=== PATIENT | male | born 1965 | race Caucasian/White ===

== ENCOUNTER 2018-04-21 18:52 | Emergency (ER) | payer MEDICAID ==
[~2018-04-21] VITALS: Ht 172.7 cm; Wt 102.1 kg
[~2018-04-21 18:52] MED LIST: CELEXA10 MG PO; FLEXERIL5 MG PO; FLOVENT HFA12 G1 INH; NORVIR100 MG PO; PREVISTA; TRUVADA 200 MG1 EACH PO
[2018-04-21] MEDS ORDERED: STRIBILD TABLE1 EACH PO (19:20)
--- NOTE | 2018-04-22 08:49 | NUR ---
CHW met with patient in ED room. Patient and CHW discussed community resources and the housing situation in town. CHW printed out all documents for resources along with long-term contact information.
== END 2018-04-21 20:47 | disposition left against medical advice (07) ==
LOC: ED 18:52
DX: Z53.21 Procedure and treatment not carried out due to patient leaving prior to being seen by health care provider (principal)

== ENCOUNTER 2018-08-13 18:00 | Emergency (ER) | payer MEDICAID ==
[~2018-08-13] VITALS: Ht 172.7 cm; Wt 102.1 kg
[~2018-08-13 18:00] MED LIST changes: +STRIBILD TABLE1 EACH PO
--- OUTSIDE RECORDS SUMMARY | 2018-08-13 18:06 | XMS ---
PreManage Notification: SLAVA AMES Security Ham Passer Events 1 event(s) in the past 18 months Most recent security events: Elopement at [facility] 04/21/2018 18:52 - Patient eloped before treatment completed. Details: Patient LWOB CRITERIA MET - Group Notification - 6 ED Visits in 6 Months - [facility] - Has Care Guidelines - [facility] - 3 Facilities in 90 Days CARE PROVIDERS There are no care providers on record at this time. Guidelines Source: Consistent Care Guidelines Date: 07/27/2018 Care Recommendation: The following guidelines were formulated by the ED Care Guidelines Committee of the Consistent Care Program on\T\nbsp;07/24/2015 . No controlled substances should be administered in the ED or prescribed from the ED for subjective pain. Primary Care Provider (PCP) is Akin MUÑOZ at .\T\nbsp; Notify PCP if giving any additional narcotics for objective findings. PCP supports enrollment in the Consistent Care Program. Medical History: HIV , muscle spasms of neck, hyperlipidemia, Tammy, COPD, Chronic mastoridits, chronic pain, neurosyphilis in male, blurred vision , abd pain, Acute pancreatitis. Sugrical History: Tonsillectomy, fistula repair, tympanoplasty, ERCP Problem List: -The patient is non-compliant with not getting HIV treatment.He was to see Dr. Zita Enriquez and has no showed to all his appointments. The last time he was seen was since November 2014. -Has had multiple reminders from the office. -The patient was to start on steroids. -The patient also has syphilis and unclear if he is getting treatment for that too. -Has not had any lab work done as instructed including CD4, viral load, RPR. -The patient is also homeless and he last was staying at the [facility]. -Have him speak with the community case manager in the emergency room to help coordiate services. The patient should be following up wishameka Dukes for his HIV medications and to follow up on his last hospitalization at [facility]. Remind the patient that he should be following up with Dr. Dukes the infection diease doctor for his HIV treatment. Pain Management: The patient is not on a pain contract. Patient last time got hydrocodone from a hospitalist from [facility] on his last admit. He got #30 hydrocodone on 05/27/2015. Please have have the patient follow up with his primary care provider before getting any more controlled substances. Other Information: The [facility] Nurse Advice Line is [phone].\T\nbsp; Please encourage the parents to utilize this resource if needed. This patient is case managed by the Consistent Care Program.\T\nbsp; Please contact the lift builder whole at your hospital for any immediate or post ED discharge needs this patient may have.\T\ nbsp; You may also contact for additional information. E.D. VISIT COUNT (12 MO.) [address] Anthony Anay TOTAL 10 NOTE: Visits indicate total known visits. ED/UCC VISIT TRACKING (12 MO.) 08/13/2018 18:01 CHELSEA Bauer TYPE: Emergency COMPLAINT: - SORE THROAT 06/23/2018 04:58 Cassandra DAMIAN TYPE: Emergency COMPLAINT: - HEADACHE 06/20/2018 22:29 Cassandra DAMIAN TYPE: Emergency COMPLAINT: - RASH JEFF THIGH 06/17/2018 20:25 Cassandra DAMIAN TYPE: Emergency COMPLAINT: - PASSED OUT 06/09/2018 18:16 Cassandra DAMIAN TYPE: Emergency COMPLAINT: - [facility] R [facility]KLES [facility] DIAGNOSES: - Mouth Lesions - Other forms of stomatitis - Oral Swelling - Candidal stomatitis - Local infection of the skin and subcutaneous tissue, unspecified 04/21/2018 18:52 CHELSEA Bauer TYPE: Emergency COMPLAINT: - MEDICAITON REFILL DIAGNOSES: - Procedure and treatment not carried out due to patient leaving prior to being seen by health care provider 03/31/2018 05:08 Cassandra DAMIAN TYPE: Emergency COMPLAINT: - BILAT EYE DRAINAGE 03/22/2018 18:28 Cassandra DAMIAN TYPE: Emergency COMPLAINT: - FAINT/ SOB 09/10/2017 07:40 Cassandra DAMIAN TYPE: Emergency COMPLAINT: - FEVER,SWEATS, VOMITING INPATIENT VISIT TRACKING (12 MO.) 09/10/2017 10:48 Cassandra DAMIAN TYPE: Medical Surgical COMPLAINT: - SEPSIS R LE CELLULITIS [email or web address]
== END 2018-08-13 18:15 | disposition home or self-care (01) ==
LOC: ED 18:00
DX: J02.9 Acute pharyngitis, unspecified (principal)

== ENCOUNTER 2019-01-01 14:32 | Emergency (ER) | payer MEDICAID ==
[~2019-01-01] VITALS: Ht 172.7 cm; Wt 102.1 kg
--- OUTSIDE RECORDS SUMMARY | 2019-01-01 14:36 | XMS ---
PreManage Notification: SLAVA AMES Security Installer Inspector Final Events 1 event(s) in the past 18 months Most recent security events: Elopement at [facility] 04/21/2018 18:52 - Patient eloped before treatment completed. Details: Patient LWOB CRITERIA MET - Group Notification - [facility] - Has Care Guidelines CARE PROVIDERS There are no care providers [...] and he last was staying at the [facility]. -Have him speak with the lead case manager in the emergency room to help coordiate services. The patient should be following up wishameka Dukes for his HIV medications and to follow up on his last hospitalization at [facility]. Remind the patient that he should be following up with Dr. Dukes the infection diease doctor for his HIV treatment. Pain Management: The patient is not on a pain contract. Patient last time got hydrocodone from a hospitalist from [facility] on his last admit. He got #30 hydrocodone on 05/27/2015. Please have have the patient follow up with his primary care provider before getting any more controlled substances. Other Information: The [facility] Nurse Advice Line is [phone].\T\nbsp; Please encourage the parents to utilize this resource if needed. This patient is case managed by the Consistent Care Program.\T\nbsp; Please contact the library media specialist at your hospital for any immediate or post ED discharge needs this patient may have.\T\ nbsp; You may also contact for additional information. E.D. VISIT COUNT (12 MO.) [address] [facility] NOTE: Visits indicate total known visits. ED/C VISIT TRACKING (12 MO.) 01/01/2019 14:34 CHELSEA Bauer TYPE: Emergency COMPLAINT: - RIGHT EAR PAIN/RIGHT EYE PAIN 08/13/2018 18:01 CHELSEA Bauer TYPE: Emergency COMPLAINT: - SORE THROAT DIAGNOSES: - Acute pharyngitis, unspecified 06/23/2018 04:58 Cassandra DAMIAN TYPE: Emergency COMPLAINT: - HEADACHE 06/20/2018 22:29 Cassandra DAMIAN TYPE: Emergency COMPLAINT: - RASH JEFF THIGH 06/17/2018 20:25 Cassandra DAMIAN TYPE: Emergency COMPLAINT: - PASSED OUT 06/09/2018 18:16 Cassandra DAMIAN TYPE: Emergency COMPLAINT: - SWOLLEN R ANKLES [facility]16/2018 [facility] DIAGNOSES: - Mouth Lesions [...] DAMIAN TYPE: Emergency COMPLAINT: - FAINT/ SOB INPATIENT VISIT TRACKING (12 MO.) No inpatient visits to display in this time frame [email or web address]
== END 2019-01-01 14:55 | disposition home or self-care (01) ==
LOC: ED 14:32
DX: H92.01 Otalgia, right ear (principal); H57.11 Ocular pain, right eye

== ENCOUNTER 2019-01-01 15:33 | Emergency (ER) | payer MEDICAID ==
[~2019-01-01] VITALS: Ht 172.7 cm; Wt 102.1 kg
--- OUTSIDE RECORDS SUMMARY | 2019-01-01 15:36 | XMS ---
PreManage Notification: SLAVA AMES Security Director Of Strategic Partnerships Events 1 event(s) in the past 18 months Most recent security events: Elopement at [facility] 04/21/2018 18:52 - Patient eloped before treatment completed. Details: Patient LWOB CRITERIA MET - [facility] - 2 Visits in 30 Days CARE PROVIDERS There are no care [...] and he last was staying at the [facility]. -Have him speak with the high risk case manager in the emergency room to help coordiate services. The patient should be following up wishameka Dukes for his HIV medications and to follow up on his last hospitalization at [facility]. Remind the patient that he should be following up with Dr. Dukes the infection diease doctor for his HIV treatment. Pain Management: The patient is not on a pain contract. Patient last time got hydrocodone from a hospitalist from [facility] on his last admit. He got #30 hydrocodone on 05/27/2015. Please have have the patient follow up with his primary care provider before getting any more controlled substances. Other Information: The [facility] Nurse Advice Line is [phone].\T\nbsp; Please encourage the parents to utilize this resource if needed. This patient is case managed by the Consistent Care Program.\T\nbsp; Please contact the information technology professor at your hospital for any immediate or post ED discharge needs this patient may have.\T\ nbsp; You may also contact for additional information. E.D. VISIT COUNT (12 MO.) [address] Anthony Anay TOTAL 11 NOTE: Visits indicate total known visits. ED/C VISIT TRACKING (12 MO.) 01/01/2019 15:34 CHELSEA Silva [place] TYPE: Emergency COMPLAINT: - BLUR VISION/POSS EAR INFECTION 01/01/2019 14:34 CHELSEA Bauer TYPE: Emergency COMPLAINT: [...] COMPLAINT: - SWOLLEN R ANKLES 05/16/2018 12:26 [facility] Jeff DAMIAN TYPE: Emergency DIAGNOSES: - Mouth Lesions [...] visits to display in this time frame [email or web address]
== END 2019-01-01 17:55 | disposition home or self-care (01) ==
LOC: ED 15:33
DX: B25.8 Other cytomegaloviral diseases (principal); H30.91 Unspecified chorioretinal inflammation, right eye; B20 Human immunodeficiency virus [HIV] disease; J44.9 Chronic obstructive pulmonary disease, unspecified; G47.30 Sleep apnea, unspecified
CPT/HCPCS: 36415; 80053; 85025; 86361; 87536; 99283

== ENCOUNTER 2019-08-31 03:46 | Emergency (ER) | payer OTHER ==
[~2019-08-31] VITALS: Ht 172.7 cm; Wt 94.3 kg
--- OUTSIDE RECORDS SUMMARY | ~2019-08-31 | XMS | Encounter Summary ---
Demographics + + + | Address | [address] | | | [place] [address] | + + + | Home Phone | | + + + | Preferred Language | Unknown | + + + | Marital Status | Single | + + + | Scientology Affiliation | Unknown | + + + | Race | White | + + + | Ethnic Group | Not or | + + + Author + + + | Author | [facility] | + + + | Organization | [facility] | + + + | Address | Unknown | + + + | Phone | Unavailable | + + + Support + + +---------+ + | Name | Relationship | Address | Phone | + + +---------+ + | Skyler Todd | ECON | Unknown | | + + +---------+ + Care Team Providers + +------+ + | Care Library Cataloging Technician Name | Role | Phone | + +------+ + | Jerome Young MD | PCP | | + +------+ + Reason for Visit +--------+ + | Reason | Comments | +--------+ + | Pain | in both feet | +--------+ + Office Visit - E/M Services (Routine) +--------+ + + + + + | Status | Reason | Specialty | Diagnoses / | Referred By | Referred To | | | | | Procedures | Contact | Contact | +--------+ + + + + + | Closed | Specialty | Internal | Diagnoses | Hector, | Juliano | | | Services | Medicine | Human | Jerome Dukes MD | MD Faustina | | | Required | | immunodefici | [address] | [address] | | | | | ency virus | [place]. | [facility] | | | | | (HIV) | Jaleesa Lazcano, | [place], | | | | | disease | [place] [address] | [place] | | | | | (HCC) | Phone: | [phone] | | | | | | [phone] | Phone: | | | | | | Fax: | [phone] | | | | | | [phone] | Fax: | | | | | | | [phone] | +--------+ + + + + + Encounter Details +--------+---------+ + + + | Date | Type | Department | Care Team | Description | +--------+---------+ + + + | 02/12/ | Office | Internal Medicine | Faustina Henao MD | HIV (human | | 2010 | Visit | Clinic at [facility] [address] | [address] [facility] | immunodeficiency | | | | [facility] | [address] [place], | virus infection) | | | | Rd Mailcode: [id number] | [place] [address] | (HCC); | | | | Physician's | [phone] | Hyperlipidemia LDL | | | | [place], | | goal < 100; | | | | [place] [address] | | Tachycardia; | | | | [phone] | | Unspecified asthma; | | | | | | Tobacco use disorder | +--------+---------+ + + + Social History + + [...] + + documented as of this encounter Last Filed Vital Signs + + + + + | Vital Sign | Reading | Time Taken | Comments | + + + + + | Blood Pressure | 130/80 | 02/12/2011 9:28 AM | | | | | PDT | | + + + + + | Pulse | 100 | 02/12/2011 9:28 AM | | | | | PDT | | + + + + + | Temperature | - | - | | + + + + + | Respiratory Rate | - | - | | + + + + + | Oxygen Saturation | - | - | | + + + + + | Inhaled Oxygen | - | - | | | Concentration | | | | + + + + + | Weight | 97.1 kg (214 lb) | 02/12/2011 9:28 AM | | | | | PDT | | + + + + + | Height | 172.7 cm (5' 8") | 02/12/2011 9:28 AM | | | | | PDT | | + + + + + | Body Mass Index | 32.54 | 02/12/2011 9:28 AM | | | | | PDT | | + + + + + documented in this encounter Patient Instructions Patient Instructions Faustina Henao MD - 02/12/2011 10:24 [address] up with Dr. Hector BELTRAN and sleep study. documented in this encounter Progress Notes Faustina Henao MD - 02/12/2011 10:23 AM PDTFormatting of this note might be different from t he original. Internal Medicine Clinic/HIV Clinic Patient Active Problem List Diagnoses Code HIV (human immunodeficiency virus infection) V08AF HPV-genital warts 078.19BU Hearing loss in right ear 389.9CV Herpes zoster without mention of complication 053.9 Unspecified asthma 493.90 Hip pain, bilateral 719.45T Hair loss 704.00K Anxiety state, unspecified 300.00 Hyperlipidemia LDL goal < 100 272.4CV Tachycardia 785.0H Tobacco use disorder 305.1 Active Medications as of 02/12/2011: albuterol-ipratropium (COMBIVENT) 18-103 mcg/Actuation Inhalation Aerosol Inhale 2 Puffs fo ur times daily as needed. clonazepam 1 mg Oral Tablet Take 1 mg by mouth once daily as needed. darunavir (PREZISTA) 400 mg Oral Tablet Take 2 Tabs by mouth once daily with breakfast. Dwayne e with food and Norvir (ritonavir). emtricitabine-tenofovir (TRUVADA) 200-300 mg Oral Tablet Take 1 Tab by mouth once daily. ergocalciferol 50,000 unit Oral Capsule Take 1 Cap by mouth every seven days. FLUTICASONE PROPIONATE (FLOVENT INHL) Inhale 2 Puffs two times daily. HYDROcodone-acetaminophen (VICODIN ES) 7.5-750 mg Oral Tablet Take 1 Tab by mouth every six hours as needed. Not to exceed 5 tablets per any 24 hour period. (Not to exceed 4000 mg of acetaminophen from all products per 24 hour period.) metoprolol succinate 25 mg Oral Tablet Extended Release 24 hr Take 1 Tab by mouth once mac y. pravastatin 20 mg Oral Tablet Take 1 Tab by mouth once daily at bedtime. Ritonavir (NORVIR) 100 mg Oral Tablet Take 100 mg by mouth once daily. Take with food and D arunavir. zolpidem 10 mg Oral Tablet Take 1 Tab by mouth once daily at bedtime as needed for sleep. Chief Complaint Patient presents with Pain in both feet History of Present Illness: Pavan is a 45 y.o. male with history of above who presents fo r follow up consultation of his HIV disease. He was last seen in the [facility] on 12/12 12/21. PCP: Jerome Young MD Pavan presents with several concerns today. At last visit, we started low dose metoprolol for evidence of persistent tachycardia. Nish states he underwent a recent ECHO but does not know the results of this study. His HR is 100 today which is improved from prior readings. He is due for f/u lipid panel today on pravastatin. We discussed Pavan' significant risk factors for CAD including, age, sex, HIV status, lipids and tobacco use. He currently smok es about 1.5 ppd. He has tried the nicotine patches in the past without success. He is rel uctant to try Chantix due to risk of mood and sleep disorder which he already has. His part ner also smokes. He feels he smokes because he "is under stress." We also discussed that t obacco use likely exacerbates his reactive airway disease. Pavan also underwent a recent s leep study and again is awaiting results. Pavan was seen recently in an outside ED for skin lesions on the dorsal surface of his fee t. He was given a course of prednisone with good response. Pavan has missed 1-2 doses of his antiretroviral therapy during the past 4 weeks. He is to lerating this regimen well. He states he underwent recent restaging tests and that his viral load is undetectable with CD4 count of 187. Pavan is otherwise stable. He denies fevers, chills, night sweats, headache, change in vi brett, odynophagia, chest pain, abdominal pain, nausea, vomiting, diarrhea, weight loss or ra shes. PHQ-9 total score: Review of Systems: As above, all other systems are negative. Reviewed social and family history and changes were updated in Epic. Physical Examination: BP 130/80 | Pulse 100 | Ht 1.727 m (5' 8") | Wt 97.07 kg (214 lb) | BMI 32.54 kg/(m^2) General: He is an alert, overweight man in NAD. Skin: No rash or petechiae. Lymph nodes: No significant cervical, supraclavicular or axillary adenopathy appreciated. HEENT: EOMI. PERRL. Conjunctivae pink. Sclera anicteric. Oropharynx: no oral hairy leukop isaias, thrush or exudates. Mucous membranes are moist. Upper dentures in place. Neck: Supple. Back: Normal stature, no spinal tenderness. Lungs: Clear to auscultation bilaterally with normal respiratory effort. Cardiac: Regular rhythm, tachy rate. No murmur, gallop auscultated. Abdomen: Protuberant, nontender. No hepatosplenomegaly or masses palpated. Extremities: No clubbing or edema. Neurologic: Alert and oriented x3. Normal gait. Labs: Lab Results Component Value Date [id number] 156* 09/04/2010 [id number] 9.0* 09/04/2010 HIVPCR 54 09/04/2010 Lab Results Component Value Date RPR Non-Reactive 09/04/2010 Lab Results Component Value Date CHOL 245 09/04/2010 LDL 142 09/04/2010 HDL 28 09/04/2010 TRI 406 09/04/2010 Lab Results Component Value Date [id number] 31 09/04/2010 Last CBC, CMP reviewed with patient. Assessment and Plan: V08AF HIV (human immunodeficiency virus infection) Plan: Patient remains stable on current antiviral therapy with fully suppressed virus and i ntact cellular immunity. He is due today for follow up testing of efficacy and toxicity of current regimen. We discussed the importance of strict adherence in order to obtain maximal benefit from his medications and prevent the development of drug resistant virus. He remai ns on prophylactic therapy for PCP. CBC, WITH DIFFERENTIAL, COMPLETE METABOLIC SET (NA,K,CL,CO2,BUN,CREAT,GLUC,CA,AST,ALT,BILI TOTAL,ALK PHOS,ALB,PROT TOTAL), HIV QUANTITATIVE PCR, PLASMA, CD4 (T CELL), BLOOD, STAFF TO GIVE: HEPATITIS A VIRUS VACCINE ADULT I will contact patient by phone with results 272.4CV Hyperlipidemia LDL goal < 100 Plan: Discussed CAD risk factors which are significant. LDL goal < 100. Would also recomme nd starting low dose aspirin for CAD/stroke prevention LIPID SET (TRIG, T CHOL, HDL, CALC LDL) 785.0H Tachycardia Plan: Unclear etiology. No recent meth use. Does use bronchodilators. Had recent ECHO bu t results unknown. No significant response to low dose metoprolol Would recommend f/u with Dr. Young to discuss ECHO results and need for further beta-blockade or Cardiology referral . 493.90 Unspecified asthma Plan: Stable on current regimen 305.1 Tobacco use disorder Plan: Discussed that tobacco is his greatest risk factor for CAD. Patient not ready to ivette t at this time. Will continue to encourage. I asked patient during visit to return to clinic in 4 months for routine follow up, sooner if acute issue arises. FAUSTINA NAVARRO MD Anay Galloway MA - 02/12/2011 9:31 AM PDTRoomed patient for Physician visit. Blood pressure, pul se, tobacco history, allergies, and weight checked. Pain level assessed. Medication review completed. Health Maintenance reviewed documented in this enc ounter Plan of Treatment Not on filedocumented as of this encounter Visit Diagnoses + + | Diagnosis | + + | HIV (human immunodeficiency virus infection) (HCC) Asymptomatic human | | immunodeficiency virus (HIV) infection status | + + | Hyperlipidemia LDL goal < 100 Other and unspecified hyperlipidemia | + + | Tachycardia Tachycardia, unspecified | + + | Unspecified asthma(493.90) Unspecified asthma | + + | Tobacco use disorder | + + documented in this encounter
--- OUTSIDE RECORDS SUMMARY | ~2019-08-31 | XMS | Encounter Summary ---
Demographics + + + | Address | [address] | | | [place] [address] | + + + | Home Phone | | + + + | Preferred Language | Unknown | + + + | Marital Status | Single | + + + | Uatsdin Affiliation | Unknown | + + + | Race | White | + + + | Ethnic Group | Not or | + + + Author + + + | Author | [facility] | + + + | Organization | [facility] | + + + | Address | Unknown | + + + | Phone | Unavailable | + + + Support + + +---------+ + | Name | Relationship | Address | Phone | + + +---------+ + | Skyler Todd | ECON | Unknown | | + + +---------+ + Care Team Providers + +------+ + | Care Tube Cleaning Operator Name | Role | Phone | + +------+ + | Jerome Young MD | PCP | | + +------+ + Encounter Details +--------+ + + + + | Date | Type | Department | Care Team | Description | +--------+ + + + + | 02/26/ | Abstract | Internal Medicine | Faustina Henao MD | | | 2010 | | [facility] [address] | [address] | | | | | [address] [facility] | Reena Carrasco [place], | | | | | [address] Mailcode: [id number] | [place] [address] | | | | | Physician's | [phone] | | | | | [place], | | | | | | [place] [address] | | | | | | [phone] | | | +--------+ + + + + Social History + + [...] Not on filedocumented as of this encounter Procedures + +--------+ + + + | Procedure Name | Priori | Date/Time | Associated Diagnosis | Comments | | | ty | | | | + +--------+ + + + | HIV QUANTITATIVE | Routin | 01/11/2011 | | Results for this | | PCR, PLASMA | e | | | procedure are in the | | | | | | results section. | + +--------+ + + + | CD4 (T CELL), BLOOD | Routin | 01/11/2011 | | Results for this | | | e | | | procedure are in the | | | | | | results section. | + +--------+ + + + | VITAMIN | Routin | 01/11/2011 | | Results for this | | D,1,25-DIHYDROXY, | e | | | procedure are in the | | SERUM | | | | results section. | + +--------+ + + + | HEPATITIS B SURFACE | Routin | 01/11/2011 | | Results for this | | AB QUANT, SERUM | e | | | procedure are in the | | | | | | results section. | + +--------+ + + + | CREATININE | Routin | 01/10/2011 | | Results for this | | | e | | | procedure are in the | | | | | | results section. | + +--------+ + + + | LIPID SET (TRIG, T | Routin | 01/10/2011 | | Results for this | | CHOL, HDL, CALC LDL) | e | | | procedure are in the | | | | | | results section. | + +--------+ + + + documented in this encounter Results VITAMIN D, 125-DIHYDROXY, SERUM (01/11/2011) + +-------+ + + + | Component | Value | Ref Range | Performed | Pathologist | | | | | At | Signature | + +-------+ + + + | VIT D, | 33 | pg/mL | NON [facility] | | | 1,25-DIHYDR | | | LAB | | | OXY | | | | | + +-------+ + + + + + | Specimen | + + | Blood - Blood | + + + +---------+ + + | Performing | Address | City/State/Zipcode | Phone Number | | Organization | | | | + +---------+ + + | NON [facility] | | | | + +---------+ + + CD4 (T CELL), BLOOD (01/11/2011) + +-------+ + + + | Component | Value | Ref Range | Performed | Pathologist | | | | | At | Signature | + +-------+ + + + | CD4 (T | 137 | /cu mm | NON [facility] | | | HELPER | | | LAB | | | CELLS) | | | | | + +-------+ + + + | CD4 % (T | 7.2 | % | NON [facility] | | | HELPER | | | LAB | | | CELLS) | | | | | + +-------+ + + + + + | Specimen | + + | Blood - Blood | + + + +---------+ + + | Performing | Address | City/State/Zipcode | Phone Number | | Organization | | | | + +---------+ + + | NON [facility] | | | | + +---------+ + + HIV QUANTITATIVE PCR, PLASMA (01/11/2011) + +-------+ + + + | Component | Value | Ref Range | Performed | Pathologist | | | | | At | Signature | + +-------+ + + + | HIV-QNT PCR | <48 | copies/mL | NON [facility] | | | | | | LAB | | + +-------+ + + + + + | Specimen | + + | Blood - Blood | + + + +---------+ + + | Performing | Address | City/State/Zipcode | Phone Number | | Organization | | | | + +---------+ + + | NON [facility] | | | | + +---------+ + + HEPATITIS B SURFACE AB QUANT, SERUM (01/11/2011) + +--------+ + + + | Component | Value | Ref Range | Performed | Pathologist | | | | | At | Signature | + +--------+ + + + | HEPATITIS B | >24.00 | | NON [facility] | | | SURF AB, | | | LAB | | | QUANT | | | | | + +--------+ + + + + + | Specimen | + + | Blood - Blood | + + + +---------+ + + | Performing | Address | City/State/Zipcode | Phone Number | | Organization | | | | + +---------+ + + | NON [facility] | | | | + +---------+ + + LIPID SET (TRIG, T CHOL, HDL, CALC LDL) (01/10/2011) + +-------+ + + + | Component | Value | Ref Range | Performed | Pathologist | | | | | At | Signature | + +-------+ + + + | CHOLESTEROL | 173 | mg/dL | NON [facility] | | | (LAB) | | | LAB | | + +-------+ + + + | TRIGLYCERID | 185 | mg/dL | NON [facility] | | | ES | | | LAB | | + +-------+ + + + | HDL | 41 | mg/dL | NON [facility] | | | CHOLESTEROL | | | LAB | | + +-------+ + + + | HDL CMNT | | | NON [facility] | | | | | | LAB | | + +-------+ + + + | LDL | 95 | mg/dL | NON [facility] | | | CHOLESTEROL | | | LAB | | | , | | | | | | CALCULATED | | | | | + +-------+ + + + + + | Specimen | + + | Blood - Blood | + + + +---------+ + + | Performing | Address | City/State/Zipcode | Phone Number | | Organization | | | | + +---------+ + + | NON [facility] | | | | + +---------+ + + CREATININE (01/10/2011) + +-------+ + + + | Component | Value | Ref Range | Performed | Pathologist | | | | | At | Signature | + +-------+ + + + | CREATININE | 0.7 | 0.5 - 1.2 mg/dL | NON [facility] | | | | | | LAB | | + +-------+ + + + + + | Specimen | + + | Blood - Blood | + + + +---------+ + + | Performing | Address | City/State/Zipcode | Phone Number | | Organization | | | | + +---------+ + + | [facility] | | | | + +---------+ + + documented in this encounter Visit Diagnoses Not on filedocumented in this encounter"
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
--- OUTSIDE RECORDS SUMMARY | ~2019-08-31 | XMS | Encounter Summary ---
Demographics + + + | Address | [address] | | | [place] [address] | + + + | Home Phone | | + + + | Preferred Language | Unknown | + + + | Marital Status | Single | + + + | Taoism Affiliation | Unknown | + + + | Race | White | + + + | Ethnic Group | Not or | + + + Author + + + | Author | [facility] | + + + | Organization | [facility] | + + + | Address | Unknown | + + + | Phone | Unavailable | + + + Support + + +---------+ + | Name | Relationship | Address | Phone | + + +---------+ + | Skyler Otdd | ECON | Unknown | | + + +---------+ + Care Team Providers + +------+ + | Care Fish Net Maker Name | Role | Phone | + +------+ + | Jerome Young MD | PCP | | + +------+ + Encounter Details +--------+ + + + + | Date | Type | Department | Care Team | Description | +--------+ + + + + | 07/01/ | Siderographist | Internal Medicine | Faustina Henao MD | | | 2010 | | [facility] [address] [address] | [address] | | | | | [address] | [address] [place], | | | | | Rd Mailcode: [id number] | [place] [address] | | | | | Physician's | [phone] | | | | | [place], | | | | | | [place] [address] | | | | | | [phone] | | | +--------+ + + + [...]
--- OUTSIDE RECORDS SUMMARY | ~2019-08-31 | XMS | Encounter Summary ---
Demographics + + + | Address | [address] | | | [place] [address] | + + + | Home Phone | | + + + | Preferred Language | Unknown | + + + | Marital Status | Single | + + + | Hindu Affiliation | Unknown | + + + | Race | White | + + + | Ethnic Group | Not or | + + + Author + + + | Author | [facility] | + + + | Organization | [facility] | + + + | Address | Unknown | + + + | Phone | Unavailable | + + + Support + + +---------+ + | Name | Relationship | Address | Phone | + + +---------+ + | Skyler Todd | ECON | Unknown | | + + +---------+ + Care Team Providers + +------+ + | Care Manager Relocation Name | Role | Phone | + [...] [address] | [address] [place], | down) | | | | Rd Mailcode: [id number] | [place] [address] | | | | | Physician's | [phone] | | | | | [place], | | | | | | [place] [address] | | | | | | [phone] | | | +--------+ + + + [...]
--- OUTSIDE RECORDS SUMMARY | ~2019-08-31 | XMS | Encounter Summary ---
Demographics + + + | Address | [address] | | | [place] [address] | + + + | Home Phone | | + + + | Preferred Language | Unknown | + + + | Marital Status | Single | + + + | Advent Affiliation | Unknown | + + + | Race | White | + + + | Ethnic Group | Not or | + + + Author + + + | Author | [facility] | + + + | Organization | [facility] | + + + | Address | Unknown | + + + | Phone | Unavailable | + + + Support + + +---------+ + | Name | Relationship | Address | Phone | + + +---------+ + | Skyler Todd | ECON | Unknown | | + + +---------+ + Care Team Providers + +------+ + | Care Operations Label Clerk Name | Role | Phone | + +------+ + | Jeorme Young MD | PCP | | + +------+ + Reason for Visit + + + | Reason | Comments | + + + | Appointment | | + + + | Insurance | | | Authorization | | + + + Encounter Details +--------+ + + + + | Date | Type | Department | Care Team | Description | +--------+ + + + + | 10/25/ | Telephone | Internal Medicine | Faustina Henao MD | Appointment; | | 2010 | | [facility] [address] [address] | [address] | Insurance | | | | [address] | [address] [place], | Authorization | | | | Rd Mailcode: [id number] | [place] [address] | | | | | Physician's | [phone] | | | | | [place], | | | | | | [place] [address] | | | | | | [phone] | | | +--------+ + + + [...]
--- OUTSIDE RECORDS SUMMARY | ~2019-08-31 | XMS | Encounter Summary ---
Demographics + + + | Address | [address] | | | [place] [address] | + + + | Home Phone | | + + + | Preferred Language | Unknown | + + + | Marital Status | Single | + + + | Evangelical Affiliation | Unknown | + + + | Race | White | + + + | Ethnic Group | Not or | + + + Author + + + | Author | [facility] | + + + | Organization | [facility] | + + + | Address | Unknown | + + + | Phone | Unavailable | + + + Support + + +---------+ + | Name | Relationship | Address | Phone | + + +---------+ + | Skyler Todd | ECON | Unknown | | + + +---------+ + Care Team Providers + +------+ + | Care Public Health Sanitarian Name | Role | Phone | + +------+ + | Jerome Young MD | PCP | | + +------+ + Reason for Visit +--------+ + | Reason | Comments | +--------+ + | Other | surgery | +--------+ + Encounter Details +--------+ + + + + | Date | Type | Department | Care Team | Description | +--------+ + + + + | 11/08/ | Telephone | Internal Medicine | Faustina Henao MD | Other (surgery) | | 2009 | | [facility] [address] [address] | [address] [facility] | | | | | [facility] | [address] Carras[address] [place], | | | | | [address] Mailcode: [id number] | [place] [address] | | | | | Physician's | [phone] | | | | | [place], | | | | | | [place] [address] | | | | | | [phone] | | | +--------+ + + + [...]
--- OUTSIDE RECORDS SUMMARY | ~2019-08-31 | XMS | Encounter Summary ---
Demographics + + + | Address | [address] | | | [place] [address] | + + + | Home Phone | | + + + | Preferred Language | Unknown | + + + | Marital Status | Single | + + + | Hinduism Affiliation | Unknown | + + + | Race | White | + + + | Ethnic Group | Not or | + + + Author + + + | Author | [facility] | + + + | Organization | [facility] | + + + | Address | Unknown | + + + | Phone | Unavailable | + + + Support + + +---------+ + | Name | Relationship | Address | Phone | + + +---------+ + | Skyler Todd | ECON | Unknown | | + + +---------+ + Care Team Providers + +------+ + | Care Assistant Professor Of Dietetics Name | Role | Phone | + +------+ + | Jerome Young MD | PCP | | + +------+ + Encounter Details +--------+ + + + + | Date | Type | Department | Care Team | Description | +--------+ + + + + | 03/27/ | Orders Only | [facility] Primary Care | Faustina Henao MD | | | 2010 | | at [facility] | [address] | | | | | [address] | [place] [address], | | | | | [address] Carrasco Mailcode: | [place] [address] | | | | | [id number] Physician's | [phone] | | | | | [place], | | | | | | [place] [address] | | | | | | [phone] | | | +--------+ + + + [...]
--- OUTSIDE RECORDS SUMMARY | ~2019-08-31 | XMS | Encounter Summary ---
Demographics + + + | Address | [address] | | | [place] [address] | + + + | Home Phone | | + + + | Preferred Language | Unknown | + + + | Marital Status | Single | + + + | Sabianist Affiliation | Unknown | + + + | Race | White | + + + | Ethnic Group | Not or | + + + Author + + + | Author | [facility] | + + + | Organization | [facility] | + + + | Address | Unknown | + + + | Phone | Unavailable | + + + Support + + +---------+ + | Name | Relationship | Address | Phone | + + +---------+ + | Skyler Todd | ECON | Unknown | | + + +---------+ + Care Team Providers + +------+ + | Care Pipe Organ Mechanic Apprentice Name | Role | Phone | + [...] | 2011 | | [facility] [address] [address] | | | | | | [address] | | | | | | Rd Mailcode: [id number] | | | | | | Physician's | | | | | | [place], | | | | | | [place] [address] | | | | | | [phone] | | | +--------+ + + + [...]
--- OUTSIDE RECORDS SUMMARY | ~2019-08-31 | XMS | Encounter Summary ---
Demographics + + + | Address | [address] | | | [place] [address] | + + + | Home Phone | | + + + | Preferred Language | Unknown | + + + | Marital Status | Single | + + + | Latter-Day Affiliation | Unknown | + + + [...] Team Providers + +------+ + | Care Loop Machine Operator Name | Role | Phone | [...] | Required | | immunodefici | [address] | [address] [facility] | | | | | ency virus | [address]. | [facility] | | | | | (HIV) | [address], | [place], | | | | | disease | [place] [address] | [place] | | | | | (HCC) | Phone: | [address] | | | | | | [phone] | Phone: | | | | | | Fax: | [phone] | | | | | | [phone] | Fax: | | | | | | | [phone] | +--------+ + + + + + Encounter Details +--------+---------+ + + + | Date | Type | Department | Care Team | Description | +--------+---------+ + + + | 02/12/ | Office | Internal Medicine | Faustina Henao MD | HIV (human | | 2010 | Visit | [facility] [address] [address] | [address] [facility] | immunodeficiency | | | | [facility] | [address] [place], | virus infection) | | | | Rd Mailcode: [id number] | [place] [address] | (HCC); | | | | Physician's | [phone] | Hyperlipidemia LDL | | | | [place], | | goal < 100; | | | | [place] [address] | | Tachycardia; | | | | [phone] | | Unspecified asthma; | | | [...] disease. He was last seen in the [facility] on 12/12 12/21. PCP: Jerome [...] gait. Labs: Lab Results Component Value Date [id number] 156* 09/04/2010 [id number] 9.0* 09/04/2010 HIVPCR 54 09/04/2010 Lab Results Component Value Date RPR Non-Reactive 09/04/2010 Lab Results Component Value Date CHOL 245 09/04/2010 LDL 142 09/04/2010 HDL 28 09/04/2010 TRI 406 09/04/2010 Lab Results Component Value Date [id number] 31 09/04/2010 Last CBC, CMP reviewed with [...]
--- OUTSIDE RECORDS SUMMARY | ~2019-08-31 | XMS | Encounter Summary ---
Demographics + + + | Address | [address] | | | [place] [address] | + + + | Home Phone [...] Author + + + | Author | [facility] | + + + | Organization | [facility] | + + + | Address | Unknown | + + + | Phone | Unavailable | + + + Support + + +---------+ + | Name | Relationship | Address | Phone | + + +---------+ + | Skyler Todd | ECON | Unknown | | + + +---------+ + Care Team Providers + +------+ + | Care Special Procedure Technologist Name | Role | Phone | + [...] Description | +--------+--------+ + + + | 03/06/ | Refill | Internal Medicine | Faustina Henao MD | Refill Request | | 2010 | | [facility] [address] | [address] | | | | | [facility] | [address], | | | | | Rd Mailcode: [id number] | [place] [address] | | | | | Physician's | [phone] | | | | | [place], | | | | | | [place] [address] | | | | | | [phone] | | | +--------+--------+ + + + [...]
--- OUTSIDE RECORDS SUMMARY | ~2019-08-31 | XMS | Encounter Summary ---
Demographics + + + | Address | [address] | | | [place] [address] | + + + | Home Phone [...] Author + + + | Author | [facility] | + + + | Organization | [facility] | + + + | Address | Unknown | + + + | Phone | Unavailable | + + + Support + + +---------+ + | Name | Relationship | Address | Phone | + + +---------+ + | Skyler Todd | ECON | Unknown | | + + +---------+ + Care Team Providers + +------+ + | Care Engineering Technology Instructor Name | Role | Phone | + [...] | immunodeficiency | | | | at [facility] 3rd Floor | | virus infection) | | | | [address] | | ([facility]) | | | | [place] Carrasco [place], | | | | | | [place] [address] | | | | | | [phone] | | | +--------+------+ + + + [...] | [place] DEPARTMENT OF | [address] | [place] [address] | | | PATHOLOGY | [address] [...] + + + + + | [facility] | [address] | [place] [address] | | | PATHOLOGY | [address] [...] + + + | [facility] | [facility] | | [place] [address] | REGIONAL | | [place] [address] | LABORATORY | + + + + + + + + | Performing | Address | City/State/Zipcode | Phone Number | | Organization | | | | + + + + + | [facility] | [address] | [place] [address] | | | LABORATORY | | | [...] DEPARTMENT OF | [address] | [place] [address] | | | PATHOLOGY | [address] [...] [facility] | [address] | [place] [address] | | | DIAGNOSTIC | [address] [...] | | | DEPARTMENT | | | [place] | | | OF | | | [...] + + + + + | [facility] | [address] | [place] [address] | | | PATHOLOGY | [address] [...] + + + + + | [facility] | [address] | [place] [address] | | | PATHOLOGY | [address] [...] + + + + + | [facility] | [address] | [place] [address] | | | PATHOLOGY | [address] [...] + + + + + | [facility] | [address] | [place] [address] | | | PATHOLOGY | [address] | | | + + + + + documented in this encounter Visit Diagnoses + + | Diagnosis | + + | HIV (human immunodeficiency virus infection) (HCC) Asymptomatic human | | immunodeficiency virus (HIV) infection status | + + documented in this encounter"
--- OUTSIDE RECORDS SUMMARY | ~2019-08-31 | XMS | Encounter Summary ---
Demographics + + + | Address | [address] | | | [place] [address] | + + + | Home Phone [...] Author + + + | Author | [facility] | + + + | Organization | [facility] | + + + | Address | Unknown | + + + | Phone | Unavailable | + + + Support + + +---------+ + | Name | Relationship | Address | Phone | + + +---------+ + | Skyler Todd | ECON | Unknown | | + + +---------+ + Care Team Providers + +------+ + | Care Wardrobe Specialist Name | Role | Phone | + [...] | | | | immunodefici | [address] | [address] [facility] | | | | | ency virus | [address]. | [facility] | | | | | (HIV) | [address] [place], | [place], | | | | | disease | [place] [address] | [place] | | | | | (HCC) | Phone: | [address] | | | | | | [phone] | Phone: | | | | | | Fax: | [phone] | | | | | | [phone] | Fax: | | | | | | | [phone] | +--------+--------+ + + + + Encounter Details +--------+---------+ + + + | Date | Type | Department | Care Team | Description | +--------+---------+ + + + | 01/20/ | Office | Internal Medicine | Faustina Henao MD | HIV (human | | 2011 | Visit | [facility] [address] [address] | [address] [facility] | immunodeficiency | | | | [facility] | [place], | virus infection) | | | | Rd Mailcode: [id number] | [place] [address] | (HCC); | | | | Physician's | [phone] | Hyperlipidemia LDL | | | | [place], | | goal < 100; Anxiety | | | | [place] [address] | | state, unspecified | | | | [phone] | | | +--------+---------+ + + + [...] was last seen for f/u in the [facility] on 02/12/2011. Since the [...] was negative. Establishing with new PCP at [facility]. Pavan is otherwise stable. He denies fevers, [...] gait. Labs: Lab Results Component Value Date [id number] 321 08/27/2011 [id number] 10 08/27/2011 HIVPCR <48 01/11/2011 Lab Results Component Value Date RPR Non-Reactive 09/04/2010 Lab Results Component Value Date CHOL 173 01/10/2011 LDL 95 01/10/2011 HDL 41 01/10/2011 TRI 185 01/10/2011 Lab Results Component Value Date [id number] 31 09/04/2010 Last CBC, CMP reviewed with [...] [facility] | [facility] | | [place] [address] | REGIONAL | | [place] [address] | LABORATORY | + + + + + + + + | Performing | Address | City/State/Zipcode | Phone Number | | Organization | | | | + + + + + | [facility] | [address] | [place] [address] | | | LABORATORY | | | [...] DEPARTMENT OF | [address] | [place] [address] | | | PATHOLOGY | [address] [...] + + + | [facility] | [address] | [place] [address] | | | DIAGNOSTIC | [address] [...] | | | DEPARTMENT | | | [place] | | | OF | | | [...] | + + + + + | [facility] | [address] | [place] [address] | | | PATHOLOGY | [address] [...] | + + + + + | [facility] DEPARTMENT | [address] | [place] [address] | | | PATHOLOGY | [address] [...] | + + + + + | [facility] | [address] | [place] [address] | | | PATHOLOGY | [address] [...] | + + + + + | [facility] | [address] | [place] [address] | | | PATHOLOGY | [address] [...]
--- OUTSIDE RECORDS SUMMARY | ~2019-08-31 | XMS | Encounter Summary ---
Demographics + + + | Address | [address] | | | [place] [address] | + + + | Home Phone | | + + + | Preferred Language | Unknown | + + + | Marital Status | Single | + + + | Mandaen Affiliation | Unknown | + + + [...] Phone | + + +---------+ + | Skyelr Todd | ECON | Unknown | | + + +---------+ + Care Team Providers + +------+ + | Care Sole Stitcher Hand Name | Role | Phone | + [...] [facility] [address] | [address] [facility] | | | | | [facility] | [address] [place], | | | | | Rd Mailcode: [id number] | [place] [address] | | | | | Physician's | [phone] | | | | | [place], | | | | | | [place] [address] | | | | | | [phone] | | | +--------+ + + + [...]
--- OUTSIDE RECORDS SUMMARY | ~2019-08-31 | XMS | Encounter Summary ---
Demographics + + + | Address | [address] | | | [place] [address] | + + + | Home Phone | | + + + | Preferred Language | Unknown | + + + | Marital Status | Single | + + + | Restorationism Affiliation | Unknown | + + + [...] Providers + +------+ + | Care Director Learning Services Name | Role | Phone | + [...] 2009 | Visit | Clinic at [facility] [address] | [address] [facility] | immunodeficiency | | | | [facility] | Reena Carrasco [place], | virus infection) | | | | Rd Mailcode: [id number] | [place] [address] | ([facility]) (Primary Dx); | | | | Physician's | [phone] | Herpes zoster | | | | [place], | | without mention of | | | | [place] [address] | | complication; | | | | [phone] | | Hearing loss in | | [...] documented in this encounter Progress Notes Brittney Godoy - 09/04/2010 3:49 PM PDT Addended by: BRITTNEY GODOY on: 09/04/2010 Modules accepted: Orders austina Heano MD - 1:50 PM PDT Internal Medicine Clinic/HIV Clinic Identifying Data: Pavan is a 44 y.o. HIV infected male who presents to [facility] care. History of Present Illness: Pavan reports he was first diagnosed with HIV-infection in 29 04 in [place], when he presented for routine screening . [...] 289. He states his current provider in [facility], recently recommended he change his boosted darunavir to twice daily. Pavan notes, however , that he does occasionally miss his evening dose of his PIs. Currently, Pavan states he has recently recovered from a recent hospitalization in [place], [place] for a bronchitis and asthma exacerbation. [...] he feels is related to living in [facility]. He denies any problems with fevers, chills [...] 09/04/2010 PPV23 09/04/2010 Pavan was born in [place], [place]. He has lived in [place], [place] and [facility]. He chase es in [facility] with his partner and a dog. Physicial Examination: BP 144/88 | Pulse 114 | Temp (Src) 36.7 C (98 F) (Oral) | Ht 1.753 m (5' 9") | Wt 94.66 6 kg (208 lb 11.2 oz) | BMI 30.82 kg/(m^2) General: He is an alert, overweight man in [facility]. Skin: No rash or petechiae. Lymph [...] atory sense intact throughout. He has normal slnbql-om-ygjy exam. Normal gait. DTRs are 2+ and [...] + + + | [facility] ([address] [facility]) [facility] | [place] | | [place] [address] | REGIONAL | | [place] [address] | LABORATORY | + + + + + + + + | Performing | Address | City/State/Zipcode | Phone Number | | Organization | | | | + + + + + | [facility] | [address] | [place] [address] | | | LABORATORY | | | [...] Justin | JUSTIN | | [place] [address] | REGIONAL | | [place] [address] | LABORATORY | + + + + + + + + | Performing | Address | City/State/Zipcode | Phone Number | | Organization | | | | + + + + + | [facility] | [address] | [place] [address] | | | LABORATORY | | | [...] At | + + + | [facility] ([facility]) [facility] | [place] | | [place] [address] | REGIONAL | | [place] [address] | LABORATORY | + + + + + + + + | Performing | Address | City/State/Zipcode | Phone Number | | Organization | | | | + + + + + | [facility] | [address] | [place] [address] | | | LABORATORY | | | [...] At | + + + | [facility] ([facility]) [facility] | [place] | | [place] [address] [facility] | REGIONAL | | [place] [address] | LABORATORY | + + + + + + + + | Performing | Address | City/State/Zipcode | Phone Number | | Organization | | | | + + + + + | [facility] | [address] | [place] [address] | | | LABORATORY | | | [...] + + | [facility] | [address] | [place] [address] | | | PATHOLOGY | [address] [...] [place], | | | | | | [place] [address] | | | | | | [phone] | | | | | | | | | | | | [email or web address], | | | | | | Loyda [...] [facility] | [address] | [place], [place] | | | UNIV PTH - INTFC | | [address] | | + + + + + [...] Tucker | T[place] | | [place] [address] | REGIONAL | | [place] [address] | LABORATORY | + + + + + + + + | Performing | Address | City/State/Zipcode | Phone Number | | Organization | | | | + + + + + | [facility] | [address] | [place] [address] | | | LABORATORY | | | | + + + + + HIV QUANTITATIVE PCR, PLASMA (09/04/2010 12:09 PM PDT) + + + + + + | Component | Value | Ref Range | Performed | Pathologist | | | | | At | Signature | + + + + + + | HIV-QNT PCR | 54 | copies/mL | [facility] | | | | | | AL GENETICS | | | | | | LABS | | + + + + + + | HIV QUANT | Plasma | | [facility] | | | SPECIMEN | | | AL GENETICS | | | TYPE | | | LABS | | + + + + + + | HIV QUANT | Reportable Range: | | [facility] | | | INTERPRETAT | 48-10,000,000 HIV-1 [...] + + + + | [facility] | [facility] | [place] [address] | | | GENETICS LABS | [address] | | | | | AVE. [...] | CD4 (T Cell), whole blood | [facility] | | | DEPARTMENT OF | | | PATHOLOGY | + + + + + + + + | Performing | Address | City/State/Zipcode | Phone Number | | Organization | | | | + + + + + | [facility] DEPARTMENT OF | [address] [facility] | [place] [address] | | | PATHOLOGY | [address] [...] | | | DEPARTMENT | | | [place]AN | | | OF | | | [...] DEPARTMENT OF | [address] | [place] [address] | | | PATHOLOGY | [address] [...] + + | [facility] | [address] | [place] [address] | | | PATHOLOGY | [address] [...]
--- OUTSIDE RECORDS SUMMARY | ~2019-08-31 | XMS | Encounter Summary ---
Demographics + + + | Address | [address] | | | [place] [address] | + + + | Home Phone | | + + + | Preferred Language | Unknown | + + + | Marital Status | Single | + + + | Druze Affiliation | Unknown | + + + [...] Team Providers + +------+ + | Care Silver Solution Mixer Name | Role | Phone | + +------+ + | Jerome Young MD | PCP | | + +------+ + Reason for Visit +--------+ + | Reason | Comments | +--------+ + | Other | | +--------+ + Encounter Details +--------+ + + + + | Date | Type | Department | Care Team | Description | +--------+ + + + + | 02/18/ | Telephone | Internal Medicine | Faustina Henao MD | | | 2011 | | Clinic at [facility] [address] | [address] | | | | | [facility] | Reena Carrasco [place], | | | | | Rd Mailcode: [id number] | [place] [address] | | | | | Physician's | [phone] | | | | | [place], | | | | | | [place] [address] | | | | | | [phone] | | | +--------+ + + + [...]
--- OUTSIDE RECORDS SUMMARY | ~2019-08-31 | XMS | Encounter Summary ---
Demographics + + + | Address | [address] | | | [place] [address] | + + + | Home Phone | | + + + | Preferred Language | Unknown | + + + | Marital Status | Single | + + + | Pentecostal Affiliation | Unknown | + + + [...] Team Providers + +------+ + | Care Disaster Recovery Specialist Name | Role | Phone | [...] | | | | immunodefici | [address] | [address] [facility] | | | | | ency virus | [place]. | [facility] | | | | | (HIV) | Jaleesa [address], | [place], | | | | | disease | [place] [address] | [place] | | | | | (HCC) | Phone: | [address] | | | | | | [phone] | Phone: | | | | | | Fax: | [phone] | | | | | | [phone] | Fax: | | | | | | | [phone] | +--------+--------+ + + + + Encounter Details +--------+---------+ + + + | Date | Type | Department | Care Team | Description | +--------+---------+ + + + | 01/20/ | Office | Internal Medicine | Faustina Henao MD | HIV (human | | 2011 | Visit | Clinic at [facility] | [address] [facility] | immunodeficiency | | | | [facility] | Reena [place], | virus infection) | | | | Rd Mailcode: [id number] | [place] [address] | (HCC); | | | | Physician's | [phone] | Hyperlipidemia LDL | | | | [place], | | goal < 100; Anxiety | | | | [place] [address] | | state, unspecified | | | | [phone] | | | +--------+---------+ + + + [...] was last seen for f/u in the [facility] HIV [facility] on 02/12/2011. Since [...] was negative. Establishing with new PCP at [facility]. Pavan is otherwise stable. He denies fevers, [...] gait. Labs: Lab Results Component Value Date [id number] 321 08/27/2011 IA8TRTOVVR 10 08/27/2011 HIVPCR <48 01/11/2011 Lab Results Component Value Date RPR Non-Reactive 09/04/2010 Lab Results Component Value Date CHOL 173 01/10/2011 LDL 95 01/10/2011 HDL 41 01/10/2011 TRI 185 01/10/2011 Lab Results Component Value Date [id number] 31 09/04/2010 Last CBC, CMP reviewed with [...] [facility] | [facility] | | [place] [address] | REGIONAL | | [place] [address] | LABORATORY | + + + + + + + + | Performing | Address | City/State/Zipcode | Phone Number | | Organization | | | | + + + + + | [facility] | [address] | [place] [address] | | | LABORATORY | | | [...] DEPARTMENT OF | [address] | [place] [address] | | | PATHOLOGY | [address] [...] + + + | [facility] | [address] | [place] [address] | | | DIAGNOSTIC | [address] [...] | DEPARTMENT | | | [place] | | | OF | | | [...] | + + + + + | [facility] | [address] | [place] [address] | | | PATHOLOGY | [address] [...] | + + + + + | [facility] DEPARTMENT | [address] | [place] [address] | | | PATHOLOGY | [address] [...] | + + + + + | [facility] | [address] | [place] [address] | | | PATHOLOGY | [address] [...] | + + + + + | [facility] | [address] | [place] [address] | | | PATHOLOGY | [address] [...]
--- OUTSIDE RECORDS SUMMARY | ~2019-08-31 | XMS | Encounter Summary ---
Demographics + + + | Address | [address] | | | [place] [address] | + + + | Home Phone [...] Team Providers + +------+ + | Care Transportation Job Titles Name | Role | Phone | + +------+ + | Jerome Young MD | PCP | | + +------+ + Encounter Details +--------+ + + + + | Date | Type | Department | Care Team | Description | +--------+ + + + + | 03/27/ | Orders Only | [facility] Primary Care | Faustina Henao MD | | | 2010 | | at [facility] | [address] | | | | | [address] | Reena Carrasco [place], | | | | | Reena Carrasco Mailcode: | [place] [address] | | | | | [id number] Physician's | [phone] | | | | | [place], | | | | | | [place] [address] | | | | | | [phone] | | | +--------+ + + + [...]
--- OUTSIDE RECORDS SUMMARY | ~2019-08-31 | XMS | Encounter Summary ---
Demographics + + + | Address | [address] | | | [place] [address] | + + + | Home Phone | | + + + | Preferred Language | Unknown | + + + | Marital Status | Single | + + + | Zoroastrian Affiliation | Unknown | + + + [...] Team Providers + +------+ + | Care Mailroom Coordinator Name | Role | Phone | [...] | Clinic at [facility] [address] | [address] [facility] | | | | | [facility] | Reena Carrasco [place], | | | | | [address] Mailcode: [id number] | [place] [address] | | | | | Physician's | [phone] | | | | | [place], | | | | | | [place] [address] | | | | | | [phone] | | | +--------+ + + + [...]
--- OUTSIDE RECORDS SUMMARY | ~2019-08-31 | XMS | Encounter Summary ---
Demographics + + + | Address | [address] | | | [place] [address] | + + + | Home Phone | | + + + | Preferred Language | Unknown | + + + | Marital Status | Single | + + + | Restoration Affiliation | Unknown | + + + | Race | White | + + + | Ethnic Group | Not or | + + + Author + + + | Author | [facility] | + + + | Organization | [facility] | + + + | Address | Unknown | + + + | Phone | Unavailable | + + + Support + + +---------+ + | Name | Relationship | Address | Phone | + + +---------+ + | Skyler Todd | ECON | Unknown | | + + +---------+ + Care Team Providers + +------+ + | Care Heel Lift Gouger Name | Role | Phone | + [...] Eben | | | | | [facility] | [facility], | | | | | Rd Mailcode: [id number] | [place] [address] | | | | | Physician's | [phone] | | | | | [place], | | | | | | [place] [address] | | | | | | [phone] | | | +--------+--------+ + + + [...]
--- OUTSIDE RECORDS SUMMARY | ~2019-08-31 | XMS | Encounter Summary ---
Demographics + + + | Address | [address] | | | [place] [address] | + + + | Home Phone [...] Team Providers + +------+ + | Care Magnesium Mill Operator Name | Role | Phone | + +------+ + | Faustian Henao MD | PCP | | + +------+ + Encounter Details +--------+------+ + + + | Date | Type | Department | Care Team | Description | +--------+------+ + + + | 09/04/ | Lab | Laboratory, | | HIV (human | | 2009 | | Specimen Collection | | immunodeficiency | | | | at [facility] 3rd Floor | | virus infection) | | | | [address] | | ([facility]) | | | | Reena Carrasco [place], | | | | | | [place] [address] | | | | | | [phone] | | | +--------+------+ + + + [...] | + + + + + | [facility] DEPARTMENT | [address] | [place] [address] | | | PATHOLOGY | [address] [...] [facility] | [address] | [place] [address] | | | PATHOLOGY | [address] [...] [facility] | [facility] | | [place] [address] [facility] [address] | REGIONAL | | [place] [address] | LABORATORY | + + + + + + + + | Performing | Address | City/State/Zipcode | Phone Number | | Organization | | | | + + + + + | [facility] | [address] | [place] [address] | | | LABORATORY | | | [...] At | + + + | [facility] ([facility] [address]) [facility] | [place] | | [place] [address] | REGIONAL | | [place] [address] | LABORATORY | + + + + + + + + | Performing | Address | City/State/Zipcode | Phone Number | | Organization | | | | + + + + + | [facility] | [address] | [place] [address] | | | LABORATORY | | | [...] At | + + + | [facility] ([facility]) [facility] | [place] | | [place] [address] | REGIONAL | | [place] [address] | LABORATORY | + + + + + + + + | Performing | Address | City/State/Zipcode | Phone Number | | Organization | | | | + + + + + | [facility] | [address] | [place] [address] | | | LABORATORY | | | [...] + + + | [facility] ([address] [facility]) [place] | [place] | | [place] [address] | REGIONAL | | [place] [address] | LABORATORY | + + + + + + + + | Performing | Address | City/State/Zipcode | Phone Number | | Organization | | | | + + + + + | [facility] | [address] | [place] [address] | | | LABORATORY | | | [...] | + + + + + | [facility] DEPARTMENT OF | [address] | [place] [address] | | | PATHOLOGY | [address] [...] | | | | | | [address] [facility] [place], | | | | | | [place] [address] | | | | | | [phone] | | | | | | | | | | | | [email or web address], | | | | | | [place]oyda [...] [facility] | [address] | [place], [place] | | | UNIV PTH - INTFC | | [address] | | + + + + + [...] [facility] | [place] | | [place] [address] [facility] | REGIONAL | | [place] [address] | LABORATORY | + + + + + + + + | Performing | Address | City/State/Zipcode | Phone Number | | Organization | | | | + + + + + | [facility] | [address] [facility] | [place] [address] | | | LABORATORY | | | [...] + + + + | [facility] | [facility] | [place] [address] | | | GENETICS LABS | [address] | | | | | AVE. [...] DEPARTMENT OF | [address] | [place] [address] | | | PATHOLOGY | [address] [...] | | | DEPARTMENT | | | FINNISH | | | OF | | | [...] DEPARTMENT OF | [address] | [place] [address] | | | PATHOLOGY | [address] [...] [facility] | [address] | [place] [address] | | | PATHOLOGY | [address] | | | + + + + + documented in this encounter Visit Diagnoses + + | Diagnosis | + + | HIV (human immunodeficiency virus infection) (HCC) Asymptomatic human | | immunodeficiency virus (HIV) infection status | + + documented in this encounter"
--- OUTSIDE RECORDS SUMMARY | ~2019-08-31 | XMS | Encounter Summary ---
Demographics + + + | Address | [address] | | | [place] [address] | + + + | Home Phone [...] Author + + + | Author | [facility] | + + + | Organization | [facility] | + + + | Address | Unknown | + + + | Phone | Unavailable | + + + Support + + +---------+ + | Name | Relationship | Address | Phone | + + +---------+ + | Skyler Todd | ECON | Unknown | | + + +---------+ + Care Team Providers + +------+ + | Care Templer Head Name | Role | Phone | + +------+ + | Jerome Young MD | PCP | | + +------+ + Encounter Details +--------+ + + + + | Date | Type | Department | Care Team | Description | +--------+ + + + + | 12/31/ | Abstract | Internal Medicine | Faustina Henao MD | | | 2011 | | Clinic at [facility] [address] | [address] | | | | | [facility] | Reena Carrasco [place], | | | | | [address] Mailcode: [id number] | [place] [address] | | | | | Physician's | [phone] | | | | | [place], | | | | | | [place] [address] | | | | | | [phone] | | | +--------+ + + + [...]
--- OUTSIDE RECORDS SUMMARY | ~2019-08-31 | XMS | Encounter Summary ---
Demographics + + + | Address | [address] | | | [place] [address] | + + + | Home Phone | | + + + | Preferred Language | Unknown | + + + | Marital Status | Single | + + + | Islam Affiliation | Unknown | + + + [...] Team Providers + +------+ + | Care Mission Worker Name | Role | Phone | + [...] | Refill | Internal Medicine | Faustina Hneao MD | Refill Request | | 2011 | | Clinic at [facility] [address] | [address] | (vitamin D) | | | | [facility] | Reena Carrasco [place], | | | | | Rd Mailcode: [id number] | [place] [address] | | | | | Physician's | [phone] | | | | | [place], | | | | | | [place] [address] | | | | | | [phone] | | | +--------+--------+ + + + [...]
--- OUTSIDE RECORDS SUMMARY | ~2019-08-31 | XMS | Encounter Summary ---
Demographics + + + | Address | [address] | | | [place] [address] | + + + | Home Phone [...] Team Providers + +------+ + | Care Integrated Circuit Design Engineer Name | Role | Phone | [...] [address] [address] | [address] | effects from | | | | [address] | [address] [place], | medication (young | | | | Rd Mailcode: [id number] | [place] [address] | pt-medication side | | | | Physician's | [phone] | effects) | | | | [place], | | | | | | [place] [address] | | | | | | [phone] | | | +--------+ + + + [...]
--- OUTSIDE RECORDS SUMMARY | ~2019-08-31 | XMS | Encounter Summary ---
Demographics + + + | Address | [address] | | | [place] [address] | + + + | Home Phone [...] Team Providers + +------+ + | Care Elevator Constructor Supervisor Name | Role | Phone | [...] | | | | | Rd Mailcode: [id number] | | | | | | Physician's | | | | | | [place], | | | | | | [place] [address] | | | | | | [phone] | | | +--------+ + + + [...]
--- OUTSIDE RECORDS SUMMARY | ~2019-08-31 | XMS | Clinical Summary ---
Demographics + + + | Address | [address] | | | [place] [address] | + + + | Home Phone [...] Author + + + | Author | [facility] | + + [...] Team Providers + +------+ + | Care Agriscience Instructor Name | Role | Phone | + +------+ + | Jerome Young MD | PCP | | + +------+ + Source Comments ROMAN is fully live on both [facility]ulatory and [facility] InPatient.[facility] Allergies + + + + + [...] | | | for | | [address] [address] | | | | | | all | | [place], | | | | | | dates | | [place] [address] | | + +--------+ +--------+ + +------+ [...] laverne | | | 1 (Home) | [address] | + +--------+ +--------+ + + Advance Directives + + + + + | Type | Date Recorded | Patient | Explanation | | | | Colon And Rectal Surgeon | | + + + + + | Advance | | | | | Directives and | | | | | Living Will | | | | + + + + + | Power of | | | | | Yard Person | | | | + + + + +
--- OUTSIDE RECORDS SUMMARY | ~2019-08-31 | XMS | Encounter Summary ---
Demographics + + + | Address | [address] | | | [place] [address] | + + + | Home Phone | | + + + | Preferred Language | Unknown | + + + | Marital Status | Single | + + + | Orthodox Affiliation | Unknown | + + [...] Providers + +------+ + | Care Manager Medicare Name | Role | Phone | + [...] (vitamin D) | | | | [facility] | Reena Carrasco [place], | | | | | Rd Mailcode: [id number] | [place] [address] | | | | | Physician's | [phone] | | | | | [place], | | | | | | [place] [address] | | | | | | [phone] | | | +--------+--------+ + + + [...]
--- OUTSIDE RECORDS SUMMARY | ~2019-08-31 | XMS | Encounter Summary ---
Demographics + + + | Address | [address] | | | [place] [address] | + + + | Home Phone [...] Team Providers + +------+ + | Care Security Technician Name | Role | Phone | [...] | | | | | [facility] | Reena Carrasco [place], | | | | | Rd Mailcode: [id number] | [place] [address] | | | | | Physician's | [phone] | | | | | [place], | | | | | | [place] [address] | | | | | | [phone] | | | +--------+ + + + [...]
--- OUTSIDE RECORDS SUMMARY | ~2019-08-31 | XMS | Encounter Summary ---
Demographics + + + | Address | [address] | | | [place] [address] | + + + | Home Phone [...] Team Providers + +------+ + | Care B2B Appointment Setter Name | Role | Phone | + +------+ + | Faustina eHnao MD | PCP | | + +------+ [...] | Clinic at [facility] [address] | [address] [facility] | immunodeficiency | | | | [facility] | Reena Carrasco [place], | virus infection) | | | | Rd Mailcode: [id number] | [place] [address] | ([facility]) (Primary Dx); | | | | Physician's | [phone] | Herpes zoster | | | | Mak [place], | | without mention of | | | | [place] [address] | | complication; | | | | [phone] | | Hearing loss in | | [...] GODOY on: 09/04/2010 Modules accepted: Orders austina Henao MD - 1:50 PM PDT Internal Medicine Clinic/HIV Clinic Identifying Data: Pavan is a 44 y.o. HIV infected male [facility]. History of Present Illness: Pavan reports he was first diagnosed with HIV-infection in 29 04 in [place], when he presented for routine screening . [...] 289. He states his current provider in [facility], recently recommended he change his boosted darunavir to twice daily. Pavan notes, however , that he does occasionally miss his evening dose of his PIs. Currently, Pavan states he has recently recovered from a recent hospitalization in [place], [place] for a bronchitis and asthma exacerbation. [...] he feels is related to living in [facility]. He denies any problems with fevers, chills [...] 09/04/2010 PPV23 09/04/2010 Pavan was born in [place], [place]. He has lived in [place], [place] and [facility]. He chase es in [facility] with his partner and a dog. Physicial Examination: BP 144/88 | Pulse 114 | Temp (Src) 36.7 C (98 F) (Oral) | Ht 1.753 m (5' 9") | Wt 94.66 6 kg (208 lb 11.2 oz) | BMI 30.82 kg/(m^2) General: He is an alert, overweight man in [facility]. Skin: No rash or petechiae. Lymph [...] atory sense intact throughout. He has normal pygczn-iw-mgqh exam. Normal gait. DTRs are 2+ and [...] also screen for viral hepatitis, STIs and illy min D deficiency. He is interested in [...] + + + | [facility] ([address] [facility]) Tucker | T[place] | | [place] [address] [facility] | REGIONAL | | [place] [address] | LABORATORY | + + + + + + + + | Performing | Address | City/State/Zipcode | Phone Number | | Organization | | | | + + + + + | [facility] | [address] | [place] [address] | | | LABORATORY | | | [...] Justin | JUSTIN | | [place] [address] | REGIONAL | | [place] [address] | LABORATORY | + + + + + + + + | Performing | Address | City/State/Zipcode | Phone Number | | Organization | | | | + + + + + | [facility] | [address] | [place] [address] | | | LABORATORY | | | [...] At | + + + | [facility] ([facility]) [facility] | T[place] | | [facility] [place] [address] | REGIONAL | | [place] [address] | LABORATORY | + + + + + + + + | Performing | Address | City/State/Zipcode | Phone Number | | Organization | | | | + + + + + | [facility] | [address] | [place] [address] | | | LABORATORY | | | [...] At | + + + | [facility] ([facility]) Tucker | TUCKER | | [place] [address] [facility] | REGIONAL | | [place] [address] | LABORATORY | + + + + + + + + | Performing | Address | City/State/Zipcode | Phone Number | | Organization | | | | + + + + + | [facility] | [address] | [place] [address] | | | LABORATORY | | | [...] | + + + + + | [facility] | [address] | [place] [address] | | | PATHOLOGY | [address] [...] [place], | | | | | | [place] [address] | | | | | | [phone] | | | | | | | | | | | | [email or web address], | | | | | | Loyda [...] [facility] | [address] | [place], [place] | | | UNIV PTH - INTFC | | [address] | | + + + + + [...] Tucker | TUCKER | | [place] [address] | REGIONAL | | [place] [address] | LABORATORY | + + + + + + + + | Performing | Address | City/State/Zipcode | Phone Number | | Organization | | | | + + + + + | [facility] | [address] | [place] [address] | | | LABORATORY | | | | + + + + + HIV QUANTITATIVE PCR, PLASMA (09/04/2010 12:09 PM PDT) + + + + + + | Component | Value | Ref Range | Performed | Pathologist | | | | | At | Signature | + + + + + + | HIV-QNT PCR | 54 | copies/mL | [facility] | | | | | | [facility] | | | | | | LABS | | + + + + + + | HIV QUANT | Plasma | | [facility] | | | SPECIMEN | | | [facility] | | | TYPE | | | LABS | | + + + + + + | HIV QUANT | Reportable Range: | | [facility] | | | INTERPRETAT | 48-10,000,000 HIV-1 [...] + + + + | [facility] | [facility] | [place] [address] | | | GENETICS LABS | [address] | | | | | AVE. [...] | CD4 (T Cell), whole blood | [facility] | | | DEPARTMENT OF | | | PATHOLOGY | + + + + + + + + | Performing | Address | City/State/Zipcode | Phone Number | | Organization | | | | + + + + + | [facility] DEPARTMENT OF | [address] [facility] | [place] [address] | | | PATHOLOGY | [address] [...] | | | DEPARTMENT | | | [facility] | | | OF | | | [...] DEPARTMENT OF | [address] | [place] [address] | | | PATHOLOGY | [address] [...] | + + + + + | [facility] | [address] | [place] [address] | | | PATHOLOGY | [address] [...]
--- OUTSIDE RECORDS SUMMARY | ~2019-08-31 | XMS | Encounter Summary ---
Demographics + + + | Address | [address] | | | [place] [address] | + + + | Home Phone [...] Team Providers + +------+ + | Care Executive Chairman Name | Role | Phone | + [...] + + | 01/10/ | Telephone | [facility] | Faustina Henao MD | Lab Draw | | 2010 | | at [facility] | [address] | | | | | [address] | [place], | | | | | Reena Carrasco Mailcode: | [place] [address] | | | | | [id number] Physician's | [phone] | | | | | [place], | | | | | | [place] [address] | | | | | | [phone] | | | +--------+ + + + [...]
--- OUTSIDE RECORDS SUMMARY | ~2019-08-31 | XMS | Encounter Summary ---
Demographics + + + | Address | [address] | | | [place] [address] | + + + | Home Phone | | + + + | Preferred Language | Unknown | + + + | Marital Status | Single | + + + | Judaism Affiliation | Unknown | + + + [...] Team Providers + +------+ + | Care Field Trainer Name | Role | Phone | + [...] [facility] [address] | [address] | (vicodin) | | | | [facility] | Reena Carrasco [place], | | | | | Rd Mailcode: [id number] | [place] [address] | | | | | Physician's | [phone] | | | | | [place], | | | | | | [place] [address] | | | | | | [phone] | | | +--------+--------+ + + + [...]
--- OUTSIDE RECORDS SUMMARY | ~2019-08-31 | XMS | Encounter Summary ---
Demographics + + + | Address | [address] | | | [place] [address] | + + + | Home Phone [...] Team Providers + +------+ + | Care Plant Attendant Or Assistant Operator Name | Role | Phone | [...] immunodeficiency | | | | at [facility] 3rd Floor | | virus infection) | | | | [address] | | ([facility]) | | | | Reena Carrasco [place], | | | | | | [place] [address] | | | | | | [phone] | | | +--------+------+ + + + [...] DEPARTMENT OF | [address] | [place] [address] | | | PATHOLOGY | [address] [...] | + + + + + | [facility] | [address] | [place] [address] | | | PATHOLOGY | [address] [...] + + + | [facility] ([address] [facility]) [facility] | [place] | | [place] [address] | REGIONAL | | [place] [address] | LABORATORY | + + + + + + + + | Performing | Address | City/State/Zipcode | Phone Number | | Organization | | | | + + + + + | [facility] | [address] | [place] [address] | | | LABORATORY | | | [...] DEPARTMENT OF | [address] | [place] [address] | | | PATHOLOGY | [address] [...] [facility] | [address] | [place] [address] | | | DIAGNOSTIC | [address] [...] | | | DEPARTMENT | | | NEPALESE | | | OF | | | [...] | + + + + + | [facility] | [address] | [place] [address] | | | PATHOLOGY | [address] [...] | + + + + + | [facility] | [address] | [place] [address] | | | PATHOLOGY | [address] [...] | + + + + + | [facility] | [address] | [place] [address] | | | PATHOLOGY | [address] [...] | + + + + + | [facility] | [address] | [place] [address] | | | PATHOLOGY | [address] | | | + + + + + documented in this encounter Visit Diagnoses + + | Diagnosis | + + | HIV (human immunodeficiency virus infection) (HCC) Asymptomatic human | | immunodeficiency virus (HIV) infection status | + + documented in this encounter"
--- OUTSIDE RECORDS SUMMARY | ~2019-08-31 | XMS | Encounter Summary ---
Demographics + + + | Address | [address] | | | [place] [address] | + + + | Home Phone [...] + + + | Author | [facility] | + + + | Organization | [facility] | + + + | Address | Unknown | + + + | Phone | Unavailable | + + + Support + + +---------+ + | Name | Relationship | Address | Phone | + + +---------+ + | Skyler Todd | ECON | Unknown | | + + +---------+ + Care Team Providers + +------+ + | Care Test Hole Driller Name | Role | Phone | + [...] [address] | | | | | [facility] | Reena Carrasco [place], | | | | | Rd Mailcode: [id number] | [place] [address] | | | | | Physician's | [phone] | | | | | [place], | | | | | | [place] [address] | | | | | | [phone] | | | +--------+--------+ + + + [...]
--- OUTSIDE RECORDS SUMMARY | ~2019-08-31 | XMS | Encounter Summary ---
Demographics + + + | Address | [address] | | | [place] [address] | + + + | Home Phone [...] Author + + + | Author | [facility] | + + + | Organization | [facility] | + + + | Address | Unknown | + + + | Phone | Unavailable | + + + Support + + +---------+ + | Name | Relationship | Address | Phone | + + +---------+ + | Skyler Todd | ECON | Unknown | | + + +---------+ + Care Team Providers + +------+ + | Care Commercial Account Officer Name | Role | Phone | [...] PPV | | | | | | [address] | | | | | | Reena Carrasco Mailcode: | | | | | | [id number] Physician's | | | | | | [place], | | | | | | [place] [address] | | | | | | [phone] | | | +--------+ + + + [...] | | + +---------+ + + | [facility] DEPARTMENT OF | | | | | RADIOLOGY | | | | + +---------+ + + documented in this encounter Visit Diagnoses + + | Diagnosis | + + | Hip pain, bilateral Pain in joint, pelvic region and thigh | + + documented in this encounter"
--- OUTSIDE RECORDS SUMMARY | ~2019-08-31 | XMS | Encounter Summary ---
Demographics + + + | Address | [address] | | | [place] [address] | + + + | Home Phone | | + + + | Preferred Language | Unknown | + + + | Marital Status | Single | + + + | Baptism Affiliation | Unknown | + + + [...] Team Providers + +------+ + | Care Superior Court Judge Name | Role | Phone | + [...] [address] | [address] | pt-appointment) | | | | [facility] [address] [place] | [address] [place], | | | | | Rd Mailcode: [id number] | [place] [address] | | | | | Physician's | [phone] | | | | | [place], | | | | | | [place] [address] | | | | | | [phone] | | | +--------+ + + + [...]
--- OUTSIDE RECORDS SUMMARY | ~2019-08-31 | XMS | Encounter Summary ---
Demographics + + + | Address | [address] | | | [place] [address] | + + + | Home Phone [...] + + + | Author | [facility] | + + + | Organization | [facility] | + + + | Address | Unknown | + + + | Phone | Unavailable | + + + Support + + +---------+ + | Name | Relationship | Address | Phone | + + +---------+ + | Skyler Todd | ECON | Unknown | | + + +---------+ + Care Team Providers + +------+ + | Care Pelt Dropper Name | Role | Phone | + [...] from | | | | [address] [place] | [address] [place], | medication (young | | | | Rd Mailcode: [id number] | [place] [address] | pt-medication side | | | | Physician's | [phone] | effects) | | | | [place], | | | | | | [place] [address] | | | | | | [phone] | | | +--------+ + + + [...]
--- OUTSIDE RECORDS SUMMARY | ~2019-08-31 | XMS | Encounter Summary ---
Demographics + + + | Address | [address] | | | [place] [address] | + + + | Home Phone | | + + + | Preferred Language | Unknown | + + + | Marital Status | Single | + + + | Muslim Affiliation | Unknown | + + + [...] Team Providers + +------+ + | Care Licensed Nuclear Operator Name | Role | Phone | [...] | Required | | immunodefici | [address] | [address] [facility] | | | | | ency virus | [address] | [facility] | | | | | (HIV) | [address] [place], | Rd [place], | | | | | disease | [place] [address] | [place] | | | | | (HCC) | Phone: | [address] | | | | | | [phone] | Phone: | | | | | | Fax: | [phone] | | | | | | [phone] | Fax: | | | | | | | [phone] | +--------+ + + + + + Encounter Details +--------+---------+ + + + | Date | Type | Department | Care Team | Description | +--------+---------+ + + + | 01/01/ | Office | Internal Medicine | Faustina Henao MD | HIV (human | | 2010 | Visit | Clinic at [facility] [address] | [address] [facility] | immunodeficiency | | | | [facility] | [address] [place], | virus infection) | | | | Rd Mailcode: [id number] | [place] [address] | (HCC) (Primary Dx); | | | | Physician's | [phone] | Unspecified asthma; | | | | [place], | | Insomnia; Anxiety | | | | [place] [address] | | state, unspecified; | | | | [phone] | | Hyperlipidemia LDL | | | [...] gait. Labs: Lab Results Component Value Date [id number] 156* 09/04/2010 [id number] 9.0* 09/04/2010 HIVPCR 54 09/04/2010 Lab Results Component Value Date RPR Non-Reactive 09/04/2010 Lab Results Component Value Date CHOL 245 09/04/2010 LDL 142 09/04/2010 HDL 28 09/04/2010 TRI 406 09/04/2010 Lab Results Component Value Date [id number] 31 09/04/2010 Last CBC, CMP reviewed with [...]
--- OUTSIDE RECORDS SUMMARY | ~2019-08-31 | XMS | Encounter Summary ---
Demographics + + + | Address | [address] | | | [place] [address] | + + + | Home Phone | | + + + | Preferred Language | Unknown | + + + | Marital Status | Single | + + + | Religion Affiliation | Unknown | + + + [...] Team Providers + +------+ + | Care Barkeep Name | Role | Phone | + [...] | immunodeficiency | | | | at [facility] 3rd Floor | | virus infection) | | | | [address] | | ([facility]) | | | | Reena Carrasco [place], | | | | | | [place] [address] | | | | | | [phone] | | | +--------+------+ + + + [...] + + + + + | [facility] DEPARTMENT | [address] | [place] [address] | | | PATHOLOGY | [address] [...] + + + + | [facility] | [address] | [place] [address] | | | PATHOLOGY | [address] [...] Tucker | [place] | | [place] [address] [facility] | REGIONAL | | [place] [address] | LABORATORY | + + + + + + + + | Performing | Address | City/State/Zipcode | Phone Number | | Organization | | | | + + + + + | [facility] | [address] | [place] [address] | | | LABORATORY | | | [...] At | + + + | [facility] ([address] [facility]) Tucker | [place] | | [place] [address] | REGIONAL | | [place] [address] | LABORATORY | + + + + + + + + | Performing | Address | City/State/Zipcode | Phone Number | | Organization | | | | + + + + + | [facility] | [address] | [place] [address] | | | LABORATORY | | | [...] At | + + + | [facility] ([facility]) [facility] | [place] | | [place] [address] | REGIONAL | | [place] [address] | LABORATORY | + + + + + + + + | Performing | Address | City/State/Zipcode | Phone Number | | Organization | | | | + + + + + | [facility] | [address] | [place] [address] | | | LABORATORY | | | [...] + + + | [facility] ([address] [facility]) [place] | [place] | | [place] [address] | REGIONAL | | [place] [address] | LABORATORY | + + + + + + + + | Performing | Address | City/State/Zipcode | Phone Number | | Organization | | | | + + + + + | [facility] | [address] | [place] [address] | | | LABORATORY | | | [...] | + + + + + | [facility] DEPARTMENT OF | [address] | [place] [address] | | | PATHOLOGY | [address] [...] | | | | | | [address] [address], | | | | | | [place] [address] | | | | | | [phone] | | | | | | | | | | | | [email or web address], | | | | | | Loyda [...] + | [facility] | [address] | [place], [place] | | | UNIV PTH - INTFC | | [address] | | + + + + + [...] Garrett | [place] | | [place] [address] [address] [facility] | REGIONAL | | [place] [address] | LABORATORY | + + + + + + + + | Performing | Address | City/State/Zipcode | Phone Number | | Organization | | | | + + + + + | [facility] | [address] [facility] | [place] [address] | | | LABORATORY | | | [...] + + + + | [facility] | [address] | [place] [address] | | | GENETICS LABS | [address] | | | | | AVE. [...] DEPARTMENT OF | [address] | [place] [address] | | | PATHOLOGY | [address] [...] | | | DEPARTMENT | | | [place] | | | OF | | | [...] DEPARTMENT OF | [address] | [place] [address] | | | PATHOLOGY | [address] [...] + + + + | [facility] | [address] | [place] [address] | | | PATHOLOGY | [address] | | | + + + + + documented in this encounter Visit Diagnoses + + | Diagnosis | + + | HIV (human immunodeficiency virus infection) (HCC) Asymptomatic human | | immunodeficiency virus (HIV) infection status | + + documented in this encounter"
--- OUTSIDE RECORDS SUMMARY | ~2019-08-31 | XMS | Encounter Summary ---
Demographics + + + | Address | [address] | | | [place] [address] | + + + | Home Phone [...] + + + | Author | [facility] | + + + | Organization | [facility] | + + + | Address | Unknown | + + + | Phone | Unavailable | + + + Support + + +---------+ + | Name | Relationship | Address | Phone | + + +---------+ + | Skyler Todd | ECON | Unknown | | + + +---------+ + Care Team Providers + +------+ + | Care International Project Manager Name | Role | Phone [...] Eben | | | | | [facility] | [address] [place], | | | | | Rd Mailcode: [id number] | [place] [address] | | | | | Physician's | [phone] | | | | | [place], | | | | | | [place] [address] | | | | | | [phone] | | | +--------+--------+ + + + [...]
--- OUTSIDE RECORDS SUMMARY | ~2019-08-31 | XMS | Encounter Summary ---
Demographics + + + | Address | [address] | | | [place] [address] | + + + | Home Phone | | + + + | Preferred Language | Unknown | + + + | Marital Status | Single | + + + | Church Affiliation | Unknown | + + + [...] Team Providers + +------+ + | Care Ship Boss Name | Role | Phone | + [...] | | [address] | [address] [place], | Authorization | | | | Rd Mailcode: [id number] | [place] [address] | | | | | Physician's | [phone] | | | | | Mak [place], | | | | | | [place] [address] | | | | | | [phone] | | | +--------+ + + + [...]
--- OUTSIDE RECORDS SUMMARY | ~2019-08-31 | XMS | Encounter Summary ---
Demographics + + + | Address | [address] | | | [place] [address] | + + + | Home Phone [...] Team Providers + +------+ + | Care Cytotechnologist/Histotechnologist Name | Role | Phone | + [...] | | | | [address] [place] | [address] [place], | | | | | Rd Mailcode: [id number] | [place] [address] | | | | | Physician's | [phone] | | | | | [place], | | | | | | [place] [address] | | | | | | [phone] | | | +--------+ + + + [...]
--- OUTSIDE RECORDS SUMMARY | ~2019-08-31 | XMS | Encounter Summary ---
Demographics + + + | Address | [address] | | | [place] [address] | + + + | Home Phone [...] Team Providers + +------+ + | Care Radio Machinist Name | Role | Phone | + [...] | | | | | [facility] | Reena Carrasco [place], | | | | | [address] Mailcode: [id number] | [place] [address] | | | | | Physician's | [phone] | | | | | [place], | | | | | | [place] [address] | | | | | | [phone] | | | +--------+ + + + [...]
--- OUTSIDE RECORDS SUMMARY | ~2019-08-31 | XMS | Encounter Summary ---
Demographics + + + | Address | [address] | | | [place] [address] | + + + | Home Phone [...] Author + + + | Author | [facility] | + + + | Organization | [facility] | + + + | Address | Unknown | + + + | Phone | Unavailable | + + + Support + + +---------+ + | Name | Relationship | Address | Phone | + + +---------+ + | Skyler Todd | ECON | Unknown | | + + +---------+ + Care Team Providers + +------+ + | Care Gas Well Pumper Name | Role | Phone | + [...] | | | | | | [place], | | | | | | [place] [address] | | | | | | [phone] | | | +--------+ + + + [...] + +---------+ + + | [facility] DEPARTMENT OF | | | | | RADIOLOGY | | | | + +---------+ + + documented in this encounter Visit Diagnoses + + | Diagnosis | + + | Hip pain, bilateral Pain in joint, pelvic region and thigh | + + documented in this encounter"
--- OUTSIDE RECORDS SUMMARY | ~2019-08-31 | XMS | Encounter Summary ---
Demographics + + + | Address | [address] | | | [place] [address] | + + + | Home Phone [...] Team Providers + +------+ + | Care Pelletizer Name | Role | Phone | + [...] | | | | | [facility] | Reena Carrasco [place], | | | | | [address] Mailcode: [id number] | [place] [address] | | | | | Physician's | [phone] | | | | | [place], | | | | | | [place] [address] | | | | | | [phone] | | | +--------+ + + + [...]
--- OUTSIDE RECORDS SUMMARY | ~2019-08-31 | XMS | Encounter Summary ---
Demographics + + + | Address | [address] | | | [place] [address] | + + + | Home Phone | | + + + | Preferred Language | Unknown | + + + | Marital Status | Single | + + + | Mormonism Affiliation | Unknown | + + + [...] Team Providers + +------+ + | Care Lithographic Photographer Name | Role | Phone | + [...] Eben | | | | | [facility] | [facility], | | | | | Rd Mailcode: [id number] | [place] [address] | | | | | Physician's | [phone] | | | | | Mak [place], | | | | | | [place] [address] | | | | | | [phone] | | | +--------+--------+ + + + [...]
--- OUTSIDE RECORDS SUMMARY | ~2019-08-31 | XMS | Clinical Summary ---
Demographics + + + | Address | [address] | | | [place] [address] | + + + | Home Phone [...] + + + | Author | [facility] | + + [...] Team Providers + +------+ + | Care Residential Finish Carpenter Name | Role | Phone | + +------+ + | Jerome Young MD | PCP | | + +------+ + Source Comments ROMAN is fully live on both [facility] Ambulatory and [facility] InPatient.[facility] Allergies + + + + + [...] + + + | Overview: sleep study [facility] | + + + + + [...] | | | for | | [address] [address] | | | | | | all | | [place], | | | | | | dates | | [place] [address] | | + +--------+ +--------+ + +------+ [...] laverne | | | 1 (Home) | [address] | + +--------+ +--------+ + + Advance Directives + + + + + | Type | Date Recorded | Patient | Explanation | | | | Head Sawyer | | + + + + + | Advance | | | | | Directives and | | | | | Living Will | | | | + + + + + | Power of | | | | | Bundler Seasonal Greenery | | | | + + + + +
--- OUTSIDE RECORDS SUMMARY | ~2019-08-31 | XMS | Encounter Summary ---
Demographics + + + | Address | [address] | | | [place] [address] | + + + | Home Phone [...] Team Providers + +------+ + | Care Photo Graphics Librarian Name | Role | Phone | [...] Eben | | | | | [facility] | [place], | | | | | Rd Mailcode: [id number] | [place] [address] | | | | | Physician's | [phone] | | | | | [place], | | | | | | [place] [address] | | | | | | [phone] | | | +--------+--------+ + + + [...]
--- OUTSIDE RECORDS SUMMARY | ~2019-08-31 | XMS | Encounter Summary ---
Demographics + + + | Address | [address] | | | [place] [address] | + + + | Home Phone [...] Team Providers + +------+ + | Care Lift Builder Whole Name | Role | Phone | + [...] | | [facility] | [place], | | | | | Rd Mailcode: [id number] | [place] [address] | | | | | Physician's | [phone] | | | | | [place], | | | | | | [place] [address] | | | | | | [phone] | | | +--------+--------+ + + + [...]
--- OUTSIDE RECORDS SUMMARY | ~2019-08-31 | XMS | Encounter Summary ---
Demographics + + + | Address | [address] | | | [place] [address] | + + + | Home Phone [...] Author + + + | Author | [facility] | + + + | Organization | [facility] | + + + | Address | Unknown | + + + | Phone | Unavailable | + + + Support + + +---------+ + | Name | Relationship | Address | Phone | + + +---------+ + | Skyler Todd | ECON | Unknown | | + + +---------+ + Care Team Providers + +------+ + | Care Juice Packaging Machines Setter Name | Role | Phone | [...] Draw | | 2010 | | at [facility] | [address] | | | | | [address] | [place], | | | | | [place] [address] Mailcode: | [place] [address] | | | | | [id number] Physician's | [phone] | | | | | [place], | | | | | | [place] [address] | | | | | | [phone] | | | +--------+ + + + [...]
--- OUTSIDE RECORDS SUMMARY | ~2019-08-31 | XMS | Encounter Summary ---
Demographics + + + | Address | [address] | | | [place] [address] | + + + | Home Phone [...] Providers + +------+ + | Care Instrument Technician Helper Name | Role | Phone | + [...] [facility] [address] | [address] | immunodeficiency | | | | [facility] | [place], | virus infection); | | | | Rd Mailcode: [id number] | [place] [address] | Unspecified asthma; | | | | Physician's | [phone] | Hyperlipidemia LDL | | | | [facility] [place], | | goal < 100; Vitamin | | | | [place] [address] | | D deficiency; Hip | | | | [phone] | | pain, bilateral; | | | [...] was seen for initial evaluation in the [facility] HIV [facility] on 09/04/10. At last [...] is nonproductive. He was referred to a roll coverer who has not yet seen. He continues [...] gait. Labs: Lab Results Component Value Date [id number] 156* 09/04/2010 [id number] 9.0* 09/04/2010 HIVPCR 54 09/04/2010 Assessment and [...] | | + +---------+ + + | [facility] DEPARTMENT OF | | | | [...]
--- OUTSIDE RECORDS SUMMARY | ~2019-08-31 | XMS | Encounter Summary ---
Demographics + + + | Address | [address] | | | [place] [address] | + + + | Home Phone [...] Team Providers + +------+ + | Care Botany Technician Name | Role | Phone | [...] | Required | | immunodefici | [address] | [address] [facility] | | | | | ency virus | [address] | [facility] | | | | | (HIV) | [address], | [address] [place], | | | | | disease | [place] [address] | [place] | | | | | (HCC) | Phone: | [address] | | | | | | [phone] | Phone: | | | | | | Fax: | [phone] | | | | | | [phone] | Fax: | | | | | | | [phone] | +--------+ + + + + + Encounter Details +--------+---------+ + + + | Date | Type | Department | Care Team | Description | +--------+---------+ + + + | 01/01/ | Office | Internal Medicine | Faustina Henao MD | HIV (human | | 2010 | Visit | Clinic at [facility] [address] | [address] [facility] | immunodeficiency | | | | [facility] | [address] [place], | virus infection) | | | | Rd Mailcode: [id number] | [place] [address] | (HCC) (Primary Dx); | | | | Physician's | [phone] | Unspecified asthma; | | | | [place], | | Insomnia; Anxiety | | | | [place] [address] | | state, unspecified; | | | | [phone] | | Hyperlipidemia LDL | | | [...] gait. Labs: Lab Results Component Value Date [id number] 156* 09/04/2010 [id number] 9.0* 09/04/2010 HIVPCR 54 09/04/2010 Lab Results Component Value Date RPR Non-Reactive 09/04/2010 Lab Results Component Value Date CHOL 245 09/04/2010 LDL 142 09/04/2010 HDL 28 09/04/2010 TRI 406 09/04/2010 Lab Results Component Value Date [id number] 31 09/04/2010 Last CBC, CMP reviewed with [...]
--- OUTSIDE RECORDS SUMMARY | ~2019-08-31 | XMS | Encounter Summary ---
Demographics + + + | Address | [address] | | | [place] [address] | + + + | Home Phone [...] + + | Author | [facility] | + + + | Organization | [facility] | + + + | Address | Unknown | + + + | Phone | Unavailable | + + + Support + + +---------+ + | Name | Relationship | Address | Phone | + + +---------+ + | Skyler Todd | ECON | Unknown | | + + +---------+ + Care Team Providers + +------+ + | Care Fulfillment Associate Name | Role | Phone | + [...] | (vicodin) | | | | [facility] | [place], | | | | | Rd Mailcode: [id number] | [place] [address] | | | | | Physician's | [phone] | | | | | [place], | | | | | | [place] [address] | | | | | | [phone] | | | +--------+--------+ + + + [...]
--- OUTSIDE RECORDS SUMMARY | ~2019-08-31 | XMS | Encounter Summary ---
Demographics + + + | Address | [address] | | | [place] [address] | + + + | Home Phone [...] Author + + + | Author | [facility] | + + + | Organization | [facility] | + + + | Address | Unknown | + + + | Phone | Unavailable | + + + Support + + +---------+ + | Name | Relationship | Address | Phone | + + +---------+ + | Skyler Todd | ECON | Unknown | | + + +---------+ + Care Team Providers + +------+ + | Care Shellfish Dredge Operator Name | Role | Phone | + +------+ + | Jerome Young MD | PCP | | + +------+ + Encounter Details +--------+ + + + + | Date | Type | Department | Care Team | Description | +--------+ + + + + | 07/01/ | Machine Pecan Picker | Internal Medicine | Faustina Henao MD | | | 2010 | | Clinic at [facility] [address] | [address] | | | | | [facility] | [place], | | | | | Rd Mailcode: [id number] | [place] [address] | | | | | Physician's | [phone] | | | | | [place], | | | | | | [place] [address] | | | | | | [phone] | | | +--------+ + + + [...]
--- OUTSIDE RECORDS SUMMARY | ~2019-08-31 | XMS | Encounter Summary ---
Demographics + + + | Address | [address] | | | [place] [address] | + + + | Home Phone [...] Author + + + | Author | [facility] | + + + | Organization | [facility] | + + + | Address | Unknown | + + + | Phone | Unavailable | + + + Support + + +---------+ + | Name | Relationship | Address | Phone | + + +---------+ + | Skyler Todd | ECON | Unknown | | + + +---------+ + Care Team Providers + +------+ + | Care Ebay Reseller Name | Role | Phone | + [...] at [facility] [address] | [address] [facility] | | | | | [facility] | [address] [place], | | | | | Rd Mailcode: [id number] | [place] [address] | | | | | Physician's | [phone] | | | | | [place], | | | | | | [place] [address] | | | | | | [phone] | | | +--------+ + + + [...]
--- OUTSIDE RECORDS SUMMARY | ~2019-08-31 | XMS | Encounter Summary ---
Demographics + + + | Address | [address] | | | [place] [address] | + + + | Home Phone [...] + + + | Author | [facility] | + + + | Organization | [facility] | + + + | Address | Unknown | + + + | Phone | Unavailable | + + + Support + + +---------+ + | Name | Relationship | Address | Phone | + + +---------+ + | Skyler Todd | ECON | Unknown | | + + +---------+ + Care Team Providers + +------+ + | Care Cue Selector Name | Role | Phone | [...] [address] | | | | | [facility] | [place] [address] [place], | | | | | Rd Mailcode: [id number] | [place] [address] | | | | | Physician's | [phone] | | | | | [place], | | | | | | [place] [address] | | | | | | [phone] | | | +--------+--------+ + + + [...]
--- OUTSIDE RECORDS SUMMARY | ~2019-08-31 | XMS | Encounter Summary ---
Demographics + + + | Address | [address] | | | [place] [address] | + + + | Home Phone [...] Team Providers + +------+ + | Care Forklift Truck Mechanic Name | Role | Phone | + [...] immunodeficiency | | | | [facility] | [place], | virus infection); | | | | Rd Mailcode: [id number] | [place] [address] | Unspecified asthma; | | | | Physician's | [phone] | Hyperlipidemia LDL | | | | [facility] [place], | | goal < 100; Vitamin | | | | [place] [address] | | D deficiency; Hip | | | | [phone] | | pain, bilateral; | | | [...] was seen for initial evaluation in the [facility] HIV [facility] on 09/04/10. At [...] is nonproductive. He was referred to a certified optician who has not yet seen. He continues [...] gait. Labs: Lab Results Component Value Date [id number] 156* 09/04/2010 [id number] 9.0* 09/04/2010 HIVPCR 54 09/04/2010 Assessment and [...] JESSE | | | | | | Jaems PRITCHARD STATUS FINAL | | | | | | / Dr. JESSE PRITCHARD | | | | + + + + + + + + | Specimen | + + | | + + + +---------+ + + | Performing | Address | City/State/Zipcode | Phone Number | | Organization | | | | + +---------+ + + | [facility] DEPARTMENT OF | | | [...]
--- OUTSIDE RECORDS SUMMARY | 2019-08-31 03:48 | XMS ---
PreManage Notification: SLAVA AMES Security Swing Manager Events 1 event(s) in the past 18 months Most recent security events: Elopement at [facility] 04/21/2018 18:52 - Patient eloped before treatment completed. Details: Patient LWOB CRITERIA MET - Group Notification - [facility] - Has Care Guidelines CARE PROVIDERS There are no care providers on record at this time. [facility] has no Care Guidelines for this patient. Care History Medical/Surgical 01/11/2019 [facility] - PATIENT HAS AN APT ON 02/25/19 @ 9:00AM TO ESTABLISH CARE WITH DR ARANDA. - W AND PATIENT DISCUSSED THE [employer] [place] CLIENT EXPERIENCE CONSULTANT PROCESS. - PATIENT STATED HE MIGHT BE MOVING TO [facility] AND WILL MORE THAN LIKELY LOOK FOR AN EYE PHYSICIAN IN [place] UNTIL HE CAN SWITCH INSURANCE IF NEEDED. E.Kalyn. VISIT COUNT (12 MO.) 4 [facility]. TOTAL 4 NOTE: Visits indicate total known visits. ED/UCC VISIT TRACKING (12 MO.) 08/31/2019 03:46 CHELSEA Silva [place] TYPE: Emergency COMPLAINT: - SOB 01/08/2019 17:23 CHELSEA Silva [place] TYPE: Emergency COMPLAINT: - R EYE PAIN DIAGNOSES: - Acquired absence of other specified parts of digestive tract - Unspecified visual disturbance - Nicotine dependence, unspecified, uncomplicated - Sleep apnea, unspecified - Unspecified chorioretinal inflammation, right eye 01/01/2019 15:34 CHELSEA Silva [place] TYPE: Emergency COMPLAINT: - BLUR VISION/POSS EAR INFECTION DIAGNOSES: - Sleep apnea, unspecified - Other cytomegaloviral diseases - Anesthesia of skin - Unspecified chorioretinal inflammation, right eye - Chronic obstructive pulmonary disease, unspecified 01/01/2019 14:[address] [facility] [place] TYPE: Emergency COMPLAINT: - RIGHT EAR PAIN/RIGHT EYE PAIN DIAGNOSES: - Ocular pain, right eye - Otalgia, right ear INPATIENT VISIT TRACKING (12 MO.) No inpatient visits to display in this time frame [email or web address]
[2019-08-31] MEDS ORDERED: IPRAT-ALBUT 0.5-3 ML INH (05:05)
[2019-08-31] MEDS ORDERED: TRUNEB NEBULIZ1 EACH INH (05:06)
--- NOTE | 2019-08-31 16:31 | EKG ---
[facility] [address] [place] [address] Signed Sinus tachycardia Otherwise normal ECG No previous ECGs available Confirmed by KEMAL FIGUEROA DO ([id number]) on 08/31/2019 4:31:42 PM Electronically Signed By: KEMAL FIGUEROA DO 08/31/19 1631 PATIENT NAME: SLAVA AMES Electrocardiogram DATE OF : 67 PHYSICIAN: KEMAL FIGUEROA DO REPORT #: [id number] REPORT IS CONFIDENTIAL AND NOT TO BE RELEASED WITHOUT AUTHORIZATION
== END 2019-08-31 05:40 | disposition home or self-care (01) ==
LOC: ED 03:46
DX: J45.901 Unspecified asthma with (acute) exacerbation (principal); F17.200 Nicotine dependence, unspecified, uncomplicated
CPT/HCPCS: 71045; 80053; 83735; 84484; 85025; 93005; 93010; 94640; 99285-25

== ENCOUNTER 2019-10-28 01:48 | Emergency (ER) | payer OTHER ==
[~2019-10-28] VITALS: Ht 172.7 cm; Wt 93.4 kg
--- OUTSIDE RECORDS SUMMARY | ~2019-10-28 | XMS | Encounter Summary ---
Demographics + + + | Address | [address] | | | [place] [address] | + + + | Home Phone | | + + + | Preferred Language | Unknown | + + + | Marital Status | Single | + + + | Tenriism Affiliation | Unknown | + + + | Race | White | + + + | Ethnic Group | Not or | + + + Author + + + | Author | [facility] | + + + | Organization | [facility] | + + + | Address | Unknown | + + + | Phone | Unavailable | + + + Support + + +---------+ + | Name | Relationship | Address | Phone | + + +---------+ + | Skyler Todd | ECON | Unknown | | + + +---------+ + Care Team Providers + +------+ + | Care Family Mediator Name | Role | Phone | + +------+ + | Jerome Young MD | PCP | | + +------+ + Reason for Visit + + + | Reason | Comments | + + + | Refill Request | vicodin | + + + Encounter Details +--------+--------+ + + + | Date | Type | Department | Care Team | Description | +--------+--------+ + + + | 03/26/ | Refill | Internal Medicine | Faustina Henao MD | Refill Request | | 2010 | | Clinic at [facility] [address] | [address] | (vicodin) | | | | [facility] [place] | [facility], | | | | | Mailcode: [id number] | [place] [address] | | | | | Physician's Mak | [phone] | | | | | [place], [place] | | | | | | [address] | | | | | | [phone] | | | +--------+--------+ + + + Social History + + + +--------+------+ | Tobacco Use | Types | Packs/Day | Years | Date | | | | | Used | | + + + +--------+------+ | Current Every Day | Cigarettes | 1 | 26 | | | Smoker | | | | | + + + +--------+------+ + + +---------+ + | Alcohol Use | Drinks/Week | oz/Week | Comments | + + +---------+ + | No | | | | + + +---------+ + + + + | Sex Assigned at | Date Recorded | | | | + + + | Not on file | | + + + + + + + | Job Start Date | Occupation | Industry | + + + + | Not on file | Not on file | Not on file | + + + + + + + + | Travel History | Travel Start | Travel End | + + + + + + | No recent travel history available. | + + documented as of this encounter Plan of Treatment Not on filedocumented as of this encounter Visit Diagnoses Not on filedocumented in this encounter"
--- OUTSIDE RECORDS SUMMARY | ~2019-10-28 | XMS | Encounter Summary ---
Demographics + + + | Address | [address] | | | [place] [address] | + + + | Home Phone | | + + + | Preferred Language | Unknown | + + + | Marital Status | Single | + + + | Voodoo Affiliation | Unknown | + + + | Race | White | + + + | Ethnic Group | Not or | + + + Author + + + | Author | [facility] | + + + | Organization | [facility] | + + + | Address | Unknown | + + + | Phone | Unavailable | + + + Support + + +---------+ + | Name | Relationship | Address | Phone | + + +---------+ + | Skyler Todd | ECON | Unknown | | + + +---------+ + Care Team Providers + +------+ + | Care Cost Coordinator Name | Role | Phone | + +------+ + | Jerome Young MD | PCP | | + +------+ + Encounter Details +--------+------+ + + + | Date | Type | Department | Care Team | Description | +--------+------+ + + + | 01/20/ | Lab | Laboratory, | | HIV (human | | 2011 | | Specimen Collection | | immunodeficiency | | | | at [address] | | virus infection) | | | | [address] | | ([facility]) | | | | [address] [place], [place] | | | | | | [address] | | | | | | [phone] | | | +--------+------+ + + + Social History + + [...] | + +--------+ + + + | LDL | Routin | 01/21/2012 | | Results for this | | CHOLEST,PARISH-REFLEX | e | 12:27 PM | | procedure are in the | | | | PDT | | results section. | + +--------+ + + + | DIFFERENTIAL | Routin | 01/21/2012 | | Results for this | | | e | 12:27 PM | | procedure are in the | | | | PDT | | results section. | + +--------+ + + + | HIV QUANTITATIVE | Routin | 01/21/2012 | HIV (human | Results for this | | PCR, PLASMA | e | 12:27 PM | immunodeficiency | procedure are in the | | | | PDT | virus infection) | results section. | | | | | (HCC) | | + +--------+ + + + | CD4 (T CELL), BLOOD | Routin | 01/21/2012 | HIV (human | Results for this | | | e | 12:27 PM | immunodeficiency | procedure are in the | | | | PDT | virus infection) | results section. | | | | | (HCC) | | + +--------+ + + + | CBC, WITH | Routin | 01/21/2012 | HIV (human | Results for this | | DIFFERENTIAL | e | 12:27 PM | immunodeficiency | procedure are in the | | | | PDT | virus infection) | results section. | | | | | (HCC) | | + +--------+ + + + | VITAMIN D, | Routin | 01/21/2012 | HIV (human | Results for this | | 25-HYDROXY, SERUM | e | 12:27 PM | immunodeficiency | procedure are in the | | | | PDT | virus infection) | results section. | | | | | (HCC) | | + +--------+ + + + | COMPLETE METABOLIC | Routin | 01/21/2012 | HIV (human | Results for this | | SET | e | 12:27 PM | immunodeficiency | procedure are in the | | (NA,K,CL,CO2,BUN,CRE | | PDT | virus infection) | results section. | | AT,GLUC,CA,AST,ALT,B | | | (HCC) | | | TOÑITO TOTAL,ALK | | | | | | PHOS,ALB,PROT TOTAL) | | | | | + +--------+ + + + | RPR SERUM | Routin | 01/21/2012 | HIV (human | Results for this | | | e | 12:27 PM | immunodeficiency | procedure are in the | | | | PDT | virus infection) | results section. | | | | | (HCC) | | + +--------+ + + + | LIPID SET (TRIG, T | Routin | 01/21/2012 | HIV (human | Results for this | | CHOL, HDL, CALC LDL) | e | 12:27 PM | immunodeficiency | procedure are in the | | | | PDT | virus infection) | results section. | | | | | (HCC) | | + +--------+ + + + documented in this encounter Results LDL CHOLEST,PARISH-REFLEX (01/21/2012 12:27 PM PDT) + +-------+ + + + | Component | Value | Ref Range | Performed | Pathologist | | | | | At | Signature | + +-------+ + + + | LDL CHOLEST | 90 | <100 mg/dL | [facility] | | | | | | DEPARTMENT | | | | | | OF | | | | | | PATHOLOGY | | + +-------+ + + + + + | Specimen | + + | | + + + + + + + | Performing | Address | City/State/Zipcode | Phone Number | | Organization | | | | + + + + + | [facility] | [address] | [place] [address] | | | PATHOLOGY | [address] | | | + + + + + DIFFERENTIAL (01/21/2012 12:27 PM PDT) + +-------+ + + + | Component | Value | Ref Range | Performed | Pathologist | | | | | At | Signature | + +-------+ + + + | NEUTROPHIL | 56 | 50 - 70 % | [facility] | | | % | | | DEPARTMENT | | | | | | OF | | | | | | PATHOLOGY | | + +-------+ + + + | LYMPHOCYTE | 34 | 18 - 42 % | [facility] | | | % | | | DEPARTMENT | | | | | | OF | | | | | | PATHOLOGY | | + +-------+ + + + | MONOCYTE % | 7 | 2 - 8 % | [facility] | | | | | | DEPARTMENT | | | | | | OF | | | | | | PATHOLOGY | | + +-------+ + + + | EOS % | 3 | 1 - 3 % | [facility] | | | | | | DEPARTMENT | | | | | | OF | | | | | | PATHOLOGY | | + +-------+ + + + | BASO % | 1 | <3 % | [facility] | | | | | | DEPARTMENT | | | | | | OF | | | | | | PATHOLOGY | | + +-------+ + + + | NEUTROPHIL | 5.0 | 1.8 - 7.7 K/cu | [facility] | | | # | | mm | DEPARTMENT | | | | | | OF | | | | | | PATHOLOGY | | + +-------+ + + + | LYMPHOCYTE | 3.0 | 1.0 - 4.8 K/cu | [facility] | | | # | | mm | DEPARTMENT | | | | | | OF | | | | | | PATHOLOGY | | + +-------+ + + + | MONOCYTE # | 0.6 | <0.9 K/cu mm | [facility] | | | | | | DEPARTMENT | | | | | | OF | | | | | | PATHOLOGY | | + +-------+ + + + | EOS # | 0.3 | <0.6 K/cu mm | [facility] | | | | | | DEPARTMENT | | | | | | OF | | | | | | PATHOLOGY | | + +-------+ + + + | BASO # | 0.1 | <0.2 | [facility] | | | | | | DEPARTMENT | | | | | | OF | | | | | | PATHOLOGY | | + +-------+ + + + + + | Specimen | + + | | + + + + + + + | Performing | Address | City/State/Zipcode | Phone Number | | Organization | | | | + + + + + | [facility] | [address] | [place] [address] | | | PATHOLOGY | [address] | | | + + + + + RPR SERUM (01/21/2012 12:27 PM PDT) + + + + + + | Component | Value | Ref Range | Performed | Pathologist | | | | | At | Signature | + + + + + + | RPR SRM | Non-Reactive | | [facility] | | | QUAL | | | REGIONAL | | | | | | LABORATORY | | + + + + + + + + | Specimen | + + | Blood - Blood | + + + + + | Narrative | Performed At | + + + | [facility] | [facility] | | [place] [address] | REGIONAL | | [place] [address] | LABORATORY | + + + + + + + + | Performing | Address | City/State/Zipcode | Phone Number | | Organization | | | | + + + + + | [facility] | [address] | [place] [address] | | | LABORATORY | | | | + + + + + CD4 (T CELL), BLOOD (01/21/2012 12:27 PM PDT) + + + + + + | Component | Value | Ref Range | Performed | Pathologist | | | | | At | Signature | + + + + + + | CD4 (T | 356 (L) | 500 - 2000 /cu | [facility] | | | HELPER | | mm | DEPARTMENT | | | CELLS) | | | OF | | | | | | PATHOLOGY | | + + + + + + | CD4 % (T | 11.8 (L) | 30.0 - 53.0 % | [facility] | | | HELPER | | | DEPARTMENT | | | CELLS) | | | OF | | | | | | PATHOLOGY | | + + + + + + + + | Specimen | + + | Blood - Blood | + + + + + | Narrative | Performed At | + + + | CD4 (T Cell), whole blood | [facility] | | | DEPARTMENT OF | | | PATHOLOGY | + + + + + + + + | Performing | Address | City/State/Zipcode | Phone Number | | Organization | | | | + + + + + | [facility]MENT [facility] | [address] | [place] [address] | | | PATHOLOGY | [address] | | | + + + + + HIV QUANTITATIVE PCR, PLASMA (01/21/2012 12:27 PM PDT) + + + + + + | Component | Value | Ref Range | Performed | Pathologist | | | | | At | Signature | + + + + + + | HIV-QNT PCR | 98 | copies/mL | [facility] | | | | | | DIAGNOSTIC | | | | | | | | | | | | LABORATORIE | | | | | | S | | + + + + + + | HIV QUANT | Plasma | | [facility] | | | SPECIMEN | | | DIAGNOSTIC | | | TYPE | | | | | | | | | LABORATORIE | | | | | | S | | + + + + + + | HIV QUANT | Reportable Range: | | [facility] | | | INTERPRETAT | 48-10,000,000 HIV-1 | | DIAGNOSTIC | | | ION | copies/mL. Positive | | | | | | results are consistent | | LABORATORIE | | | | with active HIV | | S | | | | infection. High | | | | | | orserially rising HIV | | | | | | viral loads are a poor | | | | | | prognostic indicator | | | | | | forantiviral therapy | | | | | | efficacy and predict a | | | | | | more rapid HIV | | | | | | diseaseprogression. | | | | | | Viral load changes of | | | | | | less than approximately | | | | | | 3 fold maynot be | | | | | | biologically significant | | | | | | and must be interpreted | | | | | | cautiously. | | | | + + + + + + + + | Specimen | + + | Blood - Blood | + + + + + + + | Performing | Address | City/State/Zipcode | Phone Number | | Organization | | | | + + + + + | [facility] | [address] | [place] [address] | | | DIAGNOSTIC | [address] | | | | LABORATORIES | | | | + + + + + COMPLETE METABOLIC SET (NA,K,CL,CO2,BUN,CREAT,GLUC,CA,AST,ALT,BILI TOTAL,ALK PHOS,ALB,PROT TOTAL) (01/21/2012 12:27 PM PDT) + + + + + + | Component | Value | Ref Range | Performed | Pathologist | | | | | At | Signature | + + + + + + | GLUCOSE, | 103 (H) | 60 - 99 mg/dL | [facility] | | | PLASMA | | | DEPARTMENT | | | (LAB) | | | OF | | | | | | PATHOLOGY | | + + + + + + | BUN, PLASMA | 15 | 6 - 20 mg/dL | [facility] | | | (LAB) | | | DEPARTMENT | | | | | | OF | | | | | | PATHOLOGY | | + + + + + + | CREATININE | 1.07 | 0.70 - 1.30 | [facility] | | | PLASMA | | mg/dL | DEPARTMENT | | | (LAB) | | | OF | | | | | | PATHOLOGY | | + + + + + + | TOTAL | 7.6 | 6.1 - 7.9 g/dL | [facility] | | | PROTEIN, | | | DEPARTMENT | | | PLASMA | | | OF | | | (LAB) | | | PATHOLOGY | | + + + + + + | ALBUMIN, | 4.1 | 3.5 - 4.7 g/dL | [facility] | | | PLASMA | | | DEPARTMENT | | | (LAB) | | | OF | | | | | | PATHOLOGY | | + + + + + + | CALCIUM, | 8.8 | 8.6 - 10.2 | [facility] | | | PLASMA | | mg/dL | DEPARTMENT | | | (LAB) | | | OF | | | | | | PATHOLOGY | | + + + + + + | BILIRUBIN | 0.3 | 0.3 - 1.2 mg/dL | [facility] | | | TOTAL | | | DEPARTMENT | | | | | | OF | | | | | | PATHOLOGY | | + + + + + + | ALK PHOS | 85 | 53 - 128 U/L | [facility] | | | | | | DEPARTMENT | | | | | | OF | | | | | | PATHOLOGY | | + + + + + + | AST(SGOT) | 18 | 15 - 41 U/L | [facility] | | | | | | DEPARTMENT | | | | | | OF | | | | | | PATHOLOGY | | + + + + + + | SODIUM, | 140 | 134 - 143 | [facility] | | | PLASMA | | mmol/L | DEPARTMENT | | | (LAB) | | | OF | | | | | | PATHOLOGY | | + + + + + + | POTASSIUM, | 4.1 | 3.4 - 5.0 | [facility] | | | PLASMA | | mmol/L | DEPARTMENT | | | (LAB) | | | OF | | | | | | PATHOLOGY | | + + + + + + | CHLORIDE, | 104 | 97 - 108 mmol/L | [facility] | | | PLASMA | | | DEPARTMENT | | | (LAB) | | | OF | | | | | | PATHOLOGY | | + + + + + + | TOTAL CO2, | 29 | 22 - 29 mmol/L | [facility] | | | PLASMA | | | DEPARTMENT | | | (LAB) | | | OF | | | | | | PATHOLOGY | | + + + + + + | ALT (SGPT) | 14 | 13 - 48 U/L | [facility] | | | | | | DEPARTMENT | | | | | | OF | | | | | | PATHOLOGY | | + + + + + + | EGFR | > 60 | >60 mL/min | [facility] | | | - | | | DEPARTMENT | | | [place] | | | OF | | | | | | PATHOLOGY | | + + + + + + | EGFR NON | > 60Comment: GFR is | >60 mL/min | [facility] | | | -CRISTELA | estimated using the MDRD | | DEPARTMENT | | | RICAN | equation recommended by | | OF | | | | theNational Kidney | | PATHOLOGY | | | | Disease Education | | | | | | Program. Estimated GFR | | | | | | Interpretive | | | | | | Information: <60 | | | | | | mL/min/1.73 sq m | | | | | | Chronic Kidney Disease | | | | | | <15 mL/min/1.73 sq m | | | | | | Kidney Failure | | | | | | Estimated GFR greater | | | | | | than 60mL/min/1.73 is of | | | | | | limited clinical Value. | | | | | | The MDRD equation is | | | | | | not valid in the | | | | | | following situations: - | | | | | | Patients under 18 years | | | | | | of age - Severe | | | | | | malnutrition or obesity | | | | | | - Vegetarian diet - | | | | | | Rapidly changing kidney | | | | | | function | | | | + + + + + + | ANION GAP | 7 | 4 - 11 mmol/L | [facility] | | | | | | DEPARTMENT | | | | | | OF | | | | | | PATHOLOGY | | + + + + + + | ANION | 6 | 4 - 11 mmol/L | [facility] | | | GAP(ALB | | | DEPARTMENT | | | CORRECTED) | | | OF | | | | | | PATHOLOGY | | + + + + + + + + | Specimen | + + | Blood - Blood | + + + + + + + | Performing | Address | City/State/Zipcode | Phone Number | | Organization | | | | + + + + + | [facility] | [address] | [place] [address] | | | PATHOLOGY | [address] | | | + + + + + CBC, WITH DIFFERENTIAL (01/21/2012 12:27 PM PDT) + +-------+ + + + | Component | Value | Ref Range | Performed | Pathologist | | | | | At | Signature | + +-------+ + + + | WHITE CELL | 8.9 | 4.4 - 11.0 K/cu | [facility] | | | COUNT | | mm | DEPARTMENT | | | | | | OF | | | | | | PATHOLOGY | | + +-------+ + + + | RED CELL | 4.67 | 4.50 - 5.90 | [facility] | | | COUNT | | M/cu mm | DEPARTMENT | | | | | | OF | | | | | | PATHOLOGY | | + +-------+ + + + | HEMOGLOBIN | 14.5 | 13.5 - 17.5 | [facility] | | | | | g/dL | DEPARTMENT | | | | | | OF | | | | | | PATHOLOGY | | + +-------+ + + + | HEMATOCRIT | 42.3 | 41.0 - 53.0 % | [facility] | | | | | | DEPARTMENT | | | | | | OF | | | | | | PATHOLOGY | | + +-------+ + + + | MCV | 90.5 | 80.0 - 96.0 fL | [facility] | | | | | | DEPARTMENT | | | | | | OF | | | | | | PATHOLOGY | | + +-------+ + + + | MCHC | 34.3 | 33.4 - 35.5 | [facility] | | | | | g/dL | DEPARTMENT | | | | | | OF | | | | | | PATHOLOGY | | + +-------+ + + + | RDW | 13.9 | 11.5 - 15.0 % | [facility] | | | | | | DEPARTMENT | | | | | | OF | | | | | | PATHOLOGY | | + +-------+ + + + | PLATELET | 285 | 150 - 400 K/cu | [facility] | | | COUNT | | mm | DEPARTMENT | | | | | | OF | | | | | | PATHOLOGY | | + +-------+ + + + + + | Specimen | + + | Blood - Blood | + + + + + + + | Performing | Address | City/State/Zipcode | Phone Number | | Organization | | | | + + + + + | [facility] | [address] | [place] [address] | | | PATHOLOGY | [address] | | | + + + + + LIPID SET (TRIG, T CHOL, HDL, CALC LDL) (01/21/2012 12:27 PM PDT) + + + + + + | Component | Value | Ref Range | Performed | Pathologist | | | | | At | Signature | + + + + + + | CHOLESTEROL | 157Comment: | <200 mg/dL | [facility] | | | (LAB) | Cholesterol Reference | | DEPARTMENT | | | | Range: | | OF | | | | Desirable: <200 | | PATHOLOGY | | | | Borderline | | | | | | High: 200 - 239 | | | | | | | | | | | | High: >=240 | | | | | | LDL Cholesterol | | | | | | Reference Range: | | | | | | | | | | | | Optimal: <100 | | | | | | Near Optimal: | | | | | | 100 - 129 | | | | | | Borderline High: | | | | | | 130 - 159 | | | | | | High: | | | | | | 160 - 189 | | | | | | Very High: | | | | | | >=190 | | | | + + + + + + | TRIGLYCERID | 339 (H)Comment: | <150 mg/dL | [facility] | | | ES | Triglyceride | | DEPARTMENT | | | | Reference Range: | | OF | | | | | | PATHOLOGY | | | | Normal: <150 | | | | | | Borderline High: | | | | | | 150 - 199 | | | | | | | | | | | | High: 200 - 499 | | | | | | | | | | | | Very High: >=500 | | | | + + + + + + | HDL | 27 (L)Comment: | >40 mg/dL | [facility] | | | CHOLESTEROL | HDL Reference Range: | | DEPARTMENT | | | | High | | OF | | | | Risk: <40 | | PATHOLOGY | | | | Desirable: | | | | | | >=60 | | | | + + + + + + | NON-HDL | 130 (H)Comment: non-HDL | <130 mg/dL | [facility] | | | CHOLESTEROL | Cholesterol Reference | | DEPARTMENT | | | | Range: | | OF | | | | Optimal: <130 | | PATHOLOGY | | | | Near | | | | | | Optimal: 130-159 | | | | | | Borderline | | | | | | High: 160-189 | | | | | | | | | | | | High: 190-209 | | | | | | Very | | | | | | High: >=210 | | | | + + + + + + | VLDL | 40 (H) | <31 mg/dL | [facility] | | | CHOLESTEROL | | | DEPARTMENT | | | , | | | OF | | | CALCULATED | | | PATHOLOGY | | + + + + + + + + | Specimen | + + | Blood - Blood | + + + + + + + | Performing | Address | City/State/Zipcode | Phone Number | | Organization | | | | + + + + + | [facility] | [address] | [place] [address] | | | PATHOLOGY | [address] | | | + + + + + VITAMIN D, 25-HYDROXY, SERUM (01/21/2012 12:27 PM PDT) + + + + + + | Component | Value | Ref Range | Performed | Pathologist | | | | | At | Signature | + + + + + + | VITAMIN D | 26 (L)Comment: | 30 - 80 ng/mL | [facility] | | | 25 HYDROXY | REFERENCE INTERVAL: | | DEPARTMENT | | | | Vitamin D, 25-Hydroxy | | OF | | | | 0-17 years: | | PATHOLOGY | | | | Deficiency: less than 20 | | | | | | ng/mL Optimum | | | | | | level: greater than or | | | | | | equal to 20 ng/mL* | | | | | | *(Carbajal CL et al. | | | | | | Pediatrics 2008; 122: | | | | | | 1128-38.) 18 | | | | | | years and older: | | | | | | Deficiency: less than 20 | | | | | | ng/mL | | | | | | Insufficiency: 20-29 | | | | | | ng/mL Optimum | | | | | | level: 30-80 ng/mL | | | | | | Possible toxicity: | | | | | | greater than 150 ng/mL | | | | | | This assay | | | | | | accurately quantifies | | | | | | the sum of vitamin D3, | | | | | | 25-hydroxy and | | | | | | vitamin D2, 25-hydroxy. | | | | | | Testing performed | | | | | | in [facility] & | | | | | | Coagulation | | | | | | Department as of January | | | | | | 2010. | | | | + + + + + + + + | Specimen | + + | Blood - Blood | + + + + + + + | Performing | Address | City/State/Zipcode | Phone Number | | Organization | | | | + + + + + | [facility] | [address] | [place] [address] | | | PATHOLOGY | [address] | | | + + + + + documented in this encounter Visit Diagnoses + + | Diagnosis | + + | HIV (human immunodeficiency virus infection) (HCC) Asymptomatic human | | immunodeficiency virus (HIV) infection status | + + documented in this encounter"
--- OUTSIDE RECORDS SUMMARY | ~2019-10-28 | XMS | Encounter Summary ---
Demographics + + + | Address | [address] | | | [place] [address] | + + + | Home Phone | | + + + | Preferred Language | Unknown | + + + | Marital Status | Single | + + + | Mu-Ism Affiliation | Unknown | + + + | Race | White | + + + | Ethnic Group | Not or | + + + Author + + + | Author | [facility] | + + + | Organization | [facility] | + + + | Address | Unknown | + + + | Phone | Unavailable | + + + Support + + +---------+ + | Name | Relationship | Address | Phone | + + +---------+ + | Skyler Todd | ECON | Unknown | | + + +---------+ + Care Team Providers + +------+ + | Care Retort Setter Name | Role | Phone | + +------+ + | Jerome Young MD | PCP | | + +------+ + Reason for Visit + + + | Reason | Comments | + + + | Lab Draw | | + + + Encounter Details +--------+ + + + + | Date | Type | Department | Care Team | Description | +--------+ + + + + | 01/10/ | Telephone | [facility] | Faustina Henao MD | Lab Draw | | 2010 | | at [facility] | [address] | | | | | [address] | [place] | | | | | Loop Mailcode: | [place] [address] | | | | | [address] [facility] | [phone] | | | | | [place], | | | | | | [place] [address] | | | | | | [phone] | | | +--------+ + + + [...]
--- OUTSIDE RECORDS SUMMARY | ~2019-10-28 | XMS | Encounter Summary ---
Demographics + + + | Address | [address] | | | [place] [address] | + + + | Home Phone | | + + + | Preferred Language | Unknown | + + + | Marital Status | Single | + + + | Yarsanism Affiliation | Unknown | + + + | Race | White | + + + | Ethnic Group | Not or | + + + Author + + + | Author | [facility] | + + + | Organization | [facility] | + + + | Address | Unknown | + + + | Phone | Unavailable | + + + Support + + +---------+ + | Name | Relationship | Address | Phone | + + +---------+ + | Skyler Todd | ECON | Unknown | | + + +---------+ + Care Team Providers + +------+ + | Care Robot Operator Name | Role | Phone | + +------+ + | Jerome Young MD | PCP | | + +------+ + Reason for Visit + + + | Reason | Comments | + + + | Appointment | adarsh pt-appointment | + + + Encounter Details +--------+ + + + + | Date | Type | Department | Care Team | Description | +--------+ + + + + | 12/12/ | Telephone | Internal Medicine | Faustina Henao MD | Appointment (adarsh | | 2011 | | [facility] | [address] | pt-appointment) | | | | [address] | [place], | | | | | Mailcode: [id number] | [place] [address] | | | | | [facility] | [phone] | | | | | [place], [place] | | | | | | [address] | | | | | | [phone] | | | +--------+ + + + [...]
--- OUTSIDE RECORDS SUMMARY | ~2019-10-28 | XMS | Encounter Summary ---
Demographics + + + | Address | [address] | | | [place] [address] | + + + | Home Phone | | + + + | Preferred Language | Unknown | + + + | Marital Status | Single | + + + | Bahai Affiliation | Unknown | + + + | Race | White | + + + | Ethnic Group | Not or | + + + Author + + + | Author | [facility] | + + + | Organization | [facility] | + + + | Address | Unknown | + + + | Phone | Unavailable | + + + Support + + +---------+ + | Name | Relationship | Address | Phone | + + +---------+ + | Skyler Todd | ECON | Unknown | | + + +---------+ + Care Team Providers + +------+ + | Care Interpreter Name | Role | Phone | + [...] | | | | immunodefici | [address] | [address] [facility] | | | | | ency virus | [place]. | Eben Valles | | | | | (HIV) | [address], | [place], | | | | | disease | [place] [address] | [place] | | | | | (HCC) | Phone: | [address] | | | | | | [phone] | Phone: | | | | | | Fax: | [phone] | | | | | | [phone] | Fax: | | | | | | | [phone] | +--------+--------+ + + + + Encounter [...] virus infection) | | | | Mailcode: [id number] | [place] [address] | ([facility]); | | | | [facility] | [phone] | Hyperlipidemia LDL | | | | [place], [place] | | goal < 100; Anxiety | | | | [address] | | state, unspecified | | | | [phone] | | | +--------+---------+ + + + [...] was last seen for f/u in the [facility] on 02/12/2011. Since the [...] was negative. Establishing with new PCP at [facility]. Pavan is otherwise stable. He denies fevers, [...] gait. Labs: Lab Results Component Value Date [id number] 321 08/27/2011 [id number] 10 08/27/2011 HIVPCR <48 01/11/2011 Lab Results Component Value Date RPR Non-Reactive 09/04/2010 Lab Results Component Value Date CHOL 173 01/10/2011 LDL 95 01/10/2011 HDL 41 01/10/2011 TRI 185 01/10/2011 Lab Results Component Value Date [id number] 31 09/04/2010 Last CBC, CMP reviewed with [...] | RPR SRM | Non-Reactive | | [facility] | | | QUAL | | | REGIONAL | | | | | | LABORATORY | | + + + + + + + + | Specimen | + + | Blood - Blood | + + + + + | Narrative | Performed At | + + + | [facility] | [facility] | | [facility] [address] | REGIONAL | | [place] [address] | LABORATORY | + + + + + + + + | Performing | Address | City/State/Zipcode | Phone Number | | Organization | | | | + + + + + | [facility] | [address] | [place] [address] | | | LABORATORY | | | [...] DEPARTMENT OF | [address] | [place] [address] | | | PATHOLOGY | [address] [...] | + + + + + | [facility] | [address] | [place] [address] | | | DIAGNOSTIC | [address] [...] | | | DEPARTMENT | | | [place] | | | OF | | | [...] | + + + + + | [facility] | [address] | [place] [address] | | | PATHOLOGY | [address] [...] | + + + + + | [facility] DEPART[facility] | [address] | [place] [address] | | | PATHOLOGY | [address] [...] | + + + + + | [facility] | [address] | [place] [address] | | | PATHOLOGY | [address] [...] ng/mL* | | | | | | *(Solomon CL et al. | | | | [...] | + + + + + | [facility] | [address] | [place] [address] | | | PATHOLOGY | [address] [...]
--- OUTSIDE RECORDS SUMMARY | ~2019-10-28 | XMS | Encounter Summary ---
Demographics + + + | Address | [address] | | | [place] [address] | + + + | Home Phone | | + + + | Preferred Language | Unknown | + + + | Marital Status | Single | + + + | Buddhism Affiliation | Unknown | + + + | Race | White | + + + | Ethnic Group | Not or | + + + Author + + + | Author | [facility] | + + + | Organization | [facility] | + + + | Address | Unknown | + + + | Phone | Unavailable | + + + Support + + +---------+ + | Name | Relationship | Address | Phone | + + +---------+ + | Skyler Todd | ECON | Unknown | | + + +---------+ + Care Team Providers + +------+ + | Care Hvac Technician Residential Name | Role | Phone | + +------+ + | Faustina Henao MD | PCP | | + +------+ + Encounter Details +--------+------+ + + + | Date | Type | Department | Care Team | Description | +--------+------+ + + + | 09/04/ | Lab | Laboratory, | | HIV (human | | 2009 | | Specimen Collection | | immunodeficiency | | | | at [facility] 3rd Floor | | virus infection) | | | | [address] | | ([facility]) | | | | [address] [place], [place] | | | | | | [address] | | | | | | [phone] | | | +--------+------+ + + + [...] + + | LDL | Routin | 09/04/2010 | | Results for this | | CHOLEST,PARISH-REFLEX | e | 12:09 PM | | procedure are in the | | | | PDT | | results section. | + +--------+ + + + | DIFFERENTIAL | Routin | 09/04/2010 | | Results for this | | | e | 12:09 PM | | procedure are in the | | | | PDT | | results section. | + +--------+ + + + | HIV QUANTITATIVE | Routin | 09/04/2010 | HIV (human | Results for this | | PCR, PLASMA | e | 12:09 PM | immunodeficiency | procedure are in the | | | | PDT | virus infection) | results section. | | | | | (HCC) | | + +--------+ + + + | CD4 (T CELL), BLOOD | Routin | 09/04/2010 | HIV (human | Results for this | | | e | 12:09 PM | immunodeficiency | procedure are in the | | | | PDT | virus infection) | results section. | | | | | (HCC) | | + +--------+ + + + | CBC, WITH | Routin | 09/04/2010 | HIV (human | Results for this | | DIFFERENTIAL | e | 12:09 PM | immunodeficiency | procedure are in the | | | | PDT | virus infection) | results section. | | | | | (HCC) | | + +--------+ + + + | VITAMIN D, | Routin | 09/04/2010 | HIV (human | Results for this | | 25-HYDROXY, SERUM | e | 12:09 PM | immunodeficiency | procedure are in the | | | | PDT | virus infection) | results section. | | | | | (HCC) | | + +--------+ + + + | COMPLETE METABOLIC | Routin | 09/04/2010 | HIV (human | Results for this | | SET | e | 12:09 PM | immunodeficiency | procedure are in the | | (NA,K,CL,CO2,BUN,CRE | | PDT | virus infection) | results section. | | AT,GLUC,CA,AST,ALT,B | | | (HCC) | | | TOÑITO TOTAL,ALK | | | | | | PHOS,ALB,PROT TOTAL) | | | | | + +--------+ + + + | RPR SERUM | Routin | 09/04/2010 | HIV (human | Results for this | | | e | 12:09 PM | immunodeficiency | procedure are in the | | | | PDT | virus infection) | results section. | | | | | (HCC) | | + +--------+ + + + | HEPATITIS B SURFACE | Routin | 09/04/2010 | HIV (human | Results for this | | AB QUAL, SERUM | e | 12:09 PM | immunodeficiency | procedure are in the | | | | PDT | virus infection) | results section. | | | | | (HCC) | | + +--------+ + + + | HEPATITIS B SURFACE | Routin | 09/04/2010 | HIV (human | Results for this | | AG, SERUM | e | 12:09 PM | immunodeficiency | procedure are in the | | | | PDT | virus infection) | results section. | | | | | (HCC) | | + +--------+ + + + | HEPATITIS A AB | Routin | 09/04/2010 | HIV (human | Results for this | | SCREEN, SERUM | e | 12:09 PM | immunodeficiency | procedure are in the | | | | PDT | virus infection) | results section. | | | | | (HCC) | | + +--------+ + + + | HEPATITIS C VIRUS | Routin | 09/04/2010 | HIV (human | Results for this | | W/CONFIRMATION | e | 12:09 PM | immunodeficiency | procedure are in the | | | | PDT | virus infection) | results section. | | | | | (HCC) | | + +--------+ + + + | LIPID SET (TRIG, T | Routin | 09/04/2010 | HIV (human | Results for this | | CHOL, HDL, CALC LDL) | e | 12:09 PM | immunodeficiency | procedure are in the | | | | PDT | virus infection) | results section. | | | | | (HCC) | | + +--------+ + + + documented in this encounter Results LDL CHOLEST,PARISH-REFLEX (09/04/2010 12:09 PM PDT) + +---------+ + + + | Component | Value | Ref Range | Performed | Pathologist | | | | | At | Signature | + +---------+ + + + | LDL CHOLEST | 142 (H) | <100 mg/dL | [facility] | | | | | | DEPARTMENT | | | | | | OF | | | | | | PATHOLOGY | | + +---------+ + + + + + | Specimen | + + | | + + + + + + + | Performing | Address | City/State/Zipcode | Phone Number | | Organization | | | | + + + + + | [facility] DEPARTMENT | [address] | [place] [address] | | | PATHOLOGY | [address] | | | + + + + + DIFFERENTIAL (09/04/2010 12:09 PM PDT) + +-------+ + + + | Component | Value | Ref Range | Performed | Pathologist | | | | | At | Signature | + +-------+ + + + | NEUTROPHIL | 62 | 50 - 70 % | [facility] | | | % | | | DEPARTMENT | | | | | | OF | | | | | | PATHOLOGY | | + +-------+ + + + | LYMPHOCYTE | 27 | 18 - 42 % | [facility] [...] +-------+ + + + | NEUTROPHIL | 4.1 | 1.8 - 7.7 K/cu | [facility] | | | # | | mm | DEPARTMENT | | | | | | OF | | | | | | PATHOLOGY | | + +-------+ + + + | LYMPHOCYTE | 1.8 | 1.0 - 4.8 K/cu | [facility] | | | # | | mm | DEPARTMENT | | | | | | OF | | | | | | PATHOLOGY | | + +-------+ + + + | MONOCYTE # | 0.5 | <0.9 K/cu mm | [facility] | | | | | | DEPARTMENT | | | | | | OF | | | | | | PATHOLOGY | | + +-------+ + + + | EOS # | 0.2 | <0.6 K/cu mm | [facility] | [...] | + + + + + | [facility] | [address] | [place] [address] | | | PATHOLOGY | [address] | | | + + + + + HEPATITIS C AB, SERUM (09/04/2010 12:09 PM PDT) + + + + + + | Component | Value | Ref Range | Performed | Pathologist | | | | | At | Signature | + + + + + + | HEPATITIS C | Negative | Negative | [facility] | | | AB | | | REGIONAL | | | | | | LABORATORY | | + + + + + + + + | Specimen | + + | Blood - Blood | + + + + + | Narrative | Performed At | + + + | [facility] | [facility] | | [place] [address] [facility] | REGIONAL | | [place] [address] | LABORATORY | + + + + + + + + | Performing | Address | City/State/Zipcode | Phone Number | | Organization | | | | + + + + + | [facility] | [address] | [place] [address] | | | LABORATORY | | | | + + + + + HEPATITIS B SURFACE AG, SERUM (09/04/2010 12:09 PM PDT) + + + + + + | Component | Value | Ref Range | Performed | Pathologist | | | | | At | Signature | + + + + + + | HEPATITIS B | Negative | Negative | [facility] | | | SURFACE | | | REGIONAL | | | AG, SERUM | | | LABORATORY | | + + + + + + + + | Specimen | + + | Blood - Blood | + + + + + | Narrative | Performed At | + + + | [facility] | [facility] | | [place] [address] | REGIONAL | | [place] [address] | LABORATORY | + + + + + + + + | Performing | Address | City/State/Zipcode | Phone Number | | Organization | | | | + + + + + | [facility] | [address] | [place] [address] | | | LABORATORY | | | | + + + + + HEPATITIS B SURFACE AB QUAL, SERUM (09/04/2010 12:09 PM PDT) + + + + + + | Component | Value | Ref Range | Performed | Pathologist | | | | | At | Signature | + + + + + + | HEP B | POSITIVE (A) | Negative | [facility] | | | SURFACE AB | | | REGIONAL | | | QUAL, SERUM | | | LABORATORY | | + + + + + + + + | Specimen | + + | Blood - Blood | + + + + + | Narrative | Performed At | + + + | [facility] | [facility] | | [place] [address] | REGIONAL | | [place] [address] | LABORATORY | + + + + + + + + | Performing | Address | City/State/Zipcode | Phone Number | | Organization | | | | + + + + + | [facility] | [address] | [place] [address] | | | LABORATORY | | | | + + + + + HEPATITIS A AB SCREEN, SERUM (09/04/2010 12:09 PM PDT) + + + + + + | Component | Value | Ref Range | Performed | Pathologist | | | | | At | Signature | + + + + + + | HEPATITIS A | Negative | Negative | [facility] | | | AB TOTAL | | | REGIONAL | | | | | | LABORATORY | | + + + + + + + + | Specimen | + + | Blood - Blood | + + + + + | Narrative | Performed At | + + + | [facility] | [facility] | | [place] [address] | REGIONAL | | [place] [address] | LABORATORY | + + + + + + + + | Performing | Address | City/State/Zipcode | Phone Number | | Organization | | | | + + + + + | [facility] | [address] | [place] [address] | | | LABORATORY | | | | + + + + + LIPID SET (TRIG, T CHOL, HDL, CALC LDL) (09/04/2010 12:09 PM PDT) + + + + + + | Component | Value | Ref Range | Performed | Pathologist | | | | | At | Signature | + + + + + + | CHOLESTEROL | 245 (H)Comment: | <200 mg/dL | [facility] | | [...] + + + + | TRIGLYCERID | 406 (H)Comment: | <150 mg/dL | [facility] | [...] + + + + | HDL | 28 (L)Comment: | >40 mg/dL | [facility] | | | CHOLESTEROL | HDL Reference Range: | | DEPARTMENT | | | | High | | OF | | | | Risk: <40 | | PATHOLOGY | | | | Desirable: | | | | | | >=60 | | | | + + + + + + | NON-HDL | 217 (H)Comment: non-HDL | <130 mg/dL | [facility] [...] + + + + | VLDL | 75 (H) | <31 mg/dL | [facility] | [...] | + + + + + | [facility] DEPARTMENT OF | [address] | [place] [address] | | | PATHOLOGY | [address] | | | + + + + + VITAMIN D, 25-HYDROXY, SERUM (09/04/2010 12:09 PM PDT) + + + + + + | Component | Value | Ref Range | Performed | Pathologist | | | | | At | Signature | + + + + + + | VITAMIN D | 31Comment: REFERENCE | 30 - 80 ng/mL | | | | 25 HYDROXY | INTERVAL: Vitamin D, | | | | | | 25-Hydroxy This assay | | | | | | accurately quantifies | | | | | | the sum of vitamin | | | | | | D3,25-hydroxy and | | | | | | vitamin D2, 25-hydroxy. | | | | | | 0-17 years:Deficiency: | | | | | | less than 20 | | | | | | ng/mLOptimum level: | | | | | | greater than or equal to | | | | | | 20 ng/mL(Solomon CL et | | | | | | al. Pediatrics 2008; | | | | | | 122: 1128-38.) 18 years | | | | | | and older:Deficiency: | | | | | | Less than 20 | | | | | | ng/mLInsufficiency: | | | | | | 20-29 ng/mLOptimum | | | | | | Level: 30-80 | | | | | | ng/mLPossible Toxicity: | | | | | | Greater than 150 | | | | | | ng/mLPerformed by [facility] | | | | | | [facility], | | | | | | | | | | | | [address], | | | | | | [place] [address] | | | | | | [phone] | | | | | | | | | | | | www.[employer], | | | | | | Loyda Deluca MD - | | | | | | Lab. Director | | | | + + + + + + + + | Specimen | + + | Blood - Blood | + + + + + + + | Performing | Address | City/State/Zipcode | Phone Number | | Organization | | | | + + + + + | [facility] | [address] | [place], [place] | | | [facility] | | [address] | | + + + + + RPR SERUM (09/04/2010 12:09 PM PDT) + + + + + [...] + + | [facility] | [place] | | [place] [address] [facility] | REGIONAL | | [place] [address] | LABORATORY | + + + + + + + + | Performing | Address | City/State/Zipcode | Phone Number | | Organization | | | | + + + + + | [facility] | [address] [facility] | [place] [address] | | | LABORATORY | | | | + + + + + HIV QUANTITATIVE PCR, PLASMA (09/04/2010 12:09 PM PDT) + + + + + + | Component | Value | Ref Range | Performed | Pathologist | | | | | At | Signature | + + + + + + | HIV-QNT PCR | 54 | copies/mL | [facility] | | | | | | [facility] | | | | | | LABS | | + + + + + + | HIV QUANT | Plasma | | [facility] | | | SPECIMEN | | | [facility] | | | TYPE | | | LABS | | + + + + + + | HIV QUANT | Reportable Range: | | [facility] | | | INTERPRETAT | 48-10,000,000 HIV-1 | | [facility] | | | ION | copies/mL. Positive | | LABS | | | | results are consistent | | | | | | with active HIV | | | | | | infection. High | [...] | + + + + + | [facility] | [address] | [place] [address] | | | GENETICS LABS | [address] | | | | | [address] | | | + + + + + CD4 (T CELL), BLOOD (09/04/2010 12:09 PM PDT) + +---------+ + + + | Component | Value | Ref Range | Performed | Pathologist | | | | | At | Signature | + +---------+ + + + | CD4 (T | 156 (L) | 500 - 2000 /cu | [facility] | | | HELPER | | mm | DEPARTMENT | | | CELLS) | | | OF | | | | | | PATHOLOGY | | + +---------+ + + + | CD4 % (T | 9.0 (L) | 30.0 - 53.0 % | [facility] | | | HELPER | | | DEPARTMENT | | | CELLS) | | | OF | | | | | | PATHOLOGY | | + +---------+ + + + + + | Specimen [...] DEPARTMENT OF | [address] | [place] [address] | | | PATHOLOGY | [address] | | | + + + + + COMPLETE METABOLIC SET (NA,K,CL,CO2,BUN,CREAT,GLUC,CA,AST,ALT,BILI TOTAL,ALK PHOS,ALB,PROT TOTAL) (09/04/2010 12:09 PM PDT) + + + + + + | Component | Value | Ref Range | Performed | Pathologist | | | | | At | Signature | + + + + + + | GLUCOSE, | 94 | 60 - 99 mg/dL | [facility] | | | PLASMA | | | DEPARTMENT | | | (LAB) | | | OF | | | | | | PATHOLOGY | | + + + + + + | BUN, PLASMA | 14 | 6 - 20 mg/dL | [facility] | | | (LAB) | | | DEPARTMENT | | | | | | OF | | | | | | PATHOLOGY | | + + + + + + | CREATININE | 0.89 | 0.70 - 1.30 | [facility] | | | PLASMA | | mg/dL | DEPARTMENT | | | (LAB) | | | OF | | | | | | PATHOLOGY | | + + + + + + | TOTAL | 8.1 (H) | 6.1 - 7.9 g/dL | [facility] | | | PROTEIN, | | | DEPARTMENT | | | PLASMA | | | OF | | | (LAB) | | | PATHOLOGY | | + + + + + + | ALBUMIN, | 4.5 | 3.5 - 4.7 g/dL | [facility] | | | PLASMA | | | DEPARTMENT | | | (LAB) | | | OF | | | | | | PATHOLOGY | | + + + + + + | CALCIUM, | 9.6 | 8.6 - 10.2 | [facility] | | | PLASMA | | mg/dL | DEPARTMENT | | | (LAB) | | | OF | | | | | | PATHOLOGY | | + + + + + + | BILIRUBIN | 0.5 | 0.3 - 1.2 mg/dL | [facility] | | | TOTAL | | | DEPARTMENT | | | | | | OF | | | | | | PATHOLOGY | | + + + + + + | ALK PHOS | 74 | 53 - 128 U/L | [facility] | | | | | | DEPARTMENT | | | | | | OF | | | | | | PATHOLOGY | | + + + + + + | AST(SGOT) | 17 | 15 - 41 U/L | [facility] | | | | | | DEPARTMENT | | | | | | OF | | | | | | PATHOLOGY | | + + + + + + | SODIUM, | 139 | 134 - 143 | [facility] | | | PLASMA | | mmol/L | DEPARTMENT | | | (LAB) | | | OF | | | | | | PATHOLOGY | | + + + + + + | POTASSIUM, | 3.5 | 3.4 - 5.0 | [facility] | | | PLASMA | | mmol/L | DEPARTMENT | | | (LAB) | | | OF | | | | | | PATHOLOGY | | + + + + + + | CHLORIDE, | 102 | 97 - 108 mmol/L | [facility] | | | PLASMA | | | DEPARTMENT | | | (LAB) | | | OF | | | | | | PATHOLOGY | | + + + + + + | TOTAL CO2, | 29 | 23 - 31 mmol/L | [facility] | | | PLASMA | | | DEPARTMENT | | | (LAB) | | | OF | | | | | | PATHOLOGY | | + + + + + + | ALT (SGPT) | 18 | 13 - 48 U/L | [facility] | | | | | | DEPARTMENT | | | | | | OF | | | | | | PATHOLOGY | | + + + + + + | EGFR | > 60 | >60 mL/min | [facility] | | | - | | | DEPARTMENT | | | [place] | | | OF | | | [...] + + + | ANION GAP | 8 | 4 - 11 mmol/L | [facility] [...] DEPARTMENT OF | [address] | [place] [address] | | | PATHOLOGY | [address] | | | + + + + + CBC, WITH DIFFERENTIAL (09/04/2010 12:09 PM PDT) + + + + + + | Component | Value | Ref Range | Performed | Pathologist | | | | | At | Signature | + + + + + + | WHITE CELL | 6.6 | 4.4 - 11.0 K/cu | [facility] | | | COUNT | | mm | DEPARTMENT | | | | | | OF | | | | | | PATHOLOGY | | + + + + + + | RED CELL | 4.47 (L) | 4.50 - 5.90 | [facility] | | | COUNT | | M/cu mm | DEPARTMENT | | | | | | OF | | | | | | PATHOLOGY | | + + + + + + | HEMOGLOBIN | 14.3 | 13.5 - 17.5 | [facility] | | | | | g/dL | DEPARTMENT | | | | | | OF | | | | | | PATHOLOGY | | + + + + + + | HEMATOCRIT | 42.6 | 41.0 - 53.0 % | [facility] | | | | | | DEPARTMENT | | | | | | OF | | | | | | PATHOLOGY | | + + + + + + | MCV | 95.4 | 80.0 - 96.0 fL | [facility] | | | | | | DEPARTMENT | | | | | | OF | | | | | | PATHOLOGY | | + + + + + + | MCHC | 33.5 | 33.4 - 35.5 | [facility] | | | | | g/dL | DEPARTMENT | | | | | | OF | | | | | | PATHOLOGY | | + + + + + + | RDW | 14.1 | 11.5 - 15.0 % | [facility] | | | | | | DEPARTMENT | | | | | | OF | | | | | | PATHOLOGY | | + + + + + + | PLATELET | 236 | 150 - 400 K/cu | [facility] [...] | + + + + + | [facility] | [address] | [place] [address] | | | PATHOLOGY | [address] | | | + + + + + documented in this encounter Visit Diagnoses + + | Diagnosis | + + | HIV (human immunodeficiency virus infection) (HCC) Asymptomatic human | | immunodeficiency virus (HIV) infection status | + + documented in this encounter"
--- OUTSIDE RECORDS SUMMARY | ~2019-10-28 | XMS | Encounter Summary ---
Demographics + + + | Address | [address] | | | [place] [address] | + + + | Home Phone | | + + + | Preferred Language | Unknown | + + + | Marital Status | Single | + + + | Anabaptism Affiliation | Unknown | + + + | Race | White | + + + | Ethnic Group | Not or | + + + Author + + + | Author | [facility] | + + + | Organization | [facility] | + + + | Address | Unknown | + + + | Phone | Unavailable | + + + Support + + +---------+ + | Name | Relationship | Address | Phone | + + +---------+ + | Skyler Todd | ECON | Unknown | | + + +---------+ + Care Team Providers + +------+ + | Care Hog Stomach Preparer Name | Role | Phone | + [...] [facility] | [address] | | | | | [address] | [place] [place], | | | | | Mailcode: [id number] | [place] [address] | | | | | [facility] | [phone] | | | | | [place], [place] | | | | | | [address] | | | | | | [phone] | | | +--------+ + + + [...]
--- OUTSIDE RECORDS SUMMARY | ~2019-10-28 | XMS | Encounter Summary ---
Demographics + + + | Address | [address] | | | [place] [address] | + + + | Home Phone | | + + + | Preferred Language | Unknown | + + + | Marital Status | Single | + + + | Episcopalian Affiliation | Unknown | + + + | Race | White | + + + | Ethnic Group | Not or | + + + Author + + + | Author | [facility] | + + + | Organization | [facility] | + + + | Address | Unknown | + + + | Phone | Unavailable | + + + Support + + +---------+ + | Name | Relationship | Address | Phone | + + +---------+ + | Skyler Todd | ECON | Unknown | | + + +---------+ + Care Team Providers + +------+ + | Care Trim Carpenter Name | Role | Phone | + +------+ + | Jerome Young MD | PCP | | + +------+ + Reason for Visit + + + | Reason | Comments | + + + | Lab Results | | + + + Encounter Details +--------+ + + + + | Date | Type | Department | Care Team | Description | +--------+ + + + + | 02/16/ | Telephone | Internal Medicine | Faustina Henao MD | Lab Results | | 2011 | | Clinic at [facility] | [address] | | | | | [address] | [address], | | | | | Mailcode: [id number] | [place] [address] | | | | | [facility] | [phone] | | | | | [place], [place] | | | | | | [address] | | | | | | [phone] | | | +--------+ + + + [...]
--- OUTSIDE RECORDS SUMMARY | ~2019-10-28 | XMS | Encounter Summary ---
Demographics + + + | Address | [address] | | | [place] [address] | + + + | Home Phone | | + + + | Preferred Language | Unknown | + + + | Marital Status | Single | + + + | Scientologist Affiliation | Unknown | + + + [...] Team Providers + +------+ + | Care Medical Record Librarian Name | Role | Phone | + [...] | | | | | | Mailcode: [id number] | | | | | | [facility] | | | | | | [place], [place] | | | | | | [address] | | | | | | [phone] | | | +--------+ + + + [...]
--- OUTSIDE RECORDS SUMMARY | ~2019-10-28 | XMS | Encounter Summary ---
Demographics + + + | Address | [address] | | | [place] [address] | + + + | Home Phone [...] Author + + + | Author | [facility] | + + + | Organization | [facility] | + + + | Address | Unknown | + + + | Phone | Unavailable | + + + Support + + +---------+ + | Name | Relationship | Address | Phone | + + +---------+ + | Skyler Todd | ECON | Unknown | | + + +---------+ + Care Team Providers + +------+ + | Care Setter Induction Heating Equipment Name | Role | Phone | + +------+ + | Jerome Young MD | PCP | | + +------+ + Reason for Visit + + + | Reason | Comments | + + + | Refill Request | | + + + Encounter Details +--------+--------+ + + + | Date | Type | Department | Care Team | Description | +--------+--------+ + + + | 07/17/ | Refill | Internal Medicine | Faustina Henao MD | Refill Request | | 2011 | | Clinic at [facility] [address] | [address] | | | | | [address] | [facility], | | | | | Mailcode: [id number] | [place] [address] | | | | | [facility] | [phone] | | | | | [place], [place] | | | | | | [address] | | | | | | [phone] | | | +--------+--------+ + + + [...] + | Diagnosis | + + | Vitamin d deficiency - Primary Unspecified vitamin D deficiency | + + documented in this encounter"
--- OUTSIDE RECORDS SUMMARY | ~2019-10-28 | XMS | Encounter Summary ---
Demographics + + + | Address | [address] | | | [place] [address] | + + + | Home Phone [...] Team Providers + +------+ + | Care Fire Extinguisher Repairer Inspector Name | Role | Phone | + +------+ + | Jerome Young MD | PCP | | + +------+ + Reason for Visit + + + | Reason | Comments | + + + | Refill Request | vitamin D | + + + Encounter Details +--------+--------+ + + + | Date | Type | Department | Care Team | Description | +--------+--------+ + + + | 02/16/ | Refill | Internal Medicine | Faustina Henao MD | Refill Request | | 2011 | | Clinic at [facility] | [address] | (vitamin D) | | | | [address] | [place] [place], | | | | | Mailcode: [id number] | [place] [address] | | | | | [facility] | [phone] | | | | | [place], [place] | | | | | | [address] | | | | | | [phone] | | | +--------+--------+ + + + [...]
--- OUTSIDE RECORDS SUMMARY | ~2019-10-28 | XMS | Encounter Summary ---
Demographics + + + | Address | [address] | | | [place] [address] | + + + | Home Phone [...] Team Providers + +------+ + | Care Dry Color Tester Name | Role | Phone | + [...] Description | +--------+--------+ + + + | 02/22/ | Refill | Internal Medicine | Faustina Henao MD | Refill Request | | 2010 | | [facility] | [address] | | | | | [address] | [facility], | | | | | Mailcode: [id number] | [place] [address] | | | | | [facility] | [phone] | | | | | [place], [place] | | | | | | [address] | | | | | | [phone] | | | +--------+--------+ + + + [...]
--- OUTSIDE RECORDS SUMMARY | ~2019-10-28 | XMS | Encounter Summary ---
Demographics + + + | Address | [address] | | | [place] [address] | + + + | Home Phone | | + + + | Preferred Language | Unknown | + + + | Marital Status | Single | + + + | Episcopal Affiliation | Unknown | + + + | Race | White | + + + | Ethnic Group | Not or | + + + Author + + + | Author | [facility] | + + + | Organization | [facility] | + + + | Address | Unknown | + + + | Phone | Unavailable | + + + Support + + +---------+ + | Name | Relationship | Address | Phone | + + +---------+ + | Skyler Todd | ECON | Unknown | | + + +---------+ + Care Team Providers + +------+ + | Care Shot Coat Tender Name | Role | Phone | [...] | | | | immunodefici | [address] | [address] [facility] | | | | | ency virus | Coty Oscar. | Eben Valles | | | | | (HIV) | Jaleesa Lazcano, | Danilo Royal, | | | | | disease | [place] [address] | [place] | | | | | (HCC) | Phone: | [phone] | | | | | | [phone] | Phone: | | | | | | Fax: | [phone] | | | | | | [phone] | Fax: | | | | | | | [phone] | +--------+--------+ + + + + Encounter [...] virus infection) | | | | Mailcode: [id number] | [place] [address] | ([facility]); | | | | [facility] | [phone] | Hyperlipidemia LDL | | | | [place], [place] | | goal < 100; Anxiety | | | | [address] | | state, unspecified | | | | [phone] | | | +--------+---------+ + + + [...] was last seen for f/u in the [facility] c on 02/12/2011. Since the [...] was negative. Establishing with new PCP at [facility]. Pavan is otherwise stable. He denies fevers, [...] gait. Labs: Lab Results Component Value Date [id number] 321 08/27/2011 [id number] 10 08/27/2011 HIVPCR <48 01/11/2011 Lab Results Component Value Date RPR Non-Reactive 09/04/2010 Lab Results Component Value Date CHOL 173 01/10/2011 LDL 95 01/10/2011 HDL 41 01/10/2011 TRI 185 01/10/2011 Lab Results Component Value Date [id number] 31 09/04/2010 Last CBC, CMP reviewed with [...] [facility] | [facility] | | [place] [place] [address] | REGIONAL | | [place] [address] | LABORATORY | + + + + + + + + | Performing | Address | City/State/Zipcode | Phone Number | | Organization | | | | + + + + + | [facility] | [address] | [place] [address] | | | LABORATORY | | | [...] DEPARTMENT OF | [address] | [place] [address] | | | PATHOLOGY | [address] [...] + + + | [facility] | [address] | [place] [address] | | | DIAGNOSTIC | [address] [...] | | | DEPARTMENT | | | DJIBOUTIAN | | | OF | | | [...] + + | [facility] | [address] | [place] [address] | | | PATHOLOGY | [address] [...] | + + + + + | [facility] DEPARTMENT | [address] | [place] [address] | | | PATHOLOGY | [address] [...] + + | [facility] | [address] | [place] [address] | | | PATHOLOGY | [address] [...] + + | [facility] | [address] | [place] [address] | | | PATHOLOGY | [address] [...]
--- OUTSIDE RECORDS SUMMARY | ~2019-10-28 | XMS | Encounter Summary ---
Demographics + + + | Address | [address] | | | [place] [address] | + + + | Home Phone [...] Team Providers + +------+ + | Care Computer Project Manager Name | Role | Phone | + +------+ + | Jerome Young MD | PCP | | + +------+ + Encounter Details +--------+ + + + + | Date | Type | Department | Care Team | Description | +--------+ + + + + | 07/01/ | Kindergarten Instructional Assistant | Internal Medicine | Faustina Henao MD | | | 2010 | | Clinic at [facility] | [address] | | | | | [address] | Reena Carrasco [place], | | | | | Mailcode: [id number] | [place] [address] | | | | | [facility] | [phone] | | | | | [place], [place] | | | | | | [address] | | | | | | [phone] | | | +--------+ + + + [...]
--- OUTSIDE RECORDS SUMMARY | ~2019-10-28 | XMS | Encounter Summary ---
Demographics + + + | Address | [address] | | | [place] [address] | + + + | Home Phone [...] + + + | Author | [facility] | + + + | Organization | [facility] | + + + | Address | Unknown | + + + | Phone | Unavailable | + + + Support + + +---------+ + | Name | Relationship | Address | Phone | + + +---------+ + | Skyler Todd | ECON | Unknown | | + + +---------+ + Care Team Providers + +------+ + | Care Technical Clerk Name | Role | Phone | [...] | | [address] | Reena Carrasco [place], | virus infection) | | | | Mailcode: [id number] | [place] [address] | ([facility]) (Primary Dx); | | | | [facility] | [phone] | Herpes zoster | | | | [place], [place] | | without mention of | | | | [address] | | complication; | | | | [phone] | | Hearing loss in | | [...] y.o. HIV infected male who presents to [facility] care. History of Present Illness: Pavan reports he was first diagnosed with HIV-infection in 29 04 in [place], when he presented for routine screening . [...] 289. He states his current provider in [facility], recently recommended he change his boosted darunavir to twice daily. Pavan notes, however , that he does occasionally miss his evening dose of his PIs. Currently, Pavan states he has recently recovered from a recent hospitalization in [place], [place] for a bronchitis and asthma exacerbation. [...] he feels is related to living in [facility]. He denies any problems with fevers, chills [...] PPV23 09/04/2010 Pavan was born in [place], [place]. He has lived in [place], [place] and [facility]. He chase es in [facility] with his partner and a dog. Physicial Examination: BP 144/88 | Pulse 114 | Temp (Src) 36.7 C (98 F) (Oral) | Ht 1.753 m (5' 9") | Wt 94.66 6 kg (208 lb 11.2 oz) | BMI 30.82 kg/(m^2) General: He is an alert, overweight man in [facility]. Skin: No rash or petechiae. Lymph Nodes: [...] atory sense intact throughout. He has normal bkglhz-ql-yiws exam. Normal gait. DTRs are 2+ and [...] + + + | [facility] ([address] [facility]) [facility] | [facility] | | [place] [place] [address] [facility] | REGIONAL | | [place] [address] | LABORATORY | + + + + + + + + | Performing | Address | City/State/Zipcode | Phone Number | | Organization | | | | + + + + + | [facility] | [address] | [place] [address] | | | LABORATORY | | | [...] + + | [facility] ([facility] [facility]) Justin | [place] | | [place] [address] | REGIONAL | | [place] [address] | LABORATORY | + + + + + + + + | Performing | Address | City/State/Zipcode | Phone Number | | Organization | | | | + + + + + | [facility] | [address] | [place] [address] | | | LABORATORY | | | [...] At | + + + | [facility] ([facility]) [facility] | [facility] | | [facility] [place] [address] | REGIONAL | | [place] [address] | LABORATORY | + + + + + + + + | Performing | Address | City/State/Zipcode | Phone Number | | Organization | | | | + + + + + | [facility] | [address] | [place] [address] | | | LABORATORY | | | [...] At | + + + | [facility]) [facility] | [facility] | | [place] [address] [facility] | REGIONAL | | [place] [address] | LABORATORY | + + + + + + + + | Performing | Address | City/State/Zipcode | Phone Number | | Organization | | | | + + + + + | [facility] | [address] | [place] [address] | | | LABORATORY | | | [...] | + + + + + | [facility] | [address] | [place] [address] | | | PATHOLOGY | [address] [...] | | | | | | 20 ng/mL(Carbajal CL et | | | | | [...] Castillo, | | | | | | [place] [address] | | | | | | [phone] | | | | | | | | | | | | www.[employer], | | | | | | Loyda [...] [facility] | [address] | [place], [place] | | | UNIV PTH - INTFC | | [address] | | + + + + + [...] Anderson | [facility] | | [place] | REGIONAL | | [place] [address] | LABORATORY | + + + + + + + + | Performing | Address | City/State/Zipcode | Phone Number | | Organization | | | | + + + + + | [facility] | [address] | [place] [address] | | | LABORATORY | | | | + + + + + HIV QUANTITATIVE PCR, PLASMA (09/04/2010 12:09 PM PDT) + + + + + + | Component | Value | Ref Range | Performed | Pathologist | | | | | At | Signature | + + + + + + | HIV-QNT PCR | 54 | copies/mL | [facility] | | | | | | AL GENETICS | | | | | | LABS | | + + + + + + | HIV QUANT | Plasma | | [facility] | | | SPECIMEN | | | AL GENETICS | | | TYPE | | | LABS | | + + + + + + | HIV QUANT | Reportable Range: | | [facility] | | | INTERPRETAT | 48-10,000,000 HIV-1 [...] + + + + | [facility] | [facility] | [place] [address] | | | GENETICS LABS | [address] | | | | | AVE. [...] | CD4 (T Cell), whole blood | [facility] | | | DEPARTMENT OF | | | PATHOLOGY | + + + + + + + + | Performing | Address | City/State/Zipcode | Phone Number | | Organization | | | | + + + + + | [facility] DEPARTMENT OF | [address] [facility] | [place] [address] | | | PATHOLOGY | [address] [...] DEPARTMENT OF | [address] | [place] [address] | | | PATHOLOGY | [address] [...] | + + + + + | [facility] | [address] | [place] [address] | | | PATHOLOGY | [address] [...]
--- OUTSIDE RECORDS SUMMARY | ~2019-10-28 | XMS | Encounter Summary ---
Demographics + + + | Address | [address] | | | [place] [address] | + + + | Home Phone [...] Author + + + | Author | [facility] | + + + | Organization | [facility] | + + + | Address | Unknown | + + + | Phone | Unavailable | + + + Support + + +---------+ + | Name | Relationship | Address | Phone | + + +---------+ + | Skyler Todd | ECON | Unknown | | + + +---------+ + Care Team Providers + +------+ + | Care Load Mixer Name | Role | Phone | + +------+ + | Jerome Young MD | PCP | | + +------+ + Encounter Details +--------+ + + + + | Date | Type | Department | Care Team | Description | +--------+ + + + + | 03/27/ | Orders Only | [facility] Primary Care | Faustina Henao MD | | | 2010 | | at [facility] | [address] | | | | | [address] | Reena Carrasco [place], | | | | | Loop Mailcode: | [place] [address] | | | | | [id number] | [phone] | | | | | [place], | | | | | | [place] [address] | | | | | | [phone] | | | +--------+ + + + [...]
--- OUTSIDE RECORDS SUMMARY | ~2019-10-28 | XMS | Encounter Summary ---
Demographics + + + | Address | [address] | | | [place] [address] | + + + | Home Phone | | + + + | Preferred Language | Unknown | + + + | Marital Status | Single | + + + | Restorationist Affiliation | Unknown | + + + | Race | White | + + + | Ethnic Group | Not or | + + + Author + + + | Author | [facility] | + + + | Organization | [facility] | + + + | Address | Unknown | + + + | Phone | Unavailable | + + + Support + + +---------+ + | Name | Relationship | Address | Phone | + + +---------+ + | Skyler Todd | ECON | Unknown | | + + +---------+ + Care Team Providers + +------+ + | Care Sandfill Operator Name | Role | Phone | [...] | Required | | immunodefici | [address] | [address] [facility] | | | | | ency virus | Coty Oscar. | [facility] | | | | | (HIV) | Jaleesa Lazcano, | [place], | | | | | disease | [place] [address] | [place] | | | | | (HCC) | Phone: | [phone] | | | | | | [phone] | Phone: | | | | | | Fax: | [phone] | | | | | | [phone] | Fax: | | | | | | | [phone] | +--------+ + + + + + [...] virus infection) | | | | Mailcode: [id number] | [place] [address] | ([facility]); | | | | Phys[facility]ilion | [phone] | Hyperlipidemia LDL | | | | [place], [place] | | goal < 100; | | | | [address] | | Tachycardia; | | | | [phone] | | Unspecified asthma; | | | [...] disease. He was last seen in the [facility] on 12/12 12/21. PCP: Jerome [...] gait. Labs: Lab Results Component Value Date [id number] 156* 09/04/2010 [id number] 9.0* 09/04/2010 HIVPCR 54 09/04/2010 Lab Results Component Value Date RPR Non-Reactive 09/04/2010 Lab Results Component Value Date CHOL 245 09/04/2010 LDL 142 09/04/2010 HDL 28 09/04/2010 TRI 406 09/04/2010 Lab Results Component Value Date [id number] 31 09/04/2010 Last CBC, CMP reviewed with [...]
--- OUTSIDE RECORDS SUMMARY | ~2019-10-28 | XMS | Encounter Summary ---
Demographics + + + | Address | [address] | | | [place] [address] | + + + | Home Phone | | + + + | Preferred Language | Unknown | + + + | Marital Status | Single | + + + | Alevism Affiliation | Unknown | + + + | Race | White | + + + | Ethnic Group | Not or | + + + Author + + + | Author | [facility] | + + + | Organization | [facility] | + + + | Address | Unknown | + + + | Phone | Unavailable | + + + Support + + +---------+ + | Name | Relationship | Address | Phone | + + +---------+ + | Skyler Todd | ECON | Unknown | | + + +---------+ + Care Team Providers + +------+ + | Care Director Television Name | Role | Phone | + [...] | | | [address] | [facility], | | | | | Mailcode: [id number] | [place] [address] | | | | | Physician's Mak | [phone] | | | | | [place], [place] | | | | | | [address] | | | | | | [phone] | | | +--------+--------+ + + + [...]
--- OUTSIDE RECORDS SUMMARY | ~2019-10-28 | XMS | Encounter Summary ---
Demographics + + + | Address | [address] | | | [place] [address] | + + + | Home Phone [...] Author + + + | Author | [facility] | + + + | Organization | [facility] | + + + | Address | Unknown | + + + | Phone | Unavailable | + + + Support + + +---------+ + | Name | Relationship | Address | Phone | + + +---------+ + | Skyler Todd | ECON | Unknown | | + + +---------+ + Care Team Providers + +------+ + | Care Accounts Payable Specialist Name | Role | Phone | [...] | Required | | immunodefici | [address] | [address] [facility] | | | | | ency virus | Coty Oscar. | [facility] | | | | | (HIV) | Jaleesa Lazcano, | [place], | | | | | disease | [place] [address] | [place] | | | | | (HCC) | Phone: | [address] | | | | | | [phone] | Phone: | | | | | | Fax: | [phone] | | | | | | [phone] | Fax: | | | | | | | [phone] | +--------+ + + + + + [...] virus infection) | | | | Mailcode: [id number] | [place] [address] | ([facility]); | | | | [facility] | [phone] | Hyperlipidemia LDL | | | | [place], [place] | | goal < 100; | | | | [address] | | Tachycardia; | | | | [phone] | | Unspecified asthma; | | | [...] He was last seen in the [facility] on 12/12 12/21. PCP: [...] gait. Labs: Lab Results Component Value Date [id number] 156* 09/04/2010 [id number] 9.0* 09/04/2010 HIVPCR 54 09/04/2010 Lab Results Component Value Date RPR Non-Reactive 09/04/2010 Lab Results Component Value Date CHOL 245 09/04/2010 LDL 142 09/04/2010 HDL 28 09/04/2010 TRI 406 09/04/2010 Lab Results Component Value Date [id number] 31 09/04/2010 Last CBC, CMP reviewed with [...] follow up, sooner if acute issue arises. FAUSTIAN NAVARRO MD Anay Galloway MA - 02/12/2011 [...]
--- OUTSIDE RECORDS SUMMARY | ~2019-10-28 | XMS | Encounter Summary ---
Demographics + + + | Address | [address] | | | [place] [address] | + + + | Home Phone | | + + + | Preferred Language | Unknown | + + + | Marital Status | Single | + + + | Hoahaoism Affiliation | Unknown | + + + [...] Team Providers + +------+ + | Care Extension Service Specialist Name | Role | Phone | [...] | [address] | [address] [place], | medication (young | | | | Mailcode: [id number] | [place] [address] | pt-medication side | | | | [facility] | [phone] | effects) | | | | [place], [place] | | | | | | [address] | | | | | | [phone] | | | +--------+ + + + [...]
--- OUTSIDE RECORDS SUMMARY | ~2019-10-28 | XMS | Encounter Summary ---
Demographics + + + | Address | [address] | | | [place] [address] | + + + | Home Phone [...] Team Providers + +------+ + | Care Sales Team Recruiter Name | Role | Phone | + [...] | | | | | | Mailcode: [id number] | | | | | | [facility] | | | | | | [place], [place] | | | | | | [address] | | | | | | [phone] | | | +--------+ + + + [...]
--- OUTSIDE RECORDS SUMMARY | ~2019-10-28 | XMS | Encounter Summary ---
Demographics + + + | Address | [address] | | | [place] [address] | + + + | Home Phone [...] Author + + + | Author | [facility] | + + + | Organization | [facility] | + + + | Address | Unknown | + + + | Phone | Unavailable | + + + Support + + +---------+ + | Name | Relationship | Address | Phone | + + +---------+ + | Skyler Todd | ECON | Unknown | | + + +---------+ + Care Team Providers + +------+ + | Care Plugger Name | Role | Phone | + [...] | | [address] | Reena Carrasco [place], | virus infection) | | | | Mailcode: [id number] | [place] [address] | ([facility]) (Primary Dx); | | | | [facility] | [phone] | Herpes zoster | | | | [place], [place] | | without mention of | | | | [address] | | complication; | | | | [phone] | | Hearing loss in | | [...] diagnosed with HIV-infection in 29 04 in [place], when he presented for routine screening . [...] 289. He states his current provider in [facility], recently recommended he change his boosted darunavir to twice daily. Pavan notes, however , that he does occasionally miss his evening dose of his PIs. Currently, Pavan states he has recently recovered from a recent hospitalization in [place], [place] for a bronchitis and asthma exacerbation. [...] he feels is related to living in [facility]. He denies any problems with fevers, chills [...] 09/04/2010 PPV23 09/04/2010 Pavan was born in [place], [place]. He has lived in [place], [place] and [facility]. He chase es in [facility] with his partner and a dog. Physicial Examination: BP 144/88 | Pulse 114 | Temp (Src) 36.7 C (98 F) (Oral) | Ht 1.753 m (5' 9") | Wt 94.66 6 kg (208 lb 11.2 oz) | BMI 30.82 kg/(m^2) General: He is an alert, overweight man in [facility]. Skin: No rash or petechiae. Lymph Nodes: [...] atory sense intact throughout. He has normal qnuxrw-kd-cwfw exam. Normal gait. DTRs are 2+ and [...] + + + | [facility] ([address] [facility]) [facility] | [facility] | | [place] [address] [facility] | REGIONAL | | [place] [address] | LABORATORY | + + + + + + + + | Performing | Address | City/State/Zipcode | Phone Number | | Organization | | | | + + + + + | [facility] | [address] | [place] [address] | | | LABORATORY | | | [...] Justin | JUSTIN | | [place] [address] | REGIONAL | | [place] [address] | LABORATORY | + + + + + + + + | Performing | Address | City/State/Zipcode | Phone Number | | Organization | | | | + + + + + | [facility] | [address] | [place] [address] | | | LABORATORY | | | [...] At | + + + | [facility] ([facility]) [facility] | [facility] | | [facility] [address] | REGIONAL | | [place] [address] | LABORATORY | + + + + + + + + | Performing | Address | City/State/Zipcode | Phone Number | | Organization | | | | + + + + + | [facility] | [address] | [place] [address] | | | LABORATORY | | | [...] At | + + + | [facility]) [facility] | [facility] | | [place] [address] [facility] | REGIONAL | | [place] [address] | LABORATORY | + + + + + + + + | Performing | Address | City/State/Zipcode | Phone Number | | Organization | | | | + + + + + | [facility] | [address] | [place] [address] | | | LABORATORY | | | [...] | + + + + + | [facility] | [address] | [place] [address] | | | PATHOLOGY | [address] [...] [address]illo, | | | | | | [place] [address] | | | | | | [phone] | | | | | | | | | | | | www.[email or web address], | | | | | | Loyda Dleuca MD - | | | | | [...] [facility] | [address] | [place], [place] | | | UNIV PTH - INTFC | | [address] | | + + + + + [...] Anderson | [facility] | | [address] | REGIONAL | | [place] [address] | LABORATORY | + + + + + + + + | Performing | Address | City/State/Zipcode | Phone Number | | Organization | | | | + + + + + | [facility] | [address] | [place] [address] | | | LABORATORY | | | | + + + + + HIV QUANTITATIVE PCR, PLASMA (09/04/2010 12:09 PM PDT) + + + + + + | Component | Value | Ref Range | Performed | Pathologist | | | | | At | Signature | + + + + + + | HIV-QNT PCR | 54 | copies/mL | [facility] | | | | | | [facility] GENETICS | | | | | | LABS | | + + + + + + | HIV QUANT | Plasma | | [facility] | | | SPECIMEN | | | AL GENETICS | | | TYPE | | | LABS | | + + + + + + | HIV QUANT | Reportable Range: | | [facility] | | | INTERPRETAT | 48-10,000,000 HIV-1 [...] + + | [facility] | [facility] | [place] [address] | | | GENETICS LABS | [address] | | | | | AVE. [...] | CD4 (T Cell), whole blood | [facility] | | | DEPARTMENT OF | | | PATHOLOGY | + + + + + + + + | Performing | Address | City/State/Zipcode | Phone Number | | Organization | | | | + + + + + | [facility] DEPARTMENT OF | [address] [facility] | [place] [address] | | | PATHOLOGY | [address] [...] | | | DEPARTMENT | | | GUYANESE | | | OF | | | [...] DEPARTMENT OF | [address] | [place] [address] | | | PATHOLOGY | [address] [...] | + + + + + | [facility] | [address] | [place] [address] | | | PATHOLOGY | [address] [...]
--- OUTSIDE RECORDS SUMMARY | ~2019-10-28 | XMS | Encounter Summary ---
Demographics + + + | Address | [address] | | | [place] [address] | + + + | Home Phone [...] + + | Author | [facility] | + + + | Organization | [facility] | + + + | Address | Unknown | + + + | Phone | Unavailable | + + + Support + + +---------+ + | Name | Relationship | Address | Phone | + + +---------+ + | Skyler Todd | ECON | Unknown | | + + +---------+ + Care Team Providers + +------+ + | Care Homicide Squad Commanding Officer Name | Role | Phone | [...] | | [address] | Reena Carrasco [place], | | | | | Mailcode: [id number] | [place] [address] | | | | | [facility] | [phone] | | | | | [place], [place] | | | | | | [address] | | | | | | [phone] | | | +--------+ + + + [...]
--- OUTSIDE RECORDS SUMMARY | ~2019-10-28 | XMS | Encounter Summary ---
Demographics + + + | Address | [address] | | | [place] [address] | + + + | Home Phone | | + + + | Preferred Language | Unknown | + + + | Marital Status | Single | + + + | Congregation Affiliation | Unknown | + + + [...] Team Providers + +------+ + | Care Traffic Maintenance Officer Name | Role | Phone | [...] | [address] | [address] [place], | down) | | | | Mailcode: [id number] | [place] [address] | | | | | [facility] | [phone] | | | | | [place], [place] | | | | | | [address] | | | | | | [phone] | | | +--------+ + + + [...]
--- OUTSIDE RECORDS SUMMARY | ~2019-10-28 | XMS | Encounter Summary ---
Demographics + + + | Address | [address] | | | [place] [address] | + + + | Home Phone [...] Author + + + | Author | [facility] | + + + | Organization | [facility] | + + + | Address | Unknown | + + + | Phone | Unavailable | + + + Support + + +---------+ + | Name | Relationship | Address | Phone | + + +---------+ + | Skyler Todd | ECON | Unknown | | + + +---------+ + Care Team Providers + +------+ + | Care Associate Professor Of Sociology Name | Role | Phone | + [...] | [address] | [address] [place], | down) | | | | Mailcode: [id number] | [place] [address] | | | | | [facility] | [phone] | | | | | [place], [place] | | | | | | [address] | | | | | | [phone] | | | +--------+ + + + [...]
--- OUTSIDE RECORDS SUMMARY | ~2019-10-28 | XMS | Encounter Summary ---
Demographics + + + | Address | [address] | | | [place] [address] | + + + | Home Phone | | + + + | Preferred Language | Unknown | + + + | Marital Status | Single | + + + | Oriental Orthodox Affiliation | Unknown | + + + [...] Team Providers + +------+ + | Care Tester Vibrator Equipment Name | Role | Phone | [...] [address] | | | | | [address] | Reena Carrasco [place], | | | | | Mailcode: [id number] | [place] [address] | | | | | [facility] | [phone] | | | | | [place], [place] | | | | | | [address] | | | | | | [phone] | | | +--------+ + + + [...]
--- OUTSIDE RECORDS SUMMARY | ~2019-10-28 | XMS | Encounter Summary ---
Demographics + + + | Address | [address] | | | [place] [address] | + + + | Home Phone | | + + + | Preferred Language | Unknown | + + + | Marital Status | Single | + + + | Presybeterian Affiliation | Unknown | + + + | Race | White | + + + | Ethnic Group | Not or | + + + Author + + + | Author | [facility] | + + + | Organization | [facility] | + + + | Address | Unknown | + + + | Phone | Unavailable | + + + Support + + +---------+ + | Name | Relationship | Address | Phone | + + +---------+ + | Skyler Todd | ECON | Unknown | | + + +---------+ + Care Team Providers + +------+ + | Care Financial Administrator Name | Role | Phone | + [...] | | | [address] | [facility], | | | | | Mailcode: [id number] | [place] [address] | | | | | [facility] | [phone] | | | | | [place], [place] | | | | | | [address] | | | | | | [phone] | | | +--------+--------+ + + + [...]
--- OUTSIDE RECORDS SUMMARY | ~2019-10-28 | XMS | Encounter Summary ---
Demographics + + + | Address | [address] | | | [place] [address] | + + + | Home Phone | | + + + | Preferred Language | Unknown | + + + | Marital Status | Single | + + + | Amish Affiliation | Unknown | + + + | Race | White | + + + | Ethnic Group | Not or | + + + Author + + + | Author | [facility] | + + + | Organization | [facility] | + + + | Address | Unknown | + + + | Phone | Unavailable | + + + Support + + +---------+ + | Name | Relationship | Address | Phone | + + +---------+ + | Skyler Todd | ECON | Unknown | | + + +---------+ + Care Team Providers + +------+ + | Care Binder Stripper Hand Name | Role | Phone | [...] Draw | | 2010 | | at [facility] | [address] | | | | | [address] | Reena Carrasco [place] | | | | | Loop Mailcode: | [place] [address] | | | | | [id number] Physician's | [phone] | | | | | [place], | | | | | | [place] [address] | | | | | | [phone] | | | +--------+ + + + [...]
--- OUTSIDE RECORDS SUMMARY | ~2019-10-28 | XMS | Encounter Summary ---
Demographics + + + | Address | [address] | | | [place] [address] | + + + | Home Phone [...] Team Providers + +------+ + | Care General Production Manager Name | Role | Phone | [...] | | | [address] | [facility], | | | | | Mailcode: [id number] | [place] [address] | | | | | [facility] | [phone] | | | | | [place], [place] | | | | | | [address] | | | | | | [phone] | | | +--------+--------+ + + + [...]
--- OUTSIDE RECORDS SUMMARY | ~2019-10-28 | XMS | Encounter Summary ---
Demographics + + + | Address | [address] | | | [place] [address] | + + + | Home Phone [...] Providers + +------+ + | Care Wire Inspector Name | Role | Phone | [...] | | | [address] | [facility], | | | | | Mailcode: [id number] | [place] [address] | | | | | [facility] | [phone] | | | | | [place], [place] | | | | | | [address] | | | | | | [phone] | | | +--------+--------+ + + + [...]
--- OUTSIDE RECORDS SUMMARY | ~2019-10-28 | XMS | Encounter Summary ---
Demographics + + + | Address | [address] | | | [place] [address] | + + + | Home Phone [...] Team Providers + +------+ + | Care Aircraft Cabin Cleaner Name | Role | Phone | + [...] | | [address] | Reena Carrasco [place], | Authorization | | | | Mailcode: [id number] | [place] [address] | | | | | Physician[facility] | [phone] | | | | | [place], [place] | | | | | | [address] | | | | | | [phone] | | | +--------+ + + + [...]
--- OUTSIDE RECORDS SUMMARY | ~2019-10-28 | XMS | Encounter Summary ---
Demographics + + + | Address | [address] | | | [place] [address] | + + + | Home Phone [...] Author + + + | Author | [facility] | + + + | Organization | [facility] | + + + | Address | Unknown | + + + | Phone | Unavailable | + + + Support + + +---------+ + | Name | Relationship | Address | Phone | + + +---------+ + | Skyler Todd | ECON | Unknown | | + + +---------+ + Care Team Providers + +------+ + | Care Mortgage Loan Reviewer Name | Role | Phone | + [...] | immunodefici | [address] | [address] [facility] | | | | | ency virus | [address] | Eben Valles | | | | | (HIV) | Jaleesa Lazcano, | [place], | | | | | disease | [place] [address] | [place] | | | | | (HCC) | Phone: | [address] | | | | | | [phone] | Phone: | | | | | | Fax: | [phone] | | | | | | [phone] | Fax: | | | | | | | [phone] | +--------+ + + + + + Encounter Details +--------+---------+ + + + | Date | Type | Department | Care Team | Description | +--------+---------+ + + + | 01/01/ | Office | Internal Medicine | Faustina Henao MD | HIV (human | | 2010 | Visit | Clinic at [facility] [address] | [address] [facility] | immunodeficiency | | | | [address] | [place], | virus infection) | | | | Mailcode: [id number] | [place] [address] | (HCC) (Primary Dx); | | | | [facility] | [phone] | Unspecified asthma; | | | | [place], [place] | | Insomnia; Anxiety | | | | [address] | | state, unspecified; | | | | [phone] | | Hyperlipidemia LDL | | | [...] as awakening 2-3 times during the night. Pavan states he has to get up to [...] gait. Labs: Lab Results Component Value Date [id number] 156* 09/04/2010 [id number] 9.0* 09/04/2010 HIVPCR 54 09/04/2010 Lab Results Component Value Date RPR Non-Reactive 09/04/2010 Lab Results Component Value Date CHOL 245 09/04/2010 LDL 142 09/04/2010 HDL 28 09/04/2010 TRI 406 09/04/2010 Lab Results Component Value Date [id number] 31 09/04/2010 Last CBC, CMP reviewed with [...]
--- OUTSIDE RECORDS SUMMARY | ~2019-10-28 | XMS | Encounter Summary ---
Demographics + + + | Address | [address] | | | [place] [address] | + + + | Home Phone [...] Author + + + | Author | [facility] | + + + | Organization | [facility] | + + + | Address | Unknown | + + + | Phone | Unavailable | + + + Support + + +---------+ + | Name | Relationship | Address | Phone | + + +---------+ + | Skyler Todd | ECON | Unknown | | + + +---------+ + Care Team Providers + +------+ + | Care Packing Room Worker Name | Role | Phone | [...] | [address] | [facility], | | | | | Mailcode: [id number] | [place] [address] | | | | | [facility] | [phone] | | | | | [place], [place] | | | | | | [address] | | | | | | [phone] | | | +--------+--------+ + + + [...]
--- OUTSIDE RECORDS SUMMARY | ~2019-10-28 | XMS | Encounter Summary ---
Demographics + + + | Address | [address] | | | [place] [address] | + + + | Home Phone [...] + + + | Author | [facility] | + + + | Organization | [facility] | + + + | Address | Unknown | + + + | Phone | Unavailable | + + + Support + + +---------+ + | Name | Relationship | Address | Phone | + + +---------+ + | Skyler Todd | ECON | Unknown | | + + +---------+ + Care Team Providers + +------+ + | Care Project Manager/Design Manager Name | Role | Phone | + +------+ + | Jerome Young MD | PCP | | + +------+ + Encounter Details +--------+ + + + + | Date | Type | Department | Care Team | Description | +--------+ + + + + | 03/27/ | Orders Only | [facility] Primary Care | Faustina Henao MD | | | 2010 | | at [facility] | [address] | | | | | [address] | Reena Carrasco [place], | | | | | Loop Mailcode: | [place] [address] | | | | | [id number] Physician's | [phone] | | | | | [address] [place], | | | | | | [place] [address] | | | | | | [phone] | | | +--------+ + + + [...]
--- OUTSIDE RECORDS SUMMARY | ~2019-10-28 | XMS | Encounter Summary ---
Demographics + + + | Address | [address] | | | [place] [address] | + + + | Home Phone | | + + + | Preferred Language | Unknown | + + + | Marital Status | Single | + + + | Quaker Affiliation | Unknown | + + + [...] Team Providers + +------+ + | Care Beef Pusher Name | Role | Phone | + +------+ + | Leila Henao MD | PCP | | + +------+ + Reason for Visit + + + | Reason | Comments | + + + | Follow-up visit | | + + + Encounter Details +--------+---------+ + + + | Date | Type | Department | Care Team | Description | +--------+---------+ + + + | 09/20/ | Office | Internal Medicine | Leila Henao MD | HIV (human | | 2009 | Visit | Clinic at [facility] [address] | [address] | immunodeficiency | | | | [address] | Reena Carrasco [place], | virus infection); | | | | Mailcode: [id number] | [place] [address] | Unspecified asthma; | | | | [facility] | [phone] | Hyperlipidemia LDL | | | | [facility] [place] | | goal < 100; Vitamin | | | | [address] | | D deficiency; Hip | | | | [phone] | | pain, bilateral; | | | [...] in this encounter Patient Instructions Patient Instructions Leila Henao MD - 09/20/2010 11:28 AM PSTRESUME BACTRIM OR SEPTRA ON E TABLET DAILY documented in this encounter Progress Notes Leila Henao MD - 09/20/2010 2:35 PM PSTFormatting [...] was seen for initial evaluation in the [facility] HIV [facility] on 09/04/10. At last visit, [...] is nonproductive. He was referred to a university demonstrator who has not yet seen. He continues [...] gait. Labs: Lab Results Component Value Date [id number] 156* 09/04/2010 XM0TZQUQOD 9.0* 09/04/2010 HIVPCR 54 09/04/2010 Assessment and [...] no respiratory distress Plan: f/u with pulmonary LEILA NAVARRO MD acia Hardin Lpn 09/2010 12:05 [...] | | + +---------+ + + | [facility] DEPARTMENT OF | | | | [...]
--- OUTSIDE RECORDS SUMMARY | ~2019-10-28 | XMS | Encounter Summary ---
Demographics + + + | Address | [address] | | | [place] [address] | + + + | Home Phone [...] Team Providers + +------+ + | Care Branch Chief Name | Role | Phone | + [...] | | [address] | Reena Carrasco [place], | Authorization | | | | Mailcode: [id number] | [place] [address] | | | | | Phys[address] | [phone] | | | | | [place], [place] | | | | | | [address] | | | | | | [phone] | | | +--------+ + + + [...]
--- OUTSIDE RECORDS SUMMARY | ~2019-10-28 | XMS | Encounter Summary ---
Demographics + + + | Address | [address] | | | [place] [address] | + + + | Home Phone | | + + + | Preferred Language | Unknown | + + + | Marital Status | Single | + + + | Nondenominational Affiliation | Unknown | + + + [...] Providers + +------+ + | Care Financial Underwriter Name | Role | Phone | + [...] | | [address] | Reena Carrasco [place], | | | | | Mailcode: [id number] | [place] [address] | | | | | Phys[facility] | [phone] | | | | | [place], [place] | | | | | | [address] | | | | | | [phone] | | | +--------+--------+ + + + [...]
--- OUTSIDE RECORDS SUMMARY | ~2019-10-28 | XMS | Encounter Summary ---
Demographics + + + | Address | [address] | | | [place] [address] | + + + | Home Phone [...] Team Providers + +------+ + | Care Hide Buffer Name | Role | Phone | + [...] | immunodeficiency | | | | at [address] | | virus infection) | | | | [address] | | ([facility]) | | | | Loop [place], [place] | | | | | | [address] | | | | | | [phone] | | | +--------+------+ + + + [...] DEPARTMENT OF | [address] | [place] [address] | | | PATHOLOGY | [address] [...] | + + + + + | [facility] | [address] | [place] [address] | | | PATHOLOGY | [address] [...] [facility] | [place] | | [place] [address] | REGIONAL | | [place] [address] | LABORATORY | + + + + + + + + | Performing | Address | City/State/Zipcode | Phone Number | | Organization | | | | + + + + + | [facility] | [address] | [place] [address] | | | LABORATORY | | | [...] DEPARTMENT OF | [address] | [place] [address] | | | PATHOLOGY | [address] [...] [facility] | [address] | [place] [address] | | | DIAGNOSTIC | [address] [...] | | | DEPARTMENT | | | [place] | | | OF | | | [...] | + + + + + | [facility] | [address] | [place] [address] | | | PATHOLOGY | [address] [...] | + + + + + | [facility] | [address] | [place] [address] | | | PATHOLOGY | [address] [...] | + + + + + | [facility] | [address] | [place] [address] | | | PATHOLOGY | [address] [...] | + + + + + | [facility] | [address] | [place] [address] | | | PATHOLOGY | [address] | | | + + + + + documented in this encounter Visit Diagnoses + + | Diagnosis | + + | HIV (human immunodeficiency virus infection) (HCC) Asymptomatic human | | immunodeficiency virus (HIV) infection status | + + documented in this encounter"
--- OUTSIDE RECORDS SUMMARY | ~2019-10-28 | XMS | Encounter Summary ---
Demographics + + + | Address | [address] | | | [place] [address] | + + + | Home Phone [...] Team Providers + +------+ + | Care Sed High School Teacher Name | Role | Phone | [...] | [address] | Reena Carrasco [place], | | | | | Mailcode: [id number] | [place] [address] | | | | | [facility] | [phone] | | | | | [place], [place] | | | | | | [address] | | | | | | [phone] | | | +--------+ + + + [...]
--- OUTSIDE RECORDS SUMMARY | ~2019-10-28 | XMS | Encounter Summary ---
Demographics + + + | Address | [address] | | | [place] [address] | + + + | Home Phone [...] Team Providers + +------+ + | Care Buyers' Agent Name | Role | Phone | + [...] | | [address] | Reena Carrasco [place], | | | | | Mailcode: [id number] | [place] [address] | | | | | [facility] | [phone] | | | | | [place], [place] | | | | | | [address] | | | | | | [phone] | | | +--------+ + + + [...]
--- OUTSIDE RECORDS SUMMARY | ~2019-10-28 | XMS | Encounter Summary ---
Demographics + + + | Address | [address] | | | [place] [address] | + + + | Home Phone [...] Team Providers + +------+ + | Care Laundry Routeman Name | Role | Phone | + [...] | | [address] | Reena Carrasco [place], | | | | | Mailcode: [id number] | [place] [address] | | | | | [facility] | [phone] | | | | | [place], [place] | | | | | | [address] | | | | | | [phone] | | | +--------+ + + + [...]
--- OUTSIDE RECORDS SUMMARY | ~2019-10-28 | XMS | Encounter Summary ---
Demographics + + + | Address | [address] | | | [place] [address] | + + + | Home Phone [...] Author | [facility] | + + + | Organization | [facility] | + + + | Address | Unknown | + + + | Phone | Unavailable | + + + Support + + +---------+ + | Name | Relationship | Address | Phone | + + +---------+ + | Skyler Todd | ECON | Unknown | | + + +---------+ + Care Team Providers + +------+ + | Care Computer Numeric Control Setter Name | Role | Phone | [...] | [address] | Reena Carrasco [place], | | | | | Mailcode: [id number] | [place] [address] | | | | | [facility] | [phone] | | | | | [place], [place] | | | | | | [address] | | | | | | [phone] | | | +--------+ + + + [...]
--- OUTSIDE RECORDS SUMMARY | ~2019-10-28 | XMS | Encounter Summary ---
Demographics + + + | Address | [address] | | | [place] [address] | + + + | Home Phone [...] Team Providers + +------+ + | Care Wheel Tuner Name | Role | Phone | + [...] | immunodeficiency | | | | at [facility] 3rd Floor | | virus infection) | | | | [address] | | ([facility]) | | | | Loop [place], [place] | | | | | | [address] | | | | | | [phone] | | | +--------+------+ + + + [...] | + + + + + | [facility] DEPARTMENT | [address] | [place] [address] | | | PATHOLOGY | [address] [...] | + + + + + | [facility] | [address] | [place] [address] | | | PATHOLOGY | [address] [...] [facility] | [place] | | [place] [address] [facility] | REGIONAL | | [place] [address] | LABORATORY | + + + + + + + + | Performing | Address | City/State/Zipcode | Phone Number | | Organization | | | | + + + + + | [facility] | [address] | [place] [address] | | | LABORATORY | | | [...] At | + + + | [facility] [address] [facility]) [place] | [place] | | [place] [address] | REGIONAL | | [place] [address] | LABORATORY | + + + + + + + + | Performing | Address | City/State/Zipcode | Phone Number | | Organization | | | | + + + + + | [facility] | [address] | [place] [address] | | | LABORATORY | | | [...] At | + + + | [facility] ([facility]) [place] | [place] | | [place] [address] | REGIONAL | | [place] [address] | LABORATORY | + + + + + + + + | Performing | Address | City/State/Zipcode | Phone Number | | Organization | | | | + + + + + | [facility] | [address] | [place] [address] | | | LABORATORY | | | [...] [facility] ([address] [facility]) [place] | [place] | | [place] [address] | REGIONAL | | [place] [address] | LABORATORY | + + + + + + + + | Performing | Address | City/State/Zipcode | Phone Number | | Organization | | | | + + + + + | [facility] | [address] | [place] [address] | | | LABORATORY | | | [...] | + + + + + | [facility] DEPARTMENT OF | [address] | [place] [address] | | | PATHOLOGY | [address] [...] | | | | | | [address] [facility] [address], | | | | | | [place] [address] | | | | | | [phone] | | | | | | | | | | | | [email or web address], | | | | | | Loyda [...] [facility] | [address] | [place], [place] | | | [facility] | | [address] | | + + + + + [...] [place] | [place] | | [place] [address] [facility] | REGIONAL | | [place] [address] | LABORATORY | + + + + + + + + | Performing | Address | City/State/Zipcode | Phone Number | | Organization | | | | + + + + + | [facility] | [address] [facility] | [place] [address] | | | LABORATORY | | | [...] + + + + | [facility] | Smart Panel | [place] [address] | | | GENETICS LABS | [address] | | | | | AVE. [...] DEPARTMENT OF | [address] | [place] [address] | | | PATHOLOGY | [address] [...] | | | DEPARTMENT | | | [place] | | | OF | | | [...] DEPARTMENT OF | [address] | [place] [address] | | | PATHOLOGY | [address] [...] | + + + + + | [facility] | [address] | [place] [address] | | | PATHOLOGY | [address] | | | + + + + + documented in this encounter Visit Diagnoses + + | Diagnosis | + + | HIV (human immunodeficiency virus infection) (HCC) Asymptomatic human | | immunodeficiency virus (HIV) infection status | + + documented in this encounter"
--- OUTSIDE RECORDS SUMMARY | ~2019-10-28 | XMS | Encounter Summary ---
Demographics + + + | Address | [address] | | | [place] [address] | + + + | Home Phone [...] Providers + +------+ + | Care Computer Graphic Designer Name | Role | Phone | + [...] | immunodeficiency | | | | [address] | Reena Carrasco [place], | virus infection); | | | | Mailcode: [id number] | [place] [address] | Unspecified asthma; | | | | [facility] | [phone] | Hyperlipidemia LDL | | | | [facility] [place] | | goal < 100; Vitamin | | | | [address] | | D deficiency; Hip | | | | [phone] | | pain, bilateral; | | | [...] was seen for initial evaluation in the [facility] on 09/04/10. At last [...] is nonproductive. He was referred to a filler shredder machine who has not yet seen. He continues [...] gait. Labs: Lab Results Component Value Date [id number] 156* 09/04/2010 [id number] 9.0* 09/04/2010 HIVPCR 54 09/04/2010 Assessment and [...] | | + +---------+ + + | [facility] DEPARTMENT OF | | | | [...]
--- OUTSIDE RECORDS SUMMARY | ~2019-10-28 | XMS | Encounter Summary ---
Demographics + + + | Address | [address] | | | [place] [address] | + + + | Home Phone [...] Team Providers + +------+ + | Care Receipt And Report Clerk Name | Role | Phone | [...] | [address] | [address] [place], | medication (young | | | | Mailcode: [id number] | [place] [address] | pt-medication side | | | | [facility] | [phone] | effects) | | | | [place], [place] | | | | | | [address] | | | | | | [phone] | | | +--------+ + + + [...]
--- OUTSIDE RECORDS SUMMARY | ~2019-10-28 | XMS | Clinical Summary ---
Demographics + + + | Address | [address] | | | [place] [address] | + + + | Home Phone [...] Author + + + | Author | [facility] | + + [...] Team Providers + +------+ + | Care Picker Box Operator Name | Role | Phone | + +------+ + | Jerome Young MD | PCP | | + +------+ + Source Comments ROMAN is fully live on both [facility] Ambulatory and [facility] InPatient.[facility] Allergies + + + + + + [...] + + + | Overview: sleep study [facility] | + + + + + | [...] | | | for | | [address] [address] | | | | | | all | | [place], | | | | | | dates | | [place] [address] | | + +--------+ +--------+ + +------+ [...] laverne | | | 1 (Home) | [address] | + +--------+ +--------+ + + Advance Directives + + + + + | Type | Date Recorded | Patient | Explanation | | | | Pull Socket Assembler | | + + + + + | Advance | | | | | Directives and | | | | | Living Will | | | | + + + + + | Power of | | | | | Aws Developer | | | | + + + + +
--- OUTSIDE RECORDS SUMMARY | ~2019-10-28 | XMS | Encounter Summary ---
Demographics + + + | Address | [address] | | | [place] [address] | + + + | Home Phone [...] Providers + +------+ + | Care Gas Brazer Name | Role | Phone | + [...] | | [address] | Reena Carrasco [place], | | | | | Mailcode: [id number] | [place] [address] | | | | | Phys[facility] | [phone] | | | | | [place], [place] | | | | | | [address] | | | | | | [phone] | | | +--------+ + + + [...]
--- OUTSIDE RECORDS SUMMARY | ~2019-10-28 | XMS | Encounter Summary ---
Demographics + + + | Address | [address] | | | [place] [address] | + + + | Home Phone | | + + + | Preferred Language | Unknown | + + + | Marital Status | Single | + + + | Faith Affiliation | Unknown | + + + [...] Team Providers + +------+ + | Care Utility Hand Name | Role | Phone | [...] | | | [address] | [facility], | | | | | Mailcode: [id number] | [place] [address] | | | | | [facility] | [phone] | | | | | [place], [place] | | | | | | [address] | | | | | | [phone] | | | +--------+--------+ + + + [...]
--- OUTSIDE RECORDS SUMMARY | ~2019-10-28 | XMS | Encounter Summary ---
Demographics + + + | Address | [address] | | | [place] [address] | + + + | Home Phone [...] Team Providers + +------+ + | Care Environmental Safety Specialist Name | Role | Phone | [...] | | | [address] | [facility], | | | | | Mailcode: [id number] | [place] [address] | | | | | [facility] | [phone] | | | | | [place], [place] | | | | | | [address] | | | | | | [phone] | | | +--------+--------+ + + + [...]
--- OUTSIDE RECORDS SUMMARY | ~2019-10-28 | XMS | Encounter Summary ---
Demographics + + + | Address | [address] | | | [place] [address] | + + + | Home Phone [...] Team Providers + +------+ + | Care Shirt Operator Name | Role | Phone | [...] | [address] | Reena Carrasco [place], | | | | | Mailcode: [id number] | [place] [address] | | | | | [facility] | [phone] | | | | | [place], [place] | | | | | | [address] | | | | | | [phone] | | | +--------+ + + + [...]
--- OUTSIDE RECORDS SUMMARY | ~2019-10-28 | XMS | Encounter Summary ---
Demographics + + + | Address | [address] | | | [place] [address] | + + + | Home Phone [...] Team Providers + +------+ + | Care Horse Rider Name | Role | Phone | + [...] | immunodefici | [address] | [address] [facility] | | | | | ency virus | [address] | Eben Valles | | | | | (HIV) | Jaleesa Lazcano, | Danilo [place], | | | | | disease | [place] [address] | [place] | | | | | (HCC) | Phone: | [address] | | | | | | [phone] | Phone: | | | | | | Fax: | [phone] | | | | | | [phone] | Fax: | | | | | | | [phone] | +--------+ + + + + + Encounter Details +--------+---------+ + + + | Date | Type | Department | Care Team | Description | +--------+---------+ + + + | 01/01/ | Office | Internal Medicine | Faustina Henao MD | HIV (human | | 2010 | Visit | [facility] [address] | [address] [facility] | immunodeficiency | | | | [address] | [place], | virus infection) | | | | Mailcode: [id number] | [place] [address] | (HCC) (Primary Dx); | | | | [facility] | [phone] | Unspecified asthma; | | | | [place], [place] | | Insomnia; Anxiety | | | | [address] | | state, unspecified; | | | | [phone] | | Hyperlipidemia LDL | | | [...] gait. Labs: Lab Results Component Value Date [id number] 156* 09/04/2010 [id number] 9.0* 09/04/2010 HIVPCR 54 09/04/2010 Lab Results Component Value Date RPR Non-Reactive 09/04/2010 Lab Results Component Value Date CHOL 245 09/04/2010 LDL 142 09/04/2010 HDL 28 09/04/2010 TRI 406 09/04/2010 Lab Results Component Value Date [id number] 31 09/04/2010 Last CBC, CMP reviewed with [...]
--- OUTSIDE RECORDS SUMMARY | ~2019-10-28 | XMS | Encounter Summary ---
Demographics + + + | Address | [address] | | | [place] [address] | + + + | Home Phone [...] Team Providers + +------+ + | Care Beam House Inspector Name | Role | Phone | [...] [facility] | | | | | | [address] | | | | | | Loop Mailcode: | | | | | | [address] Physician's | | | | | | [place], | | | | | | [place] [address] | | | | | | [phone] | | | +--------+ + + + [...] | | + +---------+ + + | [facility] DEPARTMENT OF | | | | | RADIOLOGY | | | | + +---------+ + + documented in this encounter Visit Diagnoses + + | Diagnosis | + + | Hip pain, bilateral Pain in joint, pelvic region and thigh | + + documented in this encounter"
--- OUTSIDE RECORDS SUMMARY | ~2019-10-28 | XMS | Encounter Summary ---
Demographics + + + | Address | [address] | | | [place] [address] | + + + | Home Phone | | + + + | Preferred Language | Unknown | + + + | Marital Status | Single | + + + | Protestant Affiliation | Unknown | + + + [...] Team Providers + +------+ + | Care Outcomes Manager Name | Role | Phone | + +------+ + | Jerome Young MD | PCP | | + +------+ + Encounter Details +--------+ + + + + | Date | Type | Department | Care Team | Description | +--------+ + + + + | 07/01/ | Wind Turbine Sheet Metal Worker | Internal Medicine | Faustina Henao MD | | | 2010 | | [facility] [address] | [address] | | | | | [address] | Reena Carrasco [place], | | | | | Mailcode: [id number] | [place] [address] | | | | | [facility] | [phone] | | | | | [place], [place] | | | | | | [address] | | | | | | [phone] | | | +--------+ + + + [...]
--- OUTSIDE RECORDS SUMMARY | ~2019-10-28 | XMS | Clinical Summary ---
Demographics + + + | Address | [address] | | | [place] [address] | + + + | Home Phone [...] Author + + + | Author | [facility] | + + + [...] Team Providers + +------+ + | Care Fashion Director Name | Role | Phone | + +------+ + | Jerome Young MD | PCP | | + +------+ + Source Comments ROMAN is fully live on both [facility] [place] Allergies + + + + + + [...] + + + | Overview: sleep study [facility] | + + + + + [...] | | | for | | [address] [address] | | | | | | all | | [place], | | | | | | dates | | [place] [address] | | + +--------+ +--------+ + +------+ [...] laverne | | | 1 (Home) | [address] | + +--------+ +--------+ + + Advance Directives + + + + + | Type | Date Recorded | Patient | Explanation | | | | Fashion Patternmaker | | + + + + + | Advance | | | | | Directives and | | | | | Living Will | | | | + + + + + | Power of | | | | | Senior Financial Analyst | | | | + + + + +
--- OUTSIDE RECORDS SUMMARY | ~2019-10-28 | XMS | Encounter Summary ---
Demographics + + + | Address | [address] | | | [place] [address] | + + + | Home Phone [...] Team Providers + +------+ + | Care Rug Scratcher Name | Role | Phone | + [...] [facility] | | | | | | [address] | | | | | | Loop Mailcode: | | | | | | [address] Physician's | | | | | | [place], | | | | | | [place] [address] | | | | | | [phone] | | | +--------+ + + + [...] | | + +---------+ + + | [facility] DEPARTMENT OF | | | | | RADIOLOGY | | | | + +---------+ + + documented in this encounter Visit Diagnoses + + | Diagnosis | + + | Hip pain, bilateral Pain in joint, pelvic region and thigh | + + documented in this encounter"
--- OUTSIDE RECORDS SUMMARY | ~2019-10-28 | XMS | Encounter Summary ---
Demographics + + + | Address | [address] | | | [place] [address] | + + + | Home Phone | | + + + | Preferred Language | Unknown | + + + | Marital Status | Single | + + + | Confucianist Affiliation | Unknown | + + + [...] Team Providers + +------+ + | Care Electrophysiology Nurse Practitioner Name | Role | Phone | + [...] | | [address] | Reena Carrasco [place], | | | | | Mailcode: [id number] | [place] [address] | | | | | [facility] | [phone] | | | | | [place], [place] | | | | | | [address] | | | | | | [phone] | | | +--------+ + + + [...]
[~2019-10-28 01:48] MED LIST changes: +IPRAT-ALBUT 0.5-3 ML INH; +TRUNEB NEBULIZ1 EACH INH
--- OUTSIDE RECORDS SUMMARY | 2019-10-28 01:50 | XMS ---
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 Kodi has no Care Guidelines for this patient. Care History Medical/Surgical 08/31/2019 [facility] CASE MANAGEMENT REFERRAL MADE- PATIENT HAS E[facility]CC[facility] AND NO PCP. 01/11/2019 [facility] - PATIENT HAS AN APT ON 02/25/19 @ 9:00AM TO ESTABLISH CARE WITH DR ARANDA. - CHW AND PATIENT DISCUSSED THE [employer] STEPHEN COTTON DISPATCHER PROCESS. - PATIENT STATED HE MIGHT BE MOVING TO [facility] AND WILL MORE THAN LIKELY LOOK FOR AN EYE PHYSICIAN IN [place] UNTIL HE CAN SWITCH INSURANCE IF NEEDED. E.Kalyn. VISIT COUNT (12 MO.) 5 [facility]. TOTAL 5 NOTE: Visits indicate total known visits. ED/UCC VISIT TRACKING (12 MO.) 10/28/2019 01:48 [facility] [place] TYPE: Emergency COMPLAINT: - CHEST PAIN 08/31/2019 03:46 [facility] [place] TYPE: Emergency COMPLAINT: - SOB DIAGNOSES: - Nicotine dependence, unspecified, uncomplicated - Shortness of breath - Unspecified asthma with (acute) exacerbation 01/08/2019 17:23 [facility] [place] TYPE: Emergency [...] visits to display in this time frame [email or web address]
[2019-10-28] MEDS ORDERED: BACTRIM DS TAB1 EACH PO (02:04)
[2019-10-28] MEDS ORDERED: ODEFSEY TABLET1 EACH PO (02:05)
[2019-10-28] MEDS ORDERED: TIVICAY50 MG PO (02:05)
[2019-10-28] MEDS ORDERED: PREDNISONE20 MG PO (02:11)
[2019-10-28] MEDS ORDERED: NORCO 5-325 TA1 EACH PO (02:11)
--- NOTE | 2019-10-28 15:52 | EKG ---
[facility] [address] [facility] [place] [address] Signed Sinus tachycardia Otherwise normal ECG When compared with ECG of 31-AUG-2019 03:51, No significant change was found Confirmed by KEMAL FIGUEROA DO ([id number]) on 10/28/2019 3:52:08 PM Electronically Signed By: KEMAL FIGUEROA DO 10/28/19 1552 PATIENT NAME: SLAVA AMES Electrocardiogram DATE OF : 67 PHYSICIAN: KEMAL FIGUEROA DO REPORT #: [id number] REPORT IS CONFIDENTIAL AND NOT TO BE RELEASED WITHOUT AUTHORIZATION
== END 2019-10-28 02:24 | disposition home or self-care (01) ==
LOC: ED 01:48
DX: B02.9 Zoster without complications (principal); B20 Human immunodeficiency virus [HIV] disease; F17.200 Nicotine dependence, unspecified, uncomplicated
CPT/HCPCS: 93005; 93010; 99284-25; A9270; J7512

== ENCOUNTER 2020-06-05 10:25 | Emergency (ER) | payer OTHER ==
[~2020-06-05] VITALS: Ht 172.7 cm; Wt 102.1 kg
--- OUTSIDE RECORDS SUMMARY | ~2020-06-05 | XMS | Encounter Summary ---
Demographics + + + | Address | [address] | | | [place] [address] | + + + | Home Phone | | + + + | Preferred Language | Unknown | + + + | Marital Status | Single | + + + | Yazdanism Affiliation | Unknown | + + + | Race | Unknown | + + + | Ethnic Group | Unknown | + + + Author + + + | Author | [facility] | | | and [place] | + + + | Organization | [facility] | | | and [place] | + + + | Address | Unknown | + + + | Phone | Unavailable | + + + Support + + +---------+ + | Name | Relationship | Address | Phone | + + +---------+ + | Serge Muñoz | ECON | Unknown | | + + +---------+ + | Sharmaine Velasco | ECON | Unknown | | + + +---------+ + Care Team Providers + +------+ + | Care Automation Controls Engineer Name | Role | Phone | + +------+ + PCP | Unavailable | + +------+ + Encounter Details +--------+ + + + + | Date | Type | Department | Care Team | Description | +--------+ + + + + | 07/23/ | Abstract | [place] [facility] | DATA MIGRATION ALEXANDER | | | 2011 | | Conversion Location | SR | | | | | [address] | | | | | | [place], [place] | | | | | | [address] | | | | | | [phone] | | | +--------+ + + + + Social History + +-------+ +--------+------+ | Tobacco Use | Types | Packs/Day | Years | Date | | | | | Used | | + +-------+ +--------+------+ | Never Assessed | | | | | + +-------+ +--------+------+ + + + | Sex Assigned at | Date Recorded | | | | + + + | Not on file | | + + + documented as of this encounter Last Filed Vital Signs + + + + + | Vital Sign | Reading | Time Taken | Comments | + + + + + | Blood Pressure | 116/86 | 05/31/2011 12:00 AM | | | | | PDT | | + + + + + | Pulse | - | - | | + [...] + + + + | Weight | 91.2 kg (201 lb) | 05/31/2011 12:00 AM | | | | | PDT | | + + + + + | Height | 172.7 cm (5' 8") | 10/30/2010 12:00 AM | | | | | PST | | + + + + + | Body Mass Index | 30.56 | 10/30/2010 12:00 AM | | | | | PST | | + + + + + documented in this encounter Plan of Treatment Not on filedocumented as of this encounter Visit Diagnoses Not on filedocumented in this encounter
--- OUTSIDE RECORDS SUMMARY | ~2020-06-05 | XMS | Encounter Summary ---
Demographics + + + | Address | [address] | | | [place] [address] | + + + | Home Phone | | + + + | Preferred Language | Unknown | + + + | Marital Status | Single | + + + | Temple Affiliation | Unknown | + + + | Race | White | + + + | Ethnic Group | Not or | + + + Author + + + | Author | [facility] | + + + | Organization | [facility] | + + + | Address | Unknown | + + + | Phone | Unavailable | + + + Support + + +---------+ + | Name | Relationship | Address | Phone | + + +---------+ + | Skyler Todd | ECON | Unknown | | + + +---------+ + Care Team Providers + +------+ + | Care Getter Operator Name | Role | Phone | + +------+ + | Jerome Young MD | PCP | | + +------+ + Reason for Visit + + + | Reason | Comments | + + + | Follow-up visit | | + + + Office Visit - E/M Services (Routine) +--------+--------+ + + + + | Status | Reason | Specialty | Diagnoses / | Referred By | Referred To | | | | | Procedures | Contact | Contact | +--------+--------+ + + + + | Closed | | Internal | Diagnoses | Hector, | Juliano | | | | Medicine | Human | Jerome Dukes MD | MD Faustina | | | | | immunodefici | [address] | [address] [facility] | | | | | ency virus | [address] | Eben Valles | | | | | (HIV) | Jaleesa Lazcano, | Danilo [place], | | | | | disease | [place] [address] | [place] | | | | | (HCC) | Phone: | [address] | | | | | | [phone] | Phone: | | | | | | Fax: | [phone] | | | | | | [phone] | Fax: | | | | | | | [phone] | +--------+--------+ + + + + Encounter Details +--------+---------+ + + + | Date | Type | Department | Care Team | Description | +--------+---------+ + + + | 01/20/ | Office | Internal Medicine | Faustina Henao MD | HIV (human | | 2011 | Visit | [facility] [address] | [address] | immunodeficiency | | | | [address] | [place], | virus infection) | | | | Mailcode: [id number] | [place] [address] | ([facility]); | | | | [facility] | [phone] | Hyperlipidemia LDL | | | | [place], [place] | | goal < 100; Anxiety | | | | [address] | | state, unspecified | | | | [phone] | | | +--------+---------+ + + + Social History [...] + + + | Blood Pressure | 110/72 | 01/21/2012 10:51 AM | | | | | PDT | | + + + + + | Pulse | 88 | 01/21/2012 10:51 AM | | | | | PDT | | + + + + + | Temperature | 36.7 C (98 F) | 01/21/2012 10:51 AM | | | | | PDT [...] + + + + | Weight | 94.7 kg (208 lb 11.2 | 01/21/2012 10:51 AM | | | | oz) | PDT | | + + + + + | Height | - | - | | + + + + + | Body Mass Index | 31.73 | 02/12/2011 9:28 AM | | | | | PDT | | + + + + + documented in this encounter Progress Notes Faustina Henao MD - 01/21/2012 12:03 PM PDTFormatting of this note might be different from t he original. 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 darunavir (PREZISTA) 400 mg Oral Tablet Take 2 Tabs by mouth once daily with breakfast. Take with food and Norvir (ritonavir). emtricitabine-tenofovir (TRUVADA) 200-300 mg Oral Tablet Take 1 Tab by mouth once daily . FLUTICASONE PROPIONATE (FLOVENT INHL) Inhale 2 Puffs [...] hr Take 1 Tab by mouth once daily. pravastatin 20 mg Oral Tablet Take 1 Tab by mouth once daily at bedtime. Ritonavir (NORVIR) 100 mg Oral Tablet Take 100 mg by mouth once daily. Take with food a nd Darunavir. zolpidem 10 mg Oral Tablet Take 1 Tab by mouth once daily at bedtime as needed for slee p. Chief Complaint Patient presents with Follow-up visit History of Present Illness: Pavan is a 46 y.o. male with history of above who presents fo r follow up consultation of his HIV disease. He was last seen for f/u in the [facility] on 02/12/2011. Since the last visit, Pavan has been generally stable. He was seen in an outside ED 2 wee ks ago for symptoms of RUQ/epigastric pain associated with nausea and vomiting. He was gina leobardo with a slurry and iv injection with immediate relief. He had abdominal US without signs of gall bladder or duct abnormalities. He was started on some type of antacid which he has taken for the past 2 weeks. He has had no significant discomfort since the ED visit. Pavan has missed 4 doses of his antiretroviral therapy during the past 4 weeks. The missed doses occurred at the time of his acute GI symptoms. He takes his HIV regimen once daily b ut not at a consistent time. He sometimes takes it in the am and sometimes at night. I hav e recommended he take it at approximately the same time each day with food. He plans to sta rt taking his meds with his pm meal. We also dicussed that antacids can somewhat block the absorption of his darunavir. I have suggested he stop the antacids if he is no longer havng any abdominal symptoms. He is tolerating this regimen well. He is due for restaging labs t sara. Immunizations are up to date. Had recent PPD which was negative. Establishing with new PCP at [facility]. Pavan is otherwise stable. He denies fevers, chills, night sweats, headache, change in vi brett, odynophagia, cough, shortness of breath, chest pain, abdominal pain, nausea, vomiting, diarrhea, peripheral paresthesias, weight loss or rashes. Reviewed social and family history and changes were updated in Epic. Continues to smoke ab out 1 ppd. Uses medical MJ for "arthritis pain in knees." Smokes meth intermittently. Last use 01/09/12. Physical Examination: BP 110/72 | Pulse 88 | Temp (Src) 36.7 C (98 F) (Oral) | Wt 94.666 kg (208 lb 11.2 oz) General: He is an alert, overweight man in NAD. Skin: No rash or petechiae. Lymph nodes: No significant cervical, supraclavicular or axillary adenopathy appreciated. HEENT: EOMI. PERRL. Conjunctivae pink. Sclera anicteric. Oropharynx: no oral hairy leukop isaias, thrush or exudates. Mucous membranes are moist. Upper dentures. Neck: Supple. Back: Normal stature, no spinal tenderness. Lungs: Clear to auscultation bilaterally with normal respiratory effort. Cardiac: Regular rhythm, normal rate. No murmur, gallop auscultated. Abdomen: Protuberant, nontender. No hepatosplenomegaly or masses palpated. Extremities: No clubbing or edema. Neurologic: Alert and oriented x3. Normal gait. Labs: Lab Results Component Value Date [id number] 321 08/27/2011 [id number] 10 08/27/2011 HIVPCR <48 01/11/2011 Lab Results Component Value Date RPR Non-Reactive 09/04/2010 Lab Results Component Value Date CHOL 173 01/10/2011 LDL 95 01/10/2011 HDL 41 01/10/2011 TRI 185 01/10/2011 Lab Results Component Value Date [id number] 31 09/04/2010 Last CBC, CMP reviewed with [...] the development of drug resistant virus. He is in no need of prophylactic therapy at this time. VITAMIN D, 25-HYDROXY, SERUM, LIPID SET (TRIG, T CHOL, HDL, CALC LDL), CBC, WITH DIFFERENTIAL, COMPLETE METABOLIC SET (NA,K,CL,CO2,BUN,CREAT,GLUC,CA,AST,ALT,BILI TOTAL,ALK PHOS,ALB,PROT TOTAL), HIV QUANTITATIVE PCR, PLASMA, CD4 (T CELL), BLOOD, RPR SERUM I will contact patient by phone with results. 272.4CV Hyperlipidemia LDL goal < 100 Plan: on pravastatin. 300.00 Anxiety state, unspecified Plan: stable Substance abuse Plan: Discussed health risks of meth. Also do not see indication for medical marijuana. Patient remains overweight and MJ will interfere with weight loss and activity level. Patie nt also aware of health risks of tobacco use but not ready to quit at this time. I asked patient during visit to return to clinic in 4 months for routine follow up, sooner if acute issue arises. FAUSTINA NAVARRO MD nay Reddy MA - 01/21/2012 10:51 AM PDTRoomed patient for Physician visit. Blood pressure, pul se, tobacco history, allergies, and weight checked. Pain level assessed. Medication review completed. Health Maintenance reviewed P M PDTdocumented in this encounter Plan of Treatment Not on filedocumented as of this encounter Results RPR SERUM (01/21/2012 12:27 PM PDT) + [...] + + + | [facility] Justin | JUSTIN | | [facility] [place] [address] | REGIONAL | | [place] [address] | LABORATORY | + + + + + + + + | Performing | Address | City/State/Zipcode | Phone Number | | Organization | | | | + + + + + | [facility] | [address] | [place] [address] | | | LABORATORY | | | [...] | [facility] | [address] | [place] [address] | | | PATHOLOGY | [address] [...] HIV QUANT | Reportable Range: | | [facility] | | | INTERPRETAT | 48-10,000,000 HIV-1 [...] | + + + + + | [facility] | [address] | [place] [address] | | | DIAGNOSTIC | [address] [...] | | | DEPARTMENT | | | [place] | | | OF | | | [...] | + + + + + | [facility] | [address] | [place] [address] | | | PATHOLOGY | [address] [...] | + + + + + | [facility] | [address] | [place] [address] | | | PATHOLOGY | [address] [...] | + + + + + | [facility] | [address] | [place] [address] | | | PATHOLOGY | [address] [...] | + + + + + | [facility] | [address] | [place] [address] | | | PATHOLOGY | [address] | | | + + + + + documented in this encounter Visit Diagnoses + + | Diagnosis | + + | HIV (human immunodeficiency virus infection) (HCC) Asymptomatic human | | immunodeficiency virus (HIV) infection status | + + | Hyperlipidemia LDL goal < 100 Other and unspecified hyperlipidemia | + + | Anxiety state, unspecified | + + documented in this encounter
--- OUTSIDE RECORDS SUMMARY | ~2020-06-05 | XMS | Encounter Summary ---
Demographics + + + | Address | [address] | | | [place] [address] | + + + | Home Phone | | + + + | Preferred Language | Unknown | + + + | Marital Status | Single | + + + | Sikhism Affiliation | Unknown | + + + | Race | White | + + + | Ethnic Group | Not or | + + + Author + + + | Author | [facility] | + + + | Organization | [facility] | + + + | Address | Unknown | + + + | Phone | Unavailable | + + + Support + + +---------+ + | Name | Relationship | Address | Phone | + + +---------+ + | Skyler Todd | ECON | Unknown | | + + +---------+ + Care Team Providers + +------+ + | Care Guest Service Host Name | Role | Phone | + +------+ + | Jerome Young MD | PCP | | + +------+ + Reason for Visit + + + | Reason | Comments | + + + | Refill Request | | + + + Encounter Details +--------+ + + + + | Date | Type | Department | Care Team | Description | +--------+ + + + + | 09/23/ | Telephone | Internal Medicine | Pema Ayala MD | Refill Request | | 2011 | | [facility] [address] | | | | | | [address] | | | | | | Mailcode: [id number] | | | | | | [facility] [address] | | | | | | [place], [place] | | | | | | [address] | | | | | | [phone] | | | +--------+ + + + [...]
--- OUTSIDE RECORDS SUMMARY | ~2020-06-05 | XMS | Encounter Summary ---
Demographics + + + | Address | [address] | | | [place] [address] | + + + | Home Phone | | + + + | Preferred Language | Unknown | + + + | Marital Status | Single | + + + | Gnosticism Affiliation | Unknown | + + + | Race | Unknown | + + + | Ethnic Group | Unknown | + + + Author + + + | Author | [facility] | | | and [place] | + + + | Organization | [facility] | | | and [place] [...] Team Providers + +------+ + | Care Tobacco Wrapping Machine Tender Name | Role | Phone | + +------+ + | Jerome Young MD | PCP | | + +------+ + Encounter Details +--------+ + + + + | Date | Type | Department | Care Team | Description | +--------+ + + + + | 05/16/ | Emergency | [facility] | Matheus Adam, | Stomatitis; | | 2018 | | [facility] | MD [address] | Thrush, oral; | | | | EMERGENCY CENTER | [place], [place] | HIV positive (HCC); | | | | [address] | [address] | Skin pustule | | | | [place], [place] | | | | | | [address] | | | | | | [phone] | | | +--------+ + + + + Social History + +-------+ +--------+------+ | Tobacco Use | Types | Packs/Day | Years | Date | | | | | Used | | + +-------+ +--------+------+ | Current Every Day | | 1 | | | | Smoker | | | | | + +-------+ [...] + + + | Blood Pressure | 133/81 | 05/16/2018 2:53 PM | | | | | PDT | | + + + + + | Pulse | 109 | 05/16/2018 2:53 PM | | | | | PDT | | + + + + + | Temperature | - | - | | + + + + + | Respiratory Rate | 18 | 05/16/2018 2:53 PM | | | | | PDT | | + + + + + | Oxygen Saturation | - | - | | + + + + + | Inhaled Oxygen | - | - | | | Concentration | | | | + + + + + | Weight | 96.8 kg (213 lb 6.6 | 05/16/2018 2:53 PM | | | | oz) | PDT | | + + + + + | Height | - | - | | + + + + + | Body Mass Index | 32.45 | 07/22/2017 10:30 AM | | | | | PDT | | + + + + + documented in this encounter Medications at Time of Discharge + + + +---------+ + + | Medication | Sig | Dispensed | Refills | Start | End Date | | | | | | Date | | + + + +---------+ + + | albuterol 90 | Inhale 2 puffs into | | 0 | 03/04/20 | | | mcg/puff inhaler | the lungs every 4 | | | 17 | | | | (four) hours as | | | | | | | needed for Wheezing. | | | | | + + + +---------+ + + | Albuterol Sulfate | AERS; 2 puffs | | 0 | 07/23/20 | | | (PROAIR HFA IN) | inhaled every 4 | | | 12 | | | | hours as needed for | | | | | | | shortness of breath | | | | | + + + +---------+ + + | ALPRAZolam (XANAX) | Take 0.5 mg by mouth | | 0 | 07/23/20 | | | 0.5 mg tablet | Daily. | | | 12 | | + + + +---------+ + + | amoxicillin | three daily | | 0 | 07/23/20 | | | (AMOXIL) 500 MG | | | | 12 | | | capsule | | | | | | + + + +---------+ + + | aspirin (ASPIRIN | Take 81 mg by mouth | | 0 | 07/23/20 | | | LOW DOSE) 81 MG | Daily. | | | 12 | | | tablet | | | | | | + + + +---------+ + + | augmented | Apply to both ears | | 0 | 09/12/20 | | | betamethasone | once daily | | | 10 | | | dipropionate | | | | | | | (DIPROLENE) 0.05 % | | | | | | | ointment | | | | | | + + + +---------+ + + | CALCIUM-VITAMIN D | TABS; 50,000 units | | 0 | 07/23/20 | | | PO | by mouth daily | | | 12 | | + + + +---------+ + + | citalopram | Take 10 mg by mouth | | 0 | 07/23/20 | | | (CELEXA) 10 mg | Daily. | | | 12 | | | tablet | | | | | | + + + +---------+ + + | CLOTRIMAZOLE | SOLN; use as | | 0 | 07/23/20 | | | | directed for left | | | 12 | | | | ear drops | | | | | + + + +---------+ + + | darunavir | Take 600 mg by mouth | | 0 | 09/12/20 | | | (PREZISTA) 600 MG | Daily. | | | 10 | | | tablet | | | | | | + + + +---------+ + + | | Take 200-300 mg by | | 0 | 09/12/20 | | | emtricitabine-tenofo | mouth Daily. | | | 10 | | | vir (TRUVADA) | | | | | | | 200-300 mg per | | | | | | | tablet | | | | | | + + + +---------+ + + | ergocalciferol | Take 50,000 Units by | | 0 | 07/23/20 | | | (VITAMIN D-2) 50,000 | mouth Once a week. | | | 12 | | | units capsule | | | | | | + + + +---------+ + + | fluticasone | 2 puffs inhaled | | 0 | 07/23/20 | | | (FLOVENT HFA) 110 | twice daily | | | 12 | | | mcg/puff inhaler | | | | | | + + + +---------+ + + | | Inhale 1 puff into | | 0 | 03/05/20 | | | fluticasone-vilanter | the lungs daily. | | | 17 | | | ol (BREO ELLIPTA) | | | | | | | 200-25 mcg/puff | | | | | | | inhaler | | | | | | + + + +---------+ + + | | Take 1-2 tablets by | | 0 | 07/25/20 | | | HYDROcodone-acetamin | mouth every 6 (six) | | | 15 | | | ophen (NORCO) 5-325 | hours as needed for | | | | | | mg per tablet | Pain. | | | | | + + + +---------+ + + | metoprolol | Take 25 mg by mouth | | 0 | 07/23/20 | | | succinate | Daily. | | | 12 | | | (TOPROL-XL) 25 mg 24 | | | | | | | hr tablet | | | | | | + + + +---------+ + + | | TABS; 1 to 2 daily | | 0 | 07/23/20 | | | Oxycodone-Acetaminop | | | | 12 | | | hen (PERCOCET PO) | | | | | | + + + +---------+ + + | pravastatin | Take 20 mg by mouth | | 0 | 07/23/20 | | | (PRAVACHOL) 20 mg | nightly. | | | 12 | | | tablet | | | | | | + + + +---------+ + + | pravastatin | Take 20 mg by mouth | | 0 | 07/23/20 | | | (PRAVACHOL) 20 mg | Daily. | | | 12 | | | tablet | | | | | | + + + +---------+ + + | ritonavir (NORVIR) | Take 100 mg by mouth | | 0 | 04/11/20 | | | 100 mg capsule | Daily. | | | 10 | | + + + +---------+ + + | | Take 1 tablet by | | 0 | 07/23/20 | | | sulfamethoxazole-tri | mouth 3 (three) | | | 17 | | | methoprim (BACTRIM | times a week. | | | | | | DS) 800-160 mg per | | | | | | | tablet | | | | | | + + + +---------+ + + | zolpidem (AMBIEN) | Take 10 mg by mouth | | 0 | 07/23/20 | | | 10 mg tablet | nightly as needed. | | | 12 | | + + + +---------+ + + documented as of this encounter ED Charlette Styles ARNP - 05/16/2018 12:47 PM PDT ED Provider Notes by WANDA Mayberry at 05/16/18 1247 Author: WANDA Mayberry Service: Emergency Department Author Type: Nurse Ijeoma radhanilesh Filed: 05/16/18 1446 Date of Service: 05/16/181246 Status: Attested Costume Cutter: WANDA Mayberry (Nurse Practitioner) Cosigner: Matheus Adam DO at 0 05/16/18 1529 Attestation signed by Matheus Adam DO at 05/16/18 1529 I have discussed the treatment and care plan with the midlevel and I agree with the treatme nt and patient management plan as discussed. Procedures [facility] EMERGENCY DEPARTMENT History of Present Illness Patient Identification Pavan Anderson is a 52 y.o. male. Patient information was obtained from patient. History/Exam limitations: None Patient presented to the Emergency Department by: Car PCP: Per Pt None Chief Complaint Chief Complaint Patient presents with Oral Swelling Hx of HIV, x5 days "I can't eat because of the sore, I haven't been on HIV meds for 2 mon ths." Mouth Lesions bottom lip HPI: The patient complains of mouth lesions. Onset of symptoms was five days ago, with a constan t course since that time. He has HIV and has been homeless and off his meds for about a caio h. Denies cough, chest pain, abdominal pain, dysuria, fever, nausea and vomiting. Care prior to arrival consisted of nothing. Past Medical History Diagnosis Date Blurred vision, bilateral Cholelithiasis Chronic mastoiditis COPD (chronic obstructive pulmonary disease) ([facility]) HIV (human immunodeficiency virus infection) ([facility]) Hyperlipidemia Multiple joint pain 05/14/2013 Muscle spasms of neck Neurosyphilis in male Other chronic pain Unspecified visual disturbance Past Surgical History Procedure Laterality Date ERCP N/A 05/24/2015 Procedure: ENDOSCOPIC RETROGRADE CHOLANGIOPANCREATOGRAPHY; Surgeon: Jin Arango MD; Loc ation: [facility]; Service: Gastroenterology; Laterality: N/A; FINGER AMPUTATION Left middle finger amputated tip FISTULA REPAIR SPINE SURGERY TONSILLECTOMY TYMPANOPLASTY No Known Allergies Social History Social History Marital status: Single Spouse name: N/A Number of children: 0 Years of education: N/A Occupational History Not on file. Social History Main Topics Smoking status: Current Every Day Smoker Packs/day: 1.00 Years: 30.00 Types: Cigarettes Smokeless tobacco: Never Used Alcohol use No Drug use: Yes Types: Marijuana Comment: medical card Sexual activity: Not Currently Partners: Male control/ protection: Condom Other Topics Concern Not on file Social History Narrative Local resident , full code, no falls. Family History Problem Relation Age of Onset Other (see comments) Mother adopted Other (see comments) Father adopted ROS Review of Systems Positive for: mouth lesion Constitutional: Negative for: fatigue, night sweats or weight loss Eyes: Negative for: decreased vision or irritated eyes Nose: Negative for: nosebleed Throat: Negative for: mouth sores Cardiovascular/Respiratory: Negative for: chest pain, shortness of breath, wheezing Gastrointestinal: Negative for: abdominal pain, vomiting, diarrhea, bloody stools Genitourinary: Negative for: dysuria, hematuria Musculoskeletal: Negative for: myalgias Skin: Negative for: laceration Neuro and psych: Negative for: fainting, head injury, seizure, trouble walking Endocrine/Heme/Lymph: Negative for: swollen lymph nodes, easy bruising Physical Exam BP (!) 142/92 (BP Location: Left upper arm) | Pulse 118 | Resp 18 | Wt 96.8 kg (213 lb 6 .5 oz) | SpO2 95% | BMI 32.45 kg/m Vital signs reviewed, tachycardic, otherwise unremarkable. General: Alert, in no apparent distress Eyes: Normal inspection, pupils equal and round, non-icteric ENT: External ears normal Nose normal White coating to tongue and buccal mucosa. Superficial erosions to inner lower lip and l eft buccal mucosa. Extensive dental decay. Neck: Normal inspection Supple No meningismus Cardiovascular: Normal rate, rhythm normal No audible murmur Respiratory: Breath sounds normal bilaterally. No cough during exam. Abdomen: Soft, non-tender, non-distended, normal bowel sounds No guarding or rebound : KAREEM Lee was protective signal operations supervisor as I examined his genitals. He has an erythematous pustuole t o distal foreskin at 12o'clock position, approximately 2mm in diameter. No extending erythem a. No edema. Skin: Color normal Warm and dry No rash Neuro: No motor deficit No sensory deficit ED Course Medical Decision Making and Emergency Department Course ED Department Course This patient presents with the chief complaint of Oral Swelling (Hx of HIV, x5 days "I can' t eat because of the sore, I haven't been on HIV meds for 2 months." ) and Mouth Lesions (viki ttom lip ) 2:46 PM Records Reviewed Nursing notes Relevant past medical records AMITA: Care Recommendation: The following guidelines were formulated by the ED Care Guidelines Committee of the [facility] Consistent Care Program on. No controlled substances should be administered in the ED or prescribed from the ED for sub jective pain. Primary Care Provider (PCP) is Akin MUÑOZ at .Notify PCP if giving an y additional narcotics for objective findings. PCP supports enrollment in the Consistent Car e Program. Medical History: HIV, muscle spasms of neck, hyperlipidemia, Tammy, COPD, Chronic mastoridi ts, chronic pain, neurosyphilis in male, blurred vision , abd pain, Acute pancreatitis. Sugrical History: Tonsillectomy, fistula repair, tympanoplasty, ERCP Problem List: The patient is non-compliant with not getting HIV treatment.He was to see Dr.Sunitha Kaity vazquez and has no showed to all his appointments. The last time he was seen was since November 2014. Has had multiple reminders from the office. The patient was to start on steroids. The patient also has syphilis and unclear if he is getting treatment for that too. Has not had any lab work done as instructed including CD4, viral load, RPR. The patient is also homeless and he last was staying at the [facility]. Have him speak with the adult protective caseworker in the emergency room to help coordiate services. The patient should be following up wishameka Dukes for his HIV medications and to follow up o n his last hospitalization at [facility]. Remind the patient that he should be following up with Dr. Dukes the infection diease doctor for his HIV treatment. Pain Management: The patient is not on a pain contract. Patient last time got hydrocodone from a hospitalist from [facility] on his last admit. He got #30 hydrocodone on 05/27/2015. Please have have the patient follow up with his primary care provider before getting any mo re controlled substances. Last documentation was 17. Patient did not show up for this appointment. His adult protective caseworker was notified. Actual visit was 07/17/2017 and ER for cellulitis of right lower extremity. He was admitted f or cellulitis. DDx includes, but is not limited to HIV exacerbation, oral manan, stomatitis vs other. I discussed the differential diagnoses and treatment plan with patient. The patient express es understanding and is agreeable. Will treat with oral slurry and consult infectious diseas e. ED Course as of May 16 1446 Sat May 16, 2018 1258 I spoke with CELINE Hooevr. He requests we treat thrush with fluconazole 200mg daily x 10 days. CBC, CMP, HIV genotype, HIV viral load, CD4 and UA. Patient is to follow up in 1324 I called lab to add HIV genotype, viral load and CD4 as we don't have these available in ED orders. 1405 CMP unremarkable except mildly low albumin 3.2 1406 Patient ambulatory to restroom to give urine sample. Steady gait noted. 1407 CBC reviewed. Normal WBC count. Bands 0.45, atypical lymphocytes 0.17 1410 Patient reports a lesion on his foreskin. KAREEM Lee was protective signal operations supervisor as I examined his ge nitals. He has an erythematous pustuole to distal foreskin at 12o'clock position, approximat maine 2mm in diameter. No extending erythema. No edema. I will treat this with bactroban ointm ent. 1438 UA reviewed. WBC 11-15. Contaminate with 50-100 epi cells. No bacteria. No UTI symptom s. I will not treat for UTI. 1445 I discussed all results, prescriptions and discharge plan with patient. He verbalized understanding and feels ready for discharge home. Patient Vitals for the past 24 hrs: BP Pulse Resp SpO2 Weight 05/16/18 1235 (!) 142/92 118 18 95 % 96.8 kg (213 lb 6.5 oz) Medications fluconazole (DIFLUCAN) tablet 200 mg (200 mg Oral Given 05/16/18 1357) diphenhydrAMINE (BENADRYL) 12.5 mg/5 mL 5 mL, aluminum-magnesium hydroxide-simethicone (MAA LOX) 200-200-20 MG/5ML 5 mL, lidocaine viscous 2 % 5 mL solution (15 mLs Swish & Spit Given 05/16/18 1357) Labs & Radiology Results Laboratory Evaluation Results Procedure Component Value Ref Range Date/Time Urinalysis (reflex to micro) [[id number]] (Abnormal) Collected: 05/16/18 1407 Order Status: Completed Specimen: Urine from Urine, Clean Catch Updated: 05/16/18 142 9 COLOR UA LEATHA CLARITY HAZY Specific [place], UA 1.026 1.002 - 1.030 LEUKOCYTE ESTERASE TRACE (A) NEGATIVE NITRITE NEGATIVE NEGATIVE UROBILINOGEN NORMAL <1.1 mg/dL PROTEIN 100 (A) NEGATIVE mg/dL PH,URINE 6.0 5.0 - 8.0 BLOOD NEGATIVE NEGATIVE KETONES NEGATIVE NEGATIVE mg/dL BILIRUBIN NEGATIVE NEGATIVE GLUCOSE NEGATIVE NEGATIVE mg/dL WBC 11-15 0 - 5 /hpf RBC 3-5 0 - 2 /hpf BACTERIA NONE SEEN NONE SEEN EPITHELIAL 50-100 /lpf Mucus, UA 3+ CBC with differential [[id number]] (Abnormal) Collected: 05/16/181329 Order Status: Completed Specimen: Blood Updated: 05/16/18 1405 WBC 4.20 3.80 - 11.00 K/uL RBC 5.07 4.20 - 5.70 M/uL HGB 14.4 13.2 - 17.0 g/dL HCT 43.7 39.0 - 50.0 % MCV 86.2 80.0 - 100.0 fl MCH 28.4 27.0 - 34.0 pg MCHC 33.0 32.0 - 35.5 g/dL RDW SD 42.9 37 - 53 fl PLT 165 150 - 400 K/uL MPV 9.0 fl DIFF TYPE MANUAL Neutrophils Manual 45 % Bands 11 % Lymphocytes Manual 27 % Atypical Lymphocytes Relative 4 % Monocytes Manual 9 % Eosinophils Manual 4 % Neutrophils Absolute 1.89 (L) 1.90 - 7.40 K/uL Bands Manual 0.46 (H) 0.00 - 0.20 K/uL Lymphocytes Absolute 1.13 1.00 - 3.90 K/uL Atypical Lymphocytes Absolute 0.17 (H) 0.00 K/uL Monocytes Absolute 0.38 0.00 - 0.80 K/uL Eosinophils Absolute 0.17 0.00 - 0.50 K/uL MORPHOLOGY NORMAL RBC MORPH Comprehensive metabolic panel [[id number]] (Abnormal) Collected: 05/16/18 1330 Order Status: Completed Specimen: Blood Updated: 05/16/18 1404 SODIUM 139 135 - 145 mmol/L POTASSIUM 3.7 3.5 - 4.9 mmol/L CHLORIDE 105 99 - 109 mmol/L CO2 26 23 - 32 mmol/L ANION GAP AGAP 10 5 - 20 mmol/L GLUCOSE 115 (H) 65 - 99 mg/dL BUN 18 8 - 25 mg/dL CREATININE 0.94 0.70 - 1.30 mg/dL BUN/CREAT 19 CALCIUM 8.6 8.5 - 10.5 mg/dL TOTAL PROTEIN 8.2 6.3 - 8.2 g/dL Albumin 3.2 (L) 3.6 - 5.0 g/dL GLOBULIN 4.9 1.3 - 4.9 g/dL A/G 0.7 (L) 1.0 - 2.4 TBIL 0.4 0.1 - 1.5 mg/dL ALK PHOS 78 35 - 115 U/L AST 35 10 - 45 U/L ALT 41 10 - 65 U/L EGFR >60 >60 mL/min/1.73m2 T-helper cells (CD4) count [[id number]] Collected: 05/16/18 1352 Order Status: Sent Specimen: Blood Updated: 05/16/18 1401 Radiology and EKG Evaluation Imaging Results None Diagnosis & Disposition ED Diagnoses Final diagnoses Stomatitis Thrush, oral HIV positive (HCC) Skin pustule Disposition: The patient is well appearing and appropriate for discharge home. Vital signs reviewed and I have no concern for acute or emergent processes. I do not feel further work up is necessar y at this time. I discussed my clinical impression and home care instructions as documented in the discharg e paperwork. I advised appropriate follow up and addressed all questions. We discussed the e mergent signs and symptoms that would necessitate a return to ED. They verbalized understand ing and agreed with the discharge plan. ED Disposition ED Disposition Condition Comment Discharge Stable Follow-up Information Follow up With Specialties Details Why Contact Info Abrahan Crowley MD Infectious Diseases Schedule an appointment as soon as possible for a visit For a recheck of today's complaints [address] [facility] [address] Discharge Medications: New Prescriptions FLUCONAZOLE (DIFLUCAN) 200 MG TABLET Take 1 tablet by mouth daily for 10 days. MUPIROCIN (BACTROBAN) 2 % OINTMENT Apply topically daily for 7 days. Apply externally An attending physician has been available for consult during this visit. We have discussed all pertinent information. WANDA Mayberry 05/16/18 1446 Matheus Adam DO 05/16/18 1529 documented in th is encounter Plan of Treatment Not on filedocumented as of this encounter Procedures + +--------+ + + + | Procedure Name | Priori | Date/Time | Associated Diagnosis | Comments | | | ty | | | | + +--------+ + + + | URINALYSIS WITH | Routin | 05/16/2018 | | Results for this | | MICROSCOPIC IF | e | 2:07 PM | | procedure are in the | | INDICATED | | PDT | | results section. | + +--------+ + + + | CD4 T CELL PANEL | Routin | 05/16/2018 | | Results for this | | | e | 1:52 PM | | procedure are in the | | | | PDT | | results section. | + +--------+ + + + | EXTERNAL LAB: CBC | Routin | 05/16/2018 | | Results for this | | | e | 1:30 PM | | procedure are in the | | | | PDT | | results section. | + +--------+ + + + | COMPREHENSIVE | Routin | 05/16/2018 | | Results for this | | METABOLIC PANEL | e | 1:30 PM | | procedure are in the | | | | PDT | | results section. | + +--------+ + + + documented in this encounter Results Urinalysis with Microscopic if Indicated (05/16/2018 2:07 PM PDT) + + + + + + | Component | Value | Ref Range | Performed | Pathologist | | | | | At | Signature | + + + + + + | Color | LEATHA | | EXTERNAL | | | | | | LAB | | + + + + + + | Clarity, | HAZY | | EXTERNAL | | | Urine | | | LAB | | + + + + + + | Specific | 1.026 | 1.002 - 1.030 | EXTERNAL | | | [place], | | | LAB | | | Urine | | | | | + + + + + + | Leukocyte | TRACE (A) | | EXTERNAL | | | Esterase, | | | LAB | | | Urine | | | | | + + + + + + | Nitrite, | NEGATIVE | | EXTERNAL | | | Urine | | | LAB | | + + + + + + | Urobilinoge | NORMAL | mg/dL | EXTERNAL | | | n, Urine | | | LAB | | + + + + + + | Protein, | 100 (A) | mg/dL | EXTERNAL | | | Urine | | | LAB | | + + + + + + | pH, Urine | 6.0 | 5.0 - 8.0 | EXTERNAL | | | | | | LAB | | + + + + + + | Blood, | NEGATIVE | | EXTERNAL | | | Urine | | | LAB | | + + + + + + | Ketones | NEGATIVE | mg/dL | EXTERNAL | | | | | | LAB | | + + + + + + | Bilirubin, | NEGATIVE | | EXTERNAL | | | Urine | | | LAB | | + + + + + + | Glucose, | NEGATIVE | mg/dL | EXTERNAL | | | Urine | | | LAB | | + + + + + + | WBC, UA | 11-15 | 0 - 5 /hpf | EXTERNAL | | | | | | LAB | | + + + + + + | RBC, UA | 3-5 | 0 - 2 /hpf | EXTERNAL | | | | | | LAB | | + + + + + + | Bacteria, | NONE SEEN | | EXTERNAL | | | UA | | | LAB | | + + + + + + | Epithelial | 50-100 | /lpf | EXTERNAL | | | Cells | | | LAB | | + + + + + + | Mucus, | 3+Comment: Testing | | EXTERNAL | | | Urine | performed at [facility] [place] | | LAB | | | | [address];[place] | | | | | | [id number] | | | | + + + + + + + + | Specimen | + + | Urine specimen | | (specimen) | + + + +---------+ + + | Performing | Address | City/State/Zipcode | Phone Number | | Organization | | | | + +---------+ + + | EXTERNAL LAB | | | | + +---------+ + + CD4 T Cell Panel (05/16/2018 1:52 PM PDT) + + + + + + | Component | Value | Ref Range | Performed | Pathologist | | | | | At | Signature | + + + + + + | Absolute | 194 (L)Comment: | /uL | EXTERNAL | | | CD4 ([place] | Reference range: 359 to | | LAB | | | T) Cells | 1519 | | | | + + + + + + | CD4- | 11.4 (L)Comment: | % | EXTERNAL | | | | Reference range: 30.8 to | | LAB | | | | 58.5 | | | | + + + + + + | WBC | 4.3Comment: Reference | x10E3/uL | EXTERNAL | | | | range: 3.4 to 10.8 | | LAB | | + + + + + + | RBC | 5.22Comment: Reference | x10E6/uL | EXTERNAL | | | | range: 4.14 to 5.80 | | LAB | | + + + + + + | Hemoglobin | 15.3Comment: Reference | g/dL | EXTERNAL | | | | range: 13.0 to 17.7 | | LAB | | + + + + + + | PACKED CELL | 47.4Comment: Reference | % | EXTERNAL | | | VOLUME | range: 37.5 to 51.0 | | LAB | | + + + + + + | MCV | 91Comment: Reference | fL | EXTERNAL | | | | range: 79 to 97 | | LAB | | + + + + + + | MCH | 29.3Comment: Reference | pg | EXTERNAL | | | | range: 26.6 to 33.0 | | LAB | | + + + + + + | MCHC, POC | 32.3Comment: Reference | g/dL | EXTERNAL | | | | range: 31.5 to 35.7 | | LAB | | + + + + + + | RDW-CV | 14.4Comment: Reference | % | EXTERNAL | | | | range: 12.3 to 15.4 | | LAB | | + + + + + + | Platelet | 167Comment: Reference | x10E3/uL | EXTERNAL | | | Count | range: 150 to 379 | | LAB | | + + + + + + | % Segmented | 49Comment: Reference | % | EXTERNAL | | | | range: Not Estab. | | LAB | | | Neutrophils | | | | | + + + + + + | Lymphocytes | 39Comment: Reference | % | EXTERNAL | | | Manual | range: Not Estab. | | LAB | | + + + + + + | MONOCYTES | 9Comment: Reference | % | EXTERNAL | | | | range: Not Estab. | | LAB | | + + + + + + | EOS % URINE | 2Comment: Reference | % | EXTERNAL | | | | range: Not Estab. | | LAB | | + + + + + + | Basophils | 1Comment: Reference | % | EXTERNAL | | | %, External | range: Not Estab. | | LAB | | + + + + + + | Neutrophils | 2.1Comment: Reference | x10E3/uL | EXTERNAL | | | , Absolute, | range: 1.4 to 7.0 | | LAB | | | External | | | | | + + + + + + | Absolute | 1.7Comment: Reference | x10E3/uL | EXTERNAL | | | Lymphocytes | range: 0.7 to 3.1 | | LAB | | + + + + + + | Absolute | 0.4Comment: Reference | x10E3/uL | EXTERNAL | | | Monocytes | range: 0.1 to 0.9 | | LAB | | + + + + + + | Absolute | 0.1Comment: Reference | x10E3/uL | EXTERNAL | | | Eosinophils | range: 0.0 to 0.4 | | LAB | | + + + + + + | Basophils, | 0.0Comment: Reference | x10E3/uL | EXTERNAL | | | Absolute | range: 0.0 to 0.2 | | LAB | | + + + + + + | Absolute | 0Comment: Reference | % | EXTERNAL | | | Immature | range: Not Estab. | | LAB | | | Granulocyte | | | | | | s | | | | | + + + + + + | Absolute | 0.0Comment: Reference | x10E3/uL | EXTERNAL | | | Immature | range: 0.0 to 0.1Testing | | LAB | | | Granulocyte | performed at [facility], | | | | | s | [address], [address], | | | | | | [facility] [address] | | | | + + + + + + + + | Specimen | + + | Blood specimen | | (specimen) | + + + +---------+ + + | Performing | Address | City/State/Zipcode | Phone Number | | Organization | | | | + +---------+ + + | EXTERNAL LAB | | | | + +---------+ + + External Lab: CBC (05/16/2018 1:30 PM PDT) + + + + + + | Component | Value | Ref Range | Performed | Pathologist | | | | | At | Signature | + + + + + + | WBC | 4.20 | 3.80 - 11.00 | EXTERNAL | | | | | K/uL | LAB | | + + + + + + | Non- | 5.07 | 4.20 - 5.70 | EXTERNAL | | | Red Blood | | M/uL | LAB | | | Cells | | | | | | Counted | | | | | + + + + + + | Hemoglobin | 14.4 | 13.2 - 17.0 | EXTERNAL | | | | | g/dL | LAB | | + + + + + + | Hematocrit, | 43.7 | 39.0 - 50.0 % | EXTERNAL | | | POC | | | LAB | | + + + + + + | MCV | 86.2 | 80.0 - 100.0 fl | EXTERNAL | | | | | | LAB | | + + + + + + | MCH | 28.4 | 27.0 - 34.0 pg | EXTERNAL | | | | | | LAB | | + + + + + + | MCHC | 33.0 | 32.0 - 35.5 | EXTERNAL | | | | | g/dL | LAB | | + + + + + + | RDW-CV | 42.9 | 37 - 53 fl | EXTERNAL | | | | | | LAB | | + + + + + + | Platelet | 165 | 150 - 400 K/uL | EXTERNAL | | | Count | | | LAB | | | Plasma | | | | | + + + + + + | MPV | 9.0 | fl | EXTERNAL | | | | | | LAB | | + + + + + + | Differentia | MANUAL | | EXTERNAL | | | l Type | | | LAB | | + + + + + + | Segmented | 45 | % | EXTERNAL | | | Neutrophils | | | LAB | | | Manual | | | | | + + + + + + | % Bands | 11 | % | EXTERNAL | | | | | | LAB | | + + + + + + | Lymphocytes | 27 | % | EXTERNAL | | | Manual | | | LAB | | + + + + + + | % Atypical | 4 | % | EXTERNAL | | | Lymphocytes | | | LAB | | + + + + + + | Monocytes | 9 | % | EXTERNAL | | | Manual | | | LAB | | + + + + + + | Eosinophils | 4 | % | EXTERNAL | | | Manual | | | LAB | | + + + + + + | Absolute | 1.89 (L) | 1.90 - 7.40 | EXTERNAL | | | Neutrophils | | K/uL | LAB | | + + + + + + | Bands | 0.46 (H) | 0.00 - 0.20 | EXTERNAL | | | Manual | | K/uL | LAB | | + + + + + + | Absolute | 1.13 | 1.00 - 3.90 | EXTERNAL | | | Lymphocytes | | K/uL | LAB | | + + + + + + | Absolute | 0.17 (H) | K/uL | EXTERNAL | | | Atypical | | | LAB | | | Lymphocytes | | | | | + + + + + + | Absolute | 0.38 | 0.00 - 0.80 | EXTERNAL | | | Monocytes | | K/uL | LAB | | + + + + + + | Absolute | 0.17 | 0.00 - 0.50 | EXTERNAL | | | Eosinophils | | K/uL | LAB | | + + + + + + | RBC | NORMAL RBC MORPHComment: | | EXTERNAL | | | Morphology | RBC AND PLT MORPHOLOGY | | LAB | | | | APPEAR NORMALTesting | | | | | | performed at [facility] | | | | | | [facility];[place], [place] | | | | | | [address] | | | | + + + + + + + + | Specimen | + + | Blood specimen | | (specimen) | + + + +---------+ + + | Performing | Address | City/State/Zipcode | Phone Number | | Organization | | | | + +---------+ + + | EXTERNAL LAB | | | | + +---------+ + + Comprehensive Metabolic Panel (05/16/2018 1:30 PM PDT) + + + + + + | Component | Value | Ref Range | Performed | Pathologist | | | | | At | Signature | + + + + + + | Na | 139 | 135 - 145 | EXTERNAL | | | | | mmol/L | LAB | | + + + + + + | K | 3.7 | 3.5 - 4.9 | EXTERNAL | | | | | mmol/L | LAB | | + + + + + + | Cl | 105 | 99 - 109 mmol/L | EXTERNAL | | | | | | LAB | | + + + + + + | CO2 | 26 | 23 - 32 mmol/L | EXTERNAL | | | | | | LAB | | + + + + + + | Anion Gap | 10 | 5 - 20 mmol/L | EXTERNAL | | | | | | LAB | | + + + + + + | Glucose, | 115 (H) | 65 - 99 mg/dL | EXTERNAL | | | Fasting | | | LAB | | + + + + + + | BUN | 18 | 8 - 25 mg/dL | EXTERNAL | | | | | | LAB | | + + + + + + | Creatinine | 0.94 | 0.70 - 1.30 | EXTERNAL | | | | | mg/dL | LAB | | + + + + + + | BUN/Creatin | 19 | | EXTERNAL | | | ine Ratio | | | LAB | | + + + + + + | Calcium | 8.6 | 8.5 - 10.5 | EXTERNAL | | | | | mg/dL | LAB | | + + + + + + | Protein, | 8.2 | 6.3 - 8.2 g/dL | EXTERNAL | | | Total | | | LAB | | + + + + + + | Albumin | 3.2 (L) | 3.6 - 5.0 g/dL | EXTERNAL | | | | | | LAB | | + + + + + + | Globulin | 4.9 | 1.3 - 4.9 g/dL | EXTERNAL | | | | | | LAB | | + + + + + + | A/G Ratio | 0.7 (L) | 1.0 - 2.4 | EXTERNAL | | | | | | LAB | | + + + + + + | Bilirubin | 0.4 | 0.1 - 1.5 mg/dL | EXTERNAL | | | Total | | | LAB | | + + + + + + | ALP, | 78 | 35 - 115 U/L | EXTERNAL | | | External | | | LAB | | + + + + + + | AST | 35 | 10 - 45 U/L | EXTERNAL | | | | | | LAB | | + + + + + + | ALT | 41 | 10 - 65 U/L | EXTERNAL | | | | | | LAB | | + + + + + + | Estimated | >60Comment: GFR <60: | mL/min/1.73m2 | EXTERNAL | | | GFR | CHRONIC KIDNEY DISEASE, | | LAB | | | | IF FOUND OVER A 3 MONTH | | | | | | PERIOD.GFR <15: KIDNEY | | | | | | FAILURE.FOR | | | | | | AMERICANS, MULTIPLY THE | | | | | | CALCULATED GFR BY | | | | | | 1.210.This eGFR is | | | | | | calculated using the | | | | | | MDRD IDMS traceable | | | | | | equation.Testing | | | | | | performed at [facility] | | | | | [facility];[place], [place] | | | | | | [address] | | | | + + + + + + + + | Specimen | + + | Blood specimen | | (specimen) | + + + +---------+ + + | Performing | Address | City/State/Zipcode | Phone Number | | Organization | | | | + +---------+ + + | EXTERNAL LAB | | | | + +---------+ + + documented in this encounter Visit Diagnoses + + | Diagnosis | + + | Stomatitis Stomatitis and mucositis, unspecified | + + | Thrush, oral Candidiasis of mouth | + + | HIV positive (HCC) Asymptomatic human immunodeficiency virus (HIV) infection status | + + | Skin pustule Unspecified local infection of skin and subcutaneous tissue | + + documented in this encounter Additional Health Concerns + + + + + | Infection | Onset Date | Last Indicated | Resolved Time | + + + + + | Methicillin-resistan | 01/14/2014 | 01/14/2014 | | | t Staphylococcus | | | | | aureus | | | | + + + + + documented as of this encounter
--- OUTSIDE RECORDS SUMMARY | ~2020-06-05 | XMS | Encounter Summary ---
Demographics + + + | Address | [address] | | | [place] [address] | + + + | Home Phone | | + + + | Preferred Language | Unknown | + + + | Marital Status | Single | + + + | Jain Affiliation | Unknown | + + + | Race | Unknown | + + + | Ethnic Group | Unknown | + + + Author + + + | Author | [facility] | | | and [place] | + + + | Organization | [facility] | | | and [place] | [...] Team Providers + +------+ + | Care [employer] Name | Role | Phone | + +------+ + PCP | Unavailable | + +------+ + Encounter Details +--------+ + + + + | Date | Type | Department | Care Team | Description | +--------+ + + + + | 06/11/ | [facility] | [facility] | | | | 2009 | Encounter | [facility] | | | | | | CENTER [address] | | | | | | [place] | | | | | | [id number] | | | | | | [phone] | | | +--------+ + + + [...] + + documented as of this encounter Medications at Time of Discharge [...]
--- OUTSIDE RECORDS SUMMARY | ~2020-06-05 | XMS | Encounter Summary ---
Demographics + + + | Address | [address] | | | [place] [address] | + + + | Home Phone | | + + + | Preferred Language | Unknown | + + + | Marital Status | Single | + + + | Cheondoism Affiliation | Unknown | + + + | Race | Unknown | + + + | Ethnic Group | Unknown | + + + Author + + + | Author | [facility] | | | and [place] | + + + | Organization | [facility] | | | and [place] | [...] Team Providers + +------+ + | Care Ribber Name | Role | Phone | + +------+ + | Jerome oYung MD | PCP | | + +------+ + Encounter Details +--------+ + + + + | Date | Type | Department | Care Team | Description | +--------+ + + + + | 08/19/ | Hospital | [facility] | Flavia No, | Common bile duct | | 2013 - | Encounter | [facility] [address] | MD Mely [address] | stone; Depression | | | | [address] | [place], [place] | with anxiety; Nausea | | 08/22/ | | [place], [place] | [address] | with vomiting; | | 2012 | | [id number] | | Diarrhea; Anxiety; | | | | [phone] | | Abdominal pain, | | | | | | right upper | | | | | | quadrant; HIV (human | | | | | | immunodeficiency | | | | | | virus infection) | | | | | | (HCC); Low back | | | | | | pain; Multiple joint | | | | | | pain; Joint | | | | | | stiffness; Myalgia | +--------+ + + + + Social [...] + + documented as of this encounter Discharge Summaries Anuradha Elmore MD - 08/22/2013 12:53 PM PDT Discharge Summaries by Anuradha Elmore MD at 08/22/13 0422 Author: Anuradha Elmore MD Service: Hospitalist Author Type: Physician Filed: 08/23/13 3631 Date of Service: 08/22/13 6797 Status: Signed Research Coordinator: Anuradha Elmore MD (Physician) Related Notes: Original Note by Anuradha Elmore MD (Physician) filed at 08/22/13 6471 HOSPITALIST DISCHARGE SUMMARY Patient ID: Slava Anderson [id number] 47 y.o. 1965 Admit date: 08/19/2013 Discharge date and time: 08/22/2013 2:30 PM Admitting Physician: Flavia No MD Discharge Physician: ANURADHA ELMORE MD Discharge Diagnoses: Viral gastroenteritis Nausea with vomiting [787.01] Diarrhea [787.91] Abdominal pain, right upper quadrant [789.01] Low back pain [724.2] Myalgia [729.1] Joint stiffness [719.50] Anxiety [300.00] Depression with anxiety [300.4] Multiple joint pain [719.49] Common bile duct stone [574.50] HIV (human immunodeficiency virus infection) [V08] Discharged Condition: Stable for D/c as STATED BELOW. HPI and Hospital Course: 47-year-old male with a past medical history of HIV, hyperlipidemi a, and COPD presented with nausea, vomiting, and abdominal pain. The patient has had nausea, vomiting, abdominal pain, and diarrhea since 5 days prior to admission. He does have a hist ory of HIV and his partner also has similar symptoms. The patient was taking Imodium. Howeve r, he continued to have severe diarrhea. When the patient came to the emergency room, he was found to have mesenteric adenitis on the CAT scan. He felt better after getting medication, so he was sent home. He came up again to the emergency room when his symptoms reappeared. T his time his lipase was found to be high. Ultrasound showed a possible common bile duct obst ruction and his liver function tests were also increased. Dr. Penny from gastroenterology wa s consulted. An MRCP was ordered. As per the MRCP, no significant bile duct dilatation. Dr. Penny recommended EBV and CMV titers. He also recommended supportive therapy. Given the malissa ent's HIV status, Dr. Rucker from infectious disease was consulted. As per Dr. Rucker, the patie nt most likely had viral gastroenteritis. The patient's HIV medications were continued while in the hospital. Symptomatic therapy was given. The patient's symptoms are significantly im proved. Currently he does not have any abdominal pain. He still has diarrhea but it is impro ving, no more nausea and vomiting. The patient was able to tolerate a diet. His liver functi on tests and pancreatic enzymes both decreased. At this time the patient is stable for disch arge. Dr. Rucker recommends starting Bactrim because of his low CD4 count, and I will prescrib e him a 30-day supply of Bactrim for prophylaxis. The patient will need to follow up with Dr Anay Rucker as an outpatient and also with his primary care physician. Discharge Vitals: Filed Vitals: 08/21/13 2324 08/22/13 0327 08/22/13 0826 08/22/13 1202 BP: 129/85 113/75 130/81 150/84 Pulse: 86 80 70 71 Temp: 96.4 F (35.8 C) 96.1 F (35.6 C) 95.7 F (35.4 C) 95.7 F (35.4 C) TempSrc: Oral Axillary Axillary Oral Resp: 16 16 16 16 Height: Weight: SpO2: 94% 93% 95% 94% Discharge Exam: General: Appears comfortable. HEENT: No thrush. Neck: No JVD, Trachea midline. Psych: Alert and oriented x 3. Calm, cooperative. Cardiovascular: Regular rate and rhythm, no murmurs, no palpable thrills. Normal PMI. Respiratory: Clear to auscultation, no wheezing or crackles, breathing non labored. Chest e xpansion equal on both sides. No use of accessory muscles. Gastrointestinal: Soft, non tender, non-distended, positive bowel sounds. No HSM. Musculoskeletal: No edema in bilateral lower extremities. No joint swelling. Skin: Warm and dry. Neurological: Non focal. Motor and sensory grossly intact. Normal co-ordination. LABS: Lab 08/22/1332908/21/1332908/20/1332408/19/13 1409 WBC 4.3 5.0 3.7* -- HGB 13.9 13.3 13.2 -- HCT 41.0 39.7 39.9 -- PLT 175 150 147* -- NEUTOPHILPCT 49.8 -- 50.9 55.5 MONOPCT 6.4 -- 7.8 5.9 Lab 08/22/1332908/21/1332908/20/13324 NA 134* 134* 136 K 4.1 3.7 3.6 CL 106 106 106 CO2 22* 24 25 BUN 12 11 12 CREATININE 0.70 0.74 0.73 CALCIUM -- -- -- PROT 7.3 7.0 6.6 BILITOT 0.3 0.4 0.8 ALKPHOS -- -- -- ALT 123* 179* 245* AST 34 69* 180* GLUCOSE -- -- -- Phosphorus: No results found for this basename: PHOS No components found with this basename: LABALBU:3 Lab 08/22/1332908/21/13329 MG 1.7 1.5* Lab 08/18/13 1315 AMYLASE 129* No results found for this basename: PHART:3,PO2ART:3,OFJ2PBO:3,Y4XAIKJY:3,BEART:[address] 168 hours No results found for this basename: APTT:3,INR:3,PTT:3 in the last 168 hours No results found for this basename: TSH:3,T3FREE:3,FREET4:3 in the last 168 hours No results found for this basename: CKTOTAL:3,TROPONINI:3,TROPONINT:3,CKMBINDEX:[address] 168 hours Results Procedure Component Value Units Date/Time Stool culture [[id number]] Collected:08/20/132014 Specimen Information:Stool / Stool Updated:08/22/13 1012 Specimen Description STOOL Specimen Description Result: Testing performed at [facility];[address] [place] [address] CULTURE Result: NO SALMONELLA, SHIGELLA, CAMPYLOBACTER OR E. COLI 0157 ISOLATED. CULTURE Result: IF A YERSINIA OR VIBRIO IS SUSPECTED, PLEASE CONTACT THE MICRO LAB FOR SPECIAL TESTING. CULTURE Result: IF A SHIGATOXIN PRODUCING ORGANISM IS SUSPECTED, PLEASE CONTACT THE MICRO LAB FOR SPECIAL TESTING. CULTURE Result: Testing performed at [facility], [address] [place] [address] REPORT STATUS 08/22/2013 FINAL Cryptosporidium SMEA [[id number]] Collected:08/20/132033 Specimen Information:Stool / Stool Updated:08/21/13 1501 Specimen Description STOOL Specimen Description Result: Testing performed at [facility];[address] [place] [address] Cryptosporidium Smear, Stool No Cryptosporidium antigen detected by ICA Cryptosporidium Smear, Stool Result: Testing performed at [address] [address] REPORT STATUS 08/21/2013 FINAL Rotavirus antigen, stool [[id number]] Collected:08/20/132034 Specimen Information:Stool Updated:08/21/13 1352 ROTAVIRUS NEGATIVE Giardia antigen [[id number]] Collected:08/20/132033 Specimen Information:Stool / Per Rectum Updated:08/21/13 1350 GIARDIA ANTIGEN NEGATIVE Ova and parasite examination [[id number]] Collected:08/20/132034 Specimen Information:Stool / Stool Updated:08/20/13 2253 Lactoferrin, fecal [[id number]] Collected:08/20/132034 Specimen Information:Stool Updated:08/20/13 2043 C diff toxin by PCR (TAT 3 hr in house) [[id number]] Collected:08/19/13 1605 Specimen Information:Stool / Stool Updated:08/19/13 1708 Toxigenic C Difficile NEGATIVE 027 NAP1 BI 027 NAP1 BI PRESUMPTIVE NEGATIVE Fecal Leukocytes [[id number]] Collected:08/19/13 1605 Specimen Information:Stool / Stool Updated:08/19/13 1649 FECAL WHITE CELLS NO FECAL LEUKOCYTES SEEN Ct Abdomen Pelvis Without Iv Contrast 08/18/2013 HISTORY: 47 year-old male with pain TECHNIQUE: CT through the abdomen and pelvi s. Performed without the administration of IV contrast. Examination performed without enteri c contrast. Prior study for comparison: None FINDINGS: Senior It Business Analyst is unremarkable. Lung bases demonstrate some peripheral basilar scarring-but no discrete lesion, effusion or infiltrate . Bones are without aggressive lesion or fracture. Nonaggressive and degenerative changes n ot uncommon for age. Old rib fractures of the posterior right costal margin such as on image 36 series 2-healed. Soft tissue windows of the abdomen reveal a structurally normal liver and spleen to noncontrast technique. The adrenal glands are normal as is the gallbladder, pa ncreas and Boehler's system. Kidneys without hydronephrosis or inflammatory changes. No caryn cification or dense lesion in evidence. There are a few punctate calcifications over the di stribution of the distal left ureter such as on image 69 series 2 and on image 84, near the left ureteral junction. Tracing the ureter itself was not possible due to poor tissue planes but these measure less than 4 mm. Dense stool with a nonobstructive bowel, colon. Appendix is not distinctly seen. No inguinal hernia, no pelvic fluid collection, no ascites and onl y subthreshold shotty mesenteric and tissue. Pelvis demonstrates no free fluid, no sidewall lymphadenopathy. Normal rectum and pelvic organs. 08/18/2013 High-grade active or inflammatory lesion is not demonstrated, but some possible imaging correlates with pain 1. Dense stool with a nonobstructed colon 2. Some shotty mid mesenteric subthreshold lymph nodes, could be reactive or chronic, consider mesenteric tete itis 3. 2 small sub-4 mm calcifications at least in the region of the distribution of the l eft ureter, without upstream hydronephrosis or inflammatory changes Us Abdomen, Gallbladder 08/19/2013 HISTORY: 47-year-old male with pain TECHNIQUE: Limited abdominal ultrasound, f ocused on the gallbladder, biliary system and adjacent structures. Prior examination for co mparison: None. FINDINGS: Pancreas partially distended by gas, portions the mid body on im age 45 series normal. What is seen of the liver demonstrates Increased echotexture. No fibr osis or focal lesion. No ascites Gallbladder is without evident gallstones. Wall 1.6 mm.No localizing pain or fluid. Common bile duct measures 8 mm. No dilatation of the intra-or extr ahepatic biliary ductal system. 08/19/2013 1. Common bile duct is larger than expected. Source of this is not clear, but is certainly a potential relationship to symptoms. MRCP at the clinically appropriate time s uggested. Mri Abdomen Wo Contrast Mrcp 08/19/2013 SLAVA ANDERSON 1965 MRI ABDOMEN WO CONTRAST MRCP 08/19/2013 8:00 PM INDIC ATION: Abdominal pain, common bile duct stone COMPARISON: Ultrasound, 08/19/13 TECHNIQUE: MRI of abdomen without IV contrast. MRCP protocol. Multiplanar multisequence MRI performed o n 1.5 Radha magnet using standard institution protocol. FINDINGS: The heart is normal in si ze. There is no pericardial or pleural effusion. The lungs are clear. The liver is smooth i n contour. No hepatic mass is demonstrated. There is mild biliary dilation of the left lobe of the liver. The common bile duct is generous in size measuring 9.7 mm in diameter. There i s no filling defect within the common bile duct to suggest a common bile duct stone. The hernández creatic duct is also generous in size measuring 6.6 mm along the uncinate process. More dist ally along the body and tail, several sidebranches are visualized on MRCP. No obvious mass o f the pancreatic head is seen. The spleen is normal in appearance. The adrenals and pancrea s are normal. The kidneys have a normal reniform contour. There is a small cyst in the midpo le of the left kidney on image 21 series 5. There is no portal adenopathy. No ascites is pre sent. There is no mesenteric or retroperitoneal adenopathy. 08/19/2013 1. There is no filling defect in the common bile duct to suggest a stone. Mild prominence of the common bile and pancreatic ducts may be related to a distal stenosis. Gen erous appearance of the main and side branch pancreatic ducts may be related to mild pancrea tic atrophy. Additional consideration of intraductal papillary mucinous tumor is considered unlikely. Disposition: Home or Self Care Patient Instructions: Current Discharge Medication List START taking these medications Details sulfamethoxazole-trimethoprim (BACTRIM DS) 800-160 MG per tablet Take 1 tablet by mouth 3 (three) times a week. Qty: 12 tablet, Refills: 0 CONTINUE these medications which have NOT CHANGED Details ALBUTEROL IN Inhale into the lungs. amitriptyline (ELAVIL) 50 MG tablet Take 1 tablet by mouth nightly. Qty: 30 tablet, Refills: 11 Associated Diagnoses: Multiple joint pain; Joint stiffness; Myalgia aspirin 81 MG chewable tablet Take 81 mg by mouth daily. citalopram (CELEXA) 40 MG tablet Take 1 tablet by mouth daily. Qty: 30 tablet, Refills: 5 Associated Diagnoses: Depression with anxiety clonazePAM (KLONOPIN) 0.5 MG tablet Take 1 tablet by mouth 2 (two) times daily as needed f or Anxiety. Qty: 60 tablet, Refills: 0 Associated Diagnoses: Anxiety cyclobenzaprine (FLEXERIL) 10 MG tablet Take 1 tablet by mouth 2 (two) times daily as need ed for Muscle spasms. Qty: 60 tablet, Refills: 2 Associated Diagnoses: Low back pain Darunavir Ethanolate 800 MG TABS Take 800 mg by mouth daily. Qty: 120 tablet, Refills: 3 emtricitabine-tenofovir (TRUVADA) 200-300 MG per tablet Take 1 tablet by mouth daily. Qty: 120 tablet, Refills: 3 fluticasone (FLOVENT HFA) 220 MCG/ACT inhaler Inhale 1 puff into the lungs 2 (two) times d aily. HYDROcodone-acetaminophen (NORCO) 7.5-325 MG per tablet Take 1 tablet by mouth every 8 (ei ght) hours as needed. Qty: 84 tablet, Refills: 0 Associated Diagnoses: Multiple joint pain; Joint stiffness; Myalgia ondansetron (ZOFRAN) 4 MG tablet Take 1 tablet by mouth 3 (three) times daily as needed fo r Nausea. Qty: 20 tablet, Refills: 0 ritonavir (NORVIR) 100 MG TABS tablet Take 100 mg by mouth daily. Qty: 120 tablet, Refills: 3 tamsulosin (FLOMAX) 0.4 MG capsule Take 1 capsule by mouth daily. Administer [address] the same meal each day. Capsules should be swallowed whole; do not crush, chew, or open Qty: 14 capsule, Refills: 0 Activity: activity as tolerated Diet: regular diet Follow up: Quinton Rucker DO [address] [facility] [address] Schedule an appointment as soon as possible for a visit in 2 weeks WANDA [place] [address] [facility] [address] Discharge took more than 35 minutes, to include final examination, discussion of admission, and preparation of prescriptions, instructions for ongoing care, follow up and dictation of summary. Signed: Anuradha Elmore 08/22/2013 3:53 PM documente d in this encounter Medications at Time of [...] + + documented as of this encounter Progress Notes Conversion Transaction, Provider Unknown - 08/22/2013 1:35 PM PDTFormatting of this note m ight be different from the original. Progress Notes by Alka Browne RN at 08/22/13 7875 Author: Alka Browne RN Service: (none) Author Type: Registered Nurse Filed: 08/22/13 1336 Date of Service: 08/22/131334 Status: Signed Research Coordinator: Alka Browne RN (Registered Nurse) DC instructions and prescriptions provided. IV dc'd. Pt denies questions or concerns at donnie e of dc. [facility] contacted and arrangements made for transport home. Quinton Harkins - 08/22/2013 12:23 PM PDTFormatting of this note might be different from the meaghan lAnay Progress Notes by Quinton Rucker DO at 08/22/13 1223 Author: Quinton Rucker DO Service: (none) Author Type: Physician Filed: 08/22/13 1236 Date of Service: 08/22/13 1223 Status: Signed Research Coordinator: Quinton Rucker DO (Physician) [facility] Service: Infectious Disease Progress Note Hospital Day: LOS: 3 days Post-Op Day: * No surgery found * SUBJECTIVE Patient Summary: 47-year-old male with HIV disease well controlled with Truvada and boosted Prezista, history of recent treatment interruption, presents with abdominal pain, di arrhea, elevated LFTs and elevated pancreatic enzymes. CT scan of the abdomen and pelvis solomon ws mesenteric lymphadenopathy, otherwise unremarkable. Ultrasound and MRCP show mildly dilat ed common bile duct but no obstructing stone. CC: Diarrhea Chart reviewed: No new events. Subjective The patient reports that his abdominal pain has nearly resolved. He still has frequent diar carmen but no nausea or vomiting, and able to eat well. Diarrhea is slowing down. No fevers or chills. ROS No fever, chills sweats. No nausea, vomiting or diarrhea. No rashes or pruritis. No oral pa in. Scheduled Medications amitriptyline 50 mg Oral Nightly aspirin 81 mg Oral Daily citalopram 40 mg Oral Daily darunavir 800 mg Oral Daily emtricitabine-tenofovir 1 tablet Oral Daily fluticasone 1 puff Inhalation BID heparin (porcine) 5,000 Units Subcutaneous Q8H ritonavir 100 mg Oral Daily sulfamethoxazole-trimethoprim 1 tablet Oral Three Times Weekly tamsulosin 0.4 mg Oral Daily Continuous Infusions sodium chloride 110 mL/hr at 08/22/13 1133 PRN Medications acetaminophen, acetaminophen, clonazePAM, cyclobenzaprine, HYDROcodone-acetaminophen, morph ine, morphine, morphine, ondansetron, ondansetron, polyethylene glycol, zolpidem OBJECTIVE Vital Signs: BP 150/84 | Pulse 71 | Temp 95.7 F (35.4 C) (Oral) | Resp 16 | Ht 1.727 m (5' 7.99") | Wt 92.625 kg (204 lb 3.2 oz) | BMI 31.06 kg/m2 | SpO2 94% Temp (24hrs), Av.4 F (35.8 C), Min:95.7 F (35.4 C), Max:97.1 F (36.2 C) Physical Exam Exam: Const: Vitals reviewed. No acute distress Skin: No rashes, no edema ENT: No thrush. Lungs: CTAB, no rales or wheezes Heart: RRR, no murmur Abd: soft, NT, + bowel sounds DATA CBC: Lab Results Component Value Date WBC 4.3 08/22/2013 RBC 4.69 08/22/2013 HGB 13.9 08/22/2013 HCT 41.0 08/22/2013 MCV 87.5 08/22/2013 MCH 29.8 08/22/2013 MCHC 34.0 08/22/2013 RDW 40.7 08/22/2013 PLT 175 08/22/2013 MPV 9.2 08/22/2013 DIFFTYPE AUTOMATED 08/22/2013 CMP: Lab Results Component Value Date NA 134* 08/22/2013 K 4.1 08/22/2013 CL 106 08/22/2013 CO2 22* 08/22/2013 ANIONGAP 10 08/22/2013 GLUF 167* 08/22/2013 BUN 12 08/22/2013 CREATININE 0.70 08/22/2013 BCR 17 08/22/2013 CA 8.5 08/22/2013 PROT 7.3 08/22/2013 ALB 3.8 08/22/2013 GLOB 3.5 08/22/2013 BILITOT 0.3 08/22/2013 ALP 283* 08/22/2013 AST 34 08/22/2013 ALT 123* 08/22/2013 EGFR >60 08/22/2013 Microbiology: No new culture data. PROBLEM LIST Principal Problem: *Abdominal pain, right upper quadrant Active Problems: HIV (human immunodeficiency virus infection) Depression with anxiety Chronic back pain Nausea with vomiting Obesity, unspecified Hypomagnesemia ASSESSMENT & PLAN Patient Active Hospital Problem List: Abdominal pain, right upper quadrant (08/19/2013) symptoms improving, LFTs nearly back to normal and pancreatic enzymes normal as of Octobe r 12. No specific etiology is been identified. CMV serologies still pending. This is not lik maine to be related to his antiretrovirals which were restarted 2 days ago, well tolerated wit h no deterioration in his liver function tests. He most likely had a viral gastroenteritis, similar to his partner's presentation, which should be self-limited. HIV (human immunodeficiency virus infection) (05/14/2013) continue current regimen. This is not likely to be contributing to his acute presentation . He will need a prescription for 30 day supply of trimethoprim-sulfamethoxazole, which is n ow going to be continued until his CD4 count recovers back above 200 again. Disposition: Ready for discharge from infectious diseases standpoint. He has multiple stoo l studies pending, although I am not expecting any positive results at this point. Followup in the ID clinic in 2-[address] Elmore. Code Status: Full Code QUINTON RUCKER DO 08/22/2013 onZi Faulkner Unknown - 08/21/2013 3:34 PM PDT Progress Notes by Salma Yang RN at 08/21/13 6733 Author: Salma Yang RN Service: (none) Author Type: Registered Nurse Filed: 08/21/13 8201 Date of Service: 08/21/130 Status: Signed Research Coordinator: Salma Yang RN (Registered Nurse) Patient continues to have frequent diarrhea, denies nausea, c/o chronic joint pain, denies abdominal pain. Encouraged to avoid eating/drinking dairy products. Restarted Darunavir. Carly iting results of stool sample sent to lab. Ride home will need to be scheduled before discha rge via [employer] phone # [phone], per funeral planner King Fitzgerald will pay bill. Kalyn Leblanc MD - 08/21/2013 1:43 PM PDTFormatting of this note might be different from the or iginal. Progress Notes by Anuradha Elmore MD at 08/21/13 1345 Author: Anuradha Elmore MD Service: (none) Author Type: Physician Filed: 08/21/13 5821 Date of Service: 08/21/131342 Status: Addendum Research Coordinator: Anuradha Elmore MD (Physician) Related Notes: Original Note by Anuradha Elmore MD (Physician) filed at 08/21/13 1516 [facility] Service: Hospitalist Progress Note Hospital Day: LOS: 2 days SUBJECTIVE Events Overnight: Patient continues to have diarrhea and abdominal pain. His nausea and vomiting has improved though. Afebrile overnight, vitals stable. Besides this he denies any headache neck pain ch est pain shortness of breath, dysuria, lower extremity pain or swelling. Patient's partner also has similar symptoms. Scheduled Medications amitriptyline 50 mg Oral Nightly aspirin 81 mg Oral Daily citalopram 40 mg Oral Daily darunavir 800 mg Oral Daily emtricitabine-tenofovir 1 tablet Oral Daily fluticasone 1 puff Inhalation BID heparin (porcine) 5,000 Units Subcutaneous Q8H magnesium sulfate 2 g Intravenous Once ritonavir 100 mg Oral Daily sulfamethoxazole-trimethoprim 1 tablet Oral Three Times Weekly tamsulosin 0.4 mg Oral Daily DISCONTD: amitriptyline 50 mg Oral Nightly Continuous Infusions sodium chloride 110 mL/hr at 08/21/13 0641 PRN Medications acetaminophen, acetaminophen, clonazePAM, cyclobenzaprine, HYDROcodone-acetaminophen, morph ine, morphine, morphine, ondansetron, ondansetron, polyethylene glycol, zolpidem, DISCONTD: clonazePAM OBJECTIVE Vital Signs: BP 106/71 | Pulse 90 | Temp 96.6 F (35.9 C) (Oral) | Resp 18 | Ht 1.727 m (5' 7.99") | Wt 92.625 kg (204 lb 3.2 oz) | BMI 31.06 kg/m2 | SpO2 94% Filed Vitals: 08/20/13 2346 08/21/13 0335 08/21/13 0829 08/21/13 1155 BP: 125/82 142/95 120/100 106/71 Pulse: 93 85 98 90 Temp: 98.1 F (36.7 C) 97.2 F (36.2 C) 96.1 F (35.6 C) 96.6 F (35.9 C) TempSrc: Oral Axillary Oral Oral Resp: 18 18 16 18 Height: Weight: SpO2: 93% 98% 94% 94% Intake/Output Summary (Last 24 hours) at 08/21/13 1343 Last data filed at 08/21/13 0641 Gross per 24 hour Intake 4334 ml Output 200 ml Net 4134 ml General: Appears in discomfort. HEENT: No thrush. Neck: No JVD, Trachea midline. Psych: Alert and oriented x 3. Calm, cooperative. Cardiovascular: Regular rate and rhythm, no murmurs, no palpable thrills. Normal PMI. Respiratory: Clear to auscultation, no wheezing or crackles, breathing non labored. Chest e xpansion equal on both sides. No use of accessory muscles. Gastrointestinal: Soft, some tenderness in upper abdomen, non-distended, positive bowel petar nds. No HSM. Musculoskeletal: No edema in bilateral lower extremities. No joint swelling. Skin: Warm and dry. Neurological: Non focal. Motor and sensory grossly intact. Normal co-ordination. DATA Lab 08/21/1332908/20/135 08/19/13 1409 08/18/13 1315 WBC 5.0 3.7* 4.5 -- HGB 13.3 13.2 14.3 -- HCT 39.7 39.9 43.0 -- PLT 150 147* 165 -- NEUTOPHILPCT -- 50.9 55.5 55.8 MONOPCT -- 7.8 5.9 5.1 Lab 08/21/13 0330 08/20/13 0325 08/19/13 1409 NA 134* 136 139 K 3.7 3.6 3.8 CL 106 106 105 CO2 24 25 25 BUN 11 12 10 CREATININE 0.74 0.73 0.86 CALCIUM -- -- -- PROT 7.0 6.6 7.6 BILITOT 0.4 0.8 0.6 ALKPHOS -- -- -- ALT 179* 245* 329* AST 69* 180* 237* GLUCOSE -- -- -- Phosphorus: No results found for this basename: PHOS No components found with this basename: LABALBU:3 Lab 08/21/13 0330 MG 1.5* Lab 08/18/13 1315 AMYLASE 129* No results found for this basename: PHART:3,PO2ART:3,VWH7SQE:3,R7BSUDQZ:3,BEART:[address] 168 hours No results found for this basename: APTT:3,INR:3,PTT:3 in the last 168 hours No results found for this basename: TSH:3,T3FREE:3,FREET4:3 in the last 168 hours No results found for this basename: CKTOTAL:3,TROPONINI:3,TROPONINT:3,CKMBINDEX:[address] 168 hours Results Procedure Component Value Units Date/Time Stool culture [[id number]] Collected:08/20/132014 Specimen Information:Stool / Stool Updated:08/21/13914 Specimen Description STOOL Specimen Description Result: Testing performed at [facility];[address] [place] [id number] CULTURE CULTURE IN PROGRESS CULTURE Result: Testing performed at [facility], [address] [place] [id number] REPORT STATUS PENDING Ova and parasite examination [[id number]] Collected:08/20/132034 Specimen Information:Stool / Stool Updated:08/20/132252 Cryptosporidium SMEA [[id number]] Collected:08/20/132033 Specimen Information:Stool / Stool Updated:08/20/132251 Rotavirus antigen, stool [[id number]] Collected:08/20/132034 Specimen Information:Stool Updated:08/20/132042 Lactoferrin, fecal [[id number]] Collected:08/20/132034 Specimen Information:Stool Updated:08/20/132042 Giardia antigen [[id number]] Collected:08/20/132033 Specimen Information:Stool / Per Rectum Updated:08/20/132041 C diff toxin by PCR (TAT 3 hr in house) [[id number]] Collected:08/19/13 1605 Specimen Information:Stool / Stool Updated:08/19/13 1708 Toxigenic C Difficile NEGATIVE 027 NAP1 BI 027 NAP1 BI PRESUMPTIVE NEGATIVE Fecal Leukocytes [[id number]] Collected:08/19/13 1605 Specimen Information:Stool / Stool Updated:08/19/13 1649 FECAL WHITE CELLS NO FECAL LEUKOCYTES SEEN Ct Abdomen Pelvis Without Iv Contrast 08/18/2013 HISTORY: 47 year-old male with pain TECHNIQUE: CT through the abdomen and pelvi s. Performed without the administration of IV contrast. Examination performed without enteri c contrast. Prior study for comparison: None FINDINGS: Senior It Business Analyst is unremarkable. Lung bases demonstrate some peripheral basilar scarring-but no discrete lesion, effusion or infiltrate . Bones are without aggressive lesion or fracture. Nonaggressive and degenerative changes n ot uncommon for age. Old rib fractures of the posterior right costal margin such as on image 36 series 2-healed. Soft tissue windows of the abdomen reveal a structurally normal liver and spleen to noncontrast technique. The adrenal glands are normal as is the gallbladder, pa ncreas and Boehler's system. Kidneys without hydronephrosis or inflammatory changes. No caryn cification or dense lesion in evidence. There are a few punctate calcifications over the di stribution of the distal left ureter such as on image 69 series 2 and on image 84, near the left ureteral junction. Tracing the ureter itself was not possible due to poor tissue planes but these measure less than 4 mm. Dense stool with a nonobstructive bowel, colon. Appendix is not distinctly seen. No inguinal hernia, no pelvic fluid collection, no ascites and onl y subthreshold shotty mesenteric and tissue. Pelvis demonstrates no free fluid, no sidewall lymphadenopathy. Normal rectum and pelvic organs. 08/18/2013 High-grade active or inflammatory lesion is not demonstrated, but some possible imaging correlates with pain 1. Dense stool with a nonobstructed colon 2. Some shotty mid mesenteric subthreshold lymph nodes, could be reactive or chronic, consider mesenteric tete itis 3. 2 small sub-4 mm calcifications at least in the region of the distribution of the l eft ureter, without upstream hydronephrosis or inflammatory changes Us Abdomen, Gallbladder 08/19/2013 HISTORY: 47-year-old male with pain TECHNIQUE: Limited abdominal ultrasound, f ocused on the gallbladder, biliary system and adjacent structures. Prior examination for co mparison: None. FINDINGS: Pancreas partially distended by gas, portions the mid body on im age 45 series normal. What is seen of the liver demonstrates Increased echotexture. No fibr osis or focal lesion. No ascites Gallbladder is without evident gallstones. Wall 1.6 mm.No localizing pain or fluid. Common bile duct measures 8 mm. No dilatation of the intra-or extr ahepatic biliary ductal system. 08/19/2013 1. Common bile duct is larger than expected. Source of this is not clear, but is certainly a potential relationship to symptoms. MRCP at the clinically appropriate time s uggested. Mri Abdomen Wo Contrast Mrcp 08/19/2013 SLAVA ANDERSON 1965 MRI ABDOMEN WO CONTRAST MRCP 08/19/2013 8:00 PM INDIC ATION: Abdominal pain, common bile duct stone COMPARISON: Ultrasound, 08/19/13 TECHNIQUE: MRI of abdomen without IV contrast. MRCP protocol. Multiplanar multisequence MRI performed o n 1.5 Radha magnet using standard institution protocol. FINDINGS: The heart is normal in si ze. There is no pericardial or pleural effusion. The lungs are clear. The liver is smooth i n contour. No hepatic mass is demonstrated. There is mild biliary dilation of the left lobe of the liver. The common bile duct is generous in size measuring 9.7 mm in diameter. There i s no filling defect within the common bile duct to suggest a common bile duct stone. The hernández creatic duct is also generous in size measuring 6.6 mm along the uncinate process. More dist ally along the body and tail, several sidebranches are visualized on MRCP. No obvious mass o f the pancreatic head is seen. The spleen is normal in appearance. The adrenals and pancrea s are normal. The kidneys have a normal reniform contour. There is a small cyst in the midpo le of the left kidney on image 21 series 5. There is no portal adenopathy. No ascites is pre sent. There is no mesenteric or retroperitoneal adenopathy. 08/19/2013 1. There is no filling defect in the common bile duct to suggest a stone. Mild prominence of the common bile and pancreatic ducts may be related to a distal stenosis. Gen erous appearance of the main and side branch pancreatic ducts may be related to mild pancrea tic atrophy. Additional consideration of intraductal papillary mucinous tumor is considered unlikely. LEM LIST Principal Problem: *Abdominal pain, right upper quadrant Active Problems: HIV (human immunodeficiency virus infection) Depression with anxiety Chronic back pain Nausea with vomiting Obesity, unspecified ASSESSMENT/ PLAN Abdominal pain: Appreciate recommendations from Dr. Rucker and Dr. Penny. MRCP does not show any common bile duct obstruction. High likelihood that this is vital gastroenteritis. EBV and CMV pending. We will continue supportive management with intravenous fluids we will giv e IV morphine as needed for pain and IV Zofran as needed for nausea or vomiting. LFT's and lipase improved. Stool studies pending. We will check liver function tests daily. HIV : discussed case with Dr. Rucker. Plan to continue his HIV medications. Depression: continue home medications. Restart celexa today. Chronic back pain: we will give morphine as required. Oral Stella added. Hypomagnesemia: replete DVT prophylaxis with heparin subcutaneous and SCDs. Code Status: Full Code Anuradha Elmore MD 08/21/20131:43 PM Silvia Harkins - 08/21/2013 11:39 AM PDT Progress Notes by Quinton Rucker DO at 08/21/13 3343 Author: Quinton Rucker DO Service: (none) Author Type: Physician Filed: 08/21/13 1204 Date of Service: 08/21/13 1423 Status: Signed Research Coordinator: Quinton Rucker DO (Physician) [facility] Service: Infectious Disease Progress Note Hospital Day: LOS: 2 days Post-Op Day: * No surgery found * SUBJECTIVE Patient Summary: 47-year-old male with HIV disease well controlled with Truvada and boosted Prezista, history of recent treatment interruption, presents with abdominal pain, di arrhea, elevated LFTs and elevated pancreatic enzymes. CT scan of the abdomen and pelvis solomon ws mesenteric lymphadenopathy, otherwise unremarkable. Ultrasound and MRCP show mildly dilat ed common bile duct but no obstructing stone. CC: Diarrhea Chart reviewed: No new events. Subjective The patient has received his nor. Truvada today, but not Prezista. This was discussed with pharmacy and effort will be made to obtain the Prezista as soon as possible. He reports that his abdominal pain is improving but he still has frequent diarrhea, as much as 10 times per day. He just aluminated dairy from his diet last evening. ROS No fever, chills sweats. No nausea, vomiting or diarrhea. No rashes or pruritis. No oral pa in. Scheduled Medications amitriptyline 50 mg Oral Nightly aspirin 81 mg Oral Daily citalopram 40 mg Oral Daily darunavir 800 mg Oral Daily emtricitabine-tenofovir 1 tablet Oral Daily fluticasone 1 puff Inhalation BID heparin (porcine) 5,000 Units Subcutaneous Q8H magnesium sulfate 2 g Intravenous Once ritonavir 100 mg Oral Daily sulfamethoxazole-trimethoprim 1 tablet Oral Three Times Weekly tamsulosin 0.4 mg Oral Daily DISCONTD: amitriptyline 50 mg Oral Nightly Continuous Infusions sodium chloride 110 mL/hr at 08/21/13 0641 PRN Medications acetaminophen, acetaminophen, clonazePAM, cyclobenzaprine, HYDROcodone-acetaminophen, morph ine, morphine, morphine, ondansetron, ondansetron, polyethylene glycol, zolpidem, DISCONTD: clonazePAM OBJECTIVE Vital Signs: BP 120/100 | Pulse 98 | Temp 96.1 F (35.6 C) (Oral) | Resp 16 | Ht 1.727 m (5' 7.99") | Wt 92.625 kg (204 lb 3.2 oz) | BMI 31.06 kg/m2 | SpO2 94% Temp (24hrs), Av.1 F (36.2 C), Min:96.1 F (35.6 C), Max:98.1 F (36.7 C) Physical Exam Exam: Const: Vitals reviewed. No acute distress Skin: No rashes, no edema ENT: No thrush. Lungs: CTAB, no rales or wheezes Heart: RRR, no murmur Abd: soft, NT, + bowel sounds DATA CBC: Lab Results Component Value Date WBC 5.0 08/21/2013 RBC 4.54 08/21/2013 HGB 13.3 08/21/2013 HCT 39.7 08/21/2013 MCV 87.4 08/21/2013 MCH 29.2 08/21/2013 MCHC 33.4 08/21/2013 RDW 42.0 08/21/2013 PLT 150 08/21/2013 MPV 9.0 08/21/2013 DIFFTYPE MANUAL 08/21/2013 CMP: Lab Results Component Value Date NA 134* 08/21/2013 K 3.7 08/21/2013 CL 106 08/21/2013 CO2 24 08/21/2013 ANIONGAP 8 08/21/2013 GLUF 112* 08/21/2013 BUN 11 08/21/2013 CREATININE 0.74 08/21/2013 BCR 15 08/21/2013 CA 8.6 08/21/2013 PROT 7.0 08/21/2013 ALB 3.7 08/21/2013 GLOB 3.3 08/21/2013 BILITOT 0.4 08/21/2013 ALP 340* 08/21/2013 AST 69* 08/21/2013 ALT 179* 08/21/2013 EGFR >60 08/21/2013 Microbiology: No new culture data. PROBLEM LIST Principal Problem: *Abdominal pain, right upper quadrant Active Problems: HIV (human immunodeficiency virus infection) Depression with anxiety Chronic back pain Nausea with vomiting Obesity, unspecified ASSESSMENT & PLAN Patient Active Hospital Problem List: Abdominal pain, right upper quadrant (08/19/2013) Improving. Liver function tests continue to improve and pancreatic enzymes have normalize d. He has restarted his antiretroviral today. I would favor monitoring for another 24 hours with discharge home tomorrow if he continues to do well. I have advised the patient to avoid dairy as this could be contributing to his ongoing diarrhea following what is most likely a viral gastroenteritis. Antonette-Kwan virus and CMV PCR both pending. Additional stool studie s have been sent, ordered by Dr. Penny. HIV (human immunodeficiency virus infection) (05/14/2013) continue current regimen. This is not likely to be contributing to his acute presentation . Disposition: Possible discharge tomorrow if liver tests continue to improve and symptoms a re improving. Code Status: Full Code QUINTON RUCKER DO 08/21/2013 onversion Transaction, Pr ovider Unknown - 08/21/2013 10:54 AM PDT Case Management by Juwan Robertson RN at 08/21/131053 Author: Juwan Robertson RN Service: (none) Author Type: Registered Nurse Filed: 08/21/131053 Date of Service: 08/21/131053 Status: Signed Research Coordinator: Juwan Robertson RN (Registered Nurse) 08/21/131052 Discharge Planning Evaluation Readmission No Living Arrangements Alone Support Systems Friends/neighbors Type of Residence Private residence Independent with ADL's Yes Independent with Mobility Yes Home Care Services No Caregiver after Discharge No Mental Status Oriented Anticipated Discharge Plan Post Acute Care Needs None at this time Plan communicated to patient/family Yes Resources Financial concerns No Transportation issues Yes (Taxi to home.) Patient/Family concerns No Prescription Plan Yes (Covers OP medications.) onver brett Transaction, Provider Unknown - 08/21/2013 2:45 AM PDT Progress Notes by Alisha Stark RN at 08/21/13244 Author: Alisha Stark RN Service: (none) Author Type: Registered Nurse Filed: 08/21/13246 Date of Service: 08/21/13244 Status: Signed Research Coordinator: Alisha Stark RN (Registered Nurse) Pt has been medicated for abd pain x2, pain relieved, pt sleeping. Pt continues to have ep isodes of diarrhea, stool sample sent to lab, results pending. Pt has good appetatite with no reports of nausea or vomiting. Continuing to monitor. onver brett Transaction, Provider Unknown - 08/20/2013 6:50 PM PDT Progress Notes by Nathalie Reyna RN at 08/20/131849 Author: Nathalie Reyna RN Service: (none) Author Type: Registered Nurse Filed: 08/20/131849 Date of Service: 08/20/131849 Status: Signed Research Coordinator: Nathalie Reyna RN (Registered Nurse) Explained importance of Heparin injections to patient. Refused dose tonight. Will pass on t o next shift to continue to offer medication as ordered. onver brett Transaction, Provider Unknown - 08/20/2013 6:13 PM PDT Progress Notes by Nathalie Reyna RN at 08/20/131812 Author: Nathalie Reyna RN Service: (none) Author Type: Registered Nurse Filed: 08/20/131813 Date of Service: 08/20/131812 Status: Signed Research Coordinator: Nathalie Reyna RN (Registered Nurse) Dr. Rucker contacted to see if patient needs to be on isolation. Dr. Rucker stated he does not at this time. aher, Juventino Duarte MD - 08/20/2013 4:38 PM PDTFormatting of this note might be different from t he original. Progress Notes by Juventino Penny IV, MD at 08/20/131637 Author: Juventino Penny IV, MD Service: (none) Author Type: Physician Filed: 08/20/131655 Date of Service: 08/20/131637 Status: Signed Research Coordinator: Juventino Penny IV, MD (Physician) [facility] Service: Gastroenterology Progress Note Hospital Day: LOS: 1 day Post-Op Day: * No surgery found * SUBJECTIVE Patient Summary: diarrhea, abnormal LFT, earlier N/V, HIV+ Events Overnight: Nausea essentially resolved but still persists with frequent non-bl oody diarrhea. Claims pain not a prominent feature at this time. Able to tolerate diet. Has not been in contact with partner to know if his diarrhea persists. Scheduled Medications amitriptyline 50 mg Oral Nightly emtricitabine-tenofovir 1 tablet Oral Daily heparin (porcine) 5,000 Units Subcutaneous Q8H influenza trivalent-split vaccine 0.5 mL Intramuscular Once Immunization LORazepam 0.5 mg Intravenous Once pneumococcal 23-valent vaccine 0.5 mL Intramuscular Once Immunization ritonavir 100 mg Oral Daily sulfamethoxazole-trimethoprim 1 tablet Oral Three Times Weekly Continuous Infusions sodium chloride 110 mL/hr at 08/20/13 1228 PRN Medications acetaminophen, acetaminophen, clonazePAM, morphine, morphine, morphine, ondansetron, ondans etron, polyethylene glycol, zolpidem OBJECTIVE Vital Signs: BP 144/82 | Pulse 100 | Temp 96.9 F (36.1 C) (Axillary) | Resp 18 | Ht 1.727 m (5' 7.99 ") | Wt 92.625 kg (204 lb 3.2 oz) | BMI 31.06 kg/m2 | SpO2 96% Temp: [96.7 F (35.9 C)-99.1 F (37.3 C)] 96.9 F (36.1 C) (08/20 1525) BP: (116-144)/(72-91) 144/82 mmHg (08/20 1525) Heart Rate: [89-103] 100 (08/20 1525) Resp: [18-19] 18 (08/20 1525) SpO2: [91 %-98 %] 96 % (08/20 1525) Height: [172.7 cm (5' 7.99")] 172.7 cm (5' 7.99") (08/19 1753) Weight: [92.625 kg (204 lb 3.2 oz)] 92.625 kg (204 lb 3.2 oz) (08/19 1753) BMI (Calculated): [31.1] 31.1 (08/19 1753) Physical Exam Vitals reviewed. Constitutional: He is oriented to person, place, and time. He appears well-developed. No di stress. Pulmonary/Chest: Effort normal and breath sounds normal. Abdominal: Soft. Bowel sounds are normal. He exhibits no distension and no mass. There is t enderness (less tenderness). There is no rebound and no guarding. Neurological: He is alert and oriented to person, place, and time. Skin: He is not diaphoretic. Psychiatric: He has a normal mood and affect. His behavior is normal. Judgment and thought content normal. DATA CBC: Lab Results Component Value Date WBC 3.7* 08/20/2013 RBC 4.54 08/20/2013 HGB 13.2 08/20/2013 HCT 39.9 08/20/2013 MCV 87.9 08/20/2013 MCH 29.1 08/20/2013 MCHC 33.1 08/20/2013 RDW 41.1 08/20/2013 PLT 147* 08/20/2013 MPV 9.0 08/20/2013 DIFFTYPE AUTOMATED 08/20/2013 CMP: Lab Results Component Value Date NA 136 08/20/2013 K 3.6 08/20/2013 CL 106 08/20/2013 CO2 25 08/20/2013 ANIONGAP 9 08/20/2013 GLUF 129* 08/20/2013 BUN 12 08/20/2013 CREATININE 0.73 08/20/2013 BCR 16 08/20/2013 CA 8.6 08/20/2013 PROT 6.6 08/20/2013 ALB 3.6 08/20/2013 GLOB 3.0 08/20/2013 BILITOT 0.8 08/20/2013 ALP 344* 08/20/2013 AST 180* 08/20/2013 ALT 245* 08/20/2013 EGFR >60 08/20/2013 U/A: Lab Results Component Value Date COLORU YELLOW 08/19/2013 CLARITYU CLEAR 08/19/2013 NITRITE NEGATIVE 08/19/2013 UROBILINOGEN 0.2 08/19/2013 PHUR 5.5 08/19/2013 BILIRUBINUR NEGATIVE 08/19/2013 Amylase: Lab Results Component Value Date AMYLASE 129* 08/18/2013 Lipase: Lab Results Component Value Date LIPASE 630* 08/20/2013 Results for SLAVA ANDERSON ( ) as of 08/20/2013 16:43 Ref. Range 04/23/2013 22:20 08/18/2013 13:15 08/19/2013 14:09 08/20/2013 03:25 ALBUMIN Latest Range: 3.6-5.0 g/dL 3.9 3.3 (L) 3.3 (L) 3.6 GLOBULIN Latest Range: 1.3-4.9 g/dL 4.0 4.2 4.3 3.0 TBIL Latest Range: 0.1-1.5 mg/dL 0.2 0.3 0.6 0.8 ALKALINE PHOSPHATASE Latest Range: 35-115 U/L 85 205 (H) 359 (H) 344 (H) AST Latest Range: 10-45 U/L 16 81 (H) 237 (H) 180 (H) ALT Latest Range: 10-65 U/L 28 144 (H) 329 (H) 245 (H) AMYLASE Latest Range: 25-115 U/L 129 (H) LIPASE Latest Range: 73-393 U/L 1632 (H) 496 (H) 630 (H) C diff toxin by PCR (TAT 3 hr in house) [[id number]] Collected:08/19/13 1605 Updated:08/19/13 1708 Specimen Type:Stool Specimen Source:Stool Toxigenic C Difficile NEGATIVE Fecal Leukocytes [[id number]] Collected:08/19/13 1605 Updated:08/19/13 1649 Specimen Type:Sto ol Specimen Source:Stool FECAL WHITE CELLS NO FECAL LEUKOCYTES SEEN MRI abdomen wo contrast MRCP [[id number]] Resulted:08/19/132008 Order Status:Completed Updat ed:08/19/132014 Narrative: SLAVA ANDERSON 1965 MRI ABDOMEN WO CONTRAST MRCP 08/19/2013 8:00 PM INDICATION: Abdominal pain, common bile duct stone COMPARISON: Ultrasound, 08/19/13 TECHNIQUE: MRI of abdomen without IV contrast. MRCP protocol. Multiplanar multisequence MRI performed on 1.5 Radha magnet using standard institution protocol. FINDINGS: The heart is normal in size. There is no pericardial or pleural effusion. The ashkan gs are clear. The liver is smooth in contour. No hepatic mass is demonstrated. There is mild biliary dila tion of the left lobe of the liver. The common bile duct is generous in size measuring 9.7 m m in diameter. There is no filling defect within the common bile duct to suggest a common bi le duct stone. The pancreatic duct is also generous in size measuring 6.6 mm along the uncin ate process. More distally along the body and tail, several sidebranches are visualized on M MERCURY CELL CLEANER. No obvious mass of the pancreatic head is seen. The spleen is normal in appearance. The adrenals and pancreas are normal. The kidneys have a normal reniform contour. There is a small cyst in the midpole of the left kidney on image 21 series 5. There is no portal adenopathy. No ascites is present. There is no mesenteric or retroperitoneal adenopathy. Impression: 1. There is no filling defect in the common bile duct to suggest a stone. Mild prominence of the common bile and pancreatic ducts may be related to a distal stenosis. Gene davion appearance of the main and side branch pancreatic ducts may be related to mild pancreat ic atrophy. Additional consideration of intraductal papillary mucinous tumor is considered u nlikely. Abdomen, Gallbladder [[id number]] Resulted:08/19/13 1530 Order Status:Completed Updated:1534 Narrative: HISTORY: 47-year-old male with pain TECHNIQUE: Limited abdominal ultrasound, focused on the gallbladder, biliary system and adj acent structures. Prior examination for comparison: None. FINDINGS: Pancreas partially distended by gas, portions the mid body on image 44 series normal. What is seen of the liver demonstrates Increased echotexture. No fibrosis or focal lesion. No ascites Gallbladder is without evident gallstones. Wall 1.6 mm.No localizing pain or fluid. Common bile duct measures 8 mm. No dilatation of the intra-or extrahepatic biliary ductal s ystem. Impression: 1. Common bile duct is larger than expected. Source of this is not clear, but is certainly a potential relationship to symptoms. MRCP at the clinically appropriate time suggested. LEM LIST Principal Problem: *Abdominal pain, right upper quadrant Active Problems: HIV (human immunodeficiency virus infection) Depression with anxiety Chronic back pain Nausea with vomiting Obesity, unspecified ASSESSMENT & PLAN Acute onset of initial nausea and vomiting with persistent non-bloody diarrhea associated w ith abnormal LFT and pancreatic enzymes with multiple others including his partner with alma lar symptoms. This would clearly be most suggestive of viral gastroenteritis which can also affect liver and pancreas. Does not have clinical acute pancreatitis. No evidence for biliar y obstruction by imaging and does NOT have history of gallstones - told he had gallbladder d ysfunction by HIDA scan few years ago. EBV and CMV could cause LFT and pancreas changes but not typically diarrhea predominant. Another consideration for current clinical picture would be cryptosporidium. Will send add itional stool studies. Recommendations 1. Advance diet as tolerated 2. EBV & CMV titers - pending 3. IV hydration, supportive care 4. Stool for cryptosporidia, giardia, O & P, culture, rotavirus, lactoferrin (inflammatory marker) 5. I will be out of town during day tomorrow, please call me if GI related questions Code Status: Full Code HENRIK PENNY MD 08/20/2013 onversion Trans action, Provider Unknown - 08/20/2013 3:58 PM PDT Progress Notes by Nathalie Reyna RN at 08/20/13 7357 Author: Nathalie Reyna RN Service: (none) Author Type: Registered Nurse Filed: 08/20/13 1601 Date of Service: 08/20/131557 Status: Signed Research Coordinator: Nathalie Reyna RN (Registered Nurse) Patient c/o diarrhea and discussed with Dr. Rucker who stated he is unable to prescribe antid iarrheal meds until it is determined if patient has infection. Informed Dr. Elmore that patient is refusing his SQ Heparin. Stated that was OK. Will continue to offer medication and pass on in report. Kalyn Leblanc MD - 08/20/2013 8:24 AM PDTFormatting of this note might be different from the or iginal. Progress Notes by Anuradha Elmore MD at 08/20/13823 Author: Anuradha Elmore MD Service: Hospitalist Author Type: Physician Filed: 08/20/13 2533 Date of Service: 08/20/13823 Status: Signed Research Coordinator: Anuradha Elmore MD (Physician) [facility] Service: Hospitalist Progress Note Hospital Day: LOS: 1 day SUBJECTIVE Events Overnight: Patient continues to have nausea. He says his vomiting has stopped for now. Feel hungry a nd wants to eat. He has had nausea, vomiting, diarrhea and abdominal pain for 6 days now. And also states that he felt fever on and off for the last 6 days. Besides this he denies a ny headache neck pain chest pain shortness of breath, dysuria, lower extremity pain or swell ing. Patient's partner also has similar symptoms. Scheduled Medications amitriptyline 50 mg Oral Nightly emtricitabine-tenofovir 1 tablet Oral Daily heparin (porcine) 5,000 Units Subcutaneous Q8H influenza trivalent-split vaccine 0.5 mL Intramuscular Once Immunization LORazepam 0.5 mg Intravenous Once LORazepam 0.5 mg Intravenous Once ondansetron 4 mg Intravenous Once pneumococcal 23-valent vaccine 0.5 mL Intramuscular Once Immunization ritonavir 100 mg Oral Daily sodium chloride 1,000 mL Intravenous Once Continuous Infusions sodium chloride 110 mL/hr at 08/19/13 1708 PRN Medications acetaminophen, acetaminophen, clonazePAM, HYDROmorphone, morphine, morphine, morphine, onda nsetron, ondansetron, polyethylene glycol, zolpidem OBJECTIVE Vital Signs: BP 133/91 | Pulse 97 | Temp 99.1 F (37.3 C) (Oral) | Resp 18 | Ht 1.727 m (5' 7.99") | Wt 92.625 kg (204 lb 3.2 oz) | BMI 31.06 kg/m2 | SpO2 96% Filed Vitals: 08/19/13 1906 08/19/13 2333 08/20/13 0342 08/20/13 0746 BP: 129/82 116/74 123/83 133/91 Pulse: 89 103 97 97 Temp: 96.8 F (36 C) 96.8 F (36 C) 96.7 F (35.9 C) 99.1 F (37.3 C) TempSrc: Oral Axillary Axillary Oral Resp: 18 18 18 18 Height: Weight: SpO2: 98% 91% 95% 96% Intake/Output Summary (Last 24 hours) at 08/20/13 0824 Last data filed at 08/20/13 0342 Gross per 24 hour Intake 825.33 ml Output 0 ml Net 825.33 ml General: Appears in discomfort. HEENT: No thrush. Neck: No JVD, Trachea midline. Psych: Alert and oriented x 3. Calm, cooperative. Cardiovascular: Regular rate and rhythm, no murmurs, no palpable thrills. Normal PMI. Respiratory: Clear to auscultation, no wheezing or crackles, breathing non labored. Chest e xpansion equal on both sides. No use of accessory muscles. Gastrointestinal: Soft, some tenderness in upper abdomen, non-distended, positive bowel petar nds. No HSM. Musculoskeletal: No edema in bilateral lower extremities. No joint swelling. Skin: Warm and dry. Neurological: Non focal. Motor and sensory grossly intact. Normal co-ordination. DATA Lab 08/20/13 0325 08/19/13 1409 08/18/13 1315 WBC 3.7* 4.5 5.3 HGB 13.2 14.3 14.0 HCT 39.9 43.0 42.0 PLT 147* 165 172 NEUTOPHILPCT 50.9 55.5 55.8 MONOPCT 7.8 5.9 5.1 Lab 08/20/13 0325 08/19/13 1409 08/18/13 1315 NA 136 139 139 K 3.6 3.8 3.9 CL 106 105 104 CO2 25 25 27 BUN 12 10 15 CREATININE 0.73 0.86 0.90 CALCIUM -- -- -- PROT 6.6 7.6 7.5 BILITOT 0.8 0.6 0.3 ALKPHOS -- -- -- ALT 245* 329* 144* AST 180* 237* 81* GLUCOSE -- -- -- Phosphorus: No results found for this basename: PHOS No components found with this basename: LABALBU:3 No results found for this basename: M in the last 168 hours Lab 08/18/13 1315 AMYLASE 129* No results found for this basename: PHART:3,PO2ART:3,ECB8KJW:3,B1JOFEGQ:3,BEART:[address] 168 hours No results found for this basename: APTT:3,INR:3,PTT:3 in the last 168 hours No results found for this basename: TSH:3,T3FREE:3,FREET4:3 in the last 168 hours No results found for this basename: CKTOTAL:3,TROPONINI:3,TROPONINT:3,CKMBINDEX:[address] 168 hours Results Procedure Component Value Units Date/Time C diff toxin by PCR (TAT 3 hr in house) [[id number]] Collected:08/19/13 160 Specimen Information:Stool / Stool Updated:08/19/13 1708 Toxigenic C Difficile NEGATIVE 027 NAP1 BI 027 NAP1 BI PRESUMPTIVE NEGATIVE Fecal Leukocytes [[id number]] Collected:08/19/13 1605 Specimen Information:Stool / Stool Updated:08/19/13 1649 FECAL WHITE CELLS NO FECAL LEUKOCYTES SEEN Ct Abdomen Pelvis Without Iv Contrast 08/18/2013 HISTORY: 47 year-old male with pain TECHNIQUE: CT through the abdomen and pelvi s. Performed without the administration of IV contrast. Examination performed without enteri c contrast. Prior study for comparison: None FINDINGS: Senior It Business Analyst is unremarkable. Lung bases demonstrate some peripheral basilar scarring-but no discrete lesion, effusion or infiltrate . Bones are without aggressive lesion or fracture. Nonaggressive and degenerative changes n ot uncommon for age. Old rib fractures of the posterior right costal margin such as on image 36 series 2-healed. Soft tissue windows of the abdomen reveal a structurally normal liver and spleen to noncontrast technique. The adrenal glands are normal as is the gallbladder, pa ncreas and Boehler's system. Kidneys without hydronephrosis or inflammatory changes. No caryn cification or dense lesion in evidence. There are a few punctate calcifications over the di stribution of the distal left ureter such as on image 69 series 2 and on image 84, near the left ureteral junction. Tracing the ureter itself was not possible due to poor tissue planes but these measure less than 4 mm. Dense stool with a nonobstructive bowel, colon. Appendix is not distinctly seen. No inguinal hernia, no pelvic fluid collection, no ascites and onl y subthreshold shotty mesenteric and tissue. Pelvis demonstrates no free fluid, no sidewall lymphadenopathy. Normal rectum and pelvic organs. 08/18/2013 High-grade active or inflammatory lesion is not demonstrated, but some possible imaging correlates with pain 1. Dense stool with a nonobstructed colon 2. Some shotty mid mesenteric subthreshold lymph nodes, could be reactive or chronic, consider mesenteric tete itis 3. 2 small sub-4 mm calcifications at least in the region of the distribution of the l eft ureter, without upstream hydronephrosis or inflammatory changes Us Abdomen, Gallbladder 08/19/2013 HISTORY: 47-year-old male with pain TECHNIQUE: Limited abdominal ultrasound, f ocused on the gallbladder, biliary system and adjacent structures. Prior examination for co mparison: None. FINDINGS: Pancreas partially distended by gas, portions the mid body on im age 45 series normal. What is seen of the liver demonstrates Increased echotexture. No fibr osis or focal lesion. No ascites Gallbladder is without evident gallstones. Wall 1.6 mm.No localizing pain or fluid. Common bile duct measures 8 mm. No dilatation of the intra-or extr ahepatic biliary ductal system. 08/19/2013 1. Common bile duct is larger than expected. Source of this is not clear, but is certainly a potential relationship to symptoms. MRCP at the clinically appropriate time s uggested. Mri Abdomen Wo Contrast Mrcp 08/19/2013 SLAVA ANDERSON 1965 MRI ABDOMEN WO CONTRAST MRCP 08/19/2013 8:00 PM INDIC ATION: Abdominal pain, common bile duct stone COMPARISON: Ultrasound, 08/19/13 TECHNIQUE: MRI of abdomen without IV contrast. MRCP protocol. Multiplanar multisequence MRI performed o n 1.5 Radha magnet using standard institution protocol. FINDINGS: The heart is normal in si ze. There is no pericardial or pleural effusion. The lungs are clear. The liver is smooth i n contour. No hepatic mass is demonstrated. There is mild biliary dilation of the left lobe of the liver. The common bile duct is generous in size measuring 9.7 mm in diameter. There i s no filling defect within the common bile duct to suggest a common bile duct stone. The hernández creatic duct is also generous in size measuring 6.6 mm along the uncinate process. More dist ally along the body and tail, several sidebranches are visualized on MRCP. No obvious mass o f the pancreatic head is seen. The spleen is normal in appearance. The adrenals and pancrea s are normal. The kidneys have a normal reniform contour. There is a small cyst in the midpo le of the left kidney on image 21 series 5. There is no portal adenopathy. No ascites is pre sent. There is no mesenteric or retroperitoneal adenopathy. 08/19/2013 1. There is no filling defect in the common bile duct to suggest a stone. Mild prominence of the common bile and pancreatic ducts may be related to a distal stenosis. Gen erous appearance of the main and side branch pancreatic ducts may be related to mild pancrea tic atrophy. Additional consideration of intraductal papillary mucinous tumor is considered unlikely. LEM LIST Principal Problem: *Abdominal pain, right upper quadrant Active Problems: HIV (human immunodeficiency virus infection) Depression with anxiety Chronic back pain Nausea with vomiting Obesity, unspecified ASSESSMENT/ PLAN Abdominal pain: Appreciate recommendations from Dr. Penny. MRCP does not show any common b ile duct obstruction. High likelihood that this is vital gastroenteritis. EBV and CMV pend ing. Due to his HIV status, Dr. Rucker from infectious disease consulted. We will continue tracy pportive management with intravenous fluids we will give IV morphine as needed for pain and IV Zofran as needed for nausea or vomiting. We will check liver function tests and lipase d aily. Even though the lipase is slightly high pancreatitis seems unlikely in this case. HIV : discussed case with Dr. Rucker. He is going to decide if patient needs to be continued on his HIV medications or that will need to be stopped. Depression: continue home medications Chronic back pain: we will give morphine as required DVT prophylaxis with heparin subcutaneous and SCDs. Code Status: Full Code Anuradha Elmore MD 08/20/20138:24 AM onversio n Transaction, Provider Unknown - 08/19/2013 11:09 PM PDTFormatting of this note might be di fferent from the original. Progress Notes by Adrienne Gomez RN at 08/19/132308 Author: Adrienne Gomez RN Service: (none) Author Type: Registered Nurse Filed: 08/19/132310 Date of Service: 08/19/132308 Status: Signed Research Coordinator: Adrienne Gomez RN (Registered Nurse) Patient requested medication for anxiety. Upon entering patient's room to given Clonazepam 0.5mg, patient eyes closed and audible breathing noted. Medication held at this time. Adrienne Gomez RN 08/19/132308 onver brett Transaction, Provider Unknown - 08/19/2013 7:40 PM PDT Progress Notes by Adrienne Gomez RN at 08/19/131939 Author: Adrienne Gomez RN Service: (none) Author Type: Registered Nurse Filed: 08/19/131940 Date of Service: 08/19/131939 Status: Signed Research Coordinator: Adrienne Gomez RN (Registered Nurse) Patient to imaging for MRI Adrienne Gomez RN aitlyn Chopra [facility] - 08/19/2013 5:59 PM PDTFormatting of this note might be different from t he original. Progress Notes by Kaitlyn Cristina RPH at 08/19/131758 Author: Kaitlyn Cristina RPH Service: (none) Author Type: Pharmacist Filed: 08/19/131758 Date of Service: 08/19/131758 Status: Signed Research Coordinator: Kaitlyn Cristina RPH (Pharmacist) Clinical Pharmacy Note - Renal Dose Adjustment Slava Anderson 47 y.o. male Ht Readings from Last 1 Encounters: 08/19/13 1.727 m (5' 7.99") Wt Readings from Last 1 Encounters: 08/19/13 92.625 kg (204 lb 3.2 oz) CREATININE Date Value Range Status 08/19/2013 0.86 0.70 - 1.30 mg/dL Final Testing performed at [facility];[address] [place] [address];[place] [address] CREATININE: 0.86 (08/19/13 1409) Estimated creatinine clearance - Cockcroft-Gault CrCl: 118.6 mL/min Pharmacy to renally adjust medications per Dr. No Plan: No medications will require renal dose adjustment based on patient's current estimate d Crcl. Pharmacy will continue to follow and adjust as appropriate. Pharmacist: Kaitlyn Cristina 08/19/2013 5:59 PM onversio n Transaction, Provider Unknown - 08/19/2013 2:51 PM PDTFormatting of this note might be di fferent from the original. Case Management by LANDY Bella at 08/19/131450 Author: LANDY Bella Service: (none) Author Type: Analog Circuit Designer Filed: 08/19/13 1500 Date of Service: 08/19/131450 Status: Signed Research Coordinator: LANDY Bella (Analog Circuit Designer) CM met with pt at RN's request d/t pt's recent ED visit and failure to obtain Rx's given at last visit (yesterday). Pt states his bf was arrested on the way to the pharmacy to pick u p pt's medication. Pt was coming to this ED to meet [employer] to obtain boyfriend's car keys (pt states he bf was brought to this ED by [employer]), however [employer] did not wait for pt so he checked i n to the ED to be seen. CM educated pt on appropriate use of the ED and the importance of f /u and follow-through with obtaining prescriptions and contacting outpatient providers. Pt reports anxiety resulting from CM's information. Reanna Alfaro MSW Manager Planning docume nted in this encounter H&P Notes Flavia No MD - 08/19/2013 4:29 PM PDTFormatting of this note might be different f rom the original. H&P by Flavia No MD at 08/19/13 6209 Author: Flavia No MD Service: Hospitalist Author Type: Physician Filed: 08/19/13 1716 Date of Service: 08/19/13 9599 Status: Signed Research Coordinator: Flavia No MD (Physician) [facility] Service: Hospitalist Admission History & Physical Pt: Slava Anderson AGE/SEX: 47 y.o. male ROOM: 03/14 PCP: ILIANA KENNY : 1965 TODAY'S DATE: 08/19/2013 Date of Admission: 08/19/2013 Chief Complaint: Abdominal pain History of Present Illness: The patient is a 47 y.o. male with significant past medical history of Past Medical History Diagnosis Date HIV (human immunodeficiency virus infection) Muscle spasms of neck Hyperlipidemia Cholelithiasis COPD (chronic obstructive pulmonary disease) Chronic mastoiditis Multiple joint pain 05/14/2013 Other chronic pain who presents with nausea and vomiting which started 5 days ago. He states that the vomiting was only during the first day but his diarrhea has been persistent. Despite being on imodiu m, he still has gone to move his bowels 4 times today. He also does not have an appetite. He is on medications for his HIV and Dr. Enriquez has been following him. His partner also have the same symptoms. He came to the ED yesterday and was found to have mesenteric adenitis on CT scan. He felt better after getting medications and so he was sent home. Today, he woke up feeling ill again and so he wanted to come back to the ED. Of note, his partner tried to go to the ED first however he did not have a license to drive and is now in [facility]. His lipase w as elevated yesterday and it is lower today but still high. US showed a possible CBD obstruc tion. He does have a hx of gallbladder problems but he was not able to have it operated on b ecause this was about the same time that his HIV was diagnosed and he was too ill for surger y at that time. ROS: (+) nausea, diarrhea, RUQ abdominal pain, decreased appetite, No fevers, chills, fatigue, weight loss, headache, dizziness, focal weakness. No cough, colds, shortness of breath, chest pain, palpitations. Noconstipation, dysuria, frequency, hematuria, hematochezia and melena. PMHx: Past Medical History Diagnosis Date HIV (human immunodeficiency virus infection) Muscle spasms of neck Hyperlipidemia Cholelithiasis COPD (chronic obstructive pulmonary disease) Chronic mastoiditis Multiple joint pain 05/14/2013 Other chronic pain PSHx: Past Surgical History Procedure Date Tonsillectomy Fistula repair Prior To admission Meds: Prior to Admission medications Medication Sig Start Date End Date Taking? Authorizing Provider ALBUTEROL IN Inhale into the lungs. Historical Provider amitriptyline (ELAVIL) 50 MG tablet Take 1 tablet by mouth nightly. 05/14/13 05/14/14 WANDA Cary aspirin 81 MG chewable tablet Take 81 mg by mouth daily. Historical Provider citalopram (CELEXA) 40 MG tablet Take 1 tablet by mouth daily. 05/14/13 WANDA Cary clonazePAM (KLONOPIN) 0.5 MG tablet Take 1 tablet by mouth 2 (two) times daily as needed fo r Anxiety. 08/12/13 09/11/13 WANDA Cary cyclobenzaprine (FLEXERIL) 10 MG tablet Take 1 tablet by mouth 2 (two) times daily as neede d for Muscle spasms. 08/12/13 09/11/13 WANDA Cary Darunavir Ethanolate 800 MG TABS Take 800 mg by mouth daily. 05/19/13 05/19/14 Zita castillo MD emtricitabine-tenofovir (TRUVADA) 200-300 MG per tablet Take 1 tablet by mouth daily. 05/19/14 Zita Enriquez MD fluticasone (FLOVENT HFA) 220 MCG/ACT inhaler Inhale 1 puff into the lungs 2 (two) times da laverne. Historical Provider HYDROcodone-acetaminophen (NORCO) 7.5-325 MG per tablet Take 1 tablet by mouth every 8 (eig ht) hours as needed. 08/12/13 09/09/13 WANDA Cary ondansetron (ZOFRAN) 4 MG tablet Take 1 tablet by mouth 3 (three) times daily as needed for Nausea. 08/18/13 08/25/13 Ashwin Young PA-C ritonavir (NORVIR) 100 MG TABS tablet Take 100 mg by mouth daily. 05/19/13 05/19/14 Zita Enriquez MD tamsulosin (FLOMAX) 0.4 MG capsule Take 1 capsule by mouth daily. Administer 30 minutes aft er the same meal each day. Capsules should be swallowed whole; do not crush, chew, or open 1 Ashwin Young PA-C Medications scheduled: LORazepam 0.5 mg Intravenous Once LORazepam 0.5 mg Intravenous Once ondansetron 4 mg Intravenous Once Allergies: No Known Allergies Family Hx: History reviewed. No pertinent family history. Social Hx: History Substance Use Topics Smoking status: Current Every Day Smoker -- 1.0 packs/day for 30 years Smokeless tobacco: Never Used Alcohol Use: No Objective: Vital Signs: BP 121/72 | Pulse 91 | Temp 97.3 F (36.3 C) (Oral) | Resp 19 | Ht 1.727 m (5' 8") | Wt 92.262 kg (203 lb 6.4 oz) | BMI 30.93 kg/m2 | SpO2 96% Physical Exam: Constitutional: Alert and oriented to person, place and time. Appears well developed and we ll nourished. Appears unkempt but pleasant and cooperative. Body mass index is 30.93 kg/(m^2 ). HEENT: 3mm pupils, dry mucous membranes, pink conjunctivae and anicteric sclerae. No cervic al lymphadenopathy. Cardiovascular: Normal rate and rhythm. Normal heart sounds with S1 and S2. No murmurs, gal lops or rubs. Pulmonary: Patient is able to speak in full sentences. Breath sounds are clear bilaterally. No wheezing or rales. Abdominal: Soft and tender in the RUQ even to moderate pressure. No pressure in the other q uadrants. Bowel sounds are present. No rebound or guarding. No palpable masses. No fluid wav e. Extremities: No edema or cyanosis. Neurological: No focal neurologic signs. Skin: Warm and dry. No rashes or open wounds. Psychiatric: Normal mood and affect. Normal judgment and behavior. Data: Lab 08/19/13 1409 08/18/13 1315 WBC 4.5 5.3 HGB 14.3 14.0 HCT 43.0 42.0 PLT 165 172 NEUTOPHILPCT 55.5 55.8 MONOPCT 5.9 5.1 Lab 08/19/13 1409 08/18/13 1315 NA 139 139 K 3.8 3.9 CL 105 104 CO2 25 27 BUN 10 15 CREATININE 0.86 0.90 CALCIUM -- -- PROT 7.6 7.5 BILITOT 0.6 0.3 ALKPHOS -- -- ALT 329* 144* AST 237* 81* GLUCOSE -- -- Lab 08/18/13 1315 AMYLASE 129* Impression 1. Common bile duct is larger than expected. Source of this is not clear, but is certainly a potential relationship to symptoms. MRCP at the clinically appropriate time sug gested. TIVE CDIFF NEGATIVE FECAL LEUKOCYTES Problem List: Principal Problem: *Abdominal pain, right upper quadrant Active Problems: HIV (human immunodeficiency virus infection) Depression with anxiety Chronic back pain Nausea with vomiting Obesity, unspecified Assessment and Plan: Abdominal pain Nausea and vomiting - MRCP ordered - PRN zofran and morphine - cont IVFs - Dr. Penny consulted - check LFTs, lipase in the AM HIV - hold PO meds for now - ff-up with Dr. Enriquez as scheduled Depression - resume meds once able to take PO Chronic back pain - PRN morphine Obesity - advised re weight loss SCDs and heparin subcutaneous for DVT prophylaxis Patient's old records and labs were reviewed in detail and summarized. More than 70 mins were spent on the review of H/P, imaging and labs, formulation of assessm ent and plan, discussion with the patient/family, staff and providers. Code Status: No Order Primary Care Physician: ILIANA No MD 08/19/2013 5:11 PM documente d in this encounter Consult Notes Quinton Rucker - 08/20/2013 2:08 PM PDT Consult* by Quinton Rucker DO at 08/20/13 3871 Author: Quinton Rucker DO Service: (none) Author Type: Physician Filed: 08/20/13 1532 Date of Service: 08/20/134 Status: Signed Research Coordinator: Quinton Rucker DO (Physician) [facility] Service: Infectious Disease Initial Consult Note Date of Admission: 08/19/2013 Reason for Consultation: Abdominal pain, elevated LFTs and pancreatic enzymes, on antiretr oviral therapy Requesting Physician: Maciej Elmore History Obtained From: patient, chart review CHIEF COMPLAINT: Abdominal pain HISTORY OF PRESENT ILLNESS The patient is a 47 y.o. male with significant past medical history of HIV who recently est ablished care in the community with Dr. Enriquez. He has a remote history of polysubstance abu se but has been clean for 3 years, still using marijuana occasionally. He was diagnosed with HIV in 2005 at which time he had a CD4 count of 2. The patient has been on Truvada with Pre zista/Norvir since 2005 with some treatment interruptions ranging in duration from 3 days to 2 weeks. He has a history of opportunistic infections including shingles, candidiasis, and pneumocystis pneumonia which was associated with a 100 pound weight loss in 2005. He has not had any episodes of hepatitis, meningitis or CMV. At the time that the patient establish ca re, his most recent labs had been collected in September 2012 and it showed a CD4 count of 34 3, the highest ever noted. Viral load is undetectable at that time. At the time of his prese ntation in May however he was off treatment and had a viral load greater than 100,000 copie s. CD4 count had fallen to 251. Treatment was restarted at that time. The patient presented to the emergency department 2 days prior to admission with nausea, vo miting and diarrhea. At that time he had abdominal pain and was noted to have elevated pancr eatic enzyme levels and mildly elevated LFTs. This was felt most likely to be a viral syndro me and the patient was advised to continue on antiretroviral therapy and followup in our off ice. He was afebrile at that time. He returned to the emergency room last evening with worse naeem symptoms and was noted to have increasing LFTs and continually elevated pancreatic enzy mes. He was admitted for supportive care. He has not received any antibiotic therapy. He had a low-grade temp of 99.1 7:00 this morning, otherwise afebrile. The patient reports that he has primarily had diarrhea which is triggered by any oral intak e. His abdominal pain is generalized but does not vary with meals. He has not had any vomiti ng yesterday or today. REVIEW OF SYSTEMS Review of Systems Complete review of the constitutional, ENT, cardiovascular, respiratory, gastrointestinal, genitourinary, integumentary, musculoskeletal, psychiatric, neurologic, heme/lymphatic syste ms is entirely negative except as described above in the history of the present illness. Past Medical History Diagnosis Date HIV (human immunodeficiency virus infection) Muscle spasms of neck Hyperlipidemia Cholelithiasis COPD (chronic obstructive pulmonary disease) Chronic mastoiditis Multiple joint pain 05/14/2013 Other chronic pain Past Surgical History Procedure Date Tonsillectomy Fistula repair No Known Allergies Prescriptions prior to admission Medication Sig Dispense Refill ALBUTEROL IN Inhale into the lungs. amitriptyline (ELAVIL) 50 MG tablet Take 1 tablet by mouth nightly. 30 tablet 11 aspirin 81 MG chewable tablet Take 81 mg by mouth daily. citalopram (CELEXA) 40 MG tablet Take 1 tablet by mouth daily. 30 tablet 5 clonazePAM (KLONOPIN) 0.5 MG tablet Take 1 tablet by mouth 2 (two) times daily as neede d for Anxiety. 60 tablet 0 cyclobenzaprine (FLEXERIL) 10 MG tablet Take 1 tablet by mouth 2 (two) times daily as n eeded for Muscle spasms. 60 tablet 2 Darunavir Ethanolate 800 MG TABS Take 800 mg by mouth daily. 120 tablet 3 emtricitabine-tenofovir (TRUVADA) 200-300 MG per tablet Take 1 tablet by mouth daily. 120 tablet 3 fluticasone (FLOVENT HFA) 220 MCG/ACT inhaler Inhale 1 puff into the lungs 2 (two) time s daily. HYDROcodone-acetaminophen (NORCO) 7.5-325 MG per tablet Take 1 tablet by mouth every 8 (eight) hours as needed. 84 tablet 0 ondansetron (ZOFRAN) 4 MG tablet Take 1 tablet by mouth 3 (three) times daily as needed for Nausea. 20 tablet 0 ritonavir (NORVIR) 100 MG TABS tablet Take 100 mg by mouth daily. 120 tablet 3 tamsulosin (FLOMAX) 0.4 MG capsule Take 1 capsule by mouth daily. Administer 30 minutes after the same meal each day. Capsules should be swallowed whole; do not crush, chew, or op en 14 capsule 0 Scheduled Medications amitriptyline 50 mg Oral Nightly emtricitabine-tenofovir 1 tablet Oral Daily heparin (porcine) 5,000 Units Subcutaneous Q8H influenza trivalent-split vaccine 0.5 mL Intramuscular Once Immunization LORazepam 0.5 mg Intravenous Once LORazepam 0.5 mg Intravenous Once pneumococcal 23-valent vaccine 0.5 mL Intramuscular Once Immunization ritonavir 100 mg Oral Daily sodium chloride 1,000 mL Intravenous Once Continuous Infusions sodium chloride 110 mL/hr at 08/20/13 1228 PRN Medications acetaminophen, acetaminophen, clonazePAM, HYDROmorphone, morphine, morphine, morphine, onda nsetron, ondansetron, polyethylene glycol, zolpidem History reviewed. No pertinent family history. History Social History Marital Status: Significant Other Spouse Name: N/A Number of Children: N/A Years of Education: N/A Occupational History Not on file. Social History Main Topics Smoking status: Current Every Day Smoker -- 1.0 packs/day for 30 years Smokeless tobacco: Never Used Alcohol Use: No Drug Use: Yes Special: Marijuana medical card Sexually Active: Not Currently -- Male partner(s) Control/ Protection: Condom Other Topics Concern Not on file Social History Narrative No narrative on file PHYSICAL EXAM Vital Signs: BP 121/75 | Pulse 96 | Temp 97.8 F (36.6 C) (Axillary) | Resp 18 | Ht 1.727 m (5' 7.99" ) | Wt 92.625 kg (204 lb 3.2 oz) | BMI 31.06 kg/m2 | SpO2 95% Temp (24hrs), Av.4 F (36.3 C), Min:96.7 F (35.9 C), Max:99.1 F (37.3 C) Physical Exam Constitutional: The patient is in no acute distress and appears stated age. Vital signs wer e reviewed as above Head: Normocephalic and atraumatic ENT: Mucous membranes are moist. There is no evidence of thrush. No pharyngeal exudates. Neck: Supple without thyromegaly or meningismus. Heart: Regular rate and rhythm without murmurs gallops or rubs Lungs: Clear to auscultation bilaterally without wheezes rales or rhonchi. Abdomen: Soft, mild diffuse tenderness, more prominent in the epigastric region, bowel soun ds are present, there is no organomegaly or mass Musculoskeletal: There is no gross deformity or active arthritis. Neuro: There are no gross deficits of motor or sensory function Skin: There are no rashes of clinical significance. There are no ulcerations or significant wounds. Extremities: There is no clubbing, cyanosis, or peripheral edema. Psychiatric: The patient attends the examiner without difficulty and affect is appropriate. DATA CBC: Lab Results Component Value Date WBC 3.7* 08/20/2013 RBC 4.54 08/20/2013 HGB 13.2 08/20/2013 HCT 39.9 08/20/2013 MCV 87.9 08/20/2013 MCH 29.1 08/20/2013 MCHC 33.1 08/20/2013 RDW 41.1 08/20/2013 PLT 147* 08/20/2013 MPV 9.0 08/20/2013 DIFFTYPE AUTOMATED 08/20/2013 CMP: Lab Results Component Value Date NA 136 08/20/2013 K 3.6 08/20/2013 CL 106 08/20/2013 CO2 25 08/20/2013 ANIONGAP 9 08/20/2013 GLUF 129* 08/20/2013 BUN 12 08/20/2013 CREATININE 0.73 08/20/2013 BCR 16 08/20/2013 CA 8.6 08/20/2013 PROT 6.6 08/20/2013 ALB 3.6 08/20/2013 GLOB 3.0 08/20/2013 BILITOT 0.8 08/20/2013 ALP 344* 08/20/2013 AST 180* 08/20/2013 ALT 245* 08/20/2013 EGFR >60 08/20/2013 Microbiology: Stool negative for C. difficile by PCR. Fecal leukocytes negative. Medical imaging: CT scan of the abdomen and pelvis performed during emergency department visit on August 18 was reviewed in PACs and does not show any peripancreatic fat stranding. There is no evidenc e of pancreatic abscess or cyst formation. Radiology report as follows: IMPRESSION: High-grade active or inflammatory lesion is not demonstrated, but some possible imaging cor relates with pain 1. Dense stool with a nonobstructed colon 2. Some shotty mid mesenteric subthreshold lymph nodes, could be reactive or chronic, consi camille mesenteric adenitis 3. 2 small sub-4 mm calcifications at least in the region of the distribution of the left u reter, without upstream hydronephrosis or inflammatory changes Ultrasound of the abdomen shows unremarkable gallbladder but mildly dilated common bile matilda t. MRCP interpreted as follows: 1. There is no filling defect in the common bile duct to suggest a stone. Mild prominence o f the common bile and pancreatic ducts may be related to a distal stenosis. Generous appeara nce of the main and side branch pancreatic ducts may be related to mild pancreatic atrophy. Additional consideration of intraductal papillary mucinous tumor is considered unlikely. Medical record review: I have reviewed the patient's admission history and physical as well as progress notes from the current hospital stay. Emergency department notes have also been reviewed. Much of this information is summarized above in history of present illness. PROBLEM LIST Principal Problem: *Abdominal pain, right upper quadrant Active Problems: HIV (human immunodeficiency virus infection) Depression with anxiety Chronic back pain Nausea with vomiting Obesity, unspecified ASSESSMENT & PLAN Patient Active Hospital Problem List: Abdominal pain, right upper quadrant (08/19/2013) The patient's presentation is most suggestive of a viral gastroenteritis. MRCP and ultras ound of the abdomen are largely reassuring with the mild dilation of his common bile duct un likely to be related to his elevated LFTs as there is no sign of jitendra obstruction. The abse nce of high fever and leukocytosis makes cholangitis or pancreatitis very unlikely. I would continue supportive care. If the patient clinically deteriorates at this developed more impr essive signs of biliary obstruction, ERCP could be considered. I appreciate gastroenterology consultation and would wholeheartedly agree with recommenda tion for Antonette-Kwna virus and CMV serology. HIV (human immunodeficiency virus infection) (05/14/2013) The patient's diffuse should be responding to his regimen which was restarted approximate ly 3 months ago. He should have repeat viral load at this time to assess his response. His c urrent regimen has been well tolerated for 7 years, and I would therefore consider the likel ihood of NRTI-induced pancreatitis to be very low. His regimen does not include agents that have a high risk of pancreatitis. His CD4 count has fallen to 158 and I will therefore start trimethoprim-sulfamethoxazole double strength 3 times weekly for pneumocystis prophylaxis. Code Status: Full Code Primary Care Physician: ILIANA KENNY Thank you for allowing me to participate in the care of this patient. I will continue to follow with you. QUINTON RUCKER, 08/20/2013 aher, Juventino Duarte MD - 08/19/2013 9:19 PM PDT Consult* by Juventino Penny IV, MD at 08/19/132118 Author: Juventino Penny IV, MD Service: (none) Author Type: Physician Filed: 08/20/13 1315 Date of Service: 08/19/132118 Status: Signed Research Coordinator: Juventino Penny IV, MD (Physician) Related Notes: Original Note by Juventino Penny IV, MD (Physician) filed at 08/19/13 2 140 [facility] Service: Gastroenterology Initial Consult Note Date of Admission: 08/19/2013 Reason for Consultation: Diarrhea, N/V, abdominal pain, abnormal LFT, lipase Requesting Physician: Dr. Driscoll, Hospitalist History Obtained From: patient, chart review CHIEF COMPLAINT: Diarrhea, earlier N/V HISTORY OF PRESENT ILLNESS The patient is a 47-year-old white male, HIV positive, who reportedly has normal counts, on HIV medications. Initially began with profound nausea and vomiting with diarrhea about 5 da ys ago, but has persisted with primarily diarrhea since then. Of note his partner and multip le of their friends and coworkers have had the very same symptoms. Diarrhea has been nonbloo dy in nature, but profuse over the last 5 days. He presented to the emergency department pancho marcos yesterday, felt to have gastroenteritis and was able to be sent home. Symptoms contin ued to bother him and he returned today. It was noted now that he had some abnormal liver en zymes and a concern was raised of possible biliary disease. Initial thought was that he had a history of cholelithiasis but this proves not to be the case. His gallbladder was consider ed to be removed a number of years back for presumably a decreased ejection fraction on a HI DA scan. He insists he did not have stones. He has not had abnormal liver enzymes that he ca n recall. He has had no unusual exposures. No high fevers, though he has had some sweats. He was started on Keflex about 5 days prior to the onset of this diarrhea, but stopped it nicky use of the vomiting. He has some right-sided abdominal pain, but that he thinks may be more aggravated by vomiting and the fact that he had pronounced right lower back pain from a musc le strain a few weeks ago. He does not feel that pain predominance is his current symptom. U ltrasound was performed in the emergency department and showed no evidence of gallstones how ever the common bile duct was slightly larger than expected at 8 mm, raising the possibility of obstructive process. He was subsequently sent for MRCP which shows no evidence of choled ocholithiasis. The main bile ducts again seem slightly generous, but nonspecific. The patien t this evening now claims he is starving and wants to eat, which is the first time he has fe lt this way in the last 5 days. He denies generalized malaise, any swollen lymph nodes, or a ny extensive fatigue other than his chronic fatigue from his HIV disease. He does not recall ever having mononucleosis and denies any swollen lymph nodes or substantial sore throat. REVIEW OF SYSTEMS Review of Systems Constitutional: Positive for diaphoresis, appetite change and fatigue. Negative for fever, chills and unexpected weight change. HENT: Negative for mouth sores, trouble swallowing, neck pain and neck stiffness. Eyes: Negative for pain and visual disturbance. Respiratory: Negative for chest tightness, shortness of breath and wheezing. Cardiovascular: Negative for chest pain and leg swelling. Gastrointestinal: Positive for nausea, vomiting, abdominal pain, diarrhea and abdominal dis tention. Negative for blood in stool, anal bleeding and rectal pain. Genitourinary: Negative for urgency and difficulty urinating. Musculoskeletal: Positive for back pain. Negative for myalgias, joint swelling, arthralgias and gait problem. Skin: Negative for rash and wound. Neurological: Positive for weakness. Negative for dizziness, seizures, syncope and light-he adedness. Hematological: Negative for adenopathy. Psychiatric/Behavioral: Negative for confusion and agitation. Past Medical History Diagnosis Date HIV (human immunodeficiency virus infection) Muscle spasms of neck Hyperlipidemia Cholelithiasis COPD (chronic obstructive pulmonary disease) Chronic mastoiditis Multiple joint pain 05/14/2013 Other chronic pain Past Surgical History Procedure Date Tonsillectomy Fistula repair No Known Allergies Prescriptions prior to admission Medication Sig Dispense Refill ALBUTEROL IN Inhale into the lungs. amitriptyline (ELAVIL) 50 MG tablet Take 1 tablet by mouth nightly. 30 tablet 11 aspirin 81 MG chewable tablet Take 81 mg by mouth daily. citalopram (CELEXA) 40 MG tablet Take 1 tablet by mouth daily. 30 tablet 5 clonazePAM (KLONOPIN) 0.5 MG tablet Take 1 tablet by mouth 2 (two) times daily as neede d for Anxiety. 60 tablet 0 cyclobenzaprine (FLEXERIL) 10 MG tablet Take 1 tablet by mouth 2 (two) times daily as n eeded for Muscle spasms. 60 tablet 2 Darunavir Ethanolate 800 MG TABS Take 800 mg by mouth daily. 120 tablet 3 emtricitabine-tenofovir (TRUVADA) 200-300 MG per tablet Take 1 tablet by mouth daily. 120 tablet 3 fluticasone (FLOVENT HFA) 220 MCG/ACT inhaler Inhale 1 puff into the lungs 2 (two) time s daily. HYDROcodone-acetaminophen (NORCO) 7.5-325 MG per tablet Take 1 tablet by mouth every 8 (eight) hours as needed. 84 tablet 0 ondansetron (ZOFRAN) 4 MG tablet Take 1 tablet by mouth 3 (three) times daily as needed for Nausea. 20 tablet 0 ritonavir (NORVIR) 100 MG TABS tablet Take 100 mg by mouth daily. 120 tablet 3 tamsulosin (FLOMAX) 0.4 MG capsule Take 1 capsule by mouth daily. Administer 30 minutes after the same meal each day. Capsules should be swallowed whole; do not crush, chew, or op en 14 capsule 0 Scheduled Medications heparin (porcine) 5,000 Units Subcutaneous Q8H LORazepam 0.5 mg Intravenous Once LORazepam 0.5 mg Intravenous Once ondansetron 4 mg Intravenous Once sodium chloride 1,000 mL Intravenous Once Continuous Infusions sodium chloride 110 mL/hr at 08/19/13 1708 PRN Medications acetaminophen, acetaminophen, HYDROmorphone, morphine, morphine, morphine, ondansetron, ond ansetron, polyethylene glycol, zolpidem History reviewed. No pertinent family history. History Social History Marital Status: Significant Other Spouse Name: N/A Number of Children: N/A Years of Education: N/A Occupational History Not on file. Social History Main Topics Smoking status: Current Every Day Smoker -- 1.0 packs/day for 30 years Smokeless tobacco: Never Used Alcohol Use: No Drug Use: Yes Special: Marijuana medical card Sexually Active: Not Currently -- Male partner(s) Control/ Protection: Condom Other Topics Concern Not on file Social History Narrative No narrative on file PHYSICAL EXAM Vital Signs: BP 129/82 | Pulse 89 | Temp 96.8 F (36 C) (Oral) | Resp 18 | Ht 1.727 m (5' 7.99") | Wt 92.625 kg (204 lb 3.2 oz) | BMI 31.06 kg/m2 | SpO2 98% Temp: [96.8 F (36 C)-97.8 F (36.6 C)] 96.8 F (36 C) (08/19 1906) BP: (121-140)/(72-91) 129/82 mmHg (08/19 1906) Heart Rate: [88-119] 89 (08/19 1906) Resp: [16-19] 18 (08/19 1906) SpO2: [96 %-100 %] 98 % (08/19 1906) Height: [172.7 cm (5' 7.99")-172.7 cm (5' 8")] 172.7 cm (5' 7.99") (08/19 1753) Weight: [92.262 kg (203 lb 6.4 oz)-92.625 kg (204 lb 3.2 oz)] 92.625 kg (204 lb 3.2 oz) (1 1752) BMI (Calculated): [31-31.1] 31.1 (08/19 1753) Physical Exam Vitals reviewed. Constitutional: He is oriented to person, place, and time. He appears well-developed and we ll-nourished. No distress. HENT: Head: Normocephalic and atraumatic. Mouth/Throat: Oropharynx is clear and moist. No oropharyngeal exudate. Eyes: Conjunctivae normal and EOM are normal. Pupils are equal, round, and reactive to ligh t. No scleral icterus. Neck: Normal range of motion. Neck supple. No tracheal deviation present. Cardiovascular: Normal rate, regular rhythm and normal heart sounds. Pulmonary/Chest: Effort normal and breath sounds normal. Abdominal: Soft. Bowel sounds are normal. He exhibits no distension and no mass. There is T enderness: mild RUQ.. There is no rebound and no guarding. Musculoskeletal: Normal range of motion. He exhibits no edema and no tenderness. Lymphadenopathy: He has no cervical adenopathy. Neurological: He is alert and oriented to person, place, and time. No cranial nerve deficit . He exhibits normal muscle tone. Coordination normal. Skin: Skin is warm and dry. No rash noted. He is not diaphoretic. No erythema. Psychiatric: He has a normal mood and affect. His behavior is normal. Judgment and thought content normal. DATA CBC: Lab Results Component Value Date WBC 4.5 08/19/2013 RBC 4.95 08/19/2013 HGB 14.3 08/19/2013 HCT 43.0 08/19/2013 MCV 86.8 08/19/2013 MCH 28.9 08/19/2013 MCHC 33.2 08/19/2013 RDW 42.0 08/19/2013 PLT 165 08/19/2013 MPV 8.6 08/19/2013 DIFFTYPE AUTOMATED 08/19/2013 CMP: Lab Results Component Value Date NA 139 08/19/2013 K 3.8 08/19/2013 CL 105 08/19/2013 CO2 25 08/19/2013 ANIONGAP 12 08/19/2013 GLUF 99 08/19/2013 BUN 10 08/19/2013 CREATININE 0.86 08/19/2013 BCR 12 08/19/2013 CA 8.5 08/19/2013 PROT 7.6 08/19/2013 ALB 3.3* 08/19/2013 GLOB 4.3 08/19/2013 BILITOT 0.6 08/19/2013 ALP 359* 08/19/2013 AST 237* 08/19/2013 ALT 329* 08/19/2013 EGFR >60 08/19/2013 PT/INR: No results found for this basename: PROTIME, INR PTT: No results found for this basename: APTT [APTT U/A: Lab Results Component Value Date COLORU YELLOW 08/19/2013 CLARITYU CLEAR 08/19/2013 NITRITE NEGATIVE 08/19/2013 UROBILINOGEN 0.2 08/19/2013 PHUR 5.5 08/19/2013 BILIRUBINUR NEGATIVE 08/19/2013 Amylase: Lab Results Component Value Date AMYLASE 129* 08/18/2013 Lipase: Lab Results Component Value Date LIPASE 496* 08/19/2013 Results for SLAVA ANDERSON ( ) as of 08/19/2013 21:22 Ref. Range 04/23/2013 22:20 08/18/2013 13:15 08/19/2013 14:09 ALBUMIN Latest Range: 3.6-5.0 g/dL 3.9 3.3 (L) 3.3 (L) GLOBULIN Latest Range: 1.3-4.9 g/dL 4.0 4.2 4.3 TBIL Latest Range: 0.1-1.5 mg/dL 0.2 0.3 0.6 ALKALINE PHOSPHATASE Latest Range: 35-115 U/L 85 205 (H) 359 (H) AST Latest Range: 10-45 U/L 16 81 (H) 237 (H) ALT Latest Range: 10-65 U/L 28 144 (H) 329 (H) EGFR Latest Range: >60 mL/min/1.73m2 >60 >60 >60 AMYLASE Latest Range: 25-115 U/L 129 (H) LIPASE Latest Range: 73-393 U/L 1632 (H) 496 (H) C diff toxin by PCR (TAT 3 hr in house) [[id number]] Collected:08/19/131604 Updated:08/19/13 1708 Specimen Type:Stool Specimen Source:Stool Toxigenic C Difficile NEGATIVE Fecal Leukocytes [[id number]] Collected:08/19/131604 Updated:08/19/13 164 Specimen Type:Sto ol Specimen Source:Stool FECAL WHITE CELLS NO FECAL LEUKOCYTES SEEN MRI abdomen wo contrast MRCP [[id number]] Resulted:08/19/132008 Order Status:Completed Updat ed:08/19/132014 Narrative: SLAVA ANDERSON 1965 MRI ABDOMEN WO CONTRAST MRCP 08/19/2013 8:00 PM INDICATION: Abdominal pain, common bile duct stone COMPARISON: Ultrasound, 08/19/13 TECHNIQUE: MRI of abdomen without IV contrast. MRCP protocol. Multiplanar multisequence MRI performed on 1.5 Radha magnet using standard institution protocol. FINDINGS: The heart is normal in size. There is no pericardial or pleural effusion. The ashkan gs are clear. The liver is smooth in contour. No hepatic mass is demonstrated. There is mild biliary dila tion of the left lobe of the liver. The common bile duct is generous in size measuring 9.7 m m in diameter. There is no filling defect within the common bile duct to suggest a common bi le duct stone. The pancreatic duct is also generous in size measuring 6.6 mm along the uncin ate process. More distally along the body and tail, several sidebranches are visualized on M [employer]. No obvious mass of the pancreatic head is seen. The spleen is normal in appearance. The adrenals and pancreas are normal. The kidneys have a normal reniform contour. There is a small cyst in the midpole of the left kidney on image 21 series 5. There is no portal adenopathy. No ascites is present. There is no mesenteric or retroperitoneal adenopathy. Impression: 1. There is no filling defect in the common bile duct to suggest a stone. Mild prominence of the common bile and pancreatic ducts may be related to a distal stenosis. Gene davion appearance of the main and side branch pancreatic ducts may be related to mild pancreat ic atrophy. Additional consideration of intraductal papillary mucinous tumor is considered u nlikely. Abdomen, Gallbladder [[id number]] Resulted:08/19/13 1530 Order Status:Completed Updated: 153 Narrative: HISTORY: 47-year-old male with pain TECHNIQUE: Limited abdominal ultrasound, focused on the gallbladder, biliary system and adj acent structures. Prior examination for comparison: None. FINDINGS: Pancreas partially distended by gas, portions the mid body on image 44 series normal. What is seen of the liver demonstrates Increased echotexture. No fibrosis or focal lesion. No ascites Gallbladder is without evident gallstones. Wall 1.6 mm.No localizing pain or fluid. Common bile duct measures 8 mm. No dilatation of the intra-or extrahepatic biliary ductal s ystem. Impression: 1. Common bile duct is larger than expected. Source of this is not clear, but is certainly a potential relationship to symptoms. MRCP at the clinically appropriate time suggested. LEM LIST Principal Problem: *Abdominal pain, right upper quadrant Active Problems: HIV (human immunodeficiency virus infection) Depression with anxiety Chronic back pain Nausea with vomiting Obesity, unspecified ASSESSMENT & PLAN Acute onset of initial nausea and vomiting with persistent non-bloody diarrhea associated w ith abnormal LFT and pancreatic enzymes with multiple others including his partner with alma lar symptoms. This would clearly be most suggestive of viral gastroenteritis which can also affect liver and pancreas. Does not have clinical acute pancreatitis. No evidence for biliar y obstruction by imaging and does NOT have history of gallstones - told he had gallbladder d ysfunction by HIDA scan few years ago. EBV and CMV could cause LFT and pancreas changes but not typically diarrhea predominant. Recommendations 1. Advance diet as tolerated 2. EBV & CMV titers 3. IV hydration, anti-diarrheal medications Code Status: Full Code Primary Care Physician: ILIANA KENNY Thank you for allowing me to participate in the care of this patient. I will continue to follow with you. HENRIK PENNY MD 08/19/2013 documented in th is encounter ED Notes Conversion Transaction, Provider Unknown - 08/19/2013 4:45 PM PDTFormatting of this note m ight be different from the original. ED Notes by Nikkie Dwyer RN at 08/19/131644 Author: Nikkie Dwyer RN Service: (none) Author Type: Registered Nurse Filed: 08/19/131644 Date of Service: 08/19/131644 Status: Signed Research Coordinator: Nikkie Dwyer RN (Registered Nurse) at bedside: Dr. Marybel Dwyer RN 08/19/131644 onver brett Transaction, Provider Unknown - 08/19/2013 3:17 PM PDT ED Notes by Saurabh Edwards RN at 08/19/131516 Author: Saurabh Edwards RN Service: (none) Author Type: Registered Nurse Filed: 08/19/131517 Date of Service: 08/19/131516 Status: Signed Research Coordinator: Saurabh Edwards RN (Registered Nurse) Pt unable to provide urine sample or stool sample at this time. Comfort measures and warm b lanket provided. Saurabh Edwards RN 08/19/131517 onver brett Transaction, Provider Unknown - 08/19/2013 3:17 PM PDT ED Notes by Saurabh Edwards RN at 08/19/131516 Author: Saurabh Edwards RN Service: (none) Author Type: Registered Nurse Filed: 08/19/131516 Date of Service: 08/19/131516 Status: Signed Research Coordinator: Saurabh Edwards RN (Registered Nurse) Patient given instructions on how to obtain a clean catch urine specimen. Patient verbaliz ed understanding. Specimen cup and towelettes provided. Patient to bathroom to attempt col lection. Saurabh Edwards RN 08/19/131516 onver brett Transaction, Provider Unknown - 08/19/2013 2:40 PM PDT ED Notes by Nikkie Dwyer RN at 08/19/131439 Author: Nikkie Dwyer RN Service: (none) Author Type: Registered Nurse Filed: 08/19/131453 Date of Service: 08/19/131439 Status: Signed Research Coordinator: Nikkie Dwyre RN (Registered Nurse) [employer]anna [employer] Designer at the pts. Bedside. Nikkie Dwyer RN 08/19/132 onver brett Transaction, Provider Unknown - 08/19/2013 2:22 PM PDT ED Notes by Luis Carlos Campbell RN at 08/19/131421 Author: Luis Carlos Campbell RN Service: (none) Author Type: Registered Nurse Filed: 08/19/131425 Date of Service: 08/19/131421 Status: Signed Research Coordinator: Luis Carlos Campbell RN (Registered Nurse) Patient stated "Can you call my AIDS nurse at the health department? I need her to stop by my house to get my cell phone that I forgot. My ride home got picked up and is now in [facility] , my service animal was with him and got put in the pound, so I need a ride home now and I d on't have any one to call." Pt asking for anti anxiety medication Dr. Crow notified. Pt assured that hospital will assist in finding transportation and that it is a poor allocation of resources for his "AIDS nurse" to run to his house and collect his cell phone. Luis Carlos Campbell RN 08/19/131425 Paco Perrin MD - 08/19/2013 1:04 PM PDTFormatting of this note might be different from the o riginal. ED Provider Notes by Kalyn Crow MD at 08/19/13 7972 Author: Kalyn Crow MD Service: (none) Author Type: Physician Filed: 08/21/13 3813 Date of Service: 08/19/131303 Status: Signed Research Coordinator: Kalyn Crow MD (Physician) [facility] Department of Emergency Medicine History of Present Illness Patient Identification Slava Anderson is a 47 y.o. male. Patient information was obtained from patient. History/Exam limitations: none. Patient presented to the Emergency Department by: Car Chief Complaint Chief Complaint Patient presents with Abdominal Pain Was seen in ED yesterday and called Dr. Rucker's office today. Diarrhea 5 days The patient who was seen in ED yesterday complains of RUQ abdominal pain. Onset of symptoms was five days ago, with a constant and worsening course since that time. The symptoms are described to be of moderate severity. The patient also complains of diarrhea, nausea, vomiti ng, loss of appetite, and abdominal cramping. The pt reports the symptoms began 5 days ago with nausea, vomiting, and RUQ pain, the following day and the days since he has experienced diarrhea, abdominal cramping, and RUQ abdominal pain. Care prior to arrival consisted of vi sit to ED without picking up rx. The pt reports that his partner was on his way to the pharmacy to machine operator hop picker his medications a nd was arrested on his way home. Past Medical History Diagnosis Date HIV (human immunodeficiency virus infection) Muscle spasms of neck Hyperlipidemia Cholelithiasis COPD (chronic obstructive pulmonary disease) Chronic mastoiditis Multiple joint pain 05/14/2013 Other chronic pain Past Surgical History Procedure Date Tonsillectomy Fistula repair Prior to Admission medications Medication Sig Start Date End Date Taking? Authorizing Provider ALBUTEROL IN Inhale into the lungs. Historical Provider amitriptyline (ELAVIL) 50 MG tablet Take 1 tablet by mouth nightly. 05/14/13 05/14/14 WANDA Cary aspirin 81 MG chewable tablet Take 81 mg by mouth daily. Historical Provider citalopram (CELEXA) 40 MG tablet Take 1 tablet by mouth daily. 05/14/13 WANDA Cary clonazePAM (KLONOPIN) 0.5 MG tablet Take 1 tablet by mouth 2 (two) times daily as needed fo r Anxiety. 08/12/13 09/11/13 WANDA Cary cyclobenzaprine (FLEXERIL) 10 MG tablet Take 1 tablet by mouth 2 (two) times daily as neede d for Muscle spasms. 08/12/13 09/11/13 WANDA Cary Darunavir Ethanolate 800 MG TABS Take 800 mg by mouth daily. 05/19/13 05/19/14 Zita castillo MD emtricitabine-tenofovir (TRUVADA) 200-300 MG per tablet Take 1 tablet by mouth daily. 05/19/14 Zita Enriquez MD fluticasone (FLOVENT HFA) 220 MCG/ACT inhaler Inhale 1 puff into the lungs 2 (two) times da laverne. Historical Provider HYDROcodone-acetaminophen (NORCO) 7.5-325 MG per tablet Take 1 tablet by mouth every 8 (eig ht) hours as needed. 08/12/13 09/09/13 WANDA Cary ondansetron (ZOFRAN) 4 MG tablet Take 1 tablet by mouth 3 (three) times daily as needed for Nausea. 08/18/13 08/25/13 Ashwin Young PA-C ritonavir (NORVIR) 100 MG TABS tablet Take 100 mg by mouth daily. 05/19/13 05/19/14 Zita Enriquez MD tamsulosin (FLOMAX) 0.4 MG capsule Take 1 capsule by mouth daily. Administer 30 minutes aft er the same meal each day. Capsules should be swallowed whole; do not crush, chew, or open 1 Ashwin Young PA-C No Known Allergies History Social History Marital Status: Significant Other Spouse Name: N/A Number of Children: N/A Years of Education: N/A Occupational History Not on file. Social History Main Topics Smoking status: Current Every Day Smoker -- 1.0 packs/day for 30 years Smokeless tobacco: Never Used Alcohol Use: No Drug Use: Yes Special: Marijuana medical card Sexually Active: Not Currently -- Male partner(s) Control/ Protection: Condom Other Topics Concern Not on file Social History Narrative No narrative on file History reviewed. No pertinent family history. Review of Systems Constitutional: No fever Positive for loss of appetite. ENT: No blindness, no rhinitis, no sore throat Cardiovascular: No chest pain Respiratory: No shortness of breath, cough Gastrointestinal: Positive for RUQ abdominal pain, abdominal cramping, N/V/D. No black or bloody stools Genitourinary: No dysuria, hematuria Musculoskeletal: No acute physical injury. Skin: No laceration or rash Neuro and psych: No head injury, seizure, headache Endocrine/Heme/Lymph: No easy bruising or bleeding. Physical Exam BP 136/79 | Pulse 119 | Temp 97.8 F (36.6 C) (Oral) | Resp 18 | Ht 1.727 m (5' 8") | Wt 92.262 kg (203 lb 6.4 oz) | BMI 30.93 kg/m2 | SpO2 97% Vital Sign interpretation: tachycardic, otherwise normal Pulse Oximetry interpretation: normal General: Alert, in no apparent distress Eyes: Non-icteric ENT: Normal external exam Neck: Supple Cardiovascular: Warm and well perfused, regular rate and rhythm Respiratory: No respiratory distress, equal breath sound bilaterally Abdomen: RUQ TTP, no guarding or rebound distended abdomen Negative heal tap Extremities: ZAMORA, no peripheral edema, no calf tenderness Back: Normal ROM Skin: Color normal Warm and dry No rash Neuro: Alert, no AMS No gross motor/sensory deficits Medical Decision Making and Emergency Department Course ED Department Course Pt here yesterday with high lipase, but CT that suggests mesenteric adenitis with diarrheal illness. Most prominently he has RUQ pain today, and with previous high lipase, my concern would be biliary disease or CBD stone. Labs suggest elevated LFTs and improved lipase vs. yesterday. Will order an ultrasound. US suggests large CBD. Will admit and order MRCP. Pt requesting meds for anxiety. Given some ativan. 4:44 PM Discussed the pt with Dr. No, hospitalist, who accepts the pt for admission. Records Reviewed Old medical records. Nursing notes. Laboratory Evaluation Results Procedure Component Value Ref Range Date/Time POC clinitek 10 [[id number]] Collected:08/19/13 1556 Order Status:Completed Updated:08/19/13 1601 Color, UA YELLOW Clarity, UA CLEAR Glucose, UA NEGATIVE NEGATIVE mg/dL Bilirubin, UA NEGATIVE NEGATIVE Ketones, UA NEGATIVE NEGATIVE mg/dL Spec Grav, UA 1.015 1.001 - 1.035 Blood, UA NEGATIVE NEGATIVE pH, UA 5.5 4.6 - 8.0 Protein, UA NEGATIVE NEGATIVE mg/dL Urobilinogen, UA 0.2 <1.1 mg/dL Nitrite, UA NEGATIVE NEGATIVE WBC, UA NEGATIVE NEGATIVE Complete Metabolic Panel [[id number]] (Abnormal) Collected:08/19/13 1409 Order Status:Completed Updated:08/19/13 1433 Specimen Information:Blood SODIUM 139 135 - 143 mmol/L POTASSIUM 3.8 3.5 - 4.9 mmol/L CHLORIDE 105 99 - 109 mmol/L CO2 25 23 - 32 mmol/L ANION GAP AGAP 12 5 - 20 mmol/L GLUCOSE 99 65 - 99 mg/dL BUN 10 8 - 25 mg/dL CREATININE 0.86 0.70 - 1.30 mg/dL BUN/CREAT 12 CALCIUM 8.5 8.5 - 10.2 mg/dL TOTAL PROTEIN 7.6 6.3 - 8.2 g/dL Albumin 3.3 (L) 3.6 - 5.0 g/dL GLOBULIN 4.3 1.3 - 4.9 g/dL A/G 0.8 (L) 1.0 - 2.4 TBIL 0.6 0.1 - 1.5 mg/dL ALK PHOS 359 (H) 35 - 115 U/L AST 237 (H) 10 - 45 U/L ALT 329 (H) 10 - 65 U/L EGFR >60 >60 mL/min/1.73m2 Lipase [[id number]] (Abnormal) Collected:08/19/131408 Order Status:Completed Updated:08/19/131432 Specimen Information:Blood LIPASE 496 (H) 73 - 393 U/L CBC w Auto Diff [[id number]] Collected:08/19/131408 Order Status:Completed Updated:08/19/131415 Specimen Information:Blood WBC 4.5 3.8 - 11.0 K/uL RBC 4.95 4.20 - 5.70 M/uL HGB 14.3 13.2 - 17.0 g/dL HCT 43.0 39.0 - 50.0 % MCV 86.8 80.0 - 100.0 fl MCH 28.9 27.0 - 34.0 pg MCHC 33.2 32.0 - 35.5 g/dL RDW SD 42.0 37 - 53 fl PLT 165 150 - 400 K/uL MPV 8.6 fl DIFF TYPE AUTOMATED NEUTROPHILS 55.5 40 - 75 % LYMPHOCYTES 32.8 15 - 48 % MONOCYTES 5.9 0 - 12 % EOSINOPHILS 5.5 0 - 7 % BASOPHILS 0.3 0 - 2 % NEUTROPHILS ABS 2.5 1.9 - 7.4 K/uL LYMPHOCYTES ABS 1.5 1.0 - 3.9 K/uL MONOCYTES ABS 0.3 0 - 0.8 K/uL EOSINOPHILS ABS 0.2 0 - 0.5 K/uL BASOPHILS ABS 0.0 0 - 0.1 K/uL I personally reviewed the lab results and they have been posted to the chart. Pertinent po sitive and negative findings have been addressed appropriately. Radiology and EKG Evaluation Imaging Results MRI abdomen wo contrast MRCP (Final result) Result time:08/19/132008 Final result by Rad Results In Melquiades (08/19/13 20:09:56) Impression: 1. There is no filling defect in the common bile duct to suggest a stone. Mild prominence of the common bile and pancreatic ducts may be related to a distal stenosis. Generous appea ariane of the main and side branch pancreatic ducts may be related to mild pancreatic atrophy . Additional consideration of intraductal papillary mucinous tumor is considered unlikely. Narrative: SLAVA ANDERSON 1965 MRI ABDOMEN WO CONTRAST MRCP 08/19/2013 8:00 PM INDICATION: Abdominal pain, common bile duct stone COMPARISON: Ultrasound, 08/19/13 TECHNIQUE: MRI of abdomen without IV contrast. MRCP protocol. Multiplanar multisequence MRI performed on 1.5 Radha magnet using standard institution protocol. FINDINGS: The heart is normal in size. There is no pericardial or pleural effusion. The ashkan gs are clear. The liver is smooth in contour. No hepatic mass is demonstrated. There is mild biliary dila tion of the left lobe of the liver. The common bile duct is generous in size measuring 9.7 m m in diameter. There is no filling defect within the common bile duct to suggest a common bi le duct stone. The pancreatic duct is also generous in size measuring 6.6 mm along the uncin ate process. More distally along the body and tail, several sidebranches are visualized on M [employer]. No obvious mass of the pancreatic head is seen. The spleen is normal in appearance. The adrenals and pancreas are normal. The kidneys have a normal reniform contour. There is a small cyst in the midpole of the left kidney on image 21 series 5. There is no portal adenopathy. No ascites is present. There is no mesenteric or retroperitoneal adenopathy. US Abdomen, Gallbladder (Final result) Result time:08/19/13 1530 Final result by Rad Results In Melquiades (08/19/13 15:30:48) Impression: 1. Common bile duct is larger than expected. Source of this is not clear, but is certainly a potential relationship to symptoms. MRCP at the clinically appropriate time suggested. Narrative: HISTORY: 47-year-old male with pain TECHNIQUE: Limited abdominal ultrasound, focused on the gallbladder, biliary system and adj acent structures. Prior examination for comparison: None. FINDINGS: Pancreas partially distended by gas, portions the mid body on image 44 series normal. What is seen of the liver demonstrates Increased echotexture. No fibrosis or focal lesion. No ascites Gallbladder is without evident gallstones. Wall 1.6 mm.No localizing pain or fluid. Common bile duct measures 8 mm. No dilatation of the intra-or extrahepatic biliary ductal s ystem. ED Diagnoses Final diagnoses Common bile duct stone Diarrhea Anxiety Associated Orders CLONAZEPAM 0.5 MG PO TABS Disposition: ED Disposition Admit/Observation Bed request special needs: None Diagnosis?: CBD obstruction Additional Documentation Procedures Attending Note: Documentation assistance provided by Shobha Lovett (Scribe). Information recorded by the scribe has been reviewed and validated by . Manuel williamson with its contents. MD Kalyn Whaley MD 08/21/13 1454 documented in this e ncounter Plan of Treatment Not on filedocumented as of this encounter Procedures + +--------+ + + + | Procedure Name | Priori | Date/Time | Associated Diagnosis | Comments | | | ty | | | | + +--------+ + + + | LACTOFERRIN, FECAL, | Timed | 08/20/2013 | | Results for this | | QUAL | | 8:35 PM | | procedure are in the | | | | PDT | | results section. | + +--------+ + + + | OVA AND PARASITE | Timed | 08/20/2013 | | Results for this | | EXAMINATION | | 8:35 PM | | procedure are in the | | | | PDT | | results section. | + +--------+ + + + | ROTAVIRUS ANTIGEN, | Timed | 08/20/2013 | | Results for this | | STOOL | | 8:35 PM | | procedure are in the | | | | PDT | | results section. | + +--------+ + + + | HISTORICAL | Timed | 08/20/2013 | | Results for this | | MICROBIOLOGY RESULT | | 8:34 PM | | procedure are in the | | | | PDT | | results section. | + +--------+ + + + | CRYPTOSPORIDIUM EXAM | Timed | 08/20/2013 | | Results for this | | | | 8:34 PM | | procedure are in the | | | | PDT | | results section. | + +--------+ + + + | CULTURE, STOOL | Timed | 08/20/2013 | | Results for this | | | | 8:15 PM | | procedure are in the | | | | PDT | | results section. | + +--------+ + + + | MRI ABDOMEN WO | Routin | 08/19/2013 | | Results for this | | CONTRAST MRCP | e | 8:00 PM | | procedure are in the | | | | PDT | | results section. | + +--------+ + + + | HISTORICAL | STAT | 08/19/2013 | | Results for this | | MICROBIOLOGY RESULT | | 4:05 PM | | procedure are in the | | | | PDT | | results section. | + +--------+ + + + | FECAL LEUKOCYTES | STAT | 08/19/2013 | | Results for this | | | | 4:05 PM | | procedure are in the | | | | PDT | | results section. | + +--------+ + + + | US ABDOMEN LIMITED | Routin | 08/19/2013 | | Results for this | | | e | 3:23 PM | | procedure are in the | | | | PDT | | results section. | + +--------+ + + + documented in this encounter Results Lactoferrin, Fecal, Qual (08/20/2013 8:35 PM PDT) + + | Specimen | + + | Stool specimen | | (specimen) | + + + + + | Narrative | Performed At | + + + | LACTOFERRIN, FECAL NEGATIVE A NEGATIVE | EXTERNAL LAB | | RESULT DOES NOT EXCLUDE THE PRESENCE OF INTESTINAL INFLAMMATION. | | | Testing performed at [address] [address] | | + + + + +---------+ + + | Performing | Address | City/State/Zipcode | Phone Number | | Organization | | | | + +---------+ + + | EXTERNAL LAB | | | | + +---------+ + + Ova and Parasite Examination (08/20/2013 8:35 PM PDT) + + | Specimen | + + | Stool specimen | | (specimen) | + + + + + | Narrative | Performed At | + + + | Specimen Description STOOL | EXTERNAL LAB | | Testing performed at [facility];[address] | | [facility];[place] [address] OVA AND PARASITES | | | SPECIMEN DESCRIPTION: NOT GIVEN | | | NO OVA OR PARASITES SEEN | | | Testing performed at [facility], [address] | | | [place] [address] REPORT STATUS | | | 08/23/2013 FINAL | | + + + + +---------+ + + | Performing | Address | City/State/Zipcode | Phone Number | | Organization | | | | + +---------+ + + | EXTERNAL LAB | | | | + +---------+ + + Rotavirus antigen, stool (08/20/2013 8:35 PM PDT) + + | Specimen | + + | Stool specimen | | (specimen) | + + + + + | Narrative | Performed At | + + + | ROTAVIRUS NEGATIVE Testing | EXTERNAL LAB | | performed at [facility], [address] [place] [address] | | + + + + +---------+ + + | Performing | Address | City/State/Zipcode | Phone Number | | Organization | | | | + +---------+ + + | EXTERNAL LAB | | | | + +---------+ + + Cryptosporidium Exam (08/20/2013 8:34 PM PDT) + + | Specimen | + + | Stool specimen | | (specimen) | + + + + + | Narrative | Performed At | + + + | Specimen Description STOOL | EXTERNAL LAB | | Testing performed at [facility];[address] | | [address];[place] [address] Cryptosporidium Smear, Stool No | | | Cryptosporidium antigen detected by ICA | | | Testing performed at [facility], [address] [facility] | | | [facility], [place] [address] REPORT STATUS | | | 08/21/2013 FINAL | | + + + + +---------+ + + | Performing | Address | City/State/Zipcode | Phone Number | | Organization | | | | + +---------+ + + | EXTERNAL LAB | | | | + +---------+ + + HISTORICAL MICROBIOLOGY RESULT (08/20/2013 8:34 PM PDT) + + | Specimen | + + | Stool specimen | | (specimen) | + + + + + | Narrative | Performed At | + + + | GIARDIA ANTIGEN NEGATIVE Testing | EXTERNAL LAB | | performed at [facility], [address] [place] [address] | | + + + + +---------+ + + | Performing | Address | City/State/Zipcode | Phone Number | | Organization | | | | + +---------+ + + | EXTERNAL LAB | | | | + +---------+ + + Culture, Stool (08/20/2013 8:15 PM PDT) + + | Specimen | + + | Stool specimen | | (specimen) | + + + + + | Narrative | Performed At | + + + | Specimen Description STOOL | EXTERNAL LAB | | Testing performed at [facility];[address] | | | [facility];[place] [address] CULTURE | | | NO SALMONELLA, SHIGELLA, CAMPYLOBACTER OR E. COLI 0157 | | | ISOLATED. IF A | | | YERSINIA OR VIBRIO IS SUSPECTED, PLEASE CONTACT THE MICRO LAB FOR | | | SPECIAL TESTING. | | | IF A SHIGATOXIN PRODUCING ORGANISM IS SUSPECTED, PLEASE CONTACT THE | | | MICRO LAB FOR SPECIAL TESTING. | | | Testing performed at [facility], [address] [facility], | | | [place] [address] REPORT STATUS | | | 08/22/2013 FINAL | | + + + + +---------+ + + | Performing | Address | City/State/Zipcode | Phone Number | | Organization | | | | + +---------+ + + | EXTERNAL LAB | | | | + +---------+ + + MRI Abdomen wo Contrast MRCP (08/19/2013 8:00 PM PDT) + + | Specimen | + + | | + + + + + | Impressions | Performed At | + + + | 1. There is no filling defect in the common bile duct to suggest a | | | stone. Mild prominence of the common bile and pancreatic ducts may be | | | related to a distal stenosis. Generous appearance of the main and | | | side branch pancreatic ducts may be related to mild pancreatic | | | atrophy. Additional consideration of intraductal papillary mucinous | | | tumor is considered unlikely. | | + + + + + + | Narrative | Performed At | + + + | SLAVA ANDERSON 1965 MRI ABDOMEN WO CONTRAST MRCP 08/19/2013 | | | 8:00 PM INDICATION: Abdominal pain, common bile duct stone | | | COMPARISON: Ultrasound, 08/19/13 TECHNIQUE: MRI of abdomen without | | | IV contrast. MRCP protocol. Multiplanar multisequence MRI performed | | | on 1.5 Radha magnet using standard institution protocol. FINDINGS: | | | The heart is normal in size. There is no pericardial or pleural | | | effusion. The lungs are clear. The liver is smooth in contour. No | | | hepatic mass is demonstrated. There is mild biliary dilation of the | | | left lobe of the liver. The common bile duct is generous in size | | | measuring 9.7 mm in diameter. There is no filling defect within the | | | common bile duct to suggest a common bile duct stone. The pancreatic | | | duct is also generous in size measuring 6.6 mm along the uncinate | | | process. More distally along the body and tail, several sidebranches | | | are visualized on MRCP. No obvious mass of the pancreatic head is | | | seen. The spleen is normal in appearance. The adrenals and | | | pancreas are normal. The kidneys have a normal reniform contour. There | | | is a small cyst in the midpole of the left kidney on image 21 series | | | 5. There is no portal adenopathy. No ascites is present. There is no | | | mesenteric or retroperitoneal adenopathy. | | + + + + + | Procedure Note | + + | Melquiades Rad Conversion - 07/02/2019 5:48 PM PDT SLAVA ANDERSON1965MRI ABDOMEN WO | | CONTRAST MRCP1 8:00 PM INDICATION: Abdominal pain, common bile duct stone | | COMPARISON: Ultrasound, 08/19/13 TECHNIQUE: MRI of abdomen without IV contrast. MRCP | | protocol. Multiplanar multisequence MRI performed on 1.5 Radha magnet using standard | | institution protocol. FINDINGS: The heart is normal in size. There is no pericardial or | | pleural effusion. The lungs are clear. The liver is smooth in contour. No hepatic mass | | is demonstrated. There is mild biliary dilation of the left lobe of the liver. The | | common bile duct is generous in size measuring 9.7 mm in diameter. There is no filling | | defect within the common bile duct to suggest a common bile duct stone. The pancreatic | | duct is also generous in size measuring 6.6 mm along the uncinate process. More distally | | along the body and tail, several sidebranches are visualized on MRCP. No obvious mass | | of the pancreatic head is seen. The spleen is normal in appearance. The adrenals and | | pancreas are normal. The kidneys have a normal reniform contour. There is a small cyst | | in the midpole of the left kidney on image 21 series 5. There is no portal adenopathy. | | No ascites is present. There is no mesenteric or retroperitoneal adenopathy. IMPRESSION: | | 1. There is no filling defect in the common bile duct to suggest a stone. Mild | | prominence of the common bile and pancreatic ducts may be related to a distal stenosis. | | Generous appearance of the main and side branch pancreatic ducts may be related to mild | | pancreatic atrophy. Additional consideration of intraductal papillary mucinous tumor is | | considered unlikely. | |There is no mesenteric or retroperitoneal adenopathy. | | | |IMPRESSION: | |1. There is no filling defect in the common bile duct to suggest a stone. Mild prominence of the common bile and pancreatic ducts may be related to a distal stenosis. Generous appear ance of the main and side branch pancreatic ducts may be related to | |mild pancreatic atrophy. Additional consideration of intraductal papillary mucinous tumor i s considered unlikely. | | | | | + + HISTORICAL MICROBIOLOGY RESULT (08/19/2013 4:05 PM PDT) + + | Specimen | + + | Stool specimen | | (specimen) | + + + + + | Narrative | Performed At | + + + | Toxigenic C Difficile NEGATIVE Testing | EXTERNAL LAB | | performed at [facility];[address] [place] [address];[place] [address] 027 NAP1 BI | | | 027 NAP1 BI PRESUMPTIVE NEGATIVE | | | Detection of 027 NAP1 BI strains of C. difficile is presumptive and | | | for epidemiological purposes and not intended to guide or monitor | | | treatment for C. difficile infections. Testing performed at [facility] | | | [facility];[place] [address] | | + + + + +---------+ + + | Performing | Address | City/State/Zipcode | Phone Number | | Organization | | | | + +---------+ + + | EXTERNAL LAB | | | | + +---------+ + + Fecal leukocytes (08/19/2013 4:05 PM PDT) + + | Specimen | + + | Stool specimen | | (specimen) | + + + + + | Narrative | Performed At | + + + | FECAL WHITE CELLS NO FECAL LEUKOCYTES SEEN | EXTERNAL LAB | | Testing performed at [facility];[address] [facility];[place] [address] | | + + + + +---------+ + + | Performing | Address | City/State/Zipcode | Phone Number | | Organization | | | | + +---------+ + + | EXTERNAL LAB | | | | + +---------+ + + US Abdomen Limited (08/19/2013 3:23 PM PDT) + + | Specimen | + + | | + + + + + | Impressions | Performed At | + + + | 1. Common bile duct is larger than expected. Source of this is | | | not clear, but is certainly a potential relationship to symptoms. MRCP | | | at the clinically appropriate time suggested. Electronically | | | signed by Jason Seay MD on 08/19/2013 3:30 PM | | + + + + + + | Narrative | Performed At | + + + | HISTORY: 47-year-old male with pain TECHNIQUE: Limited abdominal | | | ultrasound, focused on the gallbladder, biliary system and adjacent | | | structures. Prior examination for comparison: None. FINDINGS: | | | Pancreas partially distended by gas, portions the mid body on | | | image 44 series normal. What is seen of the liver demonstrates | | | Increased echotexture. No fibrosis or focal lesion. No ascites | | | Gallbladder is without evident gallstones. Wall 1.6 mm.No localizing | | | pain or fluid. Common bile duct measures 8 mm. No dilatation of the | | | intra-or extrahepatic biliary ductal system. | | + + + + + | Procedure Note | + + | Amaury Arnett Conversion - 07/02/2019 5:48 PM PDT HISTORY: 47-year-old male with pain | | TECHNIQUE: Limited abdominal ultrasound, focused on the gallbladder, biliary system and | | adjacent structures. Prior examination for comparison: None. FINDINGS: Pancreas | | partially distended by gas, portions the mid body on image 44 series normal. What is | | seen of the liver demonstrates Increased echotexture. No fibrosis or focal lesion. No | | ascites Gallbladder is without evident gallstones. Wall 1.6 mm.No localizing pain or | | fluid.Common bile duct measures 8 mm. No dilatation of the intra-or extrahepatic biliary | | ductal system. IMPRESSION: 1. Common bile duct is larger than expected. Source of | | this is not clear, but is certainly a potential relationship to symptoms. MRCP at the | | clinically appropriate time suggested. Electronically signed by Jason Seay MD on | | 08/19/2013 3:30 PM | | | |Gallbladder is without evident gallstones. Wall 1.6 mm.No localizing pain or fluid. | |Common bile duct measures 8 mm. No dilatation of the intra-or extrahepatic biliary ductal s ystem. | | | | | | | |IMPRESSION: | | | |1. Common bile duct is larger than expected. Source of this is not clear, but is certainly a potential relationship to symptoms. MRCP at the clinically appropriate time suggested. | | | | | + + documented in this encounter Visit Diagnoses + + | Diagnosis | + + | Common bile duct stone Calculus of bile duct without mention of cholecystitis or | | obstruction | + + | Depression with anxiety Dysthymic disorder | + + | Nausea with vomiting | + + | Diarrhea | + + | Anxiety Anxiety state, unspecified | + + | Abdominal pain, right upper quadrant | + + | HIV (human immunodeficiency virus infection) (HCC) Asymptomatic human | | immunodeficiency virus (HIV) infection status | + + | Low back pain Lumbago | + + | Multiple joint pain Pain in joint, multiple sites | + + | Joint stiffness Stiffness of joint, not elsewhere classified, unspecified site | + + | Myalgia Mylagia and myositis, unspecified | + + documented in this encounter
--- OUTSIDE RECORDS SUMMARY | ~2020-06-05 | XMS | Encounter Summary ---
Demographics + + + | Address | [address] | | | [place] [address] | + + + | Home Phone | | + + + | Preferred Language | Unknown | + + + | Marital Status | Single | + + + | Tenriism Affiliation | Unknown | + + + | Race | Unknown | + + + | Ethnic Group | Unknown | + + + Author + + + | Author | [facility] | | | and [place] | + + + | Organization | [facility] | | | and [place] [...] Team Providers + +------+ + | Care Plastic Design Applier Name | Role | Phone | + +------+ + PCP | Unavailable | + +------+ + Encounter Details +--------+ + + + + | Date | Type | Department | Care Team | Description | +--------+ + + + + | 11/06/ | Hospital | [facility] | [place], | | | 2009 | Encounter | MED CTR XRAY [address] | Kate Wright MD | | | | | [place] | | | | | | [place] [address] | | | | | | [phone] | | | +--------+ + + + [...]
--- OUTSIDE RECORDS SUMMARY | ~2020-06-05 | XMS | Encounter Summary ---
Demographics + + + | Address | [address] | | | [place] [address] | + + + | Home Phone | | + + + | Preferred Language | Unknown | + + + | Marital Status | Single | + + + | Rastafarian Affiliation | Unknown | + + + | Race | White | + + + | Ethnic Group | Not or | + + + Author + + + | Author | [facility] | + + + | Organization | [facility] | + + + | Address | Unknown | + + + | Phone | Unavailable | + + + Support + + +---------+ + | Name | Relationship | Address | Phone | + + +---------+ + | Skyler Todd | ECON | Unknown | | + + +---------+ + Care Team Providers + +------+ + | Care Crucible Packer Name | Role | Phone | + [...] | Required | | immunodefici | [address] | [address] [facility] | | | | | ency virus | [place]. | [facility] | | | | | (HIV) | [place], | [place], | | | | | disease | [place] [address] | [place] | | | | | (HCC) | Phone: | [address] | | | | | | [phone] | Phone: | | | | | | Fax: | [phone] | | | | | | [phone] | Fax: | | | | | | | [phone] | +--------+ + + + + + Encounter Details +--------+---------+ + + + | Date | Type | Department | Care Team | Description | +--------+---------+ + + + | 02/12/ | Office | Internal Medicine | Faustina Henao MD | HIV (human | | 2010 | Visit | [facility] [address] | [address] | immunodeficiency | | | | [address] | [place], | virus infection) | | | | Mailcode: [id number] | [place] [address] | ([facility]); | | | | [facility] | [phone] | Hyperlipidemia LDL | | | | [place], [place] | | goal < 100; | | | | [address] | | Tachycardia; | | | | [phone] | | Unspecified asthma; | | | [...] disease. He was last seen in the [facility] on 12/12 12/21. PCP: Jerome [...] gait. Labs: Lab Results Component Value Date [id number] 156* 09/04/2010 [id number] 9.0* 09/04/2010 HIVPCR 54 09/04/2010 Lab Results Component Value Date RPR Non-Reactive 09/04/2010 Lab Results Component Value Date CHOL 245 09/04/2010 LDL 142 09/04/2010 HDL 28 09/04/2010 TRI 406 09/04/2010 Lab Results Component Value Date [id number] 31 09/04/2010 Last CBC, CMP reviewed with [...]
--- OUTSIDE RECORDS SUMMARY | ~2020-06-05 | XMS | Encounter Summary ---
Demographics + + + | Address | [address] | | | [place] [address] | + + + | Home Phone [...] Author + + + | Author | [facility] | + + + | Organization | [facility] | + + + | Address | Unknown | + + + | Phone | Unavailable | + + + Support + + +---------+ + | Name | Relationship | Address | Phone | + + +---------+ + | Skyler Todd | ECON | Unknown | | + + +---------+ + Care Team Providers + +------+ + | Care Stereo Compiler Name | Role | Phone | + +------+ + | Faustina Henao MD | PCP | | + +------+ + Encounter Details +--------+------+ + + + | Date | Type | Department | Care Team | Description | +--------+------+ + + + | 09/04/ | Lab | [facility] at [facility] | | HIV (human | | 2009 | | [address] | | immunodeficiency | | | | [address] [facility] | | virus infection) | | | | [address], 3rd floor | | ([facility]) | | | | [place], [place] | | | | | | [address] | | | | | | [phone] | | | +--------+------+ + + + [...] DEPARTMENT OF | [address] | [place] [address] | | | PATHOLOGY | [address] [...] | + + + + + | [facility] | [address] | [place] [address] | | | PATHOLOGY | [address] [...] [facility] | [facility] | | [place] [address] | REGIONAL | | [place] [address] | LABORATORY | + + + + + + + + | Performing | Address | City/State/Zipcode | Phone Number | | Organization | | | | + + + + + | [facility] | [address] | [place] [address] | | | LABORATORY | | | [...] [facility] | [facility] | | [place] [address] | REGIONAL | | [place] [address] | LABORATORY | + + + + + + + + | Performing | Address | City/State/Zipcode | Phone Number | | Organization | | | | + + + + + | [facility] | [address] | [place] [address] | | | LABORATORY | | | [...] + + + | [facility] [facility]) [facility] | [facility] | | [place] [address] | REGIONAL | | [place] [address] | LABORATORY | + + + + + + + + | Performing | Address | City/State/Zipcode | Phone Number | | Organization | | | | + + + + + | [facility] | [address] | [place] [address] | | | LABORATORY | | | [...] At | + + + | [facility] [facility]) [facility] | [facility] | | [place] [address] | REGIONAL | | [place] [address] | LABORATORY | + + + + + + + + | Performing | Address | City/State/Zipcode | Phone Number | | Organization | | | | + + + + + | [facility] | [address] | [place] [address] | | | LABORATORY | | | [...] | 75 (H) | <31 mg/dL | [facility] | | | CHOLESTEROL | | | [...] | + + + + + | [facility] DEPARTMENT OF | [address] | [place] [address] | | | PATHOLOGY | [address] [...] | | | | | 20 ng/mL(Solomon DELACRUZ et | | | | | | [...] | | | | | | [address], | | | | | | [place] [address] | | | | | | [phone] | | | | | | | | | | | | [email or web address], | | | | | | Loyda [...] + + | [facility] | [address] | [place], [place] | | | UN[facility] | | [address] | | + + + + + [...] At | + + + | [facility] ([facility]) Justin | [facility] | | [place] [address] | REGIONAL | | [place] [address] | LABORATORY | + + + + + + + + | Performing | Address | City/State/Zipcode | Phone Number | | Organization | | | | + + + + + | [facility] | [address] | [place] [address] | | | LABORATORY | | | [...] + + + + | [facility] | [facility] | [place] [address] | | | GENETICS LABS | [address] | | | | | AVE. [...] DEPARTMENT OF | [address] | [place] [address] | | | PATHOLOGY | [address] [...] | | | DEPARTMENT | | | SURINAMESE | | | OF | | | [...] | + + + + + | [facility] | [address] | [place] [address] | | | PATHOLOGY | [address] [...] | + + + + + | [facility] | [address] | [place] [address] | | | PATHOLOGY | [address] | | | + + + + + documented in this encounter Visit Diagnoses + + | Diagnosis | + + | HIV (human immunodeficiency virus infection) (HCC) Asymptomatic human | | immunodeficiency virus (HIV) infection status | + + documented in this encounter"
--- OUTSIDE RECORDS SUMMARY | ~2020-06-05 | XMS | Encounter Summary ---
Demographics + + + | Address | [address] | | | [place] [address] | + + + | Home Phone | | + + + | Preferred Language | Unknown | + + + | Marital Status | Single | + + + | Baptist Affiliation | Unknown | + + + [...] Team Providers + +------+ + | Care Employee Relations Consultant Name | Role | Phone | + [...] | [address] | [place], | | | | | Mailcode: [id number] | [place] [address] | | | | | [facility] | [phone] | | | | | [place], [place] | | | | | | [address] | | | | | | [phone] | | | +--------+ + + + [...]
--- OUTSIDE RECORDS SUMMARY | ~2020-06-05 | XMS | Encounter Summary ---
Demographics + + + | Address | [address] | | | [place] [address] | + + + | Home Phone | | + + + | Preferred Language | Unknown | + + + | Marital Status | Single | + + + | Methodist Affiliation | Unknown | + + + | Race | Unknown | + + + | Ethnic Group | Unknown | + + + Author + + + | Author | [facility] | | | and [place] | + + + | Organization | [facility] | | | and [place] [...] Team Providers + +------+ + | Care Rotary Drill Rig Operator Name | Role | Phone | + +------+ + | Jerome Young MD | PCP | | + +------+ + Encounter Details +--------+ + + + + | Date | Type | Department | Care Team | Description | +--------+ + + + + | 10/13/ | Hospital | [facility] | Conversion | | | 2014 | Encounter | MEDICAL CENTER | Transaction, | | | | | OUTPATIENT | Provider Unknown | | | | | PROCEDURES [address] | [phone] | | | | | [address] | | | | | | [place], [place] | | | | | | [address] | | | | | | [phone] | | | +--------+ + + + [...] Diagnoses Not on filedocumented in this encounter Additional Health Concerns + + + + + | Infection | Onset Date | Last Indicated | Resolved Time | + + + + + | Methicillin-resistan | 01/14/2014 | 01/14/2014 | | | t Staphylococcus | | | | | aureus | | | | + + + + + documented as of this encounter"
--- OUTSIDE RECORDS SUMMARY | ~2020-06-05 | XMS | Encounter Summary ---
Demographics + + + | Address | [address] | | | [place] [address] | + + + | Home Phone | | + + + | Preferred Language | Unknown | + + + | Marital Status | Single | + + + | Scientologist Affiliation | Unknown | + + + | Race | Unknown | + + + | Ethnic Group | Unknown | + + + Author + + + | Author | [facility] | | | and [place] | + + + | Organization | [facility] | | | and [place] | + + + | Address | Unknown | + + + | Phone | Unavailable | + + + Support + + +---------+ + | Name | Relationship | Address | Phone | + + +---------+ + | Serge Muñoz | ECON | Unknown | | + + +---------+ + | Sharmaine Hathina | ECON | Unknown | | + + +---------+ + Care Team Providers + +------+ + | Care Smoked Meat Preparer Name | Role | Phone | + +------+ + PCP | Unavailable | + +------+ + Encounter Details +--------+ + + + + | Date | Type | Department | Care Team | Description | +--------+ + + + + | 04/13/ | [facility] | [facility] | Ralph Carrion | | | 2010 - | Encounter | MED CTR EMERGENCY | [address] | | | | | CENTER [address] | [address] [facility] | | | 04/14/ | | [place] | [place] [address] | | | 2010 | | [address] | [phone] | | | | | [phone] | | | +--------+ + + + [...] + documented as of this encounter ED Notes Saurabh Rodrigez MD - 04/13/2011 10:37 PM PDTDATE: 04/13/2011 TIME: 1300 ADDENDUM: Received a call from the pharmacy that they did not have the clindamycin prescrib ed by Dr. Carrion so I substituted Septra for 7 days. DICTATED BY: Saurabh Rodrigez MD Emergency Medicine JOB #: [id number] EXT JOB #:[id number] <Electronicall y Signed by Saurabh Rodrigez MD> 04/20/11 0828 Ralph Carrion MD - 04/13/2011 10:37 PM PDTDATE: 04/13/2011 TIME OF EXAM: 2306 CHIEF COMPLAINT: Left ear and face redness and swelling. HISTORY OF PRESENT ILLNESS: Mr. Anderson is a 45-year-old male with history of HIV, presents to the em ergency department with left ear redness, swelling, and pain, as well as left fa cial redness, swellin g, and pain. Symptoms started 3 days ago. Redness, swelling, and pain has increased. He notes that he had a temperature of 99.6 at home. No fevers of any higher than this. He does not note any pain of t he mastoid, no pain in the eye, no pain in the j aw or teeth. He has no swelling in the mouth or throa t. No difficulty swallowing or breath ing. He does not had a headache. He has no change in his vision. No pain with eye movements . No other symptoms or complaints including no runny nose, sinus congestio n or pain, sore throat, cough, difficulty breathing, abdomen pain, vomiting, diarrhea, dysuria, hemat uria, flank pain, skin rashes, or lesions other than the left face as described. PAST MEDICAL HISTORY: HIV, asthma, COPD. FAMILY HISTORY: Noncontributory. SOCIAL HISTORY: Smokes cigarettes. Denies street drug use. MEDICATIONS: See nurse's notes for complete list of medications. ALLERGIES: Please see nurse's note for allergies. REVIEW OF SYSTEMS: Noted in HPI, otherwise negative. PHYSICAL EXAMINATION VITAL SIGNS: Blood pressure 114/68, heart rate 98, respiratory rate 20, temperature 98.3, oxygen sat uration 94%. GENERAL: Nontoxic appearing, in no acute distress. HEENT: Normocephalic. Does have erythema and swelling of the left cheek down over the left jaw and o clifton the left ear. He has no mastoid fluctuance or tenderness. External auditory canal appears normal. Tympanic membrane appears normal. There is no evidence of eye involve ment on exam. Extraocular motio ns are full and intact. There is no proptosis or swelling o r redness surrounding the eye. His pupils are equal, round, and reactive to light. Extraocu lar motions are intact. Oropharynx is moist and serra nt. No evidence of dental infection. NECK: Supple. He does have some left-sided lymphadenopathy. No meningismus. LUNGS: The patient is in no respiratory distress. ABDOMEN: Nontender. SKIN: Otherwise intact without rashes or lesions. NEUROLOGIC: Patient is alert, oriented, appropriate. Normal strength and sensation through out extrem ities. LABORATORY DATA: Complete blood cell count obtained, results within normal limits. District Manager In Training ry panel s ignificant for chloride 95, glucose 134. Remainder of electrolytes and kidney fu nction tests within n ormal limits. Blood culture was obtained and pending. HOSPITAL COURSE: The patient received an IV dose of clindamycin, Dilaudid, and a liter of normal humberto ine. Given that he is afebrile, has not been febrile at home, has normal white b lood cell count, will initiate treatment as an outpatient. Continue clindamycin for 7 days. Follow up closely with primary doctor. Return to the emergency department immediately with fevers, worsening redness, swelling, any eye involvement, or other concerning symptoms. Th e patient is agreeable. He is discharged in stable condition. DIAGNOSIS: CELLULITIS, LEFT FACE AND EAR. PLAN: Noted above. DICTATED BY: Ralph Carrion MD Emergency Medicine JOB #: [id number] EXT JOB #:[id number] <Electronicall y Signed by Ralph Carrion MD> 04/14/112153 documented in this encounter Plan of Treatment Not on filedocumented as of this encounter Procedures + +--------+ + + + | Procedure Name | Priori | Date/Time | Associated Diagnosis | Comments | | | ty | | | | + +--------+ + + + | CBC WITH | Routin | 04/13/2011 | | Results for this | | DIFFERENTIAL | e | 11:39 PM | | procedure are in the | | | | PDT | | results section. | + +--------+ + + + | BASIC METABOLIC | Routin | 04/13/2011 | | Results for this | | PANEL | e | 11:39 PM | | procedure are in the | | | | PDT | | results section. | + +--------+ + + + documented in this encounter Results CBC with Differential (04/13/2011 11:39 PM PDT) + + + + + + | Component | Value | Ref Range | Performed | Pathologist | | | | | At | Signature | + + + + + + | White Blood | 9.0 | 4.0 - 11.0 K/uL | [facility] | | | Cells | | | [facility] | | | | | | MEDICAL | | | | | | CENTER - | | | | | | LABORATORY | | + + + + + + | Red Blood | 4.63 | 4.30 - 5.70 | [facility] | | | Cells | | M/uL | [facility] | | | | | | MEDICAL | | | | | | CENTER - | | | | | | LABORATORY | | + + + + + + | Hemoglobin | 14.2 | 13.5 - 18.0 | [facility] | | | | | gm/dL | [facility] | | | | | | [facility] | | | | | | CENTER - | | | | | | LABORATORY | | + + + + + + | Hematocrit | 42.4 | 40.0 - 51.0 % | [facility] | | | | | | [facility] | | | | | | [facility]ICAL | | | | | | CENTER - | | | | | | LABORATORY | | + + + + + + | MCV | 91.8 | 83.0 - 101.0 fL | [facility] | | | | | | [facility] | | | | | | [facility]ICAL | | | | | | CENTER - | | | | | | LABORATORY | | + + + + + + | MCH | 30.8 | 28.0 - 35.0 pg | [facility] | | | | | | [facility] | | | | | | MEDICAL | | | | | | CENTER - | | | | | | LABORATORY | | + + + + + + | MCHC | 33.5 | 32.0 - 36.0 | [facility] | | | | | g/dL | [facility] | | | | | | MEDICAL | | | | | | CENTER - | | | | | | LABORATORY | | + + + + + + | RDW-CV | 14.4 | <15.0 % | [facility] | | | | | | [facility] | | | | | | MEDICAL | | | | | | CENTER - | | | | | | LABORATORY | | + + + + + + | Platelet | 197 | 140 - 440 K/uL | [facility] | | | Count | | | [facility] | | | | | | MEDICAL | | | | | | CENTER - | | | | | | LABORATORY | | + + + + + + | % | 76.4 (H) | 45 - 75 % | [facility] | | | Neutrophils | | | [facility] | | | | | | MEDICAL | | | | | | CENTER - | | | | | | LABORATORY | | + + + + + + | % | 17.3 (L) | 20 - 45 % | [facility] | | | Lymphocytes | | | [facility] | | | | | | MEDICAL | | | | | | CENTER - | | | | | | LABORATORY | | + + + + + + | % Monocytes | 4.7 | 4 - 12 % | [facility] | | | | | | [facility] | | | | | | MEDICAL | | | | | | CENTER - | | | | | | LABORATORY | | + + + + + + | % | 1.2 | 0 - 5 % | [facility] | | | Eosinophils | | | [facility] | | | | | | MEDICAL | | | | | | CENTER - | | | | | | LABORATORY | | + + + + + + | % Basophils | 0.4 | 0 - 1 % | [facility] | | | | | | [facility] | | | | | | [facility]ICAL | | | | | | CENTER - | | | | | | LABORATORY | | + + + + + + | Absolute | 6.9 (H) | 1.5 - 6.6 K/uL | [facility] | | | Neutrophils | | | [facility] | | | | | | MEDICAL | | | | | | CENTER - | | | | | | LABORATORY | | + + + + + + | Absolute | 1.6 | 0.6 - 3.2 K/uL | [facility] | | | Lymphocytes | | | [facility] | | | | | | MEDICAL | | | | | | CENTER - | | | | | | LABORATORY | | + + + + + + | Absolute | 0.4 | 0.0 - 1.0 K/uL | [facility] | | | Monocytes | | | [facility] | | | | | | MEDICAL | | | | | | CENTER - | | | | | | LABORATORY | | + + + + + + | Absolute | 0.1 | 0.0 - 0.4 K/uL | [facility] | | | Eosinophils | | | [facility] | | | | | | MEDICAL | | | | | | CENTER - | | | | | | LABORATORY | | + + + + + + | Absolute | 0.0 | 0.0 - 0.1 K/uL | [facility] | | | Basophils | | | [facility] | | | | | | MEDICAL | | | | | | CENTER - | | | | | | LABORATORY | | + + + + + + + + | Specimen | + + | | + + + + + + + | Performing | Address | City/State/Zipcode | Phone Number | | Organization | | | | + + + + + | [facility] | [address] | [place] | [phone] | | [facility] | | [address] | | | - LABORATORY | | | | + + + + + | [facility] | [address] | [place] | | | [facility] | | [address] | | | - LABORATORY | | | | + + + + + Basic Metabolic Panel (04/13/2011 11:39 PM PDT) + + + + + + | Component | Value | Ref Range | Performed | Pathologist | | | | | At | Signature | + + + + + + | Glucose | 134 (H) | 70 - 109 mg/dL | [facility] | | | | | | [facility] | | | | | | MEDICAL | | | | | | CENTER - | | | | | | LABORATORY | | + + + + + + | Calcium | 9.9 | 8.3 - 10.5 | [facility] | | | | | mg/dL | [facility] | | | | | | MEDICAL | | | | | | CENTER - | | | | | | LABORATORY | | + + + + + + | BUN | 14 | 7 - 18 mg/dL | [facility] | | | | | | [facility] | | | | | | MEDICAL | | | | | | CENTER - | | | | | | LABORATORY | | + + + + + + | Creatinine | 0.85 | 0.60 - 1.30 | [facility] | | | | | mg/dL | [facility] | | | | | | MEDICAL | | | | | | CENTER - | | | | | | LABORATORY | | + + + + + + | Estimated | >60Comment: For | >60 mL/min/A | [facility] | | | GFR | -Americans, | | [facility] | | | | please multiply the | | MEDICAL | | | | result by 1.210 | | CENTER - | | | | This is an estimated | | LABORATORY | | | | GFR and is based on | | | | | | a standard body | | | | | | mass and serum | | | | | | creatinine | | | | + + + + + + | BUN/Creatin | 16.5 | 12 - 20 | [facility] | | | ine Ratio | | | [facility] | | | | | | MEDICAL | | | | | | CENTER - | | | | | | LABORATORY | | + + + + + + | Na | 137 | 136 - 149 mEq/L | [facility] | | | | | | [facility] | | | | | | [facility] | | | | | | CENTER - | | | | | | LABORATORY | | + + + + + + | K | 3.7 | 3.5 - 5.1 mEq/l | [facility] | | | | | | [facility] | | | | | | MEDICAL | | | | | | CENTER - | | | | | | LABORATORY | | + + + + + + | Cl | 95 (L) | 98 - 109 mEq/l | [facility] | | | | | | [facility] | | | | | | MEDICAL | | | | | | CENTER - | | | | | | LABORATORY | | + + + + + + | CO2 | 27 | 24 - 31 mEq/L | [facility] | | | | | | [facility] | | | | | | MEDICAL | | | | | | CENTER - | | | | | | LABORATORY | | + + + + + + | Anion Gap | 18.7 (H) | 6.0 - 17.0 | [facility] | | | | | | [facility] | | | | | | MEDICAL | | | | | | CENTER - | | | | | | LABORATORY | | + + + + + + + + | Specimen | + + | | + + + + + + + | Performing | Address | City/State/Zipcode | Phone Number | | Organization | | | | + + + + + | [facility] | [address] | [place] | [phone] | | [facility] | | [address] | | | - LABORATORY | | | | + + + + + | [facility] | [address] | [place] | | | [facility] | | [address], [facility] [[email or web address]] | | | - LABORATORY | | | | + + + + + documented in this encounter Visit Diagnoses Not on filedocumented in this encounter"
--- OUTSIDE RECORDS SUMMARY | ~2020-06-05 | XMS | Encounter Summary ---
Demographics + + + | Address | [address] | | | [place] [address] | + + + | Home Phone | | + + + | Preferred Language | Unknown | + + + | Marital Status | Single | + + + | Orthodoxy Affiliation | Unknown | + + + | Race | White | + + + | Ethnic Group | Not or | + + + Author + + + | Author | [facility] | + + + | Organization | [facility] | + + + | Address | Unknown | + + + | Phone | Unavailable | + + + Support + + +---------+ + | Name | Relationship | Address | Phone | + + +---------+ + | Skyler Todd | ECON | Unknown | | + + +---------+ + Care Team Providers + +------+ + | Care Waste Collector Name | Role | Phone | + +------+ + | Faustina Henao MD | PCP | | + +------+ + Encounter Details +--------+ + + + + | Date | Type | Department | Care Team | Description | +--------+ + + + + | 09/20/ | Hospital | Diagnostic | | | | 2009 | Encounter | [facility] | | | | | | [address] | | | | | | [address] [facility] | | | | | | [place], [address] [place] [address] | | | | | | [place], [place] | | | | | | [address] | | | | | | [phone] | | | +--------+ + + + [...] +---------+ + + | darunavir | Take 2 Tabs by mouth | 60 Tab | 11 | 09/04/20 | | | (PREZISTA) 400 mg | once daily with | | | 10 | | | Oral | breakfast. Take with | | | | | | TabletIndications: | food and Norvir | | | | | | HIV (human | (ritonavir). | | | | | | immunodeficiency | | | | | | | virus infection) | | | | | | | (HCC) | | | | | | + + + +---------+ + + | FLUTICASONE | Inhale 2 Puffs two | | 0 | 09/04/20 | | | PROPIONATE (FLOVENT | times daily. | | | 10 | | | [facility]) | | | | | | + + + +---------+ + + | pravastatin 20 mg | Take 1 Tab by mouth | 30 Tab | 11 | 09/20/20 | | | Oral | once daily at | | | 10 | | | TabletIndications: | bedtime. | | | | | | Hyperlipidemia LDL | | | | | | | goal < 100 | | | | | | + + + +---------+ + + | zolpidem 10 mg | Take 1 Tab by mouth | 14 Tab | 0 | 09/20/20 | | | Oral Tablet | once daily at | | | 10 | | | | bedtime as needed | | | | | | | for sleep. | | | | | + + + +---------+ + + documented as of this encounter Plan of Treatment Not on filedocumented as of this encounter Procedures + +--------+ + + + | Procedure Name | Priori | Date/Time | Associated Diagnosis | Comments | | | ty | | | | + +--------+ + + + | X-RAY FEMUR 2 VIEWS | Routin | 09/20/2010 | Hip pain, | Results for this | | BILATERAL | e | 1:12 PM | bilateral | procedure are in the | | | | PST | | results section. | + +--------+ + + + documented in this encounter Results X-RAY FEMUR 2 VIEWS BILATERAL (09/20/2010 1:12 PM PST) + + + + + + | Component | Value | Ref Range | Performed | Pathologist | | | | | At | Signature | + + + + + + | FEMUR 2 | STUDY: FEMUR 2 VIEWS | | | | | VIEWS | BILATERAL 09/20/10 | | | | | BILATERAL | 13:12:00 COMPARISON: | | | | | | None FINDINGS:The bones | | | | | | are intact without | | | | | | fracture or focal | | | | | | destruction. RIGHT: | | | | | | There is mild spurring | | | | | | the superolateral | | | | | | acetabulum andfemoral | | | | | | head. The adjacent | | | | | | joint spaces and soft | | | | | | tissues appearnormal. | | | | | | LEFT:The bones are | | | | | | intact without fracture | | | | | | or focal destruction. | | | | | | There ismild spurring of | | | | | | the left superolateral | | | | | | acetabulum | | | | | | andtricompartmental | | | | | | spurring of the knee. | | | | | | The adjacent joint | | | | | | spaces andsoft tissues | | | | | | otherwise appear normal. 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 Otherwise | | | | | | unremarkable exam of the | | | | | | bilateral femurs. END | | | | | | IMPRESSION I have | | | | | | personally viewed this | | | | | | procedure/exam and | | | | | | reviewed this report. | | | | | | Author: DAVON | | | | | | KEITH,Reviewer: JESSE | | | | | | Soy PRITCHARD. STATUS FINAL | | | | | | / Dr. JESSE PRITCHARD | | | | + + + + + + + + | Specimen | + + | | + + + +---------+ + + | Performing | Address | City/State/Zipcode | Phone Number | | Organization | | | | + +---------+ + + | [facility] DEPARTMENT OF | | | | | RADIOLOGY | | | | + +---------+ + + documented in this encounter Visit Diagnoses + + | Diagnosis | + + | Hip pain, bilateral Pain in joint, pelvic region and thigh | + + documented in this encounter"
--- OUTSIDE RECORDS SUMMARY | ~2020-06-05 | XMS | Encounter Summary ---
Demographics + + + | Address | [address] | | | [place] [address] | + + + | Home Phone | | + + + | Preferred Language | Unknown | + + + | Marital Status | Single | + + + | Jewish Affiliation | Unknown | + + + | Race | Unknown | + + + | Ethnic Group | Unknown | + + + Author + + + | Author | [facility] | | | and [place] | + + + | Organization | [facility] | | | and [place] [...] Providers + +------+ + | Care Medical Doctor Name | Role | Phone | + +------+ + | Jerome Young MD | PCP | | + +------+ + Encounter Details +--------+ + + + + | Date | Type | Department | Care Team | Description | +--------+ + + + + | 10/31/ | Emergency | [facility] | Rahda Feliz, | Right arm pain; | | 2013 | | [facility] | DO [address] | Thoracic outlet | | | | EMERGENCY CENTER | [place] [address] | syndrome | | | | [address] | [phone] | | | | | [place], [place] | | | | | | [address] | | | | | | [phone] | | | +--------+ + + + [...] documented as of this encounter ED Notes Radha Feliz DO - 10/31/2014 6:09 AM PSTFormatting of this note might be different fro m the original. ED Provider Notes by Radha Feliz DO at 10/31/14608 Author: Radha Feliz DO Service: Emergency Department Author Type: Physician Filed: 11/01/14 2318 Date of Service: 10/31/14608 Status: Signed Sergeant Of Officers: Radha Feliz DO (Physician) Procedures Additional Documentation Procedures [facility] Department of Emergency Medicine 6:09 AM History of Present Illness Patient Identification Slava Anderson is a 49 y.o. male. Patient information was obtained from patient. History/Exam limitations: none. Patient presented to the Emergency Department by: Nehemiah Alfonso 1821 Chief Complaint Chief Complaint Patient presents with Arm Pain R arm, pt had PICC line removed 3 days ago Numbness R arm 49 y.o. male presents to the ED complaining of L arm numbness. Onset of symptoms was 7 PM last night, with a constant course since that time. The patient states he woke up at 4AM thi s morning with his fingers "burning" and states it feels like there are "1000 pins and needl es" in arm. The patient states the pain goes from his armpit to his hand.The patient describ es the symptoms as moderate. The patient reports movement worsens symptoms, and nothing impr oves symptoms. The patient has no other complaints at this time. Patient denies pain in neck , CP, leg swelling, or any other symptoms. No care DIRECTOR TRANSLATION reported. Patient states he had a PIC C line removed 3 days ago but his symptoms are in his opposite arm. PCP: No primary provider on file. Past Medical History Diagnosis Date HIV (human immunodeficiency virus infection) Muscle spasms of neck Hyperlipidemia Cholelithiasis COPD (chronic obstructive pulmonary disease) Chronic mastoiditis Multiple joint pain 05/14/2013 Other chronic pain Neurosyphilis in male Blurred vision, bilateral Past Surgical History Procedure Laterality Date Tonsillectomy Fistula repair Tympanoplasty Prior to Admission medications Medication Sig Start Date End Date Taking? Authorizing Provider albuterol (PROVENTIL) (2.5 MG/3ML) 0.083% nebulizer solution inhale contents of 1 vial in n ebulizer every 4 hours if needed for shortness of breath 09/17/13 Yes GAYLA Cary Darunavir Ethanolate 800 MG TABS Take 800 mg by mouth daily. 03/16/14 03/16/15 Yes Zita basurto MD emtricitabine-tenofovir (TRUVADA) 200-300 MG per tablet Take 1 tablet by mouth daily. 4 03/16/15 Yes Zita Enriquez MD etodolac (LODINE XL) 500 MG 24 hr tablet Take 1 tablet by mouth daily. 07/17/14 07/17/15 Yes Be njamin D Gold, DO fluticasone (FLOVENT HFA) 220 MCG/ACT inhaler Inhale 1 puff into the lungs 2 (two) times da laverne. Yes Historical Provider ritonavir (NORVIR) 100 MG TABS tablet Take 100 mg by mouth daily. 03/16/14 03/16/15 Yes Zita Enriquez MD HYDROcodone-acetaminophen (NORCO) 5-325 MG per tablet Take 1 tablet by mouth every 6 (six) hours as needed for Pain. 07/01/14 07/11/14 WANDA Jenkins nicotine (NICODERM CQ) 21 MG/24HR Place 1 patch onto the skin daily. 10/24/14 11/23/14 Pan Ortiz MD No Known Allergies History Social History Marital Status: Single Spouse Name: N/A Number of Children: 0 Years of Education: N/A Occupational History Not on file. Social History Main Topics Smoking status: Current Every Day Smoker -- 1.00 packs/day for 30 years Types: Cigarettes Smokeless tobacco: Never Used Alcohol Use: No Drug Use: Yes Special: Marijuana Comment: medical card Sexual Activity: Partners: Male Control/ Protection: Condom Other Topics Concern Not on file Social History Narrative Local resident , full code, no falls. Family History Problem Relation Age of Onset Other (see comments) Mother adopted Other (see comments) Father adopted Review of Systems Constitutional: Negative for fever, chills Negative for fatigue Negative for decreased appetite Eyes: Negative for vision changes or photophobia Nose: Negative for congestion, nose bleeds or rhinorrhea Throat: Negative for sore throat or swelling CV/Resp: Negative for chest pain Negative for mqxmslajl-fi-epkihy Negative for cough GI: Negative for abdominal pain Negative for nausea Negative for vomiting Negative for constipation Negative for diarrhea : Negative for urinary frequency Negative for pain with urination Musculoskeletal: Positive for R arm pain and numbness Negative for back pain, joint pain, Negative for neck pain or stiffness. Skin: Negative for rash Neuro/Psych: Negative for headache Negative for focal weakness or numbness Endocrine: Heme: All other systems reviewed and negative except as noted. Physical Exam BP 134/83 | Pulse 129 | Temp(Src) 98.1 F (36.7 C) (Oral) | Resp 15 | Wt 90.719 kg (200 lb) | SpO2 96% Vital signs interpretation: Tachycardic, tachypneic, otherwise normal. Pulse Oximetry interpretation: Normal General: Alert, in no apparent distress Eyes: Normal inspection, pupils equal and round, non-icteric, EOM's intact ENT: Ears normal Nose normal Pharynx normal, mucous membranes are moist. Neck: Normal inspection Supple, no lymphadenopathy Non-tender to palpation. Specifically no C-spine tenderness. No masses. Cardiovascular: Rate and rhythm normal No murmurs, clicks or rubs Heart sounds are easily auscultated Chest non-tender to palpation Respiratory: Decreased breath sounds bilaterally, moderate rhonchi Abdomen: Soft, non-tender, non-distended No guarding or rebound No masses. No pulsatile masses. Back: Normal inspection, no CVA tenderness or spinal tenderness Skin: Color normal Warm and dry No rash Extremities: Moderate tenderness in the R axilla, some mild axillary lymphadenopathy. He does have tenderness in the soft tissues of his right arm diffusely though this does seem sl ightly more prominent in his hand. However symmetric ulnar and radial pulses bilaterally wi th no difference in the warmth or color of the arms. They are both warm and well perfused. There is slight non-pitting edema in his left hand a positive tinnel sign. Neuro: Alert, no AMS, speech is clear. No gross motor/sensory deficits Medical Decision Making and Emergency Department Course ED Department Course Patient presents to ED with complaints of R arm numbness and tingling with diffuse tenderne ss throughout the arm and mild right hand swelling on exam. I do now know how this could re late to his recent dx of syphylis, particularly no motor deficits. I suppose there could be a RUE DVT so we will rule this out with duplex. On exam the patient has decreased breath so unds bilaterally, moderate rhonchi however he states he is no longer short of breath and his cough is improving. I do not think his lung exam findings to relate to his arm pain. It i s also unlikely ACS however I will get a screening EKG and troponin. I also did consider PE however his HPI braun snot fit PE (no chest pain and shortness of breath has been improving a nd specifically did not get worse with the onset of his right arm pain). Will order lab wo rk, CXR, US of upper extremity, and reevaluate the patient. Patient is stable at this time. Discharge 11:01 AM Reexamined patient. No change in exam. Patient is stable and feeling better at th is time. Discussed with patient lab and CXR results. I discussed all ED results and my clini caryn impression with the patient. Patient is ready for discharge after discharge instruction and referral for an orthopedist. I advised patient to follow up with a PCP and we discussed the emergent signs and symptoms that would necessitate a return to ED. The patient understan ds and agrees with the plan. All questions and concerns addressed. Will discharge home with Rx for Percocet. The patient agrees to return to the ED immediately if any problems or conc erns. Medications morphine injection 4 mg (4 mg Intravenous Given 10/31/14644) ondansetron (ZOFRAN) injection 4 mg (4 mg Intravenous Given 10/31/14644) fentaNYL (SUBLIMAZE) injection 100 mcg (100 mcg Intravenous Given 10/31/14852) Records Reviewed Old medical records. Nursing notes. Nursing notes. Nursing notes reviewed for chief complaint, medications, clinical presentati on and vital signs. Old ED records reviewed ([facility] the records with regard to the past medical/surgical history, previous medic ations, and allergies). Laboratory Evaluation Results Procedure Component Value Ref Range Date/Time Sedimentation Rate (ESR) [[id number]] (Abnormal) Collected: 10/31/14644 Order Status: Completed Updated: 10/31/14810 Specimen Information: Blood ESR 37 (H) 0 - 15 mm/Hr BNP [[id number]] Collected: 10/31/14644 Order Status: Completed Updated: 10/31/14756 Specimen Information: Blood BRAIN NATRIURETIC PEPTIDE 22.0 0 - 100 pg/mL C-reactive protein [[id number]] (Abnormal) Collected: 10/31/14644 Order Status: Completed Updated: 10/31/14751 Specimen Information: Blood CRP 0.7 (H) <0.5 mg/dL Magnesium [[id number]] Collected: 10/31/14644 Order Status: Completed Updated: 10/31/14751 Specimen Information: Blood MAGNESIUM 2.0 1.7 - 2.4 mg/dL Phosphorus [[id number]] Collected: 10/31/14644 Order Status: Completed Updated: 10/31/14751 Specimen Information: Blood PHOSPHORUS 4.0 2.3 - 4.8 mg/dL Comprehensive metabolic panel [[id number]] (Abnormal) Collected: 10/31/14644 Order Status: Completed Updated: 10/31/14751 Specimen Information: Blood SODIUM 138 135 - 143 mmol/L POTASSIUM 3.8 3.5 - 4.9 mmol/L CHLORIDE 104 99 - 109 mmol/L CO2 28 23 - 32 mmol/L ANION GAP AGAP 10 5 - 20 mmol/L GLUCOSE 98 65 - 99 mg/dL BUN 20 8 - 25 mg/dL CREATININE 0.82 0.70 - 1.30 mg/dL BUN/CREAT 24 CALCIUM 8.5 8.5 - 10.2 mg/dL TOTAL PROTEIN 8.0 6.3 - 8.2 g/dL Albumin 3.3 (L) 3.6 - 5.0 g/dL GLOBULIN 4.6 1.3 - 4.9 g/dL A/G 0.7 (L) 1.0 - 2.4 TBIL 0.3 0.1 - 1.5 mg/dL ALK PHOS 89 35 - 115 U/L AST 18 10 - 45 U/L ALT 19 10 - 65 U/L EGFR >60 >60 mL/min/1.73m2 Troponin I, Lab [[id number]] Collected: 10/31/14644 Order Status: Completed Updated: 10/31/14751 Specimen Information: Blood TROPONIN I <0.020 0.00 - 0.10 ng/mL aPTT [[id number]] Collected: 10/31/14644 Order Status: Completed Updated: 10/31/14734 Specimen Information: Blood APTT 25 23 - 32 seconds Protime-INR [[id number]] Collected: 10/31/14644 Order Status: Completed Updated: 10/31/14734 Specimen Information: Blood INR 1.0 CBC with differential [[id number]] (Abnormal) Collected: 10/31/14644 Order Status: Completed Updated: 10/31/14730 Specimen Information: Blood WBC 8.1 3.8 - 11.0 K/uL RBC 4.83 4.20 - 5.70 M/uL HGB 12.5 (L) 13.2 - 17.0 g/dL HCT 38.1 (L) 39.0 - 50.0 % MCV 78.9 (L) 80.0 - 100.0 fl MCH 26.0 (L) 27.0 - 34.0 pg MCHC 32.9 32.0 - 35.5 g/dL RDW SD 47.7 37 - 53 fl PLT 260 150 - 400 K/uL MPV 8.2 fl DIFF TYPE AUTOMATED NEUTROPHILS 41.3 % LYMPHOCYTES 51.5 % MONOCYTES 5.5 % EOSINOPHILS 1.4 % BASOPHILS 0.3 % NEUTROPHILS ABS 3.4 1.9 - 7.4 K/uL LYMPHOCYTES ABS 4.2 (H) 1.0 - 3.9 K/uL MONOCYTES ABS 0.4 0 - 0.8 K/uL EOSINOPHILS ABS 0.1 0 - 0.5 K/uL BASOPHILS ABS 0.0 0 - 0.1 K/uL I personally reviewed the lab results and they have been posted to the chart. Pertinent po sitive and negative findings have been addressed appropriately. Radiology and EKG Evaluation EKG performed at 818am Sinus tach 105 bpm. Some artifact present Q wave in lead 3 Normal axis Intervals normal No significant ST-T segment abnormalities Normal T wave morphology No acute ischemia. Interpreted by by me at time of service Imaging Results XR chest PA and lateral (Final result) Result time: 10/31/14 08:35:56 Final result by Rad Results In Melquiades (10/31/14 08:35:56) Impression: 1. No acute findings. Narrative: SLAVA ANDERSON XR CHEST 2 VIEW FRONTAL AND LATERAL 10/31/2014 8:06 AM HISTORY: Shortness of breath. TECHNIQUE: 2 views of the chest. FINDINGS: Compared with 10/24/14. Heart size is normal. No acute infiltrates or evidence of edema. Th e left PICC has been removed. No pneumothorax or pleural effusions. Moderate thoracic spondy losis. US upper extremity venous right (Final result) Result time: 10/31/14 07:59:36 Final result by Rad Results In Melquiades (10/31/14 07:59:36) Impression: 1. No evidence of right upper extremity venous thrombosis. Narrative: SLAVA ANDERSON US UPPER EXTREMITY VENOUS RIGHT 10/31/2014 7:24 AM HISTORY: Right arm pain and swelling. Status post removal of the PICC line. TECHNIQUE: Ultrasound of the veins of the right arm was performed using duplex technique. FINDINGS: No comparison. The veins of the right arm demonstrate color flow and compressibility where possible. There was respiratory variation and augmentation noted. ED Diagnoses Final diagnoses Right arm pain Thoracic outlet syndrome Disposition: ED Disposition Discharge Condition at discharge: Stable Follow-up Information Follow up With Details Comments Contact Info [facility] Emergency Department If symptoms worsen [address] [facility] [id number] [facility] [place] In 4 weeks For recheck [address] [facility] [address] Discharge Medications: Discharge Medication List as of 10/31/2014 12:24 PM START taking these medications Details oxyCODONE-acetaminophen (PERCOCET) 5-325 MG per tablet Take 1-2 tablets by mouth every 4 (f our) hours as needed for Pain., Starting 10/31/2014, Until Yue 11/10/14, Print Attending Note: Documentation assistance provided by Sarita Ashley (Scribe). Information recorded by the scribe has been reviewed and validated by me. Manuel williamson with its contents. DO Radha Vela DO 11/01/14 8990 documented in this e ncounter Plan of Treatment Not on filedocumented as of this encounter Procedures + +--------+ + + + | Procedure Name | Priori | Date/Time | Associated Diagnosis | Comments | | | ty | | | | + +--------+ + + + | ECG 12 LEAD | Routin | 10/31/2014 | | Results for this | | | e | 8:18 AM | | procedure are in the | | | | PST | | results section. | + +--------+ + + + | XR CHEST 2 VIEWS | Routin | 10/31/2014 | | Results for this | | | e | 8:06 AM | | procedure are in the | | | | PST | | results section. | + +--------+ + + + | VAS UPPER EXTREMITY | Routin | 10/31/2014 | | Results for this | | VENOUS RIGHT | e | 8:01 AM | | procedure are in the | | | | PST | | results section. | + +--------+ + + + | EXTERNAL LAB: CBC | Routin | 10/31/2014 | | Results for this | | | e | 6:45 AM | | procedure are in the | | | | PST | | results section. | + +--------+ + + + | TROPONIN I | Routin | 10/31/2014 | | Results for this | | | e | 6:45 AM | | procedure are in the | | | | PST | | results section. | + +--------+ + + + | PTT | Routin | 10/31/2014 | | Results for this | | | e | 6:45 AM | | procedure are in the | | | | PST | | results section. | + +--------+ + + + | SEDIMENTATION RATE, | Routin | 10/31/2014 | | Results for this | | AUTOMATED | e | 6:45 AM | | procedure are in the | | | | PST | | results section. | + +--------+ + + + | PROTIME INR | Routin | 10/31/2014 | | Results for this | | | e | 6:45 AM | | procedure are in the | | | | PST | | results section. | + +--------+ + + + | C-REACTIVE PROTEIN | Routin | 10/31/2014 | | Results for this | | | e | 6:45 AM | | procedure are in the | | | | PST | | results section. | + +--------+ + + + | PHOSPHORUS | Routin | 10/31/2014 | | Results for this | | | e | 6:45 AM | | procedure are in the | | | | PST | | results section. | + +--------+ + + + | B TYPE NATRIURETIC | Routin | 10/31/2014 | | Results for this | | PEPTIDE | e | 6:45 AM | | procedure are in the | | | | PST | | results section. | + +--------+ + + + | MAGNESIUM | Routin | 10/31/2014 | | Results for this | | | e | 6:45 AM | | procedure are in the | | | | PST | | results section. | + +--------+ + + + | COMPREHENSIVE | Routin | 10/31/2014 | | Results for this | | METABOLIC PANEL | e | 6:45 AM | | procedure are in the | | | | PST | | results section. | + +--------+ + + + documented in this encounter Results ECG 12 lead (10/31/2014 8:18 AM PST) + + + + + + | Component | Value | Ref Range | Performed | Pathologist | | | | | At | Signature | + + + + + + | DIAGNOSIS: | Sinus | | EXTERNAL | | | | tachycardiaOtherwise | | LAB | | | | normal ECGWhen compared | | | | | | with ECG of 22-OCT-2014 | | | | | | 10:36,No significant | | | | | | change was foundThis ECG | | | | | | contains Unconfirmed | | | | | | Interpretation | | | | | | Statements. See ED | | | | | | Record for Physician | | | | | | Interpretation. | | | | | | Confirmed by MUSE READ | | | | | | ONLY, -COMPUTER ([id number]), | | | | | | primary class teacher JUANA CHRISTIAN ([id number]) | | | | | | on 10/31/2014 1:14:16 | | | | | | PM | | | | + + + + + + + + | Specimen | + + | | + + + + + | Narrative | Performed At | + + + | [facility] | EXTERNAL LAB | + + + + +---------+ + + | Performing | Address | City/State/Zipcode | Phone Number | | Organization | | | | + +---------+ + + | EXTERNAL LAB | | | | + +---------+ + + XR Chest 2 Vws (10/31/2014 8:06 AM PST) + + | Specimen | + + | | + + + + + | Impressions | Performed At | + + + | 1. No acute findings. | | + + + + + + | Narrative | Performed At | + + + | SLAVA TRIMBLE CHEST 2 VIEW FRONTAL AND LATERAL 10/31/2014 8:06 | | | AM HISTORY: Shortness of breath. TECHNIQUE: 2 views of the | | | chest. FINDINGS: Compared with 10/24/14. Heart size is normal. No | | | acute infiltrates or evidence of edema. The left PICC has been | | | removed. No pneumothorax or pleural effusions. Moderate thoracic | | | spondylosis. | | + + + + -------+ | Procedure Note | + -------+ | Amaury Arnett Conversion - 06/25/2019 11:46 AM PDT SLAVA ANDERSONNAI CHEST 2 VIEW FRONTAL | | AND [id number]/31/2014 8:06 AM HISTORY:Shortness of breath. TECHNIQUE:2 views of the | | chest. FINDINGS:Compared with 10/24/14. Heart size is normal. No acute infiltrates or | | evidence of edema. The left PICC has been removed. No pneumothorax or pleural effusions. | | Moderate thoracic spondylosis. IMPRESSION: 1. No acute findings. | | | |TECHNIQUE: | |2 views of the chest. | | | |FINDINGS: | |Compared with 10/24/14. Heart size is normal. No acute infiltrates or evidence of edema. Th e left PICC has been removed. No pneumothorax or pleural effusions. Moderate thoracic spondy losis. | | | |IMPRESSION: | |1. No acute findings. | | | | | + -------+ VAS Upper Extremity Venous Right (10/31/2014 8:01 AM PST) + + | Specimen | + + | | + + + + + | Impressions | Performed At | + + + | 1. No evidence of right upper extremity venous thrombosis. | | | | | + + + + + + | Narrative | Performed At | + + + | SLAVA ANDERSON UPPER EXTREMITY VENOUS RIGHT 10/31/2014 7:24 AM | | | HISTORY: Right arm pain and swelling. Status post removal of the | | | PICC line. TECHNIQUE: Ultrasound of the veins of the right arm | | | was performed using duplex technique. FINDINGS: No comparison. | | | The veins of the right arm demonstrate color flow and compressibility | | | where possible. There was respiratory variation and augmentation | | | noted. | | + + + + + | Procedure Note | + + | Amaury Arnett Conversion - 06/25/2019 11:46 AM PDT SLAVA DAILEY UPPER EXTREMITY VENOUS | | RIGHT10/31/2014 7:24 AM HISTORY:Right arm pain and swelling. Status post removal of the | | PICC line. TECHNIQUE:Ultrasound of the veins of the right arm was performed using duplex | | technique. FINDINGS:No comparison. The veins of the right arm demonstrate color flow | | and compressibility where possible. There was respiratory variation and augmentation | | noted. IMPRESSION: 1. No evidence of right upper extremity venous thrombosis. | | | |TECHNIQUE: | |Ultrasound of the veins of the right arm was performed using duplex technique. | | | |FINDINGS: | |No comparison. The veins of the right arm demonstrate color flow and compressibility where possible. There was respiratory variation and augmentation noted. | | | |IMPRESSION: | |1. No evidence of right upper extremity venous thrombosis. | | | | | + + Troponin I (10/31/2014 6:45 AM PST) + + + + + + | Component | Value | Ref Range | Performed | Pathologist | | | | | At | Signature | + + + + + + | Troponin I, | <0.020Comment: 0.00 to | 0.00 - 0.10 | EXTERNAL | | | Qual | 0.10 CONSISTENT WITH | ng/mL | LAB | | | | NORMAL POPULATION0.11 | | | | | | to 0.60 CONSISTENT | | | | | | WITH INCREASED RISK FOR | | | | | | ADVERSE OUTCOMES> 0.60 | | | | | | CONSISTENT | | | | | | WITH WHO CRITERIA FOR | | | | | | ACUTE [place] Testing | | | | | | performed at [facility];[address] | | | | | [address];[place], [place] | | | | | | [address] | | | | + + + + + + + + | Specimen | + + | Blood specimen | | (specimen) | + + + +---------+ + + | Performing | Address | City/State/Zipcode | Phone Number | | Organization | | | | + +---------+ + + | EXTERNAL LAB | | | | + +---------+ + + PTT (10/31/2014 6:45 AM PST) + + + + + + | Component | Value | Ref Range | Performed | Pathologist | | | | | At | Signature | + + + + + + | aPTT, | 25Comment: Testing | 23 - 32 seconds | EXTERNAL | | | Patient | performed at [facility];[address] | | LAB | | | | [address];[place] | | | | | | [address] | | | | + + + + + + + + | Specimen | + + | Blood specimen | | (specimen) | + + + +---------+ + + | Performing | Address | City/State/Zipcode | Phone Number | | Organization | | | | + +---------+ + + | EXTERNAL LAB | | | | + +---------+ + + Sedimentation rate, automated (10/31/2014 6:45 AM PST) + + + + + + | Component | Value | Ref Range | Performed | Pathologist | | | | | At | Signature | + + + + + + | Sed Rate | 37 (H)Comment: Testing | 0 - 15 mm/Hr | EXTERNAL | | | | performed at [facility] | | LAB | | | | [address] [facility];[place], [place] | | | | | | [address] | | | | + + + + + + + + | Specimen | + + | Blood specimen | | (specimen) | + + + +---------+ + + | Performing | Address | City/State/Zipcode | Phone Number | | Organization | | | | + +---------+ + + | EXTERNAL LAB | | | | + +---------+ + + Protime INR (10/31/2014 6:45 AM PST) + + + + + + | Component | Value | Ref Range | Performed | Pathologist | | | | | At | Signature | + + + + + + | INR | 1.0Comment: REFERENCE | | EXTERNAL | | | | RANGE:0.9 - 1.2 | | LAB | | | | NON-ANTICOAGULATED2.0 | | | | | | - 3.0 ALL OTHER | | | | | | THERAPEUTIC | | | | | | INDICATIONS2.5 - 3.5 | | | | | | MECHANICAL HEART VALVES, | | | | | | RECURRENT OR SYSTEMIC | | | | | | EMBOLISMTesting | | | | | | performed at [facility];[address] | | | | | | [address];[place], [place] | | | | | | [address] | | | | + + + [...] + +---------+ + + External Lab: CBC (10/31/2014 6:45 AM PST) + + + + + + | Component | Value | Ref Range | Performed | Pathologist | | | | | At | Signature | + + + + + + | WBC | 8.1Comment: Testing | 3.8 - 11.0 K/uL | EXTERNAL | | | | performed at [facility];[address] | | LAB | | | [address];[place] | | | | | | [address] | | | | + + + + + + | Non- | 4.83Comment: Testing | 4.20 - 5.70 | EXTERNAL | | | Red Blood | performed at [facility];[address] | M/uL | LAB | | | Cells | [address];[place] | | | | | Counted | [id number] | | | | + + + + + + | Hemoglobin | 12.5 (L)Comment: Testing | 13.2 - 17.0 | EXTERNAL | | | | performed at [facility];888 | g/dL | LAB | | | | [address];[place] | | | | | | [address] | | | | + + + + + + | Hematocrit, | 38.1 (L)Comment: Testing | 39.0 - 50.0 % | EXTERNAL | | | POC | performed at [facility];888 | | LAB | | | | [address];[place] | | | | | | [address] | | | | + + + + + + | MCV | 78.9 (L)Comment: Testing | 80.0 - 100.0 fl | EXTERNAL | | | | performed at [facility];888 | | LAB | | | | [address];[place] | | | | | | [address] | | | | + + + + + + | MCH | 26.0 (L)Comment: Testing | 27.0 - 34.0 pg | EXTERNAL | | | | performed at [facility];888 | | LAB | | | | [address];[place] | | | | | | [address] | | | | + + + + + + | MCHC | 32.9Comment: Testing | 32.0 - 35.5 | EXTERNAL | | | | performed at [facility];888 | g/dL | LAB | | | | [address];[place] | | | | | | [address] | | | | + + + + + + | RDW-CV | 47.7Comment: Testing | 37 - 53 fl | EXTERNAL | | | | performed at [facility];888 | | LAB | | | | [address];[place] | | | | | | [address] | | | | + + + + + + | Platelet | 260Comment: Testing | 150 - 400 K/uL | EXTERNAL | | | Count | performed at [facility];888 | | LAB | | | Plasma | [address];[place] | | | | | | [address] | | | | + + + + + + | MPV | 8.2Comment: Testing | fl | EXTERNAL | | | | performed at [facility];[address] | | LAB | | | | [address];[place] | | | | | | [address] | | | | + + + + + + | Differentia | AUTOMATEDComment: | | EXTERNAL | | | l Type | Testing performed at | | LAB | | | | [facility];[address];[place] [address] | | | | + + + + + + | % Segmented | 41.3Comment: Testing | % | EXTERNAL | | | | performed at [facility];888 | | LAB | | | Neutrophils | [address];[place] | | | | | | [address] | | | | + + + + + + | % | 51.5Comment: Testing | % | EXTERNAL | | | Lymphocytes | performed at [facility];888 | | LAB | | | | [address];[place] | | | | | | [address] | | | | + + + + + + | % Monocytes | 5.5Comment: Testing | % | EXTERNAL | | | | performed at [facility];[address] | | LAB | | | | [address];[place] | | | | | | [address] | | | | + + + + + + | % | 1.4Comment: Testing | % | EXTERNAL | | | Eosinophils | performed at [facility];[address] | | LAB | | | | [address] | | | | | | [address] | | | | + + + + + + | % Basophils | 0.3Comment: Testing | % | EXTERNAL | | | | performed at [facility];[address] | | LAB | | | | [address];[place] | | | | | | [address] | | | | + + + + + + | Absolute | 3.4Comment: Testing | 1.9 - 7.4 K/uL | EXTERNAL | | | Segmented | performed at [facility];888 | | LAB | | | Neutrophils | [address];[place] | | | | | | [address] | | | | + + + + + + | Absolute | 4.2 (H)Comment: Testing | 1.0 - 3.9 K/uL | EXTERNAL | | | Lymphocytes | performed at [facility];888 | | LAB | | | | [address];[place] | | | | | | [address] | | | | + + + + + + | Absolute | 0.4Comment: Testing | 0 - 0.8 K/uL | EXTERNAL | | | Monocytes | performed at [facility];[address] | | LAB | | | | [address];[place] | | | | | | [address] | | | | + + + + + + | Absolute | 0.1Comment: Testing | 0 - 0.5 K/uL | EXTERNAL | | | Eosinophils | performed at [facility];888 | | LAB | | | | [address];[place] | | | | | | [address] | | | | + + + + + + | Absolute | 0.0Comment: Testing | 0 - 0.1 K/uL | EXTERNAL | | | Basophils | performed at [facility];888 | | LAB | | | | [address];[place], [place] | | | | | | [address] | | | | + + + + + + + + | Specimen | + + | Blood specimen | | (specimen) | + + + +---------+ + + | Performing | Address | City/State/Zipcode | Phone Number | | Organization | | | | + +---------+ + + | EXTERNAL LAB | | | | + +---------+ + + C-Reactive Protein (10/31/2014 6:45 AM PST) + + + + + + | Component | Value | Ref Range | Performed | Pathologist | | | | | At | Signature | + + + + + + | CRP | 0.7 (H)Comment: Testing | mg/dL | EXTERNAL | | | | performed at [facility];88 | | LAB | | | | [address] [facility];[place], [place] | | | | | | [address] | | | | + + + + + + + + | Specimen | + + | Blood specimen | | (specimen) | + + + +---------+ + + | Performing | Address | City/State/Zipcode | Phone Number | | Organization | | | | + +---------+ + + | EXTERNAL LAB | | | | + +---------+ + + Phosphorus (10/31/2014 6:45 AM PST) + + + + + + | Component | Value | Ref Range | Performed | Pathologist | | | | | At | Signature | + + + + + + | PHOSPHORUS | 4.0Comment: Testing | 2.3 - 4.8 mg/dL | EXTERNAL | | | | performed at [facility];888 | | LAB | | | | [address];[place] | | | | | | [address] | | | | + + + + + + + + | Specimen | + + | Blood specimen | | (specimen) | + + + +---------+ + + | Performing | Address | City/State/Zipcode | Phone Number | | Organization | | | | + +---------+ + + | EXTERNAL LAB | | | | + +---------+ + + B Type Natriuretic Peptide (10/31/2014 6:45 AM PST) + + + + + + | Component | Value | Ref Range | Performed | Pathologist | | | | | At | Signature | + + + + + + | BNP | 22.0Comment: Testing | 0 - 100 pg/mL | EXTERNAL | | | | performed at [facility];888 | | LAB | | | | [address];[place], [place] | | | | | | [address] | | | | + + + + + + + + | Specimen | + + | Blood specimen | | (specimen) | + + + +---------+ + + | Performing | Address | City/State/Zipcode | Phone Number | | Organization | | | | + +---------+ + + | EXTERNAL LAB | | | | + +---------+ + + Magnesium (10/31/2014 6:45 AM PST) + + + + + + | Component | Value | Ref Range | Performed | Pathologist | | | | | At | Signature | + + + + + + | Magnesium | 2.0Comment: Testing | 1.7 - 2.4 mg/dL | EXTERNAL | | | | performed at [facility] | | LAB | | | | [address];[place] | | | | | | [address] | | | | + + + [...] + +---------+ + + Comprehensive Metabolic Panel (10/31/2014 6:45 AM PST) + + + + + + | Component | Value | Ref Range | Performed | Pathologist | | | | | At | Signature | + + + + + + | Na | 138Comment: Testing | 135 - 143 | EXTERNAL | | | | performed at [facility];888 | mmol/L | LAB | | | | [address];[place] | | | | | | [address] | | | | + + + + + + | K | 3.8Comment: Testing | 3.5 - 4.9 | EXTERNAL | | | | performed at [facility];888 | mmol/L | LAB | | | | [address];[place] | | | | | | [address] | | | | + + + + + + | Cl | 104Comment: Testing | 99 - 109 mmol/L | EXTERNAL | | | | performed at [facility];[address] | | LAB | | | | [address];[place] | | | | | | [address] | | | | + + + + + + | CO2 | 28Comment: Testing | 23 - 32 mmol/L | EXTERNAL | | | | performed at [facility];[address] | | LAB | | | | [address];[place] | | | | | | [address] | | | | + + + + + + | Anion Gap | 10Comment: Testing | 5 - 20 mmol/L | EXTERNAL | | | | performed at [facility];[address] | | LAB | | | | [address];[place] | | | | | | [address] | | | | + + + + + + | Glucose, | 98Comment: Testing | 65 - 99 mg/dL | EXTERNAL | | | Fasting | performed at [facility];[address] | | LAB | | | | [address];[place] | | | | | | [address] | | | | + + + + + + | BUN | 20Comment: Testing | 8 - 25 mg/dL | EXTERNAL | | | | performed at [facility];[address] | | LAB | | | | [address];[place] | | | | | | [address] | | | | + + + + + + | Creatinine | 0.82Comment: Testing | 0.70 - 1.30 | EXTERNAL | | | | performed at [facility];888 | mg/dL | LAB | | | | [address];[place] | | | | | | [address] | | | | + + + + + + | BUN/Creatin | 24Comment: Testing | | EXTERNAL | | | ine Ratio | performed at [facility];[address] | | LAB | | | | [address];[place] | | | | | | [address] | | | | + + + + + + | Calcium | 8.5Comment: Testing | 8.5 - 10.2 | EXTERNAL | | | | performed at [facility];888 | mg/dL | LAB | | | | [address];[place] | | | | | | [address] | | | | + + + + + + | Protein, | 8.0Comment: Testing | 6.3 - 8.2 g/dL | EXTERNAL | | | Total | performed at [facility];[address] | | LAB | | | | [address];[place] | | | | | | [address] | | | | + + + + + + | Albumin | 3.3 (L)Comment: Testing | 3.6 - 5.0 g/dL | EXTERNAL | | | | performed at [facility];[address] | | LAB | | | | [address];[place] | | | | | | [address] | | | | + + + + + + | Globulin | 4.6Comment: Testing | 1.3 - 4.9 g/dL | EXTERNAL | | | | performed at [facility];[address] | | LAB | | | | [address];[place] | | | | | | [address] | | | | + + + + + + | A/G Ratio | 0.7 (L)Comment: Testing | 1.0 - 2.4 | EXTERNAL | | | | performed at [facility];[address] | | LAB | | | | [address];[place] | | | | | | [address] | | | | + + + + + + | Bilirubin | 0.3Comment: Testing | 0.1 - 1.5 mg/dL | EXTERNAL | | | Total | performed at [facility];[address] | | LAB | | | | [address];[place] | | | | | | [address] | | | | + + + + + + | ALP, | 89Comment: Testing | 35 - 115 U/L | EXTERNAL | | | External | performed at [facility];[address] | | LAB | | | | [address];[place] | | | | | | [address] | | | | + + + + + + | AST | 18Comment: Testing | 10 - 45 U/L | EXTERNAL | | | | performed at [facility];[address] | | LAB | | | | [address];[place] | | | | | | [address] | | | | + + + + + + | ALT | 19Comment: Testing | 10 - 65 U/L | EXTERNAL | | | | performed at [facility];[address] | | LAB | | | | [address];[place] | | | | | | [address] | | | | + + + [...] BY | | | | | | 1.210.Testing performed | | | | | | at [facility];[address];[place] [address] | | | | + + + [...] + | Diagnosis | + + | Right arm pain Pain in limb | + + | Thoracic outlet syndrome Brachial plexus lesions | + + documented in this encounter [...]
--- OUTSIDE RECORDS SUMMARY | ~2020-06-05 | XMS | Encounter Summary ---
Demographics + + + | Address | [address] | | | [place] [address] | + + + | Home Phone | | + + + | Preferred Language | Unknown | + + + | Marital Status | Single | + + + | Taoist Affiliation | Unknown | + + + | Race | Unknown | + + + | Ethnic Group | Unknown | + + + Author + + + | Author | [facility] | | | and [place] | + + + | Organization | [facility] | | | and [place] | + + + | Address | Unknown | + + + | Phone | Unavailable | + + + Support + + +---------+ + | Name | Relationship | Address | Phone | + + +---------+ + | Serge Muñoz | ECON | Unknown | | + + +---------+ + | Sharmaine Puentehina | ECON | Unknown | | + + +---------+ + Care Team Providers + +------+ + | Care Community Recreation Coordinator Name | Role | Phone | + +------+ + PCP | Unavailable | + +------+ + Encounter Details +--------+ + + + + | Date | Type | Department | Care Team | Description | +--------+ + + + + | 09/28/ | [facility] | [facility] | [place], | | | 2009 | Encounter | MED CTR EMERGENCY | Saurabh Palacios MD [address] | | | | | CENTER [address] | [address] [place] | | | | | [place] | [place] [address] | | | | | [address] | [phone] | | | | | [phone] | | | +--------+ + + + [...]
--- OUTSIDE RECORDS SUMMARY | ~2020-06-05 | XMS | Encounter Summary ---
Demographics + + + | Address | [address] | | | [place] [address] | + + + | Home Phone | | + + + | Preferred Language | Unknown | + + + | Marital Status | Single | + + + | Gnosticism Affiliation | Unknown | + + + | Race | Unknown | + + + | Ethnic Group | Unknown | + + + Author + + + | Author | [facility] | | | and [place] | + + + | Organization | [facility] | | | and [place] [...] Team Providers + +------+ + | Care Set Up Operator Name | Role | Phone | + +------+ + PCP | Unavailable | + +------+ + Encounter Details +--------+ + + + + | Date | Type | Department | Care Team | Description | +--------+ + + + + | 12/19/ | [facility] | [facility] | Bryson Brady, | | | 2011 | Encounter | MED CTR XRAY [address] | MD [address] | | | | | [place] | [place], [place] | | | | | [place] [address] | [address] | | | | | [phone] | | | +--------+ + + + [...] + + | US ABDOMEN LIMITED | | 12/19/2011 | | Results for this | | | | 1:16 PM | | procedure are in the | | | | PST | | results section. | + +--------+ + + + documented in this encounter Results US Abdomen Limited (12/19/2011 1:16 PM PST) + + | Specimen | + + | | + + + + + | Narrative | Performed At | + + + | [facility] Diagnostic [facility] Department | [facility] | | [address] [facility] | [facility] | | GALLBLADDER ULTRASOUND, | DIAG IMG | | 12/19/2011 CLINICAL HISTORY: RIGHT UPPER QUADRANT PAIN. | | | FINDINGS: The gallbladder is sonographically normal with no stone. | | | The liver is uniformly hyperechoi c consistent with steatosis. There | | | is intrahepatic biliary duct dilatation. The common hepatic duct m | | | easures 9 mm and the common bile duct 8 mm. The head of the pancreas | | | is poorly seen because of bowel gas. No obstructing mass or common | | | duct stone is identified. Images of the upper pole of the right ki | | | dney are unremarkable. IMPRESSION: 1. INTRA AND EXTRAHEPATIC | | | BILIARY DUCT DILATATION. 2. SUBOPTIMAL ASSESSMENT OF THE | | | PANCREATIC HEAD AND AMPULLARY REGIONS; CT OR MRCP IS SUGGESTED. | | | 3. HEPATOSTEATOSIS. Dictated Date/Time: 12/19/2011 16:02 | | | Transcribed Date/Time: 12/19/2011 16:06 Household Appliance Assembler: | | | <Electronically Signed by Pavan Shaver MD> 12/19/11 1809 | | + + + + + | Procedure Note | + + | Melquiades, Rad Conversion - 12/17/2013 4:43 PM [facility] | | Diagnostic Imaging Department [address] | | GALLBLADDER ULTRASOUND, 12/19/2011 CLINICAL HISTORY: | | RIGHT UPPER QUADRANT PAIN. FINDINGS: The gallbladder is sonographically normal with no | | stone. The liver is uniformly hyperechoic consistent with steatosis. There is | | intrahepatic biliary duct dilatation. The common hepatic duct measures 9 mm and the | | common bile duct 8 mm. The head of the pancreas is poorly seen because of bowel gas. No | | obstructing mass or common duct stone is identified. Images of the upper pole of the | | right kidney are unremarkable. IMPRESSION: 1. INTRA AND EXTRAHEPATIC BILIARY DUCT | | DILATATION. 2. SUBOPTIMAL ASSESSMENT OF THE PANCREATIC HEAD AND AMPULLARY REGIONS; CT OR | | MRCP IS SUGGESTED. 3. HEPATOSTEATOSIS. Dictated Date/Time: 12/19/2011 | | 16:02Transcribed Date/Time: 12/19/2011 16:06Transcriptionist: <Electronically | | Signed by Pavan Shaver MD> 12/19/111808 | |gas. No obstructing mass or common duct stone is identified. Images of the upper pole of th e right ki | |dney are unremarkable. | | | |IMPRESSION: | |1. INTRA AND EXTRAHEPATIC BILIARY DUCT DILATATION. | | | |2. SUBOPTIMAL ASSESSMENT OF THE PANCREATIC HEAD AND AMPULLARY REGIONS; CT OR MRCP IS SUGGES KRIS. | | | |3. HEPATOSTEATOSIS. | | | |Dictated Date/Time: 12/19/2011 16:02 | |Transcribed Date/Time: 12/19/2011 16:06 | |Household Appliance Assembler: | |<Electronically Signed by Pavan Shaver MD> 12/19/11 341 | + + + +---------+ + + | Performing | Address | City/State/Zipcode | Phone Number | | Organization | | | | + +---------+ + + | [place] | | | | | [facility] [place] [facility] | | | | + +---------+ + + documented in this encounter Visit Diagnoses Not on filedocumented in this encounter"
--- OUTSIDE RECORDS SUMMARY | ~2020-06-05 | XMS | Encounter Summary ---
Demographics + + + | Address | [address] | | | [place] [address] | + + + | Home Phone | | + + + | Preferred Language | Unknown | + + + | Marital Status | Single | + + + | Holiness Affiliation | Unknown | + + + | Race | Unknown | + + + | Ethnic Group | Unknown | + + + Author + + + | Author | [facility] | | | and [place] | + + + | Organization | [facility] | | | and [place] | + + + | Address | Unknown | + + + | Phone | Unavailable | + + + Support + + +---------+ + | Name | Relationship | Address | Phone | + + +---------+ + | Serge Muñoz | ECON | Unknown | | + + +---------+ + | Sharmaine Cindihina | ECON | Unknown | | + + +---------+ + Care Team Providers + +------+ + | Care Director Of Search Engine Marketing Name | Role | Phone | + +------+ + PCP | Unavailable | + +------+ + Encounter Details +--------+ + + + + | Date | Type | Department | Care Team | Description | +--------+ + + + + | 03/10/ | [facility] | [facility] | Ralph aCrrion | | | 2010 | Encounter | MED CTR EMERGENCY | MD [place] [address] | | | | | CENTER [address] | [place] | | | | | [place] | [place] [address] | | | | | [address] | [phone] | | | | | [phone] | | | +--------+ + + + [...] documented as of this encounter ED Notes Ralph Carrion MD - 03/10/2011 3:30 AM PDTDATE: 03/10/2011 TIME OF EXAM: 0335 CHIEF COMPLAINT: Rash on feet. HISTORY OF PRESENT ILLNESS: Mr. Anderson is a 45-year-old male, who presents to the emergenc y department for evaluation and treatment for a rash that he has on the bottoms of his feet . He said it is very itchy. Had this over the course of the last few weeks intermittently, but it is worse tonight than it has be en. Initially starts as small blisters and then he scratches them. He has not been febrile. He did not mercado ve any wea kness or numbness. Over the last several, weeks, he has never had this rash before. No cough, no dif ficulty br eathing. No chest pain. No swelling of the lower extremities. No weakness or numbness of the lower extr emities. N o other symptoms or complaints. PAST MEDICAL HISTORY: HIV positive. FAMILY HISTORY: Noncontributory. SOCIAL HISTORY: Smokes cigarettes. No alcohol or drug abuse. MEDICATIONS/ALLERGIES: SEE NURSES' NOTES FOR COMPLETE LIST OF MEDICATIONS AND ALLERGIES. REVIEW OF SYSTEMS: Noted in HPI. PHYSICAL EXAMINATION VITAL SIGNS: Blood pressure 139/104, heart rate 111, respiratory rate 20, temperature 97.4 , oxygen saturation 98% on room air. GENERAL: Nontoxic appearing. In no acute distress. HEENT: Normocephalic. Oropharynx moist. RESPIRATORY: No respiratory distress. SKIN: Intact without rashes or lesions except for the soles of the feet have eczematous ra sh bilater ally. NEUROLOGIC: The patient is alert, oriented, and appropriate. DIAGNOSIS: ECZEMA, FEET. PLAN: Patient given injection of Benadryl here. Prescription for betamethasone ointment. H e is to us e as directed. Follow up with slip cover estimator or hogshead inspector if not improving. Return here worsenin g or fever . He understood instructions and discharged in stable condition. DICTATED BY: Ralph Carrion MD Emergency Medicine JOB #: [id number] EXT JOB #:[id number] <Electronicall y Signed by Ralph Carrion MD> 03/16/11 3279 documented in this encounter Plan of Treatment Not on filedocumented as of this encounter Visit Diagnoses Not on filedocumented in this encounter"
--- OUTSIDE RECORDS SUMMARY | ~2020-06-05 | XMS | Encounter Summary ---
Demographics + + + | Address | [address] | | | [place] [address] | + + + | Home Phone | | + + + | Preferred Language | Unknown | + + + | Marital Status | Single | + + + | Christian Affiliation | Unknown | + + + | Race | Unknown | + + + | Ethnic Group | Unknown | + + + Author + + + | Author | [facility] | | | and [place] | + + + | Organization | [facility] | | | and [place] [...] Team Providers + +------+ + | Care Chyron Operator Name | Role | Phone | + +------+ + PCP | Unavailable | + +------+ + Encounter Details +--------+ + + + + | Date | Type | Department | Care Team | Description | +--------+ + + + + | 08/04/ | Hospital | [facility] | Aditi Ortiz | | | 2009 - | Encounter | MED CTR EMERGENCY | MD [place] Barnes | | | | | CENTER [address] | [facility], | | | 08/05/ | | [place] | [place] [address] | | | 2009 | | [address] | [phone] | | | | | [phone] | | | +--------+ + + + [...]
--- OUTSIDE RECORDS SUMMARY | ~2020-06-05 | XMS | Encounter Summary ---
Demographics + + + | Address | [address] | | | [place] [address] | + + + | Home Phone | | + + + | Preferred Language | Unknown | + + + | Marital Status | Single | + + + | Roman Catholic Affiliation | Unknown | + + + | Race | Unknown | + + + | Ethnic Group | Unknown | + + + Author + + + | Author | [facility] | | | and [place] | + + + | Organization | [facility] | | | and [place] [...] Team Providers + +------+ + | Care Rn Urology Name | Role | Phone | + +------+ + | Jerome Young MD | PCP | | + +------+ + Encounter Details +--------+ + + + + | Date | Type | Department | Care Team | Description | +--------+ + + + + | 05/22/ | Hospital | [facility] | [place], | Acute pancreatitis, | | 2015 - | Encounter | [facility] [address] | unspecified | | | | [address] | [address] | pancreatitis type; | | 05/27/ | | [place], [place] | [place] [address] | HIV (human | | 2015 | | [address] | [phone] | immunodeficiency | | | | [phone] | | virus infection) | | | | | | ([facility]); Noncompliance | | | | | | with medication | | | | | | regimen | +--------+ + + + + Social [...] documented as of this encounter Discharge Summaries Rasheed Driscoll MD - 05/27/2015 11:26 AM PDTFormatting of this note might be different from th e original. Discharge Summaries by Rasheed Driscoll MD at 05/27/15 1126 Author: Rasheed Driscoll MD Service: (none) Author Type: Physician Filed: 05/27/15 1129 Date of Service: 05/27/151125 Status: Signed Social Service Manager: Rasheed Driscoll MD (Physician) [facility] Service: Hospitalist Physician Discharge Summary Patient ID: Slava Anderson [id number] y.o. 1965 Admit date: 05/22/2015 Discharge date and time: 05/27/2015 Admitting Physician: Jace Keller MD Discharge Physician: Rasheed Driscoll MD Consultants: Treatment Team: Consulting Physician: Jin Arango MD Admitting Provider: Jace Keller MD Discharge Diagnoses: Principal Problem: Acute pancreatitis Active Problems: HIV (human immunodeficiency virus infection) (HCC) Obesity, unspecified Current smoker Hyperlipidemia Chest pain Abnormal CT of liver The first problem in the assessment and plan below is a primary discharge diagnosis unless specifically stated otherwise. HPI and Hospital Course: * 49-year-old male with past medical history of HIV who presented with abdominal pain. Noncom pliant with medications found to have acute pancreatitis and abnormal LFTs. He had an MRI ab [facility] that showed dilated CBD and pancreatic duct. GI was consulted and patient had an ERCP with Spincetrotomy and patient improved quite well after that. Today stable for discharge. L ipase is trending down. Normal given LFTs are improving. We will give patient a prescription for hydrocodone and clonazepam as he does not have from before. He is homeless and will be going to homeless detention so advise patient to be carefu l about his medications. Also, had discussed with Dr. Dukes from [place], as patient will be following up with him as a ne w patient and recommend patient is to hold off an HIV medications for now and follow-up as a n outpatient. From there on. CD4 count and viral load was sent. Patient was seen by field nurse case managerdairy frozen manager discharge diagnosis: Acute pancreatitis Disposition: *Home Follow up: Akin Matthews NP [address] [facility] [address] Kojo Dukes MD [address] 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 Personal communication requested for any clarification. Secondary Discharge Diagnoses AND Other Medical History: Past Medical History Diagnosis Date HIV (human immunodeficiency virus infection) (HCC) Muscle spasms of neck Hyperlipidemia Cholelithiasis COPD (chronic obstructive pulmonary disease) ([facility]) Chronic mastoiditis Multiple joint pain 05/14/2013 Other chronic pain Neurosyphilis in male Blurred vision, bilateral Past Surgical History Procedure Laterality Date Tonsillectomy Fistula repair Tympanoplasty Ercp N/A 05/24/2015 Procedure: ENDOSCOPIC RETROGRADE CHOLANGIOPANCREATOGRAPHY; Surgeon: Jin Arango MD; Lo cation: [facility]; Service: Gastroenterology; Laterality: N/A; Discharged Condition: Stable for D/c as dictated above. Significant Diagnostic Studies: X-ray Chest 2 View Frontal & Lateral 05/23/2015 This is a non-reportable procedure without a radiologist report and is used fo r image storage only Ct Abdomen Pelvis With Iv Contrast 05/23/2015 This is a non-reportable procedure without a radiologist report and is used fo r image storage only X-ray Ercp 05/25/2015 SLAVA ANDERSON XR ERCP HISTORY: 49 years. Male. Acute pancreatitis. TECHNIQUE: 7 y fluoroscopic images of the right upper quadrant of the abdomen. 6.9 minutes of fluorosc opy time was utilized. FINDINGS: Contrast opacification of the intrauterine texture hepatic bile duct. No evidence for stricture or intraluminal filling defect. 05/25/2015 1. No stricture or intraluminal filling defect within the common bile duct. E lectronically signed by Rafal Crow DO on 05/25/2015 12:31 AM Us Abdomen, Gallbladder 05/23/2015 EXAM: ABDOMEN ULTRASOUND LIMITED, RUQ EXAM DATE: 05/23/2015 12:28 AM. CLINICAL HISTORY: Abdominal pain. COMPARISON: 08/19/2013. TECHNIQUE: Real-time scanning was perfo rmed with static images obtained. FINDINGS: Liver: Liver slightly large otherwise appears unremarkable. Liver is 18.6 cm longitudinally. Main portal vein flow: Hepatopetal. Gallbla dder: Normal. No stones, wall thickening, or sonographic Card's sign. Biliary System: CB D measures 7.1 mm. No intrahepatic or extrahepatic ductal dilatation. Other: Pancreas not well seen because of gas. No free abdominal fluid. 05/23/2015 1. Liver is slightly enlarged and shows no focal nodules. Appropriate portal v enous flow. Normal gallbladder. No stones. RADIA Electronically signed by Kaiser Perez MD on May 23 2015 1:03AM Referring Provider Line: [phone] ID: [id number] Mri Abdomen Wo Contrast Mrcp 05/23/2015 SLAVA ANDERSON MRI ABDOMEN WO CONTRAST MRCP 05/23/2015 11:33 AM HISTORY: 49 year s. Male. Acute pancreatitis. Assess for common bile duct stone. TECHNIQUE: Imaging was p erformed on a 1.5 Radha MRI system. Multiplanar sequences were acquired according to a [facility] protocol without contrast. COMPARISON: 08/19/2013 FINDINGS: The visualized portions of the heart and lung bases are normal. The distal esophagus is normal. The live r is normal in size, position, contour and signal intensity. No solid or cystic masses are noted. The portal vein is normal. The hepatic veins are normal. The gallbladder is normal in size. No stones, sludge or wall thickening is noted. M.R.C.P. Intrahepatic bilary duct s: Moderately dilated. Common bile duct: Mildly enlarged measuring up to 9.8 mm but essentia lly unchanged from August 2013. No intraluminal filling defect is seen to suggest a common duct stone. There is no stricture or a choledochocele seen. Cystic duct: Normal. Pancreati c duct: Appears mildly dilated in the head of the pancreas to a diameter 5.3 mm. At the desire ction of the pancreatic neck and body duct shows narrowing suggesting stricture. The calibe r of the pancreatic duct is otherwise relatively normal. The spleen is normal in size and s ignal intensity. No solid or cystic masses are noted. The pancreas is normal in size and s ignal intensity. No solid or cystic masses are noted. The adrenal glands are normal in siz e bilaterally. There is no evidence of an adrenal adenoma or hyperplasia. The kidneys are symmetric in size bilaterally and show no evidence of a solid mass. No hydronephrosis is no leobardo. A few tiny simple renal cysts are noted. The aorta and vena cava are normal in calibe r throughout their visualized course. No free fluid is present. No adenopathy is seen in t he abdomen. The study is not optimized for evaluation of bowel. No obvious mass or wall th ickening is demonstrated in the visualized portions of the stomach, small bowel and large viki wel. The muscles are symmetric. No focal atrophy or soft tissue mass is seen. No hernias are identified. The osseous structures have normal bone marrow signal intensity. 05/23/2015 1. Moderately dilated hepatic ductal system and mildly dilated common bile matilda t without evidence of a common bile duct stone, stricture or extrinsic compression. Finding s may be due to dysfunction of the sphincter of Ovi 2. Pancreatic duct is mildly dilated t o a diameter of 5.3 mm in the pancreatic head and shows questionable stricturing at the junc tion of the pancreatic neck and body. No pancreatic mass is identified. The anatomy does n ot suggest pancreas divisum. End Ercp Imaging 05/24/2015 This is a non-reportable procedure without a radiologist report and is used fo r image storage only. Please review the GI encounter notes for details on the procedure. Discharge Vitals: Filed Vitals: 05/26/15 2357 05/27/15 0338 05/27/15 0420 05/27/15 0810 BP: 125/68 140/66 112/85 Pulse: 91 107 94 90 Temp: 98.8 F (37.1 C) 99.3 F (37.4 C) 99 F (37.2 C) 99.6 F (37.6 C) TempSrc: Oral Oral Oral Oral Resp: 24 20 20 Height: Weight: SpO2: 96% 97% 94% Discharge Exam: General: Well nourished. Psych: Alert and oriented x 3. Calm, cooperative. Cardiovascular: Regular rate and rhythm, no murmurs, no thrills. Normal PMI. Respiratory: Clear to auscultation, no wheezing or crackles, breathing non labored. Gastrointestinal: Soft, non-tender, non-distended, positive bowel sounds. No HSM. Musculoskeletal: No edema in bilateral lower extremities. No joint swelling. Skin: Warm and dry, no rashes. Neck: No JVD, Trachea midline. Neurological: Non focal. Motor grossly intact. LABS: CBC: Lab Results Component Value Date WBC 5.49 05/27/2015 RBC 4.59 05/27/2015 HGB 13.0* 05/27/2015 HCT 39.2 05/27/2015 MCV 85.4 05/27/2015 MCH 28.2 05/27/2015 MCHC 33.1 05/27/2015 RDW 42.4 05/27/2015 PLT 170 05/27/2015 MPV 9.2 05/27/2015 DIFFTYPE AUTOMATED 05/27/2015 CMP: Lab Results Component Value Date NA 131* 05/27/2015 K 3.4* 05/27/2015 CL 101 05/27/2015 CO2 26 05/27/2015 ANIONGAP 7 05/27/2015 GLUF 118* 05/27/2015 BUN 7* 05/27/2015 CREATININE 0.65* 05/27/2015 BCR 11 05/27/2015 CA 8.3* 05/27/2015 PROT 6.9 05/27/2015 ALB 3.4* 05/27/2015 GLOB 3.5 05/27/2015 BILITOT 1.0 05/27/2015 ALP 203* 05/27/2015 AST 74* 05/27/2015 ALT 135* 05/27/2015 EGFR >60 05/27/2015 Albumin: Lab Results Component Value Date ALB 3.4* 05/27/2015 Magnesium: Lab Results Component Value Date MG 1.9 05/27/2015 Phosphorus: Lab Results Component Value Date PHOS 3.7 05/27/2015 PT/INR: Lab Results Component Value Date INR 1.0 05/23/2015 Troponin: Lab Results Component Value Date TROPONINI <0.020 05/23/2015 Last 3 Troponin: Lab Results Component Value Date TROPONINI <0.020 05/23/2015 TROPONINI <0.020 05/23/2015 TROPONINI <0.020 05/23/2015 TSH: Lab Results Component Value Date TSH 1.29 06/28/2014 TSHREFLEX 1.68 05/14/2013 Patient Instructions: Medication List START taking these medications carbamide peroxide 6.5 % otic solution QTY: 15 mL Refills: 0 Commonly known as: DEBROX Place 10 drops into the left ear 2 (two) times daily. ciprofloxacin 0.3 % ophthalmic ointment QTY: 3.5 g Refills: 0 Commonly known as: CILOXAN Place into both eyes 2 (two) times daily. clonazePAM 1 MG tablet QTY: 20 tablet Refills: 0 Commonly known as: KlonoPIN Take 1 tablet by mouth every 6 (six) hours as needed. CHANGE how you take these medications HYDROcodone-acetaminophen 5-325 MG per tablet QTY: 30 tablet Refills: 0 Commonly known as: NORCO Take 1-2 tablets by mouth every 6 (six) hours as needed for Pain. What changed: how much to take VENTOLIN HFA 108 (90 BASE) MCG/ACT inhaler QTY: 18 g Refills: 0 Generic drug: albuterol inhale 2 puffs by mouth INTO THE LUNGS every 4 hours if needed for wheezing or shortness of breath What changed: Another medication with the same name was removed. Continue taking this medi cation, and follow the directions you see here. CONTINUE taking these medications fluticasone 220 MCG/ACT inhaler Refills: 0 Commonly known as: FLOVENT HFA naproxen 500 MG tablet QTY: 14 tablet Refills: 0 Commonly known as: NAPROSYN Take 1 tablet by mouth 2 (two) times daily. For pain STOP taking these medications amoxicillin-clavulanate 875-125 MG per tablet Commonly known as: AUGMENTIN cyclobenzaprine 10 MG tablet Commonly known as: FLEXERIL emtricitabine-tenofovir 200-300 MG per tablet Commonly known as: TRUVADA etodolac 500 MG 24 hr tablet Commonly known as: LODINE XL ritonavir 100 MG capsule Commonly known as: NORVIR Where to Get Your Medications These are the prescriptions that you need to parts picker. You may get the following medications from any pharmacy - carbamide peroxide 6.5 % otic solution - ciprofloxacin 0.3 % ophthalmic ointment - clonazePAM 1 MG tablet - HYDROcodone-acetaminophen 5-325 MG per tablet Activity: activity as tolerated Diet: Cardiac Diet Discharge took more than 35 minutes, to include final examination, discussion of admission, and preparation of prescriptions, instructions for ongoing care, follow up and dictation of summary. There are no Patient Instructions on file for this visit. Follow-up with PMD and other physicians as directed. Signed: Rasheed Driscoll 05/27/2015 11:26 AM documented in this encou nter Medications at Time of Discharge + + [...] Progress Notes Conversion Transaction, Provider Unknown - 05/27/2015 2:52 PM PDTFormatting of this note m ight be different from the original. Progress Notes by Diamond Galvin RN at 05/27/15 2869 Author: Diamond Galvin RN Service: (none) Author Type: Registered Nurse Filed: 05/27/15 4992 Date of Service: 05/27/151451 Status: Signed Social Service Manager: Diamond Galvin RN (Registered Nurse) At 1300 a [employer] taxi arrived to transport patient due to lack of transportation however the patient had a friend arrive who stated she will transport patient. Discharge teaching d one. Instructions included homeless detention and housing authority phone numbers as well as p ancreatitis and all new medication information. Paperwork, pants/socks, and prescriptions gi evelia. Patient claims to have no further questions or concerns. Patient stable and pain is u nder control. All personal belongings given to patient. Patient escorted by staff to [facility] with friend. Diamond Galvin RN 05/27/2015 2:52 PM onver brett Transaction, Provider Unknown - 05/26/2015 3:00 PM PDT Case Management by Katelyn Aguilar RN at 05/26/15 1500 Author: Katelyn Aguilar RN Service: (none) Author Type: Registered Nurse Filed: 05/26/15 1510 Date of Service: 05/26/15 1500 Status: Signed Social Service Manager: Katelyn Aguilar RN (Registered Nurse) CM spoke with patient at great length concerning his needs. CM left message with his CM Ludy ie Sow [phone] ([phone](w) to discuss his case. Concerned about not being able to obtai n his ID with out an address. Gave patient the address of the detention [address] [place]. Discussed the need to reapply for his housing voucher. Encouraged patient to return to [facility] ([phone]) and ask for an advocate to assist with di rection to obtain coverage for his medications until open enrollment for Medicare part D. Nu mbnilesh given for housing advocate Trevor [phone]. Rasheed Quesada MD - 05/26/2015 10:27 AM PDTFormatting of this note might be different from the origi nal. Progress Notes by Rasheed Driscoll MD at 05/26/15 1027 Author: Rasheed Driscoll MD Service: (none) Author Type: Physician Filed: 05/26/15 1029 Date of Service: 05/26/15 1027 Status: Signed Social Service Manager: Rasheed Driscoll MD (Physician) [facility] Service: Hospitalist Progress Note Hospital Day: LOS: 4 days Consultants: Treatment Team: Consulting Physician: Jin Arango MD Admitting Provider: Jace Keller MD The first problem in assessment is the principal problem. ASSESSMENT/ PLAN 1. Acute pancreatitis, most likely due to stricture: MR I abdominal reviewed. Appreciate he lp from GI. Status post ERCP yesterday with spincterotomy. , clinically improving, but LFTs are somewhat worse along with lipase . Sodium. Monitor for 1 more day. If overall stable and discharge plan tomorrow . 2. Transaminitis. Slightly worse today. Plan as above. Status post ERCP 3. HIV: Discuss with ID, Dr. Dukes . Recommended to keep off HIV meds for now and follow-up in clinic. CD4 count viral load and genotype has been sent . CD4 count 158 Pt might need Pr ophylaxis but will leave it up to ID physician. Due to his overall compliance issues. 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 Personal communication requested for any clarification. SUBJECTIVE Events Overnight: *He reports that pain is somewhat better. No nausea, vomiting, was able to tolerate full liquid diet okay. After IV pain medication has been on for 2 hours, has bee n started on orals today OBJECTIVE General: Well nourished. Psych: Alert and oriented x 3. Calm, cooperative. Cardiovascular: Regular rate and rhythm, no murmurs, no thrills. Normal PMI. Respiratory: Clear to auscultation, no wheezing or crackles, breathing non labored. Gastrointestinal: Soft, minimal epigastric tenderness , but has some right upper quadrant t enderness. Also today, non-distended, positive bowel sounds. No HSM. Musculoskeletal: No edema in bilateral lower extremities. No joint swelling. Neck: No JVD, Trachea midline. Neurological: Non focal. Motor grossly intact. PROBLEM LIST Principal Problem: Acute pancreatitis Active Problems: HIV (human immunodeficiency virus infection) ([facility]) Obesity, unspecified Current smoker Hyperlipidemia Chest pain Abnormal CT of liver [facility] Past Medical History Diagnosis Date HIV (human immunodeficiency virus infection) ([facility]) Muscle spasms of neck Hyperlipidemia Cholelithiasis COPD (chronic obstructive pulmonary disease) ([facility]) Chronic mastoiditis Multiple joint pain 05/14/2013 Other chronic pain Neurosyphilis in male Blurred vision, bilateral HOME MEDICATIONS Prior to Admission medications Medication Sig Start Date End Date Taking? Authorizing Provider albuterol (PROVENTIL) (2.5 MG/3ML) 0.083% nebulizer solution inhale contents of 1 vial in n ebulizer every 4 hours if needed for shortness of breath 09/17/13 Yes GAYLA Cary P amoxicillin-clavulanate (AUGMENTIN) 875-125 MG per tablet Take 1 tablet by mouth 2 (two) ti mes daily. 05/12/15 05/26/15 Yes Rickey Saucedo, etodolac (LODINE XL) 500 MG 24 hr tablet Take 1 tablet by mouth daily. 07/17/14 07/17/15 Yes Be njamin D Gold, DO fluticasone (FLOVENT HFA) 220 MCG/ACT inhaler Inhale 1 puff into the lungs 2 (two) times da laverne. Yes Historical Provider naproxen (NAPROSYN) 500 MG tablet Take 1 tablet by mouth 2 (two) times daily. For pain 05/11/16 Yes Rickey Saucedo, DO ritonavir (NORVIR) 100 MG capsule Take 100 mg by mouth 2 (two) times daily. Yes Historica l Provider VENTOLIN HFA 108 (90 BASE) MCG/ACT inhaler inhale 2 puffs by mouth INTO THE LUNGS every 4 h ours if needed for wheezing or shortness of breath 12/15/14 Yes WANDA Cary emtricitabine-tenofovir (TRUVADA) 200-300 MG per tablet Take 1 tablet by mouth daily. 4 05/12/15 Zita Enriquez MD HYDROcodone-acetaminophen (NORCO) 5-325 MG per tablet Take 1 tablet by mouth every 6 (six) hours as needed for Pain. 07/01/14 07/11/14 WANDA Jenkins DATA Vital Signs: BP 130/73 | Pulse 81 | Temp(Src) 98.2 F (36.8 C) (Oral) | Resp 18 | Ht 1.727 m (5' 8") | Wt 88.2 kg (194 lb 7.1 oz) | BMI 29.57 kg/m2 | SpO2 96% Filed Vitals: 05/25/15 2107 05/26/15 0010 05/26/15 0344 05/26/15 0757 BP: 119/72 98/54 120/76 130/73 Pulse: 93 92 94 81 Temp: 98.5 F (36.9 C) 98.2 F (36.8 C) 98 F (36.7 C) 98.2 F (36.8 C) TempSrc: Oral Oral Oral Oral Resp: 18 18 18 18 Height: Weight: 88.2 kg (194 lb 7.1 oz) SpO2: 96% 92% 96% 96% No intake or output data in the 24 hours ending 05/26/15 1027 CBC: Lab Results Component Value Date WBC 3.41* 05/26/2015 RBC 4.54 05/26/2015 HGB 13.0* 05/26/2015 HCT 38.5* 05/26/2015 MCV 84.8 05/26/2015 MCH 28.5 05/26/2015 MCHC 33.6 05/26/2015 RDW 42.0 05/26/2015 PLT 148* 05/26/2015 MPV 9.4 05/26/2015 DIFFTYPE AUTOMATED 05/26/2015 CMP: Lab Results Component Value Date NA 129* 05/26/2015 K 3.5 05/26/2015 CL 99 05/26/2015 CO2 25 05/26/2015 ANIONGAP 9 05/26/2015 GLUF 146* 05/26/2015 BUN 12 05/26/2015 CREATININE 0.70 05/26/2015 BCR 17 05/26/2015 CA 8.7 05/26/2015 PROT 6.6 05/26/2015 ALB 3.4* 05/26/2015 GLOB 3.2 05/26/2015 BILITOT 3.4* 05/26/2015 ALP 204* 05/26/2015 AST 156* 05/26/2015 ALT 180* 05/26/2015 EGFR >60 05/26/2015 Magnesium: Lab Results Component Value Date MG 1.6* 05/26/2015 Phosphorus: Lab Results Component Value Date PHOS 3.0 05/26/2015 PT/INR: Lab Results Component Value Date INR 1.0 05/23/2015 PTT: Lab Results Component Value Date APTT 25 05/23/2015 [APTT Imaging @IMAGES@ Scheduled Medications carbamide peroxide 10 drop Left Ear BID ciprofloxacin Both Eyes BID famotidine 20 mg Oral BID Or famotidine 20 mg Intravenous BID fluticasone 1 puff Inhalation BID heparin (porcine) 5000 unit/0.5mL 5,000 Units Subcutaneous Q8H magnesium sulfate 3 g Intravenous Once nicotine 1 patch Transdermal Daily Continuous Infusions lactated ringers 150 mL/hr at 05/24/15 1747 PRN Medications albuterol, diphenhydrAMINE, HYDROcodone-acetaminophen, HYDROmorphone OR HYDROmorphone, magnesium sulfate OR magnesium sulfate OR magnesium sulfate, ondansetron OR onda nsetron, polyethylene glycol, potassium chloride OR potassium chloride OR potassium chloride, zolpidem Rasheed Driscoll MD 05/26/201510:27 AM onversion Transaction, Provider Unknown - 05/26/2015 7:37 AM PDTFormatting of this note might be different from th e original. Nurse Progress Note by Clare Martinez RN at 05/26/15736 Author: Clare Martinez RN Service: (none) Author Type: Registered Nurse Filed: 05/26/1546 Date of Service: 05/26/15736 Status: Signed Social Service Manager: Clare Martinez RN (Registered Nurse) Bedside report received from KAREEM Garcia. Pt currently c/o throat irritation, chest/abdominal pain not agrevated by oral intake, currently drinking a milk shake, denies nausea. Asked ab out eye drops for conjunctivitis and also about meds for ear infection. Dr. Driscoll notified an d orders received. Pt requests case management, RN will arrange this. Rasheed Quesada MD - 05/25/2015 10:40 AM PDTFormatting of this note might be different from the origi nal. Progress Notes by Rasheed Driscoll MD at 05/25/15 1040 Author: Rasheed Driscoll MD Service: (none) Author Type: Physician Filed: 05/25/15 1043 Date of Service: 05/25/151039 Status: Signed Social Service Manager: Rasheed Driscoll MD (Physician) [facility] Service: Hospitalist Progress Note Hospital Day: LOS: 3 days Consultants: Treatment Team: Consulting Physician: Jin Arango MD Admitting Provider: Jace Keller MD The first problem in assessment is the principal problem. ASSESSMENT/ PLAN 1. Acute pancreatitis, unclear etiology: MR I abdominal reviewed. Appreciate help from GI. Status post ERCP yesterday with spincterotomy. Today some improvement. So will advance diet to full liquid and monitor for 1 more day. If overall improvement. Possible discharge tomorr ow. 2. Transaminitis. He was slowly improving. Status post ERCP 3. HIV: Discuss with ID, Dr. Dukes . Recommended to keep off HIV meds for now and follow-up in clinic. CD4 count viral load and genotype has been sent . CD4 count 158 patient relief. P rophylaxis but will leave it up to ID physician. Due to his overall compliance issues. 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 Personal communication requested for any clarification. SUBJECTIVE Events Overnight: *Had ERCP yesterday and had worsening pain overnight but this morning so mewhat better. Has tolerated clear liquid diet okay this time. No nausea, vomiting OBJECTIVE General: Well nourished. Psych: Alert and oriented x 3. Calm, cooperative. Cardiovascular: Regular rate and rhythm, no murmurs, no thrills. Normal PMI. Respiratory: Clear to auscultation, no wheezing or crackles, breathing non labored. Gastrointestinal: Soft, minimal epigastric tenderness , but has some right upper quadrant t enderness. Also today, non-distended, positive bowel sounds. No HSM. Musculoskeletal: No edema in bilateral lower extremities. No joint swelling. Neck: No JVD, Trachea midline. Neurological: Non focal. Motor grossly intact. PROBLEM LIST Principal Problem: Acute pancreatitis Active Problems: HIV (human immunodeficiency virus infection) ([facility]) Obesity, unspecified Current smoker Hyperlipidemia Chest pain Abnormal CT of liver [facility] Past Medical History Diagnosis Date HIV (human immunodeficiency virus infection) ([facility]) Muscle spasms of neck Hyperlipidemia Cholelithiasis COPD (chronic obstructive pulmonary disease) ([facility]) Chronic mastoiditis Multiple joint pain 05/14/2013 Other chronic pain Neurosyphilis in male Blurred vision, bilateral HOME MEDICATIONS Prior to Admission medications Medication Sig Start Date End Date Taking? Authorizing Provider albuterol (PROVENTIL) (2.5 MG/3ML) 0.083% nebulizer solution inhale contents of 1 vial in n ebulizer every 4 hours if needed for shortness of breath 09/17/13 Yes GAYLA Cary P amoxicillin-clavulanate (AUGMENTIN) 875-125 MG per tablet Take 1 tablet by mouth 2 (two) ti mes daily. 05/12/15 05/26/15 Yes Rickey Saucedo DO etodolac (LODINE XL) 500 MG 24 hr tablet Take 1 tablet by mouth daily. 07/17/14 07/17/15 Yes Be njamin D Gold, DO fluticasone (FLOVENT HFA) 220 MCG/ACT inhaler Inhale 1 puff into the lungs 2 (two) times da laverne. Yes Historical Provider naproxen (NAPROSYN) 500 MG tablet Take 1 tablet by mouth 2 (two) times daily. For pain 05/11/16 Yes Rickey Saucedo, ritonavir (NORVIR) 100 MG capsule Take 100 mg by mouth 2 (two) times daily. Yes Historica l Provider VENTOLIN HFA 108 (90 BASE) MCG/ACT inhaler inhale 2 puffs by mouth INTO THE LUNGS every 4 h ours if needed for wheezing or shortness of breath 12/15/14 Yes WANDA Cary emtricitabine-tenofovir (TRUVADA) 200-300 MG per tablet Take 1 tablet by mouth daily. 4 05/12/15 Zita Enriquez MD HYDROcodone-acetaminophen (NORCO) 5-325 MG per tablet Take 1 tablet by mouth every 6 (six) hours as needed for Pain. 07/01/14 07/11/14 WANDA Jenkins DATA Vital Signs: BP 144/75 | Pulse 82 | Temp(Src) 98.2 F (36.8 C) (Oral) | Resp 18 | Ht 1.727 m (5' 8") | Wt 90.719 kg (200 lb) | BMI 30.42 kg/m2 | SpO2 96% Filed Vitals: 05/24/15 2205 05/24/15 2233 05/25/15 0441 05/25/15 0712 BP: 156/92 143/94 144/75 Pulse: 78 66 80 82 Temp: 97.7 F (36.5 C) 98 F (36.7 C) 98.2 F (36.8 C) TempSrc: Oral Oral Oral Resp: Height: Weight: SpO2: 92% 92% 94% 96% Intake/Output Summary (Last 24 hours) at 05/25/15 1040 Last data filed at 05/25/15 0441 Gross per 24 hour Intake 2232 ml Output 2050 ml Net 182 ml CBC: Lab Results Component Value Date WBC 4.02 05/25/2015 RBC 4.77 05/25/2015 HGB 13.4 05/25/2015 HCT 40.3 05/25/2015 MCV 84.4 05/25/2015 MCH 28.1 05/25/2015 MCHC 33.3 05/25/2015 RDW 39.8 05/25/2015 PLT 147* 05/25/2015 MPV 9.1 05/25/2015 DIFFTYPE AUTOMATED 05/25/2015 CMP: Lab Results Component Value Date NA 131* 05/25/2015 K 4.2 05/25/2015 CL 99 05/25/2015 CO2 26 05/25/2015 ANIONGAP 10 05/25/2015 GLUF 127* 05/25/2015 BUN 9 05/25/2015 CREATININE 0.73 05/25/2015 BCR 12 05/25/2015 CA 8.7 05/25/2015 PROT 7.0 05/25/2015 ALB 3.5* 05/25/2015 GLOB 3.5 05/25/2015 BILITOT 1.1 05/25/2015 ALP 197* 05/25/2015 AST 112* 05/25/2015 ALT 177* 05/25/2015 EGFR >60 05/25/2015 Magnesium: Lab Results Component Value Date MG 1.5* 05/25/2015 Phosphorus: Lab Results Component Value Date PHOS 4.0 05/25/2015 PT/INR: Lab Results Component Value Date INR 1.0 05/23/2015 PTT: Lab Results Component Value Date APTT 25 05/23/2015 [APTT Imaging @IMAGES@ Scheduled Medications famotidine 20 mg Oral BID Or famotidine 20 mg Intravenous BID fluticasone 1 puff Inhalation BID heparin (porcine) 5000 unit/0.5mL 5,000 Units Subcutaneous Q8H Continuous Infusions lactated ringers 150 mL/hr at 05/24/15 1747 PRN Medications albuterol, diphenhydrAMINE, HYDROmorphone OR HYDROmorphone, magnesium sulfate OR ma gnesium sulfate OR magnesium sulfate, ondansetron OR ondansetron, polyethylene glyco l, potassium chloride OR potassium chloride OR potassium chloride, zolpidem Rasheed Driscoll MD 05/25/201510:40 AM onversion Transaction, Provider Unknown - 05/25/2015 4:44 AM PDTFormatting of this note might be different from e original. Nurse Progress Note by Wallace Joe RN at 05/25/15443 Author: Wallace Joe RN Service: (none) Author Type: Registered Nurse Filed: 05/25/15447 Date of Service: 05/25/15443 Status: Signed Social Service Manager: Wallace Joe RN (Registered Nurse) Pt has been uncompliant during shift; refused medications, refused vital sign assessments, did not follow diet order, and disconnected IV tubing causing blood to pool on floor. Pt has been rude and verbally disrespectful to staff. onver brett Transaction, Provider Unknown - 05/24/2015 8:32 PM PDT Nurse Progress Note by Wallace Joe RN at 05/24/152031 Author: Wallace Joe RN Service: (none) Author Type: Registered Nurse Filed: 05/24/152031 Date of Service: 05/24/152031 Status: Signed Social Service Manager: Wallace Joe RN (Registered Nurse) Report given to OR nurse. Pt off floor to procedure. onver brett Transaction, Provider Unknown - 05/24/2015 12:08 PM PDT Case Management by LANDY Jacob LICSW at 05/24/151207 Author: LANDY Jacob LICSW Service: (none) Author Type: Asbestos Remover Filed: 05/24/15 1214 Date of Service: 05/24/151207 Status: Signed Social Service Manager: LANDY Jacob, CLINICAL ENGINEER (Asbestos Remover) 05/24/15 1200 Discharge Planning Evaluation Admitting Diagnosis (Acute pancreatitis, HIV, ) Readmission Yes-within 14 days Reason for readmission (conguntivitis) Last discharge disposition Other (comment) Needs met at last discharge Yes Picked up discharge Rx medications Yes Started prescribed DC meds Yes Followed up with primary or specialty provider No Understood discharge instructions Yes Concerns for meeting needs Yes Living Arrangements Other (Comment) (homeless) Type of Residence Homeless Independent with ADL's Yes Independent with Mobility Yes Home Care Services No Caregiver after Discharge No Mental Status Oriented Power of Larry Operator No Anticipated Discharge Plan Post Acute Care Needs Other (comment) Plan communicated to patient/family Yes Resources Financial concerns Yes Transportation issues Yes Patient/Family concerns Yes Prescription Plan Yes Name of Pharmacy ([facility]) Anticipated Disposition Facility Type Other (Comment) Met with patient and discussed discharge planning, Pt is a 49 y.o., male who reports he has no family or fiends for social support. He is homeless, and reports his voucher has . He denies taking any home blood thinners, but during hospitalization has been receiving He prin. No low dose aspirin. No home O2. Patient's PCP is: Akin Matthews Patient's insurance:Medicaid Coverage concerns: No Medication coverage/concerns:No [facility] Delivery: Community resources utilized / needed: Needs Housing. Does receive food stamps. Assistance in transportation: No Identification of any specific education / training: TBD Barriers to Discharge / Alternative housing needed:Needs housing Anticipated DCP: D/C planning will be ongoing. He is homeless, has no transportation, and n o social support. Delaney Waller Rasheed Quesada MD - 05/24/2015 11:48 AM PDTFormatting of this note might be different from the origi nal. Progress Notes by Rasheed Driscoll MD at 05/24/15 7219 Author: Rasheed Driscoll MD Service: (none) Author Type: Physician Filed: 05/24/15 7405 Date of Service: 05/24/15 6941 Status: Signed Social Service Manager: Rasheed Driscoll MD (Physician) [facility] Service: Hospitalist Progress Note Hospital Day: LOS: 2 days Consultants: Treatment Team: Consulting Physician: Surendra Reyes MD Consulting Physician: Jin Arango MD Admitting Provider: Jace Keller MD The first problem in assessment is the principal problem. ASSESSMENT/ PLAN 1. Acute pancreatitis, unclear etiology: MR Manuel abdominal reviewed. Appreciate help from GI. No plan for ERCP at this point. We will continue clear liquid diet and advance to full liqui d later today. Continue with IV fluids and follow-up lipase and a morning 2. Transaminitis. He was slowly improving. Possibility of HIV cholangitis, but overall impr oving with follow-up CD4 count. 3. HIV: Discuss with ID, Dr. Dukes yesterday. Recommended to keep off HIV meds for now and f ollow-up in clinic. CD4 count viral load and genotype has been sent . 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 Personal communication requested for any clarification. SUBJECTIVE Events Overnight: *Patient's pain has been improving. No nausea, vomiting, had clear liqui d diet only for couple of hours. OBJECTIVE General: Well nourished. Psych: Alert and oriented x 3. Calm, cooperative. Cardiovascular: Regular rate and rhythm, no murmurs, no thrills. Normal PMI. Respiratory: Clear to auscultation, no wheezing or crackles, breathing non labored. Gastrointestinal: Soft, minimal epigastric tenderness, non-distended, positive bowel sounds . No HSM. Musculoskeletal: No edema in bilateral lower extremities. No joint swelling. Neck: No JVD, Trachea midline. Neurological: Non focal. Motor grossly intact. PROBLEM LIST Principal Problem: Acute pancreatitis Active Problems: HIV (human immunodeficiency virus infection) ([facility]) Obesity, unspecified Current smoker Hyperlipidemia Chest pain Abnormal CT of liver [facility] Past Medical History Diagnosis Date HIV (human immunodeficiency virus infection) ([facility]) Muscle spasms of neck Hyperlipidemia Cholelithiasis COPD (chronic obstructive pulmonary disease) ([facility]) Chronic mastoiditis Multiple joint pain 05/14/2013 Other chronic pain Neurosyphilis in male Blurred vision, bilateral HOME MEDICATIONS Prior to Admission medications Medication Sig Start Date End Date Taking? Authorizing Provider albuterol (PROVENTIL) (2.5 MG/3ML) 0.083% nebulizer solution inhale contents of 1 vial in n ebulizer every 4 hours if needed for shortness of breath 09/17/13 Yes GAYLA Cary amoxicillin-clavulanate (AUGMENTIN) 875-125 MG per tablet Take 1 tablet by mouth 2 (two) ti mes daily. 05/12/15 05/26/15 Yes Rickey Saucedo, DO etodolac (LODINE XL) 500 MG 24 hr tablet Take 1 tablet by mouth daily. 07/17/14 07/17/15 Yes Be njamin D Gold, DO fluticasone (FLOVENT HFA) 220 MCG/ACT inhaler Inhale 1 puff into the lungs 2 (two) times da laverne. Yes Historical Provider naproxen (NAPROSYN) 500 MG tablet Take 1 tablet by mouth 2 (two) times daily. For pain 05/11/16 Yes Rickey Saucedo, DO ritonavir (NORVIR) 100 MG capsule Take 100 mg by mouth 2 (two) times daily. Yes Historica l Provider VENTOLIN HFA 108 (90 BASE) MCG/ACT inhaler inhale 2 puffs by mouth INTO THE LUNGS every 4 h ours if needed for wheezing or shortness of breath 12/15/14 Yes WANDA Cary emtricitabine-tenofovir (TRUVADA) 200-300 MG per tablet Take 1 tablet by mouth daily. 4 05/12/15 Zita Enriquez MD HYDROcodone-acetaminophen (NORCO) 5-325 MG per tablet Take 1 tablet by mouth every 6 (six) hours as needed for Pain. 07/01/14 07/11/14 WANDA Jenkins DATA Vital Signs: BP 126/78 | Pulse 82 | Temp(Src) 97.8 F (36.6 C) (Oral) | Resp 18 | Ht 1.727 m (5' 8") | Wt 90.719 kg (200 lb) | BMI 30.42 kg/m2 | SpO2 92% Filed Vitals: 05/23/15 2316 05/24/15 0250 05/24/15 0739 05/24/15 1125 BP: 116/71 146/85 120/88 126/78 Pulse: 92 87 88 82 Temp: 97.7 F (36.5 C) 97.4 F (36.3 C) 97.6 F (36.4 C) 97.8 F (36.6 C) TempSrc: Oral Oral Oral Oral Resp: 18 18 18 Height: Weight: SpO2: 96% 94% 96% 92% Intake/Output Summary (Last 24 hours) at 05/24/15 1148 Last data filed at 05/24/15 1002 Gross per 24 hour Intake 3048 ml Output 1525 ml Net 1523 ml CBC: Lab Results Component Value Date WBC 3.95 05/24/2015 RBC 4.49 05/24/2015 HGB 12.6* 05/24/2015 HCT 39.0 05/24/2015 MCV 86.8 05/24/2015 MCH 28.1 05/24/2015 MCHC 32.4 05/24/2015 RDW 42.0 05/24/2015 PLT 126* 05/24/2015 MPV 9.6 05/24/2015 DIFFTYPE MANUAL 05/24/2015 CMP: Lab Results Component Value Date NA 134* 05/24/2015 K 3.7 05/24/2015 CL 103 05/24/2015 CO2 25 05/24/2015 ANIONGAP 10 05/24/2015 GLUF 93 05/24/2015 BUN 10 05/24/2015 CREATININE 0.69* 05/24/2015 BCR 14 05/24/2015 CA 8.3* 05/24/2015 PROT 6.2* 05/24/2015 ALB 3.1* 05/24/2015 GLOB 3.1 05/24/2015 BILITOT 0.9 05/24/2015 ALP 159* 05/24/2015 AST 210* 05/24/2015 ALT 242* 05/24/2015 EGFR >60 05/24/2015 Magnesium: Lab Results Component Value Date MG 1.8 05/24/2015 Phosphorus: Lab Results Component Value Date PHOS 2.3 05/24/2015 PT/INR: Lab Results Component Value Date INR 1.0 05/23/2015 PTT: Lab Results Component Value Date APTT 25 05/23/2015 [APTT Imaging @IMAGES@ Scheduled Medications famotidine 20 mg Oral BID Or famotidine 20 mg Intravenous BID fluticasone 1 puff Inhalation BID heparin (porcine) 5000 unit/0.5mL 5,000 Units Subcutaneous Q8H Continuous Infusions lactated ringers 150 mL/hr at 05/23/15 8329 PRN Medications albuterol, diphenhydrAMINE, HYDROmorphone OR HYDROmorphone, magnesium sulfate OR ma gnesium sulfate OR magnesium sulfate, ondansetron OR ondansetron, polyethylene glyco l, potassium chloride OR potassium chloride OR potassium chloride, zolpidem Rasheed Driscoll MD 05/24/201511:48 AM urendra Reyes MD - 05/24/2015 11:22 AM PDT Progress Notes by Surendra Reyes MD at 05/24/15 1122 Author: Surendra Reyes MD Service: Gastroenterology Author Type: Physician Filed: 05/24/15 1126 Date of Service: 05/24/151121 Status: Signed Social Service Manager: Surendra Reyes MD (Physician) [facility] Service: Gastroenterology Consult Follow Up Note Hospital Day: LOS: 2 days SUBJECTIVE Patient Summary: Patient is a 49-year-old male past medical history of HIV, COPD, ashtyn rosyphilis who presented to the hospital as a transfer from [place]. Patient had been a ca sino and developed chest pain. He was evaluated for this and cardiac etiology was ruled out fairly well. However on testing he was found to have a severely elevated lipase. Liver chemi stries are also mildly abnormal with elevation of transaminases. There is some concern that he had gallstone pancreatitis. An MRCP was completed showing "1. Moderately dilated hepat ic ductal system and mildly dilated common bile duct without evidence of a common bile duct stone, stricture or extrinsic compression. Findings may be due to dysfunction of the sphinc ter of Ovi 2. Pancreatic duct is mildly dilated to a diameter of 5.3 mm in the pancreatic head and sh ows questionable stricturing at the junction of the pancreatic neck and body. No pancreatic mass is identified. The anatomy does not suggest pancreas divisum. " Events Overnight: Was able to take liquid diet. This morning he developed abdominal pain after PO intake. Scheduled Medications famotidine 20 mg Oral BID Or famotidine 20 mg Intravenous BID fluticasone 1 puff Inhalation BID heparin (porcine) 5000 unit/0.5mL 5,000 Units Subcutaneous Q8H Continuous Infusions lactated ringers 150 mL/hr at 05/23/15 1839 PRN Medications albuterol, diphenhydrAMINE, HYDROmorphone OR HYDROmorphone, magnesium sulfate OR ma gnesium sulfate OR magnesium sulfate, ondansetron OR ondansetron, polyethylene glyco l, potassium chloride OR potassium chloride OR potassium chloride, zolpidem OBJECTIVE Vital Signs: BP 120/88 | Pulse 88 | Temp(Src) 97.6 F (36.4 C) (Oral) | Resp 18 | Ht 1.727 m (5' 8") | Wt 90.719 kg (200 lb) | BMI 30.42 kg/m2 | SpO2 96% Gen: NAD CV: Regular Lungs: CTAB Abd: Mild mid abdomen tenderness without guarding or rebound, +BS, no masses or organomegal y Ext: No LE edema HENT: EOMI, no scleral icterus Skin: Warm, moist, intact Neuro: Intact and symmetric grossly DATA Lab Results Component Value Date WBC 3.95 05/24/2015 HGB 12.6* 05/24/2015 HCT 39.0 05/24/2015 MCV 86.8 05/24/2015 PLT 126* 05/24/2015 Lab Results Component Value Date ALT 242* 05/24/2015 AST 210* 05/24/2015 BILITOT 0.9 05/24/2015 Lab Results Component Value Date CREATININE 0.69* 05/24/2015 BUN 10 05/24/2015 NA 134* 05/24/2015 K 3.7 05/24/2015 CL 103 05/24/2015 CO2 25 05/24/2015 PROBLEM LIST Principal Problem: Acute pancreatitis Active Problems: HIV (human immunodeficiency virus infection) ([facility]) Obesity, unspecified Current smoker Hyperlipidemia Chest pain Abnormal CT of liver ASSESSMENT & PLAN Pancreatitis Abnormal liver chemistries Abnormal imaging of pancreas - The patients pain is likely from pancreatitis. The question remains with the etiology o f his pancreatitis - Patient does not drink alcohol. - There are no gallstones on his imaging - Patient does smoke tobacco which is a known independent risk factor for pancreatitis - He has some very mild dilation of his biliary system which is nonspecific - There is no evidence of stricture - Liver chemistries improved again today - This suggests that maybe he had a stone which passed - Interestingly, the radiologist thinks that there may be some suggestion of stricturing o f the pancreatic duct. I do recommend that this be evaluated further some point. The recomm endation would be for him to obtain an endoscopic ultrasound. This is not available locally and could be performed as an outpatient. Will plan referral to [place] if patient agreeable after discharge. - Do not think that ERCP is required at this point - Continue clear liquids as tolerated - Continue supportive care for pancreatitis Surendra Reyes MD [facility] Gastroenterology 05/24/2015 onversion Trans action, Provider Unknown - 05/23/2015 4:53 PM PDT Case Management by LANDY Elliott at 05/23/151652 Author: LANDY Elliott Service: (none) Author Type: Beauty Culturist Filed: 05/23/151709 Date of Service: 05/23/151652 Status: Addendum Social Service Manager: LANDY Elliott (Beauty Culturist) Related Notes: Original Note by LANDY Elliott (Beauty Culturist) filed at 05/23/151654 In consideration of discharge planning, history of non compliance with medical treatment ne eds, homelessness and after discussion with patient's nurse and lead, CM will fax a referral to the following to be placed on a waiting list: [facility] [address], [address], [place] [address] KAREEM Rodriguez, project analyst for this program ([phone] direct phone line and fax is [phone]) Case note from 10/23/2014 indicates patient has a field nurse case manager from [facility] office in [place]: Inga Briceno [phone] and Kay was helping him with housing. onver brett Transaction, Provider Unknown - 05/23/2015 3:03 AM PDT Progress Notes by Yarely Soriano RPH at 05/23/15302 Author: Yarely Soriano RPH Service: (none) Author Type: Pharmacist Filed: 05/23/15302 Date of Service: 05/23/15302 Status: Signed Social Service Manager: Yarely Soriano RPH (Pharmacist) Clinical Pharmacy Note: Renal Monitoring Slava Anderson 49 y.o. male Height: 172.7 cm Weight: 90.7 kg CREATININE: 0.89 (05/23/15134) Estimated creatinine clearance - 111 mL/min Pharmacy dosing for renal function per Dr. Ng. Currently there are no medications needing to be adjusted. Pharmacy will continue to monito r for changes in medication orders and in renal function and adjust accordingly per protocol . Yarely Soriano PharmKalyn 05/23/2015 3:03 AM docume nted in this encounter H&P Notes Jace Keller MD - 05/23/2015 1:54 AM PDTFormatting of this note might be diffe rent from the original. H&P by Jace Keller MD at 05/23/15 0154 Author: Jace Keller MD Service: Hospitalist Author Type: Physician Filed: 05/23/15 0223 Date of Service: 05/23/15153 Status: Signed Social Service Manager: Jace Keller MD (Physician) [facility] Service: Hospitalist Admission History & Physical Date of Admission: 05/22/2015 Requesting Physician: Dr Mitchell, Emergency Department Reason for Admission: Transfer from [facility] due to abnormal CT liver - dilated hepatic ducts History Obtained From: patient CHIEF COMPLAINT: Chest pain HISTORY OF PRESENT ILLNESS The patient is a 49 y.o. male with significant past medical history of HIV noncompliant wi th ART, hyperlipidemia, tobacco abuse, COPD, neurosyphilis who presents with Chest pain Patient refers that his symptoms are started yesterday around 5:00 in the morning when he j ust arrived to the [facility] when history developing severe chest discomfort. Located in the l ower chest, upper abdomen. Radiated to his back. Pressure-like sensation. Nonobstructing of intensity. There was accompained with some dyspnea but denies any nausea or vomiting, sw eating, lightheadedness or syncope. He was concerned and EMS was called, sublingual nitrogl ycerin were given without improvement of his symptoms. Reason why he was sent to [facility] for further assessment. The patient denies any recent worsening of his chronic cough. Denies any sputum production, no fever, chills or night sweats. Denies any lower e xtremity edema, paroxysmal nocturnal dyspnea or orthopnea. In the ED at [facility] EKG w as done which shows normal sinus rhythm with no acute ST changes. First set of cardiac enzy mes negative. CT of the abdomen and pelvis were done which came back abnormal with mild int rahepatic ductal dilatation. Due to this abnormal result the patient was transferred to [facility] since [place] did not have any GI backup. At this point the patient will be admitte d under the hospital service for further management REVIEW OF SYSTEMS Review of Systems Constitutional: Positive for fatigue. Negative for chills. HENT: Negative for postnasal drip and rhinorrhea. Respiratory: Positive for cough and shortness of breath. Negative for apnea, choking, wheez ing and stridor. Cardiovascular: Positive for chest pain. Gastrointestinal: Positive for nausea and abdominal pain. Negative for vomiting, diarrhea a nd abdominal distention. Genitourinary: Negative for dysuria and difficulty urinating. Musculoskeletal: Negative for arthralgias. Skin: Negative for color change. Neurological: Negative for dizziness, seizures and headaches. Psychiatric/Behavioral: Negative for confusion and agitation. Past Medical History Diagnosis Date HIV (human immunodeficiency virus infection) ([facility]) Muscle spasms of neck Hyperlipidemia Cholelithiasis COPD (chronic obstructive pulmonary disease) ([facility]) Chronic mastoiditis Multiple joint pain 05/14/2013 Other chronic pain Neurosyphilis in male Blurred vision, bilateral Past Surgical History Procedure Laterality Date Tonsillectomy Fistula repair Tympanoplasty No current facility-administered medications on file prior to encounter. Current Outpatient Prescriptions on File Prior to Encounter Medication Sig Dispense Refill albuterol (PROVENTIL) (2.5 MG/3ML) 0.083% nebulizer solution inhale contents of 1 vial in nebulizer every 4 hours if needed for shortness of breath 90 mL PRN amoxicillin-clavulanate (AUGMENTIN) 875-125 MG per tablet Take 1 tablet by mouth 2 (two ) times daily. 20 tablet 0 [] cyclobenzaprine (FLEXERIL) 10 MG tablet Take 1 tablet by mouth every 8 (eight ) hours as needed for Muscle spasms. 20 tablet 0 etodolac (LODINE XL) 500 MG 24 hr tablet Take 1 tablet by mouth daily. 30 tablet 0 fluticasone (FLOVENT HFA) 220 MCG/ACT inhaler Inhale 1 puff into the lungs 2 (two) time s daily. naproxen (NAPROSYN) 500 MG tablet Take 1 tablet by mouth 2 (two) times daily. For pain 14 tablet 0 ritonavir (NORVIR) 100 MG capsule Take 100 mg by mouth 2 (two) times daily. VENTOLIN HFA 108 (90 BASE) MCG/ACT inhaler inhale 2 puffs by mouth INTO THE LUNGS every 4 hours if needed for wheezing or shortness of breath 18 g 0 emtricitabine-tenofovir (TRUVADA) 200-300 MG per tablet Take 1 tablet by mouth daily. 1 20 tablet 3 HYDROcodone-acetaminophen (NORCO) 5-325 MG per tablet Take 1 tablet by mouth every 6 (s ix) hours as needed for Pain. 30 tablet 0 Immunizations: Influenza: Pneumoccocal: No Known Allergies (Not in a hospital admission) Family History Problem Relation Age of Onset Other (see comments) Mother adopted Other (see comments) Father adopted History Social History Marital Status: Single Spouse [...] Local resident , full code, no falls. PHYSICAL EXAM Vital Signs: BP 110/60 | Pulse 86 | Temp(Src) 98 F (36.7 C) (Oral) | Resp 16 | Wt 90.719 kg (200 lb) | SpO2 92% Physical Exam Constitutional: He is oriented to person, place, and time. He appears well-developed. HENT: Head: Normocephalic and atraumatic. Eyes: EOM are normal. Pupils are equal, round, and reactive to light. Neck: Normal range of motion. Neck supple. No JVD present. Cardiovascular: Normal rate, regular rhythm and normal heart sounds. Exam reveals no fermin p and no friction rub. No murmur heard. Pulmonary/Chest: Effort normal. No respiratory distress. He has no wheezes. He has no rales . He exhibits no tenderness. Abdominal: Soft. He exhibits no distension and no mass. There is tenderness in the epigastr ic area. There is no rebound and no guarding. No hernia. Musculoskeletal: He exhibits no edema. Neurological: He is alert and oriented to person, place, and time. DATA Results Procedure Component Value Units Date/Time CBC w Auto Diff [[id number]] Collected: 05/23/15134 Specimen Information: Blood Updated: 05/23/15149 WBC 4.57 K/uL RBC 4.94 M/uL HGB 14.0 g/dL HCT 42.5 % MCV 86.1 fl MCH 28.4 pg MCHC 33.0 g/dL RDW SD 41.6 fl PLT 163 K/uL MPV 8.8 fl DIFF TYPE PENDING Complete Metabolic Panel [[id number]] Collected: 05/23/15134 Specimen Information: Blood Updated: 05/23/15143 Lipase [[id number]] Collected: 05/23/15134 Specimen Information: Blood Updated: 05/23/15143 RPR Titer [[id number]] Collected: 05/22/15102 Specimen Information: Blood Updated: 05/23/15112 HIV1 US viral load P [[id number]] Collected: 05/22/15102 Updated: 05/23/15112 T-helper cells (CD4) count [[id number]] Collected: 05/22/15102 Specimen Information: Blood Updated: 05/23/15112 Labs from [place] CBC with a white blood cell 4.8, hemoglobin of 13.9, hematocrit of 44.6, platelet count of 156, d-dimer negative at 183, glucose of 107, creatinine of 0.72, sodium 138, potassium of 4 , chloride of 104, calcium of 8.9, magnesium 1.6, Total protein of 7.4, albumin of 3.6, total bilirubin of 0.6, AST of 93, ALT of 52, alkalin e phosphatase of 78, lipase of 337, troponin T less than 0.0 10 PROBLEM LIST Principal Problem: Abnormal CT of liver Active Problems: HIV (human immunodeficiency virus infection) (HCC) Obesity, unspecified Current smoker Hyperlipidemia Chest pain ASSESSMENT & PLAN Impression patient is a 49 y.o. male with significant past medical history of HIV noncompliant with A RT, hyperlipidemia, tobacco abuse, COPD, neurosyphilis who presents with Chest pain CT abdomen and pelvis - normal gallbladder, mild intrahepatic ductal dilatation, pancreas n ormal, spleen normal, colon Unremarkable, normal appendix. Assessment -Abnormal CT of liver. Will do an MRCP to rule out obstruction -Increased lipase. He had Kadlec level at 4700. History and physical consistent with acut e pancreatitis -Acute pancreatitis. Possible triggers include choledocholithiasis, metabolic disorder/dys lipidemia -Chest pain. Will rule out cardiac etiologies including acute coronary syndrome but atypic al presentation is more consistent with current acute pancreatitis -HIV. Concerning patient's noncompliance with medication therapy. Patient has not been ta anders his medications for over a month. We will check viral load and CD [address] [facility] -History of neurosyphilis status post treatment -Tobacco abuse -Hyperlipidemia -Obesity Plan We will admit to inpatient Nothing by mouth IV fluids and likely represent therapy Pain management Antiemetic therapy UA, urine culture, blood cultures 2 MRCP. Pending results of MRCP morning hospitalist to consult GI for further management-? Need for ERCP Viral load and CD4 count result pending at this point Will restart anti-retroviral therapy. Patient highly encouraged to follow with infectious disease Highly encouraged tobacco cessation Telemetry Cardiac enzymes 3 DVT GI Prophylaxis Disposition: inpatient Code Status: Prior Primary Care Physician: PER PT NONE Jace Keller MD 05/23/2015 documented i n this encounter Procedure Notes Jin Arango - 05/24/2015 9:47 PM PDTFormatting of this note might be different from the o riginal. Procedures by Jin Arango MD at 05/24/152146 Author: Jin Arango MD Service: Gastroenterology Author Type: Physician Filed: 05/26/152130 Date of Service: 05/24/152146 Status: Signed Social Service Manager: Jin Arango MD (Physician) Related Notes: Original Note by Jin Arango MD (Physician) filed at 05/24/152153 Procedure Orders: 1. Case Request Operating Room: ENDOSCOPIC RETROGRADE CHOLANGIOPANCREATOGRAPHY [[id number]] ordered by Jin Arango MD at 05/23/152111 Pre-procedure Diagnoses: 1. 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 Acute pancreatitis, unspecified pancreatitis type [577.0] Post-procedure Diagnoses: 1. 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 ERCP W/SPHNCTROTOMY/PAPILLOTOMY [52415 (CPT)] PROCEDURE Endoscopic retrograde cholangiopancreatography with biliary sphincterotomy. ENDOSCOPIST Jin Arango MD HISTORY AND INDICATIONS This ERCP was performed for further management of intra and extrahepatic biliary dilation a nd pancreatic duct dilation in the setting of HIV positivity. There was some suspicion that he had left hepatic duct stricture as left intrahepatic duct was a lot more prominent. INSTRUMENT Olympus video duodenoscope. MEDICATIONS The patient was under general anesthesia with endotracheal intubation. DESCRIPTION OF PROCEDURE Informed consent was obtained from the patient after explaining the indication and possible complications including but not excluding bleeding, perforation, infection, reaction to med ication and pancreatitis. The patient was brought to the endoscopy room and intubated. The p atient was placed in the prone position. Following that, the duodenoscope was inserted into the oral cavity and under direct visualization, advanced to the duodenum. The visualized sto mach and esophagus appeared unremarkable. The duodenum itself appeared unremarkable. The jeff or ampulla was seen, which was very flat and there was a very tiny hole that bile was coming out. It was obvious there was ampullary stenosis. Cannulation into the common bile duct was challenging. Initially, pancreatogram was visualized, which showed smooth dilated pancreati c duct without any stricture. Using wire-guided technique, I was able to eventually cannulat e in the common bile duct, which appeared dilated and both intra and extrahepatic duct was d ilated. Left side hepatic duct system was explored in detail but there was no stricture note d. Right hepatic duct system was less prominent but dilated. Common hepatic and common bile duct were dilated and smooth without any stricture. Biliary sphincterotomy was made over the guidewire and about 10 mm incision was made. At that point, the procedure was terminated. T he scope was withdrawn and all the fluid and gas was suctioned out. Otherwise, the patient t olerated the procedure well without any immediate complications. IMPRESSION 1. 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 2. Status post biliary sphincterotomy. RECOMMENDATIONS 1. Monitor liver enzymes and pancreatic enzymes. 2. Clear liquid diet and advance as tolerated once pancreatitis gets better. 3. No aspirin or NSAIDs at least for 3 days. documented in this encounte r Consult Notes Jin Arango - 05/24/2015 3:47 PM PDTFormatting of this note might be different from the o riginal. Consults by Jin Arango MD at 05/24/15 0073 Author: Jin Arango MD Service: Gastroenterology Author Type: Physician Filed: 05/26/15 0603 Date of Service: 05/24/15 1104 Status: Signed Social Service Manager: Jin Arango MD (Physician) Related Notes: Original Note by Jin Arango MD (Physician) filed at 05/24/15 7780 [facility] Service: Gastroenterology Initial Consult Note Date of Admission: 05/22/2015 Reason for Consultation: Acute pancreatitis and intr and extrahepatic duct dilation as wel l as PD dilation in the setting of HIV positivity. Requesting Physician: Dr. Driscoll History Obtained From: patient, chart review HISTORY OF PRESENT ILLNESS The patient is a 49 y.o. male who is HIV positive related to homosexual activity, has not h ad any other opportunistic infection other than he had neurosyphilis and possibly is still e xisting. Now he presents with a 4- to 5-day history of upper abdominal pain in the epigastri c area which has progressively gotten worse, so by the time he went to [facility] in [place], he was found to have acute pancreatitis with elevated liver enzymes. Liver enz ymes done a few months ago were normal, indicating this is a new finding. He denies any prio r abdominal pain, nausea, vomiting, or bowel problems. He has been noncompliant with HIV porter atment. He just had a new infectious disease specialist, in the meantime he developed this a bdominal pain. He denies any fever or chills. REVIEW OF SYSTEMS CONSTITUTIONAL: There have been no fever, chills, weight loss, or anorexia. RESPIRATORY: negative for hemoptysis and chest pain CARDIOVASCULAR: negative for chest pain or palpitation GASTROINTESTINAL: positive for abdominal pain GENITOURINARY: negative for dysuria and hematuria HEMATOLOGIC/LYMPHATIC: negative for easy bruising and bleeding Past Medical History Diagnosis Date HIV (human immunodeficiency virus infection) ([facility]) Muscle spasms of neck Hyperlipidemia Cholelithiasis COPD (chronic obstructive pulmonary disease) ([facility]) Chronic mastoiditis Multiple joint pain 05/14/2013 Other chronic pain Neurosyphilis in male Blurred vision, bilateral Past Surgical History Procedure Laterality Date Tonsillectomy Fistula repair Tympanoplasty No Known Allergies Prescriptions prior to admission Medication Sig Dispense Refill albuterol (PROVENTIL) (2.5 MG/3ML) 0.083% nebulizer solution inhale contents of 1 vial in nebulizer every 4 hours if needed for shortness of breath 90 mL PRN amoxicillin-clavulanate (AUGMENTIN) 875-125 MG per tablet Take 1 tablet by mouth 2 (two ) times daily. 20 tablet 0 [] cyclobenzaprine (FLEXERIL) 10 MG tablet Take 1 tablet by mouth every 8 (eight ) hours as needed for Muscle spasms. 20 tablet 0 etodolac (LODINE XL) 500 MG 24 hr tablet Take 1 tablet by mouth daily. 30 tablet 0 fluticasone (FLOVENT HFA) 220 MCG/ACT inhaler Inhale 1 puff into the lungs 2 (two) time s daily. naproxen (NAPROSYN) 500 MG tablet Take 1 tablet by mouth 2 (two) times daily. For pain 14 tablet 0 ritonavir (NORVIR) 100 MG capsule Take 100 mg by mouth 2 (two) times daily. VENTOLIN HFA 108 (90 BASE) MCG/ACT inhaler inhale 2 puffs by mouth INTO THE LUNGS every 4 hours if needed for wheezing or shortness of breath 18 g 0 emtricitabine-tenofovir (TRUVADA) 200-300 MG per tablet Take 1 tablet by mouth daily. 1 20 tablet 3 HYDROcodone-acetaminophen (NORCO) 5-325 MG per tablet Take 1 tablet by mouth every 6 (s ix) hours as needed for Pain. 30 tablet 0 Scheduled Medications famotidine 20 mg Oral BID Or famotidine 20 mg Intravenous BID fluticasone 1 puff Inhalation BID heparin (porcine) 5000 unit/0.5mL 5,000 Units Subcutaneous Q8H Continuous Infusions lactated ringers 150 mL/hr at 05/23/15 1839 PRN Medications albuterol, diphenhydrAMINE, HYDROmorphone OR HYDROmorphone, magnesium sulfate OR ma gnesium sulfate OR magnesium sulfate, ondansetron OR ondansetron, polyethylene glyco l, potassium chloride OR potassium chloride OR potassium chloride, zolpidem Family History Problem Relation Age of Onset Other (see comments) Mother adopted Other (see comments) Father adopted History Smoking status Current Every Day Smoker -- 1.00 packs/day for 30 years Types: Cigarettes Smokeless tobacco Never Used History Alcohol Use No History Drug Use Yes Special: Marijuana Comment: medical card PHYSICAL EXAM Vital Signs: BP 146/85 | Pulse 69 | Temp(Src) 96 F (35.6 C) (Oral) | Resp 18 | Ht 1.727 m (5' 8") | Wt 90.719 kg (200 lb) | BMI 30.42 kg/m2 | SpO2 95% GENERAL APPEARANCE: An obese, middle-aged man lying in bed, does not appear to be in any ac sheryl distress, answering all the questions appropriately. HEENT EXAMINATION: Atraumatic, normocephalic. Anicteric. [place] conjunctivae. No nose or gum bleeding. No oral thrush. NECK: Supple. No lymphadenopathy. LUNGS: Clear without rales, rhonchi, wheeze. HEART: Regular sinus rhythm without any murmur or gallop. ABDOMEN: Obese. Mild epigastric tenderness noted. No rebound tenderness noted. No hepatospl enomegaly noted. No bruit heard. RECTAL EXAM: Deferred. EXTREMITIES: No cyanosis, clubbing, or edema noted. NEUROLOGIC: No obvious focal deficit noted. DATA Results Procedure Component Value Units Date/Time Potassium [[id number]] Collected: 05/24/15 1118 Specimen Information: Blood Updated: 05/24/15 1146 POTASSIUM 3.7 mmol/L Magnesium [[id number]] Collected: 05/24/15 1118 Specimen Information: Blood Updated: 05/24/15 1146 MAGNESIUM 1.8 mg/dL T-helper cells (CD4) count [[id number]] (Abnormal) Collected: 05/22/15 0103 Specimen Information: Blood Updated: 05/24/15 0912 SOURCE BLOOD WBC 3.9 K/uL Lymphs 40.4 % Lymphs(Absolute) 1.60 K/uL CD4 9.9 (L) % CD4 ABS 158 (L) /uL CD4 NOTE SEE BELOW Phosphorus [[id number]] Collected: 05/24/15529 Specimen Information: Blood Updated: 05/24/15702 PHOSPHORUS 2.3 mg/dL Comprehensive metabolic panel [[id number]] (Abnormal) Collected: 05/24/15529 Specimen Information: Blood Updated: 05/24/15702 SODIUM 134 (L) mmol/L POTASSIUM 3.7 mmol/L CHLORIDE 103 mmol/L CO2 25 mmol/L ANION GAP AGAP 10 mmol/L GLUCOSE 93 mg/dL BUN 10 mg/dL CREATININE 0.69 (L) mg/dL BUN/CREAT 14 CALCIUM 8.3 (L) mg/dL TOTAL PROTEIN 6.2 (L) g/dL Albumin 3.1 (L) g/dL GLOBULIN 3.1 g/dL A/G 1.0 TBIL 0.9 mg/dL ALK PHOS 159 (H) U/L AST 210 (H) U/L ALT 242 (H) U/L EGFR >60 mL/min/1.73m2 Lipase [[id number]] (Abnormal) Collected: 05/24/15529 Specimen Information: Blood Updated: 05/24/15 0617 LIPASE 710 (H) U/L Comprehensive metabolic panel [[id number]] (Abnormal) Collected: 05/23/15318 Specimen Information: Blood Updated: 05/23/15 0505 SODIUM 135 mmol/L POTASSIUM 3.7 mmol/L CHLORIDE 105 mmol/L CO2 27 mmol/L ANION GAP AGAP 7 mmol/L GLUCOSE 100 (H) mg/dL BUN 15 mg/dL CREATININE 0.68 (L) mg/dL BUN/CREAT 22 CALCIUM 8.2 (L) mg/dL TOTAL PROTEIN 6.7 g/dL Albumin 3.4 (L) g/dL GLOBULIN 3.3 g/dL A/G 1.0 TBIL 1.6 (H) mg/dL ALK PHOS 129 (H) U/L AST 376 (H) U/L ALT 263 (H) U/L EGFR >60 mL/min/1.73m2 Bili, direct [[id number]] (Abnormal) Collected: 05/23/15318 BILI, DIRECT 1.1 (H) mg/dL Updated: 05/23/15504 Amylase [[id number]] (Abnormal) Collected: 05/23/15318 AMYLASE 230 (H) U/L Updated: 05/23/15504 Lipase [[id number]] (Abnormal) Collected: 05/23/15318 Specimen Information: Blood Updated: 05/23/15415 LIPASE 3319 (H) U/L Complete Metabolic Panel [[id number]] (Abnormal) Collected: 05/23/15134 Specimen Information: Blood Updated: 05/23/15203 SODIUM 140 mmol/L POTASSIUM 3.9 mmol/L CHLORIDE 108 mmol/L CO2 25 mmol/L ANION GAP AGAP 11 mmol/L GLUCOSE 106 (H) mg/dL BUN 14 mg/dL CREATININE 0.89 mg/dL BUN/CREAT 16 CALCIUM 7.6 (L) mg/dL TOTAL PROTEIN 7.5 g/dL Albumin 3.1 (L) g/dL GLOBULIN 4.4 g/dL A/G 0.7 (L) TBIL 1.4 mg/dL ALK PHOS 152 (H) U/L AST 485 (H) U/L ALT 339 (H) U/L EGFR >60 mL/min/1.73m2 Lipase [[id number]] (Abnormal) Collected: 05/23/15134 Specimen Information: Blood Updated: 05/23/15 020 LIPASE 4748 (H) U/L Medical Record Review: done Radiology Review: MRI with MRCP: 1. Moderately dilated hepatic ductal system and mildly dilated common bile duct without corey dence of a common bile duct stone, stricture or extrinsic compression. Findings may be due t o dysfunction of the sphincter of Ovi 2. Pancreatic duct is mildly dilated to a diameter of 5.3 mm in the pancreatic head and solomon ws questionable stricturing at the junction of the pancreatic neck and body. No pancreatic m ass is identified. The anatomy does not suggest pancreas divisum. Patient Active Problem List Diagnosis HIV (human immunodeficiency virus infection) (HCC) Multiple joint pain Depression with anxiety Myalgia Chronic back pain Abdominal pain, right upper quadrant Nausea with vomiting Obesity, unspecified Hypomagnesemia Acute bronchitis COPD exacerbation (HCC) Current smoker Hyperlipidemia Neurosyphilis in male Chest pain Abnormal CT of liver Acute pancreatitis ASSESSMENT & PLAN This is a 49-year-old obese male, HIV positive related to homosexual activities. He also mercado s a history of neurosyphilis. He now presents with a several day history of epigastric pain and found to have acute pancreatitis and markedly elevated liver enzymes. CT scan showed dil ated bile duct so MRI with MRCP was performed which showed dilation of the pancreatic duct, CBD, and intrahepatic duct. Careful review of the MRI and MRCP showed possible stricture at the left hepatic duct area with proximal dilation. Thee were no obvious filling defects. The ampulla level appears to be without any obvious mass effect, suspicious if the patient just has an ampullary stricture leading into dilation of the PD and CBD as well as intrahepatic duct. 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 Discusse d with the patient regarding ERCP with sphincterotomy as well as possible dilation and stent placement into the left hepatic duct system. He understands there is a small risk of bleedi ng, perforation, infection, and pancreatitis and agreed to proceed. Code Status: Full Code Primary Care Physician: Akin Matthews Thank you for allowing me to participate in the care of this patient. Jin Arango MD 05/24/2015 Surendra Gardner MD - 0 05/23/2015 8:15 PM PDT Consults by Surendra Reyes MD at 05/23/152014 Author: Surendra Reyes MD Service: Gastroenterology Author Type: Physician Filed: 05/23/152021 Date of Service: 05/23/152014 Status: Signed Social Service Manager: Surendra Reyes MD (Physician) Consult Orders: 1. Inpatient consult to GI [[id number]] ordered by Rasheed Driscoll MD at 05/23/15 1931 [facility] Service: Gastroenterology Initial Consult Note Date of Visit: 05/23/2015 Primary Care Physician: PER PT NONE Reason for Consultation: Abnormal liver chemistries, abnormal imaging liver, pancreatitis Requesting Physician: MD Americo History Obtained From: patient CHIEF COMPLAINT: Chief Complaint Patient presents with Abdominal Pain epigastric pain, pancreatitis Chest Pain HISTORY OF PRESENT ILLNESS Patient is a 49-year-old male past medical history of HIV, COPD, neurosyphilis who presente d to the hospital as a transfer from [place]. 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 He was evaluated for this and cardiac etiology was ruled out fairly well. However on testing he was found to have a severely elevated lipase. Liver chemistries are also mildly abnormal with elevation of transaminases. There is some concern that he had gallstone pancre atitis. An [place] that it filled the head the ability to evaluate this adequately sedated transferred to [facility] for higher level of care. An MRCP was completed this morning/afterno on. Patient states that the pain that he was having has basically resolved. His only compla int today is that he is hungry. He denies any nausea or vomiting. He denies any diarrhea or constipation. Denies any blood in his stool. Patient denies drinking alcohol. He does smoke. MRCP shows "1. Moderately dilated hepatic ductal system and mildly dilated common bile duct without evidence of a common bile duct stone, stricture or extrinsic compression. Findings may be due to dysfunction of the sphincter of Ovi 2. Pancreatic duct is mildly dilated to a diameter of 5.3 mm in the pancreatic head and solomon ws questionable stricturing at the junction of the pancreatic neck and body. No pancreatic m ass is identified. The anatomy does not suggest pancreas divisum." REVIEW OF SYSTEMS 10 system review of systems obtained. See HPI, otherwise negative. No Known Allergies Current Facility-Administered Medications Medication Dose Route Frequency Provider Last Rate Last Dose albuterol (PROVENTIL HFA;VENTOLIN HFA) inhaler 1 puff Inhalation Q6H PRN Jace Serra MD diphenhydrAMINE (BENADRYL) injection 25 mg 25 mg Intravenous Q6H PRN Jace Mar MD 25 mg at 05/23/15 0940 famotidine (PEPCID) tablet 20 mg 20 mg Oral BID Jace Keller MD 20 mg at 05/23/15 0906 Or famotidine (PEPCID) IVPB 20 mg 20 mg Intravenous BID Jace Keller MD fluticasone (FLOVENT HFA) 220 MCG/ACT inhaler 1 puff 1 puff Inhalation BID Jace Tucker MD 1 puff at 05/23/15 0906 heparin (porcine) 5000 unit/0.5mL injection 5,000 Units 5,000 Units Subcutaneous Q8H C mooktosejal Keller MD 5,000 Units at 05/23/15 1341 HYDROmorphone (DILAUDID) injection 0.5 mg 0.5 mg Intravenous Q3H PRN Jace Mar MD Or HYDROmorphone (DILAUDID) injection 1 mg 1 mg Intravenous Q3H PRN Jace perez MD 1 mg at 05/23/15 0936 lactated ringers infusion Intravenous Continuous Rsaheedwilliam Driscoll MD 150 mL/hr at 05/23/15 1839 magnesium sulfate 1 g/50 mL IVPB 1 g Intravenous PRN Jace Keller MD 1 g at 05/23/15 0533 Or magnesium sulfate 2 g/50 mL IVPB 2 g Intravenous PRN Jace Keller MD Or magnesium sulfate 3 g/50 mL IVPB 3 g Intravenous PRN Jace Keller MD nicotine (NICODERM CQ) 21 MG/24HR patch 1 patch 1 patch Transdermal Once Sheila islas DO 1 patch at 05/22/15 5778 ondansetron (ZOFRAN) tablet 4 mg 4 mg Oral Q6H PRN Jace Keller MD Or ondansetron (ZOFRAN) injection 4 mg 4 mg Intravenous Q6H PRN Cameron Mendoza polyethylene glycol (GLYCOLAX) packet 17 g 17 g Oral Daily PRN Jace Keller MD potassium chloride 20 mEq in 260 mL IVPB 20 mEq Intravenous PRN Jace Keller MD 20 mEq at 05/23/15 0719 Or potassium chloride 40 mEq in 520 mL IVPB 40 mEq Intravenous PRN Jace Keller MD Or potassium chloride 60 mEq in 530 mL IVPB 60 mEq Intravenous PRN Jace Keller MD zolpidem (AMBIEN) tablet 5 mg 5 mg Oral Nightly PRN Jace Keller MD Past Medical History Diagnosis Date HIV (human immunodeficiency virus infection) (HCC) Muscle spasms of neck Hyperlipidemia Cholelithiasis COPD (chronic obstructive pulmonary disease) (HCC) Chronic mastoiditis Multiple joint pain 05/14/2013 Other chronic pain Neurosyphilis in male Blurred vision, bilateral Past Surgical History Procedure Laterality Date Tonsillectomy Fistula repair Tympanoplasty Family History Problem Relation Age of Onset Other (see comments) Mother adopted Other (see comments) Father adopted History Social History Marital Status: Single Spouse [...] Local resident , full code, no falls. History Smoking status Current Every Day Smoker -- 1.00 packs/day for 30 years Types: Cigarettes Smokeless tobacco Never Used History Alcohol Use No History Drug Use Yes Special: Marijuana Comment: medical card History Sexual Activity Sexual Activity: Partners: Male Control/ Protection: Condom PHYSICAL EXAM Vital Signs: BP 126/83 | Pulse 94 | Temp(Src) 97.5 F (36.4 C) (Oral) | Resp 18 | Ht 1.727 m (5' 8") | Wt 90.719 kg (200 lb) | BMI 30.42 kg/m2 | SpO2 96% Gen: NAD CV: Regular Lungs: CTAB Abd: Non-tender, +BS, no masses or organomegaly Ext: No LE edema HENT: EOMI, no scleral icterus Skin: Warm, moist, intact Neuro: Intact and symmetric grossly DATA Lab Results Component Value Date WBC 3.90 05/23/2015 HGB 13.4 05/23/2015 HCT 41.8 05/23/2015 MCV 86.9 05/23/2015 PLT 151 05/23/2015 Lab Results Component Value Date ALT 263* 05/23/2015 AST 376* 05/23/2015 BILITOT 1.6* 05/23/2015 Lab Results Component Value Date INR 1.0 05/23/2015 INR 1.0 10/31/2014 INR 1.0 10/22/2014 Lab Results Component Value Date LIPASE 3319* 05/23/2015 ASSESSMENT & PLAN Pancreatitis Abnormal liver chemistries Abnormal imaging of pancreas - The patients pain is likely from pancreatitis. The question remains with the etiology o f his pancreatitis - Patient does not drink alcohol. - There are no gallstones on his imaging - Patient does smoke tobacco which is a known independent risk factor for pancreatitis - He has some very mild dilation of his biliary system which is nonspecific - There is no evidence of stricture - Liver chemistries are improving significantly - This suggests that maybe he had a stone which passed - Interestingly, the radiologist thinks that there may be some suggestion of stricturing o f the pancreatic duct. I do recommend that this be evaluated further some point. The recomm endation would be for him to obtain an endoscopic ultrasound. This is not available locally and could be performed as an outpatient. Will plan referral to [place] if patient agreeable after discharge. - Do not think that ERCP is required at this point - I will give him clear liquids. Diet can be advanced if he tolerates this - Continue supportive care for pancreatitis Thank you for allowing me to participate in the care of this patient. I look forward to gabino mcbride along with you. Please don't hesitate to call with any questions. Surendra Reyes MD [facility] Gastroenterology 05/23/2015 documented in th is encounter ED Notes Sheila Mitchell DO - 05/22/2015 11:02 PM PDTFormatting of this note might be different fro m the original. ED Provider Notes by Sheila Mitchell DO at 05/22/152301 Author: Sheila Mitchell DO Service: Emergency Department Author Type: Physician Filed: 05/23/15 0313 Date of Service: 05/22/152301 Status: Signed Social Service Manager: Sheila Mitchell DO (Physician) Procedures Additional Documentation Procedures [facility] Department of Emergency Medicine Pre-arrival Provider: Another ED Provider Name: Dr. Sanches from [facility] Pertinent History and Concerns: Probable gallstone pancreatitis. Dr. Motley rec MRCP. H/o HIV. Lipase 337, LFTs normal. CT shows dilated intrahepatic duct. (05/22/152001 : Hammad Talbot MD) HPI History of Present Illness Patient Identification Slava Anderson is a 49 y.o. male. Patient information was obtained from patient. History/Exam limitations: none. Patient presented to the Emergency Department by: [facility] Chief Complaint Chief Complaint Patient presents with Abdominal Pain epigastric pain, pancreatitis Chest Pain The patient complains of lower chest pain. Onset of symptoms was 2300, with a worsening cou rse since that time. The symptoms are described to be of 7/10 severity. Denies nausea, vomi ting, fever, dyspnea. The patient describes the quality and location of the symptoms as the following: dull pain, located over lower sternum. Nothing makes it worse or better. Was see n at [facility] in [place], dx gallstone pancreatitis and sent here as they do not have GI coverage. Past Medical History Diagnosis Date HIV (human immunodeficiency virus infection) ([facility]) Muscle spasms of neck Hyperlipidemia Cholelithiasis COPD (chronic obstructive pulmonary disease) ([facility]) Chronic mastoiditis Multiple joint pain 05/14/2013 Other [...] shortness of breath 09/17/13 Yes GAYLA Cary P amoxicillin-clavulanate (AUGMENTIN) 875-125 MG per tablet Take 1 tablet by mouth 2 (two) ti mes daily. 05/12/15 05/26/15 Yes Rickey Saucedo DO cyclobenzaprine (FLEXERIL) 10 MG tablet Take 1 tablet by mouth every 8 (eight) hours as nee ded for Muscle spasms. 05/12/15 05/22/15 Yes Rickey Saucedo DO etodolac (LODINE XL) 500 MG 24 hr tablet Take 1 tablet by mouth daily. 07/17/14 07/17/15 Yes Be njamin D Gold, DO fluticasone (FLOVENT HFA) 220 MCG/ACT inhaler Inhale 1 puff into the lungs 2 (two) times da laverne. Yes Historical Provider naproxen (NAPROSYN) 500 MG tablet Take 1 tablet by mouth 2 (two) times daily. For pain 05/11/16 Yes Rickey Saucedo, DO ritonavir (NORVIR) 100 MG capsule Take 100 mg by mouth 2 (two) times daily. Yes Historica l Provider VENTOLIN HFA 108 (90 BASE) MCG/ACT inhaler inhale 2 puffs by mouth INTO THE LUNGS every 4 h ours if needed for wheezing or shortness of breath 12/15/14 Yes WANDA Cary emtricitabine-tenofovir (TRUVADA) 200-300 MG per tablet Take 1 tablet by mouth daily. 4 05/12/15 Zita Enriquez MD HYDROcodone-acetaminophen (NORCO) 5-325 MG per tablet Take 1 tablet by mouth every 6 (six) hours as needed for Pain. 07/01/14 07/11/14 WANDA Jenkins No Known Allergies History Social History Marital [...] comments) Father adopted ROS Review of Systems Constitutional: Negative for: fever or weight loss EENT: Negative for: irritated eyes, Nosebleed, rhinitis, sore throat Cardiovascular/Respiratory: Negative for: cough, dyspnea, chest pain Gastrointestinal: Negative for: abdominal pain, nausea, vomiting, or diarrhea. Denies kaela tochezia, melena. Genitourinary: Negative for: hematuria or foul smelling urine Musculoskeletal: Negative for: muscle pain or joint swelling Skin: Negative for: rash or lesion Neuro and psych: Negative for: head injury or seizure Endocrine/Heme/Lymph: Negative for: swollen lymph nodes or easy bruising Patient states that he has not taken any of his HIV meds for over a month as they are in [facility]. Physical Exam Physical Exam BP 137/75 | Pulse 86 | Temp(Src) 97.1 F (36.2 C) (Oral) | Resp 16 | Wt 90.719 kg (200 l b) | SpO2 99% Borderline hypertension, otherwise normal Pulse Oximetry interpretation: Normal GEN: Alert, in mild distress secondary to pain. ENT: The TMS are neg. Bilaterally. There is no pharygeal injection, the mucous membranes are pink and moist. There is no conjunctival injection. There is no scleral icterus. There i s no nasal discharge or epistaxis. NECK: Supple, no tenderness on palpation, no cervical lymphadenopathy. No JVD CHEST: Breath sounds are equal bilaterally. There are no adventitious sounds. HRRR. No murm urs. No tenderness to palpation over the chest wall. ABD: Soft, BS present and normal. There is marked epigastric tenderness to palpation. Ther e is no rebound, guarding, or rigidity. No bruits. No palpable masses. EXTREM: No c/c/e. No joint swelling BACK: No tenderness to palpation. NEURO: Alert, oriented. SKIN: Warm and dry, no rashes ED Course Medical Decision Making and Emergency Department Course ED Department Course Patient presents in transfer with hx of abdominal pain. Review of charts show a CT with nor mal GB and mildly dilated intrahepatic ducts. Lipase and transams only mildly elevated and l ipase is only mildly elevated. Therefore will do us of gb here. Labs were done at 1400. Have also ordered the last lab requested by ID that patient never got drawn as OP. US of GB is normal. There is no CBD dilation. Review of lab CBC neutropenia CMP AP, transams all elevated in a hepatocellular pattern Lipase moderately elevated Patient presents with acute pancreatitis. There is no evidence of dilation of the CBD, no g allstones. There are no peritoneal signs. No evidence of small bowel obstruction, renal colic, pyleon ephritis, appendicitis, bowel perforation. I explained the dx to the patient, and treatment. He is better painwise after the IV pain m edication. I have discussed the case with Dr. Ng who accepts the patient for admission to the [facility] pitalist service. I reviewed the results of the diagnostic studies with the patient. Explain ed the reason for admission and the admission process. Explained the admission process and t he reason for admission. Records Reviewed Old medical records. Previous electrocardiograms. Nursing notes. See progress note for review of charts. Patient has a long hx of noncompliance with meds an d f/u. He has been dx with neurosyphilis in the past, it is unclear whether he has actually completed a course of treatment for this. Labs & Radiology Results Laboratory Evaluation Results Procedure Component Value Ref Range Date/Time Complete Metabolic Panel [[id number]] (Abnormal) Collected: 05/23/15134 Order Status: Completed Updated: 05/23/15203 Specimen Information: Blood SODIUM 140 135 - 143 mmol/L POTASSIUM 3.9 3.5 - 4.9 mmol/L CHLORIDE 108 99 - 109 mmol/L CO2 25 23 - 32 mmol/L ANION GAP AGAP 11 5 - 20 mmol/L GLUCOSE 106 (H) 65 - 99 mg/dL BUN 14 8 - 25 mg/dL CREATININE 0.89 0.70 - 1.30 mg/dL BUN/CREAT 16 CALCIUM 7.6 (L) 8.5 - 10.5 mg/dL TOTAL PROTEIN 7.5 6.3 - 8.2 g/dL Albumin 3.1 (L) 3.6 - 5.0 g/dL GLOBULIN 4.4 1.3 - 4.9 g/dL A/G 0.7 (L) 1.0 - 2.4 TBIL 1.4 0.1 - 1.5 mg/dL ALK PHOS 152 (H) 35 - 115 U/L AST 485 (H) 10 - 45 U/L ALT 339 (H) 10 - 65 U/L EGFR >60 >60 mL/min/1.73m2 Lipase [[id number]] (Abnormal) Collected: 05/23/15134 Order Status: Completed Updated: 05/23/15203 Specimen Information: Blood LIPASE 4748 (H) 73 - 393 U/L CBC w Auto Diff [[id number]] (Abnormal) Collected: 05/23/15134 Order Status: Completed Updated: 05/23/15202 Specimen Information: Blood WBC 4.57 3.80 - 11.00 K/uL RBC 4.94 4.20 - 5.70 M/uL HGB 14.0 13.2 - 17.0 g/dL HCT 42.5 39.0 - 50.0 % MCV 86.1 80.0 - 100.0 fl MCH 28.4 27.0 - 34.0 pg MCHC 33.0 32.0 - 35.5 g/dL RDW SD 41.6 37 - 53 fl PLT 163 150 - 400 K/uL MPV 8.8 fl DIFF TYPE MANUAL Neutrophils Manual 37 % Bands 3 % Lymphocytes Manual 41 % REACTIVE LYMPHS 13 % Monocytes Manual 1 % Eosinophils Manual 4 % Basophils Manual 1 % Neutrophils Absolute 1.69 (L) 1.90 - 7.40 K/uL Bands Manual 0.14 0.00 - 0.20 K/uL Lymphocytes Absolute 1.87 1.00 - 3.90 K/uL REACTIVE LYMPHS ABS 0.59 K/uL Monocytes Absolute 0.05 0.00 - 0.80 K/uL Eosinophils Absolute 0.18 0.00 - 0.50 K/uL Basophils Absolute 0.05 0.00 - 0.10 K/uL Platelet Estimate ADEQUATE MORPHOLOGY RBC AND PLT MORPHOLOGY APPEAR NORMAL RPR Titer [[id number]] Collected: 05/22/15102 Order Status: Sent Updated: 05/23/15112 Specimen Information: Blood HIV1 US viral load P [[id number]] Collected: 05/22/15102 Order Status: Sent Updated: 05/23/15112 T-helper cells (CD4) count [[id number]] Collected: 05/22/15102 Order Status: Sent Updated: 05/23/15112 Specimen Information: Blood Radiology and EKG Evaluation Imaging Results US Abdomen, Gallbladder (Final result) Result time: 05/23/15 01:03:20 Preliminary result by Rad Results In Melquiades (05/23/15 01:03:20) Impression: 1. Liver is slightly enlarged and shows no focal nodules. Appropriate portal venous flow. N ormal gallbladder. No stones. RADIA Read by Kaiser Perez MD on May 23 2015 1:03AM Final result by Rad Results In Melquiades (05/23/15 01:03:15) Impression: 1. Liver is slightly enlarged and shows no focal nodules. Appropriate portal venous flow. N ormal gallbladder. No stones. RADIA Electronically signed by Kaiser Perez MD on May 23 2015 1:03AM Referring Provider Line: [phone] ID: [id number] Narrative: EXAM: ABDOMEN ULTRASOUND LIMITED, RUQ EXAM DATE: 05/23/2015 12:28 AM. CLINICAL HISTORY: Abdominal pain. COMPARISON: 08/19/2013. TECHNIQUE: Real-time scanning was performed with static images obtained. FINDINGS: Liver: Liver slightly large otherwise appears unremarkable. Liver is 18.6 cm longitudinally . Main portal vein flow: Hepatopetal. Gallbladder: Normal. No stones, wall thickening, or sonographic Card's sign. Biliary System: CBD measures 7.1 mm. No intrahepatic or extrahepatic ductal dilatation. Other: Pancreas not well seen because of gas. No free abdominal fluid. Diagnosis & Disposition ED Diagnoses Final diagnoses Acute pancreatitis, unspecified pancreatitis type HIV (human immunodeficiency virus infection) (H[facility]) Noncompliance with medication regimen Disposition: ED Disposition Admit/Observation Bed request special needs: None Diagnosis?: acute pancreatitis Follow-up Information None Discharge Medications: Current Discharge Medication List Sheila Mitchell DO 05/23/15 0313 onversion Transacti on, Provider Unknown - 05/22/2015 10:06 PM PDTFormatting of this note might be different fro m the original. ED Notes by Jackie Kurtz RN at 05/22/152205 Author: Jackie Kurtz RN Service: (none) Author Type: Registered Nurse Filed: 05/22/152205 Date of Service: 05/22/152205 Status: Signed Social Service Manager: Jackie Kurtz RN (Registered Nurse) Bed: 12 Expected date: Expected time: Means of arrival: Comments: Andrew docume nted in this encounter Miscellaneous Notes Plan of Care - Conversion Transaction, Provider Unknown - 05/27/2015 10:15 AM PDT Plan of Care by Diamond Galvin RN at 05/27/151014 Author: Diamond Galivn RN Service: (none) Author Type: Registered Nurse Filed: 05/27/155 Date of Service: 05/27/151014 Status: Signed Social Service Manager: Diamond Galvin RN (Registered Nurse) Problem: Pain Goal: Patient s pain/discomfort is manageable Assess and monitor patient s pain using appropriate pain scale. Collaborate with interdis ciplinary team and initiate plan and interventions as ordered. Re-assess patient s pain le donald approximately 1-2 hours after pain management intervention. Premedicate as needed. Outcome: Progressing Patient's pain management plan of care discussed, pain controlled, patient requests medicat ion appropriately, pain reassessments performed. Problem: Safety Goal: Patient will be injury free during hospitalization Assess and monitor vitals signs, neurological status including level of consciousness and o rientation. Assess patient s risk for falls and implement fall prevention plan of care and interventions per hospital policy. Ensure arm band on, uncluttered walking paths in room, adequate room lighting, call light a nd overbed table within reach, bed in low position, wheels locked, side rails up per policy, and non-skid footwear provided. Outcome: Progressing Safety measures maintained, room clutter free, bed in lowest position, side rails up, arm b ands on, O2/sx/AMBU at bedside, and call light in reach. lan o f Care - Conversion Transaction, Provider Unknown - 05/26/2015 12:51 PM PDTFormatting of thi s note might be different from the original. Plan of Care by Clare Martinez RN at 05/26/15 125 Author: Clare Martinez RN Service: (none) Author Type: Registered Nurse Filed: 05/26/151250 Date of Service: 05/26/151250 Status: Signed Social Service Manager: Clare Martinez RN (Registered Nurse) Daily Care Daily care needs are met Progressing Discharge Barriers Patient's discharge needs are met Progressing Pain Patient's pain/discomfort is manageable Progressing Psychosocial Needs Demonstrates ability to cope with hospitalization/illness Progressing Collaborate with patient/family/caregiver to identify patient specific goals for this h ospitalization Progressing Safety Patient will be injury free during hospitalization Progressing Rasheed Markham MD - 05/23/2015 12:46 PM PDTFormatting of this note might be differen t from the original. Treatment Plan by Rasheed Driscoll MD at 05/23/15 1246 Author: Rasheed Driscoll MD Service: (none) Author Type: Physician Filed: 05/23/15 1931 Date of Service: 05/23/151245 Status: Addendum Social Service Manager: Rasheed Driscoll MD (Physician) Related Notes: Original Note by Rasheed Driscoll MD (Physician) filed at 05/23/15 1248 Patient seen and examined. Admitted for acute pancreatitis and abnormal LFTs. History and p hysical from this morning reviewed. We will increase IV fluids and change to Ringer lactate at 150. Follow-up MRI abdomen to ru le out obstruction seems less likely due to normal bilirubin. If negative, will start on jonathon ar liquid diets. Patient was supposed to see dr. Dukes for his HIV. Discussed with him briefly. At this point . HIV meds as patient has abnormal LFTs. We'll send for CD4, viral load, genotype and have her follow-up with Dr. Dukes in the clinic. documented in this encou nter Plan of Treatment Not on filedocumented as of this encounter Procedures + +--------+ + + + | Procedure Name | Priori | Date/Time | Associated Diagnosis | Comments | | | ty | | | | + +--------+ + + + | EXTERNAL LAB: CBC | Routin | 05/27/2015 | | Results for this | | | e | 5:17 AM | | procedure are in the | | | | PDT | | results section. | + +--------+ + + + | PHOSPHORUS | Routin | 05/27/2015 | | Results for this | | | e | 5:17 AM | | procedure are in the | | | | PDT | | results section. | + +--------+ + + + | MAGNESIUM | Routin | 05/27/2015 | | Results for this | | | e | 5:17 AM | | procedure are in the | | | | PDT | | results section. | + +--------+ + + + | LIPASE | Routin | 05/27/2015 | | Results for this | | | e | 5:17 AM | | procedure are in the | | | | PDT | | results section. | + +--------+ + + + | COMPREHENSIVE | Routin | 05/27/2015 | | Results for this | | METABOLIC PANEL | e | 5:17 AM | | procedure are in the | | | | PDT | | results section. | + +--------+ + + + | EXTERNAL LAB: CBC | Routin | 05/26/2015 | | Results for this | | | e | 3:44 AM | | procedure are in the | | | | PDT | | results section. | + +--------+ + + + | PHOSPHORUS | Routin | 05/26/2015 | | Results for this | | | e | 3:44 AM | | procedure are in the | | | | PDT | | results section. | + +--------+ + + + | MAGNESIUM | Routin | 05/26/2015 | | Results for this | | | e | 3:44 AM | | procedure are in the | | | | PDT | | results section. | + +--------+ + + + | LIPASE | Routin | 05/26/2015 | | Results for this | | | e | 3:44 AM | | procedure are in the | | | | PDT | | results section. | + +--------+ + + + | COMPREHENSIVE | Routin | 05/26/2015 | | Results for this | | METABOLIC PANEL | e | 3:44 AM | | procedure are in the | | | | PDT | | results section. | + +--------+ + + + | EXTERNAL LAB: CBC | Routin | 05/25/2015 | | Results for this | | | e | 5:39 AM | | procedure are in the | | | | PDT | | results section. | + +--------+ + + + | PHOSPHORUS | Routin | 05/25/2015 | | Results for this | | | e | 5:39 AM | | procedure are in the | | | | PDT | | results section. | + +--------+ + + + | MAGNESIUM | Routin | 05/25/2015 | | Results for this | | | e | 5:39 AM | | procedure are in the | | | | PDT | | results section. | + +--------+ + + + | LIPASE | Routin | 05/25/2015 | | Results for this | | | e | 5:39 AM | | procedure are in the | | | | PDT | | results section. | + +--------+ + + + | COMPREHENSIVE | Routin | 05/25/2015 | | Results for this | | METABOLIC PANEL | e | 5:39 AM | | procedure are in the | | | | PDT | | results section. | + +--------+ + + + | FL ERCP BILIARY AND | Routin | 05/24/2015 | | Results for this | | PANCREATIC | e | 9:46 PM | | procedure are in the | | | | PDT | | results section. | + +--------+ + + + | POTASSIUM | Routin | 05/24/2015 | | Results for this | | | e | 11:18 AM | | procedure are in the | | | | PDT | | results section. | + +--------+ + + + | MAGNESIUM | Routin | 05/24/2015 | | Results for this | | | e | 11:18 AM | | procedure are in the | | | | PDT | | results section. | + +--------+ + + + | EXTERNAL LAB: CBC | Routin | 05/24/2015 | | Results for this | | | e | 5:30 AM | | procedure are in the | | | | PDT | | results section. | + +--------+ + + + | PHOSPHORUS | Routin | 05/24/2015 | | Results for this | | | e | 5:30 AM | | procedure are in the | | | | PDT | | results section. | + +--------+ + + + | MAGNESIUM | Routin | 05/24/2015 | | Results for this | | | e | 5:30 AM | | procedure are in the | | | | PDT | | results section. | + +--------+ + + + | LIPASE | Routin | 05/24/2015 | | Results for this | | | e | 5:30 AM | | procedure are in the | | | | PDT | | results section. | + +--------+ + + + | COMPREHENSIVE | Routin | 05/24/2015 | | Results for this | | METABOLIC PANEL | e | 5:30 AM | | procedure are in the | | | | PDT | | results section. | + +--------+ + + + | TROPONIN I | Routin | 05/23/2015 | | Results for this | | | e | 6:00 PM | | procedure are in the | | | | PDT | | results section. | + +--------+ + + + | CK-MB | Routin | 05/23/2015 | | Results for this | | | e | 6:00 PM | | procedure are in the | | | | PDT | | results section. | + +--------+ + + + | CK TOTAL | Routin | 05/23/2015 | | Results for this | | | e | 6:00 PM | | procedure are in the | | | | PDT | | results section. | + +--------+ + + + | TROPONIN I | Routin | 05/23/2015 | | Results for this | | | e | 11:58 AM | | procedure are in the | | | | PDT | | results section. | + +--------+ + + + | CK-MB | Routin | 05/23/2015 | | Results for this | | | e | 11:58 AM | | procedure are in the | | | | PDT | | results section. | + +--------+ + + + | CK TOTAL | Routin | 05/23/2015 | | Results for this | | | e | 11:58 AM | | procedure are in the | | | | PDT | | results section. | + +--------+ + + + | MRI ABDOMEN WO | Routin | 05/23/2015 | | Results for this | | CONTRAST MRCP | e | 11:33 AM | | procedure are in the | | | | PDT | | results section. | + +--------+ + + + | POTASSIUM | Routin | 05/23/2015 | | Results for this | | | e | 10:01 AM | | procedure are in the | | | | PDT | | results section. | + +--------+ + + + | MAGNESIUM | Routin | 05/23/2015 | | Results for this | | | e | 10:01 AM | | procedure are in the | | | | PDT | | results section. | + +--------+ + + + | CULTURE, URINE | Timed | 05/23/2015 | | Results for this | | | | 9:18 AM | | procedure are in the | | | | PDT | | results section. | + +--------+ + + + | URINALYSIS WITH | Routin | 05/23/2015 | | Results for this | | MICROSCOPIC IF | e | 9:17 AM | | procedure are in the | | INDICATED | | PDT | | results section. | + +--------+ + + + | CULTURE, BLOOD, 2ND | Timed | 05/23/2015 | | Results for this | | SPECIMEN (NON-ORD) | | 3:35 AM | | procedure are in the | | | | PDT | | results section. | + +--------+ + + + | EXTERNAL LAB: CBC | Routin | 05/23/2015 | | Results for this | | | e | 3:19 AM | | procedure are in the | | | | PDT | | results section. | + +--------+ + + + | LIPID PANEL | Routin | 05/23/2015 | | Results for this | | | e | 3:19 AM | | procedure are in the | | | | PDT | | results section. | + +--------+ + + + | TROPONIN I | Routin | 05/23/2015 | | Results for this | | | e | 3:19 AM | | procedure are in the | | | | PDT | | results section. | + +--------+ + + + | CK-MB | Routin | 05/23/2015 | | Results for this | | | e | 3:19 AM | | procedure are in the | | | | PDT | | results section. | + +--------+ + + + | CULTURE, BLOOD | Timed | 05/23/2015 | | Results for this | | | | 3:19 AM | | procedure are in the | | | | PDT | | results section. | + +--------+ + + + | PTT | Routin | 05/23/2015 | | Results for this | | | e | 3:19 AM | | procedure are in the | | | | PDT | | results section. | + +--------+ + + + | PROTIME INR | Routin | 05/23/2015 | | Results for this | | | e | 3:19 AM | | procedure are in the | | | | PDT | | results section. | + +--------+ + + + | PHOSPHORUS | Routin | 05/23/2015 | | Results for this | | | e | 3:19 AM | | procedure are in the | | | | PDT | | results section. | + +--------+ + + + | MAGNESIUM | Routin | 05/23/2015 | | Results for this | | | e | 3:19 AM | | procedure are in the | | | | PDT | | results section. | + +--------+ + + + | LIPASE | Routin | 05/23/2015 | | Results for this | | | e | 3:19 AM | | procedure are in the | | | | PDT | | results section. | + +--------+ + + + | HEMOGLOBIN A1C | Routin | 05/23/2015 | | Results for this | | | e | 3:19 AM | | procedure are in the | | | | PDT | | results section. | + +--------+ + + + | CK TOTAL | Routin | 05/23/2015 | | Results for this | | | e | 3:19 AM | | procedure are in the | | | | PDT | | results section. | + +--------+ + + + | BILIRUBIN, DIRECT | Routin | 05/23/2015 | | Results for this | | | e | 3:19 AM | | procedure are in the | | | | PDT | | results section. | + +--------+ + + + | AMYLASE | Routin | 05/23/2015 | | Results for this | | | e | 3:19 AM | | procedure are in the | | | | PDT | | results section. | + +--------+ + + + | COMPREHENSIVE | Routin | 05/23/2015 | | Results for this | | METABOLIC PANEL | e | 3:19 AM | | procedure are in the | | | | PDT | | results section. | + +--------+ + + + | EXTERNAL LAB: CBC | Routin | 05/23/2015 | | Results for this | | | e | 1:35 AM | | procedure are in the | | | | PDT | | results section. | + +--------+ + + + | LIPASE | Routin | 05/23/2015 | | Results for this | | | e | 1:35 AM | | procedure are in the | | | | PDT | | results section. | + +--------+ + + + | COMPREHENSIVE | Routin | 05/23/2015 | | Results for this | | METABOLIC PANEL | e | 1:35 AM | | procedure are in the | | | | PDT | | results section. | + +--------+ + + + | US ABDOMEN LIMITED | Routin | 05/23/2015 | | Results for this | | | e | 12:28 AM | | procedure are in the | | | | PDT | | results section. | + +--------+ + + + | ECG 12 LEAD | Routin | 05/22/2015 | | Results for this | | | e | 10:12 PM | | procedure are in the | | | | PDT | | results section. | + +--------+ + + + | XR CHEST 2 VIEWS | Routin | 05/22/2015 | | Results for this | | | e | 1:25 AM | | procedure are in the | | | | PDT | | results section. | + +--------+ + + + | CT ABDOMEN PELVIS W | Routin | 05/22/2015 | | Results for this | | CONTRAST | e | 1:25 AM | | procedure are in the | | | | PDT | | results section. | + +--------+ + + + | RAPID PLASMA REAGIN, | Routin | 05/22/2015 | | Results for this | | QUANT | e | 1:03 AM | | procedure are in the | | | | PDT | | results section. | + +--------+ + + + | MISC LAB REFERRAL | Routin | 05/22/2015 | | Results for this | | | e | 1:03 AM | | procedure are in the | | | | PDT | | results section. | + +--------+ + + + | HIV RNA, | Routin | 05/22/2015 | | Results for this | | QUANTITATIVE, PCR | e | 1:03 AM | | procedure are in the | | | | PDT | | results section. | + +--------+ + + + | CD4 T CELL PANEL | Routin | 05/22/2015 | | Results for this | | | e | 1:03 AM | | procedure are in the | | | | PDT | | results section. | + +--------+ + + + documented in this encounter Results External Lab: CBC (05/27/2015 5:17 AM PDT) + + + + + + | Component | Value | Ref Range | Performed | Pathologist | | | | | At | Signature | + + + + + + | WBC | 5.49Comment: Testing | 3.80 - 11.00 | EXTERNAL | | | | performed at [facility], [address] | K[address] | LAB | | | | [address], | | | | | | [place] [address] | | | | + + + + + + | Non- | 4.59Comment: Testing | 4.20 - 5.70 | EXTERNAL | | | Red Blood | performed at [facility], [address] | M/uL | LAB | | | Cells | [address], | | | | | Counted | [place] [address] | | | | + + + + + + | Hemoglobin | 13.0 (L)Comment: Testing | 13.2 - 17.0 | EXTERNAL | | | | performed at [facility], [address] | g/dL | LAB | | | | [address], | | | | | | [place] [address] | | | | + + + + + + | Hematocrit, | 39.2Comment: Testing | 39.0 - 50.0 % | EXTERNAL | | | POC | performed at [facility], [address] | | LAB | | | | [address], | | | | | | [place] [address] | | | | + + + + + + | MCV | 85.4Comment: Testing | 80.0 - 100.0 fl | EXTERNAL | | | | performed at [facility], [address] | | LAB | | | | [address], | | | | | | [place] [address] | | | | + + + + + + | MCH | 28.2Comment: Testing | 27.0 - 34.0 pg | EXTERNAL | | | | performed at [facility], [address] | | LAB | | | | [address], | | | | | | [place] [address] | | | | + + + + + + | MCHC | 33.1Comment: Testing | 32.0 - 35.5 | EXTERNAL | | | | performed at [facility], [address] | g/dL | LAB | | | | [address], | | | | | | [place] [address] | | | | + + + + + + | RDW-CV | 42.4Comment: Testing | 37 - 53 fl | EXTERNAL | | | | performed at [facility], [address] | | LAB | | | | [address], | | | | | | [place] [address] | | | | + + + + + + | Platelet | 170Comment: Testing | 150 - 400 K/uL | EXTERNAL | | | Count | performed at [facility], [address] | | LAB | | | Plasma | [address], | | | | | | [place] [address] | | | | + + + + + + | MPV | 9.2Comment: Testing | fl | EXTERNAL | | | | performed at [facility], [address] | | LAB | | | | [address], | | | | | | [place] [address] | | | | + + + + + + | Differentia | AUTOMATEDComment: | | EXTERNAL | | | l Type | Testing performed at | | LAB | | | | [facility], [address] | | | | | | [place] | | | | | | [address] | | | | + + + + + + | % Segmented | 54.39Comment: Testing | % | EXTERNAL | | | | performed at [facility], [address] | | LAB | | | Neutrophils | [address], | | | | | | [place] [address] | | | | + + + + + + | % | 34.75Comment: Testing | % | EXTERNAL | | | Lymphocytes | performed at [facility], [address] | | LAB | | | | [address] [place], | | | | | | [place] [address] | | | | + + + + + + | % Monocytes | 9.57Comment: Testing | % | EXTERNAL | | | | performed at [facility], [address] | | LAB | | | | [address], | | | | | | [place] [address] | | | | + + + + + + | % | 1.04Comment: Testing | % | EXTERNAL | | | Eosinophils | performed at [facility], [address] | | LAB | | | | [address], | | | | | | [place] [address] | | | | + + + + + + | % Basophils | 0.25Comment: Testing | % | EXTERNAL | | | | performed at [facility], [address] | | LAB | | | | [address], | | | | | | [place] [address] | | | | + + + + + + | Absolute | 2.98Comment: Testing | 1.90 - 7.40 | EXTERNAL | | | Segmented | performed at [facility], [address] | K/uL | LAB | | | Neutrophils | [address], | | | | | | [place] [address] | | | | + + + + + + | Absolute | 1.91Comment: Testing | 1.00 - 3.90 | EXTERNAL | | | Lymphocytes | performed at [facility], [address] | K/uL | LAB | | | | [address] [place], | | | | | | [place] [address] | | | | + + + + + + | Absolute | 0.53Comment: Testing | 0.00 - 0.80 | EXTERNAL | | | Monocytes | performed at [facility], [address] | K/uL | LAB | | | | [address], | | | | | | [place] [address] | | | | + + + + + + | Absolute | 0.06Comment: Testing | 0.00 - 0.50 | EXTERNAL | | | Eosinophils | performed at [facility], [address] | K/uL | LAB | | | | [address], | | | | | | [place] [address] | | | | + + + + + + | Absolute | 0.01Comment: Testing | 0.00 - 0.10 | EXTERNAL | | | Basophils | performed at [facility], [address] | K/uL | LAB | | | | [address], | | | | | | [place] [address] | | | | + + + + + + + + | Specimen | + + | Blood specimen | | (specimen) | + + + +---------+ + + | Performing | Address | City/State/Zipcode | Phone Number | | Organization | | | | + +---------+ + + | EXTERNAL LAB | | | | + +---------+ + + Phosphorus (05/27/2015 5:17 AM PDT) + + + + + + | Component | Value | Ref Range | Performed | Pathologist | | | | | At | Signature | + + + + + + | PHOSPHORUS | 3.7Comment: Testing | 2.3 - 4.8 mg/dL | EXTERNAL | | | | performed at [facility], [address] | | LAB | | | | [address] [place], | | | | | | [place] [address] | | | | + + + + + + + + | Specimen | + + | Blood specimen | | (specimen) | + + + +---------+ + + | Performing | Address | City/State/Zipcode | Phone Number | | Organization | | | | + +---------+ + + | EXTERNAL LAB | | | | + +---------+ + + Magnesium (05/27/2015 5:17 AM PDT) + + + + + + | Component | Value | Ref Range | Performed | Pathologist | | | | | At | Signature | + + + + + + | Magnesium | 1.9Comment: Testing | 1.7 - 2.4 mg/dL | EXTERNAL | | | | performed at [facility], [address] | | LAB | | | | [address] [place], | | | | | | [place] [address] | | | | + + + + + + + + | Specimen | + + | Blood specimen | | (specimen) | + + + +---------+ + + | Performing | Address | City/State/Zipcode | Phone Number | | Organization | | | | + +---------+ + + | EXTERNAL LAB | | | | + +---------+ + + Lipase (05/27/2015 5:17 AM PDT) + + + + + + | Component | Value | Ref Range | Performed | Pathologist | | | | | At | Signature | + + + + + + | Lipase | 280Comment: Testing | 73 - 393 U/L | EXTERNAL | | | | performed at [facility];[address] | | LAB | | | | [facility];[place] | | | | | | [address] | | | | + + + [...] + +---------+ + + Comprehensive Metabolic Panel (05/27/2015 5:17 AM PDT) + + + + + + | Component | Value | Ref Range | Performed | Pathologist | | | | | At | Signature | + + + + + + | Na | 131 (L)Comment: Testing | 135 - 143 | EXTERNAL | | | | performed at [facility], [address] | mmol/L | LAB | | | | [address], | | | | | | [place] [address] | | | | + + + + + + | K | 3.4 (L)Comment: Testing | 3.5 - 4.9 | EXTERNAL | | | | performed at [facility], [address] | mmol/L | LAB | | | | [address], | | | | | | [place] [address] | | | | + + + + + + | Cl | 101Comment: Testing | 99 - 109 mmol/L | EXTERNAL | | | | performed at [facility], [address] | | LAB | | | | [address], | | | | | | [place] [address] | | | | + + + + + + | CO2 | 26Comment: Testing | 23 - 32 mmol/L | EXTERNAL | | | | performed at [facility], [address] | | LAB | | | | [address], | | | | | | [place] [address] | | | | + + + + + + | Anion Gap | 7Comment: Testing | 5 - 20 mmol/L | EXTERNAL | | | | performed at [facility], [address] | | LAB | | | [address], | | | | | | [place] [address] | | | | + + + + + + | Glucose, | 118 (H)Comment: Testing | 65 - 99 mg/dL | EXTERNAL | | | Fasting | performed at [facility], [address] | | LAB | | | | [address], | | | | | | [place] [address] | | | | + + + + + + | BUN | 7 (L)Comment: Testing | 8 - 25 mg/dL | EXTERNAL | | | | performed at [facility], [address] | | LAB | | | | [address], | | | | | | [place] [address] | | | | + + + + + + | Creatinine | 0.65 (L)Comment: Testing | 0.70 - 1.30 | EXTERNAL | | | | performed at [facility], [address] | mg/dL | LAB | | | | [address], | | | | | | [place] [address] | | | | + + + + + + | BUN/Creatin | 11Comment: Testing | | EXTERNAL | | | ine Ratio | performed at [facility], [address] | | LAB | | | | [address], | | | | | | [place] [address] | | | | + + + + + + | Calcium | 8.3 (L)Comment: Testing | 8.5 - 10.5 | EXTERNAL | | | | performed at [facility], [address] | mg/dL | LAB | | | | [address], | | | | | | [place] [address] | | | | + + + + + + | Protein, | 6.9Comment: Testing | 6.3 - 8.2 g/dL | EXTERNAL | | | Total | performed at [facility], [address] | | LAB | | | | [address], | | | | | | [place] [address] | | | | + + + + + + | Albumin | 3.4 (L)Comment: Testing | 3.6 - 5.0 g/dL | EXTERNAL | | | | performed at [facility], [address] | | LAB | | | | [address], | | | | | | [place] [address] | | | | + + + + + + | Globulin | 3.5Comment: Testing | 1.3 - 4.9 g/dL | EXTERNAL | | | | performed at [facility], [address] | | LAB | | | | [address], | | | | | | [place] [address] | | | | + + + + + + | A/G Ratio | 1.0Comment: Testing | 1.0 - 2.4 | EXTERNAL | | | | performed at [facility], [address] | | LAB | | | [address], | | | | | | [place] [address] | | | | + + + + + + | Bilirubin | 1.0Comment: Testing | 0.1 - 1.5 mg/dL | EXTERNAL | | | Total | performed at [facility], [address] | | LAB | | | | [address], | | | | | | [place] [address] | | | | + + + + + + | ALP, | 203 (H)Comment: Testing | 35 - 115 U/L | EXTERNAL | | | External | performed at [facility], [address] | | LAB | | | | [address], | | | | | | [place] [address] | | | | + + + + + + | AST | 74 (H)Comment: Testing | 10 - 45 U/L | EXTERNAL | | | | performed at [facility], [address] | | LAB | | | | [address] [place], | | | | | | [place] [address] | | | | + + + + + + | ALT | 135 (H)Comment: Testing | 10 - 65 U/L | EXTERNAL | | | | performed at [facility], [address] | | LAB | | | | [address], | | | | | | [place] [address] | | | | + + + [...] | | | | | | at [facility], [address] | | | | | | [address], | | | | | | [place] [address] | | | | + + + [...] + +---------+ + + External Lab: CBC (05/26/2015 3:44 AM PDT) + + + + + + | Component | Value | Ref Range | Performed | Pathologist | | | | | At | Signature | + + + + + + | WBC | 3.41 (L)Comment: Testing | 3.80 - 11.00 | EXTERNAL | | | | performed at [facility], [address] | [address] | LAB | | | | [address] [facility] [place], | | | | | | [place] [address] | | | | + + + + + + | Non- | 4.54Comment: Testing | 4.20 - 5.70 | EXTERNAL | | | Red Blood | performed at [facility], [address] | M/uL | LAB | | | Cells | [address], | | | | | Counted | [place] [address] | | | | + + + + + + | Hemoglobin | 13.0 (L)Comment: Testing | 13.2 - 17.0 | EXTERNAL | | | | performed at [facility], [address] | g/dL | LAB | | | | [address], | | | | | | [place] [address] | | | | + + + + + + | Hematocrit, | 38.5 (L)Comment: Testing | 39.0 - 50.0 % | EXTERNAL | | | POC | performed at [facility], [address] | | LAB | | | | [address], | | | | | | [place] [address] | | | | + + + + + + | MCV | 84.8Comment: Testing | 80.0 - 100.0 fl | EXTERNAL | | | | performed at [facility], [address] | | LAB | | | | [address], | | | | | | [place] [address] | | | | + + + + + + | MCH | 28.5Comment: Testing | 27.0 - 34.0 pg | EXTERNAL | | | | performed at [facility], [address] | | LAB | | | | [address], | | | | | | [place] [address] | | | | + + + + + + | MCHC | 33.6Comment: Testing | 32.0 - 35.5 | EXTERNAL | | | | performed at [facility], [address] | g/dL | LAB | | | | [address], | | | | | | [place] [address] | | | | + + + + + + | RDW-CV | 42.0Comment: Testing | 37 - 53 fl | EXTERNAL | | | | performed at [facility], [address] | | LAB | | | | [address], | | | | | | [place] [address] | | | | + + + + + + | Platelet | 148 (L)Comment: Testing | 150 - 400 K/uL | EXTERNAL | | | Count | performed at [facility], [address] | | LAB | | | Plasma | [address], | | | | | | [place] [address] | | | | + + + + + + | MPV | 9.4Comment: Testing | fl | EXTERNAL | | | | performed at [facility], [address] | | LAB | | | | [address] [place], | | | | | | [place] [address] | | | | + + + + + + | Differentia | AUTOMATEDComment: | | EXTERNAL | | | l Type | Testing performed at | | LAB | | | | [facility], [address] | | | | | | [place] | | | | | | [address] | | | | + + + + + + | % Segmented | 44.31Comment: Testing | % | EXTERNAL | | | | performed at [facility], [address] | | LAB | | | Neutrophils | [address], | | | | | | [place] [address] | | | | + + + + + + | % | 44.25Comment: Testing | % | EXTERNAL | | | Lymphocytes | performed at [facility], [address] | | LAB | | | | [address], | | | | | | [place] [address] | | | | + + + + + + | % Monocytes | 8.51Comment: Testing | % | EXTERNAL | | | | performed at [facility], [address] | | LAB | | | | [address], | | | | | | [place] [address] | | | | + + + + + + | % | 2.14Comment: Testing | % | EXTERNAL | | | Eosinophils | performed at [facility], [address] | | LAB | | | | [address], | | | | | | [place] [address] | | | | + + + + + + | % Basophils | 0.79Comment: Testing | % | EXTERNAL | | | | performed at [facility], [address] | | LAB | | | | [address], | | | | | | [place] [address] | | | | + + + + + + | Absolute | 1.51 (L)Comment: Testing | 1.90 - 7.40 | EXTERNAL | | | Segmented | performed at [facility], [address] | [address] | LAB | | | Neutrophils | [address], | | | | | | [place] [address] | | | | + + + + + + | Absolute | 1.51Comment: Testing | 1.00 - 3.90 | EXTERNAL | | | Lymphocytes | performed at [facility], [address] | K/uL | LAB | | | | [address], | | | | | | [place] [address] | | | | + + + + + + | Absolute | 0.29Comment: Testing | 0.00 - 0.80 | EXTERNAL | | | Monocytes | performed at [facility], [address] | K/uL | LAB | | | | [address], | | | | | | [place], [place] [address] | | | | + + + + + + | Absolute | 0.07Comment: Testing | 0.00 - 0.50 | EXTERNAL | | | Eosinophils | performed at [facility], [address] | K/uL | LAB | | | | [address], | | | | | | [place] [address] | | | | + + + + + + | Absolute | 0.03Comment: Testing | 0.00 - 0.10 | EXTERNAL | | | Basophils | performed at [facility], [address] | K/uL | LAB | | | | [address], | | | | | | [place] [address] | | | | + + + + + + + + | Specimen | + + | Blood specimen | | (specimen) | + + + +---------+ + + | Performing | Address | City/State/Zipcode | Phone Number | | Organization | | | | + +---------+ + + | EXTERNAL LAB | | | | + +---------+ + + Phosphorus (05/26/2015 3:44 AM PDT) + + + + + + | Component | Value | Ref Range | Performed | Pathologist | | | | | At | Signature | + + + + + + | PHOSPHORUS | 3.0Comment: Testing | 2.3 - 4.8 mg/dL | EXTERNAL | | | | performed at [facility], [address] | | LAB | | | | [address], | | | | | | [place] [address] | | | | + + + + + + + + | Specimen | + + | Blood specimen | | (specimen) | + + + +---------+ + + | Performing | Address | City/State/Zipcode | Phone Number | | Organization | | | | + +---------+ + + | EXTERNAL LAB | | | | + +---------+ + + Magnesium (05/26/2015 3:44 AM PDT) + + + + + + | Component | Value | Ref Range | Performed | Pathologist | | | | | At | Signature | + + + + + + | Magnesium | 1.6 (L)Comment: Testing | 1.7 - 2.4 mg/dL | EXTERNAL | | | | performed at [facility], [address] | | LAB | | | | [address], | | | | | | [place] [address] | | | | + + + + + + + + | Specimen | + + | Blood specimen | | (specimen) | + + + +---------+ + + | Performing | Address | City/State/Zipcode | Phone Number | | Organization | | | | + +---------+ + + | EXTERNAL LAB | | | | + +---------+ + + Lipase (05/26/2015 3:44 AM PDT) + + + + + + | Component | Value | Ref Range | Performed | Pathologist | | | | | At | Signature | + + + + + + | Lipase | 980 (H)Comment: Testing | 73 - 393 U/L | EXTERNAL | | | | performed at [facility];[address] | | LAB | | | | [address];[place], [place] | | | | | | [address] | | | | + + + [...] + +---------+ + + Comprehensive Metabolic Panel (05/26/2015 3:44 AM PDT) + + + + + + | Component | Value | Ref Range | Performed | Pathologist | | | | | At | Signature | + + + + + + | Na | 129 (L)Comment: Testing | 135 - 143 | EXTERNAL | | | | performed at [facility], [address] | mmol/L | LAB | | | | [address], | | | | | | [place] [address] | | | | + + + + + + | K | 3.5Comment: Testing | 3.5 - 4.9 | EXTERNAL | | | | performed at [facility], [address] | mmol/L | LAB | | | | [address], | | | | | | [place] [address] | | | | + + + + + + | Cl | 99Comment: Testing | 99 - 109 mmol/L | EXTERNAL | | | | performed at [facility], [address] | | LAB | | | | [address], | | | | | | [place] [address] | | | | + + + + + + | CO2 | 25Comment: Testing | 23 - 32 mmol/L | EXTERNAL | | | | performed at [facility], [address] | | LAB | | | | [address], | | | | | | [place] [address] | | | | + + + + + + | Anion Gap | 9Comment: Testing | 5 - 20 mmol/L | EXTERNAL | | | | performed at [facility], [address] | | LAB | | | | [address], | | | | | | [place] [address] | | | | + + + + + + | Glucose, | 146 (H)Comment: Testing | 65 - 99 mg/dL | EXTERNAL | | | Fasting | performed at [facility], [address] | | LAB | | | | [address], | | | | | | [place] [address] | | | | + + + + + + | BUN | 12Comment: Testing | 8 - 25 mg/dL | EXTERNAL | | | | performed at [facility], [address] | | LAB | | | | [address], | | | | | | [place] [address] | | | | + + + + + + | Creatinine | 0.70Comment: Testing | 0.70 - 1.30 | EXTERNAL | | | | performed at [facility], [address] | mg/dL | LAB | | | | [address], | | | | | | [place] [address] | | | | + + + + + + | BUN/Creatin | 17Comment: Testing | | EXTERNAL | | | ine Ratio | performed at [facility], [address] | | LAB | | | | [address], | | | | | | [place] [address] | | | | + + + + + + | Calcium | 8.7Comment: Testing | 8.5 - 10.5 | EXTERNAL | | | | performed at [facility], [address] | mg/dL | LAB | | | | [address], | | | | | | [place] [address] | | | | + + + + + + | Protein, | 6.6Comment: Testing | 6.3 - 8.2 g/dL | EXTERNAL | | | Total | performed at [facility], [address] | | LAB | | | | [address], | | | | | | [place] [address] | | | | + + + + + + | Albumin | 3.4 (L)Comment: Testing | 3.6 - 5.0 g/dL | EXTERNAL | | | | performed at [facility], [address] | | LAB | | | | [address], | | | | | | [place] [address] | | | | + + + + + + | Globulin | 3.2Comment: Testing | 1.3 - 4.9 g/dL | EXTERNAL | | | | performed at [facility], [address] | | LAB | | | | [address], | | | | | | [place] [address] | | | | + + + + + + | A/G Ratio | 1.1Comment: Testing | 1.0 - 2.4 | EXTERNAL | | | | performed at [facility], [address] | | LAB | | | | [address], | | | | | | [place] [address] | | | | + + + + + + | Bilirubin | 3.4 (H)Comment: Testing | 0.1 - 1.5 mg/dL | EXTERNAL | | | Total | performed at [facility], [address] | | LAB | | | | [address], | | | | | | [place] [address] | | | | + + + + + + | ALP, | 204 (H)Comment: Testing | 35 - 115 U/L | EXTERNAL | | | External | performed at [facility], [address] | | LAB | | | | [address], | | | | | | [place] [address] | | | | + + + + + + | AST | 156 (H)Comment: Testing | 10 - 45 U/L | EXTERNAL | | | | performed at [facility], [address] | | LAB | | | | [address], | | | | | | [place] [address] | | | | + + + + + + | ALT | 180 (H)Comment: Testing | 10 - 65 U/L | EXTERNAL | | | | performed at [facility], [address] | | LAB | | | | [address], | | | | | | [place] [address] | | | | + + + [...] | | | | | | at [facility], [address] | | | | | | [address], | | | | | | [place] [address] | | | | + + + [...] + +---------+ + + External Lab: CBC (05/25/2015 5:39 AM PDT) + + + + + + | Component | Value | Ref Range | Performed | Pathologist | | | | | At | Signature | + + + + + + | WBC | 4.02Comment: Testing | 3.80 - 11.00 | EXTERNAL | | | | performed at [facility], [address] | K/uL | LAB | | | | [address], | | | | | | [place] [address] | | | | + + + + + + | Non- | 4.77Comment: Testing | 4.20 - 5.70 | EXTERNAL | | | Red Blood | performed at [facility], [address] | M/uL | LAB | | | Cells | [address], | | | | | Counted | [place] [address] | | | | + + + + + + | Hemoglobin | 13.4Comment: Testing | 13.2 - 17.0 | EXTERNAL | | | | performed at [facility], [address] | g/dL | LAB | | | | [address], | | | | | | [place] [address] | | | | + + + + + + | Hematocrit, | 40.3Comment: Testing | 39.0 - 50.0 % | EXTERNAL | | | POC | performed at [facility], [address] | | LAB | | | | [address], | | | | | | [place] [address] | | | | + + + + + + | MCV | 84.4Comment: Testing | 80.0 - 100.0 fl | EXTERNAL | | | | performed at [facility], [address] | | LAB | | | | [address], | | | | | | [place] [address] | | | | + + + + + + | MCH | 28.1Comment: Testing | 27.0 - 34.0 pg | EXTERNAL | | | | performed at [facility], [address] | | LAB | | | | [address], | | | | | | [place] [address] | | | | + + + + + + | MCHC | 33.3Comment: Testing | 32.0 - 35.5 | EXTERNAL | | | | performed at [facility], [address] | g/dL | LAB | | | | [address], | | | | | | [place] [address] | | | | + + + + + + | RDW-CV | 39.8Comment: Testing | 37 - 53 fl | EXTERNAL | | | | performed at [facility], [address] | | LAB | | | | [address], | | | | | | [place] [address] | | | | + + + + + + | Platelet | 147 (L)Comment: Testing | 150 - 400 K/uL | EXTERNAL | | | Count | performed at [facility], [address] | | LAB | | | Plasma | [address], | | | | | | [place] [address] | | | | + + + + + + | MPV | 9.1Comment: Testing | fl | EXTERNAL | | | | performed at [facility], [address] | | LAB | | | | [address], | | | | | | [place] [address] | | | | + + + + + + | Differentia | AUTOMATEDComment: | | EXTERNAL | | | l Type | Testing performed at | | LAB | | | | [facility], [address] | | | | | | [place] | | | | | | [id number] | | | | + + + + + + | % Segmented | 70.18Comment: Testing | % | EXTERNAL | | | | performed at [facility], [address] | | LAB | | | Neutrophils | [address], | | | | | | [place] [address] | | | | + + + + + + | % | 26.04Comment: Testing | % | EXTERNAL | | | Lymphocytes | performed at [facility], [address] | | LAB | | | | [address], | | | | | | [place] [address] | | | | + + + + + + | % Monocytes | 3.36Comment: Testing | % | EXTERNAL | | | | performed at [facility], [address] | | LAB | | | | [address], | | | | | | [place] [address] | | | | + + + + + + | % | 0.08Comment: Testing | % | EXTERNAL | | | Eosinophils | performed at [facility], [address] | | LAB | | | | [address], | | | | | | [place] [address] | | | | + + + + + + | % Basophils | 0.34Comment: Testing | % | EXTERNAL | | | | performed at [facility], [address] | | LAB | | | | [address], | | | | | | [place] [address] | | | | + + + + + + | Absolute | 2.82Comment: Testing | 1.90 - 7.40 | EXTERNAL | | | Segmented | performed at [facility], [address] | K/uL | LAB | | | Neutrophils | [address], | | | | | | [place] [address] | | | | + + + + + + | Absolute | 1.05Comment: Testing | 1.00 - 3.90 | EXTERNAL | | | Lymphocytes | performed at [facility], [address] | K/uL | LAB | | | | [address], | | | | | | [place] [address] | | | | + + + + + + | Absolute | 0.14Comment: Testing | 0.00 - 0.80 | EXTERNAL | | | Monocytes | performed at [facility], [address] | K/uL | LAB | | | | [address], | | | | | | [place] [address] | | | | + + + + + + | Absolute | 0.00Comment: Testing | 0.00 - 0.50 | EXTERNAL | | | Eosinophils | performed at [facility], [address] | K/uL | LAB | | | | [address], | | | | | | [place] [address] | | | | + + + + + + | Absolute | 0.01Comment: Testing | 0.00 - 0.10 | EXTERNAL | | | Basophils | performed at [facility], [address] | [address] | LAB | | | | [address], | | | | | | [place] [address] | | | | + + + + + + + + | Specimen | + + | Blood specimen | | (specimen) | + + + +---------+ + + | Performing | Address | City/State/Zipcode | Phone Number | | Organization | | | | + +---------+ + + | EXTERNAL LAB | | | | + +---------+ + + Phosphorus (05/25/2015 5:39 AM PDT) + + + + + + | Component | Value | Ref Range | Performed | Pathologist | | | | | At | Signature | + + + + + + | PHOSPHORUS | 4.0Comment: Testing | 2.3 - 4.8 mg/dL | EXTERNAL | | | | performed at [facility], [address] | | LAB | | | | [address], | | | | | | [place] [address] | | | | + + + + + + + + | Specimen | + + | Blood specimen | | (specimen) | + + + +---------+ + + | Performing | Address | City/State/Zipcode | Phone Number | | Organization | | | | + +---------+ + + | EXTERNAL LAB | | | | + +---------+ + + Magnesium (05/25/2015 5:39 AM PDT) + + + + + + | Component | Value | Ref Range | Performed | Pathologist | | | | | At | Signature | + + + + + + | Magnesium | 1.5 (L)Comment: Testing | 1.7 - 2.4 mg/dL | EXTERNAL | | | | performed at [facility], [address] | | LAB | | | | [address], | | | | | | [place] [address] | | | | + + + + + + + + | Specimen | + + | Blood specimen | | (specimen) | + + + +---------+ + + | Performing | Address | City/State/Zipcode | Phone Number | | Organization | | | | + +---------+ + + | EXTERNAL LAB | | | | + +---------+ + + Lipase (05/25/2015 5:39 AM PDT) + + + + + + | Component | Value | Ref Range | Performed | Pathologist | | | | | At | Signature | + + + + + + | Lipase | 581 (H)Comment: Testing | 73 - 393 U/L | EXTERNAL | | | | performed at [facility];[address] | | LAB | | | | [address];[place], [place] | | | | | | [address] | | | | + + + [...] + +---------+ + + Comprehensive Metabolic Panel (05/25/2015 5:39 AM PDT) + + + + + + | Component | Value | Ref Range | Performed | Pathologist | | | | | At | Signature | + + + + + + | Na | 131 (L)Comment: Testing | 135 - 143 | EXTERNAL | | | | performed at [facility], [address] | mmol/L | LAB | | | | [address], | | | | | | [place] [address] | | | | + + + + + + | K | 4.2Comment: Testing | 3.5 - 4.9 | EXTERNAL | | | | performed at [facility], [address] | mmol/L | LAB | | | | [address], | | | | | | [place] [address] | | | | + + + + + + | Cl | 99Comment: Testing | 99 - 109 mmol/L | EXTERNAL | | | | performed at [facility], [address] | | LAB | | | | [address], | | | | | | [place] [address] | | | | + + + + + + | CO2 | 26Comment: Testing | 23 - 32 mmol/L | EXTERNAL | | | | performed at [facility], [address] | | LAB | | | | [address], | | | | | | [place] [address] | | | | + + + + + + | Anion Gap | 10Comment: Testing | 5 - 20 mmol/L | EXTERNAL | | | | performed at [facility], [address] | | LAB | | | | [address], | | | | | | [place], [place] [address] | | | | + + + + + + | Glucose, | 127 (H)Comment: Testing | 65 - 99 mg/dL | EXTERNAL | | | Fasting | performed at [facility], [address] | | LAB | | | | [address], | | | | | | [place] [address] | | | | + + + + + + | BUN | 9Comment: Testing | 8 - 25 mg/dL | EXTERNAL | | | | performed at [facility], [address] | | LAB | | | | [address], | | | | | | [place] [address] | | | | + + + + + + | Creatinine | 0.73Comment: Testing | 0.70 - 1.30 | EXTERNAL | | | | performed at [facility], [address] | mg/dL | LAB | | | | [address], | | | | | | [place] [address] | | | | + + + + + + | BUN/Creatin | 12Comment: Testing | | EXTERNAL | | | ine Ratio | performed at [facility], [address] | | LAB | | | | [address], | | | | | | [place] [address] | | | | + + + + + + | Calcium | 8.7Comment: Testing | 8.5 - 10.5 | EXTERNAL | | | | performed at [facility], [address] | mg/dL | LAB | | | | [address], | | | | | | [place] [address] | | | | + + + + + + | Protein, | 7.0Comment: Testing | 6.3 - 8.2 g/dL | EXTERNAL | | | Total | performed at [facility], [address] | | LAB | | | | [address], | | | | | | [place] [address] | | | | + + + + + + | Albumin | 3.5 (L)Comment: Testing | 3.6 - 5.0 g/dL | EXTERNAL | | | | performed at [facility], [address] | | LAB | | | | [address], | | | | | | [place] [address] | | | | + + + + + + | Globulin | 3.5Comment: Testing | 1.3 - 4.9 g/dL | EXTERNAL | | | | performed at [facility], [address] | | LAB | | | [address], | | | | | | [place] [address] | | | | + + + + + + | A/G Ratio | 1.0Comment: Testing | 1.0 - 2.4 | EXTERNAL | | | | performed at [facility], [address] | | LAB | | | | [address], | | | | | | [place] [address] | | | | + + + + + + | Bilirubin | 1.1Comment: Testing | 0.1 - 1.5 mg/dL | EXTERNAL | | | Total | performed at [facility], [address] | | LAB | | | | [address], | | | | | | [place] [address] | | | | + + + + + + | ALP, | 197 (H)Comment: Testing | 35 - 115 U/L | EXTERNAL | | | External | performed at [facility], [address] | | LAB | | | | [address], | | | | | | [place] [address] | | | | + + + + + + | AST | 112 (H)Comment: Testing | 10 - 45 U/L | EXTERNAL | | | | performed at [facility], [address] | | LAB | | | | [address], | | | | | | [place] [address] | | | | + + + + + + | ALT | 177 (H)Comment: Testing | 10 - 65 U/L | EXTERNAL | | | | performed at [facility], [address] | | LAB | | | | [address], | | | | | | [place] [address] | | | | + + + [...] | | | | | | at [facility], [address] | | | | | | [address], | | | | | | [place] [address] | | | | + + + + + + + + | Specimen | + + | Blood specimen | | (specimen) | + + + +---------+ + + | Performing | Address | City/State/Zipcode | Phone Number | | Organization | | | | + +---------+ + + | EXTERNAL LAB | | | | + +---------+ + + FL ERCP Biliary and Pancreatic (05/24/2015 9:46 PM PDT) + + | Specimen | + + | | + + + + + | Impressions | Performed At | + + + | 1. No stricture or intraluminal filling defect within the common | | | bile duct. | | | 12:31 AM | | + + + + + + | Narrative | Performed At | + + + | [facility] ERCP HISTORY: 49 years. Male. Acute | | | pancreatitis. TECHNIQUE: 6 y fluoroscopic images of the right | | | upper quadrant of the abdomen. 6.9 minutes of fluoroscopy time was | | | utilized. FINDINGS: Contrast opacification of the intrauterine | | | texture hepatic bile duct. No evidence for stricture or intraluminal | | | filling defect. | | + + + + + | Procedure Note | + + | Amaury Arnett Conversion - 06/25/2019 3:36 AM PDT [facility] ERCP HISTORY:49 years. | | Male. Acute pancreatitis. TECHNIQUE:6 y fluoroscopic images of the right upper quadrant | | of the abdomen. 6.9 minutes of fluoroscopy time was utilized. FINDINGS:Contrast | | opacification of the intrauterine texture hepatic bile duct. No evidence for stricture | | or intraluminal filling defect. IMPRESSION: 1. No stricture or intraluminal filling | | defect within the common bile duct. Electronically signed by Rafal Crow DO on | | 05/25/2015 12:31 AM | |6 y fluoroscopic images of the right upper quadrant of the abdomen. 6.9 minutes of fluorosc opy time was utilized. | | | |FINDINGS: | |Contrast opacification of the intrauterine texture hepatic bile duct. No evidence for stric ture or intraluminal filling defect. | | | |IMPRESSION: | |1. No stricture or intraluminal filling defect within the common bile duct. | | | | | + + Potassium (05/24/2015 11:18 AM PDT) + + + + + + | Component | Value | Ref Range | Performed | Pathologist | | | | | At | Signature | + + + + + + | K | 3.7Comment: Testing | 3.5 - 4.9 | EXTERNAL | | | | performed at [facility];[address] | mmol/L | LAB | | | | [address];[place] | | | | | | [address] | | | | + + + + + + + + | Specimen | + + | Blood specimen | | (specimen) | + + + +---------+ + + | Performing | Address | City/State/Zipcode | Phone Number | | Organization | | | | + +---------+ + + | EXTERNAL LAB | | | | + +---------+ + + Magnesium (05/24/2015 11:18 AM PDT) + + + + + + | Component | Value | Ref Range | Performed | Pathologist | | | | | At | Signature | + + + + + + | Magnesium | 1.8Comment: Testing | 1.7 - 2.4 mg/dL | EXTERNAL | | | | performed at [facility];[address] | | LAB | | | | [address];[place], [place] | | | | | | [address] | | | | + + + [...] + +---------+ + + External Lab: CBC (05/24/2015 5:30 AM PDT) + + + + + + | Component | Value | Ref Range | Performed | Pathologist | | | | | At | Signature | + + + + + + | WBC | 3.95Comment: Testing | 3.80 - 11.00 | EXTERNAL | | | | performed at [facility], [address] | [address] | LAB | | | | [address], | | | | | | [place] [address] | | | | + + + + + + | Non- | 4.49Comment: Testing | 4.20 - 5.70 | EXTERNAL | | | Red Blood | performed at [facility], [address] | M/uL | LAB | | | Cells | [address], | | | | | Counted | [place] [address] | | | | + + + + + + | Hemoglobin | 12.6 (L)Comment: Testing | 13.2 - 17.0 | EXTERNAL | | | | performed at [facility], [address] | g/dL | LAB | | | | [address], | | | | | | [place] [address] | | | | + + + + + + | Hematocrit, | 39.0Comment: Testing | 39.0 - 50.0 % | EXTERNAL | | | POC | performed at [facility], [address] | | LAB | | | | [address], | | | | | | [place] [address] | | | | + + + + + + | MCV | 86.8Comment: Testing | 80.0 - 100.0 fl | EXTERNAL | | | | performed at [facility], [address] | | LAB | | | | [address], | | | | | | [place] [address] | | | | + + + + + + | MCH | 28.1Comment: Testing | 27.0 - 34.0 pg | EXTERNAL | | | | performed at [facility], [address] | | LAB | | | | [address], | | | | | | [place] [address] | | | | + + + + + + | MCHC | 32.4Comment: Testing | 32.0 - 35.5 | EXTERNAL | | | | performed at [facility], [address] | g/dL | LAB | | | | [address], | | | | | | [place] [address] | | | | + + + + + + | RDW-CV | 42.0Comment: Testing | 37 - 53 fl | EXTERNAL | | | | performed at [facility], [address] | | LAB | | | | [address], | | | | | | [place] [address] | | | | + + + + + + | Platelet | 126 (L)Comment: Testing | 150 - 400 K/uL | EXTERNAL | | | Count | performed at [facility], [address] | | LAB | | | Plasma | [address], | | | | | | [place] [address] | | | | + + + + + + | MPV | 9.6Comment: Testing | fl | EXTERNAL | | | | performed at [facility], [address] | | LAB | | | | [address], | | | | | | [place] [address] | | | | + + + + + + | Differentia | MANUALComment: Testing | | EXTERNAL | | | l Type | performed at [facility], [address] | | LAB | | | | [address], | | | | | | [place], [place] [address] | | | | + + + + + + | Segmented | 53Comment: Testing | % | EXTERNAL | | | Neutrophils | performed at [facility], [address] | | LAB | | | Manual | [address], | | | | | | [place], [place] [address] | | | | + + + + + + | Lymphocytes | 38Comment: Testing | % | EXTERNAL | | | Manual | performed at [facility], [address] | | LAB | | | | [address], | | | | | | [place], [place] [address] | | | | + + + + + + | Monocytes | 8Comment: Testing | % | EXTERNAL | | | Manual | performed at [facility], [address] | | LAB | | | | [address], | | | | | | [place] [address] | | | | + + + + + + | Eosinophils | 1Comment: Testing | % | EXTERNAL | | | Manual | performed at [facility], [address] | | LAB | | | | [address], | | | | | | [place] [address] | | | | + + + + + + | Absolute | 2.09Comment: Testing | 1.90 - 7.40 | EXTERNAL | | | Neutrophils | performed at [facility], [address] | K/uL | LAB | | | | [address], | | | | | | [place] [address] | | | | + + + + + + | Absolute | 1.50Comment: Testing | 1.00 - 3.90 | EXTERNAL | | | Lymphocytes | performed at [facility], [address] | K/[address] | LAB | | | | [address], | | | | | | [place] [address] | | | | + + + + + + | Absolute | 0.32Comment: Testing | 0.00 - 0.80 | EXTERNAL | | | Monocytes | performed at [facility], [address] | [address] | LAB | | | | [address], | | | | | | [place] [address] | | | | + + + + + + | Absolute | 0.04Comment: Testing | 0.00 - 0.50 | EXTERNAL | | | Eosinophils | performed at [facility], [address] | [address] | LAB | | | | [address], | | | | | | [place] [address] | | | | + + + + + + | RBC | NORMAL RBC MORPHComment: | | EXTERNAL | | | Morphology | NORMAL PLT MORPHTesting | | LAB | | | | performed at [facility], [address] | | | | | [address], | | | | | | [place] [address] | | | | + + + + + + + + | Specimen | + + | Blood specimen | | (specimen) | + + + +---------+ + + | Performing | Address | City/State/Zipcode | Phone Number | | Organization | | | | + +---------+ + + | EXTERNAL LAB | | | | + +---------+ + + Phosphorus (05/24/2015 5:30 AM PDT) + + + + + + | Component | Value | Ref Range | Performed | Pathologist | | | | | At | Signature | + + + + + + | PHOSPHORUS | 2.3Comment: Testing | 2.3 - 4.8 mg/dL | EXTERNAL | | | | performed at [facility], [address] | | LAB | | | | [address], | | | | | | [place] [address] | | | | + + + + + + + + | Specimen | + + | Blood specimen | | (specimen) | + + + +---------+ + + | Performing | Address | City/State/Zipcode | Phone Number | | Organization | | | | + +---------+ + + | EXTERNAL LAB | | | | + +---------+ + + Magnesium (05/24/2015 5:30 AM PDT) + + + + + + | Component | Value | Ref Range | Performed | Pathologist | | | | | At | Signature | + + + + + + | Magnesium | 1.6 (L)Comment: Testing | 1.7 - 2.4 mg/dL | EXTERNAL | | | | performed at [facility], [address] | | LAB | | | | [address], | | | | | | [place] [address] | | | | + + + + + + + + | Specimen | + + | Blood specimen | | (specimen) | + + + +---------+ + + | Performing | Address | City/State/Zipcode | Phone Number | | Organization | | | | + +---------+ + + | EXTERNAL LAB | | | | + +---------+ + + Lipase (05/24/2015 5:30 AM PDT) + + + + + + | Component | Value | Ref Range | Performed | Pathologist | | | | | At | Signature | + + + + + + | Lipase | 710 (H)Comment: Testing | 73 - 393 U/L | EXTERNAL | | | | performed at [facility];[address] | | LAB | | | | [address];[place] | | | | | | [address] | | | | + + + [...] + +---------+ + + Comprehensive Metabolic Panel (05/24/2015 5:30 AM PDT) + + + + + + | Component | Value | Ref Range | Performed | Pathologist | | | | | At | Signature | + + + + + + | Na | 134 (L)Comment: Testing | 135 - 143 | EXTERNAL | | | | performed at [facility], [address] | mmol/L | LAB | | | | [address], | | | | | | [place] [address] | | | | + + + + + + | K | 3.7Comment: Testing | 3.5 - 4.9 | EXTERNAL | | | | performed at [facility], [address] | mmol/L | LAB | | | | [address], | | | | | | [place] [address] | | | | + + + + + + | Cl | 103Comment: Testing | 99 - 109 mmol/L | EXTERNAL | | | | performed at [facility], [address] | | LAB | | | [address], | | | | | | [place] [address] | | | | + + + + + + | CO2 | 25Comment: Testing | 23 - 32 mmol/L | EXTERNAL | | | | performed at [facility], [address] | | LAB | | | | [address], | | | | | | [place] [address] | | | | + + + + + + | Anion Gap | 10Comment: Testing | 5 - 20 mmol/L | EXTERNAL | | | | performed at [facility], [address] | | LAB | | | | [address], | | | | | | [place] [address] | | | | + + + + + + | Glucose, | 93Comment: Testing | 65 - 99 mg/dL | EXTERNAL | | | Fasting | performed at [facility], [address] | | LAB | | | | [address], | | | | | | [place] [address] | | | | + + + + + + | BUN | 10Comment: Testing | 8 - 25 mg/dL | EXTERNAL | | | | performed at [facility], [address] | | LAB | | | | [address], | | | | | | [place] [address] | | | | + + + + + + | Creatinine | 0.69 (L)Comment: Testing | 0.70 - 1.30 | EXTERNAL | | | | performed at [facility], [address] | mg/dL | LAB | | | | [address], | | | | | | [place] [address] | | | | + + + + + + | BUN/Creatin | 14Comment: Testing | | EXTERNAL | | | ine Ratio | performed at [facility], [address] | | LAB | | | | [address], | | | | | | [place] [address] | | | | + + + + + + | Calcium | 8.3 (L)Comment: Testing | 8.5 - 10.5 | EXTERNAL | | | | performed at [facility], [address] | mg/dL | LAB | | | | [address], | | | | | | [place] [address] | | | | + + + + + + | Protein, | 6.2 (L)Comment: Testing | 6.3 - 8.2 g/dL | EXTERNAL | | | Total | performed at [facility], [address] | | LAB | | | | [address], | | | | | | [place] [address] | | | | + + + + + + | Albumin | 3.1 (L)Comment: Testing | 3.6 - 5.0 g/dL | EXTERNAL | | | | performed at [facility], [address] | | LAB | | | [address], | | | | | | [place] [address] | | | | + + + + + + | Globulin | 3.1Comment: Testing | 1.3 - 4.9 g/dL | EXTERNAL | | | | performed at [facility], [address] | | LAB | | | [address], | | | | | | [place] [address] | | | | + + + + + + | A/G Ratio | 1.0Comment: Testing | 1.0 - 2.4 | EXTERNAL | | | | performed at [facility], [address] | | LAB | | | | [address], | | | | | | [place] [address] | | | | + + + + + + | Bilirubin | 0.9Comment: Testing | 0.1 - 1.5 mg/dL | EXTERNAL | | | Total | performed at [facility], [address] | | LAB | | | | [address], | | | | | | [place] [address] | | | | + + + + + + | ALP, | 159 (H)Comment: Testing | 35 - 115 U/L | EXTERNAL | | | External | performed at [facility], [address] | | LAB | | | | [address], | | | | | | [place] [address] | | | | + + + + + + | AST | 210 (H)Comment: Testing | 10 - 45 U/L | EXTERNAL | | | | performed at [facility], [address] | | LAB | | | | [address], | | | | | | [place] [address] | | | | + + + + + + | ALT | 242 (H)Comment: Testing | 10 - 65 U/L | EXTERNAL | | | | performed at [facility], [address] | | LAB | | | | [address], | | | | | | [place] [address] | | | | + + + [...] | | | | | | at [facility], [address] | | | | | | [address], | | | | | | [place] [address] | | | | + + + + + + + + | Specimen | + + | Blood specimen | | (specimen) | + + + +---------+ + + | Performing | Address | City/State/Zipcode | Phone Number | | Organization | | | | + +---------+ + + | EXTERNAL LAB | | | | + +---------+ + + CK-MB (05/23/2015 6:00 PM PDT) + + + + + -+ | Component | Value | Ref Range | Performed | Pathologist | | | | | At | Signature | + + + + + -+ | CK-MB | 1.1Comment: Testing | 0.5 - 3.6 ng/mL | EXTERNAL | | | | performed at [facility] | | LAB | | | | [address];[place], [place] | | | | | | [address] | | | | + + + + + -+ | CK-MB Index | 2.0Comment: CK INDEX | | EXTERNAL | | | | INTERPRETATION: | | LAB | | | | MMB ng/mL | | | | | | | | | | | |CK INDEX INTERPRETATION: | | | | | | MMB ng/mL | | | | | | | | | | + + + + + -+ + + | Specimen | + + | Blood specimen | | (specimen) | + + + +---------+ + + | Performing | Address | City/State/Zipcode | Phone Number | | Organization | | | | + +---------+ + + | EXTERNAL LAB | | | | + +---------+ + + Troponin I (05/23/2015 6:00 PM PDT) + + + + + [...] | | | | | | ACUTE IN Testing | | | | | | performed at [facility];[address] | | | | | | [address];[place], [place] | | | | | | [address] | | | | + + + + + + + + | Specimen | + + | Blood specimen | | (specimen) | + + + +---------+ + + | Performing | Address | City/State/Zipcode | Phone Number | | Organization | | | | + +---------+ + + | EXTERNAL LAB | | | | + +---------+ + + CK Total (05/23/2015 6:00 PM PDT) + + + + + + | Component | Value | Ref Range | Performed | Pathologist | | | | | At | Signature | + + + + + + | CK, Total | 56Comment: Testing | 55 - 400 U/L | EXTERNAL | | | | performed at [facility];[address] | | LAB | | | | [address];[place], [place] | | | | | | [address] | | | | + + + + + + + + | Specimen | + + | Blood specimen | | (specimen) | + + + +---------+ + + | Performing | Address | City/State/Zipcode | Phone Number | | Organization | | | | + +---------+ + + | EXTERNAL LAB | | | | + +---------+ + + CK-MB (05/23/2015 11:58 AM PDT) + + + + + -+ | Component | Value | Ref Range | Performed | Pathologist | | | | | At | Signature | + + + + + -+ | CK-MB | 1.1Comment: Testing | 0.5 - 3.6 ng/mL | EXTERNAL | | | | performed at [facility];[address] | | LAB | | | | [address];[place], [place] | | | | | | [address] | | | | + + + + + -+ | CK-MB Index | 1.7Comment: CK INDEX | | EXTERNAL | | | | INTERPRETATION: | | LAB | | | | MMB ng/mL | | | | | | | | | | | |CK INDEX INTERPRETATION: | | | | | | MMB ng/mL | | | | | | | | | | + + + + + -+ + + | Specimen | + + | Blood specimen | | (specimen) | + + + +---------+ + + | Performing | Address | City/State/Zipcode | Phone Number | | Organization | | | | + +---------+ + + | EXTERNAL LAB | | | | + +---------+ + + Troponin I (05/23/2015 11:58 AM PDT) + + + + + + [...] | | | | | | ACUTE IN Testing | | | | | | performed at [facility];[address] | | | | | | [facility];[place], [place] | | | | | | [address] | | | | + + + + + + + + | Specimen | + + | Blood specimen | | (specimen) | + + + +---------+ + + | Performing | Address | City/State/Zipcode | Phone Number | | Organization | | | | + +---------+ + + | EXTERNAL LAB | | | | + +---------+ + + CK Total (05/23/2015 11:58 AM PDT) + + + + + + | Component | Value | Ref Range | Performed | Pathologist | | | | | At | Signature | + + + + + + | CK, Total | 65Comment: Testing | 55 - 400 U/L | EXTERNAL | | | | performed at [facility];[address] | | LAB | | | | [address];[place] | | | | | | [address] | | | | + + + [...] + + MRI Abdomen wo Contrast MRCP (05/23/2015 11:33 AM PDT) + + | Specimen | + + | | + + + + + | Impressions | Performed At | + + + | 1. Moderately dilated hepatic ductal system and mildly dilated | | | common bile duct without evidence of a common bile duct stone, | | | stricture or extrinsic compression. Findings may be due to | | | dysfunction of the sphincter of Ovi 2. Pancreatic duct is mildly | | | dilated to a diameter of 5.3 mm in the pancreatic head and shows | | | questionable stricturing at the junction of the pancreatic neck and | | | body. No pancreatic mass is identified. The anatomy does not | | | suggest pancreas divisum. | | + + + + + + | Narrative | Performed At | + + + | [facility] MRI ABDOMEN WO CONTRAST MRCP 05/23/2015 11:33 AM | | | HISTORY: 49 years. Male. Acute pancreatitis. Assess for common | | | bile duct stone. TECHNIQUE: Imaging was performed on a 1.5 Radha | | | MRI system. Multiplanar sequences were acquired according to a | | | standard department protocol without contrast. COMPARISON: | | | 08/19/2013 FINDINGS: The visualized portions of the heart and | | | lung bases are normal. The distal esophagus is normal. The | | | liver is normal in size, position, contour and signal intensity. No | | | solid or cystic masses are noted. The portal vein is normal. The | | | hepatic veins are normal. The gallbladder is normal in size. No | | | stones, sludge or wall thickening is noted. M.R.C.P. Intrahepatic | | | bilary ducts: Moderately dilated. Common bile duct: Mildly enlarged | | | measuring up to 9.8 mm but essentially unchanged from August 2013. | | | No intraluminal filling defect is seen to suggest a common duct | | | stone. There is no stricture or a choledochocele seen. Cystic duct: | | | Normal. Pancreatic duct: Appears mildly dilated in the head of the | | | pancreas to a diameter 5.3 mm. At the junction of the pancreatic | | | neck and body duct shows narrowing suggesting stricture. The caliber | | | of the pancreatic duct is otherwise relatively normal. The spleen | | | is normal in size and signal intensity. No solid or cystic masses | | | are noted. The pancreas is normal in size and signal intensity. | | | No solid or cystic masses are noted. The adrenal glands are | | | normal in size bilaterally. There is no evidence of an adrenal | | | adenoma or hyperplasia. The kidneys are symmetric in size | | | bilaterally and show no evidence of a solid mass. No hydronephrosis | | | is noted. A few tiny simple renal cysts are noted. The aorta and | | | vena cava are normal in caliber throughout their visualized course. | | | No free fluid is present. No adenopathy is seen in the abdomen. | | | The study is not optimized for evaluation of bowel. No obvious | | | mass or wall thickening is demonstrated in the visualized portions of | | | the stomach, small bowel and large bowel. The muscles are | | | symmetric. No focal atrophy or soft tissue mass is seen. No | | | hernias are identified. The osseous structures have normal bone | | | marrow signal intensity. | | + + + + + | Procedure Note | + + | Melquiades, Amaury Conversion - 06/25/2019 3:37 AM ARLENE WATTERS ABDOMEN WO CONTRAST | | MRCP05/23/2015 11:33 AM HISTORY:49 years. Male. Acute pancreatitis. Assess for common | | bile duct stone. TECHNIQUE:Imaging was performed on a 1.5 Radha MRI system. Multiplanar | | sequences were acquired according to a standard department protocol without contrast. | | COMPARISON:08/19/2013 FINDINGS:The visualized portions of the heart and lung bases are | | normal. The distal esophagus is normal. The liver is normal in size, position, contour | | and signal intensity. No solid or cystic masses are noted. The portal vein is normal. | | The hepatic veins are normal. The gallbladder is normal in size. No stones, sludge or | | wall thickening is noted. M.R.C.P.Intrahepatic bilary ducts: Moderately dilated.Common | | bile duct: Mildly enlarged measuring up to 9.8 mm but essentially unchanged from August | | 2012. No intraluminal filling defect is seen to suggest a common duct stone. There is | | no stricture or a choledochocele seen.Cystic duct: Normal.Pancreatic duct: Appears | | mildly dilated in the head of the pancreas to a diameter 5.3 mm. At the junction of the | | pancreatic neck and body duct shows narrowing suggesting stricture. The caliber of the | | pancreatic duct is otherwise relatively normal. The spleen is normal in size and signal | | intensity. No solid or cystic masses are noted. The pancreas is normal in size and | | signal intensity. No solid or cystic masses are noted. The adrenal glands are normal in | | size bilaterally. There is no evidence of an adrenal adenoma or hyperplasia. The | | kidneys are symmetric in size bilaterally and show no evidence of a solid mass. No | | hydronephrosis is noted. A few tiny simple renal cysts are noted. The aorta and vena | | cava are normal in caliber throughout their visualized course. No free fluid is present. | | No adenopathy is seen in the abdomen. The study is not optimized for evaluation of | | bowel. No obvious mass or wall thickening is demonstrated in the visualized portions of | | the stomach, small bowel and large bowel. The muscles are symmetric. No focal atrophy | | or soft tissue mass is seen. No hernias are identified. The osseous structures have | | normal bone marrow signal intensity. IMPRESSION: 1. Moderately dilated hepatic ductal | | system and mildly dilated common bile duct without evidence of a common bile duct stone, | | stricture or extrinsic compression. Findings may be due to dysfunction of the | | sphincter of Odie2. Pancreatic duct is mildly dilated to a diameter of 5.3 mm in the | | pancreatic head and shows questionable stricturing at the junction of the pancreatic | | neck and body. No pancreatic mass is identified. The anatomy does not suggest pancreas | | divisum. | |The adrenal glands are normal in size bilaterally. There is no evidence of an adrenal tete sophie or hyperplasia. | | | |The kidneys are symmetric in size bilaterally and show no evidence of a solid mass. No hyd ronephrosis is noted. A few tiny simple renal cysts are noted. | | | |The aorta and vena cava are normal in caliber throughout their visualized course. | | | |No free fluid is present. | | | |No adenopathy is seen in the abdomen. | | | |The study is not optimized for evaluation of bowel. No obvious mass or wall thickening is demonstrated in the visualized portions of the stomach, small bowel and large bowel. | | | |The muscles are symmetric. No focal atrophy or soft tissue mass is seen. No hernias are i dentified. | | | |The osseous structures have normal bone marrow signal intensity. | | | |IMPRESSION: | |1. Moderately dilated hepatic ductal system and mildly dilated common bile duct without ev idence of a common bile duct stone, stricture or extrinsic compression. Findings may be due to dysfunction of the sphincter of Ovi | |2. Pancreatic duct is mildly dilated to a diameter of 5.3 mm in the pancreatic head and sh ows questionable stricturing at the junction of the pancreatic neck and body. No pancreatic mass is identified. The anatomy does not suggest pancreas divisum. | | | | | + + Potassium (05/23/2015 10:01 AM PDT) + + + + + + | Component | Value | Ref Range | Performed | Pathologist | | | | | At | Signature | + + + + + + | K | 4.0Comment: Testing | 3.5 - 4.9 | EXTERNAL | | | | performed at [facility];[address] | mmol/L | LAB | | | | [address];[place] | | | | | | [address] | | | | + + + + + + + + | Specimen | + + | Blood specimen | | (specimen) | + + + +---------+ + + | Performing | Address | City/State/Zipcode | Phone Number | | Organization | | | | + +---------+ + + | EXTERNAL LAB | | | | + +---------+ + + Magnesium (05/23/2015 10:01 AM PDT) + + + + + + | Component | Value | Ref Range | Performed | Pathologist | | | | | At | Signature | + + + + + + | Magnesium | 1.9Comment: Testing | 1.7 - 2.4 mg/dL | EXTERNAL | | | | performed at [facility];[address] | | LAB | | | | [address];[place] | | | | | | [address] | | | | + + + + + + + + | Specimen | + + | Blood specimen | | (specimen) | + + + +---------+ + + | Performing | Address | City/State/Zipcode | Phone Number | | Organization | | | | + +---------+ + + | EXTERNAL LAB | | | | + +---------+ + + Culture, Urine (05/23/2015 9:18 AM PDT) + + | Specimen | + + | Urine specimen | | (specimen) | + + + + + | Narrative | Performed At | + + + | Specimen Description URINE,CLEAN CATCH CULTURE | EXTERNAL LAB | | NO GROWTH | | | Testing performed at [facility], [address] | | | [place] [address] | | + + + + +---------+ + + | Performing | Address | City/State/Zipcode | Phone Number | | Organization | | | | + +---------+ + + | EXTERNAL LAB | | | | + +---------+ + + Urinalysis with Microscopic if Indicated (05/23/2015 9:17 AM PDT) + + + + + + | Component | Value | Ref Range | Performed | Pathologist | | | | | At | Signature | + + + + + + | Color | DK YELLOWComment: | | EXTERNAL | | | | Testing performed at | | LAB | | | | [facility], [address] | | | | | | [place] | | | | | | [address] | | | | + + + + + + | Clarity, | CLEARComment: Testing | | EXTERNAL | | | Urine | performed at [facility], [address] | | LAB | | | | [address], | | | | | | [place] [address] | | | | + + + + + + | Specific | 1.020Comment: Testing | 1.002 - 1.030 | EXTERNAL | | | [place], | performed at [facility], [address] | | LAB | | | Urine | [address], | | | | | | [place] [address] | | | | + + + + + + | Leukocyte | NEGATIVEComment: | | EXTERNAL | | | Esterase, | Testing performed at | | LAB | | | Urine | [facility], [address] | | | | | | [place] | | | | | | [address] | | | | + + + + + + | Nitrite, | NEGATIVEComment: Testing | | EXTERNAL | | | Urine | performed at [facility], [address] | | LAB | | | | [address], | | | | | | [place] [address] | | | | + + + + + + | Urobilinoge | 1.0Comment: Testing | mg/dL | EXTERNAL | | | n, Urine | performed at [facility], [address] | | LAB | | | | [address], | | | | | | [place] [address] | | | | + + + + + + | Protein, | NEGATIVEComment: Testing | mg/dL | EXTERNAL | | | Urine | performed at [facility], [address] | | LAB | | | | [address], | | | | | | [place] [address] | | | | + + + + + + | pH, Urine | 5.5Comment: Testing | 5.0 - 8.0 | EXTERNAL | | | | performed at [facility], [address] | | LAB | | | | [address], | | | | | | [place] [address] | | | | + + + + + + | Blood, | NEGATIVEComment: Testing | | EXTERNAL | | | Urine | performed at [facility], [address] | | LAB | | | | [address], | | | | | | [place] [address] | | | | + + + + + + | Ketones | NEGATIVEComment: Testing | mg/dL | EXTERNAL | | | | performed at [facility], [address] | | LAB | | | | [address], | | | | | | [place] [address] | | | | + + + + + + | Bilirubin, | SMALL (A)Comment: | | EXTERNAL | | | Urine | Testing performed at | | LAB | | | | [facility], [address] | | | | | | [place] | | | | | | [address] | | | | + + + + + + | Glucose, | NEGATIVEComment: Testing | mg/dL | EXTERNAL | | | Urine | performed at [facility], [address] | | LAB | | | | [address], | | | | | | [place] [address] | | | | + + + + + + + + | Specimen | + + | Urine specimen | | (specimen) | + + + +---------+ + + | Performing | Address | City/State/Zipcode | Phone Number | | Organization | | | | + +---------+ + + | EXTERNAL LAB | | | | + +---------+ + + Culture, Blood, 2nd Specimen (05/23/2015 3:35 AM PDT) + + | Specimen | + + | Blood specimen | | (specimen) | + + + + + | Narrative | Performed At | + + + | Specimen Description BLOOD, PERIPHERAL DRAW | EXTERNAL LAB | | SPECIAL REQUESTS R HAND | | | Testing performed at [facility];[address] | | | [facility];[place] [address] CULTURE | | | NO GROWTH | | | Testing performed at [facility], [address] [facility], [place], [place] | | | [address] | | + + + + +---------+ + + | Performing | Address | City/State/Zipcode | Phone Number | | Organization | | | | + +---------+ + + | EXTERNAL LAB | | | | + +---------+ + + Culture, Blood (05/23/2015 3:19 AM PDT) + + | Specimen | + + | Blood specimen | | (specimen) | + + + + + | Narrative | Performed At | + + + | Specimen Description BLOOD, PERIPHERAL DRAW | EXTERNAL LAB | | SPECIAL REQUESTS L AC | | | Testing performed at [facility];8 | | | [facility];[place] [address] CULTURE | | | NO GROWTH | | | Testing performed at [facility], [address] [facility], [place], [place] | | | [address] | | + + + + +---------+ + + | Performing | Address | City/State/Zipcode | Phone Number | | Organization | | | | + +---------+ + + | EXTERNAL LAB | | | | + +---------+ + + CK-MB (05/23/2015 3:19 AM PDT) + + + + + -+ | Component | Value | Ref Range | Performed | Pathologist | | | | | At | Signature | + + + + + -+ | CK-MB | 1.0Comment: Testing | 0.5 - 3.6 ng/mL | EXTERNAL | | | | performed at [facility];[address] | | LAB | | | | [address];[place], [place] | | | | | | [address] | | | | + + + + + -+ | CK-MB Index | 1.4Comment: CK INDEX | | EXTERNAL | | | | INTERPRETATION: | | LAB | | | | MMB ng/mL | | | | | | | | | | | |CK INDEX INTERPRETATION: | | | | | | MMB ng/mL | | | | | | | | | | + + + + + -+ + + | Specimen | + + | Blood specimen | | (specimen) | + + + +---------+ + + | Performing | Address | City/State/Zipcode | Phone Number | | Organization | | | | + +---------+ + + | EXTERNAL LAB | | | | + +---------+ + + Troponin I (05/23/2015 3:19 AM PDT) + + + + + + [...] | | | | | | ACUTE IN Testing | | | | | | performed at [facility];[address] | | | | | | [address];[place], [place] | | | | | | [address] | | | | + + + + + + + + | Specimen | + + | Blood specimen | | (specimen) | + + + +---------+ + + | Performing | Address | City/State/Zipcode | Phone Number | | Organization | | | | + +---------+ + + | EXTERNAL LAB | | | | + +---------+ + + PTT (05/23/2015 3:19 AM PDT) + + + + + + | Component | Value | Ref Range | Performed | Pathologist | | | | | At | Signature | + + + + + + | aPTT, | 25Comment: Testing | 23 - 32 seconds | EXTERNAL | | | Patient | performed at [facility];[address] | | LAB | | | | [address];[place] | | | | | | [address] | | | | + + + + + + + + | Specimen | + + | Blood specimen | | (specimen) | + + + +---------+ + + | Performing | Address | City/State/Zipcode | Phone Number | | Organization | | | | + +---------+ + + | EXTERNAL LAB | | | | + +---------+ + + Protime INR (05/23/2015 3:19 AM PDT) + + + + + + [...] | | | | | performed at [facility] | | | | | | [facility];[place], [place] | | | | | | [address] | | | | + + + [...] + +---------+ + + External Lab: CBC (05/23/2015 3:19 AM PDT) + + + + + + | Component | Value | Ref Range | Performed | Pathologist | | | | | At | Signature | + + + + + + | WBC | 3.90Comment: Testing | 3.80 - 11.00 | EXTERNAL | | | | performed at [facility], [address] | K/uL | LAB | | | | [address], | | | | | | [place] [address] | | | | + + + + + + | Non- | 4.81Comment: Testing | 4.20 - 5.70 | EXTERNAL | | | Red Blood | performed at [facility], [address] | M/uL | LAB | | | Cells | [address], | | | | | Counted | [place] [address] | | | | + + + + + + | Hemoglobin | 13.4Comment: Testing | 13.2 - 17.0 | EXTERNAL | | | | performed at [facility], [address] | g/dL | LAB | | | | [address], | | | | | | [place] [address] | | | | + + + + + + | Hematocrit, | 41.8Comment: Testing | 39.0 - 50.0 % | EXTERNAL | | | POC | performed at [facility], [address] | | LAB | | | | [address], | | | | | | [place] [address] | | | | + + + + + + | MCV | 86.9Comment: Testing | 80.0 - 100.0 fl | EXTERNAL | | | | performed at [facility], [address] | | LAB | | | [address], | | | | | | [place] [address] | | | | + + + + + + | MCH | 27.8Comment: Testing | 27.0 - 34.0 pg | EXTERNAL | | | | performed at [facility], [address] | | LAB | | | | [address], | | | | | | [place] [address] | | | | + + + + + + | MCHC | 32.0Comment: Testing | 32.0 - 35.5 | EXTERNAL | | | | performed at [facility], [address] | g/dL | LAB | | | | [address], | | | | | | [place] [address] | | | | + + + + + + | RDW-CV | 42.4Comment: Testing | 37 - 53 fl | EXTERNAL | | | | performed at [facility], [address] | | LAB | | | | [address], | | | | | | [place] [address] | | | | + + + + + + | Platelet | 151Comment: Testing | 150 - 400 K/uL | EXTERNAL | | | Count | performed at [facility], [address] | | LAB | | | Plasma | [address], | | | | | | [place], [place] [address] | | | | + + + + + + | MPV | 9.2Comment: Testing | fl | EXTERNAL | | | | performed at [facility], [address] | | LAB | | | | [address], | | | | | | [place], [place] [address] | | | | + + + + + + | Differentia | MANUALComment: Testing | | EXTERNAL | | | l Type | performed at [facility], [address] | | LAB | | | | [address], | | | | | | [place], [place] [address] | | | | + + + + + + | Segmented | 35Comment: Testing | % | EXTERNAL | | | Neutrophils | performed at [facility], [address] | | LAB | | | Manual | [address], | | | | | | [place] [address] | | | | + + + + + + | % Bands | 1Comment: Testing | % | EXTERNAL | | | | performed at [facility], [address] | | LAB | | | | [address], | | | | | | [place] [address] | | | | + + + + + + | Lymphocytes | 50Comment: Testing | % | EXTERNAL | | | Manual | performed at [facility], [address] | | LAB | | | | [address], | | | | | | [place] [address] | | | | + + + + + + | Monocytes | 12Comment: Testing | % | EXTERNAL | | | Manual | performed at [facility], [address] | | LAB | | | | [address], | | | | | | [place] [address] | | | | + + + + + + | Eosinophils | 1Comment: Testing | % | EXTERNAL | | | Manual | performed at [facility], [address] | | LAB | | | | [address], | | | | | | [place] [address] | | | | + + + + + + | Basophils | 1Comment: Testing | % | EXTERNAL | | | Manual | performed at [facility], [address] | | LAB | | | | [address], | | | | | | [place] [address] | | | | + + + + + + | Absolute | 1.37 (L)Comment: Testing | 1.90 - 7.40 | EXTERNAL | | | Neutrophils | performed at [facility], [address] | K/uL | LAB | | | | [address], | | | | | | [place] [address] | | | | + + + + + + | Bands | 0.04Comment: Testing | 0.00 - 0.20 | EXTERNAL | | | Manual | performed at [facility], [address] | K/uL | LAB | | | | [address], | | | | | | [place] [address] | | | | + + + + + + | Absolute | 1.94Comment: Testing | 1.00 - 3.90 | EXTERNAL | | | Lymphocytes | performed at [facility], [address] | K/uL | LAB | | | | [address], | | | | | | [place] [address] | | | | + + + + + + | Absolute | 0.47Comment: Testing | 0.00 - 0.80 | EXTERNAL | | | Monocytes | performed at [facility], [address] | K/uL | LAB | | | | [address], | | | | | | [place] [address] | | | | + + + + + + | Absolute | 0.04Comment: Testing | 0.00 - 0.50 | EXTERNAL | | | Eosinophils | performed at [facility], [address] | K/uL | LAB | | | | [address], | | | | | | [place] [address] | | | | + + + + + + | Absolute | 0.04Comment: Testing | 0.00 - 0.10 | EXTERNAL | | | Basophils | performed at [facility], [address] | K/uL | LAB | | | | [address], | | | | | | [place] [address] | | | | + + + + + + | RBC | NORMAL RBC MORPHComment: | | EXTERNAL | | | Morphology | NORMAL PLT MORPHTesting | | LAB | | | | performed at [facility], [address] | | | | [address], | | | | | | [place] [address] | | | | + + + + + + + + | Specimen | + + | Blood specimen | | (specimen) | + + + +---------+ + + | Performing | Address | City/State/Zipcode | Phone Number | | Organization | | | | + +---------+ + + | EXTERNAL LAB | | | | + +---------+ + + Phosphorus (05/23/2015 3:19 AM PDT) + + + + + + | Component | Value | Ref Range | Performed | Pathologist | | | | | At | Signature | + + + + + + | PHOSPHORUS | 3.2Comment: Testing | 2.3 - 4.8 mg/dL | EXTERNAL | | | | performed at [facility], [address] | | LAB | | | | [address], | | | | | | [place] [address] | | | | + + + + + + + + | Specimen | + + | Blood specimen | | (specimen) | + + + +---------+ + + | Performing | Address | City/State/Zipcode | Phone Number | | Organization | | | | + +---------+ + + | EXTERNAL LAB | | | | + +---------+ + + Magnesium (05/23/2015 3:19 AM PDT) + + + + + + | Component | Value | Ref Range | Performed | Pathologist | | | | | At | Signature | + + + + + + | Magnesium | 1.6 (L)Comment: Testing | 1.7 - 2.4 mg/dL | EXTERNAL | | | | performed at [facility], [address] | | LAB | | | | [address], | | | | | | [place] [address] | | | | + + + + + + + + | Specimen | + + | Blood specimen | | (specimen) | + + + +---------+ + + | Performing | Address | City/State/Zipcode | Phone Number | | Organization | | | | + +---------+ + + | EXTERNAL LAB | | | | + +---------+ + + Lipase (05/23/2015 3:19 AM PDT) + + + + + + | Component | Value | Ref Range | Performed | Pathologist | | | | | At | Signature | + + + + + + | Lipase | 3,319 (H)Comment: | 73 - 393 U/L | EXTERNAL | | | | Testing performed at | | LAB | | | | [facility];[address];[place] [address] | | | | + + + + + + + + | Specimen | + + | Blood specimen | | (specimen) | + + + +---------+ + + | Performing | Address | City/State/Zipcode | Phone Number | | Organization | | | | + +---------+ + + | EXTERNAL LAB | | | | + +---------+ + + Hemoglobin A1C (05/23/2015 3:19 AM PDT) + + + + + + | Component | Value | Ref Range | Performed | Pathologist | | | | | At | Signature | + + + + + + | Hemoglobin | 6.0Comment: The [place] | 4.0 - 6.0 % | EXTERNAL | | | A1c | Diabetes Association | | LAB | | | | considers a hemoglobin | | | | | | A1c result of <7.0% to | | | | | | be the goal of diabetic | | | | | | therapy. When results | | | | | | are consistently >8.0%, | | | | | | the ADA suggests | | | | | | reevaluation of the | | | | | | treatment regimen. The | | | | | | testing method used is | | | | | | certified traceable to | | | | | | the Diabetes Control and | | | | | | Complications Trial | | | | | | reference method.Testing | | | | | | performed at [facility], [address] | | | | | [address], | | | | | | [place] [address] | | | | + + + + + + | Glycohemogl | 126Comment: The ADA | mg/dL | EXTERNAL | | | obin | considers an eAG result | | LAB | | | (GHb),Total | of LT 154 mg/dL to be | | | | | | the goal of diabetic | | | | | | therapy. Estimated | | | | | | Average Glucose | | | | | | calculated from | | | | | | hemoglobin A1c by use of | | | | | | the ADA recommended | | | | | | formula.Testing | | | | | | performed at [facility], [address] | | | | | | [address] [facility], | | | | | | [place] [address] | | | | + + + + + + + + | Specimen | + + | Blood specimen | | (specimen) | + + + +---------+ + + | Performing | Address | City/State/Zipcode | Phone Number | | Organization | | | | + +---------+ + + | EXTERNAL LAB | | | | + +---------+ + + CK Total (05/23/2015 3:19 AM PDT) + + + + + + | Component | Value | Ref Range | Performed | Pathologist | | | | | At | Signature | + + + + + + | CK, Total | 71Comment: Testing | 55 - 400 U/L | EXTERNAL | | | | performed at [facility];[address] | | LAB | | | | [address];[place] | | | | | | [address] | | | | + + + + + + + + | Specimen | + + | Blood specimen | | (specimen) | + + + +---------+ + + | Performing | Address | City/State/Zipcode | Phone Number | | Organization | | | | + +---------+ + + | EXTERNAL LAB | | | | + +---------+ + + Bilirubin, Direct (05/23/2015 3:19 AM PDT) + + + + + + | Component | Value | Ref Range | Performed | Pathologist | | | | | At | Signature | + + + + + + | Bilirubin | 1.1 (H)Comment: Testing | 0.0 - 0.3 mg/dL | EXTERNAL | | | Direct | performed at [facility], [address] | | LAB | | | | [address], | | | | | | [place] [address] | | | | + + + + + + + + | Specimen | + + | | + + + +---------+ + + | Performing | Address | City/State/Zipcode | Phone Number | | Organization | | | | + +---------+ + + | EXTERNAL LAB | | | | + +---------+ + + Amylase (05/23/2015 3:19 AM PDT) + + + + + + | Component | Value | Ref Range | Performed | Pathologist | | | | | At | Signature | + + + + + + | Amylase | 230 (H)Comment: Testing | 25 - 115 U/L | EXTERNAL | | | | performed at [facility], [address] | | LAB | | | | [address], | | | | | | [place] [address] | | | | + + + + + + + + | Specimen | + + | | + + + +---------+ + + | Performing | Address | City/State/Zipcode | Phone Number | | Organization | | | | + +---------+ + + | EXTERNAL LAB | | | | + +---------+ + + Lipid Panel (05/23/2015 3:19 AM PDT) + + + + + + | Component | Value | Ref Range | Performed | Pathologist | | | | | At | Signature | + + + + + + | Cholesterol | 130Comment: Testing | mg/dL | EXTERNAL | | | | performed at [facility], [address] | | LAB | | | | [address], | | | | | | [place] [address] | | | | + + + + + + | Triglycerid | 146Comment: Testing | mg/dL | EXTERNAL | | | es | performed at [facility], [address] | | LAB | | | | [address], | | | | | | [place] [address] | | | | + + + + + + | HDL | 29 (L)Comment: Testing | mg/dL | EXTERNAL | | | | performed at [facility], [address] | | LAB | | | | [address], | | | | | | [place] [address] | | | | + + + + + + | LDL, | 72Comment: Testing | mg/dL | EXTERNAL | | | Calculated | performed at [facility], [address] | | LAB | | | | [address], | | | | | | [place] [address] | | | | + + + [...] + +---------+ + + Comprehensive Metabolic Panel (05/23/2015 3:19 AM PDT) + + + + + + | Component | Value | Ref Range | Performed | Pathologist | | | | | At | Signature | + + + + + + | Na | 135Comment: Testing | 135 - 143 | EXTERNAL | | | | performed at [facility], [address] | mmol/L | LAB | | | | [address], | | | | | | [place] [address] | | | | + + + + + + | K | 3.7Comment: Testing | 3.5 - 4.9 | EXTERNAL | | | | performed at [facility], [address] | mmol/L | LAB | | | | [address], | | | | | | [place] [address] | | | | + + + + + + | Cl | 105Comment: Testing | 99 - 109 mmol/L | EXTERNAL | | | | performed at [facility], [address] | | LAB | | | | [address], | | | | | | [place] [address] | | | | + + + + + + | CO2 | 27Comment: Testing | 23 - 32 mmol/L | EXTERNAL | | | | performed at [facility], [address] | | LAB | | | | [address], | | | | | | [place] [address] | | | | + + + + + + | Anion Gap | 7Comment: Testing | 5 - 20 mmol/L | EXTERNAL | | | | performed at [facility], [address] | | LAB | | | | [address], | | | | | | [place] [address] | | | | + + + + + + | Glucose, | 100 (H)Comment: Testing | 65 - 99 mg/dL | EXTERNAL | | | Fasting | performed at [facility], [address] | | LAB | | | | [address], | | | | | | [place] [address] | | | | + + + + + + | BUN | 15Comment: Testing | 8 - 25 mg/dL | EXTERNAL | | | | performed at [facility], [address] | | LAB | | | | [address], | | | | | | [place] [address] | | | | + + + + + + | Creatinine | 0.68 (L)Comment: Testing | 0.70 - 1.30 | EXTERNAL | | | | performed at [facility], [address] | mg/dL | LAB | | | | [address], | | | | | | [place] [address] | | | | + + + + + + | BUN/Creatin | 22Comment: Testing | | EXTERNAL | | | ine Ratio | performed at [facility], [address] | | LAB | | | | [address], | | | | | | [place] [address] | | | | + + + + + + | Calcium | 8.2 (L)Comment: Testing | 8.5 - 10.5 | EXTERNAL | | | | performed at [facility], [address] | mg/dL | LAB | | | | [address], | | | | | | [place] [address] | | | | + + + + + + | Protein, | 6.7Comment: Testing | 6.3 - 8.2 g/dL | EXTERNAL | | | Total | performed at [facility], [address] | | LAB | | | | [address], | | | | | | [place] [address] | | | | + + + + + + | Albumin | 3.4 (L)Comment: Testing | 3.6 - 5.0 g/dL | EXTERNAL | | | | performed at [facility], [address] | | LAB | | | | [address], | | | | | | [place] [address] | | | | + + + + + + | Globulin | 3.3Comment: Testing | 1.3 - 4.9 g/dL | EXTERNAL | | | | performed at [facility], [address] | | LAB | | | | [address], | | | | | | [place] [address] | | | | + + + + + + | A/G Ratio | 1.0Comment: Testing | 1.0 - 2.4 | EXTERNAL | | | | performed at [facility], [address] | | LAB | | | | [address], | | | | | | [place] [address] | | | | + + + + + + | Bilirubin | 1.6 (H)Comment: Testing | 0.1 - 1.5 mg/dL | EXTERNAL | | | Total | performed at [facility], [address] | | LAB | | | | [address], | | | | | | [place] [address] | | | | + + + + + + | ALP, | 129 (H)Comment: Testing | 35 - 115 U/L | EXTERNAL | | | External | performed at [facility], [address] | | LAB | | | | [address], | | | | | | [place] [address] | | | | + + + + + + | AST | 376 (H)Comment: Testing | 10 - 45 U/L | EXTERNAL | | | | performed at [facility], [address] | | LAB | | | | [address], | | | | | | [place] [address] | | | | + + + + + + | ALT | 263 (H)Comment: Testing | 10 - 65 U/L | EXTERNAL | | | | performed at [facility], [address] | | LAB | | | | [address], | | | | | | [place] [address] | | | | + + + [...] | | | | | | at [facility], [address] | | | | | | [address] [facility], | | | | | | [place] [address] | | | | + + + [...] + +---------+ + + External Lab: CBC (05/23/2015 1:35 AM PDT) + + + + + + | Component | Value | Ref Range | Performed | Pathologist | | | | | At | Signature | + + + + + + | WBC | 4.57Comment: Testing | 3.80 - 11.00 | EXTERNAL | | | | performed at [facility];[address] | K/uL | LAB | | | | [address];[place] | | | | | | [address] | | | | + + + + + + | Non- | 4.94Comment: Testing | 4.20 - 5.70 | EXTERNAL | | | Red Blood | performed at [facility];[address] | M/uL | LAB | | | Cells | [address];[place] | | | | | Counted | [id number] | | | | + + + + + + | Hemoglobin | 14.0Comment: Testing | 13.2 - 17.0 | EXTERNAL | | | | performed at [facility];[address] | g/dL | LAB | | | | [address];[place] | | | | | | [address] | | | | + + + + + + | Hematocrit, | 42.5Comment: Testing | 39.0 - 50.0 % | EXTERNAL | | | POC | performed at [facility];[address] | | LAB | | | | [address];[place] | | | | | | [address] | | | | + + + + + + | MCV | 86.1Comment: Testing | 80.0 - 100.0 fl | EXTERNAL | | | | performed at [facility];[address] | | LAB | | | | [address];[place] | | | | | | [address] | | | | + + + + + + | MCH | 28.4Comment: Testing | 27.0 - 34.0 pg | EXTERNAL | | | | performed at [facility];[address] | | LAB | | | | [address];[place] | | | | | | [address] | | | | + + + + + + | MCHC | 33.0Comment: Testing | 32.0 - 35.5 | EXTERNAL | | | | performed at [facility];[address] | g/dL | LAB | | | | [address];[place] | | | | | | [address] | | | | + + + + + + | RDW-CV | 41.6Comment: Testing | 37 - 53 fl | EXTERNAL | | | | performed at [facility];[address] | | LAB | | | | [address];[place] | | | | | | [address] | | | | + + + + + + | Platelet | 163Comment: Testing | 150 - 400 K/uL | EXTERNAL | | | Count | performed at [facility];[address] | | LAB | | | Plasma | [address];[place] | | | | | | [address] | | | | + + + + + + | MPV | 8.8Comment: Testing | fl | EXTERNAL | | | | performed at [facility];[address] | | LAB | | | | [address];[place] | | | | | | [address] | | | | + + + + + + | Differentia | MANUALComment: Testing | | EXTERNAL | | | l Type | performed at [facility];[address] | | LAB | | | | [address];[place] | | | | | | [address] | | | | + + + + + + | Segmented | 37Comment: Testing | % | EXTERNAL | | | Neutrophils | performed at [facility];[address] | | LAB | | | Manual | [address];[place] | | | | | | [address] | | | | + + + + + + | % Bands | 3Comment: Testing | % | EXTERNAL | | | | performed at [facility];[address] | | LAB | | | | [address];[place] | | | | | | [address] | | | | + + + + + + | Lymphocytes | 41Comment: Testing | % | EXTERNAL | | | Manual | performed at [facility];[address] | | LAB | | | | [address];[place] | | | | | | [address] | | | | + + + + + + | Reactive | 13Comment: Testing | % | EXTERNAL | | | Lymphocytes | performed at [facility];[address] | | LAB | | | | [address];[place] | | | | | | [address] | | | | + + + + + + | Monocytes | 1Comment: Testing | % | EXTERNAL | | | Manual | performed at [facility];[address] | | LAB | | | | [address];[place] | | | | | | [address] | | | | + + + + + + | Eosinophils | 4Comment: Testing | % | EXTERNAL | | | Manual | performed at [facility];[address] | | LAB | | | | [address];[place] | | | | | | [address] | | | | + + + + + + | Basophils | 1Comment: Testing | % | EXTERNAL | | | Manual | performed at [facility];[address] | | LAB | | | | [address];[place] | | | | | | [address] | | | | + + + + + + | Absolute | 1.69 (L)Comment: Testing | 1.90 - 7.40 | EXTERNAL | | | Neutrophils | performed at [facility];[address] | K/uL | LAB | | | | [address];[place] | | | | | | [address] | | | | + + + + + + | Bands | 0.14Comment: Testing | 0.00 - 0.20 | EXTERNAL | | | Manual | performed at [facility];[address] | K/uL | LAB | | | | [address];[place] | | | | | | [address] | | | | + + + + + + | Absolute | 1.87Comment: Testing | 1.00 - 3.90 | EXTERNAL | | | Lymphocytes | performed at [facility];[address] | K/uL | LAB | | | | [address];[place] | | | | | | [address] | | | | + + + + + + | Reactive | 0.59Comment: Testing | K/uL | EXTERNAL | | | Lymphocytes | performed at [facility];[address] | | LAB | | | | [address];[place] | | | | | | [address] | | | | + + + + + + | Absolute | 0.05Comment: Testing | 0.00 - 0.80 | EXTERNAL | | | Monocytes | performed at [facility];[address] | K/uL | LAB | | | | [address];[place] | | | | | | [address] | | | | + + + + + + | Absolute | 0.18Comment: Testing | 0.00 - 0.50 | EXTERNAL | | | Eosinophils | performed at [facility];[address] | K/uL | LAB | | | | [address];[place] | | | | | | [address] | | | | + + + + + + | Absolute | 0.05Comment: Testing | 0.00 - 0.10 | EXTERNAL | | | Basophils | performed at [facility];[address] | K/uL | LAB | | | | [address];[place] | | | | | | [address] | | | | + + + + + + | Platelet | ADEQUATEComment: Testing | | EXTERNAL | | | Estimate | performed at [facility];[address] | | LAB | | | | [address];[place] | | | | | | [address] | | | | + + + + + + | RBC | RBC AND PLT MORPHOLOGY | | EXTERNAL | | | Morphology | APPEAR NORMALComment: | | LAB | | | | Testing performed at | | | | | | [facility];[address] [place] [address] | | | | | | [facility];[place] [address] | | | | + + + + + + + + | Specimen | + + | Blood specimen | | (specimen) | + + + +---------+ + + | Performing | Address | City/State/Zipcode | Phone Number | | Organization | | | | + +---------+ + + | EXTERNAL LAB | | | | + +---------+ + + Lipase (05/23/2015 1:35 AM PDT) + + + + + + | Component | Value | Ref Range | Performed | Pathologist | | | | | At | Signature | + + + + + + | Lipase | 4,748 (H)Comment: | 73 - 393 U/L | EXTERNAL | | | | Testing performed at | | LAB | | | | [facility];[address];[place] [address] | | | | + + + [...] + +---------+ + + Comprehensive Metabolic Panel (05/23/2015 1:35 AM PDT) + + + + + + | Component | Value | Ref Range | Performed | Pathologist | | | | | At | Signature | + + + + + + | Na | 140Comment: Testing | 135 - 143 | EXTERNAL | | | | performed at [facility];[address] | mmol/L | LAB | | | | [address];[place] | | | | | | [address] | | | | + + + + + + | K | 3.9Comment: Testing | 3.5 - 4.9 | EXTERNAL | | | | performed at [facility];[address] | mmol/L | LAB | | | | [address];[place] | | | | | | [address] | | | | + + + + + + | Cl | 108Comment: Testing | 99 - 109 mmol/L | EXTERNAL | | | | performed at [facility];[address] | | LAB | | | | [address];[place] | | | | | | [address] | | | | + + + + + + | CO2 | 25Comment: Testing | 23 - 32 mmol/L | EXTERNAL | | | | performed at [facility];[address] | | LAB | | | | [address];[place] | | | | | | [address] | | | | + + + + + + | Anion Gap | 11Comment: Testing | 5 - 20 mmol/L | EXTERNAL | | | | performed at [facility];[address] | | LAB | | | | [address];[place] | | | | | | [address] | | | | + + + + + + | Glucose, | 106 (H)Comment: Testing | 65 - 99 mg/dL | EXTERNAL | | | Fasting | performed at [facility];[address] | | LAB | | | | [address];[place] | | | | | | [address] | | | | + + + + + + | BUN | 14Comment: Testing | 8 - 25 mg/dL | EXTERNAL | | | | performed at [facility];[address] | | LAB | | | | [address];[place] | | | | | | [address] | | | | + + + + + + | Creatinine | 0.89Comment: Testing | 0.70 - 1.30 | EXTERNAL | | | | performed at [facility];[address] | mg/dL | LAB | | | | [address];[place] | | | | | | [address] | | | | + + + + + + | BUN/Creatin | 16Comment: Testing | | EXTERNAL | | | ine Ratio | performed at [facility];[address] | | LAB | | | | [address];[place] | | | | | | [address] | | | | + + + + + + | Calcium | 7.6 (L)Comment: Testing | 8.5 - 10.5 | EXTERNAL | | | | performed at [facility];[address] | mg/dL | LAB | | | | [address];[place] | | | | | | [address] | | | | + + + + + + | Protein, | 7.5Comment: Testing | 6.3 - 8.2 g/dL | EXTERNAL | | | Total | performed at [facility];[address] | | LAB | | | | [address];[place] | | | | | | [address] | | | | + + + + + + | Albumin | 3.1 (L)Comment: Testing | 3.6 - 5.0 g/dL | EXTERNAL | | | | performed at [facility];[address] | | LAB | | | | [address];[place] | | | | | | [address] | | | | + + + + + + | Globulin | 4.4Comment: Testing | 1.3 - 4.9 g/dL | EXTERNAL | | | | performed at [facility];[address] | | LAB | | | | [address];[place] | | | | | | [address] | | | | + + + + + + | A/G Ratio | 0.7 (L)Comment: Testing | 1.0 - 2.4 | EXTERNAL | | | | performed at [facility];[address] | | LAB | | | | [address];[place] | | | | | | [address] | | | | + + + + + + | Bilirubin | 1.4Comment: Testing | 0.1 - 1.5 mg/dL | EXTERNAL | | | Total | performed at [facility];[address] | | LAB | | | | [address];[place] | | | | | | [address] | | | | + + + + + + | ALP, | 152 (H)Comment: Testing | 35 - 115 U/L | EXTERNAL | | | External | performed at [facility];[address] | | LAB | | | | [address];[place] | | | | | | [address] | | | | + + + + + + | AST | 485 (H)Comment: Testing | 10 - 45 U/L | EXTERNAL | | | | performed at [facility];[address] | | LAB | | | | [address];[place] | | | | | | [address] | | | | + + + + + + | ALT | 339 (H)Comment: Testing | 10 - 65 U/L | EXTERNAL | | | | performed at [facility];[address] | | LAB | | | | [address];[place] | | | | | | [address] | | | | + + + [...] | | | | | | at [facility];[address] [place] [address] | | | | | | [facility];[place] [address] | | | | + + + [...] + +---------+ + + US Abdomen Limited (05/23/2015 12:28 AM PDT) + + | Specimen | + + | | + + + + + | Impressions | Performed At | + + + | 1. Liver is slightly enlarged and shows no focal nodules. | | | Appropriate portal venous flow. Normal gallbladder. No stones. | | | RADIA Electronically signed by Kaiser Perez MD on May 23 2015 | | | 1:03AM Referring Provider Line: [phone] ID: [id number] | | + + + + + + | Narrative | Performed At | + + + | EXAM: ABDOMEN ULTRASOUND LIMITED, RU EXAM DATE: 05/23/2015 | | | 12:28 AM. CLINICAL HISTORY: Abdominal pain. COMPARISON: | | | 08/19/2013. TECHNIQUE: Real-time scanning was performed with | | | static images obtained. FINDINGS: Liver: Liver slightly large | | | otherwise appears unremarkable. Liver is 18.6 cm longitudinally. Main | | | portal vein flow: Hepatopetal. Gallbladder: Normal. No stones, | | | wall thickening, or sonographic Card's sign. Biliary System: CBD | | | measures 7.1 mm. No intrahepatic or extrahepatic ductal dilatation. | | | Other: Pancreas not well seen because of gas. No free abdominal | | | fluid. | | + + + + + | Procedure Note | + + | Melquiades, Rad Conversion - 06/25/2019 3:36 AM PDT EXAM:ABDOMEN ULTRASOUND LIMITED, RUQ | | EXAM DATE: 05/23/2015 12:28 AM. CLINICAL HISTORY: Abdominal pain. COMPARISON: 08/19/2013. | | TECHNIQUE: Real-time scanning was performed with static images obtained. | | FINDINGS:Liver: Liver slightly large otherwise appears unremarkable. Liver is 18.6 cm | | longitudinally. Main portal vein flow: Hepatopetal. Gallbladder: Normal. No stones, wall | | thickening, or sonographic Card's sign. Biliary System: CBD measures 7.1 mm. No | | intrahepatic or extrahepatic ductal dilatation. Other: Pancreas not well seen because of | | gas. No free abdominal fluid. IMPRESSION: 1. Liver is slightly enlarged and shows no | | focal nodules. Appropriate portal venous flow. Normal gallbladder. No stones. RADIA | | Electronically signed by Kaiser Perez MD on May 23 2015 1:03AM Referring Provider Line: | | [phone] ID: [id number] | |FINDINGS: | |Liver: Liver slightly large otherwise appears unremarkable. Liver is 18.6 cm longitudinally . Main portal vein flow: Hepatopetal. | | | |Gallbladder: Normal. No stones, wall thickening, or sonographic Card's sign. | | | |Biliary System: CBD measures 7.1 mm. No intrahepatic or extrahepatic ductal dilatation. | | | |Other: Pancreas not well seen because of gas. No free abdominal fluid. | | | |IMPRESSION: | | | |1. Liver is slightly enlarged and shows no focal nodules. Appropriate portal venous flow. N ormal gallbladder. No stones. | | | |RADIA | | | | | | Electronically signed by Kaiser Perez MD on May 23 2015 1:03AM Referring Provider Line: [phone] ID: [id number] | + + ECG 12 lead (05/22/2015 10:12 PM PDT) + + + + + + | Component | Value | Ref Range | Performed | Pathologist | | | | | At | Signature | + + + + + + | DIAGNOSIS: | Normal sinus | | EXTERNAL | | | | rhythmNormal ECGWhen | | LAB | | | | compared with ECG of | | | | | | 31-OCT-2014 08:18,No | | | | | | significant change was | | | | | | foundThis ECG contains | | | | | | Unconfirmed | | | | | | Interpretation | | | | | | Statements. See ED | | | | | | Record for Physician | | | | | | Interpretation. | | | | | | Confirmed by MUSE READ | | | | | | ONLY, -COMPUTER ([id number]), | | | | | | editorial writer Layla Paul | | | | | | (25) on 05/23/2015 | | | | | | 1:19:54 AM | | | | + + + + + + + + | Specimen | + + | | + + + + + | Narrative | Performed At | + + + | Historically converted procedure from [facility] Epic environment | EXTERNAL LAB | + + + + +---------+ + + | Performing | Address | City/State/Zipcode | Phone Number | | Organization | | | | + +---------+ + + | EXTERNAL LAB | | | | + +---------+ + + XR Chest 2 Vws (05/22/2015 1:25 AM PDT) + + | Specimen | + + | | + + + + + | Narrative | Performed At | + + + | This is a non-reportable procedure without a radiologist report and | | | is used for image storage only | | + + + + + | Procedure Note | + + | Amaury Arnett - 06/25/2019 3:36 AM PDT This is a non-reportable procedure | | without a radiologist report and isused for image storage only | + + CT Abdomen Pelvis w Contrast (05/22/2015 1:25 AM PDT) + + | Specimen | + + | | + + + + + | Narrative | Performed At | + + + | This is a non-reportable procedure without a radiologist report and | | | is used for image storage only | | + + + + + | Procedure Note | + + | Amaury Arnett - 06/25/2019 3:36 AM PDT This is a non-reportable procedure | | without a radiologist report and isused for image storage only | + + Misc Lab Referral (05/22/2015 1:03 AM PDT) + + + + + + | Component | Value | Ref Range | Performed | Pathologist | | | | | At | Signature | + + + + + + | TEST | RSTATE TREP | | EXTERNAL | | | INFORMATION | CONFIRMATIONComment: | | LAB | | | | Testing performed at | | | | | | [facility], [address] [facility] | | | | | | [place] | | | | | | [address] | | | | + + + + + + | Miscellaneo | SEE BELOWComment: | | EXTERNAL | | | us Lab Test | REFERENCE TEST TO WASH | | LAB | | | | STATETEST | | | | | | RESULT/FLAG | | | | | | | | | | | | REFERENCE_RANGETEST | | | | | | NAME TREP | | | | | | CONFIRMATIONRESULT | | | | | | SEE BELOW A | | | | | | TEST DESCRIPTION: | | | | | | TREPONEMAL EIA, | | | | | | TREPONEMAL IGG RESULT: | | | | | | REACTIVE | | | | | | TEST DESCRIPTION: | | | | | | RPR, REAGIN AB RESULT: | | | | | | REACTIVE | | | | | | TITER: | | | | | | 1:8 IF | | | | | | CLINICALLY INDICATED, | | | | | | PLEASE SUBMIT A SECOND | | | | | | SAMPLE IN 2-4 WEEKS | | | | | | FOR SYPHILIS SPECIMENS | | | | | | THAT ARE NON-REACTIVE | | | | | | FOR RPR AND EIA, OR | | | | | | INDETERMINATE FOR TP-PA. | | | | | | REFERENCE RANGE IS | | | | | | NON-REACTIVETesting | | | | | | performed at [place] | | | | | | [facility] | | | | | | Laboratory, [address] | | | | | [address], [facility] | | | | | | [address] | | | | + + + + + + + + | Specimen | + + | | + + + +---------+ + + | Performing | Address | City/State/Zipcode | Phone Number | | Organization | | | | + +---------+ + + | EXTERNAL LAB | | | | + +---------+ + + HIV RNA, quantitative, PCR (05/22/2015 1:03 AM PDT) + + + + + + | Component | Value | Ref Range | Performed | Pathologist | | | | | At | Signature | + + + + + + | HIV-1 VIRAL | 5.5 (A)Comment: Testing | Log copies/mL | EXTERNAL | | | RESULT | performed at [facility], [address] | | LAB | | | (REF) | [address] | | | | | | [place] [address] | | | | + + + + + + | HIV-1 VIRAL | [id number] (A)Comment: | Copies/mL | EXTERNAL | | | LOAD | Testing performed at | | LAB | | | RESULT | [facility], [address] | | | | | | [place] | | | | | | [address] | | | | + + + + + + | HIV-1 VIRAL | SEE BELOWComment: | | EXTERNAL | | | LOAD | REPORTABLE RANGE HIV-1 | | LAB | | | COMMENT | RNA 1.3 TO 7.0 LOG | | | | | | COPIES/ML (20 TO | | | | | | 10,000,000COPIES/ML.)THI | | | | | | S ASSAY WAS PERFORMED | | | | | | USING THE FDA APPROVED | | | | | | KATHARINE | | | | | | COBASAMPLIPREP/DARLEEN | | | | | | TAQMAN HIV 1 TEST.THIS | | | | | | TEST IS INTENDED FOR USE | | | | | | IN CONJUNCTION WITH | | | | | | OTHER LABORATORYMARKERS | | | | | | A PROGNOSTIC | | | | | | INDICATOR FOR PATIENTS | | | | | | WITH HIV 1 INFECTION.IT | | | | | | MAY ALSO BE USED TO AID | | | | | | IN THE ASSESSMENT OF | | | | | | VIRAL RESPONSE | | | | | | TOANTIRETROVIRAL | | | | | | TREATMENT MEASURED BY | | | | | | CHANGES IN PLASMA HIV 1 | | | | | | RNALEVELS. A THREE FOLD | | | | | | (0.5 LOG) CHANGE IN | | | | | | COPIES/MLS IS | | | | | | USUALLYCONSIDERED TO BE | | | | | | CLINICALLY | | | | | | SIGNIFICANT.Testing | | | | | | performed at [facility], [address] | | | | | | [place] | | | | | | [place] [address] | | | | + + + + + + + + | Specimen | + + | | + + + +---------+ + + | Performing | Address | City/State/Zipcode | Phone Number | | Organization | | | | + +---------+ + + | EXTERNAL LAB | | | | + +---------+ + + Rapid Plasma ReagTawana pavon (05/22/2015 1:03 AM PDT) + + + + + + | Component | Value | Ref Range | Performed | Pathologist | | | | | At | Signature | + + + + + + | RPR TITER | Comment: * 1:4 | | EXTERNAL | | | | [LTD1]Reference Range: | | LAB | | | | <1:1NOTE NEW | | | | | | REFERENCE RANGEThis is | | | | | | a REPORTABLE DISEASE | | | | | | which may requiresample | | | | | | submission to the State | | | | | | HealthDepartment. | | | | | | [facility] complies | | | | | | with state lawsby | | | | | | reporting these results | | | | | | to state departmentsof | | | | | | health and submitting | | | | | | samples whenapplicable. | | | | | | It is the responsibility | | | | | | of anyreferring | | | | | | laboratory to follow | | | | | | applicable localand | | | | | | state reporting | | | | | | requirements.The State | | | | | | Health Lab test results | | | | | | will follow, | | | | | | ifadditional testing is | | | | | | performed.Testing | | | | | | performed by [facility], [address] | | | | | | [place] [address] | | | | | | Testing performed at | | | | | | [facility], [address] [facility] | | | | | | [place] | | | | | | [address] | | | | + + + [...] +---------+ + + CD4 T Cell Panel (05/22/2015 1:03 AM PDT) + + + + + + | Component | Value | Ref Range | Performed | Pathologist | | | | | At | Signature | + + + + + + | Source | BLOODComment: Testing | | EXTERNAL | | | | performed by [facility] | | LAB | | | | [place] [address] | | | | + + + + + + | WBC | 3.9Comment: Testing | 3.8 - 11.0 K/uL | EXTERNAL | | | | performed at [facility] | | LAB | | | | [facility], | | | | | | [address] [place] [address] [place] | | | | | | [address] | | | | + + + + + + | Lymphocytes | 40.4Comment: Testing | 15.0 - 48.0 % | EXTERNAL | | | Manual | performed at [facility] | | LAB | | | | [facility], | | | | | | [address], [place] | | | | | | [address] | | | | + + + + + + | Absolute | 1.60Comment: Testing | 1.00 - 3.90 | EXTERNAL | | | Lymphocytes | performed at [facility] | K/uL | LAB | | | | [facility], | | | | | | [address], [place] | | | | | | [address] | | | | + + + + + + | CD4- | 9.9 (L)Comment: | 30.0 - 65.0 % | EXTERNAL | | | | ===NOTIFICATION | | LAB | | | | REQUIRED, REPORT SENT TO | | | | | | THE STATE | | | | | | HEALTHDEPARTMENT===Testi | | | | | | ng performed at [facility] | | | | | | [facility], | | | | | | [address], [place] | | | | | | [address] | | | | + + + + + + | Absolute | 158 (L)Comment: | 490 - 1400 /uL | EXTERNAL | | | CD4 (Zachary | ===NOTIFICATION | | LAB | | | T) Cells | REQUIRED, REPORT SENT TO | | | | | | THE STATE | | | | | | HEALTHDEPARTMENT===Testi | | | | | | ng performed at [facility] | | | | | | [facility], | | | | | | [address], [place] | | | | | | [address] | | | | + + + + + + | CD4 NOTE 2 | SEE BELOWComment: | | EXTERNAL | | | | NORMAL RANGES BASED ON | | LAB | | | | WHOLE BLOOD.RESULT IS A | | | | | | SINGLE TEST PARAMETER | | | | | | WHICH MAY BE INFLUENCED | | | | | | BY TRANSPORTTIMES, | | | | | | THERAPY, AND ASSOCIATED | | | | | | DISORDERS. MORE VALID | | | | | | DATA INCLUDE CD3,CD19, | | | | | | CD4, CD8, AND CD4/CD8 | | | | | | RATIO.THIS TEST WAS | | | | | | DEVELOPED AND ITS | | | | | | PERFORMANCE | | | | | | CHARACTERISTICS | | | | | | DETERMINEDBY [facility] | | | | | | [facility] | | | | | [facility]. IT HAS NOT BEEN | | | | | | CLEARED ORAPPROVED BY | | | | | | THE [place] FOOD AND DRUG | | | | | | ADMINISTRATION. THE FDA | | | | | | HASDETERMINED THAT SUCH | | | | | | CLEARANCE OR APPROVAL IS | | | | | | NOT NECESSARY.THIS TEST | | | | | | IS USED FOR CLINICAL | | | | | | PURPOSES IN MANY | | | | | | LABORATORIES, AND | | | | | | ISNECESSARY FOR STANDARD | | | | | | MEDICAL CARE. IT SHOULD | | | | | | NOT BE REGARDED | | | | | | ASINVESTIGATIONAL OR FOR | | | | | | RESEARCH. THIS | | | | | | LABORATORY IS CERTIFIED | | | | | | UNDERTHE CLINICAL | | | | | | LABORATORY IMPROVEMENT | | | | | | AMENDMENTS OF 1987 | | | | | | ("CLIA") ASQUALIFIED TO | | | | | | PERFORM HIGH COMPLEXITY | | | | | | CLINICAL TESTING.Testing | | | | | | performed at [facility] | | | | | | [facility], | | | | | | [address], [facility] | | | | | | [address] | | | | + + + [...] + | Diagnosis | + + | Acute pancreatitis, unspecified pancreatitis type | + + | HIV (human immunodeficiency virus infection) (HCC) Asymptomatic human | | immunodeficiency virus (HIV) infection status | + + | Noncompliance with medication regimen Personal history of noncompliance with medical | | treatment, presenting hazards to health | + + documented in this encounter [...]
--- OUTSIDE RECORDS SUMMARY | ~2020-06-05 | XMS | Encounter Summary ---
Demographics + + + | Address | [address] | | | [place] [address] | + + + | Home Phone [...] Author + + + | Author | [facility] | + + + | Organization | [facility] | + + + | Address | Unknown | + + + | Phone | Unavailable | + + + Support + + +---------+ + | Name | Relationship | Address | Phone | + + +---------+ + | Skyler Todd | ECON | Unknown | | + + +---------+ + Care Team Providers + +------+ + | Care Stock Turner Name | Role | Phone | + [...] | [address] | Reena Carrasco [place], | | | | | Mailcode: [id number] | [place] [address] | | | | | [facility] | [phone] | | | | | [place], [place] | | | | | | [address] | | | | | | [phone] | | | +--------+ + + + [...]
--- OUTSIDE RECORDS SUMMARY | ~2020-06-05 | XMS | Encounter Summary ---
Demographics + + + | Address | [address] | | | [place] [address] | + + + | Home Phone | | + + + | Preferred Language | Unknown | + + + | Marital Status | Single | + + + | Cheondoism Affiliation | Unknown | + + + | Race | Unknown | + + + | Ethnic Group | Unknown | + + + Author + + + | Author | [facility] | | | and [place] | + + + | Organization | [facility] | | | and [place] [...] Team Providers + +------+ + | Care Land Planner Name | Role | Phone | + +------+ + | Jerome Young MD | PCP | | + +------+ + Encounter Details +--------+ + + + + | Date | Type | Department | Care Team | Description | +--------+ + + + + | 10/11/ | Hospital | [facility] | Conversion | Ocular herpes; HIV | | 2014 | Encounter | [facility] | Transaction, | (human | | | | CLINICAL DECISION | Provider Unknown | immunodeficiency | | | | [address] | | virus infection) | | | | [place], [place] | (Fax) | ([facility]); Bone pain; | | | | [address] | Zita Enriquez, | Poor compliance with | | | | [phone] | MD | medication; | | | | | | Syphilis | +--------+ + + + + Social [...] documented as of this encounter Progress Notes Uriel Marquez, Provider Unknown - 10/11/2014 3:33 PM PSTFormatting of this note m ight be different from the original. Case Management by Palak Alicea RN at 10/11/14 1533 Author: Palak Alicea RN Service: (none) Author Type: Registered Nurse Filed: 10/11/14 1534 Date of Service: 10/11/141532 Status: Signed Tromper: Palak Alicea RN (Registered Nurse) Discharge planning: CM spoke with the pt s RN regarding discharge needs. Per their report they did not identify financial, transportation, support or home safety needs at this time. I encouraged them to contact their RN to enter a CM consult as needs arise. onver brettjose Marquez, Provider Unknown - 10/11/2014 3:31 PM PST Progress Notes by Carlitos Schulte RN at 10/11/14 1531 Author: Carlitos Schulte RN Service: (none) Author Type: Registered Nurse Filed: 10/11/14 153 Date of Service: 10/11/141530 Status: Signed Tromper: Carlitos Schulte RN (Registered Nurse) DC info reviewed and all questions answered. docume nted in this encounter H&P Notes Gonzalez Justin NP - 10/11/2014 2:40 PM PST H&P by WANDA Win at 10/11/14 1440 Author: WANDA Win Service: Radiology Author Type: Advanced Registered Nurse Practitioner Filed: 10/11/14 1452 Date of Service: 10/11/141439 Status: Signed Tromper: WANDA Win (Advanced Registered Nurse Practitioner) [facility] Service: Radiology Pre-Procedure History & Physical DIAGNOSIS: HIV, syphilis INDICATION: Same, evaluation for neurosyphilis PROCEDURE: Lumbar puncture under fluoroscopic guidance History Obtained From: patient, chart review HISTORY OF PRESENT ILLNESS The patient is a 49 y.o. male with significant past medical history of HIV, syphilis, and o cular herpes who presents for lumbar puncture under fluoroscopic guidance. Patient with pos itive syphilis test recently. Patient has history of poor compliance with HIV medications. Patient was evaluated by Dr. Enriquez, ID, and was subsequently referred here for LP for eval uation of CSF to exclude neurosyphilis. REVIEW OF SYSTEMS Review of Systems Constitutional: Negative for fever and chills. HENT: Negative for trouble swallowing, neck pain and neck stiffness. Eyes: Positive for visual disturbance (blurred). Respiratory: Negative for cough and shortness of breath. Cardiovascular: Negative for chest pain and leg swelling. Gastrointestinal: Negative for nausea, vomiting and diarrhea. Genitourinary: Negative for dysuria and difficulty urinating. Neurological: Negative for seizures, syncope, speech difficulty and headaches. Past Medical History Diagnosis Date HIV (human immunodeficiency virus infection) Muscle spasms of neck Hyperlipidemia Cholelithiasis COPD (chronic obstructive pulmonary disease) Chronic mastoiditis Multiple joint pain 05/14/2013 Other chronic pain Past Surgical History Procedure Laterality Date Tonsillectomy Fistula repair Tympanoplasty No Known Allergies No current facility-administered medications on file prior to encounter. Current Outpatient Prescriptions on File Prior to Encounter Medication Sig Dispense Refill albuterol (PROVENTIL) (2.5 MG/3ML) 0.083% nebulizer solution inhale contents of 1 vial in nebulizer every 4 hours if needed for shortness of breath 90 mL PRN Darunavir Ethanolate 800 MG TABS Take 800 mg by mouth daily. 120 tablet 3 emtricitabine-tenofovir (TRUVADA) 200-300 MG per tablet Take 1 tablet by mouth daily. 120 tablet 3 etodolac (LODINE XL) 500 MG 24 hr tablet Take 1 tablet by mouth daily. 30 tablet 0 fluticasone (FLOVENT HFA) 220 MCG/ACT inhaler Inhale 1 puff into the lungs 2 (two) time s daily. ritonavir (NORVIR) 100 MG TABS tablet Take 100 mg by mouth daily. 120 tablet 3 HYDROcodone-acetaminophen (NORCO) 5-325 MG per tablet Take 1 tablet by mouth every 6 (s ix) hours as needed for Pain. 30 tablet 0 History reviewed. No pertinent family history. History Smoking status Current Every Day Smoker -- 1.00 packs/day for 30 years Types: Cigarettes Smokeless tobacco Never Used History Alcohol Use No History Drug Use Yes Special: Marijuana Comment: medical card PHYSICAL EXAM Vital Signs: BP 132/93 | Pulse 100 | Temp(Src) 98.3 F (36.8 C) (Temporal) | Resp 18 | Ht 1.727 m (5' 8") | Wt 88.905 kg (196 lb) | BMI 29.81 kg/m2 | SpO2 98% Physical Exam Constitutional: He is oriented to person, place, and time. No distress. HENT: Head: Normocephalic and atraumatic. Neck: Normal range of motion. Neck supple. No JVD present. Cardiovascular: Normal rate, regular rhythm and intact distal pulses. Pulmonary/Chest: Effort normal. No respiratory distress. He exhibits no tenderness. Musculoskeletal: He exhibits no edema. Neurological: He is alert and oriented to person, place, and time. Skin: Skin is warm and dry. He is not diaphoretic. No pallor. Psychiatric: He has a normal mood and affect. His behavior is normal. Vitals reviewed. DATA CBC: Lab Results Component Value Date WBC 7.5 09/27/2014 RBC 5.31 09/27/2014 HGB 13.5 09/27/2014 HCT 42.4 09/27/2014 MCV 80.0 09/27/2014 MCH 25.4* 09/27/2014 MCHC 31.8* 09/27/2014 RDW 47.3 09/27/2014 PLT 258 09/27/2014 MPV 8.1 09/27/2014 DIFFTYPE MANUAL 09/27/2014 PT/INR: Lab Results Component Value Date INR 1.0 10/11/2014 PROBLEM LIST Patient Active Problem List Diagnosis HIV (human immunodeficiency virus infection) Multiple joint pain Depression with anxiety Myalgia Chronic back pain Abdominal pain, right upper quadrant Nausea with vomiting Obesity, unspecified Hypomagnesemia ASSESSMENT & PLAN 1. Patient is a 49 y.o. male with above specified procedure planned. 2. Procedure options, risks, benefits and alternatives reviewed with patient who express( es) understanding. Any and all questions were answered to their satisfaction. Primary Care Physician: WANDA Connelly 10/11/2014 documented in th is encounter Procedure Notes Gonzalez Justin NP - 10/11/2014 2:37 PM PST Procedures by WANDA Win at 10/11/14 1437 Author: WANDA Win Service: Radiology Author Type: Advanced Registered Nurse Practitioner Filed: 10/11/14 1440 Date of Service: 10/11/14 1437 Status: Signed Tromper: WANDA Wni (Camryn Registered Nurse Lamberto) Pre-procedure Diagnoses: 1. HIV (human immunodeficiency virus infection) ([facility]) [V08] 2. Syphilis [097.9] Post-procedure Diagnoses: 1. HIV (human immunodeficiency virus infection) (HCC) [V08] 2. Syphilis [097.9] Procedures: 1. LUMBAR PUNCTURE [PRO88 (Custom)] Diagnostic lumbar puncture under fluoroscopic guidance performed 12 mL of clear, colorless fluid obtained Opening pressure: 22 cmH2O Closing pressure: 10 cmH2O Fluid sent to lab for indicating testing Patient tolerated well, no immediate post procedure complications encountered. See dictation for full details WANDA WIN 10/11/2014 2:39 PM documented in th is encounter Plan of Treatment Not on filedocumented as of this encounter Procedures + +--------+ + + + | Procedure Name | Priori | Date/Time | Associated Diagnosis | Comments | | | ty | | | | + +--------+ + + + | CRYPTOCOCCUS AB, | Timed | 10/11/2014 | | Results for this | | TOTAL, CSF | | 2:35 PM | | procedure are in the | | | | PST | | results section. | + +--------+ + + + | CULTURE, CSF, SMEAR | Timed | 10/11/2014 | | Results for this | | | | 2:35 PM | | procedure are in the | | | | PST | | results section. | + +--------+ + + + | CELL COUNT WITH | Timed | 10/11/2014 | | Results for this | | DIFFERENTIAL, CSF | | 2:35 PM | | procedure are in the | | | | PST | | results section. | + +--------+ + + + | VDRL, CSF | Timed | 10/11/2014 | | Results for this | | | | 2:35 PM | | procedure are in the | | | | PST | | results section. | + +--------+ + + + | PROTEIN, CSF | Timed | 10/11/2014 | | Results for this | | | | 2:35 PM | | procedure are in the | | | | PST | | results section. | + +--------+ + + + | GLUCOSE, CSF | Timed | 10/11/2014 | | Results for this | | | | 2:35 PM | | procedure are in the | | | | PST | | results section. | + +--------+ + + + | PROTIME INR | Routin | 10/11/2014 | | Results for this | | | e | 1:57 PM | | procedure are in the | | | | PST | | results section. | + +--------+ + + + documented in this encounter Results Cryptococcus Ab, Total, CSF (10/11/2014 2:35 PM PST) + + | Specimen | + + | | + + + + + | Narrative | Performed At | + + + | CRYPTOCOCCUS AB, CSF <1:1 REFERENCE | EXTERNAL LAB | | RANGE: <1:1 UNIT: NOT REPORTED REFERENCE RANGE: <1:1 INTERPRETIVE | | | CRITERIA: <1:1 ANTIBODY NOT DETECTED | | | > OR = 1:1 ANTIBODY DETECTED DIAGNOSIS OF INFECTIONS | | | OF THE CENTRAL NERVOUS SYSTEM CAN BE ACCOMPLISHED BY DEMONSTRATING | | | THE PRESENCE OF INTRATHECALLY-PRODUCED SPECIFIC ANTIBODY. HOWEVER, | | | INTERPRETATION OF RESULTS IS COMPLICATED BY LOW ANTIBODY LEVELS FOUND | | | IN CSF, PASSIVE TRANSFER OF ANTIBODY FROM BLOOD, AND CONTAMINATION | | | VIA BLOODY TAPS. THIS ASSAY WAS DEVELOPED AND ITS PERFORMANCE | | | CHARACTERISTICS HAVE BEEN DETERMINED BY [employer]. IT HAS NOT | | | BEEN CLEARED OR APPROVED BY THE U.S. FOOD AND DRUG ADMINISTRATION. | | | THE FDA HAS DETERMINED THAT SUCH CLEARANCE OR APPROVAL IS NOT | | | NECESSARY. PERFORMANCE CHARACTERISTICS REFER TO THE ANALYTICAL | | | PERFORMANCE OF THE TEST. Testing performed at [facility], | | | [id number] [address] | | + + + + +---------+ + + | Performing | Address | City/State/Zipcode | Phone Number | | Organization | | | | + +---------+ + + | EXTERNAL LAB | | | | + +---------+ + + Culture, CSF, Smear (10/11/2014 2:35 PM PST) + + | Specimen | + + | Cerebrospinal fluid | | sample (specimen) | + + + + + | Narrative | Performed At | + + + | Specimen Description CEREBROSPINAL FLUID GRAM | EXTERNAL LAB | | STAIN WBC'S SEEN | | | NO ORGANISMS SEEN | | | Testing performed at [facility];[address] | | | [facility] [address] CULTURE | | | NO GROWTH | | | Testing performed at [facility], [address], [place], [place] | | | [address] | | + + + + +---------+ + + | Performing | Address | City/State/Zipcode | Phone Number | | Organization | | | | + +---------+ + + | EXTERNAL LAB | | | | + +---------+ + + Cell Count with Differential, CSF (10/11/2014 2:35 PM PST) + + | Specimen | + + | Cerebrospinal fluid | | sample (specimen) | + + + + + | Narrative | Performed At | + + + | COLOR COLORLESS | EXTERNAL LAB | | Testing performed at [facility];[address] [place] [address];[place] [address] APPEARANCE | | | CLEAR Testing performed at | | | [facility];[address] [place] [address];[place] [address] Tube Number, CSF | | | 3 Testing performed at [facility] | | | [address];[place] [address] CSF RBC | | | 0 Testing performed at [facility];[place], [place] | | | [address] CSF WBC 51 | | | High Panic CALLED TO JUDY SUGGS AT 1708 BY MB READ BACK RESULTS | | | VERIFIED Testing performed at [facility];[address] [place] [address];[place] [address] | | | NEUTROPHILS 2 Testing | | | performed at [facility] [address] LYMPHOCYTES | | | 97 Testing performed at | | | [facility];[address] [place] [address];[place] [address] MONOCYTES/MACROPHAGES | | | 1 Testing performed at [facility] | | | [address];[place] [address] CELLS COUNTED | | | 100 Testing performed at [facility];[address] [place] [address];[place], [place] | | | [address] | | + + + + +---------+ + + | Performing | Address | City/State/Zipcode | Phone Number | | Organization | | | | + +---------+ + + | EXTERNAL LAB | | | | + +---------+ + + VDRL, CSF (10/11/2014 2:35 PM PST) + + | Specimen | + + | Cerebrospinal fluid | | sample (specimen) | + + + + + | Narrative | Performed At | + + + | VDRL Quant, CSF REACTIVE Abnormal | EXTERNAL LAB | | VERIFIED BY REPEAT ANALYSIS. [facility], [address] | | | [place] [address] | | + + + + +---------+ + + | Performing | Address | City/State/Zipcode | Phone Number | | Organization | | | | + +---------+ + + | EXTERNAL LAB | | | | + +---------+ + + Protein, CSF (10/11/2014 2:35 PM PST) + + | Specimen | + + | Cerebrospinal fluid | | sample (specimen) | + + + + + | Narrative | Performed At | + + + | CSF TOTAL PROTEIN 92 High | EXTERNAL LAB | | Testing performed at [facility];[address] [facility] [facility];[place] [address] | | + + + + +---------+ + + | Performing | Address | City/State/Zipcode | Phone Number | | Organization | | | | + +---------+ + + | EXTERNAL LAB | | | | + +---------+ + + Glucose, CSF (10/11/2014 2:35 PM PST) + + | Specimen | + + | Cerebrospinal fluid | | sample (specimen) | + + + + + | Narrative | Performed At | + + + | CSF GLUCOSE 55 | EXTERNAL LAB | | Testing performed at [facility];[address] [facility];[place] [address] | | + + + + +---------+ + + | Performing | Address | City/State/Zipcode | Phone Number | | Organization | | | | + +---------+ + + | EXTERNAL LAB | | | | + +---------+ + + Protime INR (10/11/2014 1:57 PM PST) + + + + + [...] | | | | | performed at [facility] | | | | | | [address];[place], [place] | | | | | | [address] | | | | + + + [...] + | Diagnosis | + + | 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
--- OUTSIDE RECORDS SUMMARY | ~2020-06-05 | XMS | Encounter Summary ---
Demographics + + + | Address | [address] | | | [place] [address] | + + + | Home Phone | | + + + | Preferred Language | Unknown | + + + | Marital Status | Single | + + + | Zoroastrianism Affiliation | Unknown | + + + | Race | White | + + + | Ethnic Group | Not or | + + + Author + + + | Author | [facility] | + + + | Organization | [facility] | + + + | Address | Unknown | + + + | Phone | Unavailable | + + + Support + + +---------+ + | Name | Relationship | Address | Phone | + + +---------+ + | Skyler Todd | ECON | Unknown | | + + +---------+ + Care Team Providers + +------+ + | Care Rail Car Repairer Name | Role | Phone | + +------+ + | Jerome Young MD | PCP | | + +------+ + Encounter Details +--------+ + + + + | Date | Type | Department | Care Team | Description | +--------+ + + + + | 12/31/ | Abstract | Internal Medicine | aFustina Henao MD | | | 2011 | | Clinic at [facility] [address] | [address] | | | | | [address] | [address]ras[address] [place], | | | | | Mail[address]: [id number] | [place] [address] | | | | | [facility] | [phone] | | | | | [place], [place] | | | | | | [address] | | | | | | [phone] | | | +--------+ + + + [...] +--------+ + + + | HEPATITIS C AB | Routin | 08/27/2011 | | Results for this | | | e | | | procedure are in the | | | | | | results section. | + +--------+ + + + | CD4 (T CELL), BLOOD | Routin | 08/27/2011 | | Results for this | | | e | | | procedure are in the | | | | | | results section. | + +--------+ + + + | HEPATITIS C AB | Routin | 11/27/2010 | | Results for this | | | e | | | procedure are in the | | | | | | results section. | + +--------+ + + + documented in this encounter Results CD4 (T CELL), BLOOD (08/27/2011) + +-------+ + + + | Component | Value | Ref Range | Performed | Pathologist | | | | | At | Signature | + +-------+ + + + | CD4 % (T | 10 | | NON [facility] | | | HELPER | | | LAB | | | CELLS) | | | | | + +-------+ + + + | CD4 (T | 321 | /cu mm | NON [facility] | [...] | | + +---------+ + + HEPATITIS C AB (08/27/2011) + +-------+ + + + | Component | Value | Ref Range | Performed | Pathologist | | | | | At | Signature | + +-------+ + + + | HIV ULTRA | <20 | | NON [facility] | | | QUANT | | | LAB | | + +-------+ + + + + + | Specimen | + + | | + + + +---------+ + + | Performing | Address | City/State/Zipcode | Phone Number | | Organization | | | | + +---------+ + + | NON [facility] LAB | | | | + +---------+ + + HEPATITIS C AB (11/27/2010) + +-------+ + + + | Component | Value | Ref Range | Performed | Pathologist | | | | | At | Signature | + +-------+ + + + | HEP C AB | Neg | | NON [facility] | | | [...]
--- OUTSIDE RECORDS SUMMARY | ~2020-06-05 | XMS | Encounter Summary ---
Demographics + + + | Address | [address] | | | [place] [address] | + + + | Home Phone [...] Author + + + | Author | [facility] | + + + | Organization | [facility] | + + + | Address | Unknown | + + + | Phone | Unavailable | + + + Support + + +---------+ + | Name | Relationship | Address | Phone | + + +---------+ + | Skyler Todd | ECON | Unknown | | + + +---------+ + Care Team Providers + +------+ + | Care Wireless Consultant Name | Role | Phone | [...] | | | [address] | [facility], | | | | | Mailcode: [id number] | [place] [address] | | | | | [facility] | [phone] | | | | | [place], [place] | | | | | | [address] | | | | | | [phone] | | | +--------+--------+ + + + [...]
--- OUTSIDE RECORDS SUMMARY | ~2020-06-05 | XMS | Encounter Summary ---
Demographics + + + | Address | [address] | | | [place] [address] | + + + | Home Phone | | + + + | Preferred Language | Unknown | + + + | Marital Status | Single | + + + | Jew Affiliation | Unknown | + + + [...] Team Providers + +------+ + | Care Dicer Operator Name | Role | Phone | + +------+ + | Faustina Henao MD | PCP | | + +------+ + Reason for Visit + + + | Reason | Comments | + + + | New patient | | | consultation | | + + + Encounter Details +--------+---------+ + + + | Date | Type | Department | Care Team | Description | +--------+---------+ + + + | 09/04/ | Office | Internal Medicine | Faustina Henao MD | HIV (human | | 2009 | Visit | [facility] | [address] | immunodeficiency | | | | [address] | Reena Carrasco [place], | virus infection) | | | | Mailcode: [id number] | [place] [address] | ([facility]) (Primary Dx); | | | | [facility] | [phone] | Herpes zoster | | | | [place], [place] | | without mention of | | | | [address] | | complication; | | | | [phone] | | Hearing loss in | | | | | | right ear; | | | | | | Unspecified asthma; | | | | | | Hip pain, bilateral | +--------+---------+ + + + Social History [...] + + + | Blood Pressure | 144/88 | 09/04/2010 10:51 AM | | | | | PDT | | + + + + + | Pulse | 114 | 09/04/2010 10:51 AM | | | | | PDT | | + + + + + | Temperature | 36.7 C (98 F) | 09/04/2010 10:51 AM | | | | | [...] | 94.7 kg (208 lb 11.2 | 09/04/2010 10:51 AM | | | | oz) | PDT | | + + + + + | Height | 175.3 cm (5' 9") | 09/04/2010 10:51 AM | | | | | PDT | | + + + + + | Body Mass Index | 30.82 | 09/04/2010 10:51 AM | | | | | PDT | | + + + + + documented in this encounter Patient Instructions Patient Instructions Faustina Henao MD - 09/04/2010 11:45 AM PDT20 minute walk daily.Electro nically signed by Faustina Henao MD at 09/04/2010 11:45 AM PDT documented in this encounter Progress Notes Brittney Armenta - 09/04/2010 3:49 PM PDT Addended by: BRITTNEY ARMENTA on: 09/04/2010 Modules accepted: Orders austina Henao MD - 1:50 PM PDT Internal Medicine Clinic/HIV Clinic Identifying Data: Pavan is a 44 y.o. HIV infected male who presents to [facility] care. History of Present Illness: Pavan reports he was first diagnosed with HIV-infection in 29 04 in [place], when he presented for routine screening . A previous HIV test was negative ab out one year earlier. At the time of diagnosis,Pavan was clinically asymptomatic. He did no t undergo follow up care until he was hospitalized in 2007 with multi-dermatomal herpes zost er outbreak and "pneumonia." His CD4 armando was 2 at the time of this admission. Pavan has n ever experienced an AIDS defining illness. He denies any history of oral candidiasis, oral h airy leukoplakia, recurrent herpes simplex disease, recurrent pneumonias, or recurrent skin infections. He has had recurrent zoster outbreaks in the same dermatome region about once a year. Pavan reports a history of MSM as a potential HIV exposure in the past. Pavan's antiretro viral history is as follows: He started ARV therapy after his hospitalization in 2007 with T ruvada and once daily boosted darunavir. On this regimen, he states his viral load dropped to undetectable with rise in CD4 count to 289. He states his current provider in [facility], recently recommended he change his boosted darunavir to twice daily. Pavan notes, however , that he does occasionally miss his evening dose of his PIs. Currently, Pavan states he has recently recovered from a recent hospitalization in [place], [place] for a bronchitis and asthma exacerbation. He completed a course of antibiotics and is currently using inhaled steroids and bronchodilator. Pavan complains of bilateral hip pain. He states this is related to a 30 lb weight gain in the past year. He states he is ve ry inactive and remains indoors most days. He does note some symptoms of depression which he feels is related to living in [facility]. He denies any problems with fevers, chills or nig ht sweats. He denies symptoms of headache, visual disturbances, difficulty swallowing, chest discomfort, productive cough, abdominal pain, cramping, change in bowel habits, dysuria or focal neurologic symptoms. Active Medications as of 09/04/2010: emtricitabine-tenofovir (TRUVADA) 200-300 mg Oral Tablet Take 1 Tab by mouth once daily. ritonavir 100 mg Oral Capsule Take 100 mg by mouth two times daily. SULFAMETHOXAZOLE/TRIMETHOPRIM (BACTRIM DS ORAL) Take 1 Tab by mouth once daily. hydrocodone-acetaminophen (VICODIN) 5-500 mg Oral Tablet Take 1 Tab by mouth every six hour s as needed. Not to exceed 8 tablets per any 24 hour period. (Not to exceed 4000 mg of aceta minophen from all products per 24 hour period.) clonazepam 1 mg Oral Tablet Take 1 mg by mouth once daily as needed. ALBUTEROL INHL Inhale 2 Puffs every four hours as needed. FLUTICASONE PROPIONATE (FLOVENT INHL) Inhale 2 Puffs two times daily. darunavir (PREZISTA) 400 mg Oral Tablet Take 2 Tabs by mouth once daily with breakfast. Dwayne e with food and Norvir (ritonavir). 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 He has no known history of tuberculosis exposure. History Social History Marital Status: Single Spouse Name: N/A Number of Children: 0 Years of Education: 14 Occupational History disability None Social History Main Topics Tobacco Use: Yes -- 1.0 packs/day for 26 years Alcohol Use: No Drug Use: Yes marijuana, prior crystal meth, no IVDU Sexually Active: Yes -- Male partner(s) Other Topics Concern Not on file Social History Narrative No narrative on file No family history on file. Immunization History Administered Date(s) Administered Influenza (Flu) 3+ yrs 09/04/2010 [id number] 09/04/2010 Pavan was born in [place], [place]. He has lived in [place], [place] and [facility]. He chase es in [facility] with his partner and a dog. Physicial Examination: BP 144/88 | Pulse 114 | Temp (Src) 36.7 C (98 F) (Oral) | Ht 1.753 m (5' 9") | Wt 94.66 6 kg (208 lb 11.2 oz) | BMI 30.82 kg/(m^2) General: He is an alert, overweight man in [facility]. Skin: No rash or petechiae. Lymph Nodes: No significant cervical, supraclavicular, axillary or inguinal adenopathy silas reciated. HEENT: EOMI. PERRL. Conjunctivae not injected. Sclerae anicteric. Fundi appear normal. Tympanic membranes absent on right at site of prior surgery. Left with small amount of whi te material in canall. Oropharynx: No oral hairy leukoplakia, thrush or exudate. No eviden ce of exudates. Mucous membranes are moist. Dentition poor. Neck: Supple. Thyroid normal. Back: No CVA or spinal tenderness. Lungs: Clear to auscultation and percussion bilaterally. Cardiac: Regular rate and rhythm. Normal S1, S2, no murmur,gallop. Abdomen: Soft, nontender and nondistented. No hepatosplenomegaly or masses. Normoactive bowel sounds. Genitourinary: Normal circumcised penis without lesions or urethral discharge. Testicles w ithout mass, swelling or tenderness. Rectal: No kristie-anal lesions. Extremities: No clubbing, cyanosis or edema. Neurologic: Alert and oriented x 3. Cranial nerves 2 through 12 intact, other than hearin g loss on right . Motor strength 5/5 in all motor groups. Sensation to fine touch and vibr atory sense intact throughout. He has normal gkdpvb-vl-wkkj exam. Normal gait. DTRs are 2+ and equal bilaterally. Labs: No outside labs available Assessment and Plan: V08AF HIV (human immunodeficiency virus infection) (primary encounter diagnosis) Comment: Gentleman with HIV, Stage B3. Appears to have had an excellent response to ARV th . He has had some difficulty with adherence since changing form a once daily regimen w ith boosted darunavir to a twice daily regimen. I would recommend he resume the once daily regimen. We discussed the importance of strict adherence in order to obtain maximal benefit from the medicatons and prevent the development of drug-resistant virus. Will assess for t oxicity of regimen with CMP and lipids. He is currently taking PCP prophylaxis. It is unclear if he still needs this. Would repea t CD4 count today before discontinuing. Will also screen for viral hepatitis, STIs and lily min D deficiency. He is interested in flu shot and Pneumovax today. Plan: STAFF TO GIVE: INFLUENZA VIRUS VACC (TRI-VALENT SPLIT PF 45MCG/0.5ML IM), 3+ YRS, 0.5 ML VIAL, STAFF TO GIVE: PNEUMOVAX 23 >1YRS, darunavir (PREZISTA) 400 mg Oral Tablet, CBC, WITH DIFFERENTIAL, COMPLETE METABOLIC SET (NA,K,CL,CO2,BUN,CREAT,GLUC,CA,AST,ALT,BILI TOTAL,ALK PHOS,ALB,PROT TOTAL), CD4 (T CELL), BLOOD, HIV QUANTITATIVE PCR, PLASMA, RPR SERUM, GC / CHLAMYDIA AMP.DET, URINE, VITAMIN D, 25-HYDROXY, SERUM, LIPID SET (TRIG, T CHOL, HDL, CALC LDL), HEPATITIS A AB SCREEN, SERUM, HEPATITIS B SURFACE AB QUAL, SERUM, HEPATITIS B SURFACE AG, SERUM, HEPATITIS C AB, SERUM F/u in 2-3 weeks 053.9 Herpes zoster without mention of complication Comment: Recurrent episodes. Could consider chronic prophylaxis. Will await results of to day's CD4 count. Plan: 389.9CV Hearing loss in right ear Comment: due to prior childhood surgery. Plan: 493.90 Unspecified asthma Comment: Lungs appear clear today. Is using flovent and albuterol Plan: STAFF TO GIVE: INFLUENZA VIRUS VACC (TRI-VALENT SPLIT PF 45MCG/0.5ML IM), 3+ YRS, 0.5 ML VIAL, STAFF TO GIVE: PNEUMOVAX 23 >1YRS 719.45T Hip pain, bilateral Comment: Likely related to weight gain. FROM at hips. Recommend daily walks. Plan: monitor FAUSTINA NAVARRO MD Dimitrios Suarez - 09/04/2010 10:52 AM PDTRoomed patient for Physician visit. Blood pressure, pulse , temperature, weight , tobacco history, alcohol use, drug use, sexual history, and allergie s reviewed with patient. JOLIE Plunkett documented in this encou nter Plan of Treatment Not on filedocumented as of this encounter Results HEPATITIS C AB, SERUM (09/04/2010 12:09 PM PDT) + + + + + + | Component | Value | Ref Range | Performed | Pathologist | | | | | At | Signature | + + + + + + | HEPATITIS C | Negative | Negative | [facility] | | | AB | | | [facility] | | | | | | LABORATORY | | + + + + + + + + | Specimen | + + | Blood - Blood | + + + + + | Narrative | Performed At | + + + | [facility] | [facility] | | [place] [address] [facility] | REGIONAL | | [place] [address] | LABORATORY | + + + + + + + + | Performing | Address | City/State/Zipcode | Phone Number | | Organization | | | | + + + + + | [facility] | [address] | [place] [address] | | | LABORATORY | | | | + + + + + HEPATITIS B SURFACE AG, SERUM (09/04/2010 12:09 PM PDT) + + + + + + | Component | Value | Ref Range | Performed | Pathologist | | | | | At | Signature | + + + + + + | HEPATITIS B | Negative | Negative | [facility] | | | SURFACE | | | REGIONAL | | | AG, SERUM | | | LABORATORY | | + + + + + + + + | Specimen | + + | Blood - Blood | + + + + + | Narrative | Performed At | + + + | [facility] | [facility] | | [place] [address] [facility] | REGIONAL | | [place] [address] | LABORATORY | + + + + + + + + | Performing | Address | City/State/Zipcode | Phone Number | | Organization | | | | + + + + + | [facility] | [address] | [place] [address] | | | LABORATORY | | | [...] B | POSITIVE (A) | Negative | [facility] | | | SURFACE AB | | | REGIONAL | | | QUAL, SERUM | | | LABORATORY | | + + + + + + + + | Specimen | + + | Blood - Blood | + + + + + | Narrative | Performed At | + + + | [facility] | [place] | | [place] [address] | REGIONAL | | [place] [address] | LABORATORY | + + + + + + + + | Performing | Address | City/State/Zipcode | Phone Number | | Organization | | | | + + + + + | [facility] | [address] | [place] [address] | | | LABORATORY | | | | + + + + + HEPATITIS A AB SCREEN, SERUM (09/04/2010 12:09 PM PDT) + + + + + + | Component | Value | Ref Range | Performed | Pathologist | | | | | At | Signature | + + + + + + | HEPATITIS A | Negative | Negative | [facility] | | | AB TOTAL | | | REGIONAL | | | | | | LABORATORY | | + + + + + + + + | Specimen | + + | Blood - Blood | + + + + + | Narrative | Performed At | + + + | [facility] | [facility] | | [place] [address] [address] [facility] | [facility] | | [place] [address] | LABORATORY | + + + + + + + + | Performing | Address | City/State/Zipcode | Phone Number | | Organization | | | | + + + + + | [facility] | [address] | [place] [address] | | | LABORATORY | | | [...] | + + + + + | [facility] | [address] | [place] [address] | | | PATHOLOGY | [address] [...] [place], | | | | | | [place] [address] | | | | | | [phone] | | | | | | | | | | | | [email or web address], | | | | | | Loyda [...] + + | [facility] | [address] | [place], [place] | | | [facility] | | [address] | | + + + + + [...] At | + + + | [facility] | [facility] | | [place] [address] | REGIONAL | | [place] [address] | LABORATORY | + + + + + + + + | Performing | Address | City/State/Zipcode | Phone Number | | Organization | | | | + + + + + | [facility] | [address] | [place] [address] | | | LABORATORY | | | | + + + + + HIV QUANTITATIVE PCR, PLASMA (09/04/2010 12:09 PM PDT) + + + + + + | Component | Value | Ref Range | Performed | Pathologist | | | | | At | Signature | + + + + + + | HIV-QNT PCR | 54 | copies/mL | [facility] | | | | | | [facility] | | | | | | LABS | | + + + + + + | HIV QUANT | Plasma | | [facility] | | | SPECIMEN | | | [...] + + + + | [facility] | [facility] | [place] [address] | | | GENETICS LABS | [address] | | | | | [address]VE[address] [...] | CD4 (T Cell), whole blood | [facility] | | | DEPARTMENT OF | | | PATHOLOGY | + + + + + + + + | Performing | Address | City/State/Zipcode | Phone Number | | Organization | | | | + + + + + | [facility] DEPARTMENT OF | [address] | [place] [address] | | | PATHOLOGY | [address] [...] | | | DEPARTMENT | | | [facility] | | | OF | | | [...] DEPARTMENT OF | [address] | [place] [address] | | | PATHOLOGY | [address] [...] | + + + + + | [facility] | [address] | [place] [address] | | | PATHOLOGY | [address] | | | + + + + + documented in this encounter Visit Diagnoses + + | Diagnosis | + + | HIV (human immunodeficiency virus infection) (HCC) - Primary Asymptomatic human | | immunodeficiency virus (HIV) infection status | + + | Herpes zoster without mention of complication | + + | Hearing loss in right ear Unspecified hearing loss | + + | Unspecified asthma(493.90) Unspecified asthma | + + | Hip pain, bilateral Pain in joint, pelvic region and thigh | + + documented in this encounter
--- OUTSIDE RECORDS SUMMARY | ~2020-06-05 | XMS | Encounter Summary ---
Demographics + + + | Address | [address] | | | [place] [address] | + + + | Home Phone | | + + + | Preferred Language | Unknown | + + + | Marital Status | Single | + + + | Jainism Affiliation | Unknown | + + + | Race | Unknown | + + + | Ethnic Group | Unknown | + + + Author + + + | Author | [facility] | | | and [place] | + + + | Organization | [facility] | | | and [place] [...] Team Providers + +------+ + | Care Survey Supervisor Name | Role | Phone | + +------+ + PCP | Unavailable | + +------+ + Encounter Details +--------+ + + + + | Date | Type | Department | Care Team | Description | +--------+ + + + + | 06/12/ | [facility] | [facility] | Bryson Brady, | | | 2009 - | Encounter | [facility] | [address] | | | | | CENTER [address] | [place] | | | | | [place] | [address] | | | 2009 | | [address] | | | | | | [phone] | | | +--------+ + + + [...]
--- OUTSIDE RECORDS SUMMARY | ~2020-06-05 | XMS | Encounter Summary ---
Demographics + + + | Address | [address] | | | [place] [address] | + + + | Home Phone [...] + + + | Author | [facility] | + + + | Organization | [facility] | + + + | Address | Unknown | + + + | Phone | Unavailable | + + + Support + + +---------+ + | Name | Relationship | Address | Phone | + + +---------+ + | Skyler Todd | ECON | Unknown | | + + +---------+ + Care Team Providers + +------+ + | Care Academic Manager Name | Role | Phone | + +------+ + | Jerome Young MD | PCP | | + +------+ + Encounter Details +--------+ + + + + | Date | Type | Department | Care Team | Description | +--------+ + + + + | 07/01/ | [facility] | Internal Medicine | Faustina Henao MD | | | 2010 | | [facility] | [address] | | | | | [address] | [address] [place], | | | | | Mailcode: [id number] | [place] [address] | | | | | [facility] | [phone] | | | | | [place], [place] | | | | | | [address] | | | | | | [phone] | | | +--------+ + + + [...]
--- OUTSIDE RECORDS SUMMARY | ~2020-06-05 | XMS | Encounter Summary ---
Demographics + + + | Address | [address] | | | [place] [address] | + + + | Home Phone [...] + + + | Author | [facility] | + + + | Organization | [facility] | + + + | Address | Unknown | + + + | Phone | Unavailable | + + + Support + + +---------+ + | Name | Relationship | Address | Phone | + + +---------+ + | Skyler Todd | ECON | Unknown | | + + +---------+ + Care Team Providers + +------+ + | Care Facility Examiner Name | Role | Phone | + +------+ + | Jerome [place] MD | PCP | | + +------+ + Reason for Visit + + + | Reason | Comments | + + + | Has shown side | le pt-medication side effects | | effects from | | | medication | | + + + Encounter Details +--------+ + + + + | Date | Type | Department | Care Team | Description | +--------+ + + + + | 02/01/ | Telephone | Internal Medicine | Faustina Henao MD | Has shown side | | 2010 | | [facility] | [address] | effects from | | | | [address] | [address] [place], | medication (young | | | | Mailcode: [id number] | [place] [address] | pt-medication side | | | | [facility] | [phone] | effects) | | | | [place], [place] | | | | | | [address] | | | | | | [phone] | | | +--------+ + + + [...]
--- OUTSIDE RECORDS SUMMARY | ~2020-06-05 | XMS | Encounter Summary ---
Demographics + + + | Address | [address] | | | [place] [address] | + + + | Home Phone | | + + + | Preferred Language | Unknown | + + + | Marital Status | Single | + + + | [employer]ar[employer] Affiliation | Unknown | + + + | Race | Unknown | + + + | Ethnic Group | Unknown | + + + Author + + + | Author | [facility] | | | and [place] | + + + | Organization | [facility] | | | and [...] Team Providers + +------+ + | Care City Distribution Clerk Name | Role | Phone | + +------+ + | Jerome Young MD | PCP | | + +------+ + Encounter Details +--------+ + + + + | Date | Type | Department | Care Team | Description | +--------+ + + + + | 04/23/ | Emergency | [facility] | Juventino Morley, | Headache | | 2012 - | | [facility] | MD Myke [address]AUD[address] | | | | | EMERGENCY CENTER | [place] [address] | | | | | [address] | [phone] | | | 2012 | | [place], [place] | | | | | | [address] | | | | | | [phone] | | | +--------+ + + + [...] documented as of this encounter ED Notes Conversion Transaction, Provider Unknown - 04/24/2013 6:37 AM PDTFormatting of this note m ight be different from the original. ED Notes by Jc Don RN at 04/24/13636 Author: Jc Don RN Service: (none) Author Type: Registered Nurse Filed: 04/24/13636 Date of Service: 04/24/13636 Status: Signed Correctional Supervising Cook: Jc Don RN (Registered Nurse) All patient belongings collected by patient prior to discharge, pt has verified all belongi ngs in their custody at time of discharge. Patient has received and stated understanding of discharge instructions. Jc Don RN 04/24/13636 onver brett Transaction, Provider Unknown - 04/24/2013 3:10 AM PDT ED Notes by Jc Don RN at 04/24/13309 Author: Jc Don RN Service: (none) Author Type: Registered Nurse Filed: 04/24/13310 Date of Service: 04/24/13309 Status: Signed Correctional Supervising Cook: Jc Don RN (Registered Nurse) Dr. Morley at bedside explaining plan of care to pt. Pt to be discharged at 6AM. No further testing or medications to be given at this time. Pt will be allowed to rest in ED until [address] Morley. Jc Don RN 04/24/13310 onver brett Transaction, Provider Unknown - 04/24/2013 12:02 AM PDT ED Notes by Jeison Carrera RN at 04/24/131 Author: Jeison Carrera RN Service: (none) Author Type: Registered Nurse Filed: 04/24/13 0003 Date of Service: 04/24/131 Status: Signed Correctional Supervising Cook: Jeison Carrera RN (Registered Nurse) Pt resting quietly , 02 sat 98 % Pt appears to be sleeping. Jeison Carrera RN 04/24/13 0003 immJuventino richter MD - 04/23/2013 9:54 PM PDTFormatting of this note might be different from the o riginal. ED Provider Notes by Juventino Morley MD at 04/23/132153 Author: Juventino Morley MD Service: (none) Author Type: Physician Filed: 04/27/13 1642 Date of Service: 04/23/132153 Status: Signed Correctional Supervising Cook: Juventino Morley MD (Physician) [facility] Department of Emergency Medicine 04/23/2013 9:54 PM History of Present Illness Patient Identification Pavan Anderson is a 47 y.o. male. Patient information was obtained from patient. History/Exam limitations: none. Patient presented to the Emergency Department by: Car Chief Complaint Chief Complaint Patient presents with Headache "I moved into a new apartment today, and since then I've had a headache on the left side, and I just don't feel good." Pt presents to the ED with headache. Pt states that he woke up with the headache this morni ng. Pain is located at the left frontal which extends to the posterior head. Additionally mercado s associated photophobia and "squiggly lines" in vision. No exacerbating or relieving factor s. Took Excedrin 4:00PM without relief. Pt had similar headache 1 week ago and was seen at [facility] for [facility]. He was given IM medication which improved headache. Pt states he had a hist ory of migraines in his 20's and has not had them since. No neck pain. No nausea or vomiting . No fevers. No numbness or tingling. No double vision. Pt is on therapy for HIV but states he has not been taking his medications like supposed to for the last week. "I missed a dose or two". Pt is currently moving into a new apartment. Past Medical History Diagnosis Date HIV (human immunodeficiency virus infection) Muscle spasms of neck Past Surgical History Procedure Date Tonsillectomy Fistula repair Prior to Admission medications Medication Sig Start Date End Date Taking? Authorizing Provider ALBUTEROL IN Inhale into the lungs. Historical Provider alprazolam (XANAX XR) 2 MG 24 hr tablet Take 2 mg by mouth every morning. Historical Pro vider aspirin 81 MG chewable tablet Take 81 mg by mouth daily. Historical Provider carisoprodol (SOMA) 350 MG tablet Take 350 mg by mouth 4 (four) times daily as needed. H istorical Provider emtricitabine-tenofovir (TRUVADA) 200-300 MG per tablet Take 1 tablet by mouth daily. Hi storical Provider fluticasone (FLOVENT HFA) 220 MCG/ACT inhaler Inhale 1 puff into the lungs 2 (two) times da laverne. Historical Provider HYDROcodone-acetaminophen (NORCO) 7.5-325 MG per tablet Take 1 tablet by mouth every 6 (six ) hours as needed. Historical Provider LORazepam (ATIVAN) 1 MG tablet Take 1 mg by mouth every 6 (six) hours as needed. Histori caryn Provider ritonavir (NORVIR) 100 MG capsule Take by mouth 2 (two) times daily. Historical Provide r No Known Allergies History Social History Marital Status: Single Spouse Name: N/A Number of Children: N/A Years of Education: N/A Occupational History Not on file. Social History Main Topics Smoking status: Current Everyday Smoker -- 1.0 packs/day Smokeless tobacco: Never Used Alcohol Use: No Drug Use: Yes Special: Marijuana Sexually Active: Yes -- Male partner(s) Other Topics Concern Not on file Social History Narrative No narrative on file History reviewed. No pertinent family history. Review of Systems Constitutional: Negative for: fever or chills Eyes: Negative for: double vision Positive for: photophobia and 'squiggly lines" in vision Cardiovascular: Negative for: chest pain Respiratory: Negative for: cough or shortness of breath Gastrointestinal: Negative for: nausea or vomiting Musculoskeletal: Negative for: neck pain Skin: Negative for: rash or lesion Neuro and psych: Negative for: fainting or dizziness Positive for: headache All other systems were reviewed and are subjectively reported as negative. Physical Exam BP 158/92 | Pulse 114 | Temp 97.8 F (36.6 C) (Oral) | Resp 20 | Ht 1.753 m (5' 9") | Wt 90.719 kg (200 lb) | BMI 29.53 kg/m2 | SpO2 99% Vitals: Hypertensive and tachycardic, otherwise normal Pulse Oximetry Interpretation: Normal General: Alert, no active distress Eyes: Normal inspection, pupils equal and round, non-icteric ENT: Ears normal Nose normal Pharynx normal Neck: Normal inspection Supple Full ROM Cardiovascular: Normal rate and rhythm, no extra sounds Respiratory: No respiratory distress or wheezing, lungs are clear Abdomen: Soft, non-tender, non-distended Back: Normal inspection Skin: Color normal Warm and dry Extremities: ZAMORA, NVID Neuro: No gross motor/sensory deficit, no neuro deficits Medical Decision Making and Emergency Department Course ED Department Course 9:54 PM. Pt presents to the ED with headache that he woke up with this morning. Has associa leobardo photophobia and "squiggly lines" in vision. Pt is on therapy for HIV however he has not been taking his medications like he was supposed to for the last week. Examination was unre markable. I will order CMP, CBC, and CT head with and without contrast. Will also treat his pain. I am concerned about meningitis, SAH, temporal arteritis and other structural or infec tious causes of headache. I will need to determine the CD4 count to assess for risk. 10:35 AM. Phenergan 25 mg IV, Benadryl 50 mg IV, and Toradol 30 mg IV given. 1000mL IV bolu s started. 11:20 AM. Reviewed labs. Mild hyperglycemia. Otherwise normal. CD4 count calculated to be 1 400 based on CBC with Diff. 12:01 AM. Reevaluated pt. Pt states is not feeling any better. Pain was 9/10 on arrival i ED and now at 8/10 per pt. 12:40 AM. Phenergan 12.5 mg IV given. 1:22 AM. Pt complaining of heart burn. Pepcid 20 mg IV given. 1:50 AM. Magnesium sulfate 2 g IV started. 2:00 AM. Pt recheck. Discussed with pt plan for d/c. Pt reports headache substantially imp roved and would like to sleep. Pt states he has nobody to give him a ride home tonight as juan francisco tavares is in [place]. Pt drove himself here but cannot drive home due to the medications giv en here. I will consult with hospitalist at this time. 2:23 AM. Discussed pt's case with Dr. Morelos, hospitalist, who does not think that the pt m eets criteria for admission. Pt will stay here until he is able to safely drive home. Will d ischarge pt at 6:00 AM. No further testing or medications will be given at this time. Records Reviewed Nursing Notes Medical Records Reviewed Laboratory Evaluation Results Procedure Component Value Ref Range Date/Time Complete Metabolic Panel [[id number]] (Abnormal) Collected:04/23/132219 Order Status:Completed Updated:04/23/132249 Specimen Information:Blood SODIUM 142 135 - 143 mmol/L POTASSIUM 4.0 3.5 - 4.9 mmol/L CHLORIDE 107 99 - 109 mmol/L CO2 24 23 - 32 mmol/L ANION GAP AGAP 15 5 - 20 mmol/L GLUCOSE 130 (H) 65 - 99 mg/dL BUN 21 8 - 25 mg/dL CREATININE 1.13 0.70 - 1.30 mg/dL BUN/CREAT 18 CALCIUM 8.9 8.5 - 10.2 mg/dL TOTAL PROTEIN 7.9 6.3 - 8.2 g/dL Albumin 3.9 3.6 - 5.0 g/dL GLOBULIN 4.0 1.3 - 4.9 g/dL A/G 1.0 1.0 - 2.4 TBIL 0.2 0.1 - 1.5 mg/dL ALK PHOS 85 35 - 115 U/L AST 16 10 - 45 U/L ALT 28 10 - 65 U/L EGFR >60 >60 mL/min/1.73m2 CBC w/auto diff (reflex to manual) [[id number]] Collected:04/23/132219 Order Status:Completed Updated:04/23/132229 Specimen Information:Blood WBC 7.2 3.8 - 11.0 K/uL RBC 5.08 4.20 - 5.70 M/uL HGB 15.6 13.2 - 17.0 g/dL HCT 46.4 39.0 - 50.0 % MCV 91.5 80.0 - 100.0 fl MCH 30.8 27.0 - 34.0 pg MCHC 33.6 32.0 - 35.5 g/dL RDW SD 40.7 37 - 53 fl PLT 234 150 - 400 K/uL MPV 8.9 fl DIFF TYPE AUTOMATED NEUTROPHILS 47.0 40 - 75 % LYMPHOCYTES 41.0 15 - 48 % MONOCYTES 9.1 0 - 12 % EOSINOPHILS 2.2 0 - 7 % BASOPHILS 0.7 0 - 2 % NEUTROPHILS ABS 3.4 1.9 - 7.4 K/uL LYMPHOCYTES ABS 3.0 1.0 - 3.9 K/uL MONOCYTES ABS 0.7 0 - 0.8 K/uL EOSINOPHILS ABS 0.2 0 - 0.5 K/uL BASOPHILS ABS 0.0 0 - 0.1 K/uL Radiology and EKG Evaluation Imaging Results CT head with and without contrast (Final result) Result time:04/23/132353 Final result by Rad Results In Melquiades (04/23/13 23:54:24) Narrative: HISTORY: Headache. HIV. TECHNIQUE: Helically obtained axial 5-mm CT sections through the head, both before and after the intra venous administration of 100 mL Isovue-300. COMPARISON: None. FINDINGS: No intracranial infarct, hemorrhage, mass, hydrocephalus, or significant white matter abnor mality is found. The orbital structures appear normal. Tiny incidental mucus retention cysts are seen within the right maxillary sinus, numbering two, the largest measuring 13 mm. Ther e is evidence of previous bilateral partial mastoid resection. A small mass or effusion is p resent within residual mastoid air cells.. No fracture or worrisome bone lesion is found. IMPRESSION: 1. No intracranial abnormality is found. 2. Evidence of previous bilateral mastoidectomy, with a small left mastoid effusion presen t in residual left mastoid air cells. Diagnosis Final diagnosis Headache Disposition: ED Disposition Orders Discharge Condition at discharge: Stable Follow-up Information Follow up With Details Comments Contact Info Jerome Young MD [facility] [id number] Additional Documentation Procedures Attending Note: Documentation assistance provided by Caitlyn Rodriguez (Scribe). Information recorded by the scribe has been reviewed and validated by me. Manuel williamson with its contents. MD Juventino Briscoe MD 04/27/13 1642 documented in this e ncounter Plan of Treatment Not on filedocumented as of this encounter Procedures + +--------+ + + + | Procedure Name | Priori | Date/Time | Associated Diagnosis | Comments | | | ty | | | | + +--------+ + + + | CT HEAD W WO | Routin | 04/23/2013 | | Results for this | | CONTRAST | e | 11:23 PM | | procedure are in the | | | | PDT | | results section. | + +--------+ + + + documented in this encounter Results CT Head w wo Contrast (04/23/2013 11:23 PM PDT) + + | Specimen | + + | | + + + + + | Narrative | Performed At | + + + | HISTORY: Headache. HIV. TECHNIQUE: Helically obtained axial | | | 5-mm CT sections through the head, both before and after the | | | intravenous administration of 100 mL Isovue-300. COMPARISON: | | | None. FINDINGS: No intracranial infarct, hemorrhage, mass, | | | hydrocephalus, or significant white matter abnormality is found. The | | | orbital structures appear normal. Tiny incidental mucus retention | | | cysts are seen within the right maxillary sinus, numbering two, the | | | largest measuring 13 mm. There is evidence of previous bilateral | | | partial mastoid resection. A small mass or effusion is present within | | | residual mastoid air cells.. No fracture or worrisome bone lesion is | | | found. IMPRESSION: 1. No intracranial abnormality is found. | | | 2. Evidence of previous bilateral mastoidectomy, with a small left | | | mastoid effusion present in residual left mastoid air cells. | | | | | + + + + + | Procedure Note | + + | Melquiades, Rad Conversion - 07/02/2019 5:48 PM PDT HISTORY:Headache. HIV. | | TECHNIQUE:Helically obtained axial 5-mm CT sections through the head, both before and | | after the intravenous administration of 100 mL Isovue-300. COMPARISON:None. FINDINGS:No | | intracranial infarct, hemorrhage, mass, hydrocephalus, or significant white matter | | abnormality is found. The orbital structures appear normal. Tiny incidental mucus | | retention cysts are seen within the right maxillary sinus, numbering two, the largest | | measuring 13 mm. There is evidence of previous bilateral partial mastoid resection. A | | small mass or effusion is present within residual mastoid air cells.. No fracture or | | worrisome bone lesion is found. IMPRESSION:1. No intracranial abnormality is found. 2. | | Evidence of previous bilateral mastoidectomy, with a small left mastoid effusion | | present in residual left mastoid air cells. | |measuring 13 mm. There is evidence of previous bilateral partial mastoid resection. A small mass or effusion is present within residual mastoid air cells.. No fracture or worrisome viki ne lesion is found. | | | |IMPRESSION: | |1. No intracranial abnormality is found. | | | |2. Evidence of previous bilateral mastoidectomy, with a small left mastoid effusion presen t in residual left mastoid air cells. | | | | | + + documented in this encounter Visit Diagnoses + + | Diagnosis | + + | Headache(784.0) Headache | + + documented in this encounter
--- OUTSIDE RECORDS SUMMARY | ~2020-06-05 | XMS | Encounter Summary ---
Demographics + + + | Address | [address] | | | [place] [address] | + + + | Home Phone | | + + + | Preferred Language | Unknown | + + + | Marital Status | Single | + + + | Jain Affiliation | Unknown | + + + | Race | Unknown | + + + | Ethnic Group | Unknown | + + + Author + + + | Author | [facility] | | | and [place] | + + + | Organization | [facility] | | | and [...] Team Providers + +------+ + | Care Prepper Name | Role | Phone | + +------+ + | Jerome Young MD | PCP | | + +------+ + Encounter Details +--------+ + + + + | Date | Type | Department | Care Team | Description | +--------+ + + + + | 08/18/ | Emergency | [facility] | Himmel, Peter D, | Mesenteric adenitis; | | 2013 | | [facility] | [address] | Abdominal pain, | | | | EMERGENCY CENTER | [place] [address] | acute; Nausea & | | | | [address] | [phone] | vomiting; Diarrhea | | | | [place], [place] | | | | | | [address] | | | | | | [phone] | | | +--------+ + + + [...] ED Notes Conversion Transaction, Provider Unknown - 08/18/2013 4:55 PM PDTFormatting of this note m ight be different from the original. ED Notes by Kristyn Henning RN at 08/18/131654 Author: Kristyn Henning RN Service: (none) Author Type: Registered Nurse Filed: 08/18/131654 Date of Service: 08/18/131654 Status: Signed World Travel Counselor: Kristyn Henning RN (Registered Nurse) Pt given cup of ice chips at his request although he states he is still sl nauseated Kristyn Henning RN 08/18/131654 onver brett Transaction, Provider Unknown - 08/18/2013 4:55 PM PDT ED Notes by Kristyn Henning RN at 08/18/131654 Author: Kristyn Henning RN Service: (none) Author Type: Registered Nurse Filed: 08/18/131654 Date of Service: 08/18/131654 Status: Signed World Travel Counselor: Kristyn Henning RN (Registered Nurse) Family at bedside. Kristyn Henning RN 08/18/131654 onver brett Transaction, Provider Unknown - 08/18/2013 4:55 PM PDT ED Notes by Kristyn Henning RN at 08/18/131654 Author: Kristyn Henning RN Service: (none) Author Type: Registered Nurse Filed: 08/18/131654 Date of Service: 08/18/131654 Status: Signed World Travel Counselor: Kristyn Henning RN (Registered Nurse) Patient is resting comfortably. Kristyn Henning RN 08/18/131654 onver brett Transaction, Provider Unknown - 08/18/2013 4:50 PM PDT ED Notes by Kristyn Henning RN at 08/18/131649 Author: Kristyn Henning RN Service: (none) Author Type: Registered Nurse Filed: 08/18/131650 Date of Service: 08/18/131649 Status: Signed World Travel Counselor: Kristyn Henning RN (Registered Nurse) Pt states he ''forgot'' to do urine spec while in b/r Kristyn Henning RN 08/18/131650 onver brett Transaction, Provider Unknown - 08/18/2013 4:38 PM PDT ED Notes by Luis Carlos Campbell RN at 08/18/131637 Author: Luis Carlos Campbell RN Service: (none) Author Type: Registered Nurse Filed: 08/18/131638 Date of Service: 08/18/131637 Status: Signed World Travel Counselor: Luis Carlos Campbell RN (Registered Nurse) Patient using restroom at this time. Luis Carlos Campbell RN 08/18/13 1639 onver brett Transaction, Provider Unknown - 08/18/2013 3:49 PM PDT ED Notes by Kristyn Henning RN at 08/18/13 154 Author: Kristyn Henning RN Service: (none) Author Type: Registered Nurse Filed: 08/18/13 154 Date of Service: 08/18/131548 Status: Signed World Travel Counselor: Kristyn Henning RN (Registered Nurse) Pt sleeping, resps regular and non laboured. nad Kristyn Henning RN 08/18/13 154 onver brett Transaction, Provider Unknown - 08/18/2013 3:00 PM PDT ED Notes by Kristyn Henning RN at 08/18/13 1500 Author: Kristyn Henning RN Service: (none) Author Type: Registered Nurse Filed: 08/18/13 150 Date of Service: 08/18/13 1500 Status: Signed World Travel Counselor: Kristyn Henning RN (Registered Nurse) Pt woken up to check vs. States he is unable to give urine spec still Kristyn Henning RN 08/18/13 150 onver brett Transaction, Provider Unknown - 08/18/2013 3:00 PM PDT ED Notes by Kristyn Henning RN at 08/18/13 1500 Author: Kristyn Henning RN Service: (none) Author Type: Registered Nurse Filed: 08/18/13 1500 Date of Service: 08/18/13 1500 Status: Signed World Travel Counselor: Kristyn Henning RN (Registered Nurse) Patient is resting comfortably. Kristyn Henning RN 08/18/13 1500 onver brett Transaction, Provider Unknown - 08/18/2013 2:26 PM PDT ED Notes by Kristyn Henning RN at 08/18/131425 Author: Kristyn Henning RN Service: (none) Author Type: Registered Nurse Filed: 08/18/131425 Date of Service: 08/18/131425 Status: Signed World Travel Counselor: Kristyn Henning RN (Registered Nurse) Lab phlebo at bedside drawing blood for cd4 Kristyn Henning RN 08/18/131425 onver brett Transaction, Provider Unknown - 08/18/2013 2:18 PM PDT ED Notes by Kristyn Henning RN at 08/18/131417 Author: Kristyn Henning RN Service: (none) Author Type: Registered Nurse Filed: 08/18/131417 Date of Service: 08/18/131417 Status: Signed World Travel Counselor: Kristyn Henning RN (Registered Nurse) Patient is resting comfortably. Kristyn Henning RN 08/18/131417 onver brett Transaction, Provider Unknown - 08/18/2013 1:31 PM PDT ED Notes by Kristyn Henning RN at 08/18/131330 Author: Kristyn Henning RN Service: (none) Author Type: Registered Nurse Filed: 08/18/131331 Date of Service: 08/18/131330 Status: Signed World Travel Counselor: Kristyn Henning RN (Registered Nurse) States last diarrhea was yesterday and last vomiting 3 days ago. Appears in nad. Call stevenson within reach. Pt aware we need urine spec when he is able to void. Urinal at bedisde Kristyn Henning RN 08/18/131331 onver brett Transaction, Provider Unknown - 08/18/2013 1:04 PM PDT ED Notes by Kristyn Henning RN at 08/18/13 130 Author: Kristyn Henning RN Service: (none) Author Type: Registered Nurse Filed: 08/18/131303 Date of Service: 08/18/131303 Status: Signed World Travel Counselor: Kristyn Henning RN (Registered Nurse) Hector pitt at bedside Kristyn Henning RN 08/18/131303 Ashwin Stewart PA-C - 08/18/2013 12:59 PM PDTFormatting of this note might be different from the orig inal. ED Provider Notes by Ashwin Young PA-C at 08/18/131258 Author: Ashwin Young PA-C Service: (none) Author Type: Physician Gas Treater - Certified Filed: 08/18/132022 Date of Service: 08/18/131258 Status: Addendum World Travel Counselor: Ashwin Young PA-C (Physician Gas Treater - Certified) Related Notes: Cosigned by Juventino Morley MD (Physician) filed at 08/18/132054 Original Note by Ashwin Young PA-C (Physician Gas Treater - Certified) filed at 08/18/132022 Procedures [facility] Department of Emergency Medicine History of Present Illness Patient Identification Pavan Anderson is a 47 y.o. male. Patient information was obtained from patient. History/Exam limitations: none. Patient presented to the Emergency Department by: Car Chief Complaint Chief Complaint Patient presents with Diarrhea The patient complains of diarrhea. Onset of symptoms was 3 days ago, with a unresolved cour se since that time. The symptoms are described to be of moderate to severe in severity. The patient also complains of abdominal cramping. The patient describes the quality and locati on of the symptoms as the following: dull cramping aching pain throughout the abdomen. Care prior to arrival consisted of Imodium, with out relief. Past Medical History Diagnosis Date HIV (human [...] hours as needed. 08/12/13 09/09/13 WANDA Cary ritonavir (NORVIR) 100 MG TABS tablet Take 100 mg by mouth daily. 05/19/13 05/19/14 Zita Enriquez MD No Known Allergies History Social History Marital Status: Significant Other Spouse Name: N/A Number of Children: N/A Years of Education: N/A Occupational History Not on file. Social History Main Topics Smoking status: Current Every Day Smoker -- 1.0 packs/day Smokeless tobacco: Never Used Alcohol Use: No Drug Use: Yes Special: Marijuana medical card Sexually Active: Not Currently -- Male partner(s) Control/ Protection: Condom Other Topics Concern Not on file Social History Narrative No narrative on file No family history on file. Review of Systems Constitutional: Negative for: fever, chills, fatigue, sweats or weight loss Eyes: Negative for: decreased vision or irritated eyes Nose: Negative for: nosebleed Throat: Negative for: mouth sores Cardiovascular/Respiratory: Negative for: chest pain, shortness of breath, cough Gastrointestinal: Negative for: vomiting, black or bloody stools Positive for: abdominal pain, diarrhea, nausea Genitourinary: Negative for: dysuria, hematuria, urinary problems Musculoskeletal: Negative for: myalgias and arthralgias Skin: Negative for: laceration or lesion Neuro and psych: Negative for: fainting, head injury, seizure, trouble walking Endocrine/Heme/Lymph: Negative for: swollen lymph nodes, easy bruising Physical Exam BP 135/90 | Pulse 104 | Temp 97.8 F (36.6 C) (Temporal) | Resp 18 | Ht 1.727 m (5' 8") | Wt 90.719 kg (200 lb) | BMI 30.41 kg/m2 | SpO2 96% Pulse Oximetry interpretation: Normal General: Alert, in no apparent distress Eyes: Normal inspection, pupils equal and round, non-icteric ENT: Ears normal Nose normal Pharynx normal Neck: Normal inspection Supple No lymphadenopathy No meningismus Cardiovascular: Tachycardic and rhythm normal No murmurs Respiratory: Breath sounds normal bilaterally Abdomen: Soft, diffuse tenderness throughout the abdomen however moderate tenderness in the RUQ, distended No guarding or rebound Back: Mild Hypertonicity of the lumbar spine L 2-5 without chronic tissue texture changes. Skin: Color normal Warm and dry No rash Neuro: No motor deficit No sensory deficit Normal gait Medical Decision Making and Emergency Department Course ED Department Course 1258 Examined and spoke to the pt who at this time relates a history of nausea vomiting kenneth rrhea for the past 3 days. He states he has taken copious amounts of Imodium which he states has stopped the diarrhea. However, now her is experiencing a bloating sensation, with cramp ing abdominal pain. I have discussed a differential of C. Diff, gastroenteritis, colitis. I have discussed a plan for CBC, CMP, Amylase, Lipase, CT, Zofran, and Dilaudid. I will re-chaparrobolivar flores after labs and imaging. 1322 CBC normal 1345 Hypocalemia on CMP;Ca 8.1 AST ALT elevated however this can be do to the pt's Anti - r etroviral medications. 1408 CT does show evidence of renal stone and Mesenteric Adenitis. I will discuss the case with GI. Hemalatha Giron 1430 I have discussed the results with the pt and at this time explained to him that I woul d speak with GI. He states that he is still nauseas. I have ordered Phenergan. [address] if Dr. Penny has called she states that she hs put in the page twice. 1545 I have asked if Hemalatha Giron can be repaged [address] have [address] with Dr[address] Penny a this time he does not recommend treating the Mesenteric Adenitis and that it is most likely due to a viral syndrome. I appreciate Dr. Penny and is advice regarding this pt. He also recommends to call ID. [phone] I have discussed the case with Dr. West infectious disease. At this time he agrees wit h Dr. Penny and he will relate the case with his partner Dr. Enriquez. He has requested that t he pt f/u on his regular scheduled apt the following week. 1730 I have discussed the plans for d/c with the pt and at this time he states that he is n o longer in any pain and states that he is feeling better after 2 BM in the ED that were loo se but not watery. He does have a regularly scheduled apt with Dr. Enriquez and will f/u accor dingly. He is non-toxic appearing. I have given him a Rx of Flomaxe in order to help the pt pass the small renal stone. The pt is on a chronic pain contract and no new Rx were given fo r pain. Zofran for nausea. Records Reviewed Nursing notes. Laboratory Evaluation Results Procedure Component Value Ref Range Date/Time T-helper cells (CD4) count [[id number]] Collected:08/18/13 1424 Order Status:Sent Updated:08/18/13 143 Specimen Information:Blood Complete Metabolic Panel [[id number]] (Abnormal) Collected:08/18/13 1315 Order Status:Completed Updated:08/18/13 1346 Specimen Information:Blood SODIUM 139 135 - 143 mmol/L POTASSIUM 3.9 3.5 - 4.9 mmol/L CHLORIDE 104 99 - 109 mmol/L CO2 27 23 - 32 mmol/L ANION GAP AGAP 12 5 - 20 mmol/L GLUCOSE 114 (H) 65 - 99 mg/dL BUN 15 8 - 25 mg/dL CREATININE 0.90 0.70 - 1.30 mg/dL BUN/CREAT 17 CALCIUM 8.1 (L) 8.5 - 10.2 mg/dL TOTAL PROTEIN 7.5 6.3 - 8.2 g/dL Albumin 3.3 (L) 3.6 - 5.0 g/dL GLOBULIN 4.2 1.3 - 4.9 g/dL A/G 0.8 (L) 1.0 - 2.4 TBIL 0.3 0.1 - 1.5 mg/dL ALK PHOS 205 (H) 35 - 115 U/L AST 81 (H) 10 - 45 U/L ALT 144 (H) 10 - 65 U/L EGFR >60 >60 mL/min/1.73m2 Amylase [[id number]] (Abnormal) Collected:08/18/131314 Order Status:Completed Updated:08/18/131342 Specimen Information:Blood AMYLASE 129 (H) 25 - 115 U/L Lipase [[id number]] (Abnormal) Collected:08/18/131314 Order Status:Completed Updated:08/18/131342 Specimen Information:Blood LIPASE 1632 (H) 73 - 393 U/L CBC w Auto Diff [[id number]] Collected:08/18/131314 Order Status:Completed Updated:08/18/131325 Specimen Information:Blood WBC 5.3 3.8 - 11.0 K/uL RBC 4.82 4.20 - 5.70 M/uL HGB 14.0 13.2 - 17.0 g/dL HCT 42.0 39.0 - 50.0 % MCV 87.0 80.0 - 100.0 fl MCH 29.0 27.0 - 34.0 pg MCHC 33.3 32.0 - 35.5 g/dL RDW SD 41.1 37 - 53 fl PLT 172 150 - 400 K/uL MPV 8.4 fl DIFF TYPE AUTOMATED NEUTROPHILS 55.8 40 - 75 % LYMPHOCYTES 34.5 15 - 48 % MONOCYTES 5.1 0 - 12 % EOSINOPHILS 4.5 0 - 7 % BASOPHILS 0.1 0 - 2 % NEUTROPHILS ABS 3.0 1.9 - 7.4 K/uL LYMPHOCYTES ABS 1.8 1.0 - 3.9 K/uL MONOCYTES ABS 0.3 0 - 0.8 K/uL EOSINOPHILS ABS 0.2 0 - 0.5 K/uL BASOPHILS ABS 0.0 0 - 0.1 K/uL Radiology and EKG Evaluation Imaging Results CT abdomen pelvis without IV contrast (Final result) Result time:08/18/13 1403 Final result by Rad Results In Melquiades (08/18/13 14:03:03) Impression: High-grade active or inflammatory lesion is not [...] reter, without upstream hydronephrosis or inflammatory changes Narrative: HISTORY: 47 year-old male with pain TECHNIQUE: CT through the abdomen and pelvis. Performed without the administration of IV co ntrast. Examination performed without enteric contrast. Prior study for comparison: None FINDINGS: Rapid Outsole Stitcher is unremarkable. Lung bases demonstrate some peripheral basilar scarring-but no discrete lesion, effusion or infiltrate. Bones are without aggressive lesion or fracture. Nonaggressive and degenerative changes not uncommon for age. Old rib fractures of the posterior right costal margin such as on image 3 6 series 2-healed. Soft tissue windows of the abdomen reveal a structurally normal liver and spleen to noncont rast technique. The adrenal glands are normal as is the gallbladder, pancreas and Boehler's system. Kidneys without hydronephrosis or inflammatory changes. No calcification or dense lesion in evidence. There are a few punctate calcifications over the distribution of the distal left ureter suc h as on image 69 series 2 and on image 84, near the left ureteral junction. Tracing the uret er itself was not possible due to poor tissue planes but these measure less than 4 mm. Dense stool with a nonobstructive bowel, colon. Appendix is not distinctly seen. No inguinal hernia, no pelvic fluid collection, no ascites and only subthreshold shotty mes enteric and tissue. Pelvis demonstrates no free fluid, no sidewall lymphadenopathy. Normal r ectum and pelvic organs. ED Diagnoses Final diagnoses Mesenteric adenitis Abdominal pain, acute Nausea & vomiting Diarrhea Disposition: ED Disposition Orders Discharge Condition at discharge: Stable Follow-up Information Follow up With Details Comments Contact Info Zita Enriquez MD Schedule an appointment as soon as possible for a visit [address] [facility] [address] [facility] Emergency Department If symptoms worsen [address] [facility] [id number] WANDA [place] Discharge Medications: New Prescriptions ONDANSETRON (ZOFRAN) 4 MG TABLET Take 1 tablet by mouth 3 (three) times daily as needed for Nausea. TAMSULOSIN (FLOMAX) 0.4 MG CAPSULE Take 1 capsule by mouth daily. Administer 30 minutes after the same meal each day. Capsules should be swallowed whole; do not crush, chew, or op en Ashwin Young PA-C 08/18/132022 Ashwin Young PA-C 08/18/132022 immel, Juventino Mccain MD - 08/18/2013 12:59 PM PDT ED Provider Notes by Juventino Morley MD at 08/18/131258 Author: Juventino Morley MD Service: (none) Author Type: Physician Filed: 08/18/132054 Date of Service: 08/18/131258 Status: Signed World Travel Counselor: Juventino Morley MD (Physician) Related Notes: Related Note by Ashwin Young PA-C (Physician Gas Treater - Certified) filed at 08/18/132022 I have reviewed the note and supervised the mid-level provider. Juventino Morley MD 08/18/132054 documented in this e ncounter Plan of Treatment Not on filedocumented as of this encounter Procedures + +--------+ + + + | Procedure Name | Priori | Date/Time | Associated Diagnosis | Comments | | | ty | | | | + +--------+ + + + | CT ABDOMEN PELVIS WO | Routin | 08/18/2013 | | Results for this | | CONTRAST | e | 1:38 PM | | procedure are in the | | | | PDT | | results section. | + +--------+ + + + documented in this encounter Results CT Abdomen Pelvis wo Contrast (08/18/2013 1:38 PM PDT) + + | Specimen | + + | | + + + + + | Impressions | Performed At | + + + | High-grade active or inflammatory lesion is not demonstrated, but | | | some possible imaging correlates with pain 1. Dense stool with a | | | nonobstructed colon 2. Some shotty mid mesenteric subthreshold | | | lymph nodes, could be reactive or chronic, consider mesenteric | | | adenitis 3. 2 small sub-4 mm calcifications at least in the region | | | of the distribution of the left ureter, without upstream | | | hydronephrosis or inflammatory changes | | + + + + + + | Narrative | Performed At | + + + | HISTORY: 47 year-old male with pain TECHNIQUE: CT through the | | | abdomen and pelvis. Performed without the administration of IV | | | contrast. Examination performed without enteric contrast. Prior | | | study for comparison: None FINDINGS: Rapid Outsole Stitcher is unremarkable. | | | Lung bases demonstrate some peripheral basilar scarring-but no | | | discrete lesion, effusion or infiltrate. Bones are without | | | aggressive lesion or fracture. Nonaggressive and degenerative changes | | | not uncommon for age. Old rib fractures of the posterior right costal | | | margin such as on image 36 series 2-healed. Soft tissue windows of | | | the abdomen reveal a structurally normal liver and spleen to | | | noncontrast technique. The adrenal glands are normal as is the | | | gallbladder, pancreas and Boehler's system. Kidneys without | | | hydronephrosis or inflammatory changes. No calcification or dense | | | lesion in evidence. There are a few punctate calcifications over | | | the distribution of the distal left ureter such as on image 69 series | | | 2 and on image 84, near the left ureteral junction. Tracing the ureter | | | itself was not possible due to poor tissue planes but these measure | | | less than 4 mm. Dense stool with a nonobstructive bowel, colon. | | | Appendix is not distinctly seen. No inguinal hernia, no pelvic | | | fluid collection, no ascites and only subthreshold shotty mesenteric | | | and tissue. Pelvis demonstrates no free fluid, no sidewall | | | lymphadenopathy. Normal rectum and pelvic organs. | | + + + + + | Procedure Note | + + | Melquiades, Rad Conversion - 07/02/2019 5:48 PM PDT HISTORY: 47 year-old male with pain | | TECHNIQUE: CT through the abdomen and pelvis. Performed without the administration of IV | | contrast. Examination performed without enteric contrast. Prior study for comparison: | | None FINDINGS: Rapid Outsole Stitcher is unremarkable. Lung bases demonstrate some peripheral basilar | | scarring-but no discrete lesion, effusion or infiltrate. Bones are without aggressive | | lesion or fracture. Nonaggressive and degenerative changes not uncommon for age. Old rib | | fractures of the posterior right costal margin such as on image 36 series 2-healed. | | Soft tissue windows of the abdomen reveal a structurally normal liver and spleen to | | noncontrast technique. The adrenal glands are normal as is the gallbladder, pancreas and | | Boehler's system. Kidneys without hydronephrosis or inflammatory changes. No | | calcification or dense lesion in evidence. There are a few punctate calcifications over | | the distribution of the distal left ureter such as on image 69 series 2 and on image 84, | | near the left ureteral junction. Tracing the ureter itself was not possible due to poor | | tissue planes but these measure less than 4 mm. Dense stool with a nonobstructive | | bowel, colon. Appendix is not distinctly seen. No inguinal hernia, no pelvic fluid | | collection, no ascites and only subthreshold shotty mesenteric and tissue. Pelvis | | demonstrates no free fluid, no sidewall lymphadenopathy. Normal rectum and pelvic | | organs. IMPRESSION: High-grade active or inflammatory lesion is not demonstrated, but | | some possible imaging correlates with pain 1. Dense stool with a nonobstructed colon 2. | | Some shotty mid mesenteric subthreshold lymph nodes, could be reactive or chronic, | | consider mesenteric adenitis 3. 2 small sub-4 mm calcifications at least in the region | | of the distribution of the left ureter, without upstream hydronephrosis or inflammatory | | changes | | | |No inguinal hernia, no pelvic fluid collection, no ascites and only subthreshold shotty mes enteric and tissue. Pelvis demonstrates no free fluid, no sidewall lymphadenopathy. Normal r ectum and pelvic organs. | | | |IMPRESSION: | | | |High-grade active or inflammatory lesion is not demonstrated, but some possible imaging cor relates with pain | | | |1. Dense stool with a nonobstructed colon | | | |2. Some shotty mid mesenteric subthreshold lymph nodes, could be reactive or chronic, consi camille mesenteric adenitis | | | |3. 2 small sub-4 mm calcifications at least in the region of the distribution of the left u reter, without upstream hydronephrosis or inflammatory changes | | | | | + + documented in this encounter Visit Diagnoses + + | Diagnosis | + + | Mesenteric adenitis Nonspecific mesenteric lymphadenitis | + + | Abdominal pain, acute Abdominal pain, unspecified site | + + | Nausea & vomiting Nausea with vomiting | + + | Diarrhea | + + documented in this encounter
--- OUTSIDE RECORDS SUMMARY | ~2020-06-05 | XMS | Encounter Summary ---
Demographics + + + | Address | [address] | | | [place] [address] | + + + | Home Phone | | + + + | Preferred Language | Unknown | + + + | Marital Status | Single | + + + | Anabaptist Affiliation | Unknown | + + + | Race | Unknown | + + + | Ethnic Group | Unknown | + + + Author + + + | Author | [facility] | | | and [place] | + + + | Organization | [facility] | | | and [place] [...] Team Providers + +------+ + | Care Video Production Intern Name | Role | Phone | + +------+ + | Jerome Young MD | PCP | | + +------+ + Encounter Details +--------+ + + + + | Date | Type | Department | Care Team | Description | +--------+ + + + + | 10/13/ | Hospital | [facility] | Conversion | | | 2014 | Encounter | [facility] | Transaction, | | | | | OUTPATIENT | Provider Unknown | | | | | PROCEDURES [address] | [phone] | | | | | [address] | | | | | | [place], [place] | | | | | | [address] | | | | | | [phone] | | | +--------+ + + + [...]
--- OUTSIDE RECORDS SUMMARY | ~2020-06-05 | XMS | Encounter Summary ---
Demographics + + + | Address | [address] | | | [place] [address] | + + + | Home Phone | | + + + | Preferred Language | Unknown | + + + | Marital Status | Single | + + + | Sabianism Affiliation | Unknown | + + + | Race | Unknown | + + + | Ethnic Group | Unknown | + + + Author + + + | Author | [facility] | | | and [place] | + + + | Organization | [facility] | | | and [place] [...] Team Providers + +------+ + | Care Automotive Generator Repairer Name | Role | Phone | + +------+ + PCP | Unavailable | + +------+ + Encounter Details +--------+ + + + + | Date | Type | Department | Care Team | Description | +--------+ + + + + | 12/16/ | [facility] | [facility] | Bryson Brady, | | | 2011 | Encounter | [facility] | [address] | | | | | CENTER [address] | [place] | | | | | [place] | [address] | | | | | [address] | | | | | | [phone] | | | +--------+ + + + [...] documented as of this encounter ED Notes Bryson Brady MD - 12/16/2011 7:20 PM PSTDATE: 12/16/2011 HISTORY OF PRESENT ILLNESS: This is a 46-year-old male. He is complaining of 2 to 3 days of right upp er quadrant and epigastric pain, 7/10 in nature. No coughing. No vomiting. He sa id he has spit up carl e black stuff. It looks kind of tarry, but denies any nausea. He has also had some dark diarrheal sto ols, but no lightheadedness. No bright red blood. He has h ad some increasing gas or belching, decreas e in his appetite. He says milk seems to make t his better. The patient has a history of asthma. He mercado s HIV. He uses medical marijuana and smokes tobacco. He denies alcohol or NSAID use. ALLERGIES: [facility] MEDICATIONS 1. Acetaminophen. 2. Albuterol. 3. Aspirin. 4. Prezista. 5. Truvada. 6. Flovent. 7. Lortab. 8. Ativan. 9. Norvir. 10. Simvastatin. 11. Vitamin D. REVIEW OF SYSTEMS: Complete review of systems negative except as detailed in the HPI above. PHYSICAL EXAMINATION VITAL SIGNS: Blood pressure 113/87, heart rate 106, respirations 16, afebrile, 100% on room air. GENERAL: Appears to be in no acute distress. HEENT: His pupils are equal and reactive to light and accommodation. Extraocular movements intact. Or al mucosa moist. NECK: Supple, nontender. CARDIAC: Normal S1, S2. LUNGS: Clear to auscultation bilaterally. ABDOMEN: Soft. He has some slight right upper quadrant tenderness, but no rebound or guardi ng. No CVA tenderness. NEUROLOGIC: Cranial nerves 2 through 12 intact. Normal sensation, motor, and strength in al l 4 extrem ities Alert and oriented x3. SKIN: No rashes or lesions. His CBC is completely within normal limits. His metabolic panel has a glu cose of 118. It is otherwise within normal limits. ASSESSMENT AND PLAN THIS IS A 46-YEAR-OLD MALE WITH DIAGNOSIS OF EPIGASTRIC PAIN. Given some dark material bein g spit up as well as some dark appearing diarrhea and improving with milk, I told him that this is likely pepti c ulcer disease, but that it also could be gallbladder disease. We gav e him Protonix, Maalox and visc ous lidocaine, and he really improved his pain significantl y, which also points to more likely being peptic ulcer disease. We did schedule him for out patient gallbladder ultrasound to be performed tomor row. He can follow up with his primary care provider, and he should return if any new concerning symp toms. He was provided with prescription for omeprazole. DICTATED BY: Bryson Brady M.D. Emergency Medicine JOB #: [id number] EXT JOB #:[id number] <Electronicall y Signed by Bryson Brady MD> 12/19/11 1423 documented in this encounter Plan of Treatment Not on filedocumented as of this encounter Procedures + +--------+ + + + | Procedure Name | Priori | Date/Time | Associated Diagnosis | Comments | | | ty | | | | + +--------+ + + + | CBC WITH | Routin | 12/16/2011 | | Results for this | | DIFFERENTIAL | e | 8:22 PM | | procedure are in the | | | | PST | | results section. | + +--------+ + + + | LIPASE | Routin | 12/16/2011 | | Results for this | | | e | 8:22 PM | | procedure are in the | | | | PST | | results section. | + +--------+ + + + | COMPREHENSIVE | Routin | 12/16/2011 | | Results for this | | METABOLIC PANEL | e | 8:22 PM | | procedure are in the | | | | PST | | results section. | + +--------+ + + + documented in this encounter Results Comprehensive Metabolic Panel (12/16/2011 8:22 PM PST) + + + + + + | Component | Value | Ref Range | Performed | Pathologist | | | | | At | Signature | + + + + + + | Glucose | 118 (H) | 70 - 109 mg/dL | [facility] | [facility] | | | | | [facility] - | | | | | | LABORATORY | | + + + + + + | Calcium | 8.6 | 8.3 - 10.5 | [facility] | | | | | mg/dL | [facility] | [facility] | | [facility] | | | | | | [facility] - | | | | | | LABORATORY | | + + + + + + | Alkaline | 98 | 40 - 110 IU/L | [facility] | | | Phosphatase | | | [facility] | | | | | | [facility] | | | | | | [facility] - | | | | | | LABORATORY | | + + + + + + | AST | 27 | 10 - 42 IU/L | [facility] | | | | | | [facility] | | | | | | [facility] | | | | | | [facility] - | | | | | | LABORATORY | | + + + + + + | ALT | 34 | 6 - 45 IU/L | [facility] | | | | | | [facility] | | | | | | [facility] | | | | | | [facility] - | | | | | | LABORATORY | | + + + + + + | Bilirubin | 0.5 | 0.2 - 1.0 mg/dL | [facility] | | | Total | | | [facility] | | | | | | [facility] | | | | | | [facility] - | | | | | | LABORATORY | | + + + + + + | Total | 7.3 | 6.0 - 7.8 gm/dL | [facility] | | | Protein | | | [facility] | | | | | | [facility] | | | | | | [facility] - | | | | | | LABORATORY | | + + + + + + | Albumin | 4.1 | 3.2 - 5.0 gm/dL | [facility] | | | | | | [facility] | | | | | | [facility] | | | | | | [facility] - | | | | | | LABORATORY | | + + + + + + | BUN | 17 | 7 - 18 mg/dL | [facility] | | | | | | [facility] | | | [facility] | | [facility] | | | | | | [facility] - | | | | | | LABORATORY | | + + + + + + | Creatinine | 0.91 | 0.60 - 1.30 | [facility] | | | | | mg/dL | [facility] | | | | | | [facility] | | | | | | C[facility] - | | | | | | LABORATORY | | + + + + + + | Estimated | >60Comment: For | >60 mL/min/A | [facility] | | | GFR | -Americans, | | [facility] | | | | please multiply the | | MEDICAL | | | | result by 1.210 | | CENTER - | | | | This is an estimated | | LABORATORY | | | | GFR and is based on a | | | | | | standard adult | | | | | | body mass (A=1.73m2) and | | | | | | serum creatinine | | | | + + + + + + | BUN/Creatin | 18.7 | 12 - 20 | [facility] | | | ine Ratio | | | [facility] | | | | | | [facility] | | | | | | CENTER - | | | | | | LABORATORY | | + + + + + + | Na | 138 | 136 - 149 mEq/L | [facility] | | | | | | [facility] | | | | | | [facility] | | | | | | [facility] - | | | | | | LABORATORY | | + + + + + + | K | 3.8 | 3.5 - 5.1 mEq/l | [facility] | | | | | | [facility] | | | | | | [facility] | | | | | | [facility] - | | | | | | LABORATORY | | + + + + + + | Cl | 102 | 98 - 109 mEq/l | [facility] [...] + + + | Anion Gap | 12.8 | 6.0 - 17.0 | [facility] | | | | | | [facility] [...] | + + + + + | [facility] | [address] | [place] | [phone] | | [facility] | | [address] | | | - LABORATORY | | | | + + + + + | [facility] | [address] | [place], [place] | | | [facility] | | [id number] | | | - LABORATORY | | | | + + + + + Lipase (12/16/2011 8:22 PM PST) + +-------+ + + + | Component | Value | Ref Range | Performed | Pathologist | | | | | At | Signature | + +-------+ + + + | Lipase | 53 | 0 - 60 U/L | [facility] | | | | | | [facility] | | | | | | [facility] | | | | | | C[facility] - | | | | | | LABORATORY | | + +-------+ + + + + + | Specimen | + + | | + + + + + + + | Performing | Address | City/State/Zipcode | Phone Number | | Organization | | | | + + + + + | [facility] | [address] | [place] | [phone] | | [facility] | | [address] | | | - LABORATORY | | | | + + + + + | [facility] | [address] | [place], [place] | | | [facility] | | [address], [facility] | | | - LABORATORY | | | | + + + + + CBC with Differential (12/16/2011 8:22 PM PST) + +-------+ + + + | Component | Value | Ref Range | Performed | Pathologist | | | | | At | Signature | + +-------+ + + + | White Blood | 5.9 | 4.0 - 11.0 K/uL | [facility] | | | Cells | | | [facility] | | | | | | [facility]ICAL | | | | | | CENTER - | | | | | | LABORATORY | | + +-------+ + + + | Red Blood | 5.17 | 4.30 - 5.70 | [facility] | | | Cells | | M/uL | [facility] | | | | | | [facility]ICAL | | | | | | CENTER - | | | | | | LABORATORY | | + +-------+ + + + | Hemoglobin | 15.9 | 13.5 - 18.0 | [facility] | | | | | gm/dL | [facility] | | | | | | [facility] | | | | | | CENTER - | | | | | | LABORATORY | | + +-------+ + + + | Hematocrit | 47.3 | 40.0 - 51.0 % | [facility] | | | | | | [facility] | | | | | | [facility] | | | | | | [facility] - | | | | | | LABORATORY | | + +-------+ + + + | MCV | 91.6 | 83.0 - 101.0 fL | [facility] | | | | | | [facility] | | | | | | [facility] | | | | | | C[facility] - | | | | | | LABORATORY | | + +-------+ + + + | MCH | 30.7 | 28.0 - 35.0 pg | [facility] | | | | | | [facility] | | | | | | [facility] | | | | | | C[facility] - | | | | | | LABORATORY | | + +-------+ + + + | MCHC | 33.6 | 32.0 - 36.0 | [facility] | | | | | g/dL | [facility] | | | | | | [facility] | | | | | | CENTER - | | | | | | LABORATORY | | + +-------+ + + + | RDW-CV | 13.8 | <15.0 % | [facility] | | | | | | [facility] | | | | | | [facility] | | | | | | CENTER - | | | | | | LABORATORY | | + +-------+ + + + | Platelet | 228 | 140 - 440 K/uL | [facility] | | | Count | | | [facility] | | | | | | [facility] | | | | | | CENTER - | | | | | | LABORATORY | | + +-------+ + + + | % | 49.4 | 45 - 75 % | [facility] | | | Neutrophils | | | [facility] | | | | | | MEDICAL | | | | | | CENTER - | | | | | | LABORATORY | | + +-------+ + + + | % | 38.8 | 20 - 45 % | [facility] | | | Lymphocytes | | | [facility] | | | | | | [facility]ICAL | | | | | | CENTER - | | | | | | LABORATORY | | + +-------+ + + + | % Monocytes | 9.2 | 4 - 12 % | [facility] | | | | | | [facility] | | | | | | [facility] | | | | | | CENTER - | | | | | | LABORATORY | | + +-------+ + + + | % | 1.9 | 0 - 5 % | [facility] | | | Eosinophils | | | [facility] | | | | | | [facility] | | | | | | CENTER - | | | | | | LABORATORY | | + +-------+ + + + | % Basophils | 0.7 | 0 - 1 % | [facility] | | | | | | [facility] | | | | | | [facility] | | | | | | CENTER - | | | | | | LABORATORY | | + +-------+ + + + | Absolute | 2.9 | 1.5 - 6.6 K/uL | [facility] | | | Neutrophils | | | [facility] | | | | | | [facility] | | | | | | CENTER - | | | | | | LABORATORY | | + +-------+ + + + | Absolute | 2.3 | 0.6 - 3.2 K/uL | [facility] | | | Lymphocytes | | | [facility] | | | | | | [facility]ICAL | | | | | | CENTER - | | | | | | LABORATORY | | + +-------+ + + + | Absolute | 0.5 | 0.0 - 1.0 K/uL | [facility] | | | Monocytes | | | [facility] | | | | | | MEDICAL | | | | | | CENTER - | | | | | | LABORATORY | | + +-------+ + + + | Absolute | 0.1 | 0.0 - 0.4 K/uL | [facility] | | | Eosinophils | | | [facility] | | | | | | MEDICAL | | | | | | CENTER - | | | | | | LABORATORY | | + +-------+ + + + | Absolute | 0.0 | 0.0 - 0.1 K/uL | [facility] | | | Basophils | | | [facility] | | | | | | [facility] | | | | | | CENTER - | | | | | | LABORATORY | | + +-------+ + + + + + | Specimen | + + | | + + + + + + + | Performing | Address | City/State/Zipcode | Phone Number | | Organization | | | | + + + + + | [facility] | [address] | [place], [place] | [phone] | | [facility] | | [address] | | | - LABORATORY | | | | + + + + + | [facility] | [address] | [place], [place] | | | [facility] | | [address] [place] [address] | | | - LABORATORY | | | | + + + + + documented in this encounter Visit Diagnoses Not on filedocumented in this encounter"
--- OUTSIDE RECORDS SUMMARY | ~2020-06-05 | XMS | Encounter Summary ---
Demographics + + + | Address | [address] | | | [place] [address] | + + + | Home Phone | | + + + | Preferred Language | Unknown | + + + | Marital Status | Single | + + + | Mosque Affiliation | Unknown | + + + [...] Team Providers + +------+ + | Care Light Rail Transit Operator Name | Role | Phone | [...] | | | [address] | [facility], | | | | | Mailcode: [id number] | [place] [address] | | | | | Physician's Mak | [phone] | | | | | [place], [place] | | | | | | [address] | | | | | | [phone] | | | +--------+--------+ + + + [...]
--- OUTSIDE RECORDS SUMMARY | ~2020-06-05 | XMS | Encounter Summary ---
Demographics + + + | Address | [address] | | | [place] [address] | + + + | Home Phone | | + + + | Preferred Language | Unknown | + + + | Marital Status | Single | + + + | Buddhist Affiliation | Unknown | + + + | Race | White | + + + | Ethnic Group | Not or | + + + Author + + + | Author | [facility] | + + + | Organization | [facility] | + + + | Address | Unknown | + + + | Phone | Unavailable | + + + Support + + +---------+ + | Name | Relationship | Address | Phone | + + +---------+ + | Skyler Todd | ECON | Unknown | | + + +---------+ + Care Team Providers + +------+ + | Care Technical Project Manager Name | Role | Phone | + +------+ + | Jerome Young MD | PCP | | + +------+ + Encounter Details +--------+------+ + + + | Date | Type | Department | Care Team | Description | +--------+------+ + + + | 01/20/ | Lab | Laboratory at [facility] | | HIV (human | | 2011 | | [address] | | immunodeficiency | | | | Loop Physician's | | virus infection) | | | | [address], 3rd floor | | ([facility]) | | | | [place], [place] | | | | | | [address] | | | | | | [phone] | | | +--------+------+ + + + [...] | + + + + + | [facility] DEPARTMENT OF | [address] | [place] [address] | | | PATHOLOGY | [address] [...] [facility] | [address] | [place] [address] | | | PATHOLOGY | [address] [...] At | + + + | [facility] | [facility] [address] | REGIONAL | | [place] [address] | LABORATORY | + + + + + + + + | Performing | Address | City/State/Zipcode | Phone Number | | Organization | | | | + + + + + | [facility] | [address] | [place] [address] | | | LABORATORY | | | [...] [facility] | [address] | [place] [address] | | | PATHOLOGY | [address] | | | + + + + + HIV QUANTITATIVE PCR, PLASMA (01/21/2012 12:27 PM PDT) + + + + + + | Component | Value | Ref Range | Performed | Pathologist | | | | | At | Signature | + + + + + + | HIV-QNT PCR | 98 | copies/mL | [facility] | | | | | | DIAGNOSTIC [...] HIV QUANT | Reportable Range: | | ROMAN[facility]KEITH | | | INTERPRETAT | 48-10,000,000 HIV-1 [...] + + + | [facility] | [address] | [place] [address] | | | DIAGNOSTIC | [address] [...] | | | DEPARTMENT | | | [place] | | | OF | | | [...] [facility] | [address] | [place] [address] | | | PATHOLOGY | [address] [...] [facility] | [address] | [place] [address] | | | PATHOLOGY | [address] | | | + + + [...] [facility] | [address] | [place] [address] | | | PATHOLOGY | [address] [...] [facility] | [address] | [place] [address] | | | PATHOLOGY | [address] | | | + + + + + documented in this encounter Visit Diagnoses + + | Diagnosis | + + | HIV (human immunodeficiency virus infection) (HCC) Asymptomatic human | | immunodeficiency virus (HIV) infection status | + + documented in this encounter"
--- OUTSIDE RECORDS SUMMARY | ~2020-06-05 | XMS | Encounter Summary ---
Demographics + + + | Address | [address] | | | [place] [address] | + + + | Home Phone | | + + + | Preferred Language | Unknown | + + + | Marital Status | Single | + + + | Hinduism Affiliation | Unknown | + + + | Race | Unknown | + + + | Ethnic Group | Unknown | + + + Author + + + | Author | [facility] | | | and [place] | + + + | Organization | [facility] | | | and [...] Team Providers + +------+ + | Care Conductor Freight Name | Role | Phone | + +------+ + | Jerome Young MD | PCP | | + +------+ + Encounter Details +--------+ + + + + | Date | Type | Department | Care Team | Description | +--------+ + + + + | 10// | Emergency | [facility] | [facility] | Cellulitis; [facility] | | 2014 | | [facility] | E, DO [address] | (epidemic | | | | EMERGENCY CENTER | [address] | keratoconjunctivitis | | | | [address] | [place], [place] | ) | | | | [place], [place] | [address] | | | | | [address] | [phone] | | | | | [phone] | | | +--------+ + + + [...] Progress Notes Conversion Transaction, Provider Unknown - 08/19/2014 9:12 PM PDTFormatting of this note m ight be different from the original. Case Management by LANDY Elliott at 08/19/142111 Author: LANDY Elliott Service: (none) Author Type: Analog Ic Design Engineer Filed: 08/19/142112 Date of Service: 08/19/142111 Status: Signed It Consulting Manager: LANDY Elliott (Analog Ic Design Engineer) AMITA ALERT: Visit Date Location Type Diagnoses 08/19/2014 20:56 [facility] Emergency 07/17/2014 20:05 [facility] ED Emergency - Conjunctivitis, unspecified - Skin Complaint - Pain in joint, pelvic region and thigh - Skin Complaint; Eye Pain 07/14/2014 14:06 [facility] [place] Emergency 0. Human immunodeficiency virus [HIV ] disease 1. Candidal esophagitis 1. Tobacco use disorder 06/29/2014 21:28 [facility] Emergency - Myalgia and myositis, unspeci fied - Other abnormal glucose - Numbness - Pain in joint, multiple sites - Hyposmolality and/or hyponatremia - Generalized Body Aches - Tachycardia, unspecified - Recheck (Comments) 06/28/2014 11:49 [facility] Emergency - Hyposmolality and/or hyponatr emia - Painful respiration - Other abnormal glucose - Chest Pain - Other malaise and fatigue 06/25/2014 14:25 [facility] ED Emergency - Leg Swelling - Edema - Rash and other nonspecific skin eruption - Skin Complaint 05/05/2014 20:37 [facility] ED Emergency - Rash - Cellulitis and abscess of upper arm and forearm - Skin Complaint 08/19/2013 12:10 [facility] Emergency - Abdominal Pain - Calculus of bile duct without mention of cholecystitis, without mention of obstruction - Diarrhea - Anxiety state, unspecified E.D. Visit Count (1 Yr.) Visits Low Acuity [facility] [place] 1 0 [facility] 3 0 [facility] ED 3 0 Total 7 0 docume nted in this encounter ED Notes Conversion Transaction, Provider Unknown - 08/19/2014 9:44 PM PDTFormatting of this note m ight be different from the original. ED Notes by Kathy Wing RN at 08/19/142143 Author: Kathy Wing RN Service: (none) Author Type: Registered Nurse Filed: 08/19/142143 Date of Service: 08/19/142143 Status: Signed It Consulting Manager: Kathy Wing RN (Registered Nurse) Assumed care of pt. Kathy Wing RN 08/19/142143 onver brett Transaction, Provider Unknown - 08/19/2014 9:44 PM PDT ED Notes by Seferino Kraft RN at 08/19/142143 Author: Seferino Kraft RN Service: (none) Author Type: Registered Nurse Filed: 08/19/142146 Date of Service: 08/19/142143 Status: Signed It Consulting Manager: Seferino Kraft RN (Registered Nurse) Pt states has had weird rash that started at diaphragm went up back onto scalp and then to Left eye approx 2 weeks ago. States L eye started with floaters and cloudy central vision t hat hasn't gone away. Hasn't been in to see primary or eye doctor. States feels like Right eye is starting to do same by seeing floaters and having debris in center of R eye. Pt als o c/o of foot pain and tenderness to L lower ext. Both legs are swollen Seferino Kraft RN 08/19/142146 umpLeo stoner DO - 08/19/2014 9:37 PM PDTFormatting of this note might be different from t he original. ED Provider Notes by Leo West DO at 08/19/142136 Author: Leo West DO Service: Emergency Department Author Type: Physician Filed: 08/20/14 0428 Date of Service: 08/19/142136 Status: Signed It Consulting Manager: Leo West DO (Physician) [facility] Department of Emergency Medicine 08/19/14 9:37 PM History of Present Illness Patient Identification Pavan Anderson is a 48 y.o. male. Patient information was obtained from patient. History/Exam limitations: none. Patient presented to the Emergency Department by: Car History of Presenting Illness The patient is a 48 y.o. year old male presenting with Chief Complaint Patient presents with Eye Problem "black spots in eyes" began one month ago Foot Swelling bilateral, last 4 days . Location- L eye Onset- one month ago Duration- Intermittent Severity/Character- "floaters" and pressure Worse with- Nothing Also c/o- bilat feet swelling, cough, rash to his chest to the top of his head Context- The pt reports he has been seeing spots in his L eye and worsening swelling of his feet. PMHx- The pt reports going to [facility] ED about 2 weeks ago and was given eye drops for the sx . The pt has had swelling of his feet for several months and was told it was cellulitis. HIV positive treated with antivirals. PCP: Gonzalez King Past Medical History Diagnosis Date HIV (human immunodeficiency virus infection) Muscle spasms of neck Hyperlipidemia Cholelithiasis COPD (chronic obstructive pulmonary disease) Chronic mastoiditis Multiple joint pain 05/14/2013 Other chronic pain Past Surgical History Procedure Laterality Date Tonsillectomy Fistula repair Tympanoplasty Prior to Admission medications Medication Sig Start Date End Date Taking? Authorizing Provider Darunavir Ethanolate 800 MG TABS Take 800 mg by mouth daily. 03/16/14 03/16/15 Yes Zita basurto MD emtricitabine-tenofovir (TRUVADA) 200-300 MG per tablet Take 1 tablet by mouth daily. 4 03/16/15 Yes Zita Enriquez MD famotidine (PEPCID) 20 MG tablet Take 1 tablet by mouth 2 (two) times daily. 07/25/14 5 Yes WANDA Jenkins ritonavir (NORVIR) 100 MG TABS tablet Take 100 mg by mouth daily. 03/16/14 03/16/15 Yes Zita Enriquez MD albuterol (PROVENTIL) (2.5 MG/3ML) 0.083% nebulizer solution inhale contents of 1 vial in n ebulizer every 4 hours if needed for shortness of breath 09/17/13 WANDA Cary albuterol (VENTOLIN HFA) 108 (90 BASE) MCG/ACT inhaler Inhale 2 puffs into the lungs every 4 (four) hours as needed for Wheezing or Shortness of Breath. 09/28/13 09/28/14 WANDA Wheatley citalopram (CELEXA) 40 MG tablet take 1 tablet by mouth once daily 06/25/14 WANDA Luther ams clonazePAM (KLONOPIN) 0.5 MG tablet Take 1 tablet by mouth 2 (two) times daily as needed. WANDA Jenkins etodolac (LODINE XL) 500 MG 24 hr tablet Take 1 tablet by mouth daily. 07/17/14 07/17/15 Manoj Garcia, fluticasone (FLONASE) 50 MCG/ACT nasal 1 spray by Nasal route 2 (two) times daily. 07/12/14 WANDA Michelle fluticasone (FLOVENT HFA) 220 MCG/ACT inhaler Inhale 1 puff into the lungs 2 (two) times da laverne. Historical Provider gabapentin (NEURONTIN) 300 MG capsule Take 1 capsule by mouth 3 (three) times daily. 4 07/01/15 WANDA Jenkins HYDROcodone-acetaminophen (NORCO) 5-325 MG per tablet Take [...] Use: Yes Special: Marijuana Comment: medical card Sexually Active: Not Currently -- Male partner(s) Control/ Protection: Condom Other Topics Concern Not on file Social History Narrative History reviewed. No pertinent family history. Review of Systems Constitutional: Negative for fever, chills Eyes: Positive for L eye pressure and "floaters" Nose: Negative for congestion, nosebleeds Throat: Negative for sore throat CV/Resp: Positive for cough Negative for chest pain, [id number] GI: Negative for abdominal pain, nausea, vomiting, or diarrhea : Negative for urinary problems Musculoskeletal: Positive for bilat foot swelling (4 days) Negative for back pain, joint pain Skin: Positive for rash (chest radiating to the top of his head) Neuro/Psych: Negative for headache Endo/heme/Lymph: Negative for swollen lymph nodes, easy bruising All other systems reviewed and negative except as noted. Physical Exam BP 123/73 | Pulse 109 | Temp(Src) 97.5 F (36.4 C) | Resp 16 | Ht 1.727 m (5' 8") | Wt 9 0.719 kg (200 lb) | BMI 30.42 kg/m2 | SpO2 99% Vital signs interpretation: Tachycardic, otherwise normal Pulse Oximetry interpretation: Normal General: Alert, in no apparent distress Eyes: Bilat ejection and kenosis ENT: Ears normal Nose normal Moist mucous membranes Neck: Normal inspection Supple Cardiovasc: Tachycardic Rhythm normal No murmurs Respiratory: Breath sounds normal bilaterally No rales, wheezing or rhonchi Abdomen: Soft, non-tender, non-distended No guarding or rebound Back: Normal inspection Extremities: Bilat swelling in the lower extremities with mild erythema and warmth on the L Skin: Color normal Warm and dry Several erythematous nodules over the R arm around 0.5 cm in diameter Neuro: Alert, no AMS No gross motor/sensory deficits Moving all extremities Medical Decision Making and Emergency Department Course ED Department Course Patient presents to ED with complaints of visual changes and bilat lower extremities. On ex am the patient has bilat ejection and kenosis, tachycardia, bilat swelling in the lower extr emities with mild erythema and warmth on the L, and several erythematous nodules over the R arm around 0.5 cm in diameter. My DDx includes, but is not limited to: cellulitis, renal ins ufficiency, lymphedema, chronic lower extremity swelling, conjunctivitis likely viral, vs ot her. Will order CBC, CMP, and reevaluate the patient. After taking a thorough history and i ncorporating physical exam findings as well as any labwork and radiology studies into my wor anders diagnosis I feel the patient most likely has cellulitis and will treat accordingly. The patient presents with worsening swelling of his bilateral lower extremities and he also redness in his left lower extremity with some increased pain as well as warmth. He also mercado s symptoms of worsening visual changes as well as red eyes bilaterally. On my examination a ppears the patient may have a developing cellulitis and I felt it important treat him for th is and so I will do so. I checked a complete blood count to get an absolute lymphocyte coun t 2 best estimate his CD4 count as this has not been done in several months. The absolute l ymphocyte count was 2300 which would suggest that his CD4 count was greater than 500 and I f elt comfortable with the patient is likely not having a CMV retinitis is some noted be seen with a CD for Less than 200. I do however feel that it is very appropriate the patient foll ows up with relief manager for this continued conjunctiva injection as well as the visual c hanges or he has been experiencing for full ophthalmologic evaluation. The patient is stabl e for discharge. Review of vitals BP 116/69 | Pulse 97 | Temp(Src) 97.2 F (36.2 C) (Oral) | Resp 20 | Ht 1.727 m (5' 8") | Wt 90.719 kg (200 lb) | BMI 30.42 kg/m2 | SpO2 99% 2255 Labs reviewed. 2256 Patient reevaluation. Patient is stable and feeling better at this time. Discussed my clinical impressions and lab results with the pt. Discussed plan for discharge and all reaso ns to [facility]. Pt understands and agrees with plan. All questions have been addressed. Pt is re ralph for discharge at this time. Pavan was evaluated in the emergency department through taking a thorough history of prese nt illness, past medical history including medical conditions, current medications, allergie s to medications, social history, and family history. A physical exam was performed. Throu gh incorporating the history of present illness and physical exam findings, clinical judgmen t was used to determine if any diagnostic tests or imaging was necessary. Once the workup w as complete and the patient had been treated, he was found to be in good clinical condition on re-assessment. All results that may have been resulted were explained to Pavan and spec ial instruction was given to the patient regarding their diagnosis and what symptoms would n ecessitate a prompt return to the emergency department. Pavan voiced understanding of the above instructions and was discharged in good clinical condition to follow up with their [facility] care provider in 1-2 days and/or any specialist that may have been referred. Pavan wi ll take any prescribed or recommended OTC medications for symptom relief. ED Medication Administration from 08/19/20142055 to 08/19/20142258 Date/Time Order Dose Route Action Action by 08/19/20142247 sodium chloride 0.9 % bolus 1,000 mL 0 mL Intravenous Stopped Kathy Wing RN 08/19/20142203 sodium chloride 0.9 % bolus 1,000 mL 1,000 mL Intravenous New Bag Steve Wing, KAREEM Records Reviewed Old medical records. Nursing notes. Previous ED visits for similar and unrelated complaints. Laboratory Evaluation Results Procedure Component Value Ref Range Date/Time Comprehensive metabolic panel [[id number]] (Abnormal) Collected: 08/19/142158 Order Status: Completed Updated: 08/19/142230 Specimen Information: Blood SODIUM 134 (L) 135 - 143 mmol/L POTASSIUM 3.6 3.5 - 4.9 mmol/L CHLORIDE 101 99 - 109 mmol/L CO2 27 23 - 32 mmol/L ANION GAP AGAP 11 5 - 20 mmol/L GLUCOSE 115 (H) 65 - 99 mg/dL BUN 21 8 - 25 mg/dL CREATININE 0.92 0.70 - 1.30 mg/dL BUN/CREAT 22 CALCIUM 8.9 8.5 - 10.2 mg/dL TOTAL PROTEIN 7.8 6.3 - 8.2 g/dL Albumin 3.3 (L) 3.6 - 5.0 g/dL GLOBULIN 4.5 1.3 - 4.9 g/dL A/G 0.7 (L) 1.0 - 2.4 TBIL 0.5 0.1 - 1.5 mg/dL ALK PHOS 122 (H) 35 - 115 U/L AST 22 10 - 45 U/L ALT 26 10 - 65 U/L EGFR >60 >60 mL/min/1.73m2 CBC with differential [[id number]] (Abnormal) Collected: 08/19/142158 Order Status: Completed Updated: 08/19/142214 Specimen Information: Blood WBC 6.2 3.8 - 11.0 K/uL RBC 4.53 4.20 - 5.70 M/uL HGB 12.1 (L) 13.2 - 17.0 g/dL HCT 36.2 (L) 39.0 - 50.0 % MCV 79.8 (L) 80.0 - 100.0 fl MCH 26.7 (L) 27.0 - 34.0 pg MCHC 33.5 32.0 - 35.5 g/dL RDW SD 45.1 37 - 53 fl PLT 216 150 - 400 K/uL MPV 7.6 fl DIFF TYPE AUTOMATED NEUTROPHILS 48.0 % LYMPHOCYTES 37.6 % MONOCYTES 11.7 % EOSINOPHILS 2.0 % BASOPHILS 0.7 % NEUTROPHILS ABS 3.0 1.9 - 7.4 K/uL LYMPHOCYTES ABS 2.3 1.0 - 3.9 K/uL MONOCYTES ABS 0.7 0 - 0.8 K/uL EOSINOPHILS ABS 0.1 0 - 0.5 K/uL BASOPHILS ABS 0.0 0 - 0.1 K/uL I personally reviewed the lab results and they have been posted to the chart. Pertinent po sitive and negative findings have been addressed appropriately and I have discussed any abno rmal labs with the patient. Radiology and EKG Evaluation Imaging Results None ED Diagnoses Final diagnoses Cellulitis EKC (epidemic keratoconjunctivitis) Disposition: ED Disposition Discharge Condition at discharge: Stable Follow-up Information Follow up With Details Comments Contact Info WANDA Jenkins In 2 days [address] [facility] [address] [facility] Emergency Department If symptoms worsen [address] [facility] [address] Kang Grace MD Schedule an appointment as soon as possible for a visit [address] [facility] [address] Discharge Medications: Discharge Medication List as of 08/19/2014 11:02 PM START taking these medications Details cephALEXin (KEFLEX) 500 MG capsule Take 1 capsule by mouth 4 (four) times daily., Starting 08/19/2014, Until Fri08/29/14, Print sulfamethoxazole-trimethoprim (BACTRIM DS,SEPTRA DS) 800-160 MG per tablet Take 2 tablets b y mouth 2 (two) times daily., Starting 08/19/2014, Until Fri08/29/14, Print This chart has been created using [employer] Speech Recognition software. The chart has been reviewed and there may still exist sound alike word errors. Procedures Additional Documentation Procedures Attending Note: Documentation assistance provided by Chika Alberto (Scribe). Information recorded by the scribe has been reviewed and validated by me. I ag ree with its contents. DO Leo Alvarez DO 08/20/14 0428 documente d in this encounter Plan of Treatment Not on filedocumented as of this encounter Procedures + +--------+ + + + | Procedure Name | Priori | Date/Time | Associated Diagnosis | Comments | | | ty | | | | + +--------+ + + + | EXTERNAL LAB: [facility] | Routin | 08/19/2014 | | Results for this | | | e | 9:59 PM | | procedure are in the | | | | PDT | | results section. | + +--------+ + + + | COMPREHENSIVE | Routin | 08/19/2014 | | Results for this | | METABOLIC PANEL | e | 9:59 PM | | procedure are in the | | | | PDT | | results section. | + +--------+ + + + documented in this encounter Results External Lab: [facility] (08/19/2014 9:59 PM PDT) + + + + + + | Component | Value | Ref Range | Performed | Pathologist | | | | | At | Signature | + + + + + + | WBC | 6.2Comment: Testing | 3.8 - 11.0 K/uL | EXTERNAL | | | | performed at [facility];[address] | | LAB | | | | [address];[place] | | | | | | [address] | | | | + + + + + + | Non- | 4.53Comment: Testing | 4.20 - 5.70 | EXTERNAL | | | Red Blood | performed at [facility];[address] | M/uL | LAB | | | Cells | [address];[place] | | | | | Counted | [phone] | | | | + + + + + + | Hemoglobin | 12.1 (L)Comment: Testing | 13.2 - 17.0 | EXTERNAL | | | | performed at [facility];[address] | g/dL | LAB | | | | [address];[place] | | | | | | [address] | | | | + + + + + + | Hematocrit, | 36.2 (L)Comment: Testing | 39.0 - 50.0 % | EXTERNAL | | | POC | performed at [facility];[address] | | LAB | | | | [address];[place] | | | | | | [address] | | | | + + + + + + | MCV | 79.8 (L)Comment: Testing | 80.0 - 100.0 fl | EXTERNAL | | | | performed at [facility];[address] | | LAB | | | | [address];[place] | | | | | | [address] | | | | + + + + + + | MCH | 26.7 (L)Comment: Testing | 27.0 - 34.0 pg | EXTERNAL | | | | performed at [facility];[address] | | LAB | | | | [address];[place] | | | | | | [address] | | | | + + + + + + | MCHC | 33.5Comment: Testing | 32.0 - 35.5 | EXTERNAL | | | | performed at [facility];[address] | g/dL | LAB | | | | [address];[place] | | | | | | [address] | | | | + + + + + + | RDW-CV | 45.1Comment: Testing | 37 - 53 fl | EXTERNAL | | | | performed at [facility];[address] | | LAB | | | | [address];[place] | | | | | | [address] | | | | + + + + + + | Platelet | 216Comment: Testing | 150 - 400 K/uL | EXTERNAL | | | Count | performed at [facility];[address] | | LAB | | | Plasma | [address];[place] | | | | | | [address] | | | | + + + + + + | MPV | 7.6Comment: Testing | fl | EXTERNAL | | | | performed at [facility];[address] | | LAB | | | | [address];[place] | | | | | | [address] | | | | + + + + + + | Differentia | AUTOMATEDComment: | | EXTERNAL | | | l Type | Testing performed at | | LAB | | | | [facility];[address];[place] [address] | | | | + + + + + + | % Segmented | 48.0Comment: Testing | % | EXTERNAL | | | | performed at [facility];[address] | | LAB | | | Neutrophils | [address];[place] | | | | | | [address] | | | | + + + + + + | % | 37.6Comment: Testing | % | EXTERNAL | | | Lymphocytes | performed at [facility];[address] | | LAB | | | | [address];[place] | | | | | | [address] | | | | + + + + + + | % Monocytes | 11.7Comment: Testing | % | EXTERNAL | | | | performed at [facility];[address] | | LAB | | | | [address];[place] | | | | | | [address] | | | | + + + + + + | % | 2.0Comment: Testing | % | EXTERNAL | | | Eosinophils | performed at [facility];[address] | | LAB | | | | [address];[place] | | | | | | [address] | | | | + + + + + + | % Basophils | 0.7Comment: Testing | % | EXTERNAL | | | | performed at [facility];[address] | | LAB | | | | [address];[place] | | | | | | [address] | | | | + + + + + + | Absolute | 3.0Comment: Testing | 1.9 - 7.4 K/uL | EXTERNAL | | | Segmented | performed at [facility];[address] | | LAB | | | Neutrophils | [address];[place] | | | | | | [address] | | | | + + + + + + | Absolute | 2.3Comment: Testing | 1.0 - 3.9 K/uL | EXTERNAL | | | Lymphocytes | performed at [facility];[address] | | LAB | | | | [address];[place] | | | | | | [address] | | | | + + + + + + | Absolute | 0.7Comment: Testing | 0 - 0.8 K/uL | EXTERNAL | | | Monocytes | performed at [facility];[address] | | LAB | | | | [address];[place] | | | | | | [address] | | | | + + + + + + | Absolute | 0.1Comment: Testing | 0 - 0.5 K/uL | EXTERNAL | | | Eosinophils | performed at [facility];[address] | | LAB | | | | [address];[place] | | | | | | [address] | | | | + + + + + + | Absolute | 0.0Comment: Testing | 0 - 0.1 K/uL | EXTERNAL | | | Basophils | performed at [facility];[address] | | LAB | | | | [address];[place], [place] | | | | | | [address] | | | | + + + [...] + +---------+ + + Comprehensive Metabolic Panel (08/19/2014 9:59 PM PDT) + + + + + + | Component | Value | Ref Range | Performed | Pathologist | | | | | At | Signature | + + + + + + | Na | 134 (L)Comment: Testing | 135 - 143 | EXTERNAL | | | | performed at [facility];[address] | mmol/L | LAB | | | | [address];[place] | | | | | | [address] | | | | + + + + + + | K | 3.6Comment: Testing | 3.5 - 4.9 | EXTERNAL | | | | performed at [facility];[address] | mmol/L | LAB | | | | [address];[place] | | | | | | [address] | | | | + + + + + + | Cl | 101Comment: Testing | 99 - 109 mmol/L | EXTERNAL | | | | performed at [facility];[address] | | LAB | | | | [address];[place] | | | | | | [address] | | | | + + + + + + | CO2 | 27Comment: Testing | 23 - 32 mmol/L | EXTERNAL | | | | performed at [facility];[address] | | LAB | | | | [address] | | | | | | [address] | | | | + + + + + + | Anion Gap | 11Comment: Testing | 5 - 20 mmol/L | EXTERNAL | | | | performed at [facility];[address] | | LAB | | | | [address] | | | | | | [address] | | | | + + + + + + | Glucose, | 115 (H)Comment: Testing | 65 - 99 mg/dL | EXTERNAL | | | Fasting | performed at [facility];[address] | | LAB | | | | [address];[place] | | | | | | [address] | | | | + + + + + + | BUN | 21Comment: Testing | 8 - 25 mg/dL | EXTERNAL | | | | performed at [facility];[address] | | LAB | | | | [address] | | | | | | [address] | | | | + + + + + + | Creatinine | 0.92Comment: Testing | 0.70 - 1.30 | EXTERNAL | | | | performed at [facility];[address] | mg/dL | LAB | | | | [address] | | | | | | [address] | | | | + + + + + + | BUN/Creatin | 22Comment: Testing | | EXTERNAL | | | ine Ratio | performed at [facility];[address] | | LAB | | | | [address];[place] | | | | | | [address] | | | | + + + + + + | Calcium | 8.9Comment: Testing | 8.5 - 10.2 | EXTERNAL | | | | performed at [facility];[address] | mg/dL | LAB | | | | [address] | | | | | | [address] | | | | + + + + + + | Protein, | 7.8Comment: Testing | 6.3 - 8.2 g/dL | EXTERNAL | | | Total | performed at [facility];[address] | | LAB | | | | [address];[place] | | | | | | [address] | | | | + + + + + + | Albumin | 3.3 (L)Comment: Testing | 3.6 - 5.0 g/dL | EXTERNAL | | | | performed at [facility];[address] | | LAB | | | | [address];[place] | | | | | | [address] | | | | + + + + + + | Globulin | 4.5Comment: Testing | 1.3 - 4.9 g/dL | EXTERNAL | | | | performed at [facility];[address] | | LAB | | | | [address];[place] | | | | | | [address] | | | | + + + + + + | A/G Ratio | 0.7 (L)Comment: Testing | 1.0 - 2.4 | EXTERNAL | | | | performed at [facility];[address] | | LAB | | | | [address];[place] | | | | | | [address] | | | | + + + + + + | Bilirubin | 0.5Comment: Testing | 0.1 - 1.5 mg/dL | EXTERNAL | | | Total | performed at [facility];[address] | | LAB | | | | [address];[place] | | | | | | [address] | | | | + + + + + + | ALP, | 122 (H)Comment: Testing | 35 - 115 U/L | EXTERNAL | | | External | performed at [facility];[address] | | LAB | | | | [address];[place] | | | | | | [address] | | | | + + + + + + | AST | 22Comment: Testing | 10 - 45 U/L | EXTERNAL | | | | performed at [facility];[address] | | LAB | | | | [address];[place] | | | | | | [address] | | | | + + + + + + | ALT | 26Comment: Testing | 10 - 65 U/L | EXTERNAL | | | | performed at [facility];[address] | | LAB | | | | [address];[place] | | | | | | [address] | | | | + + + [...] | | | | | | at [facility];[address] [facility] | | | | | | [address];[place] [address] | | | | + + + [...] + | Diagnosis | + + | Cellulitis Cellulitis and abscess of unspecified site | + + | EKC (epidemic keratoconjunctivitis) Epidemic keratoconjunctivitis | + + documented in this encounter [...]
--- OUTSIDE RECORDS SUMMARY | ~2020-06-05 | XMS | Encounter Summary ---
Demographics + + + | Address | [address] | | | [place] [address] | + + + | Home Phone [...] Organization | [facility] | | | and [place] | [...] Team Providers + +------+ + | Care [facility] Name | Role | Phone | + +------+ + PCP | Unavailable | + +------+ + Encounter Details +--------+ + + + + | Date | Type | Department | Care Team | Description | +--------+ + + + + | 02/11/ | [facility] | [facility] | Bryson Brady, | | | 2012 | Encounter | [facility] | [address] | | | | | CENTER [address] | [place] | | | | | [place] | [address] | | | | | [address] | | | | | | [phone] | | | +--------+ + + + [...] encounter ED Notes Bryson Brady MD - 02/11/2013 10:43 PM [place], [place] [address] Patient Name: PAVAN ANDERSON Provider: Unit #: [id number] Location: [facility] #: [id number] : 1965 DATE: 02/11/2013 HISTORY OF PRESENT ILLNESS: This is a 47-year-old male complaining of pain in his right up per back for the last day and a half after he twisted wrong. No numbness or weakness in his extremities. He says the pain radiates from just below the shoulder blade up to his neck a nd shoulder and is worse with movement. He says he has a history of HIV, arthritis and asth ma. He complains of a slight headache on that side in the back of the head as well. It feel s like the back is "locked up." MEDICATION ALLERGIES: INCLUDE CIPROFLOXACIN. HOME MEDICATIONS 1. Tylenol. 2. Ventolin. 3. Aspirin. 4. Prezista. 5. Truvada. 6. Flovent. 7. Lortab. 8. Ativan. 9. Norvir. 10. Simvastatin. 11. Vitamin D3. REVIEW OF SYSTEMS: Complete review of systems is negative except as detailed in the HPI ab ove. PHYSICAL EXAMINATION VITAL SIGNS: On exam, blood pressure is 120/86, heart rate 88, respirations 18, afebrile, 97% on room air. GENERAL: No distress. HEENT: Pupils equal and reactive to light and accommodation. Extraocular movements intact. Oral mucosa moist. NECK: Supple, nontender. CARDIAC: Normal S1, S2. LUNGS: Lung sounds clear to auscultation bilaterally. ABDOMEN: Soft, nontender, nondistended. Normal bowel sounds. NEUROLOGIC: Cranial nerves 2 through 12 intact. Normal sensation, motor, and strength in a ll 4 extremities. He is alert and oriented x3. BACK: Exam of his back, he has tenderness and spasm of the trapezius muscle on the right. He has no midline tenderness, no deformities or crepitus. SKIN: Without rashes or lesions. ASSESSMENT AND PLAN THIS IS A 47-YEAR-OLD MALE WITH DIAGNOSIS OF MUSCLE SPASM, RIGHT TRAPEZIUS, WITH ASSOCIATE D HEADACHE. He was given hydrocodone and Flexeril in the ER, discharged home. He can take home medicat ions for pain, follow up with primary care and return if any new concerning symptoms. DICTATED BY: Bryson Brady M.D. Emergency Medicine JOB #: [id number] EXT JOB #:[id number] <<Signature on File>> Bryson Brady MD0 02/16/13 1500 < documented in this encounter Plan of Treatment Not on filedocumented as of this encounter Visit Diagnoses Not on filedocumented in this encounter
--- OUTSIDE RECORDS SUMMARY | ~2020-06-05 | XMS | Encounter Summary ---
Demographics + + + | Address | [address] | | | [place] [address] | + + + | Home Phone | | + + + | Preferred Language | Unknown | + + + | Marital Status | Single | + + + | Spiritism Affiliation | Unknown | + + + | Race | White | + + + | Ethnic Group | Not or | + + + Author + + + | Author | [facility] | + + + | Organization | [facility] | + + + | Address | Unknown | + + + | Phone | Unavailable | + + + Support + + +---------+ + | Name | Relationship | Address | Phone | + + +---------+ + | Skyler Todd | ECON | Unknown | | + + +---------+ + Care Team Providers + +------+ + | Care Dean Of Women Name | Role | Phone | + [...] | | | | immunodefici | [address] | [address] [facility] | | | | | ency virus | [place]. | Eben Valles | | | | | (HIV) | [place], | [place], | | | | | disease | [place] [address] | [place] | | | | | (HCC) | Phone: | [phone] | | | | | | [phone] | Phone: | | | | | | Fax: | [phone] | | | | | | [phone] | Fax: | | | | | | | [phone] | +--------+--------+ + + + + Encounter [...] virus infection) | | | | Mailcode: [id number] | [place] [address] | ([facility]); | | | | [facility] | [phone] | Hyperlipidemia LDL | | | | [place], [place] | | goal < 100; Anxiety | | | | [address] | | state, unspecified | | | | [phone] | | | +--------+---------+ + + + [...] was last seen for f/u in the [facility] on 02/12/2011. Since [...] was negative. Establishing with new PCP at [facility]. Pavan is otherwise stable. He denies fevers, [...] gait. Labs: Lab Results Component Value Date [id number] 321 08/27/2011 [id number] 10 08/27/2011 HIVPCR <48 01/11/2011 Lab Results Component Value Date RPR Non-Reactive 09/04/2010 Lab Results Component Value Date CHOL 173 01/10/2011 LDL 95 01/10/2011 HDL 41 01/10/2011 TRI 185 01/10/2011 Lab Results Component Value Date [id number] 31 09/04/2010 Last CBC, CMP reviewed with [...] + + + | [facility]) [facility] | JUSTIN | | [place] [address] | REGIONAL | | [place] [address] | LABORATORY | + + + + + + + + | Performing | Address | City/State/Zipcode | Phone Number | | Organization | | | | + + + + + | [facility] | [address] | [place] [address] | | | LABORATORY | | | [...] DEPARTMENT OF | [address] | [place] [address] | | | PATHOLOGY | [address] [...] [facility] | [address] | [place] [address] | | | DIAGNOSTIC | [address] [...] | | | DEPARTMENT | | | ROMANIAN | | | OF | | | [...] | + + + + + | [facility] | [address] | [place] [address] | | | PATHOLOGY | [address] [...] | + + + + + | [facility] | [address] | [place] [address] | | | PATHOLOGY | [address] [...] | + + + + + | [facility] | [address] | [place] [address] | | | PATHOLOGY | [address] [...] | + + + + + | [facility] | [address] | [place] [address] | | | PATHOLOGY | [address] [...]
--- OUTSIDE RECORDS SUMMARY | ~2020-06-05 | XMS | Encounter Summary ---
Demographics + + + | Address | [address] | | | [place] [address] | + + + | Home Phone | | + + + | Preferred Language | Unknown | + + + | Marital Status | Single | + + + | Yazidism Affiliation | Unknown | + + + | Race | Unknown | + + + | Ethnic Group | Unknown | + + + Author + + + | Author | [facility] | | | and [place] | + + + | Organization | [facility] | | | and [...] Team Providers + +------+ + | Care [employer] Music Teacher Name | Role | Phone | + +------+ + | Jerome Young MD | PCP | | + +------+ + Encounter Details +--------+ + + + + | Date | Type | Department | Care Team | Description | +--------+ + + + + | 06/25/ | Emergency | [facility] | Juventino Morley, | Bilateral lower | | 2014 | | [facility] | MD Myke CHAUDHARI | extremity edema; | | | | [facility] | [place] [address] | Rash | | | | [address] | [phone] | | | | | [place] | | | | | | [address] | | | | | | [phone] | | | +--------+ + + + [...] documented as of this encounter ED Notes Vince Seals PA-C - 06/25/2014 2:26 PM PDT ED Provider Notes by Vince Seals PA-C at 06/25/14 1426 Author: Vince Seals PA-C Service: (none) Author Type: Physician Cabinet Builder - Certified Filed: 07/05/14 1559 Date of Service: 06/25/141425 Status: Attested Learning And Development Assistant: Vince Seals PA-C (Physician Cabinet Builder - Certified) Cosigner: Cameron Briscoe at 07/06/14 1040 Attestation signed by Juventino Morley MD at 07/06/14 1048 I have reviewed the note and supervised the mid-level provider. Procedures [facility] Department of Emergency Medicine History of Present Illness Patient Identification Slava Anderson is a 48 y.o. male. Patient information was obtained from patient. History/Exam limitations: none. Patient presented to the Emergency Department by: Car Chief Complaint Chief Complaint Patient presents with Leg Swelling The patient complains of bilateral lower extremity swelling. Onset of symptoms was several months ago. The course has been constant. The symptoms are described to be of moderate sev erity. The patient also chronic leg pain and he has not been able to see his primary care do ctor stating that he is supposed to see her every 4 weeks but the scheduling office said jennifer t the next available appointment was in 5 weeks. Patient states he is frustrated because he has to go without pain medication during this time. Patient also reports hurting his right lower extremity twice while skiing injury. Patient states his tetanus is up-to-date. No t reatment prior to arrival. Pt denies further complaints at this time. Review of systems Positive as per HPI Constitutional: Negative for: fever, chills, fatigue, sweats or weight loss HENT: Negative for ear pain, congestion, sore throat, mouth sores and neck pain. Eyes: Negative for: Eye pain or irritated eyes Cardiovascular/Respiratory: Negative for: chest pain, shortness of breath, cough Gastrointestinal: Negative for: abdominal pain, vomiting, diarrhea, black or bloody stools Genitourinary: Negative for: dysuria, hematuria, urinary problems Musculoskeletal: Negative for back pain, myalgias and falls Skin: Negative for: laceration or lesion. Positive for abrasion to right lower extremit y. Neuro and psych: Negative for: fainting, head injury, seizure, sensory change, focal weakn ess or head aches. Endocrine/Heme/Lymph: Negative for: swollen lymph nodes, easy bruising PCP: Gonzalez King Allergies: No Known Allergies Medications: Prior to Admission medications Medication Sig Start [...] WANDA Wheatley citalopram (CELEXA) 40 MG tablet Take 1 tablet by mouth daily. 05/14/13 WANDA Cary clonazePAM (KLONOPIN) 0.5 MG tablet Take 0.5 mg by mouth 2 (two) times daily as needed. Historical Provider Darunavir Ethanolate 800 MG TABS Take 800 mg by mouth daily. 03/16/14 03/16/15 Zita Enriquez MD emtricitabine-tenofovir (TRUVADA) 200-300 MG per tablet Take 1 tablet by mouth daily. 4 03/16/15 Zita Enriquez MD fluticasone (FLONASE) 50 MCG/ACT nasal 1 spray by Nasal route 2 (two) times daily. 09/28/13 09/28/14 WANDA Cary fluticasone (FLOVENT HFA) 220 MCG/ACT inhaler Inhale 1 puff into the lungs 2 (two) times da laverne. Historical Provider HYDROcodone-acetaminophen (NORCO) 5-325 MG per tablet Take 1-2 tablets by mouth every 6 (si x) hours as needed for Pain. Do not exceed 8 in a 24 hour period. Do not take Tylenol, as t his medication has Tylenol in it. 05/05/14 05/15/14 WANDA Blanchard ritonavir (NORVIR) 100 MG TABS tablet Take 100 mg by mouth daily. 03/16/14 03/16/15 Zita vazquez MD Past Medical History Past Medical History Diagnosis Date HIV (human immunodeficiency virus infection) Muscle spasms of neck Hyperlipidemia Cholelithiasis COPD (chronic obstructive pulmonary disease) Chronic mastoiditis Multiple joint pain 05/14/2013 Other chronic pain Past Surgical History Past Surgical History Procedure Laterality Date Tonsillectomy Fistula repair Tympanoplasty Social history History Social History Marital Status: Single Spouse [...] Concern Not on file Social History Narrative Family history History reviewed. No pertinent family history. Physical Exam BP 125/80 | Pulse 68 | Temp(Src) 98.2 F (36.8 C) | Resp 16 | Wt 96 kg (211 lb 10.3 oz) | BMI 32.19 kg/m2 | SpO2 98% VS reviewed: VS are currently WNL. Pulse Oximetry interpretation: Normal General: Alert, in no acute distress, non toxic-appearing Eyes: Normal inspection, pupils equal and round, non-icteric ENT: Ears normal Nose normal Pharynx normal Neck: Normal inspection Supple No lymphadenopathy No meningismus Cardiovascular: Rate and rhythm normal No harsh murmurs Respiratory: Breath sounds normal bilaterally Abdomen: Soft, non-tender, non-distended No guarding or rebound Physical Exam Musculoskeletal: Right ankle: He exhibits normal range of motion. Tenderness. Lateral malleolus tendern ess found. No head of 5th metatarsal and no proximal fibula tenderness found. Achilles tendo n normal. Feet: Skin: Rash noted. Rash is maculopapular. Back: Normal inspection Skin: Color normal Warm and dry No rash Neuro: GCS: 4,5,6. No gross neurological deficits, interacts appropriately and answers al l questions Medical Decision Making and Emergency Department Course ED Department Course 2:30 pm Patient complains of bilateral lower extremity swelling he also has a rash that started spe cific at this time. Differential diagnosis for bilateral lower leg swelling including CHF, bilateral DVT, hypoalbuminemia and medication side effects. Patient is stable, non-toxic, will check basic labs including urine screen, CBC, CMP, CRP, ESR. We will x-ray his right lower extremity and order ultrasounds of both lower extremitie s to evaluate for DVT. Also will tx his reported pain with vicodin at this time. No acute findings on x-ray. Bilateral lower extremity venous ultrasounds are negative for DVT. Lab work reveals elevated sedimentation rate and CRP, will have him follow-up with his [facility] doctor. Will discharge and encourage close f/u with PCP, pts pain is now controlled and we have dis cussed ED course and all results. I discussed progression of illness and return precautions , they agree with discharge plan and had no further questions. Discharge vital signs reviewed and are stable. Filed Vitals: 06/25/14 1432 06/25/14 1545 06/25/14 1642 06/25/14 1740 BP: 123/88 124/86 125/80 Pulse: 104 98 94 68 Temp: 98.6 F (37 C) 98.7 F (37.1 C) 98 F (36.7 C) 98.2 F (36.8 C) Resp: Weight: 96 kg (211 lb 10.3 oz) SpO2: 99% 99% 100% 98% Medications given during ED course: ED Medication Administration from 06/25/2014 1425 to 07/05/2014 1555 Date/Time Order Dose Route Action Action by 06/25/2014 4284 HYDROcodone-acetaminophen (NORCO) 5-325 MG per tablet 2 tablet 2 tablet O ral Given Luis Wyatt RN Orders placed during ED course: Orders Placed This Encounter Procedures XR Ankle Right 3 View US Lower Extremity - Venous Bilateral CBC W/Auto Diff (Reflex to Manual) Comprehensive metabolic panel C-reactive protein Sedimentation rate, automated Brain natriuretic peptide Irrigate wounds with normal saline Wound dressing Records Reviewed Old medical records. Laboratory Evaluation Results Procedure Component Value Ref Range Date/Time Sedimentation rate, automated [[id number]] (Abnormal) Collected: 06/25/141446 Order Status: Completed Updated: 06/25/14 1536 Specimen Information: Blood ESR 53 (H) 0 - 15 mm/Hr Brain natriuretic peptide [[id number]] Collected: 06/25/141446 Order Status: Completed Updated: 06/25/14 1518 Specimen Information: Blood BRAIN NATRIURETIC PEPTIDE 65.0 0 - 100 pg/mL Comprehensive metabolic panel [[id number]] (Abnormal) Collected: 06/25/141446 Order Status: Completed Updated: 06/25/14 151 Specimen Information: Blood SODIUM 139 135 - 143 mmol/L POTASSIUM 3.9 3.5 - 4.9 mmol/L CHLORIDE 103 99 - 109 mmol/L CO2 31 23 - 32 mmol/L ANION GAP AGAP 9 5 - 20 mmol/L GLUCOSE 112 (H) 65 - 99 mg/dL BUN 16 8 - 25 mg/dL CREATININE 0.9 0.70 - 1.30 mg/dL BUN/CREAT 18 CALCIUM 8.4 (L) 8.5 - 10.2 mg/dL TOTAL PROTEIN 8.1 6.3 - 8.2 g/dL Albumin 2.9 (L) 3.6 - 5.0 g/dL GLOBULIN 5.2 (H) 1.3 - 4.9 g/dL A/G 0.6 (L) 1.0 - 2.4 TBIL 0.3 0.1 - 1.5 mg/dL ALK PHOS 191 (H) 35 - 115 U/L AST 28 10 - 45 U/L ALT 47 10 - 65 U/L EGFR >60 >60 mL/min/1.73m2 C-reactive protein [[id number]] (Abnormal) Collected: 06/25/141446 Order Status: Completed Updated: 06/25/14 1512 Specimen Information: Blood CRP 9.6 (H) <0.5 mg/dL CBC W/Auto Diff (Reflex to Manual) [[id number]] (Abnormal) Collected: 06/25/141446 Order Status: Completed Updated: 06/25/14 1502 Specimen Information: Blood WBC 5.4 3.8 - 11.0 K/uL RBC 4.51 4.20 - 5.70 M/uL HGB 12.5 (L) 13.2 - 17.0 g/dL HCT 38.0 (L) 39.0 - 50.0 % MCV 84.2 80.0 - 100.0 fl MCH 27.7 27.0 - 34.0 pg MCHC 32.9 32.0 - 35.5 g/dL RDW SD 42.4 37 - 53 fl PLT 246 150 - 400 K/uL MPV 8.0 fl DIFF TYPE AUTOMATED NEUTROPHILS 51.7 % LYMPHOCYTES 36.3 % MONOCYTES 9.2 % EOSINOPHILS 1.6 % BASOPHILS 1.2 % NEUTROPHILS ABS 2.8 1.9 - 7.4 K/uL LYMPHOCYTES ABS 2.0 1.0 - 3.9 K/uL MONOCYTES ABS 0.5 0 - 0.8 K/uL EOSINOPHILS ABS 0.1 0 - 0.5 K/uL BASOPHILS ABS 0.1 0 - 0.1 K/uL MORPHOLOGY Radiology and EKG Evaluation Imaging Results US Lower Extremity - Venous Bilateral (Final result) Result time: 06/25/14 16:48:36 Final result by Rad Results In Melquiades (06/25/14 16:48:36) Impression: 1. No evidence of lower extremity deep vein thrombosis. Narrative: SLAVA ANDERSON 1965 US LOWER EXTREMITY VENOUS DOPPLER BILAT 06/25/2014 4:40 PM HISTORY: Bilateral lower extremity swelling COMPARISON: None. TECHNIQUE: Bilateral lower extremity venous duplex, grayscale, color-flow and spectral anal ysis performed FINDINGS: The deep venous system is normal on grayscale imaging. Normal compressibility and augmentation is demonstrated. The calf veins are patent on color flow assessment. There is no Carrera's cyst. XR Ankle Right 3 View (Final result) Result time: 06/25/14 15:00:35 ED Interpretation Documented by Rad Results In Melquiades (06/25/14 15:00:35, [facility] Emergency Department in [place], Emergency Medicine) No acute fracture dislocation no radiopaque foreign body identified. No evidence of osteomyelitis. Final result by Rad Results In Melquiades (06/25/14 14:59:16) Impression: 1. There is a soft tissue injury noted along the lateral aspect of the ankle. 2. No acute fracture or dislocation is noted. Narrative: SLAVA ANDERSON 1965 06/25/2014 2:51 PM XR ANKLE RIGHT INDICATION: Trauma, pain COMPARISON: None TECHNIQUE: Right ankle series, 3 views FINDINGS: There is mild osteoarthritic spurring of the medial and lateral malleolus. The ta lar dome is intact. No widening of the medial or lateral gutter is present. There is a soft tissue defect adjacent to the lateral malleolus with a overlying bandage. Some generalized e emmy or cellulitis is noted. There is a small joint effusion. The tibiotalar and subtalar dania int spaces are maintained. Mild enthesopathy of the Achilles tendon insertion is present and there is a small traction calcaneal bone spur. Moderate degenerative changes along the dors al aspect of the navicular are stable. ED Diagnoses Final diagnoses Bilateral lower extremity edema Rash Disposition: ED Disposition Orders Discharge Condition at discharge: Stable Follow-up Information Follow up With Details Comments Contact Info WANDA Cary Schedule an appointment as soon as possible for a visit in 3 days [address] [facility] [address] [facility] Emergency Department in [place] As needed, If symptoms worsen [address] [facility] [id number] Discharge Medications: Discharge Medication List as of 06/25/2014 5:29 PM This document has been prepared with a voice recognition system. The possibility of "sound alike" research advisor errors, addition and/or deletions may occur. If there is any question p ron contact the author of the document. Vince Seals PA-C 07/05/14 1559 Juventino Morley MD 07/06/14 1043 documented in this en counter Plan of Treatment Not on filedocumented as of this encounter Procedures + +--------+ + + + | Procedure Name | Priori | Date/Time | Associated Diagnosis | Comments | | | ty | | | | + +--------+ + + + | VAS LOWER EXTREMITY | Routin | 06/25/2014 | | Results for this | | VENOUS BILATERAL | e | 4:40 PM | | procedure are in the | | | | PDT | | results section. | + +--------+ + + + | XR ANKLE RIGHT 3 + | Routin | 06/25/2014 | | Results for this | | VW | e | 2:51 PM | | procedure are in the | | | | PDT | | results section. | + +--------+ + + + | EXTERNAL LAB: CBC | Routin | 06/25/2014 | | Results for this | | | e | 2:47 PM | | procedure are in the | | | | PDT | | results section. | + +--------+ + + + | SEDIMENTATION RATE, | Routin | 06/25/2014 | | Results for this | | AUTOMATED | e | 2:47 PM | | procedure are in the | | | | PDT | | results section. | + +--------+ + + + | C-REACTIVE PROTEIN | Routin | 06/25/2014 | | Results for this | | | e | 2:47 PM | | procedure are in the | | | | PDT | | results section. | + +--------+ + + + | B TYPE NATRIURETIC | Routin | 06/25/2014 | | Results for this | | PEPTIDE | e | 2:47 PM | | procedure are in the | | | | PDT | | results section. | + +--------+ + + + | COMPREHENSIVE | Routin | 06/25/2014 | | Results for this | | METABOLIC PANEL | e | 2:47 PM | | procedure are in the | | | | PDT | | results section. | + +--------+ + + + documented in this encounter Results VAS Lower Extremity Venous Bilateral (06/25/2014 4:40 PM PDT) + + | Specimen | + + | | + + + + + | Impressions | Performed At | + + + | 1. No evidence of lower extremity deep vein thrombosis. | | | | | + + + + + + | Narrative | Performed At | + + + | SLAVA ANDERSON 1965 LOWER EXTREMITY VENOUS DOPPLER BILAT | | | 06/25/2014 4:40 PM HISTORY: Bilateral lower extremity swelling | | | COMPARISON: None. TECHNIQUE: Bilateral lower extremity venous | | | duplex, grayscale, color-flow and spectral analysis performed | | | FINDINGS: The deep venous system is normal on grayscale imaging. | | | Normal compressibility and augmentation is demonstrated. The calf | | | veins are patent on color flow assessment. There is no Carrera's cyst. | | | | | + + + + + | Procedure Note | + + | Amaury Arnett - 06/25/2019 11:46 AM ARLENE ANDERSON1965US LOWER | | EXTREMITY VENOUS DOPPLER BILAT06/25/2014 4:40 PM HISTORY: Bilateral lower extremity | | swelling COMPARISON: None. TECHNIQUE: Bilateral lower extremity venous duplex, | | grayscale, color-flow and spectral analysis performed FINDINGS: The deep venous system | | is normal on grayscale imaging. Normal compressibility and augmentation is demonstrated. | | The calf veins are patent on color flow assessment. There is no Carrera's cyst. | | IMPRESSION: 1. No evidence of lower extremity deep vein thrombosis. Electronically | | signed by Aj Spence MD on 06/25/2014 4:48 PM | | | |TECHNIQUE: Bilateral lower extremity venous duplex, grayscale, color-flow and spectral anal ysis performed | | | |FINDINGS: The deep venous system is normal on grayscale imaging. Normal compressibility and augmentation is demonstrated. The calf veins are patent on color flow assessment. There is no Carrera's cyst. | | | |IMPRESSION: | |1. No evidence of lower extremity deep vein thrombosis. | | | | | + + XR Ankle Right 3 + Vw (06/25/2014 2:51 PM PDT) + + | Specimen | + + | | + + + + + | Impressions | Performed At | + + + | 1. There is a soft tissue injury noted along the lateral aspect of | | | the ankle. 2. No acute fracture or dislocation is noted. | | | | | + + + + + + | Narrative | Performed At | + + + | SLAVA ANDERSON 1965 06/25/2014 2:51 PM XR ANKLE RIGHT | | | INDICATION: Trauma, pain COMPARISON: None TECHNIQUE: Right | | | ankle series, 3 views FINDINGS: There is mild osteoarthritic | | | spurring of the medial and lateral malleolus. The talar dome is | | | intact. No widening of the medial or lateral gutter is present. There | | | is a soft tissue defect adjacent to the lateral malleolus with a | | | overlying bandage. Some generalized edema or cellulitis is noted. | | | There is a small joint effusion. The tibiotalar and subtalar joint | | | spaces are maintained. Mild enthesopathy of the Achilles tendon | | | insertion is present and there is a small traction calcaneal bone | | | spur. Moderate degenerative changes along the dorsal aspect of the | | | navicular are stable. | | + + + + + | Procedure Note | + + | Amaury Arnett - 06/25/2019 11:46 AM PDT SLAVA ANDERSON 2:51 | | PMXR ANKLE RIGHT INDICATION: Trauma, pain COMPARISON: None TECHNIQUE: Right ankle | | series, 3 views FINDINGS: There is mild osteoarthritic spurring of the medial and | | lateral malleolus. The talar dome is intact. No widening of the medial or lateral gutter | | is present. There is a soft tissue defect adjacent to the lateral malleolus with a | | overlying bandage. Some generalized edema or cellulitis is noted. There is a small joint | | effusion. The tibiotalar and subtalar joint spaces are maintained. Mild enthesopathy of | | the Achilles tendon insertion is present and there is a small traction calcaneal bone | | spur. Moderate degenerative changes along the dorsal aspect of the navicular are stable. | | IMPRESSION: 1. There is a soft tissue injury noted along the lateral aspect of the | | ankle.2. No acute fracture or dislocation is noted. | |bandage. Some generalized edema or cellulitis is noted. There is a small joint effusion. Th e tibiotalar and subtalar joint spaces are maintained. Mild enthesopathy of the Achilles ten don insertion is present and there is | |a small traction calcaneal bone | |spur. Moderate degenerative changes along the dorsal aspect of the navicular are stable. | | | |IMPRESSION: | |1. There is a soft tissue injury noted along the lateral aspect of the ankle. | |2. No acute fracture or dislocation is noted. | | | | | + + Sedimentation rate, automated (06/25/2014 2:47 PM PDT) + + + + + + | Component | Value | Ref Range | Performed | Pathologist | | | | | At | Signature | + + + + + + | Sed Rate | 53 (H)Comment: Testing | 0 - 15 mm/Hr | EXTERNAL | | | | performed at [facility], [address] | | LAB | | | | [address], | | | | | | [place] [address] | | | | + + + [...] + +---------+ + + External Lab: CBC (06/25/2014 2:47 PM PDT) + + + + + + | Component | Value | Ref Range | Performed | Pathologist | | | | | At | Signature | + + + + + + | WBC | 5.4Comment: Testing | 3.8 - 11.0 K/uL | EXTERNAL | | | | performed at [facility], [address] | | LAB | | | | [address], | | | | | | [place] [address] | | | | + + + + + + | Non- | 4.51Comment: Testing | 4.20 - 5.70 | EXTERNAL | | | Red Blood | performed at [facility], [address] | M/uL | LAB | | | Cells | [address], | | | | | Counted | [place] [address] | | | | + + + + + + | Hemoglobin | 12.5 (L)Comment: Testing | 13.2 - 17.0 | EXTERNAL | | | | performed at [facility], [address] | g/dL | LAB | | | | [address], | | | | | | [place] [address] | | | | + + + + + + | Hematocrit, | 38.0 (L)Comment: Testing | 39.0 - 50.0 % | EXTERNAL | | | POC | performed at [facility], [address] | | LAB | | | | [address], | | | | | | [place] [address] | | | | + + + + + + | MCV | 84.2Comment: Testing | 80.0 - 100.0 fl | EXTERNAL | | | | performed at [facility], [address] | | LAB | | | | [address], | | | | | | [place] [address] | | | | + + + + + + | MCH | 27.7Comment: Testing | 27.0 - 34.0 pg | EXTERNAL | | | | performed at [facility], [address] | | LAB | | | | [address], | | | | | | [place] [address] | | | | + + + + + + | MCHC | 32.9Comment: Testing | 32.0 - 35.5 | EXTERNAL | | | | performed at [facility], [address] | g/dL | LAB | | | | [address], | | | | | | [place] [address] | | | | + + + + + + | RDW-CV | 42.4Comment: Testing | 37 - 53 fl | EXTERNAL | | | | performed at [facility], [address] | | LAB | | | | [address], | | | | | | [place] [address] | | | | + + + + + + | Platelet | 246Comment: Testing | 150 - 400 K/uL | EXTERNAL | | | Count | performed at [facility], [address] | | LAB | | | Plasma | [address], | | | | | | [place] [address] | | | | + + + + + + | MPV | 8.0Comment: Testing | fl | EXTERNAL | | | | performed at [facility], [address] | | LAB | | | | [address], | | | | | | [place] [address] | | | | + + + + + + | Differentia | AUTOMATEDComment: | | EXTERNAL | | | l Type | Testing performed at | | LAB | | | | [facility], [address], | | | | | | [place] [address] | | | | + + + + + + | % Segmented | 51.7Comment: Testing | % | EXTERNAL | | | | performed at [facility], [address] | | LAB | | | Neutrophils | [address], | | | | | | [place] [address] | | | | + + + + + + | % | 36.3Comment: Testing | % | EXTERNAL | | | Lymphocytes | performed at [facility], [address] | | LAB | | | | [address], | | | | | | [place] [address] | | | | + + + + + + | % Monocytes | 9.2Comment: Testing | % | EXTERNAL | | | | performed at [facility], [address] | | LAB | | | | [address], | | | | | | [place] [address] | | | | + + + + + + | % | 1.6Comment: Testing | % | EXTERNAL | | | Eosinophils | performed at [facility], [address] | | LAB | | | | [address], | | | | | | [place] [address] | | | | + + + + + + | % Basophils | 1.2Comment: Testing | % | EXTERNAL | | | | performed at [facility], [address] | | LAB | | | | [address], | | | | | | [place] [address] | | | | + + + + + + | Absolute | 2.8Comment: Testing | 1.9 - 7.4 K/uL | EXTERNAL | | | Segmented | performed at [facility], [address] | | LAB | | | Neutrophils | [address], | | | | | | [place] [address] | | | | + + + + + + | Absolute | 2.0Comment: Testing | 1.0 - 3.9 K/uL | EXTERNAL | | | Lymphocytes | performed at [facility], [address] | | LAB | | | | [address], | | | | | | [place] [address] | | | | + + + + + + | Absolute | 0.5Comment: Testing | 0 - 0.8 K/uL | EXTERNAL | | | Monocytes | performed at [facility], [address] | | LAB | | | | [address], | | | | | | [place] [address] | | | | + + + + + + | Absolute | 0.1Comment: Testing | 0 - 0.5 K/uL | EXTERNAL | | | Eosinophils | performed at [facility], [address] | | LAB | | | | [address], | | | | | | [place] [address] | | | | + + + + + + | Absolute | 0.1Comment: Testing | 0 - 0.1 K/uL | EXTERNAL | | | Basophils | performed at [facility], [address] | | LAB | | | | [address], | | | | | | [place] [address] | | | | + + + + + + | RBC | Comment: 1+ | | EXTERNAL | | | Morphology | HypochromiaTesting | | LAB | | | | performed at [facility], [address] | | | | | | [address], | | | | | | [place] [address] | | | | + + + + + + + + | Specimen | + + | Blood specimen | | (specimen) | + + + +---------+ + + | Performing | Address | City/State/Zipcode | Phone Number | | Organization | | | | + +---------+ + + | EXTERNAL LAB | | | | + +---------+ + + C-Reactive Protein (06/25/2014 2:47 PM PDT) + + + + + + | Component | Value | Ref Range | Performed | Pathologist | | | | | At | Signature | + + + + + + | CRP | 9.6 (H)Comment: Testing | mg/dL | EXTERNAL | | | | performed at [facility], [address] | | LAB | | | | [address], | | | | | | [place] [address] | | | | + + + [...] +---------+ + + B Type Natriuretic Peptide (06/25/2014 2:47 PM PDT) + + + + + + | Component | Value | Ref Range | Performed | Pathologist | | | | | At | Signature | + + + + + + | BNP | 65.0Comment: Testing | 0 - 100 pg/mL | EXTERNAL | | | | performed at [facility], [address] | | LAB | | | | [address], | | | | | | [place] [address] | | | | + + + [...] + +---------+ + + Comprehensive Metabolic Panel (06/25/2014 2:47 PM PDT) + + + + + + | Component | Value | Ref Range | Performed | Pathologist | | | | | At | Signature | + + + + + + | Na | 139Comment: Testing | 135 - 143 | EXTERNAL | | | | performed at [facility], [address] | mmol/L | LAB | | | | [address] | | | | | | [place] [address] | | | | + + + + + + | K | 3.9Comment: Testing | 3.5 - 4.9 | EXTERNAL | | | | performed at [facility], [address] | mmol/L | LAB | | | | [address] | | | | | | [place] [address] | | | | + + + + + + | Cl | 103Comment: Testing | 99 - 109 mmol/L | EXTERNAL | | | | performed at [facility], [address] | | LAB | | | | [address], | | | | | | [place] [address] | | | | + + + + + + | CO2 | 31Comment: Testing | 23 - 32 mmol/L | EXTERNAL | | | | performed at [facility], [address] | | LAB | | | | [address], | | | | | | [place] [address] | | | | + + + + + + | Anion Gap | 9Comment: Testing | 5 - 20 mmol/L | EXTERNAL | | | | performed at [facility], [address] | | LAB | | | | [address], | | | | | | [place] [address] | | | | + + + + + + | Glucose, | 112 (H)Comment: Testing | 65 - 99 mg/dL | EXTERNAL | | | Fasting | performed at [facility], [address] | | LAB | | | | [address], | | | | | | [place] [address] | | | | + + + + + + | BUN | 16Comment: Testing | 8 - 25 mg/dL | EXTERNAL | | | | performed at [facility], [address] | | LAB | | | | [address], | | | | | | [place] [address] | | | | + + + + + + | Creatinine | 0.9Comment: Testing | 0.70 - 1.30 | EXTERNAL | | | | performed at [facility], [address] | mg/dL | LAB | | | | [address], | | | | | | [place] [address] | | | | + + + + + + | BUN/Creatin | 18Comment: Testing | | EXTERNAL | | | ine Ratio | performed at [facility], [address] | | LAB | | | | [address], | | | | | | [place] [address] | | | | + + + + + + | Calcium | 8.4 (L)Comment: Testing | 8.5 - 10.2 | EXTERNAL | | | | performed at [facility], [address] | mg/dL | LAB | | | | [address], | | | | | | [place] [address] | | | | + + + + + + | Protein, | 8.1Comment: Testing | 6.3 - 8.2 g/dL | EXTERNAL | | | Total | performed at [facility], [address] | | LAB | | | | [address], | | | | | | [place] [address] | | | | + + + + + + | Albumin | 2.9 (L)Comment: Testing | 3.6 - 5.0 g/dL | EXTERNAL | | | | performed at [facility], [address] | | LAB | | | | [address], | | | | | | [place] [address] | | | | + + + + + + | Globulin | 5.2 (H)Comment: Testing | 1.3 - 4.9 g/dL | EXTERNAL | | | | performed at [facility], [address] | | LAB | | | | [address], | | | | | | [place] [address] | | | | + + + + + + | A/G Ratio | 0.6 (L)Comment: Testing | 1.0 - 2.4 | EXTERNAL | | | | performed at [facility], [address] | | LAB | | | | [address], | | | | | | [place] [address] | | | | + + + + + + | Bilirubin | 0.3Comment: Testing | 0.1 - 1.5 mg/dL | EXTERNAL | | | Total | performed at [facility], [address] | | LAB | | | | [address], | | | | | | [place] [address] | | | | + + + + + + | ALP, | 191 (H)Comment: Testing | 35 - 115 U/L | EXTERNAL | | | External | performed at [facility], [address] | | LAB | | | | [address], | | | | | | [place] [address] | | | | + + + + + + | AST | 28Comment: Testing | 10 - 45 U/L | EXTERNAL | | | | performed at [facility], [address] | | LAB | | | | [address], | | | | | | [place] [address] | | | | + + + + + + | ALT | 47Comment: Testing | 10 - 65 U/L | EXTERNAL | | | | performed at [facility], [address] | | LAB | | | | [address], | | | | | | [place] [address] | | | | + + + [...] | | | | | | at [facility], [address] | | | | | | [place] | | | | | | [address] | | | | + + + [...] + | Diagnosis | + + | Bilateral lower extremity edema Edema | + + | Rash Rash and other nonspecific skin eruption | + + documented in this encounter [...]
--- OUTSIDE RECORDS SUMMARY | ~2020-06-05 | XMS | Encounter Summary ---
Demographics + + + | Address | [address] | | | [place] [address] | + + + | Home Phone | | + + + | Preferred Language | Unknown | + + + | Marital Status | Single | + + + | Caodaism Affiliation | Unknown | + + + | Race | Unknown | + + + | Ethnic Group | Unknown | + + + Author + + + | Author | [facility] | | | and [place] | + + + | Organization | [facility] | | | and [...] Team Providers + +------+ + | Care Wire Communications Engineer Name | Role | Phone | + +------+ + | Jerome Young MD | PCP | | + +------+ + Encounter Details +--------+ + + + + | Date | Type | Department | Care Team | Description | +--------+ + + + + | 05/12/ | Emergency | [facility] | Rickey Saucedo | Thoracic sprain and | | 2015 | | [facility] | [address] | strain, initial | | | | EMERGENCY CENTER | [address] | encounter; Acute | | | | [address] | [place], [place] | left otitis media, | | | | [place], [place] | [address] | recurrence not | | | | [address] | [phone] | specified, | | | | [phone] | | unspecified otitis | | | | | | media type | +--------+ + + + + Social [...] TABS; 50,000 units | | 0 | 09/13/20 | | | PO | by mouth [...] documented as of this encounter ED Notes Rickey Saucedo DO - 05/12/2015 10:28 PM PDTFormatting of this note might be diff erent from the original. ED Provider Notes by Rickey Saucedo DO at 05/12/152227 Author: Rickey Saucedo DO Service: (none) Author Type: Physician Filed: 05/13/15 0232 Date of Service: 05/12/152227 Status: Signed Needleworker: Rickey Saucedo DO (Physician) [facility] Department of Emergency Medicine 10:28 PM History of Present Illness Patient Identification Pavan Anderson is a 49 y.o. male. Patient information was obtained from patient. History/Exam limitations: none. Patient presented to the Emergency Department by: Car Chief Complaint Chief Complaint Patient presents with Otalgia left ear Back Pain The patient presents to ED with complaints of L otalgia. Onset of symptoms was about three weeks ago, with a persistent course since that time. The symptoms are described to be of mil d to moderate severity. The patient describes the quality and location of the symptoms as th e following: The pt reports that about one month ago he was diagnosed with conjunctivitis, w as placed on abx, half way through course of abx pt began having L ear pain. Reports it is d ifficult to hear out of it and the ear is very painful. The patient also complains of lower back pain, pt has h/o chronic back pain but reports one month ago while moving he re-aggrava leobardo the back and now is having intermittent muscle spasms when he moves in the wrong way. Patient denies cough, fever, congestion, bowel or bladder changes, or further complaints at this time. Care prior to arrival consisted of nothing, with no relief. Not currently having any back pain. Pt has HIV. Unsure of last CD4 count. Currently does not have an ID doc, reports Dr. Enriquez discharged him from her service as he missed his appointments. Pt currently requesting a re ferral to new ID physician Dr. Dukes. Social Hx: Currently homeless. PCP: PER PT NONE Past Medical History Diagnosis Date HIV (human immunodeficiency virus infection) (HCC) Muscle spasms of neck Hyperlipidemia Cholelithiasis COPD (chronic obstructive pulmonary disease) (HCC) Chronic mastoiditis Multiple joint pain 05/14/2013 Other chronic pain Neurosyphilis in male Blurred vision, bilateral Past Surgical History Procedure Laterality Date Tonsillectomy Fistula repair Tympanoplasty Prior to Admission medications Medication Sig Start Date End Date Taking? Authorizing Provider emtricitabine-tenofovir (TRUVADA) 200-300 MG per tablet Take 1 tablet by mouth daily. 4 05/12/15 Yes Zita Enriquez MD ritonavir (NORVIR) 100 MG capsule Take 100 mg by mouth 2 (two) times daily. Yes Historica l Provider albuterol (PROVENTIL) (2.5 MG/3ML) 0.083% nebulizer solution inhale contents of 1 vial in n ebulizer every 4 hours if needed for shortness of breath 09/17/13 WANDA Cary etodolac (LODINE XL) 500 MG 24 hr tablet Take 1 tablet by mouth daily. 07/17/14 07/17/15 Manoj Garcia, DO fluticasone (FLOVENT HFA) 220 MCG/ACT inhaler Inhale 1 puff into the lungs 2 (two) times da laverne. Historical Provider HYDROcodone-acetaminophen (NORCO) 5-325 MG per tablet Take 1 tablet by mouth every 6 (six) hours as needed for Pain. 07/01/14 07/11/14 WANDA Jenkins VENTOLIN HFA 108 (90 BASE) MCG/ACT inhaler inhale 2 puffs by mouth INTO THE LUNGS every 4 h ours if needed for wheezing or shortness of breath 12/15/14 WANDA Cary No Known Allergies History Social History Marital [...] Systems Constitutional: Negative for fever, chills Eyes: Negative for vision changes Ears: Positive for L otalgia Nose: Negative for congestion Throat: Negative for sore throat CV/Resp: Negative for chest pain, [id number], cough GI: Negative for abdominal pain, nausea, vomiting, or diarrhea : Negative for urinary problems Musculoskeletal: Positive for back pain Negative for joint pain Skin: Negative for rash Neuro/Psych: Negative for headache Endo/heme/Lymph: Negative for swollen lymph nodes, easy bruising All other systems reviewed and negative except as noted. Physical Exam BP 137/84 | Pulse 109 | Temp(Src) 97.5 F (36.4 C) | Resp 18 | Wt 92.5 kg (203 lb 14.8 o z) | SpO2 97% Vital signs interpretation: Tachycardic, otherwise normal Pulse Oximetry interpretation: Normal General: Alert, in no apparent distress Eyes: Normal inspection, pupils equal and round, non-icteric ENT: R TM normal, L TM was mildly erythematous but with decreased light reflex compared to the R. No mastoid bilaterally. Nose normal Pharynx normal Neck: Normal inspection Supple Cardiovascular: Rate and rhythm normal No murmurs Respiratory: Breath sounds normal bilaterally No rales, wheezing or rhonchi Abdomen: Soft, non-tender, non-distended No guarding or rebound Back: Mild R lower lateral thoracic tenderness. Extremities: No edema Skin: Color normal Warm and dry No rash Neuro: Alert, no AMS No gross motor/sensory deficits Medical Decision Making and Emergency Department Course ED Department Course Patient presents to ED with complaints of L otalgia and low back pain. On exam the patient has L TM was mildly erythematous but with decreased light reflex compared to the R. No signi ficant of mastoid bilaterally. Mild R lower lateral thoracic tenderness. My DDx includes, bu t is not limited to: otitis media, otitis externa, chronic pain, muscle strain, muscle spasm , epidural abscess, vs other vs other. Discussed with pt that since he is immunocompromised I will treat him as though he does have an ear infection. He does have signs of OM, but it is mild. Will also provide pt with Rx for muscle relaxer's and an antiinflammatory to tx ba ck pain. I have given pt a referral to Dr. Dukes at his request, but he understands he may re quire a referral from a PCP in order to get an appointment. RTED precautions given. All ques tions and concerns addressed. Will discharge home with Rx for Augmentin, Naprosyn, and Flexe ril. At this time I do not appreciate a need for labs or imaging. Pt is well appearing. Records Reviewed Old medical records. Nursing notes. Five prior ED visits for unrelated complaints. Laboratory Evaluation Results None I personally reviewed the lab results and they have been posted to the chart. Pertinent po sitive and negative findings have been addressed appropriately. Radiology and EKG Evaluation Imaging Results None ED Diagnoses Final diagnoses Thoracic sprain and strain, initial encounter Acute left otitis media, recurrence not specified, unspecified otitis media type Disposition: ED Disposition Orders Discharge Condition at discharge: Stable Follow-up Information Follow up With Details Comments Contact Info [facility] Emergency Department If symptoms worsen [address] [facility] [address] [facility] MD Nehemiah In 4 days [address] [facility] [address] Kojo Dukes MD Call to schedule an appointment for follow up [address] [facility] [address] Per Pt None Discharge Medications: Discharge Medication List as of 05/12/2015 10:56 PM START taking these medications Details amoxicillin-clavulanate (AUGMENTIN) 875-125 MG per tablet Take 1 tablet by mouth 2 (two) ti mes daily., Starting 05/12/2015, Until Fri05/26/15, Print cyclobenzaprine (FLEXERIL) 10 MG tablet Take 1 tablet by mouth every 8 (eight) hours as nee ded for Muscle spasms., Starting 05/12/2015, Until 05/22/15, Print naproxen (NAPROSYN) 500 MG tablet Take 1 tablet by mouth 2 (two) times daily. For pain, Sta rting 05/12/2015, Until 05/11/16, Print Dictation software, [employer], used which may contain error for similar sounding words even af ter review. Personal communication requested for any clarification. Procedures Additional Documentation Procedures Attending Note: Documentation assistance provided by Mely West (Scribe). Information recorded by the scribe has been reviewed and validated by me. Manuel williamson with its contents. DO Rickey Alanis DO 05/13/15 0232 documented in this encounter Plan of Treatment Not on filedocumented as of this encounter Visit Diagnoses + + | Diagnosis | + + | Thoracic sprain and strain, initial encounter | + + | Acute left otitis media, recurrence not specified, unspecified otitis media type | + + documented in this encounter [...]
--- OUTSIDE RECORDS SUMMARY | ~2020-06-05 | XMS | Encounter Summary ---
Demographics + + + | Address | [address] | | | [place] [address] | + + + | Home Phone [...] Team Providers + +------+ + | Care Diagnostic Cardiac Sonographer Name | Role | Phone | + [...] | Required | | immunodefici | [address] | [address] [facility] | | | | | ency virus | [place]. | [facility] | | | | | (HIV) | [address], | [place], | | | | | disease | [place] [address] | [place] | | | | | (HCC) | Phone: | [phone] | | | | | | [phone] | Phone: | | | | | | Fax: | [phone] | | | | | | [phone] | Fax: | | | | | | | [phone] | +--------+ + + + + + [...] virus infection) | | | | Mailcode: [id number] | [place] [address] | ([facility]); | | | | [facility] | [phone] | Hyperlipidemia LDL | | | | [place], [place] | | goal < 100; | | | | [phone] | | Tachycardia; | | | | [phone] | | Unspecified asthma; | | | [...] He was last seen in the [facility] on 12/12 12/21. PCP: [...] gait. Labs: Lab Results Component Value Date [id number] 156* 09/04/2010 [id number] 9.0* 09/04/2010 HIVPCR 54 09/04/2010 Lab Results Component Value Date RPR Non-Reactive 09/04/2010 Lab Results Component Value Date CHOL 245 09/04/2010 LDL 142 09/04/2010 HDL 28 09/04/2010 TRI 406 09/04/2010 Lab Results Component Value Date [id number] 31 09/04/2010 Last CBC, CMP reviewed with [...]
--- OUTSIDE RECORDS SUMMARY | ~2020-06-05 | XMS | Encounter Summary ---
Demographics + + + | Address | [address] | | | [place] [address] | + + + | Home Phone | | + + + | Preferred Language | Unknown | + + + | Marital Status | Single | + + + | Samaritan Affiliation | Unknown | + + + | Race | Unknown | + + + | Ethnic Group | Unknown | + + + Author + + + | Author | Located Within [facility] | | | and [place] | + + + | Organization | Located Within [facility] | | | and [place] [...] Team Providers + +------+ + | Care Manpower Development Advisor Name | Role | Phone | + +------+ + | Jerome Young MD | PCP | | + +------+ + Encounter Details +--------+ + + + + | Date | Type | Department | Care Team | Description | +--------+ + + + + | 10/22/ | Hospital | [facility] | Anel Morelos, | Dyspnea; Chest pain; | | 2014 - | Encounter | [facility] | [address] | Chronic back pain; | | | | CARE [address]LO[address] | [place] [address] | COPD exacerbation | | 10/24/ | | [address] | [phone] | ([facility]); Current | | 2013 | | [place], [place] | | smoker; Depression | | | | [phone] | | with anxiety; | | | | [phone] | | Productive cough; | | | | | | HIV (human | | | | | | immunodeficiency | | | | | | virus infection) | | | | | | ([facility]); Neurosyphilis | | | | | | in male; 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; Non | | | | | | compliance with | | | | | | medical treatment; | | | | | | SIRS (systemic | | | | | | inflammatory | | | | | | response syndrome) | | | | | | ([facility]); | | | | | | Hyperlipidemia; | | | | | | Acute bronchitis | +--------+ + + + + Social [...] documented as of this encounter Discharge Summaries Pan Ortiz MD - 10/24/2014 3:41 PM PST Discharge Summaries by Pan Ortiz MD at 10/24/14 1541 Author: Pan Ortiz MD Service: Hospitalist Author Type: Physician Filed: 10/24/142004 Date of Service: 10/24/141540 Status: Signed Police Communications Dispatcher: Pan Ortiz MD (Physician) [facility] Service: Hospitalist Discharge Summary Date of Admission: 10/22/2014 Date of Discharge: 10/24/2014 Discharge Provider: Pan Ortiz MD Treatment Team: Consulting Physician: Kathleen Tipton MD Admitting Provider: Anel Morelos MD Discharge Diagnoses: Principal Problem: Acute bronchitis Active Problems: HIV (human immunodeficiency virus infection) Depression with anxiety Chronic back pain COPD exacerbation Current smoker Neurosyphilis in male Chest pain Resolved Problems: * No resolved hospital problems. * Procedures: * No surgery found * BRIEF HISTORY OF PRESENTATION: Slava Anderson is a 49 y.o. male who per H and P: The patient is a 49 y.o. 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 Enriquez. Patient has bilateral blurred vision for the past 4 months, felt to be secondary to neurosyphilis; was referred to Dr. Grace. 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 The patient's partner is currently hospitalized and being ruled out for tuberculosis. Patient presented to the ED for evaluation of cough and chest pain. Patient has not yet rec eived his flu shot. Denied any recent URI symptoms. He reported productive cough for the pas t 3 days. Unable to tell the color of the sputum but denies any hemoptysis. He has shortness of breath, wheezing, and pleuritic chest pain with cough, maximum intensity 8/10. No fevers or chills. Denies any history of [place], congestive heart failure. Denies any radiation of the chest pain to the jaw, arm, interscapular area. Not associated with nausea, vomiting, dizzin ess, lightheadedness, or syncope. Denies any dysphagia or aspiration. No recent travel or ho spitalization. No new pets. Has history of GERD but this pain is different. Known history of asthma/COPD. Was intubated as a child. Reports 10-pound weight loss in the past 2 months an d poor appetite. Workup in the emergency room showed normal CBC with an MCV of 79, CMP normal except random blood sugar of 132, and normal renal function. Total protein elevated at 8.4, globulin 5.1, and albumin of 3.3, consistent with HIV status. GFR is greater than 60. C-reactive protein i s normal. Lactic acid in the normal range. Cardiac enzymes negative. EKG did not show any ac [place] injury or ischemia. Chest x-ray official report is pending. No acute infiltrates, consol idation, cavitary lesions noted per my read. Dr. Adam consulted Dr. Tipton, infectious disease. Per her recommendations, influenza swab and nasopharyngeal culture with DFA ordered. Patient will be placed in droplet isolatio n until tuberculosis is ruled out. Hospitalist service consulted to admit. Levaquin administ ered in the ED per recommendations of infectious disease. HOSPITAL COURSE: pt admitted to r/o TB and was in negative airflow isolation. He also had consultation with dr. Tipton. levaquin IV was also ordered in addition to pen G IV q4hr. Pt didn't have any symptoms other than cough, which was mostly nonproductive. He remained afebrile during his short stay. He didn't produce the 3 sputums as requested. H is vitals remained stable throughout the hospital stay. He was ready to be discharged 10/24/2014. He will continue Levaquin for another four days. And he will continue IV penicillin G outpatient to Friday and then to follow with infectio us disease outpatient. He has been known for being noncompliant. He does have a roommate which is recently moved back with him. His roommate is also quite noncompliant with medical community. He is roomm ate has tuberculosis. Past Medical History Diagnosis Date HIV (human [...] the lungs 2 (two) time s daily. penicillin G potassium 39774 UNIT/ML Inject 200 mLs into the vein every 4 (four) hours. 87884 mL 0 ritonavir (NORVIR) 100 MG TABS tablet Take 100 mg by mouth daily. 120 tablet 3 HYDROcodone-acetaminophen (NORCO) 5-325 MG per tablet Take 1 tablet by mouth every 6 (s ix) hours as needed for Pain. 30 tablet 0 DISCHARGE EXAM Vital Signs: BP 136/77 | Pulse 94 | Temp(Src) 97.3 F (36.3 C) (Oral) | Resp 20 | Ht 1.753 m (5' 9.02 ") | Wt 90.719 kg (200 lb) | BMI 29.52 kg/m2 | SpO2 97% General Appearance: No apparent distress. Conversive and appropriate to place and person. HEENT: Normocephalic, atraumatic, pupils EOMI, PERRLA. Nose: no septal deviation or dischar ge. Ears: normal size, location, and contour. Throat dry and without exudates. NECK: is supple, full ROM, nontender. LUNGS: no coughing during my visit. Non productive. clear to auscultation bilaterally with no wheezing, No rales or rhonchi audible. HEART: S1S2, Regular rate and rhythm without murmurs, gallops or rubs. ABDOMEN: Bowel sound is normoactive, abdomen is soft, non-tender non-distended ,no mass pal pable. EXTREMITIES:No lower extermity edema, No clubbing or cyanosis bilaterally. NEURO: Cranial Nerves 2-12 appears intact, Gait not tested, Muscle strength good bilaterall y, Sensation grossly intact. PSYCH: Alert, awake and Oriented x3. SKIN: No bruises, rashes, lesions, or ulcers. right nipple piercing. DATA Recent Labs Lab 10/23/140 10/22/14 0320 WBC 4.9 6.5 RBC 4.63 5.06 HGB 12.3* 13.2 HCT 37.3* 40.3 MCV 80.5 79.6* MCH 26.5* 26.1* MCHC 32.9 32.8 RDW 48.1 47.7 PLT 182 225 MPV 8.7 8.4 NEUTOPHILPCT -- 54.1 MONOPCT -- 8.0 Recent Labs Lab 10/23/14 0420 NA 133* K 4.3 CL 100 CO2 27 ANIONGAP 10 GLUF 133* BUN 13 CREATININE 0.72 BCR 18 CA 9.0 ALB 3.7 GLOB 3.8 PROT 7.5 BILITOT 0.3 ALT 10 AST 15 EGFR >60 No results found for this basename: HGBA1C, LABGLYC, in the last 168 hours Recent Labs Lab 10/22/14 0320 APTT 26 INR 1.0 No results found for this basename: TSH, T3FREE, FREET4, in the last 168 hours Recent Labs Lab 10/22/142000 CKTOTAL 47* TROPONINI <0.020 CKMBINDEX 1.1 HDL CHOL Date Value Range Status 10/23/2014 30* >40 mg/dL Final Testing performed at [facility], [address] [place] [address] Triglycerides Date Value Range Status 10/23/2014 80 <150 mg/dL Final Testing performed at [facility], [address] [place] [address] LDL CALC Date Value Range Status 10/23/2014 76 <100 mg/dL Final Testing performed at [facility], [address] [place] [address] CHOLESTEROL Date Value Range Status 10/23/2014 122 <200 mg/dL Final Testing performed at [facility], [address] [place] [address] X-ray Chest 1 View 10/24/2014 HISTORY: 49-year-old male, immune suppressed, infection TECHNIQUE: 1. Comput er enhanced AP view radiographic examination of the chest. 24 October. 10:41 Prior study fo r review : 22 October 2014 FINDINGS: PICC line is stable. The sclerosis previously seen i n the diaphysis of the clavicles less conspicuous. Could be artifactual previously Lung mar kings are slightly coarse but symmetric. Lung volumes are unchanged. No consolidative infilt rate or effusion. No pneumothorax Stable skeleton to technique. Cosmetic ring about the rig ht male nipple 10/24/2014 1. No convincing infiltrate, but immunosuppression lower sensitivity and spec ificity. Xr Chest Ap Portable 10/22/2014 SLAVA ANDERSON XR CHEST 1 VIEW 10/22/2014 4:59 AM HISTORY: 49 years. Male. C ough, shortness of breath rule out pneumonia TECHNIQUE: XR CHEST 1 VIEW. Frontal view of th e chest dual-energy technique. Total of 3 images obtained. COMPARISON: 06/28/2014 FINDING S: Cardiac size is normal. Normal pulmonary vascular pattern. Lungs are expanded without pne umothorax or effusion. No segmental infiltrate, pulmonary nodule or mass, hilar or mediastin al adenopathy. There is now evidence of a sclerotic area in the mid portion of the right cla vicle possibly representing residual of prior,/fracture correlate with clinical history. Alt yohana there is a history of malignancy a bony metastatic disease can't be excluded. Degenera tive changes of the acromioclavicular joints again noted. And moderate thoracic spondylosis. 10/22/2014 1. No radiographic evidence of acute pulmonary disease. 2. Now seen is a scl erotic lesion in the midportion of the right clavicle see above discussion correlate clinica lly 3. Moderate thoracic spondylosis. Electronically signed by Liban Guerra MD on 1 12/23/2013 6:23 AM PLAN Discharge to home in stable condition. Code Status: Full Code No discharge procedures on file. Follow up: Zita Enriquez MD [facility] [place] [address] On 10/28/2014 Medication List START taking these medications levofloxacin 500 MG tablet QTY: 4 tablet Refills: 0 Commonly known as: LEVAQUIN Take 1 tablet by mouth daily. nicotine 21 MG/24HR QTY: 28 patch Refills: 0 Commonly known as: NICODERM CQ Place 1 patch onto the skin daily. CONTINUE taking these medications albuterol (2.5 MG/3ML) 0.083% nebulizer solution QTY: 90 mL Refills: PRN Commonly known as: PROVENTIL inhale contents of 1 vial in nebulizer every 4 hours if needed for shortness of breath darunavir 800 MG tablet QTY: 120 tablet Refills: 3 Commonly known as: PREZISTA Take 800 mg by mouth daily. emtricitabine-tenofovir 200-300 MG per tablet QTY: 120 tablet Refills: 3 Commonly known as: TRUVADA Take 1 tablet by mouth daily. etodolac 500 MG 24 hr tablet QTY: 30 tablet Refills: 0 Commonly known as: LODINE XL Take 1 tablet by mouth daily. fluticasone 220 MCG/ACT inhaler Refills: 0 Commonly known as: FLOVENT HFA HYDROcodone-acetaminophen 5-325 MG per tablet QTY: 30 tablet Refills: 0 Commonly known as: NORCO Take 1 tablet by mouth every 6 (six) hours as needed for Pain. penicillin G potassium 58440 UNIT/ML QTY: 88339 mL Refills: 0 Doctor's comments: First dose of 4 million Units to be given at time of PICC insertion. Ad ditional doses to be provided by [facility]. Inject 200 mLs into the vein every 4 (four) hours. ritonavir 100 MG Tabs tablet QTY: 120 tablet Refills: 3 Commonly known as: NORVIR Take 100 mg by mouth daily. 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 You may get the following medications from any pharmacy - levofloxacin 500 MG tablet - nicotine 21 MG/24HR Discharge took 56 minutes, to include final examination, discussion of admission, and prepa ration of prescriptions, instructions for on-going care, follow-up and documentation of disc harge summary. Pan Ortiz MD @edward docudamien huertas in this encounter Medications at Time of [...] Progress Notes Conversion Transaction, Provider Unknown - 10/24/2014 4:24 PM PSTFormatting of this note m ight be different from the original. Nurse Progress Note by Cici Gomez RN at 10/24/141623 Author: Cici Gomez RN Service: (none) Author Type: Registered Nurse Filed: 10/24/141 Date of Service: 10/24/141623 Status: Signed Police Communications Dispatcher: Cici Gomez RN (Registered Nurse) DC instructions and medications were discussed and all questions answered at this time. Tr i [facility] will transport pt at 1730 to his resident. [facility] infusion nurse was notifie kalyn and I instructed pt to call [facility] infusion nurse when he arrives home to continue infu sions. 1630 dose of PCN given at [facility]. Cici, RN onver brett Transaction, Provider Unknown - 10/24/2014 2:39 PM PST Case Management by LANDY Woody at 10/24/14 1439 Author: LANDY Woody Service: (none) Author Type: Aerospace Project Manager Filed: 10/24/14 9762 Date of Service: 10/24/141438 Status: Signed Police Communications Dispatcher: LANDY Woody (Aerospace Project Manager) 10/24/14 1400 Discharge Planning Evaluation Admitting Diagnosis Acute Bronchitis Anticipated Disposition Facility Type Home;Home infusion [facility] p/c to Pt for discharge planning (64,51) currently on TB Isolation. Pt states he receiv es IV Abx in the past from [facility]. 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 Tipton per Dr. Ortiz. [facility] p/c to Katelyn at [facility] Pt's insurance is [email or web address], does not accept t his insurance because service is not reimbursed. [facility] p/c to [facility] Pt's insurance is [email or web address], does not accept this ins urance because service is not reimbursed. DCP: Home with [facility] DEEDEE LANGE, Driver [employer] [phone] cell C onver brett Transaction, Provider Unknown - 10/24/2014 2:14 PM PST Therapy Progress Note by SEPIDEH Iraheta at 10/24/14 6574 Author: SEPIDEH Iraheta Service: (none) Author Type: Massage Therapist Filed: 10/24/14 141 Date of Service: 10/24/141413 Status: Signed Police Communications Dispatcher: SEPIDEH Iraheta (Massage Therapist) 10/24/141413 MT Last Visit MT Received On 10/24/14 MT Therapy Visit On hold NEKathleen Prakash S - 10/24/2014 7:39 AM PST Progress Notes by Kathleen Tipton MD at 10/24/14 0739 Author: Kathleen Tipton MD Service: Infectious Disease Author Type: Physician Filed: 10/31/14 1612 Date of Service: 10/24/1439 Status: Signed Police Communications Dispatcher: Kathleen Tipton MD (Physician) [facility] Service: Infectious Disease Progress Note Hospital Day: LOS: 2 days Post-Op Day: * No surgery found * SUBJECTIVE Patient Summary: See ID consult note Events Overnight: Patient is feeling better today. Cough has decreased and hardly pr oductive. No wheezing. Breathing is better. Denies chest pain. No fever, chills, sweats and diarrhea. Feels that he can go home today. I was notified that Dr. Dukes has allowed his partner to go off airborne precautions and TB smears for the partner apparently had been negative. Scheduled Medications aspirin 81 mg Oral Daily with breakfast darunavir 800 mg Oral Daily emtricitabine-tenofovir 1 tablet Oral Daily etodolac 200 mg Oral BID fluticasone 1 puff Inhalation BID heparin (porcine) 5000 unit/0.5mL 5,000 Units Subcutaneous Q8H influenza vaccine quadrivalent-split 0.5 mL Intramuscular Once Immunization ipratropium-albuterol 3 mL Nebulization Q6H lactobacillus 1 packet Oral BID levofloxacin 750 mg Intravenous Q24H nicotine 1 patch Transdermal Daily omeprazole 20 mg Oral QAM AC penicillin G potassium 4 Million Units Intravenous Q4H ritonavir 100 mg Oral Daily Continuous Infusions sodium chloride (IV) 75 mL/hr at 10/23/14 1936 PRN Medications acetaminophen, acetaminophen, albuterol, benzonatate, HYDROcodone-acetaminophen, LORazepam, nitroGLYCERIN, ondansetron, ondansetron, polyethylene glycol, traMADol, zolpidem OBJECTIVE Vital Signs: BP 122/78 | Pulse 98 | Temp(Src) 98.1 F (36.7 C) (Oral) | Resp 18 | Ht 1.753 m (5' 9.02 ") | Wt 90.719 kg (200 lb) | BMI 29.52 kg/m2 | SpO2 93% Temp: [97.4 F (36.3 C)-98.4 F (36.9 C)] 98.1 F (36.7 C) (10/24 734) BP: (99-130)/(51-83) 122/78 mmHg (10/24 734) Heart Rate: [97-110] 98 (10/24 734) Resp: [16-20] 18 (10/24 734) SpO2: [91 %-100 %] 93 % (10/24 734) Height: [175.3 cm (5' 9.02")] 175.3 cm (5' 9.02") (10/23 1300) Weight: [90.719 kg (200 lb)] 90.719 kg (200 lb) (10/23 1300) BMI (Calculated): [29.6] 29.6 (10/23 1300) Physical Exam VS reviewed General: Not in distress HEENT: Normocephalic, anicteric sclerae, no conjunctival lesions, EOM intact, pale nasal m ucosae, no sinus tenderness, no oral thrush, no pharyngeal lesions, supple neck, no cervical lymphadenopathy Lungs: No adventitious breath sounds CV: Tachycardic, regular rhythm, no murmur Abdomen: Soft, no tenderness, no hepatosplenomegaly Extremities: No edema, positive pulses PICC site unremarkable Skin: No new rash Neurologic: Oriented x 3, no focal weakness Psychiatric: Cooperative for clinical encounter DATA CD4 356 HIV viral load 244 Nasopharyngeal viral DFA negative; culture pending Impression 1. No convincing infiltrate, but immunosuppression lower sensitivity and specificity. X-ray chest 1 view [[id number]] Film reviewed PROBLEM LIST Principal Problem: Acute bronchitis Active Problems: HIV (human immunodeficiency virus infection) Depression with anxiety Chronic back pain COPD exacerbation Current smoker Neurosyphilis in male Chest pain ASSESSMENT & PLAN Cough, shortness of breath - possibly secondary to bronchitis. Patient has underlying hist ory of COPD. Suspect that this is most likely viral in etiology, less likely bacterial. Rap id influenza screen negative. Nasopharyngeal viral DFA is negative. Oxygen saturation has been stable. There has been concern expressed for the possibility of tuberculosis as his partner is melquiades mota ruled out for TB. Due to the patient's immunocompromised status, however, particularly wit h a history of noncompliance, patient has been placed by hospitalist service in airborne pre cautions and AFB sputum cultures requested - previously had no sputum specimen collected; 1 specimen sent this morning. QuantiFERON-TB gold test has been requested and result is pendi ng. CXR shows no significant infiltrates. Highly unlikely that patient has active pulmonar y TB. Discussed with patient that he is to avoid going to public places for now. We will continue levofloxacin for now to cover for bacterial/atypicals - please prescribe o ral levofloxacin to complete 7 days of total antibiotic Rx. Keep ID clinic ff up with Dr. Delbert thornton on 10/29 HIV - it is noted that he had good response on Truvada and boosted darunavir. However, he has not been taking his medications for the past couple of weeks. CD4 and HIV viral load on this hospitalization are fairly stable for the patient Neurosyphilis - patient states that he has been adherent with the outlined penicillin thera py by Dr. Enriquez. PCN G 20 M units through continuous infusion/pump will be resumed in the outpatient setting; order for outpatient Pharmacy made . Patient may eventually need to hav e a repeat LP, to evaluate for efficacy of therapy. He also is supposed to follow up with Kalyn Grace in ophthalmology Case had been discussed with Dr. Ortiz and Social Work Code Status: Full Code KATHLEEN TIPTON MD 10/24/2014 Pan Hammond MD - 10/23/2014 4:27 PM PST Progress Notes by Pan Ortiz MD at 10/23/14 0088 Author: Pan Ortiz MD Service: Hospitalist Author Type: Physician Filed: 10/23/14 8855 Date of Service: 10/23/14 5220 Status: Signed Police Communications Dispatcher: Pan Ortiz MD (Physician) [facility] Service: Hospitalist Progress Note Hospital Day: LOS: 1 day Post-Op Day: * No surgery found * SUBJECTIVE Patient Summary: per H and P: The patient is a 49 y.o. male with significant past me dical history of HIV, supposed to be on Truvada and boosted darunavir, on 09/27 CD4 356, CD4 % 13.2; HIV viral load 244, on IV penicillin G for neurosyphilis starting 10/13, COPD, curren tly denies smoking. Patient states that he has not been able to take his antiretroviral medi cations for about two weeks because he has difficulty finding them. He has been having blurr ed vision, left eye more problematic compared to right. He states he saw Dr. Grace about thre e weeks ago and is supposed to have a follow-up with him this week. He denies eye pain or oc ular drainage. He comes in today because of cough, which he states occasionally productive of whitish phle gm and shortness of breath. This symptoms started about 2-3 days ago. He states he has some wheezing. He has subjective fevers. He has generalized body achiness (patient does have hist ory of chronic pain). He states he has not been eating much, because he has difficulty cooki ng. He is not certain if he has lost any weight. He has some chills. He denies diaphoresis. He states he has pressure-like, generalized headaches. He feels tired. He denies neck pain a nd stiffness. He states that he is no longer with his partner, who is also HIV positive and nonadherent w ith this medications. That patient's partner is currently admitted and is being ruled out fo r tuberculosis. According to patient, he has never tested positive for tuberculosis. Patient also thinks that he has not received his pneumococcal vaccine and has not received influenz a vaccine yet. With regards to the penicillin therapy, he states that he has been taking IV penicillin as he has been instructed. Events Overnight: 10/22 pt complained of bilateral shoulder pain. Also coughing. Pt lives alone, but has a ro ommate, who is also very noncompliant with the medical community. Pt is well known to Dr. Kaity vazquez and infectious disease community. 10/23 patient stable. Denies any fever or chills denies any nausea and vomiting. Is askin g when he can go home. ROS: 12 point ROS reviewed and negative other than above. Scheduled Medications aspirin 81 mg Oral Daily with breakfast darunavir 800 mg Oral Daily emtricitabine-tenofovir 1 tablet Oral Daily etodolac 500 mg Oral Daily fluticasone 1 puff Inhalation BID heparin (porcine) 5000 unit/0.5mL 5,000 Units Subcutaneous Q8H [START ON 10/24/2014] influenza vaccine quadrivalent-split 0.5 mL Intramuscular Once I mmunization ipratropium-albuterol 3 mL Nebulization Q6H lactobacillus 1 packet Oral BID levofloxacin 750 mg Intravenous Q24H nicotine 1 patch Transdermal Daily omeprazole 20 mg Oral QAM AC penicillin G potassium 4 Million Units Intravenous Q4H ritonavir 100 mg Oral Daily Continuous Infusions sodium chloride (IV) 75 mL/hr at 10/23/14 0305 PRN Medications acetaminophen, acetaminophen, albuterol, benzonatate, HYDROcodone-acetaminophen, LORazepam, nitroGLYCERIN, ondansetron, ondansetron, polyethylene glycol, traMADol, zolpidem OBJECTIVE Vital Signs: BP 130/61 | Pulse 100 | Temp(Src) 98.3 F (36.8 C) (Oral) | Resp 17 | Ht 1.753 m (5' 9.0 2") | Wt 90.719 kg (200 lb) | BMI 29.52 kg/m2 | SpO2 94% Physical Exam: General Appearance: No apparent distress. Conversive and appropriate to place and person. HEENT: Normocephalic, atraumatic, pupils EOMI, PERRLA. Nose: no septal deviation or dischar ge. Ears: normal size, location, and contour. Throat dry and without exudates. NECK: is supple, full ROM, nontender. LUNGS: no coughing during my visit. Non productive. clear to auscultation bilaterally with no wheezing, No rales or rhonchi audible. HEART: S1S2, Regular rate and rhythm without murmurs, gallops or rubs. ABDOMEN: Bowel sound is normoactive, abdomen is soft, non-tender non-distended ,no mass pal pable. EXTREMITIES:No lower extermity edema, No clubbing or cyanosis bilaterally. NEURO: Cranial Nerves 2-12 appears intact, Gait not tested, Muscle strength good bilaterall y, Sensation grossly intact. PSYCH: Alert, awake and Oriented x3. SKIN: No bruises, rashes, lesions, or ulcers. right nipple piercing. DATA Recent Labs Lab 10/23/1441910/22/1431910/17/14 1200 WBC 4.9 6.5 5.1 RBC 4.63 5.06 4.65 HCT 37.3* 40.3 37.2* MCV 80.5 79.6* 80.0 MCH 26.5* 26.1* 26.1* MCHC 32.9 32.8 32.7 RDW 48.1 47.7 47.3 PLT 182 225 207 MPV 8.7 8.4 8.6 DIFFTYPE MANUAL AUTOMATED MANUAL Recent Labs Lab 10/23/1441910/22/1431910/17/14 1200 K 4.3 3.8 4.3 CL 100 104 99 CO2 27 24 31 ANIONGAP 10 13 9 GLUF 133* 132* 98 BUN 13 17 19 CREATININE 0.72 0.82 0.70 BCR 18 20 27 CA 9.0 8.3* 9.0 PROT 7.5 8.4* 7.9 ALB 3.7 3.3* 3.9 GLOB 3.8 5.1* 4.0 BILITOT 0.3 0.2 0.3 ALP 83 104 108 AST 15 16 14 ALT 10 16 11 EGFR >60 >60 >60 BMP: Recent Labs Lab 10/23/1441910/22/1431910/17/14 1200 NA 133* 137 135 K 4.3 3.8 4.3 CL 100 104 99 CO2 27 24 31 ANIONGAP 10 13 9 GLUF 133* 132* 98 BUN 13 17 19 CREATININE 0.72 0.82 0.70 BCR 18 20 27 CA 9.0 8.3* 9.0 EGFR >60 >60 >60 No results found for this basename: MG, in the last 168 hours Recent Labs Lab 10/22/14 0320 APTT 26 INR 1.0 Recent Labs Lab 10/22/14200010/22/14 1235 10/22/14 0320 CKTOTAL 47* 38* 42* TROPONINI <0.020 <0.020 -- CKMBINDEX 1.1 UNABLE TO CALCULATE UNABLE TO CALCULATE Xr Chest Ap Portable 10/22/2014 SLAVA ANDERSON XR CHEST 1 VIEW 10/22/2014 4:59 AM HISTORY: 49 years. Male. C ough, shortness of breath rule out pneumonia TECHNIQUE: XR CHEST 1 VIEW. Frontal view of th e chest dual-energy technique. Total of 3 images obtained. COMPARISON: 06/28/2014 FINDING S: Cardiac size is normal. Normal pulmonary vascular pattern. Lungs are expanded without pne umothorax or effusion. No segmental infiltrate, pulmonary nodule or mass, hilar or mediastin al adenopathy. There is now evidence of a sclerotic area in the mid portion of the right cla vicle possibly representing residual of prior,/fracture correlate with clinical history. Alt yohana there is a history of malignancy a bony metastatic disease can't be excluded. Degenera tive changes of the acromioclavicular joints again noted. And moderate thoracic spondylosis. 10/22/2014 1. No radiographic evidence of acute pulmonary disease. 2. Now seen is a scl erotic lesion in the midportion of the right clavicle see above discussion correlate clinica lly 3. Moderate thoracic spondylosis. Electronically signed by Liban Gurera MD on 1 12/23/2013 6:23 AM PROBLEM LIST ASSESSMENT & PLAN Principal Problem: Acute bronchitis Active Problems: HIV (human immunodeficiency virus infection) Depression with anxiety Chronic back pain COPD exacerbation Current smoker Neurosyphilis in male Chest pain Principal Problem: Acute bronchitis 10/22 pt still has cough. Will rx sandrasaljose guadalupe. Bronchodilations. Continue with antibio tics per dr. Tipton. Spoke with her briefly today. 10/23 stable and improving. No signs of respiratory difficulty. Patient has less cough t sara as well. He claims Tessalon Perles is helping. Spoke with dr. Tipton briefly. Two waiting for results TB test. Active Problems: R/o TB; pt is on reverse air isolation due to risk of having TB. HIV (human immunodeficiency virus infection) Cont with retroviral if pt willing to maintain. He claimed he lost the meds 2 wks ago, and didn't care to refill them. Pt is very noncompliant with medical community. Depression with anxiety Chronic back pain; on chronic pain meds. COPD exacerbation; 10/22 stable. No respiratory distress noted. Current smoker 10/22 recommend cessation. Neurosyphilis in male; affecting the left eye. With diminished vision of this eye. Hospital records reviewed. Labs and radiologic studies and reports reviewed. Discussed find ings with participating physicians. Old records reviewed on EMR. Condition guarded and high risk for cardiopulmonary decompensation due to underlying condit ions Disposition: inpatient Code Status: Full Code Pan Ortiz MD 10/23/2014 onversio n Transaction, Provider Unknown - 10/23/2014 1:14 PM PSTFormatting of this note might be di fferent from the original. Case Management by LANDY Jacob LICSW at 10/23/14 1314 Author: LANDY Jacob LICSW Service: (none) Author Type: Driver Lifter Of Sanitation Truck Filed: 10/23/14 9032 Date of Service: 10/23/14 1314 Status: Signed Police Communications Dispatcher: LANDY Jacob LICSW (Driver Lifter Of Sanitation Truck) 10/23/14 1300 Discharge Planning Evaluation Admitting Diagnosis (Chest pain and SOB) Readmission Yes-within 14 days Living Arrangements Alone Support Systems None Type of Residence Private residence House type Apartment Bathrooms on 1st Floor 1-Full Independent with ADL's Yes Independent with Mobility Yes Home Care Services Other (Comment) (He reports he needs assistance) Caregiver after Discharge Yes Mental Status Oriented Power of Operations Manager/Coordinator No Anticipated Discharge Plan Post Acute Care Needs Other (comment) (HIV, ID, etc) Resources Financial concerns Yes Transportation issues Yes Prescription Plan Yes Name of Pharmacy ([facility] [address]) Anticipated Disposition Facility Type Home Met with patient and discussed discharge planning, Pt is a 49 y.o., male with multiple heal th conditions. He requires multiple health agencies assistance. He report no support edgard crawford However, Inga Kaity [phone] is his case managers through the [employer] office in [place]. He is currently working with housing within the same office with Kay. However, November he will have to work with [facility] for housing needs. His current plan is to return home. He may require some Home Health services. He has limit ed vision is his left eye and cannot see how totake his daily meds due to not being able to see the instructions of when, where, and how to take his medications. Patient's PCP is: Zita Enriquez Patient's insurance:[employer]/Medicare Coverage concerns: No Medication coverage/concerns: No Maria Teresa Bedside Delivery: Community resources utilized / needed: Plant Operations Vice President, Transportation, HIV medication ashley francis due to poor vision, antibiotics, and currently he has a PICC line. Assistance in transportation: Yes Identification of any specific education / training: TBD Barriers to Discharge / Alternative housing needed: TBD Anticipated DCP: Home with Home Health. He also needs some basic in home care. Delaney MatuteFrancisco Veronika saldana S - 10/23/2014 12:36 PM PST Progress Notes by Kathleen Tipton MD at 10/23/14 1236 Author: Kathleen Tipton MD Service: Infectious Disease Author Type: Physician Filed: 10/31/14 1602 Date of Service: 10/23/14 1236 Status: Signed Police Communications Dispatcher: Kathleen Tipton MD (Physician) [facility] Service: Infectious Disease Progress Note Hospital Day: LOS: 1 day Post-Op Day: * No surgery found * SUBJECTIVE Patient Summary: See ID consult note Events Overnight: Has rhinorrhea. States he is still coughing with clear phlegm. Fe els short of breath. O2 sats ok in room air. No pleurisy. Has a headache when he coughs. No ocular pain, no new visual problems. No abdominal pain, nausea, vomiting, diarrhea. No new skin rash. Scheduled Medications aspirin 81 mg Oral Daily with breakfast darunavir 800 mg Oral Daily emtricitabine-tenofovir 1 tablet Oral Daily etodolac 500 mg Oral Daily fluticasone 1 puff Inhalation BID heparin (porcine) 5000 unit/0.5mL 5,000 Units Subcutaneous Q8H ipratropium-albuterol 3 mL Nebulization Q6H lactobacillus 1 packet Oral BID levofloxacin 750 mg Intravenous Q24H nicotine 1 patch Transdermal Daily omeprazole 20 mg Oral QAM AC penicillin G potassium 4 Million Units Intravenous Q4H ritonavir 100 mg Oral Daily Continuous Infusions sodium chloride (IV) 75 mL/hr at 10/23/14 0305 PRN Medications acetaminophen, acetaminophen, albuterol, benzonatate, HYDROcodone-acetaminophen, LORazepam, nitroGLYCERIN, ondansetron, ondansetron, polyethylene glycol, traMADol, zolpidem OBJECTIVE Vital Signs: BP 132/77 | Pulse 110 | Temp(Src) 99.7 F (37.6 C) (Axillary) | Resp 16 | Ht 1.753 m (5' 9") | SpO2 96% Temp: [97.9 F (36.6 C)-99.7 F (37.6 C)] 98.4 F (36.9 C) (10/23 1253) BP: (101-142)/(55-95) 101/55 mmHg (10/23 125) Heart Rate: [98-112] 108 (10/23 1253) Resp: [16-20] 16 (10/23 1253) SpO2: [91 %-99 %] 91 % (10/23 1253) Height: [175.3 cm (5' 9.02")] 175.3 cm (5' 9.02") (10/23 1300) Weight: [90.719 kg (200 lb)] 90.719 kg (200 lb) (10/23 1300) BMI (Calculated): [29.6] 29.6 (10/23 1300) Physical Exam VS reviewed General: Not in distress HEENT: Normocephalic, anicteric sclerae, no conjunctival lesions, EOM intact, pale nasal m ucosae, no sinus tenderness, no oral thrush, no pharyngeal lesions, supple neck, no cervical lymphadenopathy Lungs: No adventitious breath sounds CV: Tachycardic, regular rhythm, no murmur Abdomen: Soft, no tenderness, no hepatosplenomegaly Extremities: No edema, positive pulses PICC site unremarkable Skin: No new rash Neurologic: Oriented x 3, no focal weakness Psychiatric: Cooperative for clinical encounter DATA CBC: Lab Results Component Value Date WBC 4.9 10/23/2014 RBC 4.63 10/23/2014 HGB 12.3* 10/23/2014 HCT 37.3* 10/23/2014 MCV 80.5 10/23/2014 MCH 26.5* 10/23/2014 MCHC 32.9 10/23/2014 RDW 48.1 10/23/2014 PLT 182 10/23/2014 MPV 8.7 10/23/2014 DIFFTYPE MANUAL 10/23/2014 WBC: Lab Results Component Value Date WBC 4.9 10/23/2014 NEUTABSMAN 2.2 10/23/2014 NEUTROABS 3.5 10/22/2014 NEUTROMAN 45 10/23/2014 LYMPHOABS 2.1 10/23/2014 LYMPHOMAN 42 10/23/2014 LYMPHSABS 2.3 10/22/2014 LYMPHOPCT 35.0 10/22/2014 MONOABSMAN 0.2 10/23/2014 MONOMAN 5 10/23/2014 MONOPCT 8.0 10/22/2014 EOSINOABS 0.1 10/23/2014 EOSINOMAN 1 10/23/2014 EOSABS 0.1 10/22/2014 EOSPCT 2.2 10/22/2014 BASOSABS 0.0 10/22/2014 BASOPCT 0.7 10/22/2014 BANDSPCT 4 10/23/2014 ATYLMPCT 3 10/23/2014 ATYLYMABS 0.1* 10/23/2014 COMDIFF SLIDE SCANNED, AGREES WITH AUTOMATED RESULTS. 10/22/2014 CMP: Lab Results Component Value Date NA 133* 10/23/2014 K 4.3 10/23/2014 CL 100 10/23/2014 CO2 27 10/23/2014 ANIONGAP 10 10/23/2014 GLUF 133* 10/23/2014 BUN 13 10/23/2014 CREATININE 0.72 10/23/2014 BCR 18 10/23/2014 CA 9.0 10/23/2014 PROT 7.5 10/23/2014 ALB 3.7 10/23/2014 GLOB 3.8 10/23/2014 BILITOT 0.3 10/23/2014 ALP 83 10/23/2014 AST 15 10/23/2014 ALT 10 10/23/2014 EGFR >60 10/23/2014 Micro: APPLICATION SUPPORT viral DFA pending; rapid flu negative No new radiology data 10/22 CXR FINDINGS: Cardiac size is normal. Normal pulmonary vascular pattern. Lungs are expanded without pneum othorax or effusion. No segmental infiltrate, pulmonary nodule or mass, hilar or mediastinal adenopathy. There is now evidence of a sclerotic area in the mid portion of the right clavi jonathon possibly representing residual of prior,/fracture correlate with clinical history. Altho ugh there is a history of malignancy a bony metastatic disease can't be excluded. Degenerati ve changes of the acromioclavicular joints again noted. And moderate thoracic spondylosis. IMPRESSION: 1. No radiographic evidence of acute pulmonary disease. 2. Now seen is a sclerotic lesion in the midportion of the right clavicle see above discus brett correlate clinically 3. Moderate thoracic spondylosis. LEM LIST Principal Problem: Acute bronchitis Active Problems: HIV (human immunodeficiency virus infection) Depression with anxiety Chronic back pain COPD exacerbation Current smoker Neurosyphilis in male Chest pain ASSESSMENT & PLAN Cough, shortness of breath - possibly secondary to bronchitis. Patient has underlying hist ory of COPD. Suspect that this is most likely viral in etiology, less likely bacterial. Rap id influenza screen negative. Nasopharyngeal viral DFA has also been requested. Oxygen sat uration has been stable. I have recommended that patient be placed in droplet precautions. There has been concern expressed for the possibility of tuberculosis as his partner is melquiades mota ruled out for TB. Due to the patient's immunocompromised status, however, particularly wit h a history of noncompliance, patient has been placed by hospitalist service in airborne pre cautions and AFB sputum cultures requested - no specimen sent yet. QuantiFERON-TB gold test has been requested. We will continue levofloxacin for now to cover for bacterial/atypicals. Recheck CXR; if no significant findings, highly unlikely that he has active pulmonary TB. HIV - it is noted that he had good response on Truvada and boosted darunavir. However, he has not been taking his medications for the past couple of weeks. CD4 and HIV viral load mercado s been requested, taking into account that CD4 count may be lowered by acute illness Neurosyphilis - patient states that he has been adherent with the outlined penicillin thera py by Dr. Enriquez. PCN G 4 million units q 4 will be continued. We will monitor his symptom s of headache and blurred vision. He may eventually need to have a repeat LP, to evaluate f or efficacy of therapy. He also is supposed to follow up with Dr. Grace in ophthalmology Case had been discussed with Dr. Ortiz Code Status: Full Code KATHLEEN TIPTON MD 10/23/2014 Pan Hammond MD - 10/22/2014 5:44 PM PST Progress Notes by Pan Ortiz MD at 10/22/141743 Author: Pan Ortiz MD Service: Hospitalist Author Type: Physician Filed: 10/22/141757 Date of Service: 10/22/141743 Status: Signed Police Communications Dispatcher: Pan Ortiz MD (Physician) [facility] Service: Hospitalist Progress Note Hospital Day: LOS: 0 days Post-Op Day: * No surgery found * SUBJECTIVE Patient Summary: per H and P: The patient is a 49 y.o. male with significant past me dical history of HIV, supposed to be on Truvada and boosted darunavir, on 09/27 CD4 356, CD4 % 13.2; HIV viral load 244, on IV penicillin G for neurosyphilis starting 10/13, COPD, alfredito tly denies smoking. Patient states that he has not been able to take his antiretroviral medi cations for about two weeks because he has difficulty finding them. He has been having blurr ed vision, left eye more problematic compared to right. He states he saw Dr. Grace about thre e weeks ago and is supposed to have a follow-up with him this week. He denies eye pain or oc ular drainage. He comes in today because of cough, which he states occasionally productive of whitish phle gm and shortness of breath. This symptoms started about 2-3 days ago. He states he has some wheezing. He has subjective fevers. He has generalized body achiness (patient does have hist ory of chronic pain). He states he has not been eating much, because he has difficulty cooki ng. He is not certain if he has lost any weight. He has some chills. He denies diaphoresis. He states he has pressure-like, generalized headaches. He feels tired. He denies neck pain a nd stiffness. He states that he is no longer with his partner, who is also HIV positive and nonadherent w ith this medications. That patient's partner is currently admitted and is being ruled out fo r tuberculosis. According to patient, he has never tested positive for tuberculosis. Patient also thinks that he has not received his pneumococcal vaccine and has not received influenz a vaccine yet. With regards to the penicillin therapy, he states that he has been taking IV penicillin as he has been instructed. Events Overnight: 10/22 pt complained of bilateral shoulder pain. Also coughing. Pt lives alone, but has a ro ommate, who is also very noncompliant with the medical community. Pt is well known to Dr. Kaity vazquez and infectious disease community. ROS: 12 point ROS reviewed and negative other than above. Scheduled Medications aspirin 81 mg Oral Daily with breakfast darunavir 800 mg Oral Daily emtricitabine-tenofovir 1 tablet Oral Daily etodolac 500 mg Oral Daily fluticasone 1 puff Inhalation BID heparin (porcine) 5000 unit/0.5mL 5,000 Units Subcutaneous Q8H ipratropium-albuterol 3 mL Nebulization Q6H levofloxacin 750 mg Intravenous Q24H nicotine 1 patch Transdermal Daily [START ON 10/23/2014] omeprazole 20 mg Oral QAM AC penicillin G potassium 4 Million Units Intravenous Q4H ritonavir 100 mg Oral Daily Continuous Infusions sodium chloride (IV) 75 mL/hr at 10/22/14 1211 PRN Medications acetaminophen, acetaminophen, albuterol, benzonatate, HYDROcodone-acetaminophen, LORazepam, nitroGLYCERIN, ondansetron, ondansetron, polyethylene glycol, traMADol OBJECTIVE Vital Signs: BP 137/73 | Pulse 102 | Temp(Src) 98.4 F (36.9 C) (Oral) | Resp 18 | Ht 1.753 m (5' 9") | SpO2 96% Physical Exam: General Appearance: No apparent distress. Conversive and appropriate to place and person. HEENT: Normocephalic, atraumatic, pupils EOMI, PERRLA. Nose: no septal deviation or dischar ge. Ears: normal size, location, and contour. Throat dry and without exudates. NECK: is supple, full ROM, nontender. LUNGS: + coughing during my visit. Non productive. clear to auscultation bilaterally with no wheezing, No rales or rhonchi audible. HEART: S1S2, Regular rate and rhythm without murmurs, gallops or rubs. ABDOMEN: Bowel sound is normoactive, abdomen is soft, non-tender non-distended ,no mass pal pable. EXTREMITIES:No lower extermity edema, No clubbing or cyanosis bilaterally. NEURO: Cranial Nerves 2-12 appears intact, Gait not tested, Muscle strength good bilaterall y, Sensation grossly intact. PSYCH: Alert, awake and Oriented x3. SKIN: No bruises, rashes, lesions, or ulcers. right nipple piercing. DATA Recent Labs Lab 10/22/14 0320 10/17/14 1200 WBC 6.5 5.1 RBC 5.06 4.65 HCT 40.3 37.2* MCV 79.6* 80.0 MCH 26.1* 26.1* MCHC 32.8 32.7 RDW 47.7 47.3 PLT 225 207 MPV 8.4 8.6 DIFFTYPE AUTOMATED MANUAL Recent Labs Lab 10/22/14 0320 10/17/14 1200 K 3.8 4.3 CL 104 99 CO2 24 31 ANIONGAP 13 9 GLUF 132* 98 BUN 17 19 CREATININE 0.82 0.70 BCR 20 27 CA 8.3* 9.0 PROT 8.4* 7.9 ALB 3.3* 3.9 GLOB 5.1* 4.0 BILITOT 0.2 0.3 ALP 104 108 AST 16 14 ALT 16 11 EGFR >60 >60 BMP: Recent Labs Lab 10/22/14 0320 10/17/14 1200 NA 137 135 K 3.8 4.3 CL 104 99 CO2 24 31 ANIONGAP 13 9 GLUF 132* 98 BUN 17 19 CREATININE 0.82 0.70 BCR 20 27 CA 8.3* 9.0 EGFR >60 >60 No results found for this basename: MG, in the last 168 hours Recent Labs Lab 10/22/14 0320 APTT 26 INR 1.0 Recent Labs Lab 10/22/14 1235 10/22/14 0320 CKTOTAL 38* 42* TROPONINI <0.020 -- CKMBINDEX UNABLE TO CALCULATE UNABLE TO CALCULATE Xr Chest Ap Portable 10/22/2014 SLAVA ANDERSON XR CHEST 1 VIEW 10/22/2014 4:59 AM HISTORY: 49 years. Male. C ough, shortness of breath rule out pneumonia TECHNIQUE: XR CHEST 1 VIEW. Frontal view of e chest dual-energy technique. Total of 3 images obtained. COMPARISON: 06/28/2014 FINDING S: Cardiac size is normal. Normal pulmonary vascular pattern. Lungs are expanded without pne umothorax or effusion. No segmental infiltrate, pulmonary nodule or mass, hilar or mediastin al adenopathy. There is now evidence of a sclerotic area in the mid portion of the right cla vicle possibly representing residual of prior,/fracture correlate with clinical history. Alt yohana there is a history of malignancy a bony metastatic disease can't be excluded. Degenera tive changes of the acromioclavicular joints again noted. And moderate thoracic spondylosis. 10/22/2014 1. No radiographic evidence of acute pulmonary disease. 2. Now seen is a scl erotic lesion in the midportion of the right clavicle see above discussion correlate clinica lly 3. Moderate thoracic spondylosis. Electronically signed by Liban Guerra MD on 1 12/23/2013 6:23 AM PROBLEM LIST ASSESSMENT & PLAN Principal Problem: Acute bronchitis Active Problems: HIV (human immunodeficiency virus infection) Depression with anxiety Chronic back pain COPD exacerbation Current smoker Neurosyphilis in male Chest pain Principal Problem: Acute bronchitis 10/22 pt still has cough. Will rx tessalon perles. Bronchodilations. Continue with antibio tics per dr. Tipton. Spoke with her briefly today. Active Problems: R/o TB; pt is on reverse air isolation due to risk of having TB. HIV (human immunodeficiency virus infection) Cont with retroviral if pt willing to maintain. He claimed he lost the meds 2 wks ago, and didn't care to refill them. Pt is very noncompliant with medical community. Depression with anxiety Chronic back pain; on chronic pain meds. COPD exacerbation; 10/22 stable. No respiratory distress noted. Current smoker 10/22 recommend cessation. Neurosyphilis in male; affecting the left eye. With diminished vision of this eye. Hospital records reviewed. Labs and radiologic studies and reports reviewed. Discussed find ings with participating physicians. Old records reviewed on EMR. Condition guarded and high risk for cardiopulmonary decompensation due to underlying condit ions Disposition: inpatient Code Status: Full Code Pan Ortiz MD 10/22/2014 onversio n Transaction, Provider Unknown - 10/22/2014 11:46 AM PSTFormatting of this note might be di fferent from the original. Progress Notes by Brianna Davey RPH at 10/22/14 7252 Author: Brianna Davey RPH Service: (none) Author Type: Pharmacist Filed: 10/22/14 1145 Date of Service: 10/22/141145 Status: Signed Police Communications Dispatcher: Brianna Davey RPH (Pharmacist) Clinical Pharmacy Note: Renal Monitoring Slava Anderson 49 y.o. male Ht Readings from Last 1 Encounters: 10/11/14 1.727 m (5' 8") Wt Readings from Last 1 Encounters: 10/19/14 90.719 kg (200 lb) CREATININE Date Value Range Status 10/22/2014 0.82 0.70 - 1.30 mg/dL Final Testing performed at [facility];[address] [place] [address];[place] [address] The patient's GFR is > 60 ml/min Pharmacy dosing for renal function per Dr. Morelos. Currently, there are no medications needing to be adjusted. Pharmacy will continue to monit or for changes in medication orders and in renal function and adjust accordingly. Brianna Davey R.Ph 10/22/2014 11:45 AM onver brett Al[place], Provider Unknown - 10/22/2014 10:55 AM PST Progress Notes by Brianna Davey RPH at 10/22/14 105 Author: Brianna Davey RPH Service: (none) Author Type: Pharmacist Filed: 10/22/14 1055 Date of Service: 10/22/141054 Status: Signed Police Communications Dispatcher: Brianna Davey RPH (Pharmacist) Patient has PCN infusion ([facility]) that will run out at aprox [address] Tipton start our PCN IVPB at 1630 today. BIRANNA DAVEY 10/22/2014 10:55 AM >> BRIANNA DAVEY 10/22/2014 07:21 Dr Tipton called Pharmacy regarding PCN 1MU IVPB order (from hosp) that is signed & held. ID wants to change order to PCN 4MU IV q4h. ED notified of the change. BRIANNA DAVEY 10/22/2014 7:21 AM docume nted in this encounter H&P Notes Anel Morelos - 10/22/2014 6:32 AM PSTFormatting of this note might be different from e original. H&P by Anel Morelos MD at 10/22/14 0632 Author: Anel Morelos MD Service: Hospitalist Author Type: Physician Filed: 10/23/14 0005 Date of Service: 10/22/1432 Status: Signed Police Communications Dispatcher: Anel Morelos MD (Physician) [facility] Service: Hospitalist Admission History & Physical Date of Admission: 10/22/2014 Requesting Physician: , Emergency Department Reason for Admission: Chest pain , cough r/o TB History Obtained From: patient, chart review, Quality of history: good CHIEF COMPLAINT: Chief Complaint Chief Complaint Patient presents with Chest Pain Shortness of Breath possibe TB HISTORY OF PRESENT ILLNESS The patient is a 49 y.o. male with significant past medical history of HIV noncompliant wi th HAART treatment, chronic smoker, COPD not on home oxygen, recent diagnosis of neurosyphil is on IV penicillin with a PICC line in the left upper extremity and follows with Dr. Enriquez . Patient has bilateral blurred vision for the past 4 months, felt to be secondary to neuros yphilis; was referred to Dr. Grace. 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 The patie nt's partner is currently hospitalized and being ruled out for tuberculosis. Patient presented to the ED for evaluation of cough and chest pain. Patient has not yet rec eived his flu shot. Denied any recent URI symptoms. He reported productive cough for the pas t 3 days. Unable to tell the color of the sputum but denies any hemoptysis. He has shortness of breath, wheezing, and pleuritic chest pain with cough, maximum intensity 8/10. No fevers or chills. Denies any history of [place], congestive heart failure. Denies any radiation of the chest pain to the jaw, arm, interscapular area. Not associated with nausea, vomiting, dizzin ess, lightheadedness, or syncope. Denies any dysphagia or aspiration. No recent travel or ho spitalization. No new pets. Has history of GERD but this pain is different. Known history of asthma/COPD. Was intubated as a child. Reports 10-pound weight loss in the past 2 months an d poor appetite. Workup in the emergency room showed normal CBC with an MCV of 79, CMP normal except random blood sugar of 132, and normal renal function. Total protein elevated at 8.4, globulin 5.1, and albumin of 3.3, consistent with HIV status. GFR is greater than 60. C-reactive protein i s normal. Lactic acid in the normal range. Cardiac enzymes negative. EKG did not show any ac [place] injury or ischemia. Chest x-ray official report is pending. No acute infiltrates, consol idation, cavitary lesions noted per my read. Dr. Adam consulted Dr. Tipton, infectious disease. Per her recommendations, influenza swab and nasopharyngeal culture with DFA ordered. Patient will be placed in droplet isolatio n until tuberculosis is ruled out. Hospitalist service consulted to admit. [facility] administ ered in the ED per recommendations of infectious disease. REVIEW OF SYSTEMS Review of Systems CONSTITUTIONAL: Weight loss, poor appetite present. No fever or chills. HEENT: Has mild headache. . Denies any thrush. Neck: No neck pain or neck stiffness. RESPIRATORY: History of COPD. Current smoker. For the past week, due to respiratory symptom s unable to smoke. History of asthma present. CARDIOVASCULAR: No prior history of [place], congestive heart failure, irregular heart rhythm, o r syncope. GASTROINTESTINAL: Denies any abdominal pain but has some soreness from coughing. No constip ation or diarrhea. No nausea or vomiting. No GI bleeding. GENITOURINARY: No dysuria, polyuria, hematuria, or flank pain. DERMATOLOGIC: No rash or decubitus ulcers. PSYCHIATRIC: Anxiety and depression controlled with medications. No suicidal thoughts. MUSCULOSKELETAL: Arthritis and chronic pain. Left arm PICC line present; no swelling, redne ss noted. ENDOCRINOLOGIC: Not a known diabetic. NEUROLOGY : Denies TIAs strokes seizures. Has neurosyphilis with bilateral blurred vision. Past Medical History Diagnosis Date HIV (human immunodeficiency virus infection) Muscle spasms of neck Hyperlipidemia Cholelithiasis COPD (chronic obstructive pulmonary disease) Chronic mastoiditis Multiple joint pain 05/14/2013 Other chronic pain Neurosyphilis in male Blurred vision, bilateral Past Surgical History Procedure Laterality Date Tonsillectomy Fistula repair Tympanoplasty Immunizations: Influenza: no No Known Allergies Prior to Admission medications Medication Sig Start [...] (two) times da laverne. Yes Historical Provider penicillin G potassium [id number] UNIT/ML Inject 200 mLs into the vein every 4 (four) hours. 10/13/1410/27/14 Yes Zita Enriquez MD ritonavir (NORVIR) 100 MG TABS tablet Take 100 mg by mouth daily. 03/16/14 03/16/15 Yes Zita Enriquez MD UNKNOWN TO PATIENT Indications: Eye drops from Opthalmologist Yes Historical Provider HYDROcodone-acetaminophen (NORCO) 5-325 MG per tablet Take 1 tablet by mouth every 6 (six) hours as needed for Pain. 07/01/14 07/11/14 WANDA Jenkins LORazepam (ATIVAN) 1 MG tablet Take 1 mg by mouth every 6 (six) hours as needed for Anxiety . Historical Provider Family History Problem Relation Age of Onset [...] EXAM Vital Signs: BP 132/93 | Pulse 119 | Temp(Src) 100.1 F (37.8 C) (Oral) | Resp 20 | SpO2 95% Physical Exam GENERAL: Patient is well built, well nourished, nontoxic appearing, tachycardic. Temperatur e maximum of 100.1 in the emergency room noted. HEENT: Mild congestion of the right eye. Bilateral blurred vision, left more than right per patient. No zoster lesions noted. No central cyanosis. Moist oral mucosa. No thrush. NECK: Supple. No JVD. LUNGS: Good air entry bilaterally. No wheezing or rales noted at this time. Respirations no t labored. HEART: Regular, tachycardic. No murmur. No gallop. CHEST: No chest wall tenderness to palpation. ABDOMEN: Diffuse mild ttp,. Soft. Not distended. No guarding. No rigidity. Bowel sounds pre sent normally. EXTREMITIES: Left upper extremity PICC line present, functioning well; no signs of inflamma tion or infection. Bilateral lower extremities: No signs of DVT, cellulitis, or ankle edema. BACK: Normal inspection. No tenderness to the spine. No CVA tenderness. SKIN: No rash. PSYCHIATRIC: Normal mood and affect. No acute delirium. NEUROLOGY : grossly non focal. DATA Results for orders placed during the hospital encounter of 10/22/14 (from the past 24 hour( s)) [facility] CARD PANEL W/O TRP (ED ONLY) Collection Time 10/22/14 3:20 AM Result Value Range WBC 6.5 3.8 - 11.0 K/uL RBC 5.06 4.20 - 5.70 M/uL HGB 13.2 13.2 - 17.0 g/dL HCT 40.3 39.0 - 50.0 % MCV 79.6 (*) 80.0 - 100.0 fl MCH 26.1 (*) 27.0 - 34.0 pg MCHC 32.8 32.0 - 35.5 g/dL RDW SD 47.7 37 - 53 fl PLT 225 150 - 400 K/uL MPV 8.4 DIFF TYPE AUTOMATED NEUTROPHILS 54.1 LYMPHOCYTES 35.0 MONOCYTES 8.0 EOSINOPHILS 2.2 BASOPHILS 0.7 NEUTROPHILS ABS 3.5 1.9 - 7.4 K/uL LYMPHOCYTES ABS 2.3 1.0 - 3.9 K/uL MONOCYTES ABS 0.5 0 - 0.8 K/uL EOSINOPHILS ABS 0.1 0 - 0.5 K/uL BASOPHILS ABS 0.0 0 - 0.1 K/uL Diff Comment SLIDE SCANNED, AGREES WITH AUTOMATED RESULTS. SODIUM 137 135 - 143 mmol/L POTASSIUM 3.8 3.5 - 4.9 mmol/L CHLORIDE 104 99 - 109 mmol/L CO2 24 23 - 32 mmol/L ANION GAP AGAP 13 5 - 20 mmol/L GLUCOSE 132 (*) 65 - 99 mg/dL BUN 17 8 - 25 mg/dL CREATININE 0.82 0.70 - 1.30 mg/dL BUN/CREAT 20 CALCIUM 8.3 (*) 8.5 - 10.2 mg/dL TOTAL PROTEIN 8.4 (*) 6.3 - 8.2 g/dL Albumin 3.3 (*) 3.6 - 5.0 g/dL GLOBULIN 5.1 (*) 1.3 - 4.9 g/dL A/G 0.7 (*) 1.0 - 2.4 TBIL 0.2 0.1 - 1.5 mg/dL ALK PHOS 104 35 - 115 U/L AST 16 10 - 45 U/L ALT 16 10 - 65 U/L EGFR >60 >60 mL/min/1.73m2 CPK 42 (*) 55 - 400 U/L INR 1.0 APTT 26 23 - 32 seconds MMB <0.5 (*) 0.5 - 3.6 ng/mL CK-MB Index UNABLE TO CALCULATE SEDIMENTATION RATE, AUTOMATED Collection Time 10/22/14 3:20 AM Result Value Range ESR 29 (*) 0 - 15 mm/Hr C-REACTIVE PROTEIN Collection Time 10/22/14 3:20 AM Result Value Range CRP 0.5 (*) <0.5 mg/dL LACTIC ACID, PLASMA Collection Time 10/22/14 3:20 AM Result Value Range LACTIC ACID 1.7 0.4 - 2.0 mmol/L POC CARDIAC TROPONIN Collection Time 10/22/14 4:02 AM Result Value Range POC CARDIAC TROPONIN 0.00 0.00 - 0.10 ng/mL EKG from 0330 Normal sinus tachycardia at 109 Normal [place] and EFRAIN Normal QRS and [place] Normal QT and QTc Normal ST/T without acute ischemic changes EKG dated 06/29/2014 is unchanged in comparison to todays EKG with exception of rate being 130. Interpreted by Matheus Adam DO. CXR:NO ACUTE INFILTRATES PER MY READ. PROBLEM LIST Principal Problem: Acute bronchitis Active Problems: HIV (human immunodeficiency virus infection) Depression with anxiety Chronic back pain COPD exacerbation Current smoker Neurosyphilis in male Chest pain ASSESSMENT & PLAN SIRS with tachycardia and low grade fever.: A 49-year-old male with known history of HIV AI DS, noncompliance, recent diagnosis of neurosyphilis on IV penicillin. The patient presented to the ED for productive cough, shortness of breath, wheezing and chest pain, most likely a cute bronchitis with SIRS; however, since he is immune compromised, possible chest x-ray not yet showing pneumonia. Will admitted to acute care as I anticipate more than 2 midnight sta y for IV antibiotics treatment. Infectious disease, Dr. Tipton, consulted. Per her recomme ndations, ordered Levaquin. Influenza screen ordered and pending. The patient's partner is being ruled out for tuberculosis, although less likely pulmonary TB in this patient. It is i mportant to rule out, therefore will admit to droplet isolation. QuantiFERON Gold and [employer] sm ear and culture for 3 days ordered. Pleuritic chest pain most likely related to acute bronchitis; however, has risk factors for coronary disease, therefore need to rule out ACS with serial cardiac enzymes. D-dimer order ed to rule out pulmonary embolism. Will admit to telemetry and rule out ACS with serial card iac enzymes. Mild COPD exacerbation. DuoNeb and Xopenex. Will hold off on steroids at this time as no au dible wheeze noted. HIV and AIDS, resume home medications. Resume heart therapy. History of depression and anxiety. Continue lorazepam. Chronic low back pain. Resume [place]. Current smoker. Counseled on smoking cessation and nicotine replacement with nicotine patch ordered. Neurosyphilis. Recent diagnosis. Continue penicillin IV as recommended by infectious danny harris. Addendum: 7:09am Consulted . Disposition: Acute care Code Status: Full code Primary Care Physician: Zita MORELOS MD 10/22/2014 documented in this encou nter Consult Notes Kathleen Tipton S - 10/22/2014 7:00 AM PSTFormatting of this note might be different fr om the original. Consult* by Kathleen Tipton MD at 10/22/14 0700 Author: Kathleen Tipton MD Service: Infectious Disease Author Type: Physician Filed: 10/22/14 2508 Date of Service: 10/22/14 07 Status: Signed Police Communications Dispatcher: Kathleen Tipton MD (Physician) [facility] Service: Infectious Disease Initial Consult Note Date of Admission: 10/22/2014 Reason for Consultation: Neurosyphilis, HIV with history of medication non-adherence, bron chitis symptoms with partner currently being ruled out for TB Requesting Physician: Dr. Matheus Adam, Emergency Department History Obtained From: patient, chart review CHIEF COMPLAINT: Cough and shortness of breath HISTORY OF PRESENT ILLNESS The patient is a 49 y.o. male with significant past medical history of HIV, supposed to be on Truvada and boosted darunavir, on 09/27 CD4 356, CD4% 13.2; HIV viral load 244, on IV pe nicillin G for neurosyphilis starting 10/13, COPD, currently denies smoking. Patient states t hat he has not been able to take his antiretroviral medications for about two weeks because he has difficulty finding them. He has been having blurred vision, left eye more problemati c compared to right. He states he saw Dr. Grace about three weeks ago and is supposed to hav e a follow-up with him this week. He denies eye pain or ocular drainage. He comes in today because of cough, which he states occasionally productive of whitish phle gm and shortness of breath. This symptoms started about 2-3 days ago. He states he has carl e wheezing. He has subjective fevers. He has generalized body achiness (patient does have history of chronic pain). He states he has not been eating much, because he has difficulty cooking. He is not certain if he has lost any weight. He has some chills. He denies diaph oresis. He states he has pressure-like, generalized headaches. He feels tired. He denies neck pain and stiffness. He states that he is no longer with his partner, who is also HIV positive and nonadherent w ith this medications. That patient's partner is currently admitted and is being ruled out f or tuberculosis. According to patient, he has never tested positive for tuberculosis. Joy ent also thinks that he has not received his pneumococcal vaccine and has not received influ zeb vaccine yet. With regards to the penicillin therapy, he states that he has been taking IV penicillin as he has been instructed. When he first presented today emergency room, he was initially afebrile but tachycardic. O xygen saturation was 98% in room air. He now has a low-grade temperature. REVIEW OF SYSTEMS Review of Systems Gen.: Subjective fever. Low-grade fever in emergency room. Reports having some chills but no diaphoresis. See above HEENT: Positive for headache, blurred vision. Negative ocular pain. Has mild rhinorrhea. Denies sinus pains. Denies difficulty hearing, otalgia or tinnitus. Denies oral pain, sor e throat, neck pain or stiffness Cardiovascular: Denies chest pains, palpitations or lower extremity edema Respiratory: Positive for cough with whitish phlegm, no hemoptysis. Positive for dyspnea. Denies pleurisy. Has occasional wheezing, states that breathing treatment has slightly hel ped GI: Denies abdominal pain, nausea, vomiting, diarrhea, constipation or melena : Denies dysuria, hematuria, hypogastric discomfort, penile discharge, genital ulcers or blisters Musculoskeletal: States he has diffuse body achiness on and off; no swollen joints Neurologic: Denies syncopal episodes, dizziness, focal weakness or numbness. Denies falls Psychiatric: Denies suicidal ideations. With regards to social stressors, he admits being stressed about his partner's medical condition. He states that "Skyler" is now an ex-partner, they have difficulty getting along, but he has been taking care of him the past month and Ti m has been in his apartment into past month Cutaneous: No pruritus or new skin rash Endocrinologic: No history of diabetes or thyroid disorder Hematologic: No lymphadenopathy, bleeding episodes or easy bruisability Infectious: See above regarding HIV status Past Medical History Diagnosis Date HIV (human immunodeficiency virus infection) Muscle spasms of neck Hyperlipidemia Cholelithiasis COPD (chronic obstructive pulmonary disease) Chronic mastoiditis Multiple joint pain 05/14/2013 Other chronic pain Neurosyphilis in male Blurred vision, bilateral Past Surgical History Procedure Laterality Date Tonsillectomy Fistula repair Tympanoplasty No Known Allergies (Not in a hospital admission) Scheduled Medications sodium chloride (PF) 10 mL Intravenous Q8H Continuous Infusions levofloxacin PRN Medications Family History Problem Relation Age of Onset [...] file Social History Narrative Local resident , same sex partner, full code, no falls. PHYSICAL EXAM Vital Signs: BP 132/93 | Pulse 119 | Temp(Src) 100.1 F (37.8 C) (Oral) | Resp 20 | SpO2 95% Temp: [99 F (37.2 C)-100.1 F (37.8 C)] 100.1 F (37.8 C) (10/22 558) BP: (117-132)/(74-93) 132/93 mmHg (10/22 558) Heart Rate: [110-119] 119 (10/22 558) Resp: [20] 20 (10/22 558) SpO2: [95 %-99 %] 95 % (10/22 558) Physical Exam Vital signs have been reviewed Gen.: Appears tired and sleepy, easily arousable. Not in acute distress HEENT: Normocephalic. Anicteric sclerae. Pupils are reactive to light. No conjunctival l esions noted. EOM intact. No sinus tenderness. No nasal mucosal lesions. Hearing is inta ct. Moist oral mucosa, no oral thrush or ulcers. No pharyngeal lesions. Supple neck, no c ervical lymphadenopathy or tenderness. Lungs: Symmetric expansion. No rales, wheezes or rhonchi noted Cardiovascular: Tachycardic, regular, no rubs or murmurs noted Abdomen: No distention, positive bowel sounds, soft, no tenderness, no palpable masses Cutaneous: No significant rash noted. PICC site is unremarkable Neurologic: As noted above, the patient is sleepy but arousable. He is not completely coop erative for the clinical encounter, stating he feels tired. Oriented 3. No focal weaknes s or sensory deficit noted. Gait was not tested. Psychiatric: No agitation DATA CBC: Lab Results Component Value Date WBC 6.5 10/22/2014 RBC 5.06 10/22/2014 HGB 13.2 10/22/2014 HCT 40.3 10/22/2014 MCV 79.6* 10/22/2014 MCH 26.1* 10/22/2014 MCHC 32.8 10/22/2014 RDW 47.7 10/22/2014 PLT 225 10/22/2014 MPV 8.4 10/22/2014 DIFFTYPE AUTOMATED 10/22/2014 WBC: Lab Results Component Value Date WBC 6.5 10/22/2014 NEUTABSMAN 1.5* 10/17/2014 NEUTROABS 3.5 10/22/2014 NEUTROMAN 30 10/17/2014 LYMPHOABS 3.0 10/17/2014 LYMPHOMAN 59 10/17/2014 LYMPHSABS 2.3 10/22/2014 LYMPHOPCT 35.0 10/22/2014 MONOABSMAN 0.4 10/17/2014 MONOMAN 8 10/17/2014 MONOPCT 8.0 10/22/2014 EOSINOABS 0.2 10/17/2014 EOSINOMAN 3 10/17/2014 EOSABS 0.1 10/22/2014 EOSPCT 2.2 10/22/2014 BASOSABS 0.0 10/22/2014 BASOPCT 0.7 10/22/2014 BANDSPCT 1 09/27/2014 ATYLMPCT 1 08/21/2013 ATYLYMABS 0.1* 08/21/2013 COMDIFF SLIDE SCANNED, AGREES WITH AUTOMATED RESULTS. 10/22/2014 CMP: Lab Results Component Value Date NA 137 10/22/2014 K 3.8 10/22/2014 CL 104 10/22/2014 CO2 24 10/22/2014 ANIONGAP 13 10/22/2014 GLUF 132* 10/22/2014 BUN 17 10/22/2014 CREATININE 0.82 10/22/2014 BCR 20 10/22/2014 CA 8.3* 10/22/2014 PROT 8.4* 10/22/2014 ALB 3.3* 10/22/2014 GLOB 5.1* 10/22/2014 BILITOT 0.2 10/22/2014 ALP 104 10/22/2014 AST 16 10/22/2014 ALT 16 10/22/2014 EGFR >60 10/22/2014 Chest x-ray film reviewed. Impression 1. No radiographic evidence of acute pulmonary disease. 2. Now seen is a sclerotic lesion in the midportion of the right clavicle see above discus brett correlate clinically 3. Moderate thoracic spondylosis. Chest AP portable [[id number] PROBLEM LIST Principal Problem: Acute bronchitis Active Problems: HIV (human immunodeficiency virus infection) Depression with anxiety Chronic back pain COPD exacerbation Current smoker Neurosyphilis in male Chest pain ASSESSMENT & PLAN Cough, shortness of breath - possibly secondary to bronchitis. Patient has underlying hist ory of COPD. Suspect that this is most likely viral in etiology and less likely bacterial. Rapid influenza screen has been requested. Nasopharyngeal viral DFA has also been requeste d. Oxygen saturation has been stable. There is concern expressed for the possibility of tuberculosis as his partner is being rule d out for TB. It does not appear that the partner has been confirmed for pulmonary tubercul osis. Due to the patient's immunocompromise, however, particularly with a history of noncom pliance, QuantiFERON-TB gold test has been requested. He is also been placed on both drople t and airborne precautions. Sputum to be checked for bacterial cultures; AFB cultures 3 h ave also been requested We will continue levofloxacin for now to cover for bacterial/atypicals HIV - it is noted that he had good response on Truvada and boosted darunavir. However, he has not been taking his medications for the past couple of weeks. CD4 and HIV viral load mercado s been requested, taking into account that CD4 count may be lowered by acute illness Neurosyphilis - patient states that he has been adherent with the outlined penicillin thera py by Dr. Enriquez. PCN G 4 million units q 4 will be continued. We will monitor his symptom s of headache and blurred vision. He may eventually need to have a repeat LP, to evaluate f or efficacy of therapy. He also is supposed to follow up with Dr. Grace in ophthalmology Case had been discussed with Dr. Adam, Dr. Morelos and pharmacy Code Status: Prior Primary Care Physician: Zita Enriquez Thank you for allowing me to participate in the care of this patient. KATHLEEN TIPTON MD 10/22/2014 documented in this encounter ED Notes Conversion Transaction, Provider Unknown - 10/22/2014 5:09 AM PSTFormatting of this note m ight be different from the original. ED Notes by Deedee Loera RN at 10/22/14508 Author: Deedee Loera RN Service: (none) Author Type: Registered Nurse Filed: 10/22/14508 Date of Service: 10/22/14508 Status: Signed Police Communications Dispatcher: Deedee Loera RN (Registered Nurse) RT at Deedee Loera RN 10/22/14508 onver brett Transaction, Provider Unknown - 10/22/2014 4:43 AM PST ED Notes by Deedee Loera RN at 10/22/14442 Author: Deedee Loera RN Service: (none) Author Type: Registered Nurse Filed: 10/22/14442 Date of Service: 10/22/14442 Status: Signed Police Communications Dispatcher: Deedee Loera RN (Registered Nurse) X-ray at Deedee Loera RN 10/22/14442 onver brett Transaction, Provider Unknown - 10/22/2014 3:55 AM PST ED Notes by Deedee Loera RN at 10/22/14 035 Author: Deedee Loera RN Service: (none) Author Type: Registered Nurse Filed: 10/22/14 0356 Date of Service: 10/22/14354 Status: Signed Police Communications Dispatcher: Deedee Loera RN (Registered Nurse) Patient comes in to the ED via EMS with new onset of productive cough symptoms. Patient is currently being treated for HIV and Syphilis. Patient's partner is also in this hospital gold ng tested for TB and being treated for syphilis and HIV. Deedee Loera RN 10/22/14 0356 Matheus Jameson MD - 10/22/2014 3:31 AM PST ED Provider Notes by Matheus Adam DO at 10/22/14 033 Author: Matheus Adam DO Service: (none) Author Type: Physician Filed: 10/22/14 7137 Date of Service: 10/22/14330 Status: Signed Police Communications Dispatcher: Matheus Adam DO (Physician) [facility] Department of Emergency Medicine 10/22/2014 History of Present Illness Patient Identification Slava Anderson is a 49 y.o. male. Patient information was obtained from patient. History/Exam limitations: none. Patient presented to the Emergency Department by: Nehemiah Alfonso 1821 Chief Complaint Chief Complaint Patient presents with Chest Pain Shortness of Breath possibe TB 4:03 AM Pt presents to the ED with productive cough. Onset of symptoms was 3 days ago, wit h a worsening course since that time. Severity is described as moderate. The pt also compla ins of chest pain secondary to cough and [id number]. The pt reports his partner has a confirmed diagnosis of TB. The pt states he is not on TB medications, and is not currentl y taking his HIV medications. Past Medical History Diagnosis Date HIV (human [...] for shortness of breath 09/17/13 WANDA Cary Darunavir Ethanolate 800 MG TABS Take 800 mg by mouth daily. 03/16/14 03/16/15 Zita Enriquez MD emtricitabine-tenofovir (TRUVADA) 200-300 MG per tablet Take 1 tablet by mouth daily. 4 03/16/15 Zita Enriquez MD etodolac (LODINE XL) 500 MG 24 hr tablet Take 1 tablet by mouth daily. 07/17/14 07/17/15 Manoj Garcia, fluticasone (FLOVENT HFA) 220 MCG/ACT inhaler Inhale 1 puff into the lungs 2 (two) times da laverne. Historical Provider HYDROcodone-acetaminophen (NORCO) 5-325 MG per tablet Take 1 tablet by mouth every 6 (six) hours as needed for Pain. 07/01/14 07/11/14 WANDA Jenkins penicillin G potassium [id number] UNIT/ML Inject 200 mLs into the vein every 4 (four) hours. 10/13/1410/27/14 Zita Enriquez MD ritonavir (NORVIR) 100 MG TABS tablet Take 100 mg by mouth daily. 03/16/14 03/16/15 Zita vazquez MD No Known Allergies History Social History [...] file Social History Narrative Local resident , same sex partner, full code, no falls. Family History Problem Relation Age of Onset Other (see comments) Mother adopted Other (see comments) Father adopted Review of Systems Constitutional: Negative for: fever or chills Cardiovascular: Negative for: chest pain Respiratory: Positive for: productive cough, shortness of breath, and chest pain Gastrointestinal: Negative for: vomiting or abdominal pain Genitourinary: Negative for: dysuria, flank pain, or hematuria Musculoskeletal: Negative for: myalgias or arthralgias Skin: Negative for: rash or lesion Neuro and psych: Negative for: fainting or dizziness All other systems were reviewed and are subjectively reported as negative. Physical Exam BP 117/74 | Pulse 110 | Resp 20 | SpO2 98% Vitals: Tachycardic, otherwise WNL Pulse Oximetry Interpretation: Normal General: Alert, no active distress and not requiring any emergent interventions Eyes: Normal inspection, pupils equal and round, non-icteric sclera ENT: Ears normal Nose normal without discharge or drainage Pharynx normal with no exudates or discharge Neck: Normal inspection with no lymphadenopathy Supple Full ROM No carotid bruit with midline trachea Cardiovascular: Normal rate and rhythm, no extra sounds No murmurs rubs or gallops Focal PMI Respiratory: No respiratory distress or wheezing Normal excursion No retractions Coarse breath sounds Rhonchi Abdomen: Soft, non-tender, non-distended Normal active bowel sounds Back: Normal inspection Without tenderness or deformity Skin: Color normal Warm and dry Extremities: ZAMORA with equal pulses in the upper and lower extremities bilaterally Neuro: No gross motor/sensory deficit GCS 15 No cerebellar deficits Alert and oriented to person, place, time and situation. Medical Decision Making and Emergency Department Course ED Department Course 4:03 AM Pt presents to the ED with productive cough, chest pain secondary to cough, and solomon rtness of breath. After introducing myself to the pt, I have performed a careful history and physical examination. I have formulated the differential diagnosis that needs to be address ed during this ER visit, briefly discussed this differential with the pt, and then discussed with them the plan of care. I have also addressed the risks and benefits of all diagnostic and treatment modalities planned for this ED visit. I will order cardiac panel, blood cultur e, sedimentation rate, CRP, lactic acid, and chest XR. Admission Upon review of the patient s history, physical and the results of studies I believe that the patient warrants admission to the hospital for further evaluation and treatment. I will call and arrange for admission at this time. 5:45 AM Discussed case with Dr. Morelos, hospitalist, who agrees to see the pt in the ED and recommends consulting infectious disease. 6:04 AM Discussed case with Dr. Tipton, infectious disease, who does not recommend anti-T B treatment, start IV Levaquin, order influenza swab, keep droplet precautions, and agrees t o see the pt in the ED. Will notify Dr. Morelos, hospitalist. MDM: I considered viral etiology, TB, laryngotracheobronchitis, croup, bacterial etiology, bacterial tracheobronchitis, lung abscess, pertussis, mycoplasmal etiology, mycoplasmal bron chitis, chlamydial etiology and chlamydial bronchitis as a possible cause of cough in this p atient. This is a partial list of diagnoses considered. Filed Vitals: 10/22/14 0329 10/22/14 0415 10/22/14 0509 10/22/14 0519 BP: 117/74 117/80 Pulse: 110 110 111 Temp: 99 F (37.2 C) TempSrc: Oral Resp: 20 20 SpO2: 98% 99% 99% Filed Vitals: 10/22/14 1257 10/22/14 1621 10/22/14200010/22/142017 BP: 118/75 137/73 132/95 Pulse: 102 102 102 Temp: 97.5 F (36.4 C) 98.4 F (36.9 C) 98.1 F (36.7 C) TempSrc: Oral Oral Oral Resp: 20 Height: SpO2: 95% 96% 97% 97% Records Reviewed Old medical records for a variety of chief complaints which are unrelated to the evaluation in our emd today. Nursing notes reviewed for chief complaint, medications, clinical presentation and vital si gns Visit with Dr. Zita Enriquez On 10/20/2014 Visit Diagnoses and Associated Orders: Human immunodeficiency virus (HIV) disease Patient has not been on medications for 10 days Counseling with regard to need 400% compliance done. Patient has tried to get neighbor into the house to check for medications. He will get in touch with his adult protective caseworker to help with this. Neurosyphilis in male Patient on IV penicillin due to complete in about a week Has tolerated antibiotics so far without any shows Continue as scheduled Call if any concerns We discussed about risk for repeat infections if exposed to same source/unprotected sex. This treatment will not protect him against future exposures Compliance poor Patient is now been off his HIV medications. We discussed about compliance, patient has been noncompliant with medications, follow-up in the past also. Insisted that he should follow-up as soon as possible with Dr. Grace with regard to his visi on issues Addendum: Touched base with his cryogenics repairer Alla-according to cryogenics repairer patient has not returned any calls. Despite making arrangements to follow-up with Dr. Grace, patient has not done so and has not gotten in touch with case managers /credit and loan collections supervisor We will attempt to reach patient again and insist on importance of follow-up. Laboratory Evaluation Results Procedure Component Value Ref Range Date/Time Viral DFA reflex [[id number]] Collected: 10/22/14 1854 Order Status: Sent Updated: 10/22/14 1901 Specimen Information: Nasopharyngeal / Nasopharyngeal Culture Blood culture, set 2 [[id number]] Collected: 10/22/14 0436 Order Status: Sent Updated: 10/22/14 0752 Specimen Information: Blood / Blood Blood Culture Set 1 [[id number]] Collected: 10/22/14 0320 Order Status: Sent Updated: 10/22/14 0707 Specimen Information: Blood / Blood Rapid Influenza A and B [[id number]] Collected: 10/22/14 0635 Order Status: Completed Updated: 10/22/14 0706 Specimen Information: Nasopharyngeal / Nasopharyngeal Culture Specimen Description NASOPHARYNGEAL RESULT Result: Negative for Influenzae Type A and Type B antigen by ICA RESULT Result: Testing performed at [facility];[address] [place] [address];[place] [address] POC cardiac troponin [[id number]] Collected: 10/22/14 0402 Order Status: Completed Updated: 10/22/14 0637 POC CARDIAC TROPONIN 0.00 0.00 - 0.10 ng/mL Sedimentation Rate (ESR) [[id number]] (Abnormal) Collected: 10/22/14 0320 Order Status: Completed Updated: 10/22/14 0603 Specimen Information: Blood ESR 29 (H) 0 - 15 mm/Hr Cardiac Panel [[id number]] (Abnormal) Collected: 10/22/14 0320 Order Status: Completed Updated: 10/22/14 0524 WBC 6.5 3.8 - 11.0 K/uL RBC 5.06 4.20 - 5.70 M/uL HGB 13.2 13.2 - 17.0 g/dL HCT 40.3 39.0 - 50.0 % MCV 79.6 (L) 80.0 - 100.0 fl MCH 26.1 (L) 27.0 - 34.0 pg MCHC 32.8 32.0 - 35.5 g/dL RDW SD 47.7 37 - 53 fl PLT 225 150 - 400 K/uL MPV 8.4 fl DIFF TYPE AUTOMATED NEUTROPHILS 54.1 % LYMPHOCYTES 35.0 % MONOCYTES 8.0 % EOSINOPHILS 2.2 % BASOPHILS 0.7 % NEUTROPHILS ABS 3.5 1.9 - 7.4 K/uL LYMPHOCYTES ABS 2.3 1.0 - 3.9 K/uL MONOCYTES ABS 0.5 0 - 0.8 K/uL EOSINOPHILS ABS 0.1 0 - 0.5 K/uL BASOPHILS ABS 0.0 0 - 0.1 K/uL Diff Comment Result: SLIDE SCANNED, AGREES WITH AUTOMATED RESULTS. SODIUM 137 135 - 143 mmol/L POTASSIUM 3.8 3.5 - 4.9 mmol/L CHLORIDE 104 99 - 109 mmol/L CO2 24 23 - 32 mmol/L ANION GAP AGAP 13 5 - 20 mmol/L GLUCOSE 132 (H) 65 - 99 mg/dL BUN 17 8 - 25 mg/dL CREATININE 0.82 0.70 - 1.30 mg/dL BUN/CREAT 20 CALCIUM 8.3 (L) 8.5 - 10.2 mg/dL TOTAL PROTEIN 8.4 (H) 6.3 - 8.2 g/dL Albumin 3.3 (L) 3.6 - 5.0 g/dL GLOBULIN 5.1 (H) 1.3 - 4.9 g/dL A/G 0.7 (L) 1.0 - 2.4 TBIL 0.2 0.1 - 1.5 mg/dL ALK PHOS 104 35 - 115 U/L AST 16 10 - 45 U/L ALT 16 10 - 65 U/L EGFR >60 >60 mL/min/1.73m2 CPK 42 (L) 55 - 400 U/L INR 1.0 APTT 26 23 - 32 seconds MMB <0.5 (L) 0.5 - 3.6 ng/mL CK-MB Index UNABLE TO CALCULATE C-Reactive Protein [[id number]] (Abnormal) Collected: 10/22/14319 Order Status: Completed Updated: 10/22/14 0504 Specimen Information: Blood CRP 0.5 (H) <0.5 mg/dL Lactic acid, plasma [[id number]] Collected: 10/22/14319 Order Status: Completed Updated: 10/22/14 0450 Specimen Information: Blood LACTIC ACID 1.7 0.4 - 2.0 mmol/L I personally reviewed the lab results and they have been posted to the chart. Pertinent po sitive and negative findings have been addressed appropriately. Radiology and EKG Evaluation Imaging Results XR Chest AP portable (Final result) Result time: 10/22/14 06:23:46 Final result by Rad Results In Melquiades (10/22/14 06:23:46) Impression: 1. No radiographic evidence of acute pulmonary disease. 2. Now seen is a sclerotic lesion in the midportion of the right clavicle see above discus brett correlate clinically 3. Moderate thoracic spondylosis. Narrative: SLAVA ANDERSON XR CHEST 1 VIEW 10/22/2014 4:59 AM HISTORY: 49 years. Male. Cough, shortness of breath rule out pneumonia TECHNIQUE: XR CHEST 1 VIEW. Frontal view of the chest dual-energy technique. Total of 3 images obtai elio. COMPARISON: 06/28/2014 FINDINGS: Cardiac size is normal. Normal pulmonary vascular pattern. Lungs are expanded without pneum othorax or effusion. No segmental infiltrate, pulmonary nodule or mass, hilar or mediastinal adenopathy. There is now evidence of a sclerotic area in the mid portion of the right clavi jonathon possibly representing residual of prior,/fracture correlate with clinical history. Altho ugh there is a history of malignancy a bony metastatic disease can't be excluded. Degenerati ve changes of the acromioclavicular joints again noted. And moderate thoracic spondylosis. EKG from 0330 Normal sinus tachycardia at 109 Normal [place] and EFRAIN Normal QRS and [place] Normal QT and QTc Normal ST/T without acute ischemic changes EKG dated 06/29/2014 is unchanged in comparison to todays EKG with exception of rate being 130. Interpreted by Matheus Adam DO. ED Diagnoses Final diagnoses Dyspnea Productive cough + exposure to TB home contact HIV (human immunodeficiency virus infection) Neurosyphilis in male on IV PEN Ocular herpes Non compliance with medical treatment SIRS (systemic inflammatory response syndrome) Disposition: ED Disposition Admit/Observation Requested Unit:: Acute Care Bed request special needs: Active upper respiratory infection Comment: droplet isolation Diagnosis?: dyspnea with productive cough in HIV non compliant patient Diagnosis?: home contact with potential TB exposure and productive cough Diagnosis?: Neurosyph. on PICC line with PEN Iv Diagnosis?: non compliance with treatment regimen Follow-up Information None Discharge Medications: Current Discharge Medication List Procedures Additional Documentation Procedures Attending Note: Documentation assistance provided by Grace Foley (Scribe). Information recorded by the scribe has been reviewed and validated by me. I ag teri with its contents. DO Matheus Blue DO 10/22/14 2325 onversion Transac tion, Provider Unknown - 10/22/2014 3:21 AM PSTFormatting of this note might be different f rom the original. ED Notes by Carolyn Corado RN at 10/22/14320 Author: Carolyn Corado RN Service: (none) Author Type: Registered Nurse Filed: 10/22/14320 Date of Service: 10/22/14320 Status: Signed [employer] Dispatcher: Carolyn Corado RN (Registered Nurse) Bed: 05 Expected date: Expected time: Means of arrival: Comments: 1821 docume nted in this encounter Plan of Treatment Not on filedocumented as of this encounter Procedures + +--------+ + + + | Procedure Name | Priori | Date/Time | Associated Diagnosis | Comments | | | ty | | | | + +--------+ + + + | XR CHEST 1 VIEW | Routin | 10/24/2014 | | Results for this | | | e | 11:03 AM | | procedure are in the | | | | PST | | results section. | + +--------+ + + + | CULTURE, AFB, AND | Routin | 10/24/2014 | | Results for this | | SMEAR | e | 4:12 AM | | procedure are in the | | | | PST | | results section. | + +--------+ + + + | EXTERNAL LAB: CBC | Routin | 10/23/2014 | | Results for this | | | e | 4:20 AM | | procedure are in the | | | | PST | | results section. | + +--------+ + + + | LIPID PANEL | Routin | 10/23/2014 | | Results for this | | | e | 4:20 AM | | procedure are in the | | | | PST | | results section. | + +--------+ + + + | COMPREHENSIVE | Routin | 10/23/2014 | | Results for this | | METABOLIC PANEL | e | 4:20 AM | | procedure are in the | | | | PST | | results section. | + +--------+ + + + | TROPONIN I | Routin | 10/22/2014 | | Results for this | | | e | 8:01 PM | | procedure are in the | | | | PST | | results section. | + +--------+ + + + | CK-MB | Routin | 10/22/2014 | | Results for this | | | e | 8:01 PM | | procedure are in the | | | | PST | | results section. | + +--------+ + + + | CK TOTAL | Routin | 10/22/2014 | | Results for this | | | e | 8:01 PM | | procedure are in the | | | | PST | | results section. | + +--------+ + + + | VIRAL DFA STAIN, | Timed | 10/22/2014 | | Results for this | | REFLEX TO VIRAL | | 6:54 PM | | procedure are in the | | CULTURE | | PST | | results section. | + +--------+ + + + | HISTORICAL | Timed | 10/22/2014 | | Results for this | | MICROBIOLOGY RESULT | | 1:17 PM | | procedure are in the | | | | PST | | results section. | + +--------+ + + + | URINALYSIS, REFLEX | Routin | 10/22/2014 | | Results for this | | MICROSCOPIC AND/OR | e | 12:38 PM | | procedure are in the | | CULTURE | | PST | | results section. | + +--------+ + + + | QUANTIFERON GOLD | Routin | 10/22/2014 | | Results for this | | | e | 12:35 PM | | procedure are in the | | | | PST | | results section. | + +--------+ + + + | TROPONIN I | Routin | 10/22/2014 | | Results for this | | | e | 12:35 PM | | procedure are in the | | | | PST | | results section. | + +--------+ + + + | CK-MB | Routin | 10/22/2014 | | Results for this | | | e | 12:35 PM | | procedure are in the | | | | PST | | results section. | + +--------+ + + + | HIV RNA, | Routin | 10/22/2014 | | Results for this | | QUANTITATIVE, PCR | e | 12:35 PM | | procedure are in the | | | | PST | | results section. | + +--------+ + + + | CD4 T CELL PANEL | Routin | 10/22/2014 | | Results for this | | | e | 12:35 PM | | procedure are in the | | | | PST | | results section. | + +--------+ + + + | CK TOTAL | Routin | 10/22/2014 | | Results for this | | | e | 12:35 PM | | procedure are in the | | | | PST | | results section. | + +--------+ + + + | ECG 12 LEAD | Routin | 10/22/2014 | | Results for this | | | e | 10:36 AM | | procedure are in the | | | | PST | | results section. | + +--------+ + + + | INFLUENZA A AND B | STAT | 10/22/2014 | | Results for this | | [place], [place] | | 6:35 AM | | procedure are in the | | | | PST | | results section. | + +--------+ + + + | XR CHEST 1 VIEW | Routin | 10/22/2014 | | Results for this | | | e | 4:59 AM | | procedure are in the | | | | PST | | results section. | + +--------+ + + + | CULTURE, BLOOD, 2ND | STAT | 10/22/2014 | | Results for this | | SPECIMEN (NON-ORD) | | 4:36 AM | | procedure are in the | | | | PST | | results section. | + +--------+ + + + | ECG 12 LEAD | Routin | 10/22/2014 | | Results for this | | | e | 3:29 AM | | procedure are in the | | | | PST | | results section. | + +--------+ + + + | HISTORICAL LAB PANEL | Routin | 10/22/2014 | | Results for this | | RESULT | e | 3:20 AM | | procedure are in the | | | | PST | | results section. | + +--------+ + + + | CULTURE, BLOOD | STAT | 10/22/2014 | | Results for this | | | | 3:20 AM | | procedure are in the | | | | PST | | results section. | + +--------+ + + + | SEDIMENTATION RATE, | Routin | 10/22/2014 | | Results for this | | AUTOMATED | e | 3:20 AM | | procedure are in the | | | | PST | | results section. | + +--------+ + + + | D-DIMER | Routin | 10/22/2014 | | Results for this | | | e | 3:20 AM | | procedure are in the | | | | PST | | results section. | + +--------+ + + + | C-REACTIVE PROTEIN | Routin | 10/22/2014 | | Results for this | | | e | 3:20 AM | | procedure are in the | | | | PST | | results section. | + +--------+ + + + | LACTIC ACID | Routin | 10/22/2014 | | Results for this | | | e | 3:20 AM | | procedure are in the | | | | PST | | results section. | + +--------+ + + + documented in this encounter Results XR Chest 1 Vw (10/24/2014 11:03 AM PST) + + | Specimen | + + | | + + + + + | Impressions | Performed At | + + + | 1. No convincing infiltrate, but immunosuppression lower | | | sensitivity and specificity. | | + + + + + + | Narrative | Performed At | + + + | HISTORY: 49-year-old male, immune suppressed, infection | | | TECHNIQUE: 1. Computer enhanced AP view radiographic examination | | | of the chest. 24 October. 10:41 Prior study for review : 22 October | | | 2013 FINDINGS: PICC line is stable. The sclerosis previously | | | seen in the diaphysis of the clavicles less conspicuous. Could be | | | artifactual previously Lung markings are slightly coarse but | | | symmetric. Lung volumes are unchanged. No consolidative infiltrate or | | | effusion. No pneumothorax Stable skeleton to technique. Cosmetic | | | ring about the right male nipple | | + + + + + | Procedure Note | + + | Melquiades, Rad Conversion - 06/25/2019 11:46 AM PDT HISTORY: 49-year-old male, immune | | suppressed, infection TECHNIQUE: 1. Computer enhanced AP view radiographic examination | | of the chest. 24 October. 10:41Prior study for review : 22 October 2014 FINDINGS: PICC | | line is stable. The sclerosis previously seen in the diaphysis of the clavicles less | | conspicuous. Could be artifactual previously Lung markings are slightly coarse but | | symmetric. Lung volumes are unchanged. No consolidative infiltrate or effusion. No | | pneumothorax Stable skeleton to technique. Cosmetic ring about the right male nipple | | IMPRESSION: 1. No convincing infiltrate, but immunosuppression lower sensitivity and | | specificity. | |PICC line is stable. The sclerosis previously seen in the diaphysis of the clavicles less c onspicuous. Could be artifactual previously | | | |Lung markings are slightly coarse but symmetric. Lung volumes are unchanged. No consolidati ve infiltrate or effusion. No pneumothorax | | | |Stable skeleton to technique. Cosmetic ring about the right male nipple | | | |IMPRESSION: | | | |1. No convincing infiltrate, but immunosuppression lower sensitivity and specificity. | | | | | | | | | + + Culture, AFB, and Smear (10/24/2014 4:12 AM PST) + + | Specimen | + + | Body fluid sample | | (specimen) | + + + + + | Narrative | Performed At | + + + | Specimen Description SPUTUM AFB STAIN | EXTERNAL LAB | | NO ACID FAST BACILLI SEEN CULTURE | | | NO ACID FAST BACILLI | | | ISOLATED Testing | | | performed at [facility], [address] [place] [address] | | + + + + +---------+ + + | Performing | Address | City/State/Zipcode | Phone Number | | Organization | | | | + +---------+ + + | EXTERNAL LAB | | | | + +---------+ + + External Lab: CBC (10/23/2014 4:20 AM PST) + + + + + + | Component | Value | Ref Range | Performed | Pathologist | | | | | At | Signature | + + + + + + | WBC | 4.9Comment: Testing | 3.8 - 11.0 K/uL | EXTERNAL | | | | performed at [facility], [address] | | LAB | | | | [address] [place], | | | | | | [place] [address] | | | | + + + + + + | Non- | 4.63Comment: Testing | 4.20 - 5.70 | EXTERNAL | | | Red Blood | performed at [facility], [address] | M/uL | LAB | | | Cells | [address], | | | | | Counted | [place] [address] | | | | + + + + + + | Hemoglobin | 12.3 (L)Comment: Testing | 13.2 - 17.0 | EXTERNAL | | | | performed at [facility], [address] | g/dL | LAB | | | | [address], | | | | | | [place] [address] | | | | + + + + + + | Hematocrit, | 37.3 (L)Comment: Testing | 39.0 - 50.0 % | EXTERNAL | | | POC | performed at [facility], [address] | | LAB | | | | [address], | | | | | | [place] [address] | | | | + + + + + + | MCV | 80.5Comment: Testing | 80.0 - 100.0 fl | EXTERNAL | | | | performed at [facility], [address] | | LAB | | | | [address], | | | | | | [place] [address] | | | | + + + + + + | MCH | 26.5 (L)Comment: Testing | 27.0 - 34.0 pg | EXTERNAL | | | | performed at [facility], [address] | | LAB | | | | [address], | | | | | | [place] [address] | | | | + + + + + + | MCHC | 32.9Comment: Testing | 32.0 - 35.5 | EXTERNAL | | | | performed at [facility], [address] | g/dL | LAB | | | | [address], | | | | | | [place] [address] | | | | + + + + + + | RDW-CV | 48.1Comment: Testing | 37 - 53 fl | EXTERNAL | | | | performed at [facility], [address] | | LAB | | | | [address], | | | | | | [place] [address] | | | | + + + + + + | Platelet | 182Comment: Testing | 150 - 400 K/uL | EXTERNAL | | | Count | performed at [facility], [address] | | LAB | | | Plasma | [address], | | | | | | [place] [address] | | | | + + + + + + | MPV | 8.7Comment: Testing | fl | EXTERNAL | | | | performed at [facility], [address] | | LAB | | | | [address], | | | | | | [place], [place] [address] | | | | + + + + + + | Differentia | MANUALComment: Testing | | EXTERNAL | | | l Type | performed at [facility], [address] | | LAB | | | | [address], | | | | | | [place], [place] [address] | | | | + + + + + + | Segmented | 45Comment: Testing | % | EXTERNAL | | | Neutrophils | performed at [facility], [address] | | LAB | | | Manual | [address], | | | | | | [place] [address] | | | | + + + + + + | % Bands | 4Comment: Testing | % | EXTERNAL | | | | performed at [facility], [address] | | LAB | | | | [address], | | | | | | [place] [address] | | | | + + + + + + | Lymphocytes | 42Comment: Testing | % | EXTERNAL | | | Manual | performed at [facility], [address] | | LAB | | | | [address], | | | | | | [place] [address] | | | | + + + + + + | % Atypical | 3Comment: Testing | % | EXTERNAL | | | Lymphocytes | performed at [facility], [address] | | LAB | | | | [address], | | | | | | [place] [address] | | | | + + + + + + | Monocytes | 5Comment: Testing | % | EXTERNAL | | | Manual | performed at [facility], [address] | | LAB | | | | [address], | | | | | | [place] [address] | | | | + + + + + + | Eosinophils | 1Comment: Testing | % | EXTERNAL | | | Manual | performed at [facility], [address] | | LAB | | | | [address], | | | | | | [place] [address] | | | | + + + + + + | Absolute | 2.2Comment: Testing | 1.9 - 7.4 K/uL | EXTERNAL | | | Neutrophils | performed at [facility], [address] | | LAB | | | | [address], | | | | | | [place] [address] | | | | + + + + + + | Bands | 0.2Comment: Testing | 0 - 0.2 K/uL | EXTERNAL | | | Manual | performed at [facility], [address] | | LAB | | | | [address], | | | | | | [place] [address] | | | | + + + + + + | Absolute | 2.1Comment: Testing | 1.0 - 3.9 K/uL | EXTERNAL | | | Lymphocytes | performed at [facility], [address] | | LAB | | | | [address], | | | | | | [place] [address] | | | | + + + + + + | Absolute | 0.1 (H)Comment: Testing | K/uL | EXTERNAL | | | Atypical | performed at [facility], [address] | | LAB | | | Lymphocytes | [address], | | | | | | [place] [address] | | | | + + + + + + | Absolute | 0.2Comment: Testing | 0 - 0.8 K/uL | EXTERNAL | | | Monocytes | performed at [facility], [address] | | LAB | | | | [address], | | | | | | [place] [address] | | | | + + + + + + | Absolute | 0.1Comment: Testing | 0 - 0.5 K/uL | EXTERNAL | | | Eosinophils | performed at [facility], [address] | | LAB | | | | [address], | | | | | | [place] [address] | | | | + + + + + + | RBC | RBC AND PLT MORPHOLOGY | | EXTERNAL | | | Morphology | APPEAR NORMALComment: | | LAB | | | | Testing performed at | | | | | | [facility], [address] [facility] | | | | | | [place] | | | | | | [address] | | | | + + + + + + + + | Specimen | + + | Blood specimen | | (specimen) | + + + +---------+ + + | Performing | Address | City/State/Zipcode | Phone Number | | Organization | | | | + +---------+ + + | EXTERNAL LAB | | | | + +---------+ + + Lipid Panel (10/23/2014 4:20 AM PST) + + + + + + | Component | Value | Ref Range | Performed | Pathologist | | | | | At | Signature | + + + + + + | Cholesterol | 122Comment: Testing | mg/dL | EXTERNAL | | | | performed at [facility], [address] | | LAB | | | | [address], | | | | | | [place] [address] | | | | + + + + + + | Triglycerid | 80Comment: Testing | mg/dL | EXTERNAL | | | es | performed at [facility], [address] | | LAB | | | | [address], | | | | | | [place] [address] | | | | + + + + + + | HDL | 30 (L)Comment: Testing | mg/dL | EXTERNAL | | | | performed at [facility], [address] | | LAB | | | | [address], | | | | | | [place] [address] | | | | + + + + + + | LDL, | 76Comment: Testing | mg/dL | EXTERNAL | | | Calculated | performed at [facility], [address] | | LAB | | | | [address], | | | | | | [place] [address] | | | | + + + [...] + +---------+ + + Comprehensive Metabolic Panel (10/23/2014 4:20 AM PST) + + + + + + | Component | Value | Ref Range | Performed | Pathologist | | | | | At | Signature | + + + + + + | Na | 133 (L)Comment: Testing | 135 - 143 | EXTERNAL | | | | performed at [facility], [address] | mmol/L | LAB | | | | [address] [place], | | | | | | [place] [address] | | | | + + + + + + | K | 4.3Comment: Testing | 3.5 - 4.9 | EXTERNAL | | | | performed at [facility], [address] | mmol/L | LAB | | | | [address], | | | | | | [place] [address] | | | | + + + + + + | Cl | 100Comment: Testing | 99 - 109 mmol/L | EXTERNAL | | | | performed at [facility], [address] | | LAB | | | | [address], | | | | | | [place] [address] | | | | + + + + + + | CO2 | 27Comment: Testing | 23 - 32 mmol/L | EXTERNAL | | | | performed at [facility], [address] | | LAB | | | | [address], | | | | | | [place] [address] | | | | + + + + + + | Anion Gap | 10Comment: Testing | 5 - 20 mmol/L | EXTERNAL | | | | performed at [facility], [address] | | LAB | | | | [address], | | | | | | [place] [address] | | | | + + + + + + | Glucose, | 133 (H)Comment: Testing | 65 - 99 mg/dL | EXTERNAL | | | Fasting | performed at [facility], [address] | | LAB | | | | [address], | | | | | | [place] [address] | | | | + + + + + + | BUN | 13Comment: Testing | 8 - 25 mg/dL | EXTERNAL | | | | performed at [facility], [address] | | LAB | | | | [address], | | | | | | [place] [address] | | | | + + + + + + | Creatinine | 0.72Comment: Testing | 0.70 - 1.30 | EXTERNAL | | | | performed at [facility], [address] | mg/dL | LAB | | | | [address], | | | | | | [place] [address] | | | | + + + + + + | BUN/Creatin | 18Comment: Testing | | EXTERNAL | | | ine Ratio | performed at [facility], [address] | | LAB | | | | [address], | | | | | | [place] [address] | | | | + + + + + + | Calcium | 9.0Comment: Testing | 8.5 - 10.2 | EXTERNAL | | | | performed at [facility], [address] | mg/dL | LAB | | | | [address], | | | | | | [place] [address] | | | | + + + + + + | Protein, | 7.5Comment: Testing | 6.3 - 8.2 g/dL | EXTERNAL | | | Total | performed at [facility], [address] | | LAB | | | [address], | | | | | | [place] [address] | | | | + + + + + + | Albumin | 3.7Comment: Testing | 3.6 - 5.0 g/dL | EXTERNAL | | | | performed at [facility], [address] | | LAB | | | | [address], | | | | | | [place] [address] | | | | + + + + + + | Globulin | 3.8Comment: Testing | 1.3 - 4.9 g/dL | EXTERNAL | | | | performed at [facility], [address] | | LAB | | | | [address], | | | | | | [place] [address] | | | | + + + + + + | A/G Ratio | 1.0Comment: Testing | 1.0 - 2.4 | EXTERNAL | | | | performed at [facility], [address] | | LAB | | | | [address], | | | | | | [place] [address] | | | | + + + + + + | Bilirubin | 0.3Comment: Testing | 0.1 - 1.5 mg/dL | EXTERNAL | | | Total | performed at [facility], [address] | | LAB | | | | [address], | | | | | | [place] [address] | | | | + + + + + + | ALP, | 83Comment: Testing | 35 - 115 U/L | EXTERNAL | | | External | performed at [facility], [address] | | LAB | | | | [address], | | | | | | [place] [address] | | | | + + + + + + | AST | 15Comment: Testing | 10 - 45 U/L | EXTERNAL | | | | performed at [facility], [address] | | LAB | | | | [address], | | | | | | [place] [address] | | | | + + + + + + | ALT | 10Comment: Testing | 10 - 65 U/L | EXTERNAL | | | | performed at [facility], [address] | | LAB | | | | [address], | | | | | | [place] [address] | | | | + + + [...] | | | | | | at [facility], [address] | | | | | | [address], | | | | | | [place] [address] | | | | + + + + + + + + | Specimen | + + | Blood specimen | | (specimen) | + + + +---------+ + + | Performing | Address | City/State/Zipcode | Phone Number | | Organization | | | | + +---------+ + + | EXTERNAL LAB | | | | + +---------+ + + CK-MB (10/22/2014 8:01 PM PST) + + + + + -+ | Component | Value | Ref Range | Performed | Pathologist | | | | | At | Signature | + + + + + -+ | CK-MB | 0.5Comment: Testing | 0.5 - 3.6 ng/mL | EXTERNAL | | | | performed at [facility];[address] | | LAB | | | | [address];[place], [place] | | | | | | [address] | | | | + + + + + -+ | CK-MB Index | 1.1Comment: CK INDEX | | EXTERNAL | | [...] | + +---------+ + + Troponin I (10/22/2014 8:01 PM PST) + + + + + [...] | | | | | | ACUTE [place] Testing | | | | | | performed at [facility] | | | | | | [facility];[place], [place] | | | | | | [address] | | | | + + + + + + + + | Specimen | + + | Blood specimen | | (specimen) | + + + +---------+ + + | Performing | Address | City/State/Zipcode | Phone Number | | Organization | | | | + +---------+ + + | EXTERNAL LAB | | | | + +---------+ + + CK Total (10/22/2014 8:01 PM PST) + + + + + + | Component | Value | Ref Range | Performed | Pathologist | | | | | At | Signature | + + + + + + | CK, Total | 47 (L)Comment: Testing | 55 - 400 U/L | EXTERNAL | | | | performed at [facility];[address] | | LAB | | | | [address];[place] | | | | | | [address] | | | | + + + + + + + + | Specimen | + + | Blood specimen | | (specimen) | + + + +---------+ + + | Performing | Address | City/State/Zipcode | Phone Number | | Organization | | | | + +---------+ + + | EXTERNAL LAB | | | | + +---------+ + + Viral DFA Stain, Reflex to Viral Culture (10/22/2014 6:54 PM PST) + + | Specimen | + + | | + + + + + | Narrative | Performed At | + + + | MICRO SPECIMEN SOURCE NASOPHARYNGEAL Testing | EXTERNAL LAB | | performed at [facility];[address] [place] [address];[place] [address] VIRAL CULT DFA | | | STAIN ACCESSION NO. | | | [id number] SPECIMEN SOURCE | | | NASOPHARYNGEAL DFA | | | NEGATIVE FOR ADENOVIRUS, RESPIRATORY | | | SYNCYTIAL VIRUS, INFLUENZA A AND B | | | VIRUS, PARA INFLUENZA VIRUSES TYPES | | | 1,2,3 AND HUMAN | | | METAPNEUMOVIRUS BY | | | DIRECT FLUORESCENT ANTIBODY STAIN. RESULT | | | INFLUENZA A VIRUS ISOLATED Testing performed at [facility], [facility] | | | [facility] [address] REPORT STATUS | | | REPORT STATUS FINAL | | | 10/26/2014 Testing performed at [facility], [address] [place] [address] | | | [address] | | + + + + +---------+ + + | Performing | Address | City/State/Zipcode | Phone Number | | Organization | | | | + +---------+ + + | EXTERNAL LAB | | | | + +---------+ + + HISTORICAL MICROBIOLOGY RESULT (10/22/2014 1:17 PM PST) + + | Specimen | + + | Body fluid sample | | (specimen) | + + + + + | Narrative | Performed At | + + + | MICRO SPECIMEN SOURCE SPUTUM Testing | EXTERNAL LAB | | performed at [facility];[address] [place] [address];[place] [address] Pneumocystis Smear, | | | DFA ACCESSION NO. | | | [id number] SPECIMEN SOURCE SPUTUM | | | RESULT NO PNEUMOCYSTIS SEEN | | | BY DIRECT | | | FLUORESCENT ANTIBODY STAIN Testing performed at [facility] | | | [place], [facility] [address] [place] [address] PNEMOCYSTIS FA,STATUS | | | REPORT STATUS FINAL 10/24/2014 | | | Testing performed at [facility], [address] [facility] | | | [place] [address] | | + + + + +---------+ + + | Performing | Address | City/State/Zipcode | Phone Number | | Organization | | | | + +---------+ + + | EXTERNAL LAB | | | | + +---------+ + + Urinalysis, Reflex Microscopic and/or Culture (10/22/2014 12:38 PM PST) + + + + + + | Component | Value | Ref Range | Performed | Pathologist | | | | | At | Signature | + + + + + + | Color | YELLOWComment: Testing | | EXTERNAL | | | | performed at [facility], [address] | | LAB | | | | [address], | | | | | | [place] [address] | | | | + + + + + + | Clarity, | CLEARComment: Testing | | EXTERNAL | | | Urine | performed at [facility], [address] | | LAB | | | | [address], | | | | | | [place] [address] | | | | + + + + + + | Specific | 1.012Comment: Testing | 1.002 - 1.030 | EXTERNAL | | | [place], | performed at [facility], [address] | | LAB | | | Urine | [address], | | | | | | [place] [address] | | | | + + + + + + | Leukocyte | NEGATIVEComment: Testing | | EXTERNAL | | | Esterase, | performed at [facility], [address] | | LAB | | | [address] | [address], | | | | | | [place] [address] | | | | + + + + + + | Nitrite, | NEGATIVEComment: Testing | | EXTERNAL | | | Urine | performed at [facility], [address] | | LAB | | | | [address], | | | | | | [place] [address] | | | | + + + + + + | Urobilinoge | 0.2Comment: Testing | mg/dL | EXTERNAL | | | n, Urine | performed at [facility], [address] | | LAB | | | | [address], | | | | | | [place] [address] | | | | + + + + + + | Protein, | NEGATIVEComment: Testing | mg/dL | EXTERNAL | | | Urine | performed at [facility], [address] | | LAB | | | | [address], | | | | | | [place] [address] | | | | + + + + + + | pH, Urine | 5.5Comment: Testing | 5.0 - 8.0 | EXTERNAL | | | | performed at [facility], [address] | | LAB | | | | [address], | | | | | | [place] [address] | | | | + + + + + + | Blood, | NEGATIVEComment: Testing | | EXTERNAL | | | Urine | performed at [facility], [address] | | LAB | | | | [address], | | | | | | [place] [address] | | | | + + + + + + | Ketones | NEGATIVEComment: Testing | mg/dL | EXTERNAL | | | | performed at [facility], [address] | | LAB | | | | [address], | | | | | | [place] [address] | | | | + + + + + + | Bilirubin, | NEGATIVEComment: Testing | | EXTERNAL | | | Urine | performed at [facility], [address] | | LAB | | | | [address], | | | | | | [place] [address] | | | | + + + + + + | Glucose, | NEGATIVEComment: Testing | mg/dL | EXTERNAL | | | Urine | performed at [facility], [address] | | LAB | | | | [address], | | | | | | [place] [address] | | | | + + + + + + + + | Specimen | + + | Urine specimen | | (specimen) | + + + +---------+ + + | Performing | Address | City/State/Zipcode | Phone Number | | Organization | | | | + +---------+ + + | EXTERNAL LAB | | | | + +---------+ + + Osvaldo Garcia (10/22/2014 12:35 PM PST) + + + + + + | Component | Value | Ref Range | Performed | Pathologist | | | | | At | Signature | + + + + + + | Quantiferon | NEGATIVEComment: Testing | | EXTERNAL | | | TB Gold | performed at [facility], [address] | | LAB | | | | [address] [facility] | | | | | | [place] [address] | | | | + + + + + + | TB 1 | 0.00Comment: <0.35 M | IU/mL | EXTERNAL | | | Antigen | TUBERCULOSIS | | LAB | | | Minus NIL | UNLIKELYTHIS IS A | | | | | | QUALITATIVE TEST. THE | | | | | | IU/ML VALUE SHOULD NOT | | | | | | BE USED TOMONITOR | | | | | | DISEASE PROGRESSION OR | | | | | | RESPONSE TO THERAPY. | | | | | | DIAGNOSING OREXCLUDING | | | | | | TUBERCULOSIS DISEASE | | | | | | AND ASSESSING THE | | | | | | PROBABILITY OF | | | | | | LTBIREQUIRE A | | | | | | COMBINATION OF | | | | | | EPIDEMIOLOGICAL, | | | | | | HISTORICAL, MEDICAL | | | | | | ANDDIAGNOSTIC FINDINGS | | | | | | THAT SHOULD BE TAKEN | | | | | | INTO ACCOUNT | | | | | | WHENINTERPRETING | | | | | | QUANTIFERON-TB GOLD | | | | | | RESULTS.Testing | | | | | | performed at [facility], [address] | | | | | | [facility] | | | | | | [place] [address] | | | | + + + + + + + + | Specimen | + + | | + + + +---------+ + + | Performing | Address | City/State/Zipcode | Phone Number | | Organization | | | | + +---------+ + + | EXTERNAL LAB | | | | + +---------+ + + HIV RNA, quantitative, PCR (10/22/2014 12:35 PM PST) + + + + + + | Component | Value | Ref Range | Performed | Pathologist | | | | | At | Signature | + + + + + + | HIV-1 VIRAL | 5.4 (A)Comment: Testing | Log copies/mL | EXTERNAL | | | RESULT | performed at [facility], [address] | | LAB | | | (REF) | [address] | | | | | | [place] [address] | | | | + + + + + + | HIV-1 VIRAL | [id number] (A)Comment: | Copies/mL | EXTERNAL | | | LOAD | Testing performed at | | LAB | | | RESULT | [facility], [address] | | | | | | [place] | | | | | | [address] | | | | + + + [...] | | | | | performed at [facility], [address] | | | | | | [address] | | | | | | [place] [address] | | | | + + + + + + + + | Specimen | + + | | + + + +---------+ + + | Performing | Address | City/State/Zipcode | Phone Number | | Organization | | | | + +---------+ + + | EXTERNAL LAB | | | | + +---------+ + + CK-MB (10/22/2014 12:35 PM PST) + + + + + + | Component | Value | Ref Range | Performed | Pathologist | | | | | At | Signature | + + + + + + | CK-MB | <0.5 (L)Comment: Testing | 0.5 - 3.6 ng/mL | EXTERNAL | | | | performed at [facility];[address] | | LAB | | | | [address];[place] | | | | | | [address] | | | | + + + + + + | CK-MB Index | UNABLE TO | | EXTERNAL | | | | CALCULATEComment: | | LAB | | | | Testing performed at | | | | | | [facility];[address] [facility] | | | | | | [facility];[place] [address] | | | | + + + + + + + + | Specimen | + + | | + + + +---------+ + + | Performing | Address | City/State/Zipcode | Phone Number | | Organization | | | | + +---------+ + + | EXTERNAL LAB | | | | + +---------+ + + Troponin I (10/22/2014 12:35 PM PST) + + + + + [...] | | | | | | ACUTE [place] Testing | | | | | | performed at [facility];[address] | | | | | | [facility];[place], [place] | | | | | | [address] | | | | + + + [...] +---------+ + + CD4 T Cell Panel (10/22/2014 12:35 PM PST) + + + + + + | Component | Value | Ref Range | Performed | Pathologist | | | | | At | Signature | + + + + + + | Source | BLOODComment: Testing | | EXTERNAL | | | | performed by [facility] | | LAB | | | | [place] [address] | | | | + + + + + + | WBC | 5.6Comment: Testing | 3.8 - 11.0 K/uL | EXTERNAL | | | | performed at [facility] | | LAB | | | | [facility], | | | | | | [address], [place] | | | | | | [address] | | | | + + + + + + | Lymphocytes | 37.2Comment: Testing | 15.0 - 48.0 % | EXTERNAL | | | Manual | performed at [facility] | | LAB | | | | [facility], | | | | | | [address], [place] | | | | | | [address] | | | | + + + + + + | Absolute | 2.10Comment: Testing | 1.00 - 3.90 | EXTERNAL | | | Lymphocytes | performed at [facility] | K/uL | LAB | | | | [facility], | | | | | | [address], [place] | | | | | | [address] | | | | + + + + + + | CD4- | 10.6 (L)Comment: Testing | 30.0 - 65.0 % | EXTERNAL | | | | performed at [facility] | | LAB | | | | [facility], | | | | | | [address], [place] | | | | | | [address] | | | | + + + + + + | Absolute | 223 (L)Comment: Testing | 490 - 1400 /uL | EXTERNAL | | | CD4 ([place] | performed at [facility] | | LAB | | | T) Cells | [facility], | | | | | | [address] [place] | | | | | | [address] | | | | + + + [...] | | | | | | DETERMINEDBY [facility] | | | | | | [facility] | | | | | ALSIP. IT HAS NOT BEEN | | | [...] | | | | | performed at [facility] | | | | | | [facility], | | | | | | [address], [facility] | | | | | | [address] | | | | + + + + + + + + | Specimen | + + | Blood specimen | | (specimen) | + + + +---------+ + + | Performing | Address | City/State/Zipcode | Phone Number | | Organization | | | | + +---------+ + + | EXTERNAL LAB | | | | + +---------+ + + CK Total (10/22/2014 12:35 PM PST) + + + + + + | Component | Value | Ref Range | Performed | Pathologist | | | | | At | Signature | + + + + + + | CK, Total | 38 (L)Comment: Testing | 55 - 400 U/L | EXTERNAL | | | | performed at [facility];[address] | | LAB | | | | [address];[place], [place] | | | | | | [address] | | | | + + + + + + + + | Specimen | + + | Blood specimen | | (specimen) | + + + +---------+ + + | Performing | Address | City/State/Zipcode | Phone Number | | Organization | | | | + +---------+ + + | EXTERNAL LAB | | | | + +---------+ + + ECG 12 lead (10/22/2014 10:36 AM PST) + + + + + [...] | | | | with ECG of 29-JUN-2014 | | | | | | 21:48,No significant | | | | | | change was | | | | | | foundConfirmed by | | | | | | DAINA SANDOVAL ([id number]) on | | | | | | 10/23/2014 7:30:49 PM | | | | + + + + + + + + | Specimen | + + | | + + + + + | Narrative | Performed At | + + + | Historically converted procedure from [facility] Epic environment | EXTERNAL LAB | + + + + +---------+ + + | Performing | Address | City/State/Zipcode | Phone Number | | Organization | | | | + +---------+ + + | EXTERNAL LAB | | | | + +---------+ + + Influenza A and B Ag, [place] (10/22/2014 6:35 AM PST) + + | Specimen | + + | | + + + + + | Narrative | Performed At | + + + | Specimen Description NASOPHARYNGEAL RESULT | EXTERNAL LAB | | Negative for Influenzae Type A | | | and Type B antigen by ICA | | | Testing performed at [facility];[address] [place] [address];[place] [address] | | + + + + +---------+ + + | Performing | Address | City/State/Zipcode | Phone Number | | Organization | | | | + +---------+ + + | EXTERNAL LAB | | | | + +---------+ + + XR Chest 1 Vw (10/22/2014 4:59 AM PST) + + | Specimen | + + | | + + + + + | Impressions | Performed At | + + + | 1. No radiographic evidence of acute pulmonary disease. 2. Now | | | seen is a sclerotic lesion in the midportion of the right clavicle see | | | above discussion correlate clinically 3. Moderate thoracic | | | spondylosis. | | + + + + + + | Narrative | Performed At | + + + | SLAVA ANDERSON XR CHEST 1 VIEW 10/22/2014 4:59 AM HISTORY: 49 | | | years. Male. Cough, shortness of breath rule out pneumonia | | | TECHNIQUE: XR CHEST 1 VIEW. Frontal view of the chest dual-energy | | | technique. Total of 3 images obtained. COMPARISON: 06/28/2014 | | | FINDINGS: Cardiac size is normal. Normal pulmonary vascular | | | pattern. Lungs are expanded without pneumothorax or effusion. No | | | segmental infiltrate, pulmonary nodule or mass, hilar or mediastinal | | | adenopathy. There is now evidence of a sclerotic area in the mid | | | portion of the right clavicle possibly representing residual of | | | prior,/fracture correlate with clinical history. Although there is a | | | history of malignancy a bony metastatic disease can't be excluded. | | | Degenerative changes of the acromioclavicular joints again noted. | | | And moderate thoracic spondylosis. | | + + + + + | Procedure Note | + + | Melquiades, Rad Conversion - 06/25/2019 11:46 AM PDT SLAVA ANDERSONXR CHEST 1 VIEW10/22/2014 | | 4:59 AM HISTORY:49 years. Male. Cough, shortness of breath rule out pneumonia | | TECHNIQUE:XR CHEST 1 VIEW. Frontal view of the chest dual-energy technique. Total of 3 | | images obtained. COMPARISON:06/28/2014 FINDINGS:Cardiac size is normal. Normal pulmonary | | vascular pattern. Lungs are expanded without pneumothorax or effusion. No segmental | | infiltrate, pulmonary nodule or mass, hilar or mediastinal adenopathy. There is now | | evidence of a sclerotic area in the mid portion of the right clavicle possibly | | representing residual of prior,/fracture correlate with clinical history. Although there | | is a history of malignancy a bony metastatic disease can't be excluded. Degenerative | | changes of the acromioclavicular joints again noted. And moderate thoracic spondylosis. | | IMPRESSION: 1. No radiographic evidence of acute pulmonary disease.2. Now seen is a | | sclerotic lesion in the midportion of the right clavicle see above discussion correlate | | clinically3. Moderate thoracic spondylosis. | |Cardiac size is normal. Normal pulmonary vascular pattern. Lungs are expanded without pneum othorax or effusion. No segmental infiltrate, pulmonary nodule or mass, hilar or mediastinal adenopathy. There is now evidence of a sclerotic area in the mid | |portion of the right clavicle possibly representing residual of prior,/fracture correlate w ith clinical history. Although there is a history of malignancy a bony metastatic disease ca n't be excluded. | |Degenerative changes of the acromioclavicular joints | |again noted. And moderate thoracic spondylosis. | | | |IMPRESSION: | |1. No radiographic evidence of acute pulmonary disease. | |2. Now seen is a sclerotic lesion in the midportion of the right clavicle see above discus brett correlate clinically | |3. Moderate thoracic spondylosis. | | | | | | | | | + + Culture, Blood, 2nd Specimen (10/22/2014 4:36 AM PST) + + | Specimen | + + | Blood specimen | | (specimen) | + + + + + | Narrative | Performed At | + + + | Specimen Description BLOOD SPECIAL | EXTERNAL LAB | | REQUESTS L HAND | | | Testing performed at [facility];[address] | | | [address];[place] [address] CULTURE | | | NO GROWTH | | | Testing performed at [facility], [address] [facility], [place], [place] | | | [address] | | + + + + +---------+ + + | Performing | Address | City/State/Zipcode | Phone Number | | Organization | | | | + +---------+ + + | EXTERNAL LAB | | | | + +---------+ + + ECG 12 lead (10/22/2014 3:29 AM PST) + + + + + [...] | | | | with ECG of 29-JUN-2014 | | | | | | 21:48,No significant | | | | | | [...] | | | | | ONLY, -COMPUTER ([id number]), | | | | | | vendor management associate Ana Bunch | | | | | | (29) on 10/22/2014 | | | | | | 4:26:15 PM | | | | + + + + + + + + | Specimen | + + | | + + + + + | Narrative | Performed At | + + + | Historically converted procedure from [facility] Epic environment | EXTERNAL LAB | + + + + +---------+ + + | Performing | Address | City/State/Zipcode | Phone Number | | Organization | | | | + +---------+ + + | EXTERNAL LAB | | | | + +---------+ + + HISTORICAL LAB PANEL RESULT (10/22/2014 3:20 AM PST) + + + + + + | Component | Value | Ref Range | Performed | Pathologist | | | | | At | Signature | + + + + + + | WBC | 6.5Comment: Testing | 3.8 - 11.0 K/uL | EXTERNAL | | | | performed at [facility];[address] | | LAB | | | | [address];[place] | | | | | | [address] | | | | + + + + + + | Non- | 5.06Comment: Testing | 4.20 - 5.70 | EXTERNAL | | | Red Blood | performed at [facility];[address] | M/uL | LAB | | | Cells | [address];[place] | | | | | Counted | [id number] | | | | + + + + + + | Hemoglobin | 13.2Comment: Testing | 13.2 - 17.0 | EXTERNAL | | | | performed at [facility];[address] | g/dL | LAB | | | | [address];[place] | | | | | | [address] | | | | + + + + + + | Hematocrit, | 40.3Comment: Testing | 39.0 - 50.0 % | EXTERNAL | | | POC | performed at [facility];[address] | | LAB | | | | [address];[place] | | | | | | [address] | | | | + + + + + + | MCV | 79.6 (L)Comment: Testing | 80.0 - 100.0 fl | EXTERNAL | | | | performed at [facility];[address] | | LAB | | | [address];[place] | | | | | | [address] | | | | + + + + + + | MCH | 26.1 (L)Comment: Testing | 27.0 - 34.0 pg | EXTERNAL | | | | performed at [facility];[address] | | LAB | | | | [address];[place] | | | | | | [address] | | | | + + + + + + | MCHC | 32.8Comment: Testing | 32.0 - 35.5 | EXTERNAL | | | | performed at [facility];[address] | g/dL | LAB | | | | [address];[place] | | | | | | [address] | | | | + + + + + + | RDW-CV | 47.7Comment: Testing | 37 - 53 fl | EXTERNAL | | | | performed at [facility];[address] | | LAB | | | | [address];[place] | | | | | | [address] | | | | + + + + + + | Platelet | 225Comment: Testing | 150 - 400 K/uL | EXTERNAL | | | Count | performed at [facility];[address] | | LAB | | | Plasma | [address];[place] | | | | | | [address] | | | | + + + + + + | MPV | 8.4Comment: Testing | fl | EXTERNAL | | | | performed at [facility];[address] | | LAB | | | | [address];[place] | | | | | | [address] | | | | + + + + + + | Differentia | AUTOMATEDComment: | | EXTERNAL | | | l Type | Testing performed at | | LAB | | | | [facility];[address];[place] [address] | | | | + + + + + + | % Segmented | 54.1Comment: Testing | % | EXTERNAL | | | | performed at [facility];[address] | | LAB | | | Neutrophils | [address];[place] | | | | | | [address] | | | | + + + + + + | % | 35.0Comment: Testing | % | EXTERNAL | | | Lymphocytes | performed at [facility];[address] | | LAB | | | | [address];[place] | | | | | | [address] | | | | + + + + + + | % Monocytes | 8.0Comment: Testing | % | EXTERNAL | | | | performed at [facility];[address] | | LAB | | | | [address];[place] | | | | | | [address] | | | | + + + + + + | % | 2.2Comment: Testing | % | EXTERNAL | | | Eosinophils | performed at [facility];[address] | | LAB | | | | [address];[place] | | | | | | [address] | | | | + + + + + + | % Basophils | 0.7Comment: Testing | % | EXTERNAL | | | | performed at [facility];[address] | | LAB | | | | [address];[place] | | | | | | [address] | | | | + + + + + + | Absolute | 3.5Comment: Testing | 1.9 - 7.4 K/uL | EXTERNAL | | | Segmented | performed at [facility];[address] | | LAB | | | Neutrophils | [address];[place] | | | | | | [address] | | | | + + + + + + | Absolute | 2.3Comment: Testing | 1.0 - 3.9 K/uL | EXTERNAL | | | Lymphocytes | performed at [facility];[address] | | LAB | | | | [address];[place] | | | | | | [address] | | | | + + + + + + | Absolute | 0.5Comment: Testing | 0 - 0.8 K/uL | EXTERNAL | | | Monocytes | performed at [facility];[address] | | LAB | | | | [address];[place] | | | | | | [address] | | | | + + + + + + | Absolute | 0.1Comment: Testing | 0 - 0.5 K/uL | EXTERNAL | | | Eosinophils | performed at [facility];[address] | | LAB | | | | [address];[place] | | | | | | [address] | | | | + + + + + + | Absolute | 0.0Comment: Testing | 0 - 0.1 K/uL | EXTERNAL | | | Basophils | performed at [facility];[address] | | LAB | | | | [address];[place] | | | | | | [address] | | | | + + + + + + | Differentia | SLIDE SCANNED, AGREES | | EXTERNAL | | | l Comments | WITH AUTOMATED | | LAB | | | | RESULTS.Comment: RBC AND | | | | | | PLT MORPHOLOGY APPEAR | | | | | | NORMALTesting performed | | | | | | at [facility];[address] | | | | | [address];[place] [address] | | | | + + + + + + | Na | 137Comment: Testing | 135 - 143 | EXTERNAL | | | | performed at [facility];888 | mmol/L | LAB | | | | [address];[place] | | | | | | [address] | | | | + + + + + + | K | 3.8Comment: Testing | 3.5 - 4.9 | EXTERNAL | | | | performed at [facility];[address] | mmol/L | LAB | | | | [address];[place] | | | | | | [address] | | | | + + + + + + | Cl | 104Comment: Testing | 99 - 109 mmol/L | EXTERNAL | | | | performed at [facility];[address] | | LAB | | | | [address];[place] | | | | | | [address] | | | | + + + + + + | CO2 | 24Comment: Testing | 23 - 32 mmol/L | EXTERNAL | | | | performed at [facility];[address] | | LAB | | | | [address];[place] | | | | | | [address] | | | | + + + + + + | Anion Gap | 13Comment: Testing | 5 - 20 mmol/L | EXTERNAL | | | | performed at [facility];[address] | | LAB | | | | [address];[place] | | | | | | [address] | | | | + + + + + + | Glucose, | 132 (H)Comment: Testing | 65 - 99 mg/dL | EXTERNAL | | | Fasting | performed at [facility];[address] | | LAB | | | | [address];[place] | | | | | | [address] | | | | + + + + + + | BUN | 17Comment: Testing | 8 - 25 mg/dL | EXTERNAL | | | | performed at [facility];[address] | | LAB | | | | [address];[place] | | | | | | [address] | | | | + + + + + + | Creatinine | 0.82Comment: Testing | 0.70 - 1.30 | EXTERNAL | | | | performed at [facility];[address] | mg/dL | LAB | | | | [address];[place] | | | | | | [address] | | | | + + + + + + | BUN/Creatin | 20Comment: Testing | | EXTERNAL | | | ine Ratio | performed at [facility];[address] | | LAB | | | | [address];[place] | | | | | | [address] | | | | + + + + + + | Calcium | 8.3 (L)Comment: Testing | 8.5 - 10.2 | EXTERNAL | | | | performed at [facility];[address] | mg/dL | LAB | | | | [address];[place] | | | | | | [address] | | | | + + + + + + | Protein, | 8.4 (H)Comment: Testing | 6.3 - 8.2 g/dL | EXTERNAL | | | Total | performed at [facility];[address] | | LAB | | | | [address];[place] | | | | | | [address] | | | | + + + + + + | Albumin | 3.3 (L)Comment: Testing | 3.6 - 5.0 g/dL | EXTERNAL | | | | performed at [facility];[address] | | LAB | | | | [address];[place] | | | | | | [address] | | | | + + + + + + | Globulin | 5.1 (H)Comment: Testing | 1.3 - 4.9 g/dL | EXTERNAL | | | | performed at [facility];[address] | | LAB | | | | [address];[place] | | | | | | [address] | | | | + + + + + + | A/G Ratio | 0.7 (L)Comment: Testing | 1.0 - 2.4 | EXTERNAL | | | | performed at [facility];[address] | | LAB | | | | [address];[place] | | | | | | [address] | | | | + + + + + + | Bilirubin | 0.2Comment: Testing | 0.1 - 1.5 mg/dL | EXTERNAL | | | Total | performed at [facility];[address] | | LAB | | | | [address];[place] | | | | | | [address] | | | | + + + + + + | ALP, | 104Comment: Testing | 35 - 115 U/L | EXTERNAL | | | External | performed at [facility];[address] | | LAB | | | | [address];[place] | | | | | | [address] | | | | + + + + + + | AST | 16Comment: Testing | 10 - 45 U/L | EXTERNAL | | | | performed at [facility];[address] | | LAB | | | | [address];[place] | | | | | | [address] | | | | + + + + + + | ALT | 16Comment: Testing | 10 - 65 U/L | EXTERNAL | | | | performed at [facility];[address] | | LAB | | | | [address];[place] | | | | | | [address] | | | | + + + [...] | | | | | | at [facility];[address];[place] [address] | | | | + + + + + + | CK, Total | 42 (L)Comment: Testing | 55 - 400 U/L | EXTERNAL | | | | performed at [facility];[address] | | LAB | | | | [address];[place] | | | | | | [address] | | | | + + + [...] | | | | | performed at [facility];[address] | | | | | | [address];[place] | | | | | | [address] | | | | + + + + + + | aPTT, | 26Comment: Testing | 23 - 32 seconds | EXTERNAL | | | Patient | performed at [facility];[address] | | LAB | | | | [address];[place] | | | | | | [address] | | | | + + + + + + | CK-MB | <0.5 (L)Comment: Testing | 0.5 - 3.6 ng/mL | EXTERNAL | | | | performed at [facility];[address] | | LAB | | | | [address];[place] | | | | | | [address] | | | | + + + + + + | CK-MB Index | UNABLE TO | | EXTERNAL | | | | CALCULATEComment: | | LAB | | | | Testing performed at | | | | | | [facility];[address];[place] [address] | | | | + + + + + + + + | Specimen | + + | | + + + +---------+ + + | Performing | Address | City/State/Zipcode | Phone Number | | Organization | | | | + +---------+ + + | EXTERNAL LAB | | | | + +---------+ + + Sedimentation rate, automated (10/22/2014 3:20 AM PST) + + + + + + | Component | Value | Ref Range | Performed | Pathologist | | | | | At | Signature | + + + + + + | Sed Rate | 29 (H)Comment: Testing | 0 - 15 mm/Hr | EXTERNAL | | | | performed at [facility];[address] | | LAB | | | | [address];[place] | | | | | | [address] | | | | + + + + + + + + | Specimen | + + | Blood specimen | | (specimen) | + + + +---------+ + + | Performing | Address | City/State/Zipcode | Phone Number | | Organization | | | | + +---------+ + + | EXTERNAL LAB | | | | + +---------+ + + D-Dimer (10/22/2014 3:20 AM PST) + + + + + + | Component | Value | Ref Range | Performed | Pathologist | | | | | At | Signature | + + + + + + | D-DIMER, | 0.51 (H)Comment: D Dimer | 0.19 - 0.50 | EXTERNAL | | | MANUAL | results less than 0.50 | mg/L FEU | LAB | | | | mg/L FEU may rule out | | | | | | DVT and PE. However, | | | | | | all laboratory results | | | | | | should be interpreted in | | | | | | the context of all | | | | | | available clinical, | | | | | | radiologic and | | | | | | laboratory | | | | | | information.Testing | | | | | | performed at [facility];[address] | | | | | | [facility];[place], [place] | | | | | | [address] | | | | + + + + + + + + | Specimen | + + | Blood specimen | | (specimen) | + + + +---------+ + + | Performing | Address | City/State/Zipcode | Phone Number | | Organization | | | | + +---------+ + + | EXTERNAL LAB | | | | + +---------+ + + C-Reactive Protein (10/22/2014 3:20 AM PST) + + + + + + | Component | Value | Ref Range | Performed | Pathologist | | | | | At | Signature | + + + + + + | CRP | 0.5 (H)Comment: Testing | mg/dL | EXTERNAL | | | | performed at [facility];[address] | | LAB | | | | [address];[place] | | | | | | [address] | | | | + + + + + + + + | Specimen | + + | Blood specimen | | (specimen) | + + + +---------+ + + | Performing | Address | City/State/Zipcode | Phone Number | | Organization | | | | + +---------+ + + | EXTERNAL LAB | | | | + +---------+ + + Lactic Acid (10/22/2014 3:20 AM PST) + + + + + + | Component | Value | Ref Range | Performed | Pathologist | | | | | At | Signature | + + + + + + | Lactate | 1.7Comment: Testing | 0.4 - 2.0 | EXTERNAL | | | | performed at [facility];[address] | mmol/L | LAB | | | | [address];[place] | | | | | | [address] | | | | + + + + + + + + | Specimen | + + | Blood specimen | | (specimen) | + + + +---------+ + + | Performing | Address | City/State/Zipcode | Phone Number | | Organization | | | | + +---------+ + + | EXTERNAL LAB | | | | + +---------+ + + Culture, Blood (10/22/2014 3:20 AM PST) + + | Specimen | + + | Blood specimen | | (specimen) | + + + + + | Narrative | Performed At | + + + | Specimen Description BLOOD SPECIAL | EXTERNAL LAB | | REQUESTS LEFT HAND | | | Testing performed at [facility];[address];[place] [address] CULTURE | | | NO GROWTH | | | Testing performed at [facility], [address] [place] | | | [address] | | + + + + +---------+ + + | Performing | Address | City/State/Zipcode | Phone Number | | Organization | | | | + +---------+ + + | EXTERNAL LAB | | | | + +---------+ + + documented in this encounter Visit Diagnoses + + | Diagnosis | + + | Dyspnea Other dyspnea and respiratory abnormality | + + | Chest pain Chest pain, unspecified | + + | Chronic back pain Backache, unspecified | + + | COPD exacerbation (HCC) Obstructive chronic bronchitis with exacerbation | + + | Current smoker Tobacco use disorder | + + | Depression with anxiety Dysthymic disorder | + + | Productive cough Cough | + + | HIV (human immunodeficiency virus infection) (HCC) Asymptomatic human | | immunodeficiency virus (HIV) infection status | + + | Neurosyphilis in male Neurosyphilis, unspecified | + + | 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
--- OUTSIDE RECORDS SUMMARY | ~2020-06-05 | XMS | Encounter Summary ---
Demographics + + + | Address | [address] | | | [place] [address] | + + + | Home Phone [...] Team Providers + +------+ + | Care Nail Feeder Name | Role | Phone | + [...] | | | | | | Mailcode: [id number] | | | | | | [facility] | | | | | | [place], [place] | | | | | | [address] | | | | | | [phone] | | | +--------+ + + + [...]
--- OUTSIDE RECORDS SUMMARY | ~2020-06-05 | XMS | Clinical Summary ---
Demographics + + + | Address | [address] | | | [place] [address] | + + + | Home Phone [...] Author + + + | Author | [facility] | + + + | Organization | [facility] | + + + | Address | Unknown | + + + | Phone | Unavailable | + + + Support + + +---------+ + | Name | Relationship | Address | Phone | + + +---------+ + | Skyler Todd | ECON | Unknown | | + + +---------+ + Care Team Providers + +------+ + | Care Party Demonstrator Name | Role | Phone | + +------+ + | Jerome Young MD | PCP | | + +------+ + Source Comments ROMAN is fully live on both [facility] and [facility] Allergies + + + + + + | Active Allergy | Reactions | Severity | Noted | Comments | | | | | Date | | + + + + + + | Ciprofloxacin | Rash | Medium | 10//20 | | | | | | 10 | | + + + + + + Medications + + + +---------+------+------+-------+ | Medication | Sig | Dispensed | Refills | Star | End | Statu | | | | | | t | Date | s | | | | | | Date | | | + + + +---------+------+------+-------+ | FLUTICASONE | Inhale 2 Puffs two | | 0 | 10/2 | | Activ | | PROPIONATE (FLOVENT | times daily. | | | /20 | | e | | INHL) | | | | 10 | | | + + + +---------+------+------+-------+ | darunavir | Take 2 Tabs by mouth | 60 Tab | 11 | 10/2 | | Activ | | (PREZISTA) 400 mg | once daily with | | | 04/29 | | e | | Oral | breakfast. Take with | | | 10 | | | | TabletIndications: | food and Norvir | | | | | | | HIV (human | (ritonavir). | | | | | | | immunodeficiency | | | | | | | | virus infection) | | | | | | | | (HCC) | | | | | | | + + + +---------+------+------+-------+ | pravastatin 20 mg | Take 1 Tab by mouth | 30 Tab | 11 | 11/1 | | Activ | | Oral | once daily at | | | 20 | | e | | TabletIndications: | bedtime. | | | 10 | | | | Hyperlipidemia LDL | | | | | | | | goal < 100 | | | | | | | + + + +---------+------+------+-------+ | zolpidem 10 mg | Take 1 Tab by mouth | 14 Tab | 0 | / | | Activ | | Oral Tablet | once daily at | | | 11/29 | | e | | | bedtime as needed | | | 10 | | | | | for sleep. | | | | | | + + + +---------+------+------+-------+ | | Inhale 2 Puffs four | | 0 | | | Activ | | albuterol-ipratropiu | times daily as | | | | | e | | m (COMBIVENT) 18-103 | needed. | | | | | | | mcg/Actuation | | | | | | | | Inhalation Aerosol | | | | | | | + + + +---------+------+------+-------+ | Ritonavir (NORVIR) | Take 100 mg by mouth | 30 Tab | 11 | 02/2 | | Activ | | 100 mg Oral | once daily. Take | | | /20 | | e | | TabletIndications: | with food and | | | 11 | | | | HIV (human | Darunavir. | | | | | | | immunodeficiency | | | | | | | | virus infection) | | | | | | | | (HCC) | | | | | | | + + + +---------+------+------+-------+ | metoprolol | Take 1 Tab by mouth | 30 Tab | 11 | / | | Activ | | succinate 25 mg Oral | once daily. | | | 12/30 | | e | | Tablet Extended | | | | 11 | | | | Release 24 | | | | | | | | hrIndications: | | | | | | | | Tachycardia | | | | | | | + + + +---------+------+------+-------+ | LORazepam 0.5 mg | Take 0.5 mg by mouth | | 0 | 04/0 | | Activ | | Oral Tablet | every eight hours | | | 03/29 | | e | | | as needed. | | | 11 | | | + + + +---------+------+------+-------+ | | Take 1 Tab by mouth | 30 Tab | 0 | 04/2 | | Activ | | HYDROcodone-acetamin | every six hours as | | | 05/29 | | e | | ophen (VICODIN ES) | needed. Not to | | | 11 | | | | 7.5-750 mg Oral | exceed 5 tablets per | | | | | | | Tablet | any 24 hour period. | | | | | | | | (Not to exceed 4000 | | | | | | | | mg of acetaminophen | | | | | | | | from all products | | | | | | | | per 24 hour period.) | | | | | | + + + +---------+------+------+-------+ | ergocalciferol | Take 1 Cap by mouth | 4 Cap | 0 | 04/0 | | Activ | | 50,000 unit Oral | every seven days. | | | 07/30 | | e | | CapsuleIndications: | | | | 12 | | | | Vitamin d deficiency | | | | | | | + + + +---------+------+------+-------+ | | Take 1 Tab by mouth | 30 Tab | 5 | 11/1 | | Activ | | emtricitabine-tenofo | once daily. | | | 02/27 | | e | | vir (TRUVADA) | | | | 12 | | | | 200-300 mg Oral | | | | | | | | tablet | | | | | | | + + + +---------+------+------+-------+ Active Problems + + + | Problem | Noted Date | + + + | COPD (chronic obstructive pulmonary disease) with chronic | 03/27/2011 | | bronchitis | | + + + | Hyperlipidemia LDL goal < 100 | 02/12/2011 | + + + | Tachycardia | 02/12/2011 | + + + | Tobacco use disorder | 02/12/2011 | + + + | LAURYN (obstructive sleep apnea) | 02/04/2011 | + + + + + | Overview: sleep study [facility] | + + + + + | Anxiety state | 01/01/2011 | + + + + + | Overview: ICD10 | + + + + + | Hair loss | 09/20/2010 | + + + | Herpes zoster | 09/04/2010 | + + + + + | Overview: ICD10 | + + +--------+ + | Asthma | 09/04/2010 | +--------+ + + + | Overview: ICD10 | + + + + + | Hip pain, bilateral | 09/04/2010 | + + + | HIV (human immunodeficiency virus infection) | | + + + | 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 | | + + + + + | Overview: treated | | ICD10 | + + + +---+ | Hearing loss in right ear | | + +---+ Resolved Problems + + + + | Problem | Noted | Resolved | | | Date | Date | + + + + | Intrinsic asthma | 09/20/20 | | | | 10 | 1 | + + + + + + | Overview: ICD10 | + + Immunizations + + + + | Name | Administration Dates | Next Due | + + + + | HepA-Adult | 02/12/2011, 09/20/2010 | | + + + + | Influenza, split | 09/04/2010 | | + + + + | Pneumococcal 23 | 09/04/2010 | | + + + + | Tdap | 09/20/2010 | | + + + + Family History + +------+---------+ + | Relation | Name | Status | Comments | + +------+---------+ + | Father | | Unknown | | + +------+---------+ + | Mother | | Unknown | | + +------+---------+ + Social History + + + +--------+------+ [...] recent travel history available. | + + Last Filed Vital Signs + + + [...] + + + | Oxygen Saturation | 99% | 09/20/2010 10:36 AM | | | | | PST [...] | | + + + + + Plan of Treatment + + + + + | Health Maintenance | Due Date | Last Done | Comments | + + + + + | Pneumococcal | | 09/04/2010 | | | vaccination (2 of 3 | 1 | | | | - PCV13) | | | | + + + + + | Cholesterol | | 01/21/2012, 01/10/2011, | | | screening | 3 | 09/04/2010 | | + + + + + | VITAMIN D MONITORING | | 01/21/2012, 01/11/2011, | | | | 3 | 09/04/2010 | | + + + + + | Influenza (Flu) | | | | | vaccination (#1) | 9 | | | + + + + + | TB SCREENING | Completed | 11/22/2011 | | | (PPD/TST,QUANTIFERON | | | | | ) | | | | + + + + + Results Not on filefrom Last 3 Months Insurance + +--------+ +--------+ + +------+ | Payer | Benefi | Subscriber | Effect | Phone | Address | Type | | | t Plan | ID | chuy | | | | | | / | | Dates | | | | | | Group | | | | | | + +--------+ +--------+ + +------+ | CAREASSIST | CARE | xxxx | Effect | [phone] | ATTN:TPA | POS | | | ASSIST | | chuy | 4 | [address] | | | | | | for | | [address] [address] | | | | | | all | | [place], | | | | | | dates | | [place] [address] | | + +--------+ +--------+ + +------+ + +--------+ +--------+ + + | Guarantor Name | Accoun | Relation to | Date | Phone | Billing Address | | | t Type | Patient | of | | | | | | | | | | + +--------+ +--------+ + + | Pavan Anderson | Person | Self [birth year] | [address] | | [place] | al/Fam | | 1965 | [phone] | [place] | | | [place] | | | [address] (Home) | [id number] | + +--------+ +--------+ + + Advance Directives + + + + + | Type | Date Recorded | Patient | Explanation | | | | Fnp | | + + + + + | Advance | | | | | Directives and | | | | | Living Will | | | | + + + + + | Power of | | | | | Data Reporting Analyst | | | | + + + + +
--- OUTSIDE RECORDS SUMMARY | ~2020-06-05 | XMS | Encounter Summary ---
Demographics + + + | Address | [address] | | | [place] [address] | + + + | Home Phone [...] Team Providers + +------+ + | Care Barrel Polisher Inside Name | Role | Phone | + [...] | | | [address] | [facility], | | | | | Mailcode: [id number] | [place] [address] | | | | | [facility] | [phone] | | | | | [place], [place] | | | | | | [address] | | | | | | [phone] | | | +--------+--------+ + + + [...]
--- OUTSIDE RECORDS SUMMARY | ~2020-06-05 | XMS | Encounter Summary ---
Demographics + + + | Address | [address] | | | [place] [address] | + + + | Home Phone [...] Author + + + | Author | [facility] | + + + | Organization | [facility] | + + + | Address | Unknown | + + + | Phone | Unavailable | + + + Support + + +---------+ + | Name | Relationship | Address | Phone | + + +---------+ + | Skyler Todd | ECON | Unknown | | + + +---------+ + Care Team Providers + +------+ + | Care Entry Level Project Engineer Name | Role | Phone | [...] Draw | | 2010 | | at [facility] | [address] | | | | | [address] | [facility], | | | | | [address] [facility] | [place] [address] | | | | | [address], [address] [place] [address] | [phone] | | | | | [place], [place] | | | | | | [address] | | | | | | [phone] | | | +--------+ + + + [...]
--- OUTSIDE RECORDS SUMMARY | ~2020-06-05 | XMS | Encounter Summary ---
Demographics + + + | Address | [address] | | | [place] [address] | + + + | Home Phone | | + + + | Preferred Language | Unknown | + + + | Marital Status | Single | + + + | Christianity Affiliation | Unknown | + + + | Race | Unknown | + + + | Ethnic Group | Unknown | + + + Author + + + | Author | [facility] | | | and [place] | + + + | Organization | [facility] | | | and [...] Team Providers + +------+ + | Care Handcrew Foreman Name | Role | Phone | + +------+ + PCP | Unavailable | + +------+ + Encounter Details +--------+ + + + + | Date | Type | Department | Care Team | Description | +--------+ + + + + | 09/16/ | [facility] | [facility] | Ralph Carrion | | | 2009 | Encounter | [facility] | [address] | | | | | CENTER [address] | [place] | | | | | [place] | [place] [address] | | | | | [address] | [phone] | | | | | [phone] | | | +--------+ + + + [...]
--- OUTSIDE RECORDS SUMMARY | ~2020-06-05 | XMS | Encounter Summary ---
Demographics + + + | Address | [address] | | | [place] [address] | + + + | Home Phone [...] Team Providers + +------+ + | Care Pilot Name | Role | Phone | + [...] | Required | | immunodefici | [address] | [address] [facility] | | | | | ency virus | [address] | Eben Valles | | | | | (HIV) | Jaleesa Lazcano, | [place], | | | | | disease | [place] [address] | [place] | | | | | (HCC) | Phone: | [phone] | | | | | | [phone] | Phone: | | | | | | Fax: | [phone] | | | | | | [phone] | Fax: | | | | | | | [phone] | +--------+ + + + + + Encounter Details +--------+---------+ + + + | Date | Type | Department | Care Team | Description | +--------+---------+ + + + | 01/01/ | Office | Internal Medicine | Faustina Henao MD | HIV (human | | 2010 | Visit | [facility] | [address] [facility] | immunodeficiency | | | | [address] | [place], | virus infection) | | | | Mailcode: [id number] | [place] [address] | (HCC) (Primary Dx); | | | | [facility] | [phone] | Unspecified asthma; | | | | [place], [place] | | Insomnia; Anxiety | | | | [address] | | state, unspecified; | | | | [phone] | | Hyperlipidemia LDL | | | | | | goal < 100; Vitamin | | | | | | D deficiency; | | | | | | Tachycardia | +--------+---------+ + + + Social History [...] + + + | Blood Pressure | 130/86 | 01/01/2011 10:35 AM | | | | | PST | | + + + + + | Pulse | 120 | 01/01/2011 10:35 AM | | | | | PST | | + + + + + | Temperature | 36.8 C (98.3 F) | 01/01/2011 10:35 AM | | | | | PST [...] + + + + | Weight | 97.8 kg (215 lb 11.2 | 01/01/2011 10:35 AM | | | | oz) | PST | | + + + + + | Height | 174.6 cm (5' 8.75") | 01/01/2011 10:35 AM | | | | | PST | | + + + + + | Body Mass Index | 32.09 | 01/01/2011 10:35 AM | | | | | PST | | + + + + + documented in this encounter Progress Notes Faustina Henao MD - 01/01/2011 12:26 PM PSTFormatting of this note might be different from t domenica original. Internal Medicine Clinic/HIV Clinic Patient Active Problem List Diagnoses Code HIV (human immunodeficiency virus infection) V08AF HPV-genital warts 078.19BU Hearing loss in right ear 389.9CV Herpes zoster without mention of complication 053.9 Unspecified asthma 493.90 Hip pain, bilateral 719.45T Hair loss 704.00K Anxiety state, unspecified 300.00 Active Medications as of 01/01/2011: clonazepam 1 mg Oral Tablet Take 1 [...] INHL) Inhale 2 Puffs two times daily. pravastatin 20 mg Oral Tablet Take 1 Tab by mouth once daily at bedtime. SULFAMETHOXAZOLE/TRIMETHOPRIM (BACTRIM DS ORAL) Take 1 Tab by mouth once daily. zolpidem 10 mg Oral Tablet Take 1 Tab by mouth once daily at bedtime as needed for sleep. albuterol-ipratropium (COMBIVENT) 18-103 mcg/Actuation Inhalation Aerosol Inhale 2 Puffs fo ur times daily as needed. HYDROcodone-acetaminophen (VICODIN ES) 7.5-750 mg Oral Tablet Take 1 Tab by mouth every six hours as needed. Not to exceed 5 tablets per any 24 hour period. (Not to exceed 4000 mg of acetaminophen from all products per 24 hour period.) Ritonavir (NORVIR) 100 mg Oral Tablet Take 100 mg by mouth once daily. Take with food and D arunavir. metoprolol succinate 25 mg Oral Tablet Extended Release 24 hr Take 1 Tab by mouth once mac y. Chief Complaint Patient presents with Follow-up visit History of Present Illness: Pavan is a 45 y.o. male with history of above who presents fo r follow up. No past encounter found with . Pavan presents with complaints of poor sleep pattern. He has both difficulty falling asle ep as well as awakening 2-3 times during the night. Pvaan states he has to get up to urina te. He drinks fluids right up until bed time. He has new upper dentures and was told to ke ep them "moist." We discussed need to diminish fluid intake after 6 pm. Additionally, lucia marin uses his computor and TV right up until bedtime. Discussed need to turn off all electr onics at least 60 minutes before desired bedtime. Discussed importance of bed time ritual a nd no caffeine after 12 noon. Nish states he does not drink ETOh and denies street drug use. Nish was started on pravastatin at last visit due to his elevated lipids. He continues to g ain weight. He remains fairly sedentary. He is also not mindful of diet. He continues to smoke 1 ppd. Nish is also on weekly vitamin d replacement. He will be due for 2nd hep A vac cine in March. Other immunizations are up to date. Nish was noted to be tachycardic again today. This is a trend over the past 3 visits. He s tates this has been noted since childhood. He underwent an outside EKG and ultrasound last month when seen in an outside ED for CAP. We did not receive outside records regarding this visit and evaluation. Nish has no known history of congenital heart disease. He denies pal patations or syncope. He has had prior meth use but denies any recent use. Pavan has missed 0 doses of his antiretroviral therapy during the past 4 weeks. He is tole rating this regimen well. He is due for restaging labs today. Pavan denies any recent acute illnesses. He denies fevers, chills, night sweats, headache , change in vision, odynophagia, cough, shortness of breath, chest pain, abdominal pain, stephan sea, vomiting, diarrhea, peripheral paresthesias, weight loss or rashes. PHQ-9 total score: Review of Systems: As above, all other systems are negative. Reviewed social and family history and changes were updated in Epic. Physical Examination: General: He is an alert, overweight man [...] auscultation bilaterally with normal respiratory effort. Cardiac: Tachy regular rhythm. No murmur, gallop auscultated. Abdomen: Nondistended, normal active bowel sounds. Soft, nontender. No hepatosplenomegaly or masses palpated. Extremities: No clubbing or edema. Neurologic: Alert and oriented x3. Normal gait. Labs: Lab Results Component Value Date [id number] 156* 09/04/2010 [id number] 9.0* 09/04/2010 HIVPCR 54 09/04/2010 Lab Results Component Value Date RPR Non-Reactive 09/04/2010 Lab Results Component Value Date CHOL 245 09/04/2010 LDL 142 09/04/2010 HDL 28 09/04/2010 TRI 406 09/04/2010 Lab Results Component Value Date [id number] 31 09/04/2010 Last CBC, CMP reviewed with patient. Assessment and Plan: V08AF HIV (human immunodeficiency virus infection) (primary encounter diagnosis) Plan: Patient remains stable on current antiviral [...] need of prophylactic therapy at this time. Ritonavir (NORVIR) 100 mg Oral Tablet, CBC, WITH DIFFERENTIAL, COMPLETE METABOLIC SET (NA,K,CL,CO2,BUN,CREAT,GLUC,CA,AST,ALT,BILI TOTAL,ALK PHOS,ALB,PROT TOTAL), CD4 (T CELL), BLOOD, HIV QUANTITATIVE PCR, PLASMA, RPR SERUM 493.90 Unspecified asthma Plan: Lungs clear today on current regimen 780.52A Insomnia Plan: Discussed decreasing fluids and electronics in the evening. Bedtime ritual. Increas ed aerobic activity during the day. No caffeine after 12 noon. 272.4CV Hyperlipidemia LDL goal < 100 Plan: Started pravastatin in September LIPID SET (TRIG, T CHOL, HDL, CALC LDL) 268.9G Vitamin D deficiency Plan: on replacement VITAMIN D, 25-HYDROXY, SERUM 785.0H Tachycardia Plan: Appears to be a sinus tach. Unclear etiology. Will check EKG and start low dose met oprolol. metoprolol succinate 25 mg Oral Tablet Extended Release 24 hr, 12 LEAD ECG I asked patient during visit to return to clinic in 3 months for routine follow up, sooner if acute issue arises. FAUSTINA NAVARRO MD document ed in this encounter Plan of Treatment + +------+--------+ + + | Name | Type | Priori | Associated Diagnoses | Order Schedule | | | | ty | | | + +------+--------+ + + | 12 LEAD ECG | ECG | Routin | Tachycardia | Ordered: 01/01/2011 | | | | e | | | + +------+--------+ + + documented as of this encounter Visit Diagnoses + + | Diagnosis | + + | HIV (human immunodeficiency virus infection) (HCC) - Primary Asymptomatic human | | immunodeficiency virus (HIV) infection status | + + | Unspecified asthma(493.90) Unspecified asthma | + + | Insomnia Insomnia, unspecified | + + | Anxiety state, unspecified | + + | Hyperlipidemia LDL goal < 100 Other and unspecified hyperlipidemia | + + | Vitamin d deficiency Unspecified vitamin D deficiency | + + | Tachycardia Tachycardia, unspecified | + + documented in this encounter
--- OUTSIDE RECORDS SUMMARY | ~2020-06-05 | XMS | Encounter Summary ---
Demographics + + + | Address | [address] | | | [place] [address] | + + + | Home Phone [...] + + + | Author | [facility] | | | and [place] | + + + | Organization | [facility] | | | and [place] [...] Team Providers + +------+ + | Care Contracting Executive Name | Role | Phone | + +------+ + | Jerome Young MD | PCP | | + +------+ + Encounter Details +--------+ + + + + | Date | Type | Department | Care Team | Description | +--------+ + + + + | 04/19/ | Emergency | [facility] | Eze Aparicio MD | Conjunctivitis; | | 2015 | | MEDICAL CENTER | [address] | Nausea and vomiting; | | | | EMERGENCY CENTER | [place] [address] | Back pain, | | | | [address] | [phone] | unspecified location | | | | [place], [place] | | | | | | [address] | | | | | | [phone] | | | +--------+ + + + [...] Progress Notes Conversion Transaction, Provider Unknown - 04/19/2015 8:12 PM PDTFormatting of this note m ight be different from the original. Case Management by LANDY Bella at 04/19/152011 Author: LANDY Bella Service: (none) Author Type: Change Consultant Filed: 04/19/152012 Date of Service: 04/19/152011 Status: Signed Sign Builder Supervisor: LANDY Bella (Change Consultant) DOMINIC met with pt at his request to discuss housing needs. Pt states that he is homeless and indigent. [facility]. DOMINIC called [facility] to verify that pt will be accepted without ID and that he is ok to arrive outside of normal check-in hours. DOMINIC [employer] - charged to provider 1. Reanna Alfaro docume nted in this encounter ED Notes Conversion Transaction, Provider Unknown - 04/19/2015 6:07 PM PDTFormatting of this note m ight be different from the original. ED Notes by Steff Kay RN at 04/19/151806 Author: Steff Kay RN Service: (none) Author Type: Registered Nurse Filed: 04/19/151807 Date of Service: 04/19/151806 Status: Signed Sign Builder Supervisor: Steff Kay RN (Registered Nurse) Alcaine and fluorescein strips provided to dr aparicio. Steff Kay RN 04/19/151807 onver brett Transaction, Provider Unknown - 04/19/2015 4:46 PM PDT ED Notes by Terell Etienne RN at 04/19/151645 Author: Terell Etienne RN Service: (none) Author Type: Registered Nurse Filed: 04/19/151645 Date of Service: 04/19/151645 Status: Signed Sign Builder Supervisor: Terell Etienne RN (Registered Nurse) MD at bedside. Terell Etienne RN 04/19/151645 Eze Reddy MD - 04/19/2015 4:44 PM PDTFormatting of this note might be different from the origin al. ED Provider Notes by Eze Aparicio MD at 04/19/151643 Author: Eze Aparicio MD Service: (none) Author Type: Physician Filed: 04/19/152229 Date of Service: 04/19/151643 Status: Signed Sign Builder Supervisor: Eze Aparicio MD (Physician) [facility] Department of Emergency Medicine 4:44 PM History of Present Illness Patient Identification Slava Anderson is a 49 y.o. male. Patient information was obtained from patient. History/Exam limitations: none. Patient presented to the Emergency Department by: Car Chief Complaint Chief Complaint Patient presents with Heat Exposure Eye Drainage "there is stuff coming out of my eyes" Nausea The patient complains of fatigue. Onset of symptoms was about a week ago, with a worsening course since that time. The symptoms are described to be of moderate severity. The patient also complains of nausea, vomiting and "puss" coming out of eye. The patient describes the quality and location of the symptoms as the following: "I have exhaustion". Care prior to joana sullivan consisted of Zofran, Tramadol, and Cipro, with minimal relief. The pt states that on J , he was kicked out of his apartment and had to spend the next four or five days movi ng. The pt reports that the pt "exhausted himself". The pt reports that he was seen at [facility] two nights ago for fatigue, nausea and vomiting. The pt received Cipro, Tramadol and Zofran from [facility]. The pt indicates that he spent the night in the streets last night and then got a phone call this AM stating that his friend needed to come to the hospital so the pt picke d up the friend and took him to the hospital. On the drive here, the pt reports that he star leobardo vomiting so he decided to get checked out. Dr. Enriquez is who he sees for HIV. Past Medical History Diagnosis Date HIV (human immunodeficiency virus infection) ([facility]) Muscle spasms of neck Hyperlipidemia Cholelithiasis COPD (chronic obstructive pulmonary disease) ([facility]) Chronic mastoiditis Multiple joint pain 05/14/2013 Other [...] for shortness of breath 09/17/13 WANDA Cary emtricitabine-tenofovir (TRUVADA) 200-300 MG per [...] comments) Father adopted Review of Systems Constitutional: Yes fatigue No fever Ears: Yes "puss coming out" of eyes ENT: No blindness, no rhinitis, no sore throat Cardiovascular: No chest pain Respiratory: No shortness of breath, cough Gastrointestinal: Yes nausea and vomiting No abdominal pain, diarrhea, black or bloody stools Genitourinary: No dysuria, hematuria Musculoskeletal: No acute physical injury. Skin: No laceration or rash Neuro and psych: No head injury, seizure, headache Endocrine/Heme/Lymph: No easy bruising or bleeding. Physical Exam BP 105/85 | Pulse 109 | Temp(Src) 97.9 F (36.6 C) (Temporal) | Resp 22 | Wt 94.7 kg (20 8 lb 12.4 oz) | SpO2 97% Vital Sign interpretation: Tachycardic, tachypneic, otherwise WNL Pulse Oximetry interpretation: Normal General: Alert, in no apparent distress Eyes: Bilateral conjunctival erythema Non-icteric ENT: Normal external exam Neck: Supple Cardiovascular: Warm and well perfused Respiratory: No respiratory distress Abdomen: Mild epigastric tenderness Extremities: ZAMORA Back: Normal ROM Skin: Color normal Warm and dry No rash Neuro: Alert, no AMS No gross motor/sensory deficits Medical Decision Making and Emergency Department Course ED Department Course The pt presents to the ED c/o vomiting. On exam, the pt has bilateral conjunctival erythema and mild epigastric tenderness, benign exam. My DDx include but is not limited to dehydrati on, allergic conjunctivitis, infectious conjunctivitis, viral syndrome, electrolyte imbalanc e, bowel obstruction, gastritis, gastroenteritis, vs other. I will order XR acute abdominal series, CBC, CMP and lipase, and reevaluate the pt. 6:09 PM. Reviewed XR results which shows no evidence of obstruction or perforation. 6:19 PM. Reviewed lab results which shows atypical lymphocytes abs are 0.48, glucose is 114 , total protein is 8.4, A/G is 0.8 and lipase is 308. Labs unremarkable. 7:08 PM. Pt reevaluation. I discussed the lab and XR results with the pt. I will perform a fluorescein eye exam now, which showed no fluorescein uptake to suggest an ulcerative or inf iltrative infection. The pt is requesting a [place] before he leaves and is ready for discharg e. The pt understands and agrees with the plan. All questions and concerns addressed. ED Medication Administration from 04/19/2015 1522 to 04/19/2015 2230 Date/Time Order Dose Route Action Action by 04/19/20152012 sodium chloride (bolus) 0.9 % 1,000 mL 0 mL Intravenous Stopped Dieter Hollis RN 04/19/2015 180 sodium chloride (bolus) 0.9 % 1,000 mL 1,000 mL Intravenous New Bag Ottoniel Kay RN 04/19/2015 180 ondansetron (ZOFRAN) injection 8 mg 8 mg Intravenous Given Steff puentes RN 04/19/2015 1917 oxyCODONE-acetaminophen (PERCOCET) 5-325 MG per tablet 1 tablet 1 tablet Oral Given Terell Etienne RN Records Reviewed Old medical records. Nursing notes. Previous [facility] ED visits for unrelated complaints. Laboratory Evaluation Results Procedure Component Value Ref Range Date/Time CBC with differential [[id number]] (Abnormal) Collected: 04/19/15 174 Order Status: Completed Updated: 04/19/151818 Specimen Information: Blood WBC 6.05 3.80 - 11.00 K/uL RBC 5.23 4.20 - 5.70 M/uL HGB 14.9 13.2 - 17.0 g/dL HCT 44.3 39.0 - 50.0 % MCV 84.8 80.0 - 100.0 fl MCH 28.6 27.0 - 34.0 pg MCHC 33.7 32.0 - 35.5 g/dL RDW SD 43.3 37 - 53 fl PLT 180 150 - 400 K/uL MPV 8.5 fl DIFF TYPE MANUAL Neutrophils Manual 34 % Bands 1 % Lymphocytes Manual 53 % Atypical Lymphocytes Relative 8 % Monocytes Manual 2 % Eosinophils Manual 2 % Neutrophils Absolute 2.06 1.90 - 7.40 K/uL Bands Manual 0.06 0.00 - 0.20 K/uL Lymphocytes Absolute 3.21 1.00 - 3.90 K/uL Atypical Lymphocytes Absolute 0.48 (H) 0.00 K/uL Monocytes Absolute 0.12 0.00 - 0.80 K/uL Eosinophils Absolute 0.12 0.00 - 0.50 K/uL Platelet Estimate ADEQUATE MORPHOLOGY RBC AND PLT MORPHOLOGY APPEAR NORMAL Comprehensive metabolic panel [[id number]] (Abnormal) Collected: 04/19/151741 Order Status: Completed Updated: 04/19/151809 Specimen Information: Blood SODIUM 138 135 - 143 mmol/L POTASSIUM 3.6 3.5 - 4.9 mmol/L CHLORIDE 103 99 - 109 mmol/L CO2 26 23 - 32 mmol/L ANION GAP AGAP 13 5 - 20 mmol/L GLUCOSE 114 (H) 65 - 99 mg/dL BUN 21 8 - 25 mg/dL CREATININE 0.97 0.70 - 1.30 mg/dL BUN/CREAT 21 CALCIUM 8.7 8.5 - 10.5 mg/dL TOTAL PROTEIN 8.4 (H) 6.3 - 8.2 g/dL Albumin 3.6 3.6 - 5.0 g/dL GLOBULIN 4.8 1.3 - 4.9 g/dL A/G 0.8 (L) 1.0 - 2.4 TBIL 0.4 0.1 - 1.5 mg/dL ALK PHOS 101 35 - 115 U/L AST 24 10 - 45 U/L ALT 30 10 - 65 U/L EGFR >60 >60 mL/min/1.73m2 Lipase [[id number]] Collected: 04/19/151741 Order Status: Completed Updated: 04/19/151809 Specimen Information: Blood LIPASE 308 73 - 393 U/L I personally reviewed the lab results and they have been posted to the chart. Pertinent po sitive and negative findings have been addressed appropriately. Radiology and EKG Evaluation Imaging Results Acute Abdominal Series (Final result) Result time: 04/19/15 18:09:16 Final result by Rad Results In Melquiades (04/19/15 18:09:16) Impression: 1. No evidence of obstruction or perforation. Narrative: SLAVA ANDERSON 1965 XR ABDOMEN ACUTE SERIES 04/19/2015 5:58 PM INDICATION: Abdominal pain COMPARISON: CT, 08/18/13 TECHNIQUE: Abdominal series, 3 views, single AP view of the chest, 2 views of the abdomen FINDINGS: The cardiomediastinal contours are normal. The lungs are clear with no focal con solidation. No pneumothorax or pleural fluid. There is no free air. There are no air fluid levels. There are no dilated loops of bowel. There is no organomegaly. Bony structures are w ithin normal limits. ED Diagnoses Final diagnoses Conjunctivitis Nausea and vomiting Back pain, unspecified location Disposition: ED Disposition Orders Discharge Condition at discharge: Stable Follow-up Information Follow up With Details Comments Contact Info [facility] Emergency Department If symptoms worsen [address] [facility] [address] [facility] In 1 week For follow up [address] [facility] [address] Per Pt None Discharge Medications: Discharge Medication List as of 04/19/2015 8:06 PM START taking these medications Details trimethoprim-polymyxin b (POLYTRIM) ophthalmic solution Apply 2 drops to eye every 6 (six) hours., Starting 04/19/2015, Until 04/23/15, Print Procedures Additional Documentation Procedures Attending Note: Documentation assistance provided by Loan Hinton (Scribe). Information recorded by the scribe has been reviewed and validated by me. Manuel williamson with its contents. MD Eze Wilkinson MD 04/19/15 624 onversio n Transaction, Provider Unknown - 04/19/2015 4:43 PM PDTFormatting of this note might be di fferent from the original. ED Notes by Terell Etienne RN at 04/19/15 6921 Author: Terell Etienne RN Service: (none) Author Type: Registered Nurse Filed: 04/19/15 4106 Date of Service: 04/19/151642 Status: Signed Sign Builder Supervisor: Terell Etienne RN (Registered Nurse) Social work in with Pt. Terell Etienne RN 04/19/151642 onver brett Transaction, Provider Unknown - 04/19/2015 4:39 PM PDT ED Notes by Terell Etienne RN at 04/19/151638 Author: Terell Etienne RN Service: (none) Author Type: Registered Nurse Filed: 04/19/151640 Date of Service: 04/19/151638 Status: Signed Sign Builder Supervisor: Terell Etienne RN (Registered Nurse) Per pt report, Pt hurt his back yesterday moving. Pt states seen at [facility]. Pt states he sle pt on the street last night and was out in the sun. Pt complaint of drainage from both his e yes. Pt concerned about dehidration, nausea/emesis. Pt reports litany of other complaints. Terell Etienne RN 04/19/151640 docume nted in this encounter Plan of Treatment Not on filedocumented as of this encounter Procedures + +--------+ + + + | Procedure Name | Priori | Date/Time | Associated Diagnosis | Comments | | | ty | | | | + +--------+ + + + | XR ABDOMEN AP | Routin | 04/19/2015 | | Results for this | | UPRIGHT KUB AND PA | e | 5:58 PM | | procedure are in the | | CHEST | | PDT | | results section. | + +--------+ + + + | EXTERNAL LAB: CBC | Routin | 04/19/2015 | | Results for this | | | e | 5:42 PM | | procedure are in the | | | | PDT | | results section. | + +--------+ + + + | LIPASE | Routin | 04/19/2015 | | Results for this | | | e | 5:42 PM | | procedure are in the | | | | PDT | | results section. | + +--------+ + + + | COMPREHENSIVE | Routin | 04/19/2015 | | Results for this | | METABOLIC PANEL | e | 5:42 PM | | procedure are in the | | | | PDT | | results section. | + +--------+ + + + documented in this encounter Results XR Abd Supine and Upright w 1 Vw Chest (04/19/2015 5:58 PM PDT) + + | Specimen | + + | | + + + + + | Impressions | Performed At | + + + | 1. No evidence of obstruction or perforation. Electronically | | | signed by Aj Spence MD on 04/19/2015 6:09 PM | | + + + + + + | Narrative | Performed At | + + + | SLAVA ANDERSON 1965 XR ABDOMEN ACUTE SERIES 04/19/2015 5:58 | | | PM INDICATION: Abdominal pain COMPARISON: CT, 08/18/13 | | | TECHNIQUE: Abdominal series, 3 views, single AP view of the chest, 2 | | | views of the abdomen FINDINGS: The cardiomediastinal contours | | | are normal. The lungs are clear with no focal consolidation. No | | | pneumothorax or pleural fluid. There is no free air. There are no | | | air fluid levels. There are no dilated loops of bowel. There is no | | | organomegaly. Bony structures are within normal limits. | | + + + + + | Procedure Note | + + | Melquiades, Rad Conversion - 06/25/2019 3:36 AM PDT SLAVA ANDERSON1965XR ABDOMEN ACUTE | | SERIES04/19/2015 5:58 PM INDICATION: Abdominal pain COMPARISON: CT, 08/18/13 TECHNIQUE: | | Abdominal series, 3 views, single AP view of the chest, 2 views of the abdomen FINDINGS: | | The cardiomediastinal contours are normal. The lungs are clear with no focal | | consolidation. No pneumothorax or pleural fluid. There is no free air. There are no air | | fluid levels. There are no dilated loops of bowel. There is no organomegaly. Bony | | structures are within normal limits. IMPRESSION: 1. No evidence of obstruction or | | perforation. | | | |TECHNIQUE: Abdominal series, 3 views, single AP view of the chest, 2 views of the abdomen | | | |FINDINGS: The cardiomediastinal contours are normal. The lungs are clear with no focal con solidation. No pneumothorax or pleural fluid. There is no free air. There are no air fluid levels. There are no dilated loops of | |bowel. There is no organomegaly. | |Bony structures are within normal limits. | | | |IMPRESSION: | |1. No evidence of obstruction or perforation. | | | | | + + External Lab: [facility] (04/19/2015 5:42 PM PDT) + + + + + + | Component | Value | Ref Range | Performed | Pathologist | | | | | At | Signature | + + + + + + | WBC | 6.05Comment: Testing | 3.80 - 11.00 | EXTERNAL | | | | performed at [facility];[address] | K/uL | LAB | | | | [address];[place] | | | | | | [address] | | | | + + + + + + | Non- | 5.23Comment: Testing | 4.20 - 5.70 | EXTERNAL | | | Red Blood | performed at [facility];[address] | M/uL | LAB | | | Cells | [address];[place] | | | | | Counted | [address] | | | | + + + + + + | Hemoglobin | 14.9Comment: Testing | 13.2 - 17.0 | EXTERNAL | | | | performed at [facility];888 | g/dL | LAB | | | | [address];[place] | | | | | | [address] | | | | + + + + + + | Hematocrit, | 44.3Comment: Testing | 39.0 - 50.0 % | EXTERNAL | | | POC | performed at [facility];[address] | | LAB | | | | [address];[place] | | | | | | [address] | | | | + + + + + + | MCV | 84.8Comment: Testing | 80.0 - 100.0 fl | EXTERNAL | | | | performed at [facility];[address] | | LAB | | | | [address];[place] | | | | | | [address] | | | | + + + + + + | MCH | 28.6Comment: Testing | 27.0 - 34.0 pg | EXTERNAL | | | | performed at [facility];[address] | | LAB | | | | [address];[place] | | | | | | [address] | | | | + + + + + + | MCHC | 33.7Comment: Testing | 32.0 - 35.5 | EXTERNAL | | | | performed at [facility];888 | g/dL | LAB | | | | [address];[place] | | | | | | [address] | | | | + + + + + + | RDW-CV | 43.3Comment: Testing | 37 - 53 fl | EXTERNAL | | | | performed at [facility];[address] | | LAB | | | | [address];[place] | | | | | | [address] | | | | + + + + + + | Platelet | 180Comment: Testing | 150 - 400 K/uL | EXTERNAL | | | Count | performed at [facility];[address] | | LAB | | | Plasma | [address];[place] | | | | | | [address] | | | | + + + + + + | MPV | 8.5Comment: Testing | fl | EXTERNAL | | | | performed at [facility];[address] | | LAB | | | | [address];[place] | | | | | | [address] | | | | + + + + + + | Differentia | MANUALComment: Testing | | EXTERNAL | | | l Type | performed at [facility];[address] | | LAB | | | | [address];[place] | | | | | | [address] | | | | + + + + + + | Segmented | 34Comment: Testing | % | EXTERNAL | | | Neutrophils | performed at [facility];[address] | | LAB | | | Manual | [address];[place] | | | | | | [address] | | | | + + + + + + | % Bands | 1Comment: Testing | % | EXTERNAL | | | | performed at [facility];[address] | | LAB | | | | [address];[place] | | | | | | [address] | | | | + + + + + + | Lymphocytes | 53Comment: Testing | % | EXTERNAL | | | Manual | performed at [facility];[address] | | LAB | | | | [address];[place] | | | | | | [address] | | | | + + + + + + | % Atypical | 8Comment: Testing | % | EXTERNAL | | | Lymphocytes | performed at [facility];[address] | | LAB | | | | [address];[place] | | | | | | [address] | | | | + + + + + + | Monocytes | 2Comment: Testing | % | EXTERNAL | | | Manual | performed at [facility];[address] | | LAB | | | | [address];[place] | | | | | | [address] | | | | + + + + + + | Eosinophils | 2Comment: Testing | % | EXTERNAL | | | Manual | performed at [facility];[address] | | LAB | | | | [address];[place] | | | | | | [address] | | | | + + + + + + | Absolute | 2.06Comment: Testing | 1.90 - 7.40 | EXTERNAL | | | Neutrophils | performed at [facility];[address] | K/uL | LAB | | | | [address];[place] | | | | | | [address] | | | | + + + + + + | Bands | 0.06Comment: Testing | 0.00 - 0.20 | EXTERNAL | | | Manual | performed at [facility];[address] | K/uL | LAB | | | | [address];[place] | | | | | | [address] | | | | + + + + + + | Absolute | 3.21Comment: Testing | 1.00 - 3.90 | EXTERNAL | | | Lymphocytes | performed at [facility];[address] | K/uL | LAB | | | | [address];[place] | | | | | | [address] | | | | + + + + + + | Absolute | 0.48 (H)Comment: Testing | K/uL | EXTERNAL | | | Atypical | performed at [facility];[address] | | LAB | | | Lymphocytes | [address];[place] | | | | | | [address] | | | | + + + + + + | Absolute | 0.12Comment: Testing | 0.00 - 0.80 | EXTERNAL | | | Monocytes | performed at [facility];[address] | K/uL | LAB | | | | [address];[place] | | | | | | [address] | | | | + + + + + + | Absolute | 0.12Comment: Testing | 0.00 - 0.50 | EXTERNAL | | | Eosinophils | performed at [facility];[address] | K/uL | LAB | | | | [address];[place] | | | | | | [address] | | | | + + + + + + | Platelet | ADEQUATEComment: Testing | | EXTERNAL | | | Estimate | performed at [facility];[address] | | LAB | | | | [address];[place] | | | | | | [address] | | | | + + + + + + | RBC | RBC AND PLT MORPHOLOGY | | EXTERNAL | | | Morphology | APPEAR NORMALComment: | | LAB | | | | Testing performed at | | | | | | [facility];[address] [facility] | | | | | | [facility];[place] [address] | | | | + + + + + + + + | Specimen | + + | Blood specimen | | (specimen) | + + + +---------+ + + | Performing | Address | City/State/Zipcode | Phone Number | | Organization | | | | + +---------+ + + | EXTERNAL LAB | | | | + +---------+ + + Lipase (04/19/2015 5:42 PM PDT) + + + + + + | Component | Value | Ref Range | Performed | Pathologist | | | | | At | Signature | + + + + + + | Lipase | 308Comment: Testing | 73 - 393 U/L | EXTERNAL | | | | performed at [facility];[address] | | LAB | | | | [address] [facility];[place], [place] | | | | | | [address] | | | | + + + [...] + +---------+ + + Comprehensive Metabolic Panel (04/19/2015 5:42 PM PDT) + + + + + + | Component | Value | Ref Range | Performed | Pathologist | | | | | At | Signature | + + + + + + | Na | 138Comment: Testing | 135 - 143 | EXTERNAL | | | | performed at [facility];[address] | mmol/L | LAB | | | | [address];[place], [place] | | | | | | [address] | | | | + + + + + + | K | 3.6Comment: Testing | 3.5 - 4.9 | EXTERNAL | | | | performed at [facility];[address] | mmol/L | LAB | | | | [address];[place] | | | | | | [address] | | | | + + + + + + | Cl | 103Comment: Testing | 99 - 109 mmol/L | EXTERNAL | | | | performed at [facility];[address] | | LAB | | | | [address];[place] | | | | | | [address] | | | | + + + + + + | CO2 | 26Comment: Testing | 23 - 32 mmol/L | EXTERNAL | | | | performed at [facility];[address] | | LAB | | | | [address];[place] | | | | | | [address] | | | | + + + + + + | Anion Gap | 13Comment: Testing | 5 - 20 mmol/L | EXTERNAL | | | | performed at [facility];[address] | | LAB | | | | [address];[place] | | | | | | [address] | | | | + + + + + + | Glucose, | 114 (H)Comment: Testing | 65 - 99 mg/dL | EXTERNAL | | | Fasting | performed at [facility];[address] | | LAB | | | | [address];[place] | | | | | | [address] | | | | + + + + + + | BUN | 21Comment: Testing | 8 - 25 mg/dL | EXTERNAL | | | | performed at [facility];[address] | | LAB | | | | [address];[place] | | | | | | [address] | | | | + + + + + + | Creatinine | 0.97Comment: Testing | 0.70 - 1.30 | EXTERNAL | | | | performed at [facility];[address] | mg/dL | LAB | | | | [address];[place] | | | | | | [address] | | | | + + + + + + | BUN/Creatin | 21Comment: Testing | | EXTERNAL | | | ine Ratio | performed at [facility];[address] | | LAB | | | | [address];[place] | | | | | | [address] | | | | + + + + + + | Calcium | 8.7Comment: Testing | 8.5 - 10.5 | EXTERNAL | | | | performed at [facility];[address] | mg/dL | LAB | | | | [address];[place] | | | | | | [address] | | | | + + + + + + | Protein, | 8.4 (H)Comment: Testing | 6.3 - 8.2 g/dL | EXTERNAL | | | Total | performed at [facility];[address] | | LAB | | | | [address];[place] | | | | | | [address] | | | | + + + + + + | Albumin | 3.6Comment: Testing | 3.6 - 5.0 g/dL | EXTERNAL | | | | performed at [facility];[address] | | LAB | | | | [address];[place] | | | | | | [address] | | | | + + + + + + | Globulin | 4.8Comment: Testing | 1.3 - 4.9 g/dL | EXTERNAL | | | | performed at [facility];[address] | | LAB | | | | [address];[place] | | | | | | [address] | | | | + + + + + + | A/G Ratio | 0.8 (L)Comment: Testing | 1.0 - 2.4 | EXTERNAL | | | | performed at [facility];[address] | | LAB | | | | [address];[place] | | | | | | [address] | | | | + + + + + + | Bilirubin | 0.4Comment: Testing | 0.1 - 1.5 mg/dL | EXTERNAL | | | Total | performed at [facility];[address] | | LAB | | | | [address];[place] | | | | | | [address] | | | | + + + + + + | ALP, | 101Comment: Testing | 35 - 115 U/L | EXTERNAL | | | External | performed at [facility];[address] | | LAB | | | | [address];[place] | | | | | | [address] | | | | + + + + + + | AST | 24Comment: Testing | 10 - 45 U/L | EXTERNAL | | | | performed at [facility];[address] | | LAB | | | | [address];[place] | | | | | | [address] | | | | + + + + + + | ALT | 30Comment: Testing | 10 - 65 U/L | EXTERNAL | | | | performed at [facility];[address] | | LAB | | | | [address];[place] | | | | | | [address] | | | | + + + [...] | | | | | | at [facility];[address] [place] [address] | | | | | | [facility];[place] [address] | | | | + + + [...] + | Diagnosis | + + | Conjunctivitis Conjunctivitis, unspecified | + + | Nausea and vomiting Nausea with vomiting | + + | Back pain, unspecified location | + + documented in this encounter [...]
--- OUTSIDE RECORDS SUMMARY | ~2020-06-05 | XMS | Encounter Summary ---
Demographics + + + | Address | [address] | | | [place] [address] | + + + | Home Phone | | + + + | Preferred Language | Unknown | + + + | Marital Status | Single | + + + | Yazidi Affiliation | Unknown | + + + [...] Team Providers + +------+ + | Care Instrument Repair Specialist Name | Role | Phone | [...] | | Mak, 3rd floor | | ([facility]) | | | | [place], [place] | | | | | | [address] | | | | | | [phone] | | | +--------+------+ + + + [...] DEPARTMENT OF | [address] | [place] [address] | | | PATHOLOGY | [address] [...] [facility] | [address] | [place] [address] | | | PATHOLOGY | [address] [...] [facility] | [facility] | [place] [address] | REGIONAL | | [place] [address] | LABORATORY | + + + + + + + + | Performing | Address | City/State/Zipcode | Phone Number | | Organization | | | | + + + + + | [facility] | [address] | [place] [address] | | | LABORATORY | | | [...] Tucker | [facility]UCKER | | [place] [address] | REGIONAL | | [place] [address] | LABORATORY | + + + + + + + + | Performing | Address | City/State/Zipcode | Phone Number | | Organization | | | | + + + + + | [facility] | [address] | [place] [address] | | | LABORATORY | | | [...] [facility] ([address] [facility]) Tucker | [facility]UCKER | | [place] [address] | REGIONAL | | [place] [address] | LABORATORY | + + + + + + + + | Performing | Address | City/State/Zipcode | Phone Number | | Organization | | | | + + + + + | [facility] | [address] | [place] [address] | | | LABORATORY | | | [...] At | + + + | RLB ([employer] [facility]) Tucker | TUCKER | | [place] [address] | REGIONAL | | [place] [address] | LABORATORY | + + + + + + + + | Performing | Address | City/State/Zipcode | Phone Number | | Organization | | | | + + + + + | [facility] | [address] | [place] [address] | | | LABORATORY | | | [...] | 75 (H) | <31 mg/dL | [facility] | | | CHOLESTEROL | | | [...] | + + + + + | [facility] DEPARTMENT OF | [address] | [place] [address] | | | PATHOLOGY | [address] [...] [place], | | | | | | [place] [address] | | | | | | [phone] | | | | | | | | | | | | [email or web address], | | | | | | Loyda [...] [facility] | [address] | [place], [place] | | | [facility] | | [address] | | + + + + + [...] At | + + + | RLB ([employer] [facility]) Justin | TUCKER | | [place] [address] | REGIONAL | | [place] [address] | LABORATORY | + + + + + + + + | Performing | Address | City/State/Zipcode | Phone Number | | Organization | | | | + + + + + | [facility] | [address] | [place] [address] | | | LABORATORY | | | [...] + + + + | [facility] | [facility] | [place] [address] | | | GENETICS LABS | [address] | | | | | AVE. [...] DEPARTMENT OF | [address] | [place] [address] | | | PATHOLOGY | [address] [...] | | | DEPARTMENT | | | [place] | | | OF | | | [...] [facility] | [address] | [place] [address] | | | PATHOLOGY | [address] [...] [facility] | [address] | [place] [address] | | | PATHOLOGY | [address] | | | + + + + + documented in this encounter Visit Diagnoses + + | Diagnosis | + + | HIV (human immunodeficiency virus infection) (HCC) Asymptomatic human | | immunodeficiency virus (HIV) infection status | + + documented in this encounter"
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
--- OUTSIDE RECORDS SUMMARY | ~2020-06-05 | XMS | Encounter Summary ---
Demographics + + + | Address | [address] | | | [place] [address] | + + + | Home Phone | | + + + | Preferred Language | Unknown | + + + | Marital Status | Single | + + + | Shinto Affiliation | Unknown | + + + | Race | White | + + + | Ethnic Group | Not or | + + + Author + + + | Author | [facility] | + + + | Organization | [facility] | + + + | Address | Unknown | + + + | Phone | Unavailable | + + + Support + + +---------+ + | Name | Relationship | Address | Phone | + + +---------+ + | Skyler Todd | ECON | Unknown | | + + +---------+ + Care Team Providers + +------+ + | Care Toy Department Manager Name | Role | Phone | [...] | [address] | [address] [place], | down) | | | | Mailcode: [id number] | [place] [address] | | | | | [facility] | [phone] | | | | | [place], [place] | | | | | | [address] | | | | | | [phone] | | | +--------+ + + + [...]
--- OUTSIDE RECORDS SUMMARY | ~2020-06-05 | XMS | Encounter Summary ---
Demographics + + + | Address | [address] | | | [place] [address] | + + + | Home Phone [...] Team Providers + +------+ + | Care Encoding Clerk Name | Role | Phone | [...] | | [address] | [address] [place], | | | | | Mailcode: [id number] | [place] [address] | | | | | [facility] | [phone] | | | | | [place], [place] | | | | | | [address] | | | | | | [phone] | | | +--------+ + + + [...]
--- OUTSIDE RECORDS SUMMARY | ~2020-06-05 | XMS | Encounter Summary ---
Demographics + + + | Address | [address] | | | [place] [address] | + + + | Home Phone | | + + + | Preferred Language | Unknown | + + + | Marital Status | Single | + + + | Catholic Affiliation | Unknown | + + + | Race | Unknown | + + + | Ethnic Group | Unknown | + + + Author + + + | Author | [facility] | | | and [place] | + + + | Organization | [facility] | [...] Team Providers + +------+ + | Care V/Stol Landing Signal Officer Name | Role | Phone | + +------+ + | Jerome Young MD | PCP | | + +------+ + Encounter Details +--------+ + + + + | Date | Type | Department | Care Team | Description | +--------+ + + + + | 09/27/ | Orders Only | [facility] | Zita Enriquez, | | | 2013 | | INFECTIOUS DISEASE | MD | | | | | [address] | | | | | | [place], [place] | | | | | | [address] | | | | | | [phone] | | | +--------+ + + + [...] +--------+ + + + | CBC WITH MANUAL | Routin | 09/27/2014 | | Results for this | | DIFFERENTIAL | e | 2:30 PM | | procedure are in the | | | | PST | | results section. | + +--------+ + + + | HIV RNA, | Routin | 09/27/2014 | | Results for this | | QUANTITATIVE, PCR | e | 2:30 PM | | procedure are in the | | | | PST | | results section. | + +--------+ + + + | CD4 T CELL PANEL | Routin | 09/27/2014 | | Results for this | | | e | 2:30 PM | | procedure are in the | | | | PST | | results section. | + +--------+ + + + | COMPREHENSIVE | Routin | 09/27/2014 | | Results for this | | METABOLIC PANEL | e | 2:30 PM | | procedure are in the | | | | PST | | results section. | + +--------+ + + + documented in this encounter Results HIV RNA, quantitative, PCR (09/27/2014 2:30 PM PST) + + + + + + | Component | Value | Ref Range | Performed | Pathologist | | | | | At | Signature | + + + + + + | HIV-1 VIRAL | 2.4 (A)Comment: Testing | Log copies/mL | EXTERNAL | | | RESULT | performed at [facility], [address] | | LAB | | | (REF) | [facility] | | | | | | [place] [address] | | | | + + + + + + | HIV-1 VIRAL | 244 (A)Comment: Testing | Copies/mL | EXTERNAL | | | LOAD | performed at [facility], [address] | | LAB | | | RESULT | [place] | | | | | | [place] [address] | | | | + + + [...] | | | | | performed at [facility], [address] | | | | | | [facility] | | | | | | [place] [address] | | | | + + + + + + + + | Specimen | + + | | + + + +---------+ + + | Performing | Address | City/State/Zipcode | Phone Number | | Organization | | | | + +---------+ + + | EXTERNAL LAB | | | | + +---------+ + + CD4 T Cell Panel (09/27/2014 2:30 PM PST) + + + + + + | Component | Value | Ref Range | Performed | Pathologist | | | | | At | Signature | + + + + + + | Source | BLOODComment: Testing | | EXTERNAL | | | | performed by [facility], | | LAB | | | | [place] [address] | | | | + + + + + + | WBC | 7.6Comment: Testing | 3.8 - 11.0 K/uL | EXTERNAL | | | | performed at [facility] | | LAB | | | | [facility], | | | | | | [address], [place] | | | | | | [address] | | | | + + + + + + | Lymphocytes | 36.0Comment: Testing | 15.0 - 48.0 % | EXTERNAL | | | Manual | performed at [facility] | | LAB | | | | [facility], | | | | | | [address], [place] | | | | | | [address] | | | | + + + + + + | Absolute | 2.70Comment: Testing | 1.00 - 3.90 | EXTERNAL | | | Lymphocytes | performed at [facility] | K/uL | LAB | | | | [facility], | | | | | | [address], [place] | | | | | | [address] | | | | + + + + + + | CD4- | 13.2 (L)Comment: Testing | 30.0 - 65.0 % | EXTERNAL | | | | performed at [facility] | | LAB | | | | [facility], | | | | | | [address], [place] | | | | | | [address] | | | | + + + + + + | Absolute | 356 (L)Comment: Testing | 490 - 1400 /uL | EXTERNAL | | | CD4 ([place] | performed at [facility] | | LAB | | | T) Cells | [facility], | | | | | | [address], [place] | | | | | | [address] | | | | + + + + + + | CD4 NOTE 2 | SEE BELOWComment: NORMAL | | EXTERNAL | | | | RANGES BASED ON WHOLE | | LAB | | | | BLOOD.RESULT IS A SINGLE | | | | | | TEST PARAMETER WHICH | | | | | | MAY BE INFLUENCED BY | | | | | | TRANSPORTTIMES, THERAPY, | | | | | | AND ASSOCIATED | | | | | [...] | | | | | | DETERMINEDBY [place] | | | | | | [facility] | | | | | | [place]. IT HAS NOT BEEN | | | [...] | | | | | performed at [facility] | | | | | | [facility], | | | | | | [address], [place] | | | | | | [address] | | | | + + + + + + + + | Specimen | + + | Blood specimen | | (specimen) | + + + +---------+ + + | Performing | Address | City/State/Zipcode | Phone Number | | Organization | | | | + +---------+ + + | EXTERNAL LAB | | | | + +---------+ + + CBC with Manual Differential (09/27/2014 2:30 PM PST) + + + + + + | Component | Value | Ref Range | Performed | Pathologist | | | | | At | Signature | + + + + + + | WBC | 7.5 | 3.8 - 11.0 K/uL | EXTERNAL | | | | | | LAB | | + + + + + + | Non- | 5.31 | 4.20 - 5.70 | EXTERNAL | | | Red Blood | | M/uL | LAB | | | Cells | | | | | | Counted | | | | | + + + + + + | Hemoglobin | 13.5 | 13.2 - 17.0 | EXTERNAL | | | | | g/dL | LAB | | + + + + + + | Hematocrit, | 42.4 | 39.0 - 50.0 % | EXTERNAL | | | POC | | | LAB | | + + + + + + | MCV | 80.0 | 80.0 - 100.0 fl | EXTERNAL | | | | | | LAB | | + + + + + + | MCH | 25.4 (L) | 27.0 - 34.0 pg | EXTERNAL | | | | | | LAB | | + + + + + + | MCHC | 31.8 (L) | 32.0 - 35.5 | EXTERNAL | | | | | g/dL | LAB | | + + + + + + | RDW-CV | 47.3 | 37 - 53 fl | EXTERNAL | | | | | | LAB | | + + + + + + | Platelet | 258 | 150 - 400 K/uL | EXTERNAL | | | Count | | | LAB | | | Plasma | | | | | + + + + + + | MPV | 8.1 | fl | EXTERNAL | | | | | | LAB | | + + + + + + | Differentia | MANUAL | | EXTERNAL | | | l Type | | | LAB | | + + + + + + | Segmented | 52 | % | EXTERNAL | | | Neutrophils | | | LAB | | | Manual | | | | | + + + + + + | % Bands | 1 | % | EXTERNAL | | | | | | LAB | | + + + + + + | Lymphocytes | 35 | % | EXTERNAL | | | Manual | | | LAB | | + + + + + + | Monocytes | 9 | % | EXTERNAL | | | Manual | | | LAB | | + + + + + + | Eosinophils | 3 | % | EXTERNAL | | | Manual | | | LAB | | + + + + + + | Absolute | 3.9 | 1.9 - 7.4 K/uL | EXTERNAL | | | Neutrophils | | | LAB | | + + + + + + | Bands | 0.1 | 0 - 0.2 K/uL | EXTERNAL | | | Manual | | | LAB | | + + + + + + | Absolute | 2.6 | 1.0 - 3.9 K/uL | EXTERNAL | | | Lymphocytes | | | LAB | | + + + + + + | Absolute | 0.7 | 0 - 0.8 K/uL | EXTERNAL | | | Monocytes | | | LAB | | + + + + + + | Absolute | 0.2 | 0 - 0.5 K/uL | EXTERNAL | | | Eosinophils | | | LAB | | + + + + + + | RBC | RBC AND PLT MORPHOLOGY | | EXTERNAL | | | Morphology | APPEAR NORMAL | | LAB | | + + + + + + | RBC | Testing performed at | | EXTERNAL | | | Morphology | TCL;[address] | | LAB | | | | [address];[place] [address] | | | | + + + [...] + +---------+ + + Comprehensive Metabolic Panel (09/27/2014 2:30 PM PST) + + + + + + | Component | Value | Ref Range | Performed | Pathologist | | | | | At | Signature | + + + + + + | Na | 134 (L) | 135 - 143 | EXTERNAL | | | | | mmol/L | LAB | | + + + + + + | K | 4.2 | 3.5 - 4.9 | EXTERNAL | | | | | mmol/L | LAB | | + + + + + + | Cl | 98 (L) | 99 - 109 mmol/L | EXTERNAL | | | | | | LAB | | + + + + + + | CO2 | 29 | 23 - 32 mmol/L | EXTERNAL | | | | | | LAB | | + + + + + + | Anion Gap | 11 | 5 - 20 mmol/L | EXTERNAL | | | | | | LAB | | + + + + + + | Glucose, | 106 (H) | 65 - 99 mg/dL | EXTERNAL | | | Fasting | | | LAB | | + + + + + + | BUN | 19 | 8 - 25 mg/dL | EXTERNAL | | | | | | LAB | | + + + + + + | Creatinine | 0.66 (L) | 0.70 - 1.30 | EXTERNAL | | | | | mg/dL | LAB | | + + + + + + | BUN/Creatin | 29 | | EXTERNAL | | | ine Ratio | | | LAB | | + + + + + + | Calcium | 9.7 | 8.5 - 10.2 | EXTERNAL | | | | | mg/dL | LAB | | + + + + + + | Protein, | 8.4 (H) | 6.3 - 8.2 g/dL | EXTERNAL | | | Total | | | LAB | | + + + + + + | Albumin | 4.2 | 3.6 - 5.0 g/dL | EXTERNAL | | | | | | LAB | | + + + + + + | Globulin | 4.2 | 1.3 - 4.9 g/dL | EXTERNAL | | | | | | LAB | | + + + + + + | A/G Ratio | 1.0 | 1.0 - 2.4 | EXTERNAL | | | | | | LAB | | + + + + + + | Bilirubin | 0.4 | 0.1 - 1.5 mg/dL | EXTERNAL | | | Total | | | LAB | | + + + + + + | ALP, | 108 | 35 - 115 U/L | EXTERNAL | | | External | | | LAB | | + + + + + + | AST | 15 | 10 - 45 U/L | EXTERNAL | | | | | | LAB | | + + + + + + | ALT | 14 | 10 - 65 U/L | EXTERNAL | | | | | | LAB | | + + + + + + | Estimated | >60Comment: GFR <60: | mL/min/1.73m2 | EXTERNAL | | | GFR | CHRONIC KIDNEY DISEASE, | | LAB | | | | IF FOUND OVER A 3 MONTH | | | | | | PERIOD. GFR <15: KIDNEY | | | | | | FAILURE. FOR | | | | | | AMERICANS, MULTIPLY THE | | | | | | CALCULATED GFR BY | | | | | | 1.210.Testing performed | | | | | | at [facility];[address] | | | | | | [place] | | | | | | [address] | | | | + + + [...]
--- OUTSIDE RECORDS SUMMARY | ~2020-06-05 | XMS | Encounter Summary ---
Demographics + + + | Address | [address] | | | [place] [address] | + + + | Home Phone [...] Author + + + | Author | [facility] | + + + | Organization | [facility] | + + + | Address | Unknown | + + + | Phone | Unavailable | + + + Support + + +---------+ + | Name | Relationship | Address | Phone | + + +---------+ + | Skyler Todd | ECON | Unknown | | + + +---------+ + Care Team Providers + +------+ + | Care Stiff Leg Derrick Operator Name | Role | Phone | [...] Description | +--------+--------+ + + + | 11/08/ | Refill | Internal Medicine | Faustina Henao MD | Refill Request | | 2010 | | [facility] | [address] | | | | | [address] | [facility], | | | | | Mailcode: [id number] | [place] [address] | | | | | [facility] | [phone] | | | | | [place], [place] | | | | | | [address] | | | | | | [phone] | | | +--------+--------+ + + + [...]
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
--- OUTSIDE RECORDS SUMMARY | ~2020-06-05 | XMS | Encounter Summary ---
Demographics + + + | Address | [address] | | | [place] [address] | + + + | Home Phone [...] + + + | Author | [facility] | | | and [place] | + + + | Organization | [facility] | | | and [place] [...] Providers + +------+ + | Care Manager Etl Name | Role | Phone | + +------+ + | Jerome Young MD | PCP | | + +------+ + Encounter Details +--------+ + + + + | Date | Type | Department | Care Team | Description | +--------+ + + + + | 06/07/ | Orders Only | [facility] | Provider, | | | 2019 | | SYSTEM GENERIC OP | MD [address] | | | | | [address] | [place]. | | | | | [address] [place], [place] | [place] [address] | | | | | [address] | | | | | | [phone] | | | +--------+ + + + [...]
--- OUTSIDE RECORDS SUMMARY | ~2020-06-05 | XMS | Clinical Summary ---
Demographics + + + | Address | [address] | | | [place] [address] | + + + | Home Phone [...] Author + + + | Author | [facility] | + + [...] Team Providers + +------+ + | Care Refrigerated Company Driver Name | Role | Phone | + +------+ + | Jerome Young MD | PCP | | + +------+ + Source Comments ROMAN is fully live on both [facility] Ambulatory and [facility] InPatient.[facility] Allergies + + + + + + [...] + + + | Overview: sleep study [facility] | + + + + + | [...] | | | for | | [address] [address] | | | | | | all | | [place], | | | | | | dates | | [place] [address] | | + +--------+ +--------+ + +------+ [...] laverne | | | 1 (Home) | [address] | + +--------+ +--------+ + + Advance Directives + + + + + | Type | Date Recorded | Patient | Explanation | | | | Home Economist | | + + + + + | Advance | | | | | Directives and | | | | | Living Will | | | | + + + + + | Power of | | | | | Procurement Clerk | | | | + + + + +
--- OUTSIDE RECORDS SUMMARY | ~2020-06-05 | XMS | Encounter Summary ---
Demographics + + + | Address | [address] | | | [place] [address] | + + + | Home Phone | | + + + | Preferred Language | Unknown | + + + | Marital Status | Single | + + + | Sikh Affiliation | Unknown | + + + [...] Team Providers + +------+ + | Care Optometrist Owner Name | Role | Phone | + [...] | | | [address] | [facility], | | | | | Mailcode: [id number] | [place] [address] | | | | | [facility] | [phone] | | | | | [place], [place] | | | | | | [address] | | | | | | [phone] | | | +--------+--------+ + + + [...]
--- OUTSIDE RECORDS SUMMARY | ~2020-06-05 | XMS | Encounter Summary ---
Demographics + + + | Address | [address] | | | [place] [address] | + + + | Home Phone [...] Author + + + | Author | [facility] | + + + | Organization | [facility] | + + + | Address | Unknown | + + + | Phone | Unavailable | + + + Support + + +---------+ + | Name | Relationship | Address | Phone | + + +---------+ + | Skyler Todd | ECON | Unknown | | + + +---------+ + Care Team Providers + +------+ + | Care Steam And Power Superintendent Name | Role | Phone | + +------+ + | Faustina Henao MD | PCP | | + +------+ + Reason for Visit + + + | Reason | Comments | + + + | Follow-up visit | | + + + Encounter Details +--------+---------+ + + + | Date | Type | Department | Care Team | Description | +--------+---------+ + + + | 09/20/ | Office | Internal Medicine | Faustina Henao MD | HIV (human | | 2009 | Visit | [facility] [address] | [address] | immunodeficiency | | | | [address] | [place] [address]ras[place], | virus infection); | | | | Mailcode: [id number] | [place] [address] | Unspecified asthma; | | | | [facility] | [phone] | Hyperlipidemia LDL | | | | [facility] [place] | | goal < 100; Vitamin | | | | [address] | | D deficiency; Hip | | | | [phone] | | pain, bilateral; | | | | | | Hair loss; Intrinsic | | | | | | asthma, unspecified | +--------+---------+ + + + Social History [...] + + + | Blood Pressure | 104/82 | 09/20/2010 10:36 AM | | | | | PST | | + + + + + | Pulse | 108 | 09/20/2010 10:36 AM | | | | | PST | | + + + + + | Temperature | 36.7 C (98 F) | 09/20/2010 10:36 AM | | | [...] + + + + | Weight | 94.8 kg (209 lb) | 09/20/2010 10:36 AM | | | | | PST | | + + + + + | Height | - | - | | + + + + + | Body Mass Index | 30.86 | 09/04/2010 10:51 AM | | | | | PDT | | + + + + + documented in this encounter Patient Instructions Patient Instructions Faustina Henao MD - 09/20/2010 11:28 AM PSTRESUME BACTRIM OR SEPTRA ON E TABLET DAILY documented in this encounter Progress Notes Faustina Henao MD - 09/20/2010 2:35 PM PSTFormatting of this note might be different from t he original. Internal Medicine Clinic/HIV Clinic Patient Active Problem List Diagnoses Code HIV (human immunodeficiency virus infection) V08AF HPV-genital warts 078.11BP Hearing loss in right ear 389.9CV Herpes zoster without mention of complication 053.9 Unspecified asthma 493.90 Hip pain, bilateral 719.45T Hair loss 704.00K Intrinsic asthma, unspecified 493.10 Active Medications as of 09/20/2010: ALBUTEROL INHL Inhale 2 Puffs every four hours as needed. clonazepam 1 mg Oral Tablet Take 1 mg by mouth once daily as needed. darunavir (PREZISTA) 400 mg Oral Tablet Take 2 Tabs by mouth once daily with breakfast. Dwayne e with food and Norvir (ritonavir). emtricitabine-tenofovir (TRUVADA) 200-300 mg Oral Tablet Take 1 Tab by mouth once daily. FLUTICASONE PROPIONATE (FLOVENT INHL) Inhale 2 Puffs two times daily. hydrocodone-acetaminophen (VICODIN) 5-500 mg Oral Tablet Take 1 Tab by mouth every six hour s as needed. Not to exceed 8 tablets per any 24 hour period. (Not to exceed 4000 mg of aceta minophen from all products per 24 hour period.) ritonavir 100 mg Oral Capsule Take 100 mg by mouth two times daily. SULFAMETHOXAZOLE/TRIMETHOPRIM (BACTRIM DS ORAL) Take 1 Tab by mouth once daily. pravastatin 20 mg Oral Tablet Take 1 Tab by mouth once daily at bedtime. ergocalciferol 50,000 unit Oral Capsule Take 1 Cap by mouth every seven days. zolpidem 10 mg Oral Tablet Take 1 Tab by mouth once daily at bedtime as needed for sleep. Chief Complaint Patient presents with Follow-up visit History of Present Illness: Pavan is a 45 y.o. male with history of above who presents fo r follow up. He was seen for initial evaluation in the [facility] on 09/04/10. At last visit, I recommended Pavan simplify his regimen by going back to a once daily dosi ng of Truvada with boosted darunavir. His labs indicate he has excellent viral suppression on his current regimen, although his CD4 count is 156. We discussed that he should be on so me form of PCP prophylaxis. He states he has "a lot of Bactrim" at home. I have encouraged him to resume daily usage. Pavan states he was seen in an outside ED since last visit for an asthma exacerbation. He underwent a CXR with ? COPD changes. He was placed on TMP/SMX which he took for a week in addition to a prednisone taper. He continues to use his inhalers consisting of albuterol an d flovent. His breathing has improved. He has a chronic "smokers cough" which he states is nonproductive. He was referred to a side guider who has not yet seen. He continues to s moke about 1 ppd. We reviewed Nish's other labs today. We discussed that he has elevations in total, LDL and TG cholesterol levels. We discussed that his HIV, lipids and tobacco, male sex and age are all significant risk factors for CAD. We discussed that his PI therapy may be contributing to his dyslipidemia but that he likely has a familial form of hyperlipidemia. We discussed t hat his TGs could improve with modifications in diet. Would recommend he start a lipid lowe ring agent. His vitamin D level was found to be low normal and he may benefit from vitamin D supplementation. He has evidence of immunity to hep B but not hep A and I would recommend i mmunization today. He is also due for DTAP. Pavan has some other concerns today. He continues to complain of bilateral hip pain. He s tates this started after he became acutely ill with pneumonia with associated weight loss. He rapidly regained his lost weight after starting ARV therapy at which time his hip pain be shadia. He can have difficulty getting out of a car. The pain does limit his activity level. He has not undergone any imaging studies to date. He is not currently on any pain relievers . Finally, Pavan has noted hair loss in a male pattern. This has been more prominent over t he past few months. He does not know his FHx as he was adopted. He has adequate caloric inta ke. He has distant history of "thyroid disease." He has not noted any skin changes or temp erature intolerance. Pavan is otherwise stable. He denies any recent acute illnesses. He denies fevers, chill s, night sweats, headache, change in vision, odynophagia, cough, shortness of breath, abdomi nal pain, nausea, vomiting, diarrhea, peripheral paresthesias, weight loss or rashes. Review of Systems: As above, all other systems are negative. Reviewed social and family history. Physical Examination: BP 104/82 | Pulse 108 | Temp (Src) 36.7 C (98 F) (Oral) | Wt 94.802 kg (209 lb) | SpO2 99% General: He is an alert, overweight man in NAD. Skin: No rash or petechiae. Lymph nodes: No significant cervical, supraclavicular or axillary adenopathy appreciated. HEENT: EOMI. PERRL. Conjunctivae pink. Sclera anicteric. Oropharynx: no oral hairy leukop isaias, thrush or exudates. Mucous membranes are moist. Neck: Supple. Thyroid normal size, shape, and consistency. Back: No CVA or spinal tenderness. Lungs: Good inspiratory effort with end expiratory wheeze Cardiac: Regular rate and rhythm. Normal S1, S2, no murmur, gallop. Abdomen: Soft, nontender, and nondistended. No hepatosplenomegaly or masses. Normoactive b owel sounds. Extremities: No clubbing, cyanosis or edema. Neurologic: Alert and oriented x3. Normal gait. Labs: Lab Results Component Value Date [id number] 156* 09/04/2010 [id number] 9.0* 09/04/2010 HIVPCR 54 09/04/2010 Assessment and Plan: V08AF HIV (human immunodeficiency virus infection) Comment: Gentleman with HIV STage B3. He has well suppressed virus on current well tolerat ed regimen. Will continue to monitor for efficacy and toxicity. We discussed the importanc e of strict adherence in order to obtain maximal benefit from the medicatons and prevent the development of drug-resistant virus. I have strongly encouraged him to resume PCP prophyla xis especially given his need for inhaled and sometimes systemic corticosteroid therapy for his lung disease. Plan: STAFF TO GIVE: HEPATITIS A VIRUS VACCINE ADULT, STAFF TO GIVE: TDAP (ADACEL) F/u in 1 month 493.90 Unspecified asthma Comment: Recently completed antibiotics and steroid taper. On inhaler therapy. Discussed smoking cessation Plan: f/u with Pulmonary 272.4CV Hyperlipidemia LDL goal < 100 Comment: significant risk factors for CAD as outlined above. Recommend lipid lowering ther apy with statin. Discussed potential side effects including myositis and hepatitis . Plan: pravastatin 20 mg Oral Tablet 268.9G Vitamin D deficiency Comment: would recommend high dose supplements for 12 weeks Plan: ergocalciferol 50,000 unit Oral Capsule 719.45T Hip pain, bilateral Comment: possible osteoarthritis from obesity. Would r/o aseptic necrosis of hips Plan: X-RAY FEMUR 2 VIEWS BILATERAL 704.00K Hair loss Comment: likely male pattern baldness. Plan: check TSH with next blood draw 493.10 Intrinsic asthma, unspecified Comment: Some wheezing on exam today but no respiratory distress Plan: f/u with pulmonary FAUSTINA NAVARRO MD acia Hardin Lpn 09/2010 12:05 PM PSTHep A and Tdap inj's given per order. documented in this encounter Plan of Treatment Not on filedocumented as of this encounter Results X-RAY FEMUR 2 VIEWS [...] DAVON | | | | | | KEITHReviewer: JESSE | | | | | | James PRITCHARD STATUS FINAL | | | | | | / Dr. JESSE PRITCHARD | | | | + + + + + + + + | Specimen | + + | | + + + +---------+ + + | Performing | Address | City/State/Zipcode | Phone Number | | Organization | | | | + +---------+ + + | [facility] | | | | | [facility] | | | | + +---------+ + + documented in this encounter Visit Diagnoses + + | Diagnosis | + + | HIV (human immunodeficiency virus infection) Asymptomatic human immunodeficiency | | virus (HIV) infection status | + + | Unspecified asthma(493.90) Unspecified asthma | + + | Hyperlipidemia LDL goal < 100 Other and unspecified hyperlipidemia | + + | Vitamin d deficiency Unspecified vitamin D deficiency | + + | Hip pain, bilateral Pain in joint, pelvic region and thigh | + + | Hair loss Alopecia, unspecified | + + | Intrinsic asthma, unspecified | + + documented in this encounter
--- OUTSIDE RECORDS SUMMARY | ~2020-06-05 | XMS | Encounter Summary ---
Demographics + + + | Address | [address] | | | [place] [address] | + + + | Home Phone [...] + + + | Author | [facility] | + + + | Organization | [facility] | + + + | Address | Unknown | + + + | Phone | Unavailable | + + + Support + + +---------+ + | Name | Relationship | Address | Phone | + + +---------+ + | Skyler Todd | ECON | Unknown | | + + +---------+ + Care Team Providers + +------+ + | Care Supervisor Poultry Farm Name | Role | Phone | + [...] | | [address] | [address] [place], | | | | | Mailcode: [id number] | [place] [address] | | | | | [facility] | [phone] | | | | | [place], [place] | | | | | | [address] | | | | | | [phone] | | | +--------+--------+ + + + [...]
--- OUTSIDE RECORDS SUMMARY | ~2020-06-05 | XMS | Clinical Summary ---
Demographics + + + | Address | [address] | | | [place] [address] | + + + | Home Phone | | + + + | Preferred Language | Unknown | + + + | Marital Status | Single | + + + | Rastafari Affiliation | Unknown | + + + | Race | Unknown | + + + | Ethnic Group | Unknown | + + + Author + + + | Author | [facility] | | | and [place] | + + + | Organization | [facility] | | | and [...] Team Providers + +------+ + | Care Embroiderer Hand Name | Role | Phone | + +------+ + | Jerome Young MD | PCP | | + +------+ + Allergies + + + + + + | Active Allergy | Reactions | Severity | Noted | Comments | | | | | Date | | + + + + + + | Ciprofloxacin | | | 03/21/20 | | | | | | 10 | | + + + + + + Medications + + + +---------+------+------+-------+ | Medication | Sig | Dispensed | Refills | Star | End | Statu | | | | | | t | Date | s | | | | | | Date | | | + + + +---------+------+------+-------+ | darunavir | Take 600 mg by mouth | | 0 | 11/0 | | Activ | | (PREZISTA) 600 MG | Daily. | | | 3/20 | | e | | tablet | | | | 10 | | | + + + +---------+------+------+-------+ | | Take 200-300 mg by | | 0 | 11/0 | | Activ | | emtricitabine-tenofo | mouth Daily. | | | 3/20 | | e | | vir (TRUVADA) | | | | 10 | | | | 200-300 mg per | | | | | | | | tablet | | | | | | | + + + +---------+------+------+-------+ | ritonavir (NORVIR) | Take 100 mg by mouth | | 0 | 06/0 | | Activ | | 100 mg capsule | Daily. | | | 2/20 | | e | | | | | | 10 | | | + + + +---------+------+------+-------+ | augmented | Apply to both ears | | 0 | 11/0 | | Activ | | betamethasone | once daily | | | 3/20 | | e | | dipropionate | | | | 10 | | | | (DIPROLENE) 0.05 % | | | | | | | | ointment | | | | | | | + + + +---------+------+------+-------+ | fluticasone | 2 puffs inhaled | | 0 | 09/1 | | Activ | | (FLOVENT HFA) 110 | twice daily | | | 3/20 | | e | | mcg/puff inhaler | | | | 12 | | | + + + +---------+------+------+-------+ | pravastatin | Take 20 mg by mouth | | 0 | 09/1 | | Activ | | (PRAVACHOL) 20 mg | nightly. | | | 3/20 | | e | | tablet | | | | 12 | | | + + + +---------+------+------+-------+ | Albuterol Sulfate | AERS; 2 puffs | | 0 | 09/1 | | Activ | | (PROAIR HFA IN) | inhaled every 4 | | | 3/20 | | e | | | hours as needed for | | | 12 | | | | | shortness of breath | | | | | | + + + +---------+------+------+-------+ | metoprolol | Take 25 mg by mouth | | 0 | 09/1 | | Activ | | succinate | Daily. | | | 3/20 | | e | | (TOPROL-XL) 25 mg 24 | | | | 12 | | | | hr tablet | | | | | | | + + + +---------+------+------+-------+ | zolpidem (AMBIEN) | Take 10 mg by mouth | | 0 | 09/1 | | Activ | | 10 mg tablet | nightly as needed. | | | 3/20 | | e | | | | | | 12 | | | + + + +---------+------+------+-------+ | CALCIUM-VITAMIN D | TABS; 50,000 units | | 0 | 09/1 | | Activ | | PO | by mouth daily | | | 3/20 | | e | | | | | | 12 | | | + + + +---------+------+------+-------+ | CLOTRIMAZOLE | SOLN; use as | | 0 | 09/1 | | Activ | | | directed for left | | | 3/20 | | e | | | ear drops | | | 12 | | | + + + +---------+------+------+-------+ | ergocalciferol | Take 50,000 Units by | | 0 | 09/1 | | Activ | | (VITAMIN D-2) 50,000 | mouth Once a week. | | | 3/20 | | e | | units capsule | | | | 12 | | | + + + +---------+------+------+-------+ | pravastatin | Take 20 mg by mouth | | 0 | 09/1 | | Activ | | (PRAVACHOL) 20 mg | Daily. | | | 3/20 | | e | | tablet | | | | 12 | | | + + + +---------+------+------+-------+ | aspirin (ASPIRIN | Take 81 mg by mouth | | 0 | 09/1 | | Activ | | LOW DOSE) 81 MG | Daily. | | | 3/20 | | e | | tablet | | | | 12 | | | + + + +---------+------+------+-------+ | ALPRAZolam (XANAX) | Take 0.5 mg by mouth | | 0 | 09/1 | | Activ | | 0.5 mg tablet | Daily. | | | 3/20 | | e | | | | | | 12 | | | + + + +---------+------+------+-------+ | citalopram | Take 10 mg by mouth | | 0 | 09/1 | | Activ | | (CELEXA) 10 mg | Daily. | | | 3/20 | | e | | tablet | | | | 12 | | | + + + +---------+------+------+-------+ | | TABS; 1 to 2 daily | | 0 | 07/11 | | Activ | | Oxycodone-Acetaminop | | | | 01/27 | | e | | hen (PERCOCET PO) | | | | 12 | | | + + + +---------+------+------+-------+ | amoxicillin | three daily | | 0 | 07/11 | | Activ | | (AMOXIL) 500 MG | | | | 20 | | e | | capsule | | | | 12 | | | + + + +---------+------+------+-------+ | | Take by mouth. | | 0 | | | Activ | | elvitegravir-cobicis | | | | | | e | | shx-ythrtdakmudih-lf | | | | | | | | nofovir DF | | | | | | | | (STRIBILD) | | | | | | | | [phone] mg | | | | | | | | per tablet | | | | | | | + + + +---------+------+------+-------+ | | Inhale 1 puff into | | 0 | 04/2 | | Activ | | fluticasone-vilanter | the lungs daily. | | | 04/29 | | e | | ol (BREO ELLIPTA) | | | | 17 | | | | 200-25 mcg/puff | | | | | | | | inhaler | | | | | | | + + + +---------+------+------+-------+ | | Take 1-2 tablets by | | 0 | 09/1 | | Activ | | HYDROcodone-acetamin | mouth every 6 (six) | | | /20 | | e | | ophen (NORCO) 5-325 | hours as needed for | | | 15 | | | | mg per tablet | Pain. | | | | | | + + + +---------+------+------+-------+ | nystatin | Take 500,000 Units | | 0 | | | Activ | | (MYCOSTATIN) 100,000 | by mouth 3 (three) | | | | | e | | units/mL suspension | times daily. 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 | | | 17 | | | | DS) 800-160 mg per | | | | | | | | tablet | | | | | | | + + + +---------+------+------+-------+ | albuterol 90 | Inhale 2 puffs into | | 0 | 04/2 | | Activ | | mcg/puff inhaler | the lungs every 4 | | | 5/20 | | e | | | (four) hours as | | | 17 | | | | | needed for Wheezing. 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 | 06/07/2019 | + + + | Cellulitis and abscess of leg, except foot | 07/17/2017 | + + + | COPD (chronic obstructive pulmonary disease) | 07/17/2017 | + + + | Cellulitis of left finger | 03/03/2017 | + + + | Diarrhea of presumed infectious origin | 03/03/2017 | + + + | Precordial pain | 03/02/2017 | + + + | Abnormal CT of liver | 05/23/2015 | + + + | Acute pancreatitis | 05/23/2015 | + + + | Chest pain | 10/22/2014 | + + + | COPD exacerbation | 10/22/2014 | + + + | Acute bronchitis | 10/22/2014 | + + + | Hypomagnesemia | 08/21/2013 | + + + | Abdominal pain, right upper quadrant | 08/19/2013 | + + + | Nausea with vomiting | 08/19/2013 | + + + | Obesity, unspecified | 08/19/2013 | + + + | Chronic back pain | 08/13/2013 | + + + + + | Overview: Signed pain management contract 08/12/13, needs UDS | | - hydrocodone 7.5/325 tid, #84 - needs to be seen [id number] | + + + + + | Depression with anxiety | 05/14/2013 | + + + | Infection, FZGD-PIU-ONH | 05/14/2013 | + + + + + | Overview: Diagnosed 2006 - seeing Dr. Enriquez. | + + + + + | Multiple joint pain | 05/14/2013 | + + + | Myalgia | 05/14/2013 | + + + | CHRONIC MASTOIDITIS | 08/01/2010 | + + + | UNSPECIFIED CHRONIC SUPPURATIVE OTITIS MEDIA | 08/01/2010 | + + + + + | Overview: ICD-10 Record update | + + + +---+ | Current smoker | | + +---+ | OTITIS EXTERNA, ECZEMATOID | | + +---+ | HEARING LOSS, CONDUCTIVE | | + +---+ | OTITIS EXTERNA, CHRONIC | | + +---+ | Cough | | + +---+ | OTHER DYSPNEA AND RESPIRATORY ABNORMALITIES | | + +---+ | UNSPECIFIED CHRONIC BRONCHITIS | | + +---+ + + | Overview: ICD-10 Record update | + + + +---+ | SLEEP APNEA, OBSTRUCTIVE | | + +---+ Immunizations + + + + | Name | Administration Dates | Next Due | + + + + | PNEUMOCOCCAL | 08/20/2013 | | | POLYSACCHARIDE | | | | 23-VALENT (PPSV23) | | | + + + + Family History + + +------+ + | Medical History | Relation | Name | Comments | + + +------+ + | Other (see comment) | Father | | Other (see comments) - adopted | + + +------+ + | Other (see comment) | Mother | | Other (see comments) - adopted | + + +------+ + + +------+ + + | Relation | Name | Status | Comments | + +------+ + + | Father | | | | + +------+ + + | Father | | | | + +------+ + + | Mother | | | | + +------+ + + | Mother | | | | + +------+ + + Social History + +-------+ +--------+------+ [...] on file | | + + + Last Filed Vital Signs + [...] + + + + | Temperature | 37.1 C (98.7 F) | 07/22/2017 10:30 AM | | | [...] Height | 172.7 cm (5' 8") | 07/22/2017 10:30 AM | | | | | PDT | | + + + + + | Body Mass Index | 32.45 | 07/22/2017 10:30 AM | | | | | PDT | | + + + + + Plan of Treatment + + + + + | Health Maintenance | Due Date | Last | Comments | | | | Done | | + + + + + | Vaccine: Zoster (1 | | | | | of 2) | 6 | | | + + + + + | Vaccine: Influenza | | 07/23/20 | | | (#1) | 0 | 19, | | | | | 10/24/20 | | | | | 14, | | | | | 08/20/20 | | | | | 13, | | | | | Addition | | | | | al | | | | | history | | | | | exists | | + + + + + | Vaccine: | | 09/29/20 | | | Dtap/Tdap/Td (2 - | 2 | 12 | | | Td) | | | | + + + + + Results Not on filefrom Last 3 Months Additional Health Concerns + + + + + | Infection | Onset Date | Last Indicated | Resolved Time | + + + + + | Methicillin-resistan | 01/14/2014 | 01/14/2014 | | | t Staphylococcus | | | | | aureus | | | | + + + + + Insurance + +--------+ +--------+ +---------+--------+ | Payer | Benefi | Subscriber | Effect | Phone | Address | Type | | | t Plan | ID | chuy | | | | | | / | | Dates | | | | | | Group | | | | | | + +--------+ +--------+ +---------+--------+ | [employer] | [employer] | [id number] | 12/16/19 | [phone] | | Medica | | MEDICAID HMO | HEALTH | | 20-Pre | 1 | | id | | | MDCD | | sent | | | | | | [place] | | | | | | + +--------+ +--------+ +---------+--------+ + +--------+ +--------+ + + | Guarantor Name | Accoun | Relation to | Date | Phone | Billing Address | | | t Type | Patient | of | | | | | | | | | | + +--------+ +--------+ + + | Pavan Anderson | Person | Self [birth year] | [address] | | | al/Fam | | 1965 | [phone] | [place] | | | [place] | | | [address] (Home) | [phone] | + +--------+ +--------+ + + Advance Directives + + + + + | Type | Date Recorded | Patient | Explanation | | | | Actuarial Technician | | + + + + + | Power of | | | | | Master Data Analyst | | | | + + + + + | Advance | | | | | Directive | | | | + + + + +
--- OUTSIDE RECORDS SUMMARY | ~2020-06-05 | XMS | Encounter Summary ---
Demographics + + + | Address | [address] | | | [place] [address] | + + + | Home Phone | | + + + | Preferred Language | Unknown | + + + | Marital Status | Single | + + + | Tenriism Affiliation | Unknown | + + + | Race | Unknown | + + + | Ethnic Group | Unknown | + + + Author + + + | Author | [facility] | | | and [place] | + + + | Organization | [facility] | | | and [...] Team Providers + +------+ + | Care Global Cto Name | Role | Phone | + +------+ + | Jerome Young MD | PCP | | + +------+ + Encounter Details +--------+ + + + + | Date | Type | Department | Care Team | Description | +--------+ + + + + | 10/17/ | Orders Only | [facility] | Zita Enriquez, | | | 2013 | | [address] | MD | | | | | [place], [place] | | | | | | [address] | | | | | | [phone] | | | +--------+ + + + [...] | EXTERNAL LAB: [facility] | Routin | 10/17/2014 | | Results for this | | | e | 12:00 PM | | procedure are in the | | | | PST | | results section. | + +--------+ + + + | COMPREHENSIVE | Routin | 10/17/2014 | | Results for this | | METABOLIC PANEL | e | 12:00 PM | | procedure are in the | | | | PST | | results section. | + +--------+ + + + documented in this encounter Results External Lab: CBC (10/17/2014 12:00 PM PST) + + + + + + | Component | Value | Ref Range | Performed | Pathologist | | | | | At | Signature | + + + + + + | WBC | 5.1 | 3.8 - 11.0 K/uL | EXTERNAL | | | | | | LAB | | + + + + + + | Non- | 4.65 | 4.20 - 5.70 | EXTERNAL | | | Red Blood | | M/uL | LAB | | | Cells | | | | | | Counted | | | | | + + + + + + | Hemoglobin | 12.1 (L) | 13.2 - 17.0 | EXTERNAL | | | | | g/dL | LAB | | + + + + + + | Hematocrit, | 37.2 (L) | 39.0 - 50.0 % | EXTERNAL | | | POC | | | LAB | | + + + + + + | MCV | 80.0 | 80.0 - 100.0 fl | EXTERNAL | | | | | | LAB | | + + + + + + | MCH | 26.1 (L) | 27.0 - 34.0 pg | EXTERNAL | | | | | | LAB | | + + + + + + | MCHC | 32.7 | 32.0 - 35.5 | EXTERNAL | | | | | g/dL | LAB | | + + + + + + | RDW-CV | 47.3 | 37 - 53 fl | EXTERNAL | | | | | | LAB | | + + + + + + | Platelet | 207 | 150 - 400 K/uL | EXTERNAL | | | Count | | | LAB | | | Plasma | | | | | + + + + + + | MPV | 8.6 | fl | EXTERNAL | | | | | | LAB | | + + + + + + | Differentia | MANUAL | | EXTERNAL | | | l Type | | | LAB | | + + + + + + | Segmented | 30 | % | EXTERNAL | | | Neutrophils | | | LAB | | | Manual | | | | | + + + + + + | Lymphocytes | 59 | % | EXTERNAL | | | Manual | | | LAB | | + + + + + + | Monocytes | 8 | % | EXTERNAL | | | Manual | | | LAB | | + + + + + + | Eosinophils | 3 | % | EXTERNAL | | | Manual | | | LAB | | + + + + + + | Absolute | 1.5 (L) | 1.9 - 7.4 K/uL | EXTERNAL | | | Neutrophils | | | LAB | | + + + + + + | Absolute | 3.0 | 1.0 - 3.9 K/uL | EXTERNAL | | | Lymphocytes | | | LAB | | + + + + + + | Absolute | 0.4 | 0 - 0.8 K/uL | EXTERNAL [...] | | | Morphology | TCL;[address] | | LAB | | | | [address];[place] [address] | | | | + + + + + + + + | Specimen | + + | | + + + +---------+ + + | Performing | Address | City/State/Zipcode | Phone Number | | Organization | | | | + +---------+ + + | EXTERNAL LAB | | | | + +---------+ + + Comprehensive Metabolic Panel (10/17/2014 12:00 PM PST) + + + + + + | Component | Value | Ref Range | Performed | Pathologist | | | | | At | Signature | + + + + + + | Na | 135 | 135 - 143 | EXTERNAL | | | | | mmol/L | LAB | | + + + + + + | K | 4.3 | 3.5 - 4.9 | EXTERNAL | | | | | mmol/L | LAB | | + + + + + + | Cl | 99 | 99 - 109 mmol/L | EXTERNAL | | | | | | LAB | | + + + + + + | CO2 | 31 | 23 - 32 mmol/L | EXTERNAL | | | | | | LAB | | + + + + + + | Anion Gap | 9 | 5 - 20 mmol/L | EXTERNAL | | | | | | LAB | | + + + + + + | Glucose, | 98 | 65 - 99 mg/dL | EXTERNAL | | | Fasting | | | LAB | | + + + + + + | BUN | 19 | 8 - 25 mg/dL | EXTERNAL | | | | | | LAB | | + + + + + + | Creatinine | 0.70 | 0.70 - 1.30 | EXTERNAL | | | | | mg/dL | LAB | | + + + + + + | BUN/Creatin | 27 | | EXTERNAL | | | ine Ratio | | | LAB | | + + + + + + | Calcium | 9.0 | 8.5 - 10.2 | EXTERNAL | | | | | mg/dL | LAB | | + + + + + + | Protein, | 7.9 | 6.3 - 8.2 g/dL | EXTERNAL | | | Total | | | LAB | | + + + + + + | Albumin | 3.9 | 3.6 - 5.0 g/dL | EXTERNAL | | | | | | LAB | | + + + + + + | Globulin | 4.0 | 1.3 - 4.9 g/dL | EXTERNAL | | | | | | LAB | | + + + + + + | A/G Ratio | 1.0 | 1.0 - 2.4 | EXTERNAL | | | | | | LAB | | + + + + + + | Bilirubin | 0.3 | 0.1 - 1.5 mg/dL | EXTERNAL | | | Total | | | LAB | | + + + + + + | ALP, | 108 | 35 - 115 U/L | EXTERNAL | | | External | | | LAB | | + + + + + + | AST | 14 | 10 - 45 U/L | EXTERNAL | | | | | | LAB | | + + + + + + | ALT | 11 | 10 - 65 U/L | EXTERNAL [...] | | | | | | at [facility];[address] | | | | | | [facility];[place] | | | | | | [phone] | | | | + + + [...]
--- OUTSIDE RECORDS SUMMARY | ~2020-06-05 | XMS | Encounter Summary ---
[...] + + + | Author | [facility] | + + + | Organization | [facility] | + + + | Address | Unknown | + + + | Phone | Unavailable | + + + Support + + +---------+ + | Name | Relationship | Address | Phone | + + +---------+ + | Skyler Todd | ECON | Unknown | | + + +---------+ + Care Team Providers + +------+ + | Care Supervisor [employer]ricating Name | Role | Phone | + [...] [facility] [address] | [address] | Insurance | | | | [place] | Reena Carrasco [place], | Authorization | | | | Mailcode: [id number] | [place] [address] | | | | | [facility] | [phone] | | | | | [place], [place] | | | | | | [address] | | | | | | [phone] | | | +--------+ + + + [...]
--- OUTSIDE RECORDS SUMMARY | ~2020-06-05 | XMS | Encounter Summary ---
Demographics + + + | Address | [address] | | | [place] [address] | + + + | Home Phone | | + + + | Preferred Language | Unknown | + + + | Marital Status | Single | + + + | Yarsani Affiliation | Unknown | + + + [...] Team Providers + +------+ + | Care Milking Machine Operator Name | Role | Phone | + +------+ + | Jerome Young MD | PCP | | + +------+ + Encounter Details +--------+ + + + + | Date | Type | Department | Care Team | Description | +--------+ + + + + | 07/01/ | [id number] Consultant | Internal Medicine | Faustina Henao MD | | | 2010 | | Clinic at [facility] [address] | [address] | | | | | [place] | Reena Carrasco [place], | | | | | Mailcode: [id number] | [place] [address] | | | | | [facility] [place] | [phone] | | | | | [place], [place] | | | | | | [address] | | | | | | [phone] | | | +--------+ + + + [...]
--- OUTSIDE RECORDS SUMMARY | ~2020-06-05 | XMS | Encounter Summary ---
Demographics + + + | Address | [address] | | | [place] [address] | + + + | Home Phone | | + + + | Preferred Language | Unknown | + + + | Marital Status | Single | + + + | Amish Affiliation | Unknown | + + + | Race | Unknown | + + + | Ethnic Group | Unknown | + + + Author + + + | Author | [facility] | | | and [place] | + + + | Organization | [facility] | | | and [place] [...] Team Providers + +------+ + | Care Concrete Foreman Name | Role | Phone | + +------+ + | Jerome Young MD | PCP | | + +------+ + Encounter Details +--------+ + + + + | Date | Type | Department | Care Team | Description | +--------+ + + + + | 07/25/ | Orders Only | [facility] | Krishan Ceballos, | | | 2014 | | URGENT CARE XRAY | [address] | | | | | [address] | [place] | | | | | [place] | [place] | | | | | [address] | [address] | | | | | [phone] | | | +--------+ + + + [...] XR CHEST 2 VIEWS | Routin | 07/25/2015 | | Results for this | | | e | 3:15 PM | | procedure are in the | | | | PDT | | results section. | + +--------+ + + + documented in this encounter Results XR Chest 2 Vws (07/25/2015 3:15 PM PDT) + + | Specimen | + + | | + + + + + | Impressions | Performed At | + + + | No acute cardiopulmonary abnormality | | + + + + + + | Narrative | Performed At | + + + | [facility] 1965 49 years Male XR CHEST 2 VIEW FRONTAL | | | AND LATERAL 07/25/2015 3:15 PM INDICATION: Cough COMPARISON: | | | May 22, 2015 TECHNIQUE: Two view chest, PA and lateral views | | | FINDINGS: Lungs are clear. No pleural effusion, no | | | pneumothorax. Heart size is normal. Mediastinal contours are | | | normal. No acute osseous abnormality. | | + + + + + | Procedure Note | + + | Melquiades, Rad Conversion - 07/01/2019 11:48 PM PDT [facility] | | 1965 | | 49 years Male | | XR CHEST 2 VIEW FRONTAL AND LATERAL | | 07/25/2015 3:15 PM | | | | INDICATION: Cough | | | | COMPARISON: May 22, 2015 | | | | TECHNIQUE: Two view chest, PA and lateral views | | | | FINDINGS: | | | | Lungs are clear. | | | | No pleural effusion, no pneumothorax. | | | | Heart size is normal. Mediastinal contours are normal. | | | | No acute osseous abnormality. | | | | IMPRESSION: | | | | No acute cardiopulmonary abnormality | | | | | + + [...]
--- OUTSIDE RECORDS SUMMARY | ~2020-06-05 | XMS | Encounter Summary ---
Demographics + + + | Address | [address] | | | [place] [address] | + + + | Home Phone | | + + + | Preferred Language | Unknown | + + + | Marital Status | Single | + + + | Congregational Affiliation | Unknown | + + + | Race | White | + + + | Ethnic Group | Not or | + + + Author + + + | Author | [facility] | + + + | Organization | [facility] | + + + | Address | Unknown | + + + | Phone | Unavailable | + + + Support + + +---------+ + | Name | Relationship | Address | Phone | + + +---------+ + | Skyler Todd | ECON | Unknown | | + + +---------+ + Care Team Providers + +------+ + | Care Deep Submergence Vehicle Crewmember Name | Role | Phone | + [...] | | | | | | [place], [address] [place] [address] | | | | | | [place], [place] | | | | | | [address] | | | | | | [phone] | | | +--------+ + + + [...] | | + +---------+ + + | [facility] DEPARTMENT OF | | | | | RADIOLOGY | | | | + +---------+ + + documented in this encounter Visit Diagnoses + + | Diagnosis | + + | Hip pain, bilateral Pain in joint, pelvic region and thigh | + + documented in this encounter"
--- OUTSIDE RECORDS SUMMARY | ~2020-06-05 | XMS | Encounter Summary ---
Demographics + + + | Address | [address] | | | [place] [address] | + + + | Home Phone | | + + + | Preferred Language | Unknown | + + + | Marital Status | Single | + + + | Synagogue Affiliation | Unknown | + + + [...] Team Providers + +------+ + | Care Psychology Professor Name | Role | Phone | + [...] Draw | | 2010 | | at [facility] | [address] | | | | | [address] | [facility], | | | | | Loop [facility] | [place] [address] | | | | | [place], [address] [place] [address] | [phone] | | | | | [place], [place] | | | | | | [address] | | | | | | [phone] | | | +--------+ + + + [...]
--- OUTSIDE RECORDS SUMMARY | ~2020-06-05 | XMS | Encounter Summary ---
Demographics + + + | Address | [address] | | | [place] [address] | + + + | Home Phone [...] + + + | Author | [facility] | + + + | Organization | [facility] | + + + | Address | Unknown | + + + | Phone | Unavailable | + + + Support + + +---------+ + | Name | Relationship | Address | Phone | + + +---------+ + | Skyler Todd | ECON | Unknown | | + + +---------+ + Care Team Providers + +------+ + | Care Corporate Analyst Name | Role | Phone | + [...] | | [address] | Reena Carrasco [place], | | | | | Mailcode: [id number] | [place] [address] | | | | | [facility] | [phone] | | | | | [place], [place] | | | | | | [address] | | | | | | [phone] | | | +--------+--------+ + + + [...]
--- OUTSIDE RECORDS SUMMARY | ~2020-06-05 | XMS | Encounter Summary ---
Demographics + + + | Address | [address] | | | [place] [address] | + + + | Home Phone [...] Team Providers + +------+ + | Care Forming Tube Selector Name | Role | Phone | + [...] | | | [address] | [facility], | | | | | Mailcode: [id number] | [place] [address] | | | | | [facility] | [phone] | | | | | [place], [place] | | | | | | [address] | | | | | | [phone] | | | +--------+--------+ + + + [...]
--- OUTSIDE RECORDS SUMMARY | ~2020-06-05 | XMS | Encounter Summary ---
Demographics + + + | Address | [address] | | | [place] [address] | + + + | Home Phone [...] + + + | Author | [facility] | + + + | Organization | [facility] | + + + | Address | Unknown | + + + | Phone | Unavailable | + + + Support + + +---------+ + | Name | Relationship | Address | Phone | + + +---------+ + | Skyler Todd | ECON | Unknown | | + + +---------+ + Care Team Providers + +------+ + | Care Securities And Real Estate Director Name | Role | Phone | + +------+ + | Jerome Young MD | PCP | | + +------+ + Encounter Details +--------+ + + + + | Date | Type | Department | Care Team | Description | +--------+ + + + + | 03/27/ | Orders Only | [facility] | Faustina Henao MD | | | 2010 | | at [facility] | [address] | | | | | [address] | [facility], | | | | | [address] [facility] | [place] [address] | | | | | [facility] | [phone] | | | | | [place], [place] | | | | | | [address] | | | | | | [phone] | | | +--------+ + + + [...]
--- OUTSIDE RECORDS SUMMARY | ~2020-06-05 | XMS | Encounter Summary ---
Demographics + + + | Address | [address] | | | [place] [address] | + + + | Home Phone [...] + + | Author | [facility] | + + + | Organization | [facility] | + + + | Address | Unknown | + + + | Phone | Unavailable | + + + Support + + +---------+ + | Name | Relationship | Address | Phone | + + +---------+ + | Skyler Todd | ECON | Unknown | | + + +---------+ + Care Team Providers + +------+ + | Care Telegraphic Typewriter Operator Name | Role | Phone | [...] | | CHICO Young | Reena Carrasco [place], | virus infection) | | | | Mailcode: [id number] | [place] [address] | ([facility]) (Primary Dx); | | | | [facility] | [phone] | Herpes zoster | | | | [place], [place] | | without mention of | | | | [address] | | complication; | | | | [phone] | | Hearing loss in | | [...] y.o. HIV infected male who presents to [facility]. History of Present Illness: Pavan reports he was first diagnosed with HIV-infection in 29 04 in [place], when he presented for routine screening . [...] 289. He states his current provider in [facility], recently recommended he change his boosted darunavir to twice daily. Pavan notes, however , that he does occasionally miss his evening dose of his PIs. Currently, Pavan states he has recently recovered from a recent hospitalization in [place], [place] for a bronchitis and asthma exacerbation. [...] he feels is related to living in [facility]. He denies any problems with [...] 09/04/2010 [id number] 09/04/2010 Pavan was born in [place], [place]. He has lived in [place], [place] and [facility]. He chase es in [facility] with his partner and a dog. Physicial Examination: BP 144/88 | Pulse 114 | Temp (Src) 36.7 C (98 F) (Oral) | Ht 1.753 m (5' 9") | Wt 94.66 6 kg (208 lb 11.2 oz) | BMI 30.82 kg/(m^2) General: He is an alert, overweight man in [facility]. Skin: No rash or petechiae. Lymph Nodes: [...] atory sense intact throughout. He has normal gdcdfh-oc-mlzp exam. Normal gait. DTRs are 2+ and [...] + + + | [facility] ([facility]) [facility] | [place] | | [place] [address] [address] [facility] | REGIONAL | | [place] [address] | LABORATORY | + + + + + + + + | Performing | Address | City/State/Zipcode | Phone Number | | Organization | | | | + + + + + | [facility] | [address] | [place] [address] | | | LABORATORY | | | [...] At | + + + | [facility] ([facility]) [place] | [place] | | [place] [address] [address] [facility] | REGIONAL | | [place] [address] | LABORATORY | + + + + + + + + | Performing | Address | City/State/Zipcode | Phone Number | | Organization | | | | + + + + + | [facility] | [address] | [place] [address] | | | LABORATORY | | | [...] At | + + + | [facility] ([facility]) [place] | [place] | | [place] [address] | REGIONAL | | [place] [address] | LABORATORY | + + + + + + + + | Performing | Address | City/State/Zipcode | Phone Number | | Organization | | | | + + + + + | [facility] | [address] | [place] [address] | | | LABORATORY | | | [...] Way Lab) [place] | [place] | | [place] [address] [address] [facility] | [facility] | | [place] [address] | LABORATORY | + + + + + + + + | Performing | Address | City/State/Zipcode | Phone Number | | Organization | | | | + + + + + | [facility] | [address] | [place] [address] | | | LABORATORY | | | [...] | + + + + + | [facility] | [address] | [place] [address] | | | PATHOLOGY | [address] [...] Castillo, | | | | | | [place] [address] | | | | | | [phone] | | | | | | | | | | | | [email or web address], | | | | | | Loyda [...] [facility] | [address] | [place], [place] | | | [facility] | | [address] | | + + + + + [...] At | + + + | [facility] ([facility] [place]) [place] | [place] | | [place] [address] | REGIONAL | | [place] [address] | LABORATORY | + + + + + + + + | Performing | Address | City/State/Zipcode | Phone Number | | Organization | | | | + + + + + | [facility] | [address] | [place] [address] | | | LABORATORY | | | | + + + + + HIV QUANTITATIVE PCR, PLASMA (09/04/2010 12:09 PM PDT) + + + + + + | Component | Value | Ref Range | Performed | Pathologist | | | | | At | Signature | + + + + + + | HIV-QNT PCR | 54 | copies/mL | [facility] | | | | | | AL [...] + + + + | [facility] | [facility] [address] | [place] [address] | | | GENETICS LABS | [address] | | | | | [address]VE[address] [...] | CD4 (T Cell), whole blood | [facility] | | | DEPARTMENT OF | | | PATHOLOGY | + + + + + + + + | Performing | Address | City/State/Zipcode | Phone Number | | Organization | | | | + + + + + | [facility] DEPARTMENT OF | [address] | [place] [address] | | | PATHOLOGY | [address] [...] | | | DEPARTMENT | | | [facility] | | | OF | | | [...] DEPARTMENT OF | [address] | [place] [address] | | | PATHOLOGY | [address] [...] | + + + + + | [facility] | [address] | [place] [address] | | | PATHOLOGY | [address] [...]
--- OUTSIDE RECORDS SUMMARY | ~2020-06-05 | XMS | Encounter Summary ---
Demographics + + + | Address | [address] | | | [place] [address] | + + + | Home Phone [...] + + | Author | [facility] | | | and [place] | + + + | Organization | [facility] | | | and [place] | + + + | Address | Unknown | + + + | Phone | Unavailable | + + + Support + + +---------+ + | Name | Relationship | Address | Phone | + + +---------+ + | Serge Muñoz | ECON | Unknown | | + + +---------+ + | Sharmaine Hatt | ECON | Unknown | | + + +---------+ + Care Team Providers + +------+ + | Care Brand Protection Manager Name | Role | Phone | + +------+ + PCP | Unavailable | + +------+ + Encounter Details +--------+ + + + + | Date | Type | Department | Care Team | Description | +--------+ + + + + | 10/30/ | [facility] | [facility] | [place], | | | 2009 | Encounter | MED CTR GENERIC OP | Kate Wright MD | | | | | CONV DEPT [address] | | | | | | [place], | | | | | | [place] [address] | | | | | | [phone] | | | +--------+ + + + [...]
--- OUTSIDE RECORDS SUMMARY | ~2020-06-05 | XMS | Encounter Summary ---
Demographics + + + | Address | [address] | | | [place] [address] | + + + | Home Phone | | + + + | Preferred Language | Unknown | + + + | Marital Status | Single | + + + | Orthodoxy Affiliation | Unknown | + + + | Race | Unknown | + + + | Ethnic Group | Unknown | + + + Author + + + | Author | [facility] | | | and [place] | + + + | Organization | [facility] | | | and [...] Team Providers + +------+ + | Care State Auditor Name | Role | Phone | + +------+ + PCP | Unavailable | + +------+ + Encounter Details +--------+ + + + + | Date | Type | Department | Care Team | Description | +--------+ + + + + | 10/27/ | [facility] | [facility] | Bryson Brady, | | | 2010 | Encounter | MED CTR EMERGENCY | [address] | | | | | CENTER [address] | [place] | | | | | [place] | [address] | | | | | [address] | | | | | | [phone] | | | +--------+ + + + [...]
--- OUTSIDE RECORDS SUMMARY | ~2020-06-05 | XMS | Encounter Summary ---
Demographics + + + | Address | [address] | | | [place] [address] | + + + | Home Phone [...] Author + + + | Author | [facility] | + + + | Organization | [facility] | + + + | Address | Unknown | + + + | Phone | Unavailable | + + + Support + + +---------+ + | Name | Relationship | Address | Phone | + + +---------+ + | Skyler Todd | ECON | Unknown | | + + +---------+ + Care Team Providers + +------+ + | Care Attraction Worker Name | Role | Phone | [...] | | | CHICO Young | Reena [facility], | | | | | Mailcode: [id number] | [place] [address] | | | | | [facility] | [phone] | | | | | [place], [place] | | | | | | [address] | | | | | | [phone] | | | +--------+--------+ + + + [...]
--- OUTSIDE RECORDS SUMMARY | ~2020-06-05 | XMS | Encounter Summary ---
Demographics + + + | Address | [address] | | | [place] [address] | + + + | Home Phone | | + + + | Preferred Language | Unknown | + + + | Marital Status | Single | + + + | Hoahaoism Affiliation | Unknown | + + + | Race | Unknown | + + + | Ethnic Group | Unknown | + + + Author + + + | Author | [facility] | | | and [place] | + + + | Organization | [facility] | [...] Team Providers + +------+ + | Care Toys Inspector Name | Role | Phone | + +------+ + PCP | Unavailable | + +------+ + Encounter Details +--------+ + + + + | Date | Type | Department | Care Team | Description | +--------+ + + + + | 08/26/ | Hospital | [facility] | Ivis Little, | | | 2009 - | Encounter | MED CTR MED ONC | [address] | | | | | [address] | [place] | | | 08/27/ | | [place] [address] | [address] | | | 2009 | | [phone] | | | +--------+ + + + [...]
--- OUTSIDE RECORDS SUMMARY | ~2020-06-05 | XMS | Encounter Summary ---
Demographics + + + | Address | [address] | | | [place] [address] | + + + | Home Phone | | + + + | Preferred Language | Unknown | + + + | Marital Status | Single | + + + | Gnosticist Affiliation | Unknown | + + + | Race | Unknown | + + + | Ethnic Group | Unknown | + + + Author + + + | Author | [facility] | | | and [place] | + + + | Organization | [facility] | | | and [place] [...] Team Providers + +------+ + | Care Pathology Laboratory Technologist Name | Role | Phone | + +------+ + PCP | Unavailable | + +------+ + Encounter Details +--------+ + + + + | Date | Type | Department | Care Team | Description | +--------+ + + + + | 01/31/ | Hospital | [facility] | [place], | | | 2010 | Encounter | MED CTR SLEEP | Kate Wright MD | | | | | CENTER [address] | | | | | | [place] | | | | | | [address] | | | | | | [phone] | | | +--------+ + + + [...] + + documented as of this encounter Miscellaneous Notes Sleep Disorders - Aj Gooden Jr., MD - 01/31/2011 1:32 PM PDTDATE: 01/31/2011 cc: [facility] Aj Gooden Jr., MD, [facility] Kate Seymour MD DIAGNOSTIC NOCTURNAL POLYSOMNOGRAM CLINICAL INFORMATION: This is a 45-year-old gentleman referred for polysomnographic study by Dr. Kate Seymour. The patient has recently been treated for chronic bronchitis. Hi s partner has not iced that he snores a lot, especially with acute illnesses, but also has witnessed apneas. FINDINGS: Prior to the study the patient scored 9 points on the [place] Sleepiness Scale, which endo rses a mild to moderate amount of recognized excessive daytime sleepiness. The patient reported this to be a worse than usual night's sleep. SLEEP ARCHITECTURE: Lights out was recorded at 10:40 p.m. Lights on was recorded at 5:40 a .m. The latency to sleep onset was normal at 19 minutes. The patient slept for 268 minutes out of 420 minutes of study time. The sleep efficiency is reduced at 63.8%. The patient was felt to have a fairly subst antial "fi rst night" effect in the laboratory. The amount of N1 sleep is normal at 3.7% of the evening. The amount of N2 sleep is normal a t 38.6% of the evening and the amount of N3 sleep is normal at 10.5% of the evening. The amount of rapid e ye movemen t sleep is normal at 14.9% of the evening. The latency to rapid eye movement sleep is within normal kendall its at 127.5 minutes. The patient spent 18.7% of the evening in the left lateral decubitus position. He spent 44. 2% of the evening in the right lateral decubitus position. He spent 37.1% of the evening in supine position. Sle ep was mod erately fragmented. The arousal index is 31.1. CARDIOPULMONARY MONITORING: The heart rate averaged between 96 and 100, which is fairly ra pid. In the course of the evening there was 1 central apnea. There were 74 hypopneas and th ere were 32 res piratory effort-related arousals. The respiratory disturbance index is elevated at 24. The apnea-hyp opnea inde x is elevated at 16.8. The respiratory events were of clinical significance in all stages of sle ep and all body positions, although they were much more frequently seen in rapid eye movement sleep. The respiratory e vents occa sioned significant sleep fragmentation. The respiratory arousal index is 14.6. The respiratory elena nts occasi oned significant oxygen desaturation. Александр desaturation was 83% and the patient spent 22 minute s with an oxygen saturation of under 88%. LIMB MOVEMENT MONITORING: There were 77 periodic limb movements. The PLMS index is elevate d at 17.2. Only 15 were associated with arousals. The PLMS arousal index was 3.4. MISCELLANEOUS: This study was originally scheduled as a split-night polysomnogram, however , the patient did not meet disease severity criteria and thus the study was performed as a diagnostic [facility] polysomnogram. INTERPRETATION: THIS IS AN ABNORMAL NOCTURNAL POLYSOMNOGRAM SECONDARY TO-- 1. MILD TO MOD ERATE OBSTRUCTIVE APNEA IS PRESENT. This does significantly fragment sleep. It is associate d with mild oxygen desaturation. 2. SLEEP ARCHITECTURE IS ABNORMAL, PRIMARILY SECONDARY TO INCREASED SLEEP FRAGMENTATION OC CASIONED BY OBSTRUCTIVE BREATHING, WELL DECREASED SLEEP EFFICIENCY WHICH MAY BE IN FA CT SECONDARY TO FIRST NIGHT EFFECT IN THE LABORATORY. SUGGESTIONS 1. The principles of sleep hygiene should be reviewed with the patient. 2. A trial of CPAP therapy is advised. This could either be titrated in the laboratory or using an au to-titr ating machine at home. Aj Gooden Jr., MD, FAASM Diplomate [place] [employer] of [employer] Medicine Diplomate in Sleep Medicine Boat Wrapper, Kate [facility] Clinical Appliance Service Representative Prudencio lin [facility], [facility] JOB #: [id number] EXT JOB #:[id number] <Electronicall y Signed by Aj Gooden MD> 02/07/11 0954 documented in this encounter Plan of Treatment Not on filedocumented as of this encounter Visit Diagnoses Not on filedocumented in this encounter
--- OUTSIDE RECORDS SUMMARY | ~2020-06-05 | XMS | Encounter Summary ---
Demographics + + + | Address | [address] | | | [place] [address] | + + + | Home Phone [...] Team Providers + +------+ + | Care Chaperon Name | Role | Phone | + [...] | | CHICO Young | Reena Carrasco [place], | Authorization | | | | Mailcode: [id number] | [place] [address] | | | | | [facility] | [phone] | | | | | [place], [place] | | | | | | [address] | | | | | | [phone] | | | +--------+ + + + [...]
--- OUTSIDE RECORDS SUMMARY | ~2020-06-05 | XMS | Encounter Summary ---
Demographics + + + | Address | [address] | | | [place] [address] | + + + | Home Phone | | + + + | Preferred Language | Unknown | + + + | Marital Status | Single | + + + | Jew Affiliation | Unknown | + + + | Race | Unknown | + + + | Ethnic Group | Unknown | + + + Author + + + | Author | [facility] | | | and [place] | + + + | Organization | [facility] | | | and [place] [...] Team Providers + +------+ + | Care Ball Racker Name | Role | Phone | + +------+ + PCP | Unavailable | + +------+ + Encounter Details +--------+ + + + + | Date | Type | Department | Care Team | Description | +--------+ + + + + | 04/14/ | Hospital | [facility] | Ekta Jacome MD [address] | | | 2010 - | Encounter | [facility] | [address] | | | | | [address] | [address] | | | 04/16/ | | [place] [id number] | [address] | | | 2010 | | [phone] | | | +--------+ + + + [...] documented as of this encounter Discharge Summaries Pavan Clifford MD - 04/14/2011 10:57 PM PDTADMISSION DATE: 04/14/2011 DISCHARGE DATE: 04/16/2011 ADMISSION IMPRESSION: Cellulitis of the left side of the face. FINAL DIAGNOSIS: LEFT FACIAL CELLULITIS. SECONDARY DIAGNOSES 1. AIDS. 2. HYPERLIPIDEMIA. 3. CHRONIC HIP PAIN. 4. DISTANT HISTORY 5 YEARS AGO, OF MRSA CELLULITIS OF THE RIGHT ARM WHILE IN [place]. NARRATIVE SUMMARY: Mr. Anderson is a 45-year-old, white male with acquired immune deficienc y syndrome and chronic pain who presented with a cellulitis of the left face and ear to the emergency room the day prior to admission. He was sent home on oral clindamycin after gett ing 1 dose IV, but the pharmacy in [place] did not have clindamycin and they gave him Brenna trim instead. The patient's pain apparently worsened. He presented again to the emergency r oom, where he was subsequently admitted for IV antibiotics. Please see Ekta Jacome MD's dictated history and physical for the details of his presenta tion. The patient had an initial white count of only 7000 with a hemoglobin of 13.6, hematocrit of 41.2, platelets were 199,000 at 53% neutrophils, 32% lymphocytes, 9% monocytes and 5% eo sinophils. Repeat CBC on the showed a white count of 5.9, hemoglobin 12.6, hematocrit 3 7.6, platelets 195,000. Chemistry panel was really fairly unremarkable outside of an elevat ed C. reactive protein at 104.9. Urinalysis was clean. The patient did get a CT scan of his face with while in the emergency room on the day of admission, and that showed extensive l eft facial soft tissue swelling, but no abscess. These changes were also associated with s ome lymphadenopathy and there were changes in the left mastoid region which appeared to be postsurgical, and there was a concern that this may be an infectious process involving in t he left mastoid. The x-rays were reviewed with a local Ear, Nose and Throat doctor who felt that continued antibiotic treatment as an outpatient was indicated and close follow up was required. I came on service on the and by early afternoon that day, the patient had r equested discharge. He said that his facial swelling was much improved from what it had bee n. He felt that he was stable enough for discharge. He had received Vancomycin and Unasyn i n the hospital. He was afebrile. His white count was down from what it had been, and I fel t that it was reasonable to go ahead and let him go as long as he has close followup. He sa ys that he does stay in close contact with both Dr. Young as well as Dr. Rivera who is an HI V specialist at [facility]. He told me that he had an appointment to see her 2 days or [address] discharge, and I felt that was quite reasonable. The patient was thus discharged on 04/16/2011. MEDICATIONS 1. His usual home medications which we have listed as: a. Aspirin 81 mg p.o. daily. b. Ativan 1 mg p.o. t.i.d. c. Flovent 220 one inhalation, we have listed every week. d. Lortab 7.55 100 t.i.d. p.r.n. e. Norvir 100 mg p.o. daily. f. Prezista 600 mg p.o. daily. g. Simvastatin 20 mg p.o. daily. h. Truvada 200-300 p.o. daily. i. Ventolin metered-dose inhaler 2 puffs twice per day. j. Vitamin D3, 5000 units p.o. daily. 2. In addition, he will take the: 3. He will resume the Bactrim DS that he had been taking prior to this admission. DICTATED BY: Pavan Clifford MD JOB #: [id number] EXT JOB #:[id number] cc: MD Ekta Mcintyre MD Dr. O'Hern at [facility] <Electronically Signed by Pavan Clifford MD> 04/16/11 1525 documented in this encounter Medications at Time [...] + + documented as of this encounter H&P Notes Ekta Jacome MD - 04/14/2011 10:57 PM PDTDATE: 04/14/2011 PRIMARY CARE PROVIDER: Jerome Young MD The patient sees an HIV specialist at [facility] by the name of Dr. Ruggiero. CHIEF COMPLAINT: Worsening left-sided facial cellulitis. HISTORY OF PRESENT ILLNESS: This is a 45-year-old male with AIDS, chronic pain, who presen leobardo to the ER here yesterday with cellulitis of the left face and ear. He was evaluated in the ER here. It was felt to be simple cellulitis. No evidence of abscess. He was given 1 do se of IV clindamycin and disch arged home with p.o. clindamycin; however, when the patient arrived in [place], they did not have c lindamycin. They substituted for Bactrim. The pat ient's facial swelling did not improve after 1 dose of clindamycin, and he continues to hav e throbbing pain. He was concerned and came back to the ER. The patient denies fevers or chills. He does report lots of pain. No vision problems. No hi story of c ellulitis in the past. No new pets. No travels. ALLERGIES: PROBABLE CIPRO. MEDICATIONS 1. Vitamin D3 5000 units daily. 2. Simvastatin 20 mg daily. 3. Norvir 100 mg daily. 4. Ativan 1 mg p.r.n. 5. Lortab 7.5/500 p.o. t.i.d. 6. Fluticasone 220 mcg inhaled twice a day. 7. Truvada 200-300 mg 1 tablet daily. 8. Prezista 600 mg daily. 9. Aspirin 81 mg daily. 10. Albuterol 2 puffs twice a day. PAST MEDICAL HISTORY 1. AIDS. 2. Hyperlipidemia. 3. Chronic pain of the hip. 4. Medical marijuana user. PAST SURGICAL HISTORY: Bilateral mastoidectomy. FAMILY HISTORY: Patient is adopted. SOCIAL HISTORY: He currently has a partner. He is a homosexual. He was diagnosed with AIDS in 2005. He smokes a pack a day. Denies drugs. Denies alcohol. CODE STATUS: NOT ENTERTAINED. PHYSICAL EXAM VITAL SIGNS: Currently, blood pressure is 112/8600, heart rate 100, respirations 18, tempe rature 99, sats 97%. GENERAL: A white male in no acute distress. He is accompanied by his partner. SKIN: No rash or lesions. He does have cellulitis on the side of his face and his ear. HEENT: Again, there is swelling of the left side of his face, ear, and his eyelids. Normoc ephalic, a traumatic. Pupils are equally round, reactive to light and accommodation. Extrao cular muscles intact. Conjunctivae are without hemorrhage or exudate. Oral mucosa moist. LUNGS: Clear without wheezing or crackles. CARDIAC: S1, S2 is present. No murmurs, gallops, or regurgitation. ABDOMEN: Soft, nontender, nondistended. EXTREMITIES: No edema, clubbing, or cyanosis. BACK: Deferred. NEUROLOGIC: Deferred. PSYCHIATRIC: Deferred. DATABASE: Hemoglobin 14.2, hematocrit 42, white count 9, platelets 197. Sodium 137, potass ium 3.7, c hloride 95, bicarbonate 27, creatinine 0.8, BUN 14, glucose 134, anion gap 18.7. IMPRESSION 1. LEFT FACIAL CELLULITIS. Failed outpatient p.o. antibiotics; however, it is only 12 hours ago. IV a ntibiotics. Check CT of the face to rule out orbital cellulitis, which I doubt. 2. AIDS. Continue home medications. Immunocompromised. Medical marijuana use for chronic pa in. 3. ELEVATED ANION GAP. Question some of the medications he is taking is causing artificial anion gap. He does not appear toxic. Check pH. PLAN: Admit. IV antibiotics, nicotine patch. The patient may use his medical marijuana pro ducts, but he cannot smoke them while at the hospital. We will follow up on the CT of the f miles. DICTATED BY: Ekta Jacome MD Internal Medicine JOB #: [id number] EXT JOB #:[id number] cc: MD Domo Mcintyre MD <Electronically Signed by Ekta Jacome MD> 04/23/11 0730 documented in this encounter ED Notes Domo Tillman MD - 04/14/2011 10:57 PM PDTDATE: 04/14/2011 IDENTIFICATION: This is a 45-year-old male. CHIEF COMPLAINT: Facial and ear swelling and redness. HISTORY OF PRESENT ILLNESS: This patient was seen yesterday. He developed left-sided facia l swelling and redness that started on the ear and moved forward. He was given an intraveno us dose of clindamyc in. He was prescribed oral clindamycin. When he tried to get the clind amycin filled today, the [facility] did not have it and substitute was Bactrim after calling the ER. He did take 1 Bactrim tablet, he says. However, the swelling and redness has gotte n much worse and he is now starting to have problems with some swelling around the left eye , although the eye is not painful, and there is no pain with m oving the eye. He feels like he has some malaise, but mostly it is a pain issue in the left side of the fa ce, and th at is the biggest factor, so he came to emergency department to be evaluated. PAST MEDICAL HISTORY: He is a HIV positive and AIDS criteria. He has asthma, anxiety, and hyperchole sterolemia. He has had MRSA skin infection before. MEDICATIONS 1. Trimethoprim sulfamethoxazole; that was just started. 2. Vitamin D. 3. Simvastatin. 4. Norvir. 5. Ativan. 6. Lortab 7.5 strength. 7. Flovent. 8. Truvada. 9. Prezista. 10. Aspirin. 11. Albuterol. ALLERGIES: CIPRO. SOCIAL HISTORY: He is providing his own history. No substance abuse. REVIEW OF SYSTEMS GENERAL: He has malaise. No specific fevers. HEAD: No headache. EYES: No change in vision. EARS: No change in hearing. THROAT: No sore throat. HEART: No chest pain or palpitations. RESPIRATORY: No cough, wheezing, sputum production, or shortness of breath. GI: No vomiting or diarrhea. : No burning with urination, frequency, or urgency. MUSCULOSKELETAL: No specific complaint. DERMATOLOGY: Facial reddening and pain and swelling. NEUROLOGIC: No seizure or stroke-like symptoms. PHYSICAL EXAM VITAL SIGNS: Blood pressure 112/86, pulse 100, respirations 18, temp 99, saturation 97% on room air. GENERAL: This is a well-nourished 45-year-old male. HEENT: He has erythema involving the left ear and left side of his head and face, up aroun d the left eye. It is weeping. There is soft tissue swelling and edema, but no fluctuance. There is no tenderne ss behind the left ear over the mastoid area. The ear canal is not swo llen. There is a healed incisio n from his mastoidectomy 3 months ago. His nose and throat are clear. Extraocular muscles are fully i ntact without pain. Pupils were equal, reactive to light and accommodation. NECK: Supple. No adenopathy. HEART: Regular rate and rhythm. LUNGS: Clear to auscultation. ABDOMEN: Soft, nontender. EXTREMITIES: Warm, well-perfused. No edema. Good range of motion. No joint swelling or def ormity. NEUROLOGIC: He is alert, interactive. Good muscle tone and strength. Speech is clear. Gait is normal . EMERGENCY ROOM COURSE / TEST REVIEW: The patient was seen and examined shortly after arriv ing in the emergency department. History and physical obtained. Vital signs were noted. He has progressive cell ulitis in an immunocompromised host. CBC and basic metabolic profile from yesterday were reviewed. Blood cultures were reviewed; there are negative to date. An IV was established. He was given clindamycin 900 mg IV. We also gave him some Zofran and morphine for symptom control. CT scan with IV contrast was done of the left side of the face to exclude abscess and osteo myelitis. He is going to require admission to the hospital. I contacted Dr. Jacome, hospitalist micropaleontologist . He came down and evaluated the patient here in the emergency department, and is admitting him for further man agement and care at this time. The patient is in agreement with the treatment plan. IMPRESSION 1. PROGRESSIVE LEFT SIDE FACIAL CELLULITIS. 2. IMMUNE COMPROMISE. PLAN: Patient is being admitted in unchanged condition for further management and care. DICTATED BY: Domo Tillman MD Emergency Medicine JOB #: [id number] EXT JOB #:[id number] <Electronicall y Signed by Domo Tillman MD> 04/15/11 2336 documented in this encounter Plan of Treatment Not on filedocumented as of this encounter Procedures + +--------+ + + + | Procedure Name | Priori | Date/Time | Associated Diagnosis | Comments | | | ty | | | | + +--------+ + + + | CBC NO DIFFERENTIAL | Routin | 04/16/2011 | | Results for this | | | e | 6:54 AM | | procedure are in the | | | | PDT | | results section. | + +--------+ + + + | MAGNESIUM | Routin | 04/16/2011 | | Results for this | | | e | 6:54 AM | | procedure are in the | | | | PDT | | results section. | + +--------+ + + + | RENAL FUNCTION PANEL | Routin | 04/16/2011 | | Results for this | | | e | 6:54 AM | | procedure are in the | | | | PDT | | results section. | + +--------+ + + + | URINALYSIS, REFLEX | Routin | 04/15/2011 | | Results for this | | MICROSCOPIC AND/OR | e | 7:23 AM | | procedure are in the | | CULTURE | | PDT | | results section. | + +--------+ + + + | CBC WITH | Routin | 04/15/2011 | | Results for this | | DIFFERENTIAL | e | 6:43 AM | | procedure are in the | | | | PDT | | results section. | + +--------+ + + + | C-REACTIVE PROTEIN | Routin | 04/15/2011 | | Results for this | | | e | 6:43 AM | | procedure are in the | | | | PDT | | results section. | + +--------+ + + + | MAGNESIUM | Routin | 04/15/2011 | | Results for this | | | e | 6:43 AM | | procedure are in the | | | | PDT | | results section. | + +--------+ + + + | RENAL FUNCTION PANEL | Routin | 04/15/2011 | | Results for this | | | e | 6:43 AM | | procedure are in the | | | | PDT | | results section. | + +--------+ + + + | BLOOD GAS, ARTERIAL | Routin | 04/15/2011 | | Results for this | | | e | 12:18 AM | | procedure are in the | | | | PDT | | results section. | + +--------+ + + + | LACTIC ACID | Routin | 04/14/2011 | | Results for this | | | e | 11:43 PM | | procedure are in the | | | | PDT | | results section. | + +--------+ + + + | CT MAXILLOFACIAL W | | 04/14/2011 | | Results for this | | CONTRAST | | 10:57 PM | | procedure are in the | | | | PDT | | results section. | + +--------+ + + + documented in this encounter Results Renal Function Panel (04/16/2011 6:54 AM PDT) + + + + + [...] + + + | Calcium | 8.3 | 8.3 - 10.5 | [facility] | | | | | mg/dL | [facility] | | | | | | [facility] | | | | | | [facility] - | | | | | | LABORATORY | | + + + + + + | Phosphorus | 3.0 | 2.5 - 4.6 mg/dL | [facility] | | | | | | [facility] | | | | | | [facility] | | | | | | [facility] - | | | | | | LABORATORY | | + + + + + + | Albumin | 2.9 (L) | 3.2 - 5.0 gm/dL | [facility] | | | | | | [facility] | | | | | | [facility]ICAL | | | | | | CENTER - | | | | | | LABORATORY | | + + + + + + | BUN | 11 | 7 - 18 mg/dL | [facility] | | | | | | [facility] | | | | | | [facility]ICAL | | | | | | CENTER - | | | | | | LABORATORY | | + + + + + + | Creatinine | 0.82 | 0.60 - 1.30 | [facility] | | | | | mg/dL | [...] + + + + | BUN/Creatin | 13.4 | 12 - 20 | [facility] | [...] + + + + | K | 4.6 | 3.5 - 5.1 mEq/l | [facility] | | | | | | [facility] | | | | | | [facility] | | | | | | [facility] - | | | | | | LABORATORY | | + + + + + + | Cl | 107 | 98 - 109 mEq/l | [facility] | | | | | | [facility] | | | | | | [facility] | | | | | | [facility] - | | | | | | LABORATORY | | + + + + + + | CO2 | 26 | 24 - 31 mEq/L | [facility] | | | | | | [facility] | | | | | | [facility] | | | | | | [facility] - | | | | | | LABORATORY | | + + + + + + | Anion Gap | 8.6 | 6.0 - 17.0 | [facility] | [...] + | [facility] | [address] | [place], [place] | [phone] | | [facility] | | [address] | | | - LABORATORY | | | | + + + + + | [facility] | [address] | [place], [place] | | | [facility] | | [address], [facility] | | | - LABORATORY | | | | + + + + + Magnesium (04/16/2011 6:54 AM PDT) + +-------+ + + + | Component | Value | Ref Range | Performed | Pathologist | | | | | At | Signature | + +-------+ + + + | Magnesium | 2.1 | 1.8 - 2.5 mg/dL | [facility] | | | | | | [facility] | | | | | | [...] + | [facility] | [address] | [place] | [phone] | | [facility] | | [address] | | | - LABORATORY | | | | + + + + + | [facility] | [address] | [place] | | | [facility] | | [id number], [facility] | | | - LABORATORY | | | | + + + + + CBC no Differential (04/16/2011 6:54 AM PDT) + + + + + + | Component | Value | Ref Range | Performed | Pathologist | | | | | At | Signature | + + + + + + | White Blood | 5.9 (A) | 4.0 - 11.0 K/uL | [facility] | | | Cells | | | [facility] | | | | | | MEDICAL | | | | | | CENTER - | | | | | | LABORATORY | | + + + + + + | Red Blood | 4.05 (L) | 4.30 - 5.70 | [facility] | | | Cells | | M/uL | [facility] | | | | | | MEDICAL | | | | | | CENTER - | | | | | | LABORATORY | | + + + + + + | Hemoglobin | 12.6 (L) | 13.5 - 18.0 | [facility] | | | | | gm/dL | [facility] | | | | | | [facility] | | | | | | C[facility] - | | | | | | LABORATORY | | + + + + + + | Hematocrit | 37.6 (L) | 40.0 - 51.0 % | [facility] | | | | | | [facility] | | | | | | [facility]ICAL | | | | | | C[facility] - | | | | | | LABORATORY | | + + + + + + | MCV | 92.8 | 83.0 - 101.0 fL | [facility] | | | | | | [facility] | | | | | | [facility]ICAL | | | | | | CENTER - | | | | | | LABORATORY | | + + + + + + | MCH | 31.1 | 28.0 - 35.0 pg | [facility] [...] + + + + | Platelet | 195 | 140 - 440 K/uL | [facility] [...] + | [facility] | [address] | [place] | [phone] | | [facility] | | [address] | | | - LABORATORY | | | | + + + + + | [facility] | [address] | [place] | | | [facility] | | [id number], [facility] | | | - LABORATORY | | | | + + + + + Urinalysis, Reflex Microscopic and/or Culture (04/15/2011 7:23 AM PDT) + + + + + + | Component | Value | Ref Range | Performed | Pathologist | | | | | At | Signature | + + + + + + | COLLECTION | VOID | | [facility] | | | METHOD [facility] | | | [facility] | | | | | | MEDICAL | | | | | | CENTER - | | | | | | LABORATORY | | + + + + + + | Color, | YELLOW | | [facility] | | | Urine | | | [facility] | | | | | | MEDICAL | | | | | | CENTER - | | | | | | LABORATORY | | + + + + + + | Clarity, | CLEAR | | [facility] | | | Urine | | | [facility] | | | | | | MEDICAL | | | | | | CENTER - | | | | | | LABORATORY | | + + + + + + | Glucose, | NEGATIVE | NEGATIVE mg/dL | [facility] | | | Urine | | | [facility] | | | | | | MEDICAL | | | | | | CENTER - | | | | | | LABORATORY | | + + + + + + | Bilirubin, | NEGATIVE | NEGATIVE | [facility] | | | Urine | | | [facility] | | | | | | MEDICAL | | | | | | CENTER - | | | | | | LABORATORY | | + + + + + + | Ketones, | NEGATIVE | NEGATIVE | [facility] | | | Urine | | | [facility] | | | | | | MEDICAL | | | | | | CENTER - | | | | | | LABORATORY | | + + + + + + | Specific | 1.025 | 1.001 - 1.030 | [facility] | | | [place], | | | [facility] | | | Urine | | | MEDICAL | | | | | | CENTER - | | | | | | LABORATORY | | + + + + + + | Blood, | NEGATIVE | NEGATIVE | [facility] | | | Urine | | | [facility] | | | | | | MEDICAL | | | | | | CENTER - | | | | | | LABORATORY | | + + + + + + | pH, Urine | 6.0 | 5.0 - 8.0 | [facility] | | | | | | [facility] | | | | | | MEDICAL | | | | | | CENTER - | | | | | | LABORATORY | | + + + + + + | Protein, | NEGATIVE | NEGATIVE mg/dL | [facility] | | | Urine | | | [facility] | | | | | | MEDICAL | | | | | | CENTER - | | | | | | LABORATORY | | + + + + + + | Urobilinoge | NORMAL | NORMAL EU/dL | [facility] | | | n, Urine | | | [facility] | | | | | | MEDICAL | | | | | | CENTER - | | | | | | LABORATORY | | + + + + + + | Nitrite, | NEGATIVE | NEGATIVE | [facility] | | | Urine | | | [facility] | | | | | | MEDICAL | | | | | | CENTER - | | | | | | LABORATORY | | + + + + + + | Leukocyte | NEGATIVE | NEGATIVE | [facility] | | | Esterase, | | | [facility] | | | Urine | | | MEDICAL | | | | | | CENTER - | | | | | | LABORATORY | | + + + + + + | MICROSCOPIC | NO | | [facility] | | | ? | | | [facility] | | [...] | [facility] | [address] | [place], [place] | [phone] | | [facility] | | [address] | | | - LABORATORY | | | | + + + + + | [facility] | [address] | [place], [place] | | | [facility] | | [address], [facility] | | | - LABORATORY | | | | + + + + + Renal Function Panel (04/15/2011 6:43 AM PDT) + + + + + + | Component | Value | Ref Range | Performed | Pathologist | | | | | At | Signature | + + + + + + | Glucose | 98 | 70 - 109 mg/dL | [facility] | | | | | | [facility] | | | | | | MEDICAL | | | | | | CENTER - | | | | | | LABORATORY | | + + + + + + | Calcium | 8.3 (A) | 8.3 - 10.5 | [facility] | | | | | mg/dL | [facility] | | | | | | MEDICAL | | | | | | CENTER - | | | | | | LABORATORY | | + + + + + + | Phosphorus | 4.7 (H) | 2.5 - 4.6 mg/dL | [facility] | | | | | | [facility] | | | | | | MEDICAL | | | | | | CENTER - | | | | | | LABORATORY | | + + + + + + | Albumin | 3.3 | 3.2 - 5.0 gm/dL | [facility] | | | | | | [facility] | | | | | | MEDICAL | | | | | | CENTER - | | | | | | LABORATORY | | + + + + + + | BUN | 11 | 7 - 18 mg/dL | [facility] | | | | | | [facility] | | | | | | MEDICAL | | | | | | CENTER - | | | | | | LABORATORY | | + + + + + + | Creatinine | 0.88 | 0.60 - 1.30 | [facility] | | | | | mg/dL | [...] + + + + | BUN/Creatin | 12.5 | 12 - 20 | [facility] | | | ine Ratio | | | [facility] | | | | | | MEDICAL | | | | | | CENTER - | | | | | | LABORATORY | | + + + + + + | Na | 134 (L) | 136 - 149 mEq/L | [facility] [...] + + + + | Cl | 101 | 98 - 109 mEq/l | [facility] | | | | | | [facility] | | | | | | MEDICAL | | | | | | CENTER - | | | | | | LABORATORY | | + + + + + + | CO2 | 28 | 24 - 31 mEq/L | [facility] | | | | | | [facility] | | | [facility] | | MEDICAL | | | | | | CENTER - | | | | | | LABORATORY | | + + + + + + | Anion Gap | 8.8 | 6.0 - 17.0 | [facility] | [...] + | [facility] | [address] | [place] | [phone] | | [facility] | | [address] | | | - LABORATORY | | | | + + + + + | [facility] | [address] | [place], [place] | | | [facility] | | [address], [facility] | | | - LABORATORY | | | | + + + + + C-Reactive Protein (04/15/2011 6:43 AM PDT) + + + + + + | Component | Value | Ref Range | Performed | Pathologist | | | | | At | Signature | + + + + + + | CRP | 104.90 (H)Comment: | <8.0 mg/L | [facility] | | | | Levels >8.0 mg/L | | [facility] | | | | indicate possible | | MEDICAL | | | | infection, trauma, | | CENTER - | | | | cardiac infarct or | | LABORATORY | | | | neoplastic | | | | | | proliferation. | | | | + + + + + + + + | Specimen | + + | | + + + + + + + | Performing | Address | City/State/Zipcode | Phone Number | | Organization | | | | + + + + + | [facility] | [address] | [place] | [phone] | | [facility] | | [address] | | | - LABORATORY | | | | + + + + + | [facility] | [address] | [place] | | | [facility] | | [id number] | | | - LABORATORY | | | | + + + + + Magnesium (04/15/2011 6:43 AM PDT) + +-------+ + + + | Component | Value | Ref Range | Performed | Pathologist | | | | | At | Signature | + +-------+ + + + | Magnesium | 2.2 | 1.8 - 2.5 mg/dL | [facility] | | | | | | [facility] | | | | | | [facility]ICAL | | | | | | CENTER - | | | | | | LABORATORY | | + +-------+ + + + + + | Specimen | + + | | + + + + + + + | Performing | Address | City[facility] | Phone Number | | Organization | | | | + + + + + | [facility] | [address] | [place], [place] | [phone] | | [facility] | | [address] | | | - LABORATORY | | | | + + + + + | [facility] | [address] | [place], [place] | | | [facility] | | [id number] [place] [address] | | | - LABORATORY | | | | + + + + + CBC with Differential (04/15/2011 6:43 AM PDT) + +---------+ + + + | Component | Value | Ref Range | Performed | Pathologist | | | | | At | Signature | + +---------+ + + + | White Blood | 7.0 (A) | 4.0 - 11.0 K/uL | [facility] | | | Cells | | | [facility] | | | | | [facility] | | | | [facility] - | | | | | | LABORATORY | | + +---------+ + + + | Red Blood | 4.43 | 4.30 - 5.70 | [facility] | | | Cells | | M/uL | [facility] | | | | | | [facility] | | | | | | [facility] - | | | | | | LABORATORY | | + +---------+ + + + | Hemoglobin | 13.6 | 13.5 - 18.0 | [facility] | | | | | gm/dL | [facility] | | | | | | [facility] | | | | | | [facility] - | | | | | | LABORATORY | | + +---------+ + + + | Hematocrit | 41.2 | 40.0 - 51.0 % | [facility] | | | | | | [facility] | | | | | | [facility] | | | | | | [facility] - | | | | | | LABORATORY | | + +---------+ + + + | MCV | 93.1 | 83.0 - 101.0 fL | [facility] | | | | | | [facility] | | | | | | [facility] | | | | | | [facility] - | | | | | | LABORATORY | | + +---------+ + + + | MCH | 30.8 | 28.0 - 35.0 pg | [facility] | | | | | | [facility] | | | | | | [facility] | | | | | | [facility] - | | | | | | LABORATORY | | + +---------+ + + + | MCHC | 33.0 | 32.0 - 36.0 | [facility] | | | | | g/dL | [facility] | | | | | | [facility] | | | | | | [facility] - | | | | | | LABORATORY | | + +---------+ + + + | RDW-CV | 14.1 | <15.0 % | [facility] | | | | | | [facility] | | | | | | [facility] | | | | | | [facility] - | | | | | | LABORATORY | | + +---------+ + + + | Platelet | 199 | 140 - 440 K/uL | [facility] | | | Count | | | [facility] | | | | | | [facility] | | | | | | [facility] - | | | | | | LABORATORY | | + +---------+ + + + | % | 53.2 | 45 - 75 % | [facility] | | | Neutrophils | | | [facility] | | | | | | [facility] | | | | | | CENTER - | | | | | | LABORATORY | | + +---------+ + + + | % | 32.0 | 20 - 45 % | [facility] | | | Lymphocytes | | | [facility] | | | | | | [facility] | | | | | | CENTER - | | | | | | LABORATORY | | + +---------+ + + + | % Monocytes | 9.0 | 4 - 12 % | [facility] | | | | | | [facility] | | | | | | [facility] | | | | | | [facility] - | | | | | | LABORATORY | | + +---------+ + + + | % | 5.1 (H) | 0 - 5 % | [facility] | | | Eosinophils | | | [facility] | | | | | | [facility] | | | | | | CENTER - | | | | | | LABORATORY | | + +---------+ + + + | % Basophils | 0.7 | 0 - 1 % | [facility] | | | | | | [facility] | | | | | | [facility] | | | | | | [facility] - | | | | | | LABORATORY | | + +---------+ + + + | Absolute | 3.7 | 1.5 - 6.6 K/uL | [facility] | | | Neutrophils | | | [facility] | | | | | | [facility] | | | | | | [facility]ENTER - | | | | | | LABORATORY | | + +---------+ + + + | Absolute | 2.3 | 0.6 - 3.2 K/uL | [facility] | | | Lymphocytes | | | [facility] | | | | | | [facility] | | | | | | [facility]ENTER - | | | | | | LABORATORY | | + +---------+ + + + | Absolute | 0.6 | 0.0 - 1.0 K/uL | [facility] | | | Monocytes | | | [facility] | | | | | | [facility] | | | | | | [facility] - | | | | | | LABORATORY | | + +---------+ + + + | Absolute | 0.4 | 0.0 - 0.4 K/uL | [facility] | | | Eosinophils | | | [facility] | | | | | | [facility] | | | | | | [facility] - | | | | | | LABORATORY | | + +---------+ + + + | Absolute | 0.0 | 0.0 - 0.1 K/uL | [facility] | | | Basophils | | | [facility] | | | | | | [facility] | | | | | | CENTER - | | | | | | LABORATORY | | + +---------+ + + + + + | Specimen | + + | | + + + + + + + | Performing | Address | City/State/Zipcode | Phone Number | | Organization | | | | + + + + + | [facility] | [address] | [place] | [phone] | | [facility] | | [id number] | | | - LABORATORY | | | | + + + + + | [facility] | [address] | [place] | | | [facility] | | [id number] | | | - LABORATORY | | | | + + + + + Blood Gas, Arterial (04/15/2011 12:18 AM PDT) + + + + + + | Component | Value | Ref Range | Performed | Pathologist | | | | | At | Signature | + + + + + + | Blood Gas | ARTERIAL | | [facility] | | | Sample Type | | | [facility] | | | | | | [facility] | | | | | | CENTER - | | | | | | LABORATORY | | + + + + + + | Blood Gas | RRA | | [facility] | | | Sample Site | | | [facility] | | | | | | [facility] | | | | | | CENTER - | | | | | | LABORATORY | | + + + + + + | Yury | PASSED | | [facility] | | | | | | [facility] | | | | | | [facility] | | | | | | CENTER - | | | | | | LABORATORY | | + + + + + + | FiO2 | 21.00 | | [facility] | | | | | | [facility] | | | | | | [facility] | | | | | | CENTER - | | | | | | LABORATORY | | + + + + + + | Comment | 18 | | [facility] | | | | | | [facility] | | | | | | [facility] | | | | | | CENTER - | | | | | | LABORATORY | | + + + + + + | Pulse | 96 | % | [facility] | | | Oximetry | | | [facility] | | | | | | [facility]ICAL | | | | | | CENTER - | | | | | | LABORATORY | | + + + + + + | Patient | 37.0 | | [facility] | | | Temperature | | | [facility] | | | | | | MEDICAL | | | | | | CENTER - | | | | | | LABORATORY | | + + + + + + | pH, | 7.386 | 7.350 - 7.450 | [facility] | | | Arterial | | | [facility] | | | | | | MEDICAL | | | | | | CENTER - | | | | | | LABORATORY | | + + + + + + | pCO2, | 46.0 (H) | 35.0 - 45.0 | [facility] | | | Arterial | | mmHg | [facility] | | | | | | MEDICAL | | | | | | CENTER - | | | | | | LABORATORY | | + + + + + + | pO2, | 71.0 | 60.0 - 90.0 | [facility] | | | Arterial | | mmHg | [facility] | | | | | | MEDICAL | | | | | | CENTER - | | | | | | LABORATORY | | + + + + + + | pH Temp | 7.386 | 7.350 - 7.450 | [facility] | | | Corrected, | | | [facility] | | | Arterial | | | MEDICAL | | | | | | CENTER - | | | | | | LABORATORY | | + + + + + + | pCO2 Temp | 46.0 (H) | 35.0 - 45.0 | [facility] | | | Corrected | | mmHg | [facility] | | | | | | MEDICAL | | | | | | CENTER - | | | | | | LABORATORY | | + + + + + + | pO2 Temp | 71.0 | 60.0 - 90.0 | [facility] | | | Corrected | | mmHg | [facility] | | | | | | MEDICAL | | | | | | CENTER - | | | | | | LABORATORY | | + + + + + + | HCO3, | 27.6 | 22.0 - 28.0 | [facility] | | | Arterial | | | [facility] | | | | | | MEDICAL | | | | | | CENTER - | | | | | | LABORATORY | | + + + + + + | Base | 2.0 | -2.0 to 2.0 | [facility] | | | Excess, | | | [facility] | | | Arterial | | | MEDICAL | | | | | | CENTER - | | | | | | LABORATORY | | + + + + + + | O2 | 94.0 | 90.0 - 100.0 % | [facility] | | | Saturation, | | | [facility] | | | Arterial | | | MEDICAL | | | | | | CENTER - | | | | | | LABORATORY | | + + + + + + | Comment 1 | ISTAT | | [facility] | | | | | [...] + | [facility] | [address] | [place], [place] | [phone] | | [facility] | | [address] | | | - LABORATORY | | | | + + + + + | [facility] | [address] | [place] | | | [facility] | | [address] | | | - LABORATORY | | | | + + + + + Lactic Acid (04/14/2011 11:43 PM PDT) + +-------+ + + + | Component | Value | Ref Range | Performed | Pathologist | | | | | At | Signature | + +-------+ + + + | Lactate, | 0.7 | 0.5 - 2.2 | [facility] | | | Serum | | mmol/L | [facility] | | | | [...] + | [facility] | [address] | [place] | [phone] | | [facility] | | [address] | | | - LABORATORY | | | | + + + + + | [facility] | [address] | [place] | | | [facility] | | [id number] | | | - LABORATORY | | | | + + + + + CT Maxillofacial w Contrast (04/14/2011 10:57 PM PDT) + + | Specimen | + + | | + + + + + | Narrative | Performed At | + + + | [facility] Diagnostic Imaging Department | [facility] | | [address] [facility] | [facility] | | CT MAXILLOFACIAL TMJ WITH IV | DIAG IMG | | CONTRAST, 04/14/2011 CLINICAL HISTORY: FACIAL AND EAR SWELLING. | | | TECHNIQUE: Imaging performed through the facial soft tissues | | | following the uneventful intravenous administration of 80 mL of | | | Isovue 370. FINDINGS: Visible portion of the intracranial | | | contents is grossly unremarkable although limited due to the | | | tailored exam for facial soft tissues. There is extensive | | | left facial soft tissue swelling that does surround the external | | | auditory canal. This extends caudad to the level of the mandible and | | | may be incompletely visualized across the submental region. | | | Throughout this area of subcutaneous edema there is no definable | | | fluid collection to suggest an abscess. There are somewhat | | | phlegmonous changes overlying the masseter extending along the | | | temporalis muscle. There is some ill-definition of the anterior | | | margin of the left parotid gland. No visible radiopaque foreign | | | bodies or subcutaneous air. No bony changes. Mildly enlarged | | | lymph nodes are present on the left slightly asymmetric to the | | | right. These are likely reactive. 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 There is preservation of the | | | deep spaces of the neck including normal parapharyngeal fat. The | | | nasopharyngeal, oropharyngeal, hypopharyngeal and laryngeal soft | | | tissues are symmetric. The epiglottis appears normal. The | | | vallecula and pre-vallecular fat are intact. Vocal cords are not | | | visualized on this exam. Vasculature is grossly patent. | | | Lobular soft tissue densities are present in the maxillary sinus | | | with some mucoperiosteal thickening diffusely. There is some minor | | | involvement of the ethmoid air cells. The sphenoid and frontal | | | sinuses are clear. Surgical changes consistent with prior | | | mastoidectomy is present bilaterally. There is aeration in the | | | surgical cavity on the right and soft tissue attenuation and a small | | | focus of air in the cavity on the left. It would be difficult to | | | exclude the possibility of some of the inflammatory changes or | | | swelling on the left face possibly involving this region or | | | emanating from the region of the mastoid air cells. There is | | | dehiscence along the left sigmoid sinus and the tegmen tympany | | | around the abnormlity in the left mastoid. The globes and | | | retroconal contents are intact and unremarkable. There are no | | | acute osseous abnormalities. The osteomeatal units are patent. No | | | significant septal deviation or spurring. IMPRESSION: 1. | | | EXTENSIVE LEFT FACIAL SOFT TISSUE SWELLING WITH SOMEWHAT | | | PHLEGMONOUS-LIKE CHANGES BUT NO DEFINABLE ABSCESS. THE EXTENT IS | | | FROM THE LEVEL OF THE MANDIBLE TO SURROUND THE EXTERNAL AUDITORY | | | CANAL. THESE CHANGES ARE SEEN IN ASSOCIATION WITH MILD | | | LYMPHADENOPATHY, LIKELY REACTIVE. GIVEN THE CHANGES IN THE LEFT | | | MASTOID REGION, WHICH APPEARS AT LEAST IN PART POSTSURGICAL, | | | INVOLVEMENT AND/OR EXTENSION FROM THE LEFT MASTOID REGION CANNOT BE | | | EXCLUDED. ALSO NOTABLE IN THE REGION OF THE LEFT MASTOID CAVITY IS | | | AN AREA OF DEHISCENCE ALONG THE SIGMOID SINUS AND THE TEGMEN | | | TYMPANY. ALL OF THESE FINDINGS ALTOGETHER ARE CONCERNING FOR | | | PROBABLE INFECTIOUS PROCESS INVOLVING AND/OR CENTERED IN THE LEFT | | | MASTOID AND EXTENDING ALONG THE LEFT FACIAL SOFT TISSUES WITHOUT A | | | DEFINABLE ABSCESS FORMATION AT THIS TIME. NOTE: Preliminary | | | findings were conveyed by Dr. Mariscal on 04/15/2011 at 1:12 a.m. | | | central time. Dictated Date/Time: 04/15/2011 08:52 | | | Transcribed Date/Time: 04/15/2011 11:25 Quarantine Inspector: | | | <Electronically Signed by Juwan Jin MD> 04/15/11 3600 | | + + + + + | Procedure Note | + + | Melquiades, Rad Conversion - 12/17/2013 3:05 PM [facility] | | Diagnostic Imaging Department | | [address] [facility] | | | | | | | | CT MAXILLOFACIAL TMJ WITH IV CONTRAST, 04/14/2011 | | | | CLINICAL HISTORY: FACIAL AND EAR SWELLING. | | | | TECHNIQUE: Imaging performed through the facial soft tissues following the | | uneventful intravenous administration of 80 mL of Isovue 370. | | | | FINDINGS: Visible portion of the intracranial contents is grossly | | unremarkable although limited due to the tailored exam for facial soft tissues. | | | | | | There is extensive left facial soft tissue swelling that does surround the | | external auditory canal. This extends caudad to the level of the mandible and | | may be incompletely visualized across the submental region. Throughout this | | area of subcutaneous edema there is no definable fluid collection to suggest an | | abscess. There are somewhat phlegmonous changes overlying the masseter | | extending along the temporalis muscle. There is some ill-definition of the | | anterior margin of the left parotid gland. No visible radiopaque foreign | | bodies or subcutaneous air. No bony changes. | | | | Mildly enlarged lymph nodes are present on the left slightly asymmetric to the | | right. These are likely reactive. There appears to be hypoplasia of the right | | submandibular gland. There is preservation of the deep spaces of the neck | | including normal parapharyngeal fat. The nasopharyngeal, oropharyngeal, | | hypopharyngeal and laryngeal soft tissues are symmetric. The epiglottis | | appears normal. The vallecula and pre-vallecular fat are intact. Vocal cords | | are not visualized on this exam. | | | | Vasculature is grossly patent. Lobular soft tissue densities are present in | | the maxillary sinus with some mucoperiosteal thickening diffusely. There is | | some minor involvement of the ethmoid air cells. The sphenoid and frontal | | sinuses are clear. Surgical changes consistent with prior mastoidectomy is | | present bilaterally. There is aeration in the surgical cavity on the right and | | soft tissue attenuation and a small focus of air in the cavity on the left. It | | would be difficult to exclude the possibility of some of the inflammatory | | changes or swelling on the left face possibly involving this region or | | emanating from the region of the mastoid air cells. There is dehiscence along | | the left sigmoid sinus and the tegmen tympany around the abnormlity in the left | | mastoid. | | | | The globes and retroconal contents are intact and unremarkable. There are no | | acute osseous abnormalities. The osteomeatal units are patent. No significant | | septal deviation or spurring. | | | | IMPRESSION: | | 1. EXTENSIVE LEFT FACIAL SOFT TISSUE SWELLING WITH SOMEWHAT PHLEGMONOUS-LIKE | | CHANGES BUT NO DEFINABLE ABSCESS. THE EXTENT IS FROM THE LEVEL OF THE MANDIBLE | | TO SURROUND THE EXTERNAL AUDITORY CANAL. THESE CHANGES ARE SEEN IN ASSOCIATION | | WITH MILD LYMPHADENOPATHY, LIKELY REACTIVE. GIVEN THE CHANGES IN THE LEFT | | MASTOID REGION, WHICH APPEARS AT LEAST IN PART POSTSURGICAL, INVOLVEMENT AND/OR | | EXTENSION FROM THE LEFT MASTOID REGION CANNOT BE EXCLUDED. ALSO NOTABLE IN THE | | REGION OF THE LEFT MASTOID CAVITY IS AN AREA OF DEHISCENCE ALONG THE SIGMOID | | SINUS AND THE TEGMEN TYMPANY. ALL OF THESE FINDINGS ALTOGETHER ARE CONCERNING | | FOR PROBABLE INFECTIOUS PROCESS INVOLVING AND/OR CENTERED IN THE LEFT MASTOID | | AND EXTENDING ALONG THE LEFT FACIAL SOFT TISSUES WITHOUT A DEFINABLE ABSCESS | | FORMATION AT THIS TIME. | | | | NOTE: Preliminary findings were conveyed by Dr. Mariscal on 04/15/2011 at 1:12 | | a.m. central time. | | | | Dictated Date/Time: 04/15/2011 08:52 | | Transcribed Date/Time: 04/15/2011 11:25 | | Quarantine Inspector: | | <Electronically Signed by Juwan Jin MD> 04/15/11 1740 | + + + +---------+ + + | Performing | Address | City/State/Zipcode | Phone Number | | Organization | | | | + +---------+ + + | [facility] | | | | | [place] | | | | + +---------+ + + documented in this encounter Visit Diagnoses Not on filedocumented in this encounter"
--- OUTSIDE RECORDS SUMMARY | ~2020-06-05 | XMS | Encounter Summary ---
Demographics + + + | Address | [address] | | | [place] [address] | + + + | Home Phone [...] Providers + +------+ + | Care Assistant Engineer Name | Role | Phone | [...] | [address] | Reena Carrasco [place], | | | | | Mailcode: [id number] | [place] [address] | | | | | [facility] | [phone] | | | | | [place], [place] | | | | | | [address] | | | | | | [phone] | | | +--------+ + + + [...]
--- OUTSIDE RECORDS SUMMARY | ~2020-06-05 | XMS | Encounter Summary ---
Demographics + + + | Address | [address] | | | [place] [address] | + + + | Home Phone | | + + + | Preferred Language | Unknown | + + + | Marital Status | Single | + + + | Pentecostalism Affiliation | Unknown | + + + | Race | Unknown | + + + | Ethnic Group | Unknown | + + + Author + + + | Author | [facility] | | | and [place] | + + + | Organization | [facility] | | | and [place] [...] Team Providers + +------+ + | Care Bridal Sales Consultant Name | Role | Phone | + +------+ + PCP | Unavailable | + +------+ + Encounter Details +--------+ + + + + | Date | Type | Department | Care Team | Description | +--------+ + + + + | 08/25/ | [facility] | [facility] | Aditi Ortiz | | | 2009 | Encounter | [facility] | MD Bradford Barnes | | | | | Z[address] | [facility], | | | | | [place] | [place] [address] | | | | | [address] | [phone] | | | | | [phone] | | | +--------+ + + + [...]
--- OUTSIDE RECORDS SUMMARY | ~2020-06-05 | XMS | Encounter Summary ---
Demographics + + + | Address | [address] | | | [place] [address] | + + + | Home Phone [...] Team Providers + +------+ + | Care Boarding House Manager Name | Role | Phone | [...] | | [facility] | Reena Carrasco [place], | | | | | Mailcode: [id number] | [place] [address] | | | | | [facility] | [phone] | | | | | [place], [place] | | | | | | [address] | | | | | | [phone] | | | +--------+ + + + [...]
--- OUTSIDE RECORDS SUMMARY | ~2020-06-05 | XMS | Encounter Summary ---
Demographics + + + | Address | [address] | | | [place] [address] | + + + | Home Phone | | + + + | Preferred Language | Unknown | + + + | Marital Status | Single | + + + | Confucianism Affiliation | Unknown | + + + [...] Team Providers + +------+ + | Care Silo Filler Name | Role | Phone | + [...] | | [address] | Reena Carrasco [place], | | | | | Mailcode: [id number] | [place] [address] | | | | | [facility] | [phone] | | | | | [place], [place] | | | | | | [address] | | | | | | [phone] | | | +--------+ + + + [...]
--- OUTSIDE RECORDS SUMMARY | ~2020-06-05 | XMS | Encounter Summary ---
Demographics + + + | Address | [address] | | | [place] [address] | + + + | Home Phone [...] Author + + + | Author | [facility] | + + + | Organization | [facility] | + + + | Address | Unknown | + + + | Phone | Unavailable | + + + Support + + +---------+ + | Name | Relationship | Address | Phone | + + +---------+ + | Skyler Todd | ECON | Unknown | | + + +---------+ + Care Team Providers + +------+ + | Care Internet Ecommerce Specialist Name | Role | Phone | [...] | | [facility] | Reena Carrasco [place], | | | | | Mailcode: [id number] | [place] [address] | | | | | [facility] | [phone] | | | | | [place], [place] | | | | | | [address] | | | | | | [phone] | | | +--------+ + + + [...]
--- OUTSIDE RECORDS SUMMARY | ~2020-06-05 | XMS | Encounter Summary ---
Demographics + + + | Address | [address] | | | [place] [address] | + + + | Home Phone | | + + + | Preferred Language | Unknown | + + + | Marital Status | Single | + + + | Adventist Affiliation | Unknown | + + + | Race | Unknown | + + + | Ethnic Group | Unknown | + + + Author + + + | Author | [facility] | | | and [place] | + + + | Organization | [facility] | | | and [place] [...] Providers + +------+ + | Care Special Education Curriculum Specialist Name | Role | Phone | + +------+ + PCP | Unavailable | + +------+ + Encounter Details +--------+ + + + + | Date | Type | Department | Care Team | Description | +--------+ + + + + | 02/03/ | Emergency | [facility] | Kemal Miller, | Foreign body of ear, | | 2012 | | MEDICAL CENTER | MD [address] | right; Back spasm | | | | EMERGENCY CENTER | [place] [address] | | | | | [address] | [phone] | | | | | [place], [place] | | | | | | [address] | | | | | | [phone] | | | +--------+ + + + [...] | three daily | | 0 | 09/13/20 | | | (AMOXIL) 500 MG | [...] documented as of this encounter ED Notes Kemal Miller MD - 02/03/2013 9:58 PM PDTFormatting of this note might be different fro m the original. ED Provider Notes by Kemal Miller MD at 02/03/132157 Author: Kemal Miller MD Service: (none) Author Type: Physician Filed: 02/03/13 7639 Date of Service: 02/03/132157 Status: Signed Triage Clinician: Kemal Miller MD (Physician) Procedure Orders: 1. Foreign body removal [[id number]] ordered by Kemal Miller MD at 02/03/13 2201 [facility] Department of Emergency Medicine History of Present Illness Patient Identification Pavan Anderson is a 47 y.o. male. Patient information was obtained from patient. History/Exam limitations: none. Patient presented to the Emergency Department by: Car Chief Complaint Chief Complaint Patient presents with Foreign Body in Ear back pain The patient presents with a complaint of injury to right ear, FB in ear. The injury occurr ed today. The mechanism of injury was using Q tip, end of cotton broke off. The severity o f the patient s discomfort is moderate in ear. The patient has had the following associa leobardo symptoms: pain back, says he strained his back trying to get the cotton out of his ear. Has chornic back pain, but does not have his medications here because [facility].. The following pre-hospital care has been provided: trial of removal, not helping. JEROME YOUNG Past Medical History Diagnosis Date HIV (human immunodeficiency virus infection) Muscle spasms of neck Past Surgical History Procedure Date Tonsillectomy Fistula repair Prior to Admission medications Not on File No Known Allergies History Social History Marital [...] history. Review of Systems Constitutional: Negative for: fever, chills, fatigue, sweats or weight loss Eyes: Negative for: decreased vision or irritated eyes Nose: Negative for: nosebleed Throat: Negative for: mouth sores Cardiovascular/Respiratory: Negative for: chest pain, shortness of breath, cough Gastrointestinal: Negative for: abdominal pain, vomiting, diarrhea Genitourinary: Negative for: dysuria, hematuria, urinary problems Musculoskeletal: Negative for: myalgias and arthralgias Skin: Negative for: rash or lesion Neuro and psych: Negative for: fainting, seizure, ataxia Endocrine/Heme/Lymph: Negative for: swollen lymph nodes, easy bruising All systems reviewed and otherwise negative Physical Exam BP 139/97 | Pulse 103 | Temp(Src) 96.7 F (35.9 C) (Temporal) | Resp 20 | Ht 1.753 m (5' 9") | Wt 90.719 kg (200 lb) | BMI 29.53 kg/m2 | SpO2 97% Vital signs reviewed and significant for tachycardian Pulse Oximetry interpretation: normal General: Alert, oriented, no distress Eyes: Normal inspection, pupils equal and round, non-icteric ENT: Ears right canal FB, cotton swab tip, no canal erythema or bleeding, TM normal (after removal) Nose normal Pharynx normal Neck: Supple, nontender C spine, full nontender ROM Cardiovascular: Regular rate and rhythm, no murmurs Respiratory: Lungs clear, chest nontender, no distress Abdomen: Soft, nontender, no injuries Extremities: Nontender, no deformities or injuries Back: Nontender spine, full ROM, tender right upper soft tissues. Skin: Intact, normal color Neuro: Alert, no confusion Motor intact Medical Decision Making and Emergency Department Course Back pain normal neuro I find that the patient has back pain but no signs of an emergent condition. There is no e vidence of spinal cord compression, no signs of cauda equina syndrome, no evidence of an epi dural abscess, and no signs of an emergent cause of the pain. I will treat the patient symp tomatically and subsequently have them follow up with their PMD. Foreign body in ear removed. ED Department Course Records Reviewed Old medical records. ED Diagnoses Final diagnoses Foreign body of ear, right Back spasm Disposition: ED Disposition Orders Discharge Condition at discharge: Stable Follow-up Information Follow up With Details Comments Contact Info [facility] As needed [address] [place] [address] Jerome Young MD Discharge Medications: New Prescriptions No new medications Additional Documentation Foreign Body Date/Time: 02/03/2013 10:01 PM Performed by: KEMAL MILLER Authorized by: KEMAL MILLER Body area: ear Location details: right ear Localization method: visualized Removal mechanism: forceps Complexity: simple 1 objects recovered. Objects recovered: cotton swab tip Post-procedure assessment: foreign body removed Patient tolerance: Patient tolerated the procedure well with no immediate complications. Kemal Miller MD 02/03/13 4410 documented in this e ncounter Plan of Treatment Not on filedocumented as of this encounter Visit Diagnoses + + | Diagnosis | + + | Foreign body of ear, right Foreign body in ear | + + | Back spasm Other symptoms referable to back | + + documented in this encounter
--- OUTSIDE RECORDS SUMMARY | ~2020-06-05 | XMS | Encounter Summary ---
Demographics + + + | Address | [address] | | | [place] [address] | + + + | Home Phone | | + + + | Preferred Language | Unknown | + + + | Marital Status | Single | + + + | Presybeterian Affiliation | Unknown | + + + | Race | Unknown | + + + | Ethnic Group | Unknown | + + + Author + + + | Author | [facility] | | | and [place] | + + + | Organization | [facility] | | | and [...] Team Providers + +------+ + | Care Ob/Gyn Physician Name | Role | Phone | + +------+ + | Jerome Young MD | PCP | | + +------+ + Encounter Details +--------+ + + + + | Date | Type | Department | Care Team | Description | +--------+ + + + + | 07/17/ | Emergency | [facility] | Randall Garcia | Conjunctivitis of | | 2014 | | MEDICAL CENTER | DO [address] | both eyes; Chronic | | | | [facility]Y [facility] | [address] | arthralgias of knees | | | | [address] | [place] [address] | and hips, | | | | [place], [place] | [phone] | unspecified | | | | [address] | | laterality | | | | [phone] | | | +--------+ + + + [...] documented as of this encounter ED Notes Randall Garcia DO - 07/17/2014 8:52 PM PDTFormatting of this note might be differen t from the original. ED Provider Notes by Randall Garcia DO at 07/17/142051 Author: Randall Garcia DO Service: Free Standing ED Author Type: Physician Filed: 07/18/14 0352 Date of Service: 07/17/142051 Status: Signed Detective Captain: Randall Garcia DO (Physician) [facility] Department of Emergency Medicine 3:52 AM History of Present Illness Patient Identification Pavan Anderson is a 48 y.o. male. Patient information was obtained from patient. History/Exam limitations: none. Patient presented to the Emergency Department by: Car Chief Complaint Chief Complaint Patient presents with Joint Pain Rash Eye Problem right The patient presents for evaluation of joint pain, rash and eye discomfort. He states that the joint pain and rash have been ongoing for 2 weeks and that he is currently being treate d by his primary care team for these symptoms. The eye pain developed last night and has wo rsened throughout the day. He states that it feels like sandpaper when he closes his eyes a nd has noted that he has bilateral discharge from the eyes. He denies any fevers or associa leobardo cough or cold symptoms. He states that the symptoms are worsened when he closes his eye s and he has not found anything that improves his symptoms. He describes them to be of mild to moderate severity, and care prior to arrival consisted of home care without any signific ant relief. He has also been taking his prescribed medications as directed without missing any doses. Past Medical History Diagnosis Date HIV (human [...] Shortness of Breath. 09/28/13 09/28/14 WANDA Wheatley cimetidine (TAGAMET) 300 MG tablet Take 1 tablet by mouth 2 (two) times daily. 07/12/14 5 WANDA Michelle citalopram (CELEXA) 40 MG tablet take 1 tablet by mouth once daily 06/25/14 WANDA Luther ams clonazePAM (KLONOPIN) 0.5 MG tablet Take 1 tablet by mouth 2 (two) times daily as needed. WANDA Jenkins Darunavir Ethanolate 800 MG TABS Take 800 [...] as needed for Pain. 07/01/14 07/11/14 WANDA Jenikns naproxen (NAPROSYN) 500 MG tablet Take 0.5 tablets by mouth 3 (three) times daily with meal s. For pain 06/28/14 07/28/14 Leo West DO nystatin (MYCOSTATIN) 238570 UNIT/ML suspension Take 2 mLs by mouth 4 (four) times daily. 07/22/14 WANDA Michelle ritonavir (NORVIR) 100 MG TABS tablet Take 100 mg by mouth daily. 03/16/14 03/16/15 Zita vazquez MD traMADol (ULTRAM) 50 MG tablet Take 1 tablet by mouth every 6 (six) hours as needed for Tru n. 07/13/14 07/23/14 WANDA Cary No Known Allergies History Social [...] No pertinent family history. Review of Systems Review of Systems Constitutional: Negative for fever and chills. HENT: Negative for ear pain and neck pain. Eyes: Positive for pain, discharge and redness. Negative for blurred vision and double visi on. Gastrointestinal: Negative for nausea and vomiting. Musculoskeletal: Positive for joint pain. Negative for back pain. Neurological: Negative for headaches. All other systems reviewed and are negative. Physical Exam BP 131/78 | Pulse 112 | Temp(Src) 98.3 F (36.8 C) (Oral) | Resp 16 | Ht 1.727 m (5' 7.9 9") | Wt 91.173 kg (201 lb) | BMI 30.57 kg/m2 | SpO2 97% Vital signs interpretation: Tachycardic, otherwise normal Pulse Oximetry interpretation: Normal Gen: A&Ox3, well-appearing, no acute distress Head: Normocephalic, no apparent injury noted Eyes: Bilateral erythema with exudate, no scleral icterus Ears: No swelling or erythema, no drainage noted Nose: no rhinorrhea, no epistaxis Mouth: no apparent dysfunction, no gross injury Neck: Supple, no meningismus, no obvious swelling or mass CV: RRR, no murmurs, rubs or clicks Resp: No respiratory distress, no retractions, lungs CTA bilaterally Abd: Round, no distension Ext: normal ROM of bilateral upper and lower extremities, no joint swelling, no deformitie s, no joint swelling but mild tenderness to palpation of the wrist and elbow joints Back: normal ROM, no deformity noted Skin: Diffuse maculopapular rash on the upper trunk and extremities, normal color, warm, dr degroot : Deferred Rect: Deferred Neuro: no focal neurological deficits noted, cerebellum normal as tested, no sensory or mot or deficiencies noted Psych: normal affect, no emotional distress noted, mentation is appropriate for age Medical Decision Making and Emergency Department Course ED Department Course The patient comes in due to concerns about an eye infection. The patient is HIV positive a nd he is currently on an appropriate antiviral regimen. He is currently also being treated for oral thrush and for a chronic rash and chronic joint pain. His primary care team has ev aluated him for those symptoms but the eyes complaints just began last night. He has not no leobardo anything that he has done that has worsened her symptoms. The patient reports that he h as not been started on any steroid medications to treat the joint pain, I will provide a pre scription for some oral steroids to see if that can provide some relief of his joint pain. I will also provide a prescription for anti-inflammatory pain medications to assist with the joint pain. A provide a prescription also for eye drops and have encouraged him to follow up with his primary care team for reevaluation and further treatment as deemed necessary by the primary care team. Patient is stable for discharge. Records Reviewed Old medical records. Nursing notes. Laboratory Evaluation Results None I personally reviewed the lab results and they have been posted to the chart. Pertinent po sitive and negative findings have been addressed appropriately. Radiology and EKG Evaluation Imaging Results None ED Diagnoses Final diagnoses Conjunctivitis of both eyes Chronic arthralgias of knees and hips, unspecified laterality Disposition: ED Disposition Orders Discharge Condition at discharge: Stable Follow-up Information Follow up With Details Comments Contact Info WANDA Jenkins Schedule an appointment as soon as possible for a visit in 3 days [address] [facility] [address] [facility] [place] If symptoms worsen [address] [facility] [address] Discharge Medications: Discharge Medication List as of 07/17/2014 8:59 PM START taking these medications Details etodolac (LODINE XL) 500 MG 24 hr tablet Take 1 tablet by mouth daily., Starting 07/17/2014, Until 07/17/15, Print predniSONE (DELTASONE) 20 MG tablet Take 3 tablets by mouth daily., Starting 07/17/2014, Unti l 07/22/14, Print sulfacetamide (BLEPH-10) 10 % ophthalmic solution Apply 1 drop to eye every 6 (six) hours., Starting 07/17/2014, Until Yue 07/21/14, Print Dr. Randall Garcia D.O. Dictation software, OpenPortal, used which may contain error for similar sounding words even af ter review. Personal communication requested for any clarification. Procedures Additional Documentation Procedures Randall Garcia DO 07/18/14 0352 onversio n Transaction, Provider Unknown - 07/17/2014 8:35 PM PDTFormatting of this note might be di fferent from the original. ED Notes by Danika Proctor at 07/17/142034 Author: Danika Proctor Service: (none) Author Type: Technologist Filed: 07/17/142034 Date of Service: 07/17/142034 Status: Signed Detective Captain: Danika Proctor (Technologist) Pt given warm blanket. Danika Proctor 07/17/142034 docume nted in this encounter Plan of Treatment Not on filedocumented as of this encounter Visit Diagnoses + + | Diagnosis | + + | Conjunctivitis of both eyes Conjunctivitis, unspecified | + + | Chronic arthralgias of knees and hips, unspecified laterality | + + documented in this encounter [...]
--- OUTSIDE RECORDS SUMMARY | ~2020-06-05 | XMS | Encounter Summary ---
Demographics + + + | Address | [address] | | | [place] [address] | + + + | Home Phone [...] + + + | Author | [facility] | | | and [place] | + + + | Organization | [facility] | | | and [place] | [...] Team Providers + +------+ + | Care Child Welfare Caseworker Name | Role | Phone | + +------+ + PCP | Unavailable | + +------+ + Encounter Details +--------+ + + + + | Date | Type | Department | Care Team | Description | +--------+ + + + + | 06/16/ | [facility] | [facility] | Bryson Brady, | | | 2009 | Encounter | MED CTR EMERGENCY | [address] | | | | | CENTER [address] | [place] | | | | | [place] | [address] | | | | | [address] | | | | | | [phone] | | | +--------+ + + + [...]
--- OUTSIDE RECORDS SUMMARY | ~2020-06-05 | XMS | Encounter Summary ---
Demographics + + + | Address | [address] | | | [place] [address] | + + + | Home Phone [...] Team Providers + +------+ + | Care Proposal Consultant Name | Role | Phone | [...] | | | [address] | [facility], | | | | | Mailcode: [id number] | [place] [address] | | | | | [facility] | [phone] | | | | | [place], [place] | | | | | | [address] | | | | | | [phone] | | | +--------+--------+ + + + [...]
--- OUTSIDE RECORDS SUMMARY | ~2020-06-05 | XMS | Encounter Summary ---
Demographics + + + | Address | [address] | | | [place] [address] | + + + | Home Phone [...] Team Providers + +------+ + | Care Ballet Teacher Name | Role | Phone | [...] | | | [address] | [facility], | | | | | Mailcode: [id number] | [place] [address] | | | | | [facility] | [phone] | | | | | [place], [place] | | | | | | [address] | | | | | | [phone] | | | +--------+--------+ + + + [...]
--- OUTSIDE RECORDS SUMMARY | ~2020-06-05 | XMS | Encounter Summary ---
Demographics + + + | Address | [address] | | | [place] [address] | + + + | Home Phone [...] Team Providers + +------+ + | Care Clinical Laboratory Assistant Name | Role | Phone | + [...] | [address], [address]rd floor | | ([facility] | | | | [place], [place] | | | | | | [address] | | | | | | [phone] | | | +--------+------+ + + + [...] + + + + | [facility] DEPARTMENT OF | [address] | [place] [address] | | | PATHOLOGY | [address] [...] | + + + + + | [facility][1] | [address] | [place] [address] | | | PATHOLOGY | [address] [...] At | + + + | [facility] | [facility] | | [place] [address] | REGIONAL | | [place] [address] | LABORATORY | + + + + + + + + | Performing | Address | City/State/Zipcode | Phone Number | | Organization | | | | + + + + + | [facility] | [address] | [place] [address] | | | LABORATORY | | | [...] | + + + + + | [facility][1] | [address] | [place] [address] | | | PATHOLOGY | [address] | | | + + + + + HIV QUANTITATIVE PCR, PLASMA (01/21/2012 12:27 PM PDT) + + + + + + | Component | Value | Ref Range | Performed | Pathologist | | | | | At | Signature | + + + + + + | HIV-QNT PCR | 98 | copies/mL | [facility] | | | | | | DIAGNOSTIC [...] [place] | [address] | [place] [address] | | | DIAGNOSTIC | [address] [...] | | | DEPARTMENT | | | [facility] | | | OF | | | [...] | + + + + + | [facility][1] | [address] | [place] [address] | | | PATHOLOGY | [address] [...] | + + + + + | [facility][1] | [address] | [place] [address] | | | PATHOLOGY | [address] [...] | + + + + + | [facility][1] | [address] | [place] [address] | | | PATHOLOGY | [address] [...] | + + + + + | [facility][1] | [address] | [place] [address] | | | PATHOLOGY | [address] | | | + + + + + documented in this encounter Visit Diagnoses + + | Diagnosis | + + | HIV (human immunodeficiency virus infection) (HCC) Asymptomatic human | | immunodeficiency virus (HIV) infection status | + + documented in this encounter"
--- OUTSIDE RECORDS SUMMARY | ~2020-06-05 | XMS | Encounter Summary ---
Demographics + + + | Address | [address] | | | [place] [address] | + + + | Home Phone [...] Team Providers + +------+ + | Care Bone Char Puller Name | Role | Phone | + +------+ + | Jerome Young MD | PCP | | + +------+ + Encounter Details +--------+ + + + + | Date | Type | Department | Care Team | Description | +--------+ + + + + | 03/27/ | Orders Only | [facility] | Faustina Henao MD | | | 2010 | | at [facility] | [address] | | | | | [address] | [facility], | | | | | Loop Physician's | [place] [address] | | | | | [facility], [facility] | [phone] | | | | | [place], [place] | | | | | | [address] | | | | | | [phone] | | | +--------+ + + + [...]
--- OUTSIDE RECORDS SUMMARY | ~2020-06-05 | XMS | Encounter Summary ---
Demographics + + + | Address | [address] | | | [place] [address] | + + + | Home Phone [...] + + + | Author | [facility] | | | and [place] | + + + | Organization | [facility] | | | and [place] | + [...] Team Providers + +------+ + | Care Patch Machine Operator Name | Role | Phone | + +------+ + | Jerome Young MD | PCP | | + +------+ + Encounter Details +--------+ + + + + | Date | Type | Department | Care Team | Description | +--------+ + + + + | 08/03/ | Emergency | [facility] | Quinton Miller, | Cellulitis of right | | 2013 - | | [facility] | MD Myke CHAUDHARI | foot | | | | [facility] [place] | [place] [address] | | | 08/04/ | | [address] | [phone] | | | 2012 | | [place] | | | | | | [id number] | | | | | | [phone] | | | +--------+ + + + [...] ED Notes Conversion Transaction, Provider Unknown - 08/04/2013 12:53 AM PDTFormatting of this note m ight be different from the original. ED Notes by Jaya Barney RN at 08/04/1352 Author: Jaya Barney RN Service: (none) Author Type: Registered Nurse Filed: 08/04/1352 Date of Service: 08/04/1352 Status: Signed Risk Lead: Jaya Barney RN (Registered Nurse) Tori Barney RN 08/04/1352 Quinton Lewis MD - 08/04/2013 12:03 AM PDTFormatting of this note might be different from the o riginal. ED Provider Notes by Quinton Miller MD at 08/04/13 0003 Author: Quinton Miller MD Service: (none) Author Type: Physician Filed: 08/04/13 0108 Date of Service: 09/25/13 0003 Status: Signed Risk Lead: Quinton Miller MD (Physician) [facility] Department of Emergency Medicine History of Present Illness Patient Identification Slava Anderson is a 47 y.o. male. Patient information was obtained from patient. History/Exam limitations: none. Patient presented to the Emergency Department by: Car Chief Complaint Chief Complaint Patient presents with Toe Injury The patient complains of right foot pain. Onset of symptoms was today, with a consotnat cou rse since that time. The symptoms are described to be of severe severity. The patient desc ribes the quality and location of the symptoms as the following: pain right distal midfoot, with swelling, no injujries, but has some foot fungus and he cut his toenails yesterday. Th e patient also complains of incrased pain with walking. Also has worsening of his back pain s, out of his flexeril. Care prior to arrival consisted of hydrocodone, with partial relief. PCP: KARIN KENNY Past Medical History Diagnosis Date HIV (human immunodeficiency virus infection) Muscle spasms of neck Hyperlipidemia Cholelithiasis COPD (chronic obstructive pulmonary disease) Chronic mastoiditis Multiple joint pain 05/14/2013 Past Surgical History Procedure Date Tonsillectomy Fistula [...] times daily as needed fo r Anxiety. 07/07/13 08/06/13 WANDA Cary Darunavir Ethanolate 800 MG TABS [...] every 8 (eig ht) hours as needed. 07/07/13 08/04/13 WANDA Cary ritonavir (NORVIR) 100 MG TABS tablet Take 100 mg by mouth daily. 05/19/13 05/19/14 Zita Enriquez MD tadalafil (CIALIS) 5 MG tablet Take 5 mg by mouth as needed. Historical Provider No Known Allergies History Social History Marital [...] reviewed and otherwise negative Physical Exam BP 146/91 | Pulse 95 | Temp 97.6 F (36.4 C) | Resp 16 | Ht 1.753 m (5' 9") | Wt 92.987 kg (205 lb) | BMI 30.27 kg/m2 | SpO2 99% Vital signs reviewed and normal Pulse Oximetry interpretation: normal General: Alert, in no apparent distress Eyes: Normal inspection, pupils equal and round, non-icteric ENT: Ears normal Nose normal Pharynx normal Neck: Normal inspection Supple No lymphadenopathy No meningismus Cardiovascular: Rate and rhythm normal No murmurs Respiratory: Breath sounds normal bilaterally Abdomen: Soft, non-tender, non-distended No guarding or rebound Genitourinary: Deferred Rectal exam: Deferred Back: Normal inspection Extremities: Right foot,m moderate tenderness and swelling and erythema distal dorsal right foot. No ecchymosis. Small patch of dorsal foot fungal dermatitis. Skin: Color normal Warm and dry No rash Neuro: No motor deficit No sensory deficit No confusion Medical Decision Making and Emergency Department Course Cellulitis, outpatient treatment This patient presents with cellulitis and no palpable abscess that can be incised/drained. The patient is an appropriate candidate for outpatient management. The patient is well appe aring, non-toxic, has no systemic signs or symptoms (fever, vomiting, chills), has no murmur or indication of endocardititis, the area of cellulitis involves <50% of the extremity, is not over a joint or surgical hardware, and the patient has no history of immunosuppression o r other co-morbid medical conditions that warrant inpatient treatment. The patient will nee d to return here for a re-check within the next 48 hours to assess for resolution or progres brett of the cellulitis. The patient understands that if the cellulitis worsens, they may ne ed admission to the hospital. ED Department Course Records Reviewed Old medical records. Laboratory Evaluation Labs Reviewed - No data to display Results No Results found for the last 72 hours. Available Labs reviewed and interpreted by me. Radiology Evaluation Imaging Results XR Foot Right AP Lateral and Oblique (Preliminary result) Result time:08/04/1344 ED Interpretation Documented by Quinton Miller MD (08/04/1344, [facility] Emergency Dep[facility] tment [facility]) This ED initial read occurred during the ED course and management. The ED interpretation at the time the patient was being clinically managed, and prior to the radiology final read interpretation was: no fracture, no dislocation, no soft tissue swelling or abnormalities, no soft tissue foreign bodies identified. Available radiology studies reviewed and interpreted contemporaneously by me. ED Diagnosis Final diagnosis Cellulitis of right foot Disposition: ED Disposition Discharge Condition at discharge: Stable Follow-up Information Follow up With Details Comments Contact Info Karin Kenny WANDA [address] [facility] [id number] Discharge Medications: New Prescriptions CEPHALEXIN (KEFLEX) 500 MG CAPSULE Take 1 capsule by mouth 4 (four) times daily. CYCLOBENZAPRINE (FLEXERIL) 10 MG TABLET Take 1 tablet by mouth every 8 (eight) hours as needed for Muscle spasms. Additional Documentation Procedures Quinton Miller MD 08/04/13 0108 documented in this e ncounter Plan of Treatment Not on filedocumented as of this encounter Procedures + +--------+ + + + | Procedure Name | Priori | Date/Time | Associated Diagnosis | Comments | | | ty | | | | + +--------+ + + + | XR FOOT RIGHT 3 + VW | Routin | 08/04/2013 | | Results for this | | | e | 12:43 AM | | procedure are in the | | | | PDT | | results section. | + +--------+ + + + documented in this encounter Results XR Foot Right 3 + Vw (08/04/2013 12:43 AM PDT) + + | Specimen | + + | | + + + + + | Impressions | Performed At | + + + | 1. Negative for fracture or dislocation. | | + + + + + + | Narrative | Performed At | + + + | [facility] XR FOOT RIGHT HISTORY: 47 years. Male. Pain. | | | TECHNIQUE: 3 views right foot. COMPARISON: None. FINDINGS: | | | Small superior calcaneal spur. The osseous structures are well | | | mineralized without evidence of fracture or dislocation. | | + + + + + | Procedure Note | + + | Amaury Arnett - 07/02/2019 5:48 PM PDT [facility] HISTORY:47 | | years. Male. Pain. TECHNIQUE:3 views right foot. COMPARISON:None. FINDINGS:Small | | superior calcaneal spur. The osseous structures are well mineralized without evidence of | | fracture or dislocation. IMPRESSION: 1. Negative for fracture or dislocation. | | | | | |TECHNIQUE: | |3 views right foot. | | | |COMPARISON: | |None. | | | |FINDINGS: | |Small superior calcaneal spur. The osseous structures are well mineralized without evidence of fracture or dislocation. | | | |IMPRESSION: | |1. Negative for fracture or dislocation. | | | | | + + documented in this encounter Visit Diagnoses + + | Diagnosis | + + | Cellulitis of right foot Cellulitis and abscess of foot, except toes | + + documented in this encounter
--- OUTSIDE RECORDS SUMMARY | ~2020-06-05 | XMS | Encounter Summary ---
Demographics + + + | Address | [address] | | | [place] [address] | + + + | Home Phone | | + + + | Preferred Language | Unknown | + + + | Marital Status | Single | + + + | Christian Affiliation | Unknown | + + + | Race | Unknown | + + + | Ethnic Group | Unknown | + + + Author + + + | Author | [facility] | | | and [place] | + + + | Organization | [facility] | | | and [place] [...] Providers + +------+ + | Care Manager Proposal Name | Role | Phone | + +------+ + | Jerome Young MD | PCP | | + +------+ + Encounter Details +--------+ + + + + | Date | Type | Department | Care Team | Description | +--------+ + + + + | 09/19/ | Emergency | [facility] | Quinton Bledsoe | Cellulitis of nasal | | 2015 | | MEDICAL [facility]ENTER | Med [address] | tip; Multiple joint | | | | EMERGENCY CENTER | [address] | pain; HIV (human | | | | [address] | [place], [place] | immunodeficiency | | | | [place], [place] | [address] | virus infection) | | | | [address] | [phone] | (HCC); Current | | | | [phone] | | smoker; Marijuana | | | | | | use | +--------+ + + + + Social [...] ED Notes Conversion Transaction, Provider Unknown - 2015 7:05 AM PSTFormatting of this note m ight be different from the original. ED Notes by Peyton Lopez RN at 09/19/15 0705 Author: Peyton Lopez RN Service: (none) Author Type: Registered Nurse Filed: 09/19/15705 Date of Service: 09/19/15704 Status: Addendum [employer] Curtain Machine Tender: Peyton Lopez RN (Registered Nurse) Related Notes: Original Note by Peyton Lopez RN (Registered Nurse) filed at 1505 15 Bedside report given to Yane SERNA/KAREEM Medina. Peyton Lopez RN 09/19/15705 Peyton Lopez RN 09/19/15705 oung, Quinton Jovel DO - 2015 5:35 AM PST ED Provider Notes by Quinton Bledsoe DO at 09/19/15534 Author: Quinton Bledsoe DO Service: Emergency Department Author Type: Physician Filed: 09/19/151929 Date of Service: 09/19/15534 Status: Addendum [employer] Machine Tender: Quinton Bledsoe DO (Physician) Related Notes: Original Note by Quinton Bledsoe DO (Physician) filed at 09/19/151928 [facility] Department of Emergency Medicine 5:35 AM History of Present Illness Patient Identification Slava Anderson is a 50 y.o. male. Patient information was obtained from patient. History/Exam limitations: none. Patient presented to the Emergency Department by: Car History of Presenting Illness The patient is a 50 y.o. year old male presenting with Chief Complaint Patient presents with Skin Complaint Facial Swelling Location- Face, Nose Onset- 4 AM Duration - constant Severity/Character- significant facial swelling after a suspected spider bite Worse with- nothing Better with- nothing, despite Benadryl Denies-CP, SOB, Context- Pt states he had been feeling fine despite getting over a recent illness and havin g a mild cough. He states at 4AM, he walked outside to smoke a cigarette, walked through a c obbweb. 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 Pt is allergic to bees. H/o thrush. Care MICROBIOLOGY DIRECTOR consisted of 2 doses of Benadryl. 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 Past Medical History Diagnosis Date HIV (human immunodeficiency virus infection) ([facility]) Muscle spasms of neck Hyperlipidemia Cholelithiasis COPD (chronic obstructive pulmonary disease) ([facility]) Chronic mastoiditis Multiple joint pain 05/14/2013 Other chronic pain Neurosyphilis in male Blurred vision, bilateral Unspecified visual disturbance Past Surgical History Procedure Laterality Date Tonsillectomy Fistula repair Tympanoplasty Ercp N/A 05/24/2015 Procedure: ENDOSCOPIC RETROGRADE CHOLANGIOPANCREATOGRAPHY; Surgeon: Jin Arango MD; Lo cation: [facility]; Service: Gastroenterology; Laterality: N/A; Spine surgery Prior to Admission medications Medication Sig Start Date End Date Taking? Authorizing Provider Gyuuivr-Jdikuct-Xzcbjxez-Tenof (STRIBILD) [phone] MG TABS Take by mouth. Histor ical Provider fluticasone (FLOVENT HFA) 220 MCG/ACT inhaler Inhale 1 puff into the lungs 2 (two) times da laverne. Historical Provider HYDROcodone-acetaminophen (NORCO) 5-325 MG per tablet Take 1-2 tablets by mouth every 6 (si x) hours as needed for Pain. 07/25/15 08/04/15 WANDA Marshall naproxen (NAPROSYN) 500 MG tablet Take 1 tablet by mouth 2 (two) times daily. For pain 05/11/16 Rickey Saucedo DO VENTOLIN HFA 108 (90 BASE) MCG/ACT inhaler [...] fever, chills Eyes: Negative for vision changes Nose: Negative for congestion, nosebleeds Throat: Negative for sore throat CV/Resp: Negative for chest pain, gaildgubz-yz-jfqdgj, cough GI: Negative for abdominal pain, nausea, vomiting, or diarrhea : Negative for urinary problems Musculoskeletal: Negative for back pain, joint pain Skin: Negative for rash Neuro/Psych: Negative for headache Endo/heme/Lymph: Negative for swollen lymph nodes, easy bruising Physical Exam BP 139/87 mmHg | Pulse 134 | Temp(Src) 98.8 F (37.1 C) (Temporal) | Resp 22 | Wt 96.3 k g (212 lb 4.9 oz) | SpO2 99% Vital signs interpretation: tachycardic, tachypneic Pulse Oximetry interpretation: Normal General: Alert, in no apparent distress Eyes: Normal inspection, pupils equal and round, non-icteric ENT: Ears normal Nose normal Moist mucous membranes Marked swelling over bridge of nose, extending laterally under both eyes, no lesions on r mikey of mouth, does have white plaques in ororpharynx consistent with thrush. Neck: Normal inspection Supple Cardiovasc: Tachycardic, rhythm normal No murmurs Respiratory: Breath sounds normal bilaterally No rales, wheezing or rhonchi Abdomen: Soft, non-tender, non-distended No guarding or rebound No peritoneal sign Genitourinary: Deferred Rectal exam: Deferred Back: Normal inspection Extremities: No swelling or redness, trace LE edema Skin: Color normal Warm and dry No rash Neuro: Alert, no AMS No gross motor/sensory deficits Moving all extremities Medical Decision Making and Emergency Department Course ED Department Course 50 y.o. male presents to the ED with a chief complaints of nasal swelling, profoundly swol nichelle nose on exam, HIV+, will get labs, ct and reevaluate the patient. Review of vitals BP 139/87 mmHg | Pulse 134 | Temp(Src) 98.8 F (37.1 C) (Temporal) | Re sp 22 | Wt 96.3 kg (212 lb 4.9 oz) | SpO2 99% Patient reevaluation. Patient is stable and feeling better at this time. Ddx: I considered abscess, uticaria, sjs, tens, allergic reaction, scabies, dermatitis, elliot ng others in my differential and workup. Pt has cellulitis on exam, Ct showed some mild a denopathy, but no signs of nec fasc, or abscess, pt treated with bactrim/keflex and d/c'd ho me for pcp f/u. Rash is bilateral not consistent with zoster, no vesicles seen, non toxic a ppearing pt. Counseled the patient regarding the importance of smoking cessation. It is very important t hat you quit smoking. There are various alternatives available to help with this difficult t ask, but first and foremost, you must make a firm commitment and decision to quit. The natur e of nicotine addiction is discussed. The usefulness of behavioral therapy is discussed and suggested. The correct use, cost and side effects of nicotine replacement therapy such as gu m or patches is discussed. The quit rates are discussed. I recommended to not allow potentia l costs of treatments to deter you from using nicotine replacement therapy, as the lobsterman economic and health benefits are obvious. Counseled x 4 minutes. Records Reviewed Old medical records. Nursing notes. Previous radiology studies. Laboratory Evaluation Results Procedure Component Value Ref Range Date/Time Amphetamine and Methamphetamine [[id number]] (Abnormal) Collected: 09/19/15834 Order Status: Completed Updated: 09/19/15956 AMPHETAMINE POSITIVE (A) NEGATIVE METHAMPHETAMINES POSITIVE (A) NEGATIVE Drugs of Abuse Screen, UR (Hospital And ED Only) [[id number]] (Abnormal) Collected: 08/24 Order Status: Completed Specimen Information: Urine / Urine, Clean Catch Updated: 08/24 AMPHETAMINE/METHAMPHETAMINE POSITIVE (A) NEGATIVE BARBITUATES NEGATIVE NEGATIVE BENZODIAZEPINE NEGATIVE NEGATIVE COCAINE NEGATIVE NEGATIVE METHADONE NEGATIVE NEGATIVE OPIATES NEGATIVE NEGATIVE PCP NEGATIVE NEGATIVE THC POSITIVE (A) NEGATIVE Urinalysis (reflex to microscopic/reflex to culture) [[id number]] Collected: 09/19/15 Order Status: Completed Specimen Information: Urine, Clean Catch Updated: 09/19/15 50 COLOR UA COLORLESS CLARITY CLEAR Specific [place], UA 1.025 1.002 - 1.030 LEUKOCYTE ESTERASE NEGATIVE NEGATIVE NITRITE NEGATIVE NEGATIVE UROBILINOGEN NORMAL <1.1 mg/dL PROTEIN NEGATIVE NEGATIVE mg/dL PH,URINE 7.0 5.0 - 8.0 BLOOD NEGATIVE NEGATIVE KETONES NEGATIVE NEGATIVE mg/dL BILIRUBIN NEGATIVE NEGATIVE GLUCOSE NEGATIVE NEGATIVE mg/dL Blood Culture Set 1 [[id number]] Collected: 09/19/15614 Order Status: Sent Specimen Information: Blood / Blood Updated: 09/19/15836 Blood culture, set 2 [[id number]] Collected: 09/19/15624 Order Status: Sent Specimen Information: Blood / Blood Updated: 09/19/15836 C-Reactive Protein [[id number]] (Abnormal) Collected: 09/19/15614 Order Status: Completed Specimen Information: Blood Updated: 09/19/15648 CRP 2.8 (H) <0.5 mg/dL Complete Metabolic Panel [[id number]] (Abnormal) Collected: 09/19/15614 Order Status: Completed Specimen Information: Blood Updated: 09/19/15648 SODIUM 135 135 - 143 mmol/L POTASSIUM 4.0 3.5 - 4.9 mmol/L CHLORIDE 101 99 - 109 mmol/L CO2 27 23 - 32 mmol/L ANION GAP AGAP 11 5 - 20 mmol/L GLUCOSE 109 (H) 65 - 99 mg/dL BUN 22 8 - 25 mg/dL CREATININE 0.85 0.70 - 1.30 mg/dL BUN/CREAT 26 CALCIUM 8.6 8.5 - 10.5 mg/dL TOTAL PROTEIN 8.5 (H) 6.3 - 8.2 g/dL Albumin 3.6 3.6 - 5.0 g/dL GLOBULIN 4.8 1.3 - 4.9 g/dL A/G 0.7 (L) 1.0 - 2.4 TBIL 0.3 0.1 - 1.5 mg/dL ALK PHOS 83 35 - 115 U/L AST 21 10 - 45 U/L ALT 31 10 - 65 U/L EGFR >60 >60 mL/min/1.73m2 Lactic acid, plasma [[id number]] Collected: 09/19/15614 Order Status: Completed Specimen Information: Blood Updated: 09/19/15647 LACTIC ACID 1.7 0.4 - 2.0 mmol/L CBC w Auto Diff [[id number]] (Abnormal) Collected: 09/19/15614 Order Status: Completed Specimen Information: Blood Updated: 09/19/15625 WBC 11.83 (H) 3.80 - 11.00 K/uL RBC 4.85 4.20 - 5.70 M/uL HGB 13.7 13.2 - 17.0 g/dL HCT 41.0 39.0 - 50.0 % MCV 84.6 80.0 - 100.0 fl MCH 28.2 27.0 - 34.0 pg MCHC 33.4 32.0 - 35.5 g/dL RDW SD 45.1 37 - 53 fl PLT 246 150 - 400 K/uL MPV 8.3 fl DIFF TYPE AUTOMATED NEUTROPHILS 71.40 % LYMPHOCYTES 20.77 % MONOCYTES 6.38 % EOSINOPHILS 1.10 % BASOPHILS 0.35 % NEUTROPHILS ABS 8.45 (H) 1.90 - 7.40 K/uL LYMPHOCYTES ABS 2.46 1.00 - 3.90 K/uL MONOCYTES ABS 0.76 0.00 - 0.80 K/uL EOSINOPHILS ABS 0.13 0.00 - 0.50 K/uL BASOPHILS ABS 0.04 0.00 - 0.10 K/uL I personally reviewed the lab results and they have been posted to the chart. Pertinent po sitive and negative findings have been addressed appropriately and I have discussed any abno rmal labs with the patient. Radiology and EKG Evaluation Imaging Results CT facial area with IV contrast (Final result) Result time: 09/19/15 08:06:53 Final result by Rad Results In Melquiades (09/19/15 08:06:53) Impression: 1. Several small skin lesions in the nose, nonspecific in etiology. 2. Mild ethmoid and maxillary sinusitis. A perforated nasal septum is noted. 3. Adenopathy within the visualized extent of the neck, could be benign or malignant. Narrative: SLAVA ANDERSON CT FACIAL AREA W CONTRAST 2015 7:46 AM HISTORY: Immunocompromise patient with lumps on the bridge of the nose. TECHNIQUE: 1 mm axial sections were obtained through the face with IV contrast and reformatted images were constructed. FINDINGS: No prior comparison. There are several small lesions involving the nose centered in the skin, best visualized on series 2 image 111 and series 2 image 108. These measure approximate 5-6 mm in diameter. Th e etiology of the skin lesions is unclear. Could be infectious, inflammatory, or neoplastic. Correlate clinically. No deep fascial abscesses are identified. There is adenoidal hypertrophy. Multiple enlarged lymph nodes are identified within the upp er neck region, nonspecific in etiology. For example, there is a left level 2 lymph node rocco suring 12 x 20 mm and a right level 2 lymph node measuring 13 x 18 mm. There is mild mucosal thickening within the ethmoid and maxillary sinuses bilaterally with a tiny air-fluid level in the left maxillary sinus, consistent with mild sinusitis. The nasa l septum deviates leftward and there is a nasal septal perforation measuring approximately 7 mm in diameter. ED Diagnoses Final diagnoses Cellulitis of nasal tip Multiple joint pain HIV (human immunodeficiency virus infection) ([facility]) Current smoker Marijuana use Disposition: ED Disposition Orders Discharge Condition at discharge: Stable Follow-up Information Follow up With Details Comments Contact Info Jossy Urena MD [address] [facility] [address] Discharge Medications: Discharge Medication List as of 2015 8:54 AM START taking these medications Details cephALEXin (KEFLEX) 500 MG capsule Take 1 capsule by mouth 4 (four) times daily., Starting 2015, Until Fri09/29/15, Print sulfamethoxazole-trimethoprim (BACTRIM DS) 800-160 MG per tablet Take 1 tablet by mouth 2 ( two) times daily., Starting 2015, Until Fri09/29/15, Print Procedures Additional Documentation Procedures Attending Note: Documentation assistance provided by Norma Degroot (Scribe). Information recorded by the scribe has been reviewed and validated by me. I rosa williamson with its contents. DO Quinton Cordoba DO 09/19/151926 Quinton Bledsoe DO 09/19/151928 Quinton Bledsoe DO 09/19/151929 documented in t his encounter Plan of Treatment Not on filedocumented as of this encounter Procedures + +--------+ + + + | Procedure Name | Priori | Date/Time | Associated Diagnosis | Comments | | | ty | | | | + +--------+ + + + | DRUGS OF ABUSE | Routin | 2015 | | Results for this | | SCREEN, URINE (H) | e | 8:35 AM | | procedure are in the | | | | PST | | results section. | + +--------+ + + + | DRUG OF ABUSE, | Routin | 2015 | | Results for this | | AMPHET/METHAMPHET BY | e | 8:35 AM | | procedure are in the | | GC/MS | | PST | | results section. | + +--------+ + + + | URINALYSIS, REFLEX | Routin | 2015 | | Results for this | | MICROSCOPIC AND/OR | e | 8:35 AM | | procedure are in the | | CULTURE | | PST | | results section. | + +--------+ + + + | CT MAXILLOFACIAL W | Routin | 2015 | | Results for this | | CONTRAST | e | 7:46 AM | | procedure are in the | | | | PST | | results section. | + +--------+ + + + | CULTURE, BLOOD, 2ND | STAT | 2015 | | Results for this | | SPECIMEN (NON-ORD) | | 6:25 AM | | procedure are in the | | | | PST | | results section. | + +--------+ + + + | EXTERNAL LAB: CBC | Routin | 2015 | | Results for this | | | e | 6:15 AM | | procedure are in the | | | | PST | | results section. | + +--------+ + + + | CULTURE, BLOOD | STAT | 2015 | | Results for this | | | | 6:15 AM | | procedure are in the | | | | PST | | results section. | + +--------+ + + + | C-REACTIVE PROTEIN | Routin | 2015 | | Results for this | | | e | 6:15 AM | | procedure are in the | | | | PST | | results section. | + +--------+ + + + | LACTIC ACID | Routin | 2015 | | Results for this | | | e | 6:15 AM | | procedure are in the | | | | PST | | results section. | + +--------+ + + + | COMPREHENSIVE | Routin | 2015 | | Results for this | | METABOLIC PANEL | e | 6:15 AM | | procedure are in the | | | | PST | | results section. | + +--------+ + + + documented in this encounter Results FAHEEM, Amphet/Methamphet,GC/MS (2015 8:35 AM PST) + + + + + + | Component | Value | Ref Range | Performed | Pathologist | | | | | At | Signature | + + + + + + | Amphetamine | POSITIVE (A)Comment: | | EXTERNAL | | | s | The cutoff for a | | LAB | | | | positive AMP is 1000 | | | | | | ng/mL.Testing performed | | | | | | at [facility];[address] | | | | | | [address];[place] [address] | | | | + + + + + + | Methampheta | POSITIVE (A)Comment: | | EXTERNAL | | | mine | The cutoff for a | | LAB | | | Screen, UA, | positive mAMP is 1000 | | | | | POC | ng/mL.Testing performed | | | | | | at [facility];[address];[place] [address] | | | | + + + + + + + + | Specimen | + + | | + + + +---------+ + + | Performing | Address | City/State/Zipcode | Phone Number | | Organization | | | | + +---------+ + + | EXTERNAL LAB | | | | + +---------+ + + [facility] Screen, Urine (H) (2015 8:35 AM PST) + + + + + + | Component | Value | Ref Range | Performed | Pathologist | | | | | At | Signature | + + + + + + | Methampheta | POSITIVE (A)Comment: | | EXTERNAL | | | mine/ | Positive cutoff for | | LAB | | | Amphetamine | AMP = 1000 ng/mLTesting | | | | | Screen, | performed at [facility];[address] | | | | | [address], P[address] | [address];[place] | | | | | | [address] | | | | + + + + + + | Barbiturate | NEGATIVEComment: | | EXTERNAL | | | s Screen, | Positive cutoff for | | LAB | | | Urine | VERONICA = 200 ng/mLTesting | | | | | | performed at [facility];[address] | | | | | | [address];[place] | | | | | | [address] | | | | + + + + + + | Benzodiazep | NEGATIVEComment: | | EXTERNAL | | | marie | Positive cutoff for | | LAB | | | Screen, | BENZO = 200 ng/mLTesting | | | | | Urine | performed at [facility];[address] | | | | | | [address];[place] | | | | | | [address] | | | | + + + + + + | Cocaine | NEGATIVEComment: | | EXTERNAL | | | | Positive cutoff for | | LAB | | | | MELIZA = 300 ng/mLTesting | | | | | | performed at [facility];[address] | | | | | | [address];[place] | | | | | | [address] | | | | + + + + + + | Methadone | NEGATIVEComment: | | EXTERNAL | | | | Positive cutoff for | | LAB | | | | MTD = 300 ng/mLTesting | | | | | | performed at [facility];[address] | | | | | | [address];[place] | | | | | | [address] | | | | + + + + + + | Opiates | NEGATIVEComment: | | EXTERNAL | | | | Positive cutoff for | | LAB | | | | OPI = 300 ng/mLTesting | | | | | | performed at [facility];[address];[place] | | | | | | [address] | | | | + + + + + + | PCP | NEGATIVEComment: | | EXTERNAL | | | | Positive cutoff for PCP | | LAB | | | | = 25 ng/mLTesting | | | | | | performed at [facility];[address] | | | | | | [address];[place] | | | | | | [address] | | | | + + + + + + | Cannabinoid | POSITIVE (A)Comment: | | EXTERNAL | | | s Screen, | Positive cutoff for THC | | LAB | | | Serum | = 50 ng/mLThe above are | | | | | | unconfirmed screening | | | | | | results. These results | | | | | | are to be used only for | | | | | | medical | | | | | | (i.e.,treatment) | | | | | | purposes. Unconfirmed | | | | | | screening results must | | | | | | not be used for | | | | | | non-medical purposes | | | | | | (e.g., employment | | | | | | testing, legal | | | | | | testing).Testing | | | | | | performed at [facility];[address] | | | | | | [address];[place] | | | | | | [address] | | | | + + + [...] + + Urinalysis, Reflex Microscopic and/or Culture (2015 8:35 AM PST) + + + + + + | Component | Value | Ref Range | Performed | Pathologist | | | | | At | Signature | + + + + + + | Color | COLORLESSComment: | | EXTERNAL | | | | Testing performed at | | LAB | | | | [facility];[address];[place] [address] | | | | + + + + + + | Clarity, | CLEARComment: Testing | | EXTERNAL | | | Urine | performed at [facility];[address] | | LAB | | | [address];[place] | | | | | | [address] | | | | + + + + + + | Specific | 1.025Comment: Testing | 1.002 - 1.030 | EXTERNAL | | | [place], | performed at [facility];[address] | | LAB | | | Urine | [address];[place] | | | | | | [address] | | | | + + + + + + | Leukocyte | NEGATIVEComment: Testing | | EXTERNAL | | | Esterase, | performed at [facility];[address] | | LAB | | | Urine | [address];[place] | | | | | | [address] | | | | + + + + + + | Nitrite, | NEGATIVEComment: Testing | | EXTERNAL | | | Urine | performed at [facility];[address] | | LAB | | | [address];[place] | | | | | | [address] | | | | + + + + + + | Urobilinoge | NORMALComment: Testing | mg/dL | EXTERNAL | | | n, Urine | performed at [facility];[address] | | LAB | | | [address];[place] | | | | | | [address] | | | | + + + + + + | Protein, | NEGATIVEComment: Testing | mg/dL | EXTERNAL | | | Urine | performed at [facility];[address] | | LAB | | | [address];[place] | | | | | | [address] | | | | + + + + + + | pH, Urine | 7.0Comment: Testing | 5.0 - 8.0 | EXTERNAL | | | | performed at [facility];[address] | | LAB | | | [address];[place] | | | | | | [address] | | | | + + + + + + | Blood, | NEGATIVEComment: Testing | | EXTERNAL | | | Urine | performed at [facility];[address] | | LAB | | | [address];[place] | | | | | | [address] | | | | + + + + + + | Ketones | NEGATIVEComment: Testing | mg/dL | EXTERNAL | | | | performed at [facility];[address] | | LAB | | | [address];[place] | | | | | | [address] | | | | + + + + + + | Bilirubin, | NEGATIVEComment: Testing | | EXTERNAL | | | Urine | performed at [facility];[address] | | LAB | | | [address];[place] | | | | | | [address] | | | | + + + + + + | Glucose, | NEGATIVEComment: Testing | mg/dL | EXTERNAL | | | Urine | performed at [facility];[address] | | LAB | | | | [address];[place], [place] | | | | | | [address] | | | | + + + + + + + + | Specimen | + + | | + + + +---------+ + + | Performing | Address | City/State/Zipcode | Phone Number | | Organization | | | | + +---------+ + + | EXTERNAL LAB | | | | + +---------+ + + CT Maxillofacial w Contrast (2015 7:46 AM PST) + + | Specimen | + + | | + + + + + | Impressions | Performed At | + + + | 1. Several small skin lesions in the nose, nonspecific in | | | etiology. 2. Mild ethmoid and maxillary sinusitis. A perforated | | | nasal septum is noted. 3. Adenopathy within the visualized extent | | | of the neck, could be benign or malignant. | | + + + + + + | Narrative | Performed At | + + + | SLAVA ANDERSON CT FACIAL AREA W CONTRAST 2015 7:46 AM | | | HISTORY: Immunocompromise patient with lumps on the bridge of the | | | nose. TECHNIQUE: 1 mm axial sections were obtained through the | | | face with IV contrast and reformatted images were constructed. | | | FINDINGS: No prior comparison. There are several small lesions | | | involving the nose centered in the skin, best visualized on series 2 | | | image 111 and series 2 image 108. These measure approximate 5-6 mm in | | | diameter. The etiology of the skin lesions is unclear. Could be | | | infectious, inflammatory, or neoplastic. Correlate clinically. No | | | deep fascial abscesses are identified. There is adenoidal | | | hypertrophy. Multiple enlarged lymph nodes are identified within the | | | upper neck region, nonspecific in etiology. For example, there is a | | | left level 2 lymph node measuring 12 x 20 mm and a right level 2 lymph | | | node measuring 13 x 18 mm. There is mild mucosal thickening | | | within the ethmoid and maxillary sinuses bilaterally with a tiny | | | air-fluid level in the left maxillary sinus, consistent with mild | | | sinusitis. The nasal septum deviates leftward and there is a nasal | | | septal perforation measuring approximately 7 mm in diameter. | | + + + + + | Procedure Note | + + | Melquiades, Rad Conversion - 06/25/2019 3:37 AM [facility] | | HKZSDKXX24/10/2015 7:46 AM HISTORY:Immunocompromise patient with lumps on the bridge of | | the nose. TECHNIQUE:1 mm axial sections were obtained through the face with IV contrast | | and reformatted images were constructed. FINDINGS:No prior comparison. There are several | | small lesions involving the nose centered in the skin, best visualized on series 2 | | image 111 and series 2 image 108. These measure approximate 5-6 mm in diameter. The | | etiology of the skin lesions is unclear. Could be infectious, inflammatory, or | | neoplastic. Correlate clinically. No deep fascial abscesses are identified. There is | | adenoidal hypertrophy. Multiple enlarged lymph nodes are identified within the upper | | neck region, nonspecific in etiology. For example, there is a left level 2 lymph node | | measuring 12 x 20 mm and a right level 2 lymph node measuring 13 x 18 mm. There is mild | | mucosal thickening within the ethmoid and maxillary sinuses bilaterally with a tiny | | air-fluid level in the left maxillary sinus, consistent with mild sinusitis. The nasal | | septum deviates leftward and there is a nasal septal perforation measuring approximately | | 7 mm in diameter. IMPRESSION: 1. Several small skin lesions in the nose, nonspecific | | in etiology.2. Mild ethmoid and maxillary sinusitis. A perforated nasal septum is | | noted.3. Adenopathy within the visualized extent of the neck, could be benign or | | malignant. | | | |There is mild mucosal thickening within the ethmoid and maxillary sinuses bilaterally with a tiny air-fluid level in the left maxillary sinus, consistent with mild sinusitis. The nasa l septum deviates leftward and there is a nasal septal perforation | |measuring approximately 7 mm in diameter. | | | |IMPRESSION: | |1. Several small skin lesions in the nose, nonspecific in etiology. | |2. Mild ethmoid and maxillary sinusitis. A perforated nasal septum is noted. | |3. Adenopathy within the visualized extent of the neck, could be benign or malignant. | | | | | + + Culture, Blood, 2nd Specimen (2015 6:25 AM PST) + + | Specimen | + + | Blood specimen | | (specimen) | + + + + + | Narrative | Performed At | + + + | Specimen Description BLOOD SPECIAL | EXTERNAL LAB | | REQUESTS LHAND | | | Testing performed at [facility];[address] | | [address];[place] [address] CULTURE | | | NO GROWTH | | | Testing performed at [facility], [address], [place] | | | [address] | | + + + + +---------+ + + | Performing | Address | City/State/Zipcode | Phone Number | | Organization | | | | + +---------+ + + | EXTERNAL LAB | | | | + +---------+ + + Culture, Blood (2015 6:15 AM PST) + + | Specimen | + + | Blood specimen | | (specimen) | + + + + + | Narrative | Performed At | + + + | Specimen Description BLOOD SPECIAL | EXTERNAL LAB | | REQUESTS LAC | | | Testing performed at [facility];[address];[place] [address] CULTURE | | | NO GROWTH | | | Testing performed at [facility], [address], [place], [place] | | | [address] | | + + + + +---------+ + + | Performing | Address | City/State/Zipcode | Phone Number | | Organization | | | | + +---------+ + + | EXTERNAL LAB | | | | + +---------+ + + External Lab: CBC (2015 6:15 AM PST) + + + + + + | Component | Value | Ref Range | Performed | Pathologist | | | | | At | Signature | + + + + + + | WBC | 11.83 (H)Comment: | 3.80 - 11.00 | EXTERNAL | | | | Testing performed at | K/uL | LAB | | | | [facility];[address];[place] [address] | | | | + + + + + + | Non- | 4.85Comment: Testing | 4.20 - 5.70 | EXTERNAL | | | Red Blood | performed at [facility];[address] | M/uL | LAB | | | Cells | [address];[place], [place] | | | | | Counted | [id number] | | | | + + + + + + | Hemoglobin | 13.7Comment: Testing | 13.2 - 17.0 | EXTERNAL | | | | performed at [facility];[address] | g/dL | LAB | | | | [address];[place] | | | | | | [address] | | | | + + + + + + | Hematocrit, | 41.0Comment: Testing | 39.0 - 50.0 % | EXTERNAL | | | POC | performed at [facility];[address] | | LAB | | | [address];[place] | | | | | | [address] | | | | + + + + + + | MCV | 84.6Comment: Testing | 80.0 - 100.0 fl | EXTERNAL | | | | performed at [facility];[address] | | LAB | | | [address];[place] | | | | | | [address] | | | | + + + + + + | MCH | 28.2Comment: Testing | 27.0 - 34.0 pg | EXTERNAL | | | | performed at [facility];[address] | | LAB | | | [address];[place] | | | | | | [address] | | | | + + + + + + | MCHC | 33.4Comment: Testing | 32.0 - 35.5 | EXTERNAL | | | | performed at [facility];[address] | g/dL | LAB | | | | [address];[place] | | | | | | [address] | | | | + + + + + + | RDW-CV | 45.1Comment: Testing | 37 - 53 fl | EXTERNAL | | | | performed at [facility];[address] | | LAB | | | [address] | | | | | | [address] | | | | + + + + + + | Platelet | 246Comment: Testing | 150 - 400 K/uL | EXTERNAL | | | Count | performed at [facility];[address] | | LAB | | | Plasma | [address];[place] | | | | | | [address] | | | | + + + + + + | MPV | 8.3Comment: Testing | fl | EXTERNAL | | | | performed at [facility];[address] | | LAB | | | [address] | | | | | | [address] | | | | + + + + + + | Differentia | AUTOMATEDComment: | | EXTERNAL | | | l Type | Testing performed at | | LAB | | | | [facility];[address];[place] [address] | | | | + + + + + + | % Segmented | 71.40Comment: Testing | % | EXTERNAL | | | | performed at [facility];[address] | | LAB | | | Neutrophils | [address];[place] | | | | | | [address] | | | | + + + + + + | % | 20.77Comment: Testing | % | EXTERNAL | | | Lymphocytes | performed at [facility];[address] | | LAB | | | [address];[place] | | | | | | [address] | | | | + + + + + + | % Monocytes | 6.38Comment: Testing | % | EXTERNAL | | | | performed at [facility];[address] | | LAB | | | | [address];[place] | | | | | | [address] | | | | + + + + + + | % | 1.10Comment: Testing | % | EXTERNAL | | | Eosinophils | performed at [facility];[address] | | LAB | | | | [address];[place] | | | | | | [address] | | | | + + + + + + | % Basophils | 0.35Comment: Testing | % | EXTERNAL | | | | performed at [facility];[address] | | LAB | | | | [address];[place] | | | | | | [address] | | | | + + + + + + | Absolute | 8.45 (H)Comment: Testing | 1.90 - 7.40 | EXTERNAL | | | Segmented | performed at [facility];[address] | K/uL | LAB | | | Neutrophils | [address];[place] | | | | | | [address] | | | | + + + + + + | Absolute | 2.46Comment: Testing | 1.00 - 3.90 | EXTERNAL | | | Lymphocytes | performed at [facility];[address] | K/uL | LAB | | | | [address];[place] | | | | | | [address] | | | | + + + + + + | Absolute | 0.76Comment: Testing | 0.00 - 0.80 | EXTERNAL | | | Monocytes | performed at [facility];[address] | K/uL | LAB | | | | [address];[place] | | | | | | [address] | | | | + + + + + + | Absolute | 0.13Comment: Testing | 0.00 - 0.50 | EXTERNAL | | | Eosinophils | performed at [facility];[address] | K/uL | LAB | | | | [address];[place] | | | | | | [address] | | | | + + + + + + | Absolute | 0.04Comment: Testing | 0.00 - 0.10 | EXTERNAL | | | Basophils | performed at [facility];[address] | K/uL | LAB | | | | [address];[place] | | | | | | [address] | | | | + + + + + + + + | Specimen | + + | Blood specimen | | (specimen) | + + + +---------+ + + | Performing | Address | City/State/Zipcode | Phone Number | | Organization | | | | + +---------+ + + | EXTERNAL LAB | | | | + +---------+ + + C-Reactive Protein (2015 6:15 AM PST) + + + + + + | Component | Value | Ref Range | Performed | Pathologist | | | | | At | Signature | + + + + + + | CRP | 2.8 (H)Comment: Testing | mg/dL | EXTERNAL | | | | performed at [facility];[address] | | LAB | | | | [address] [facility];[place], [place] | | | | | | [address] | | | | + + + + + + + + | Specimen | + + | Blood specimen | | (specimen) | + + + +---------+ + + | Performing | Address | City/State/Zipcode | Phone Number | | Organization | | | | + +---------+ + + | EXTERNAL LAB | | | | + +---------+ + + Lactic Acid (2015 6:15 AM PST) + + + + + + | Component | Value | Ref Range | Performed | Pathologist | | | | | At | Signature | + + + + + + | Lactate | 1.7Comment: Testing | 0.4 - 2.0 | EXTERNAL | | | | performed at [facility];[address] | mmol/L | LAB | | | | [address];[place], [place] | | | | | | [address] | | | | + + + [...] + +---------+ + + Comprehensive Metabolic Panel (2015 6:15 AM PST) + + + + + + | Component | Value | Ref Range | Performed | Pathologist | | | | | At | Signature | + + + + + + | Na | 135Comment: Testing | 135 - 143 | EXTERNAL | | | | performed at [facility];[address] | mmol/L | LAB | | | | [address];[place] | | | | | | [address] | | | | + + + + + + | K | 4.0Comment: Testing | 3.5 - 4.9 | EXTERNAL | | | | performed at [facility];[address] | mmol/L | LAB | | | | [address];[place] | | | | | | [address] | | | | + + + + + + | Cl | 101Comment: Testing | 99 - 109 mmol/L | EXTERNAL | | | | performed at [facility];[address] | | LAB | | | | [address];[place] | | | | | | [address] | | | | + + + + + + | CO2 | 27Comment: Testing | 23 - 32 mmol/L | EXTERNAL | | | | performed at [facility];[address] | | LAB | | | | [address];[place] | | | | | | [address] | | | | + + + + + + | Anion Gap | 11Comment: Testing | 5 - 20 mmol/L | EXTERNAL | | | | performed at [facility];[address] | | LAB | | | | [address];[place] | | | | | | [address] | | | | + + + + + + | Glucose, | 109 (H)Comment: Testing | 65 - 99 mg/dL | EXTERNAL | | | Fasting | performed at [facility];[address] | | LAB | | | | [address];[place] | | | | | | [address] | | | | + + + + + + | BUN | 22Comment: Testing | 8 - 25 mg/dL | EXTERNAL | | | | performed at [facility];[address] | | LAB | | | | [address];[place] | | | | | | [address] | | | | + + + + + + | Creatinine | 0.85Comment: Testing | 0.70 - 1.30 | EXTERNAL | | | | performed at [facility];[address] | mg/dL | LAB | | | | [address];[place] | | | | | | [address] | | | | + + + + + + | BUN/Creatin | 26Comment: Testing | | EXTERNAL | | | ine Ratio | performed at [facility];[address] | | LAB | | | | [address];[place] | | | | | | [address] | | | | + + + + + + | Calcium | 8.6Comment: Testing | 8.5 - 10.5 | EXTERNAL | | | | performed at [facility];[address] | mg/dL | LAB | | | | [address];[place] | | | | | | [address] | | | | + + + + + + | Protein, | 8.5 (H)Comment: Testing | 6.3 - 8.2 g/dL | EXTERNAL | | | Total | performed at [facility];[address] | | LAB | | | | [address];[place] | | | | | | [address] | | | | + + + + + + | Albumin | 3.6Comment: Testing | 3.6 - 5.0 g/dL | EXTERNAL | | | | performed at [facility];[address] | | LAB | | | | [address];[place] | | | | | | [address] | | | | + + + + + + | Globulin | 4.8Comment: Testing | 1.3 - 4.9 g/dL | EXTERNAL | | | | performed at [facility];[address] | | LAB | | | | [address];[place] | | | | | | [address] | | | | + + + + + + | A/G Ratio | 0.7 (L)Comment: Testing | 1.0 - 2.4 | EXTERNAL | | | | performed at [facility];[address] | | LAB | | | | [address];[place] | | | | | | [address] | | | | + + + + + + | Bilirubin | 0.3Comment: Testing | 0.1 - 1.5 mg/dL | EXTERNAL | | | Total | performed at [facility];[address] | | LAB | | | | [address];[place] | | | | | | [address] | | | | + + + + + + | ALP, | 83Comment: Testing | 35 - 115 U/L | EXTERNAL | | | External | performed at [facility];[address] | | LAB | | | | [address];[place] | | | | | | [address] | | | | + + + + + + | AST | 21Comment: Testing | 10 - 45 U/L | EXTERNAL | | | | performed at [facility];[address] | | LAB | | | | [address];[place] | | | | | | [address] | | | | + + + + + + | ALT | 31Comment: Testing | 10 - 65 U/L | EXTERNAL | | | | performed at [facility];[address] | | LAB | | | | [address];[place] | | | | | | [address] | | | | + + + [...] | | | | | | at [facility];[address];[place] [address] | | | | + + + [...] Diagnosis | + + | Cellulitis of nasal tip Cellulitis and abscess of face | + + | Multiple joint pain Pain in joint, multiple sites | + + | HIV (human immunodeficiency virus infection) (HCC) Asymptomatic human | | immunodeficiency virus (HIV) infection status | + + | Current smoker Tobacco use disorder | + + | Marijuana use Cannabis abuse, unspecified | + + documented in this [...]
--- OUTSIDE RECORDS SUMMARY | ~2020-06-05 | XMS | Encounter Summary ---
Demographics + + + | Address | [address] | | | [place] [address] | + + + | Home Phone [...] Author + + + | Author | [facility] | + + + | Organization | [facility] | + + + | Address | Unknown | + + + | Phone | Unavailable | + + + Support + + +---------+ + | Name | Relationship | Address | Phone | + + +---------+ + | Skyler Todd | ECON | Unknown | | + + +---------+ + Care Team Providers + +------+ + | Care [employer] Cleaning Supervisor Name | Role | Phone | [...] | [address] | [place], | | | | | Mailcode: [id number] | [place] [address] | | | | | [facility] | [phone] | | | | | [place], [place] | | | | | | [address] | | | | | | [phone] | | | +--------+ + + + [...]
--- OUTSIDE RECORDS SUMMARY | ~2020-06-05 | XMS | Encounter Summary ---
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 | performed at [facility];[address] | | LAB | | | | [address];[place] | | | | | | [address] | | | | + + + + + + | AST | 18Comment: Testing | 10 - 45 U/L | EXTERNAL | | | | performed at [facility];[address] | | LAB | | | | [address];[place] | | | | | | [address] | | | | + + + + + + | ALT | 30Comment: Testing | 10 - 65 U/L | EXTERNAL | | | | performed at [facility];[address] | | LAB | | | | [address];[place] | | | | | | [address] | | | | + + + [...] | | | | | | at [facility] [place] [address] | | | | | | [facility];[place] [address] | | | | + + + [...] + +---------+ + + ECG 12 lead (06/28/2014 12:02 PM PDT) + + + + + + | Component | Value | Ref Range | Performed | Pathologist | | | | | At | Signature | + + + + + + | DIAGNOSIS: | Sinus | | EXTERNAL | | | | tachycardiaPossible Left | | LAB | | | | atrial | | | | | | enlargementBorderline | | | | | | ECGNo previous ECGs | | | | | | availableThis ECG | | | | | | [...] (500), | | | | | | sound editor JUANA CHRISTIAN ([id number]) | | | | | | on 06/28/2014 12:58:40 | | | | | | PM | | | | + + + + + + + + | Specimen | + + | | + + + + + | Narrative | Performed At | + + + | Historically converted procedure from [facility] environment | EXTERNAL LAB | + + + + +---------+ + + | Performing | Address | City/State/Zipcode | Phone Number | | Organization | | | | + +---------+ + + | EXTERNAL LAB | | | | + +---------+ + + documented in this encounter Visit Diagnoses + + | Diagnosis | + + | Hyperglycemia Other abnormal glucose | + + | Hyponatremia Hyposmolality and/or hyponatremia | + + | Chest wall pain Painful respiration | + + | Fatigue Other malaise and fatigue | + + documented in this encounter [...]
--- OUTSIDE RECORDS SUMMARY | ~2020-06-05 | XMS | Encounter Summary ---
Demographics + + + | Address | [address] | | | [place] [address] | + + + | Home Phone | | + + + | Preferred Language | Unknown | + + + | Marital Status | Single | + + + | Mormon Affiliation | Unknown | + + + [...] Team Providers + +------+ + | Care Dielectric Embossing Machine Operator Name | Role | Phone [...] | [address] | Reena Carrasco [place], | | | | | Mailcode: [id number] | [place] [address] | | | | | [facility] | [phone] | | | | | [place], [place] | | | | | | [address] | | | | | | [phone] | | | +--------+ + + + [...]
--- OUTSIDE RECORDS SUMMARY | ~2020-06-05 | XMS | Encounter Summary ---
Demographics + + + | Address | [address] | | | [place] [address] | + + + | Home Phone [...] Team Providers + +------+ + | Care Transit Mixer Driver Name | Role | Phone | [...] | | [facility] [address] | Reena Carras[place], | | | | | Mailcode: [id number] | [place] [address] | | | | | [facility] | [phone] | | | | | [place], [place] | | | | | | [address] | | | | | | [phone] | | | +--------+ + + + [...]
--- OUTSIDE RECORDS SUMMARY | ~2020-06-05 | XMS | Encounter Summary ---
Demographics + + + | Address | [address] | | | [place] [address] | + + + | Home Phone [...] Team Providers + +------+ + | Care Physiology Teacher Name | Role | Phone | [...] | | [facility] [address] | [place] Carras[place], | virus infection); | | | | Mailcode: [id number] | [place] [address] | Unspecified asthma; | | | | [facility] | [phone] | Hyperlipidemia LDL | | | | [facility] [place] | | goal < 100; Vitamin | | | | [address] | | D deficiency; Hip | | | | [phone] | | pain, bilateral; | | | [...] was seen for initial evaluation in the [facility] on 09/04/10. At last visit, [...] is nonproductive. He was referred to a vinyl hanger who has not yet seen. He continues [...] gait. Labs: Lab Results Component Value Date [id number] 156* 09/04/2010 [id number] 9.0* 09/04/2010 HIVPCR 54 09/04/2010 Assessment and [...] | | + +---------+ + + | [facility] DEPARTMENT OF | | | | | [...]
--- OUTSIDE RECORDS SUMMARY | ~2020-06-05 | XMS | Encounter Summary ---
Demographics + + + | Address | [address] | | | [place] [address] | + + + | Home Phone [...] + + + | Author | [facility] | | | and [place] | + + + | Organization | [facility] | | | and [place] [...] Providers + +------+ + | Care Director Process Engineering Name | Role | Phone | + +------+ + | Jerome Young MD | PCP | | + +------+ + Encounter Details +--------+ + + + + | Date | Type | Department | Care Team | Description | +--------+ + + + + | 07/17/ | Hospital | [facility] | Jesse Gasca, | Elevated blood | | 2017 - | Encounter | [facility] [address] | MD [address] | pressure; Cellulitis | | | | [address] | [place], [place] | of right lower | | 07/22/ | | [place], [place] | [address] | extremity; HIV | | 2017 | | [id number] | | positive (HCC) | | | | [phone] | | | +--------+ + + + [...] + + + | Blood Pressure | 120/80 | 07/22/2017 10:30 AM | | | | | PDT | | + + + + + | Pulse | 105 | 07/22/2017 10:30 AM | | | | | PDT | | + + + + + | Temperature | 37.1 C (98.7 F) | 07/22/2017 10:30 AM | | | | | PDT | | + + + + + | Respiratory Rate | 18 | 07/22/2017 10:30 AM | | | | | PDT | | + + + + + | Oxygen Saturation | - | - | | + + + + + | Inhaled Oxygen | - | - | | | Concentration | | | | + + + + + | Weight | 98 kg (216 lb) | 07/22/2017 10:30 AM | | | | | PDT | | + + + + + | Height | 172.7 cm (5' 8") | 07/22/2017 10:30 AM | | | | | PDT | | + + + + + | Body Mass Index | 32.84 | 07/22/2017 10:30 AM | | | | | PDT | | + + + + + documented in this encounter Discharge Summaries Angie Pacheco MD - 07/22/2017 10:00 AM PDTFormatting of this note might be different f rom the original. Discharge Summaries by Angie Pacheco MD at 07/22/17 1000 Author: Angie Pacheco MD Service: Hospitalist Author Type: Physician Filed: 07/22/17 1215 Date of Service: 07/22/17 1000 Status: Signed Security Shift Supervisor: Angie Pacheco MD (Physician) [facility] Service: Hospitalist Physician Discharge Summary Pt: Slava Anderson AGE/SEX: 51 y.o. male ROOM: [address] [place] [address] PCP: Akin Matthews : 1965 Admit date: 07/17/2017 Discharge date and time: 07/22/2017 10:00 AM Admitting Physician: Jesse Gasca MD Discharge Physician: Angie Pacheco MD Consults: DR. Smalls Primary Discharge Diagnoses: Principal Problem (Resolved): Sepsis (HCC) Active Problems: HIV (human immunodeficiency virus infection) (HCC) Depression with anxiety Chronic back pain Hyperlipidemia Cellulitis and abscess of leg, except foot COPD (chronic obstructive pulmonary disease) (HCC) Secondary Discharge Diagnoses: Nill Discharged Condition: stable Significant Diagnostic Studies: Us Lower Extremity Venous Right Result Date: 07/18/2017 1. No evidence of lower extremity deep vein thrombosis. and Hospital Course: The patient is a 51 y.o.malewith significant past medical history of HIV, follows with Dr. Johnson, from records had spotty medical adherence, on-and-off ART, supposed to be on Brenna trim but was not taking it, COPD, coronavirus URI in December. He reports that he is now t aking Stribild daily since December. He states that every 1-2 years, he gets cellulitis at various parts of his body. He denies prior history of MRSA. He denies trauma, cut or insect bites to the right leg. He started mercado ving malaise 3 days prior to admission but denies having fever, chills or diaphoresis. He wa s not in antibiotics prior to coming into the emergency room on 07/17. He was afebrile when he presented but was tachycardic. WBC was 13,180 with 68 percent neutrophils. Renal function w as normal. Albumin 3.1. MRSA nasal PCR was negative. 2 sets of blood cultures were obtained. Last CD4 count on 03/04 was 213, CD4 percent of 11.2. HIV viral load was 897. I advised for the patient to be admitted to the hospital for IV antibiotics. He was placed on IV Unasyn. Despite IV Unasyn, he reports continuing to have fiery redness at the right le g along with burning sensation. He has remained afebrile with heart rate improved. He has been continued on Stribild. He has been placed on Bactrim for prophylaxis. On 07/18, Unasyn changed to cefazolin/clindamycin In the hospital patient was initially started on cefazolin and clindamycin without any resp onse. He was switched to daptomycin and Levaquin and received for 4 days. Patient is feeling much better. He will go home on oral doxycycline and Levaquin for 7 days. He Had no CP, SOB, N/V, Diarrhea, Abdominal pain or MERCADO. No constipation or change in bowel habits. No orthopnea or PND. Appetite is good without abdominal bloating. No cough or fever. No dizziness, lightheadedness or any symptoms suggestive of stroke. Follow Up Labs/Imaging and Monitoring: ID Discharge Vitals: Vitals: 07/21/17 1445 07/21/17 1918 07/22/17 0304 07/22/17 0721 BP: (!) 156/92 121/78 130/70 120/80 BP Location: Left upper arm Left upper arm Left upper arm Pulse: 101 109 105 105 Resp: 18 18 16 18 Temp: 97.8 F (36.6 C) 98.3 F (36.8 C) 98.2 F (36.8 C) 98.7 F (37.1 C) TempSrc: Oral Oral Oral Oral SpO2: 98% 96% 94% 98% Weight: Height: Discharge Exam: Constitutional: He is awake and alert and talking to me appropriately. Does not look like i n any kind of distress Cardiovascular: Normal rate, regular rhythm, normal heart sounds with S1 and S2 and intact distal pulses. Exam reveals no gallop and no friction rub. No murmur heard. Pulmonary/Chest: Effort normal and breath sounds normal. No stridor. No respiratory distres s. no wheezes. no rales. exhibits no tenderness. Abdominal: Soft. Bowel sounds are normal. exhibits no distension and no mass. There is no t enderness. There is no rebound and no guarding. Musculoskeletal: Right leg cellulitis Neurological: Alert and oriented to person, place, and time. Has normal reflexes. display s normal reflexes. No cranial nerve deficit. Exhibits normal muscle tone. Coordination norm al. Skin: Skin is warm and dry. No rash noted. No erythema. No pallor. Psychiatric: Has a normal mood and affect. Behavior is normal. Judgment normal. Not suicida l LABS: Recent Labs Lab 07/22/1743607/21/1744307/20/17 0501 WBC 6.84 6.73 6.52 HGB 13.1* 12.9* 13.0* HCT 39.8 38.0* 39.5 PLT 328 262 203 NEUTOPHILPCT 59.91 62.13 64.14 MONOPCT 6.87 8.02 7.04 Recent Labs Lab 07/22/1743607/21/1744307/20/17 0501 NA 135 132* 134* K 4.1 4.1 4.5 CL 99 99 99 CO2 26 24 26 BUN 19 15 14 CREATININE 0.9 0.8 0.8 PROT 8.2 7.9 8.0 BILITOT 0.2 0.3 0.2 ALT 57 66* 92* AST 30 28 57* Recent Labs Lab 07/22/1743607/21/1744307/20/17 0501 MG 2.1 2.0 2.3 Recent Labs Lab 07/20/17 0501 CKTOTAL 52* Results No results found for the last 72 hours. Disposition: Home or Self Care Patient Instructions: Medication List START taking these medications doxycycline 100 MG tablet QTY: 14 tablet Refills: 0 Commonly known as: ADOXA Take 1 tablet by mouth 2 (two) times daily for 7 days. levofloxacin 500 MG tablet QTY: 7 tablet Refills: 0 Commonly known as: LEVAQUIN Take 1 tablet by mouth Once a Day-Quinalones for 7 days. oxyCODONE-acetaminophen 5-325 MG per tablet QTY: 30 tablet Refills: 0 Commonly known as: PERCOCET Take 1 tablet by mouth every 8 (eight) hours as needed for up to 10 days. CHANGE how you take these medications sulfamethoxazole-trimethoprim 800-160 MG per tablet QTY: 30 tablet Refills: 0 Commonly known as: BACTRIM DS Take 1 tablet by mouth 3 (three) times a week. Start taking on: 07/23/2017 What changed: when to take this CONTINUE taking these medications albuterol 108 (90 Base) MCG/ACT inhaler QTY: 1 Inhaler Refills: 1 Commonly known as: PROVENTIL HFA;VENTOLIN HFA Inhale 2 puffs into the lungs every 4 (four) hours as needed for Wheezing. Fluticasone Furoate-Vilanterol 200-25 MCG/INH Aepb QTY: 1 each Refills: 12 Inhale 1 puff into the lungs daily. HYDROcodone-acetaminophen 5-325 MG per tablet QTY: 10 tablet Refills: 0 Commonly known as: NORCO Take 1-2 tablets by mouth every 6 (six) hours as needed for Pain. nystatin [id number] UNIT/ML suspension Refills: 0 Commonly known as: MYCOSTATIN STRIBILD [phone] MG Tabs Refills: 0 Generic drug: Rzpmjkl-Uiecs-Dsygosmz-TenofDF You might also be taking other medications not listed above. If you have questions about an y of your other medications, talk to the person who prescribed them or your Primary Care Pro vider. Where to Get Your Medications You can get these medications from any pharmacy Bring a paper prescription for each of these medications doxycycline 100 MG tablet levofloxacin 500 MG tablet oxyCODONE-acetaminophen 5-325 MG per tablet sulfamethoxazole-trimethoprim 800-160 MG per tablet Activity: activity as tolerated Diet: regular diet Wound Care: as directed Discharge medications reconciliation was completed by myself. I carefully reviewed all the medications with the patient. All the dosages was confirmed with the patient to the best o f patient's knowledge. I resumed most of his home medication after talking to the patient. I informed the patien t that, If you are not taking any of those medicines or if you think that dose is not righ t please talk to the primary care doctor for adjustment of doses and medications. Please fatuma e all the medication to your PCP and show him what medication you are taking so that he can adjust your medications if needed. Follow-Up: Abrahan Crowley MD [address] [facility] [address] In 1 week Akin Matthews NP [address] [facility] [address] In 1 week Discharge took more than 35 minutes, to include final examination, discussion of admission, and preparation of prescriptions, instructions for ongoing care, follow up and dictation of summary. Signed: ANGIE PACHECO MD 07/22/2017 10:00 AM Dictation software, Flit, used which may contain error for similar sounding words even af ter review. Personal communication requested for any clarification. Portions of this chart may have been copied from previous notes for continuity of care purp ose documented in this encounter Medications at Time [...] | | 17 | | | ol (WILDER ELLIPTA) | | | | | | [...] Progress Notes Conversion Transaction, Provider Unknown - 07/22/2017 12:30 PM PDTFormatting of this note m ight be different from the original. Nurse Progress Note by Trey Wilson RN at 07/22/17 1230 Author: Trey Wilson RN Service: (none) Author Type: Registered Nurse Filed: 07/22/17 1234 Date of Service: 07/22/17 1230 Status: Signed Security Shift Supervisor: Trey Wilson RN (Registered Nurse) Patient transported off floor via wheelchair to discharge home via private vehicle with all belongings. onver brett Transaction, Provider Unknown - 07/22/2017 12:00 PM PDT Nurse Progress Note by Trey Wilson RN at 07/22/17 1200 Author: Trey Wilson RN Service: (none) Author Type: Registered Nurse Filed: 07/22/17 1201 Date of Service: 07/22/17 1200 Status: Signed Security Shift Supervisor: Trey Wilson RN (Registered Nurse) Discharge instructions reviewed with patient and prescriptions given. No questions or jong rns voiced at this time. Patient in no distress and VSS. Will continue to monitor until malissa ent's ride arrives. onver brett Transaction, Provider Unknown - 07/22/2017 12:00 AM PDT Nurse Progress Note by Kaitlyn Morrissey RN at 07/22/17 0000 Author: Kaitlyn Morrissey RN Service: (none) Author Type: Registered Nurse Filed: 07/22/17 0430 Date of Service: 07/22/17 0000 Status: Signed Security Shift Supervisor: Kaitlyn Morrissey RN (Registered Nurse) Patient seen walking hallway, telling another RN he wants to go outside for "fresh air." Mirza espino noted to smell like cigarettes when back in room. Primary RN at bedside discussing wit h patient that if he leaves the floor he must tell his primary nurse and that smoking isn't allowed on campus. Patient stated understanding, denied smoking, then proceeded to take a sh ower. After shower ended, patient was distraught, packing his belongings and saying he was l eaving right away because he "didn't appreciate the way he was being treated." This lead RN had calming discussion with patient, who then decided to stay. This RN assuming care of malissa ent for the night. Kaitlyn Morrissey, RN Monserrat, Angie Zafar MD - 07/21/2017 9:26 AM PDT Progress Notes by Angie Pacheco MD at 07/21/17925 Author: Angie Pacheco MD Service: Hospitalist Author Type: Physician Filed: 07/21/17 1221 Date of Service: 07/21/17925 Status: Signed Security Shift Supervisor: Angie Pacheco MD (Physician) [facility] Service: Hospitalist Progress Note Pt: Slava Anderson AGE/SEX: 51 y.o. male ROOM: [address] [place] [address] : 1965 PCP: Akin Matthews ADMIT DATE: 07/17/2017 TODAY'S DATE: 07/21/2017 Hospital Day/Hospital Course: LOS: 3 days From ID consult note on 07/18: The patient is a 51 y.o.malewith significant past medical history of HIV, follows with Dr. Johnson, from records had spotty medical adherence, on-and-off ART, supposed to be on Brenna trim but was not taking it, COPD, coronavirus URI in December. He reports that he is now t aking Stribild daily since December. He states that every 1-2 years, he gets cellulitis at various parts of his body. He denies prior history of MRSA. He denies trauma, cut or insect bites to the right leg. He started mercado ving malaise 3 days prior to admission but denies having fever, chills or diaphoresis. He wa s not in antibiotics prior to coming into the emergency room on 07/17. He was afebrile when he presented but was tachycardic. WBC was 13,180 with 68 percent neutrophils. Renal function w as normal. Albumin 3.1. MRSA nasal PCR was negative. 2 sets of blood cultures were obtained. Last CD4 count on 03/04 was 213, CD4 percent of 11.2. HIV viral load was 897. I advised for the patient to be admitted to the hospital for IV antibiotics. He was placed on IV Unasyn. Despite IV Unasyn, he reports continuing to have fiery redness at the right le g along with burning sensation. He has remained afebrile with heart rate improved. He has been continued on Stribild. He has been placed on Bactrim for prophylaxis. On 07/18, Unasyn changed to cefazolin/clindamycin SUBJECTIVE: Patient seen and examine. He is lying flat comfortably. Arousable and he said he is not in any kind of pain today. No chest pain, SOB, MERCADO. No cough on recumbency. Had no orthopnea or PND. No Abdominal pain, N/V or fever. Still feeling tired and fatigued. No dizziness or ligh theadedness. Scheduled Medications: DAPTOmycin (CUBICIN) IV 4 mg/kg Intravenous Q24H Bcvjmaq-Ffthe-Uqutqvcl-TenofDF 1 tablet Oral Daily enoxaparin 40 mg Subcutaneous Q24H lactobacillus 1 packet Oral BID levofloxacin 500 mg Oral QDQ lidocaine buffered 1% 0.5 mL Intradermal Once nicotine 1 patch Transdermal Daily nystatin 500,000 Units Oral TID sodium chloride 10 mL Intravenous Q8H sulfamethoxazole-trimethoprim 1 tablet Oral Once per day on Fri Continuous Infusions PRN Medications acetaminophen OR acetaminophen, albuterol, ondansetron OR ondansetron, oxyCODONE-ac etaminophen OR oxyCODONE-acetaminophen, polyethylene glycol, zolpidem Allergy: No Known Allergies OBJECTIVE: Vitals: Patient Vitals for the past 24 hrs: BP Temp Temp src Pulse Resp SpO2 07/21/17 0802 125/88 98.1 F (36.7 C) Oral 90 16 96 % 07/21/17 0325 118/70 99.2 F (37.3 C) Oral 108 18 95 % 07/20/17 2246 134/81 97 F (36.1 C) Axillary 89 18 99 % 07/20/17 1913 114/86 99.1 F (37.3 C) Oral 115 18 99 % 07/20/17 1541 134/66 97.7 F (36.5 C) Oral 93 18 100 % 07/20/17 1107 124/85 98.6 F (37 C) Oral 92 18 96 % I&O Detailed Table: Intake/Output Summary (Last 24 hours) at 07/21/17 09 Last data filed at 07/21/17 0804 Gross per 24 hour Intake 1200 ml Output 1900 ml Net -700 ml Patient Vitals for the past 96 hrs: Weight 07/18/17 0420 98 kg (216 lb) 07/18/17 0320 96.6 kg (212 lb 15.4 oz) 07/17/17 1542 96.6 kg (212 lb 15.4 oz) Hemodynamics Last 24hrs: Physical Examination: Constitutional: He is sleeping but arousable. Answering questions appropriately HEENT: Neck supple, no JVD, non icteric sclera. Cardiovascular: Normal rate, regular rhythm, normal heart sounds with S1 and S2, and intact distal pulses. Exam reveals no gallop and no friction rub. No murmur heard. Pulmonary/Chest: Effort normal and breath sounds normal. No stridor. No respiratory distres s. no wheezes. no rales. exhibits no tenderness. Abdominal: Soft. Bowel sounds are normal. exhibits no distension and no mass. There is no t enderness. There is no rebound and no guarding. Extremeties/Musculoskeletal: Redness on the right leg. He had some wrinkles on the leg as w ell today. Neurological: Alert and oriented to person, place, and time. Has normal reflexes. No cran ial nerve deficit. Exhibits normal muscle tone. Coordination normal. Skin: Redness on the right leg is getting better. Psychiatric: Has a normal mood and affect. Behavior is normal. Judgment normal. Not suicida l LABS: Recent Labs Lab 07/21/17 0444 07/20/17 0501 07/19/17 0844 WBC 6.73 6.52 9.38 HGB 12.9* 13.0* 13.5 HCT 38.0* 39.5 40.6 PLT 262 203 206 NEUTOPHILPCT 62.13 64.14 73.46 MONOPCT 8.02 7.04 5.22 Recent Labs Lab 07/21/17 0444 07/20/17 0501 07/19/17 0844 NA 132* 134* 135 K 4.1 4.5 4.1 CL 99 99 102 CO2 24 26 24 BUN 15 14 12 CREATININE 0.8 0.8 0.96 PROT 7.9 8.0 8.0 BILITOT 0.3 0.2 0.6 ALT 66* 92* 103* AST 28 57* 160* Phosphorus: Lab Results Component Value Date PHOS 3.0 07/18/2017 Recent Labs Lab 07/21/17 0444 07/20/17 0501 07/19/17 0844 MG 2.0 2.3 2.2 Results Procedure Component Value Units Date/Time Blood Culture Set 1 [[id number]] Collected: 07/17/17 1824 Specimen: Blood from Blood, peripheral draw Updated: 07/19/17732 Specimen Description BLOOD, PERIPHERAL DRAW SPECIAL REQUESTS RAC CULTURE NO GROWTH 2 DAYS Blood Culture Set 2 [[id number]] Collected: 07/17/17 1908 Specimen: Blood from Blood, peripheral draw Updated: 07/19/17732 Specimen Description BLOOD, PERIPHERAL DRAW SPECIAL REQUESTS LEFT HAND CULTURE NO GROWTH 2 DAYS PROBLEM LIST Principal Problem: Sepsis ([facility]) Active Problems: HIV (human immunodeficiency virus infection) ([facility]) Depression with anxiety Chronic back pain Hyperlipidemia Cellulitis and abscess of leg, except foot COPD (chronic obstructive pulmonary disease) ([facility]) ASSESSMENT & PLAN 51 y.o.malewith significant past medical history of HIV, follows with Dr. Johnson, from records had spotty medical adherence, on-and-off ART, supposed to be on Bactrim but was not taking it, COPD, coronavirus URI in December. Principal Problem: Sepsis ([facility]) due to right lower extremity cellulitis Looks like his condition is getting better. Redness is improved. He was septic when he cam e to the hospital with fever, tachycardia and leukocytosis. He received 2 days of cefazolin and clindamycin but according to the infectious diseases not getting better. Started on dapt omycin and Levaquin day #3. HIV (human immunodeficiency virus infection) ([facility]) Last CD4 count was 213 in February this year. Management per Dr. Tipton. Depression with anxiety He is not depressed at this time. Chronic back pain His pain is better controlled Hyperlipidemia Unspecified not on statin at this time COPD (chronic obstructive pulmonary disease) (HCC) Appropriately controlled Hypokalemia Improved Patient diagnosed with: , and I agree with the following nutritional recommendations: ANGIE PACHECO MD, FACP 07/21/2017 9:26 AM Dictation software, Flit, used which may contain error for similar sounding words even af ter review. Personal communication requested for any clarification. Portions of this chart may have been copied from previous notes for continuity of care purp ose onversion Transac tion, Provider Unknown - 07/21/2017 9:11 AM PDTFormatting of this note might be different f rom the original. Case Management by LANDY Hernandez at 07/21/17910 Author: LANDY Hernandez Service: (none) Author Type: Chairman Of The Board Filed: 07/21/17911 Date of Service: 07/21/17910 Status: Signed Security Shift Supervisor: LANDY Hernandez (Chairman Of The Board) Discharge planning: Pt will return home with possible IV Abx. athleen Prakash MD - 07/21/2017 7:32 AM PDT Progress Notes by Kathleen Tipton MD at 07/21/17731 Author: Kathleen Tipton MD Service: Infectious Disease Author Type: Physician Filed: 07/22/17712 Date of Service: 07/21/17731 Status: Signed Security Shift Supervisor: Kathleen Tipton MD (Physician) [facility] Service: Infectious Disease Progress Note Hospital Day: LOS: 3 days Post-Op Day: * No surgery found * SUBJECTIVE Patient Summary: RE: Right leg cellulitis From ID consult note on 07/18: The patient is a 51 y.o. male with significant past medical h istory of HIV, follows with Dr. Johnson, from records had spotty medical adherence, on-and-of f ART, supposed to be on Bactrim but was not taking it, COPD, coronavirus URI in December. He reports that he is now taking Stribild daily since December. He states that every 1-2 years, he gets cellulitis at various parts of his body. He denies prior history of MRSA. He denies trauma, cut or insect bites to the right leg. He started mercado ving malaise 3 days prior to admission but denies having fever, chills or diaphoresis. He wa s not in antibiotics prior to coming into the emergency room on 07/17. He was afebrile when he presented but was tachycardic. WBC was 13,180 with 68 percent neutrophils. Renal function w as normal. Albumin 3.1. MRSA nasal PCR was negative. 2 sets of blood cultures were obtained. Last CD4 count on 03/04 was 213, CD4 percent of 11.2. HIV viral load was 897. I advised for the patient to be admitted to the hospital for IV antibiotics. He was placed on IV Unasyn. Despite IV Unasyn, he reports continuing to have fiery redness at the right le g along with burning sensation. He has remained afebrile with heart rate improved. He has been continued on Stribild. He has been placed on Bactrim for prophylaxis. On 07/18, Unasyn changed to cefazolin/clindamycin Events Overnight: Feeling better today. Noticeable improvement in terms of circumfere ntial erythema at the right leg. No further lymphangitic streaking. Pain at the right leg is better today. No fever, chills. No myalgias No new skin lesions No nausea, vomiting, diarrhea Scheduled Medications DAPTOmycin (CUBICIN) IV 4 mg/kg Intravenous Q24H Orwayep-Wdqsy-Dggxwzot-TenofDF 1 tablet Oral Daily enoxaparin 40 mg Subcutaneous Q24H lactobacillus 1 packet Oral BID levofloxacin 500 mg Oral QDQ lidocaine buffered 1% 0.5 mL Intradermal Once nicotine 1 patch Transdermal Daily nystatin 500,000 Units Oral TID sodium chloride 10 mL Intravenous Q8H sulfamethoxazole-trimethoprim 1 tablet Oral Once per day on Fri Continuous Infusions PRN Medications acetaminophen OR acetaminophen, albuterol, ondansetron OR ondansetron, oxyCODONE-ac etaminophen OR oxyCODONE-acetaminophen, polyethylene glycol, zolpidem OBJECTIVE Vital Signs: BP 118/70 (BP Location: Left upper arm) | Pulse 108 | Temp 99.2 F (37.3 C) (Oral) | Resp 18 | Ht 1.727 m (5' 8") | Wt 98 kg (216 lb) | SpO2 95% | BMI 32.84 kg/m Temp: [97.8 F (36.6 C)-98.3 F (36.8 C)] 98.2 F (36.8 C) (07/22 304) BP: (121-156)/(70-93) 130/70 (07/22 304) Heart Rate: [90-109] 105 (07/22 304) Resp: [16-18] 16 (07/22 304) SpO2: [94 %-100 %] 94 % (07/22 304) Physical Exam Vital signs have been reviewed Gen.: Pleasant male, not in acute distress HEENT: Normocephalic. Anicteric sclerae. No conjunctival lesions. No nasal mucosal secretio ns. No oral thrush or ulcers. Neck is supple with no cervical lymphadenopathy Lungs: No adventitious breath sounds Cardiovascular: Normal rate regular. No murmur or rubs Abdomen: No distention. Soft. No tenderness or palpable masses Skin: No diffuse rash Musculoskeletal: No inflamed looking joints Right leg: Swelling decreased. Circumferential erythema fading. Warmth and tenderness to p alpation - improved. No vesicles, bullous secretions, drainage, open ulcers. Lymphangitic streaking to thigh noted on 07/19 - resolved Neurologic: Oriented 3, no focal weakness or numbness Psychiatric: Cooperative for the clinical evaluation DATA Reviewed PROBLEM LIST Principal Problem: Sepsis ([facility]) Active Problems: HIV (human immunodeficiency virus infection) ([facility]) Depression with anxiety Chronic back pain Hyperlipidemia Cellulitis and abscess of leg, except foot COPD (chronic obstructive pulmonary disease) ([facility]) ASSESSMENT & PLAN Right leg cellulitis -Appearance is consistent with streptococcal erysipela; MRSA nasal PCR negative -Fever and tachycardia improved; WBC normal -There was not much improvement of the right leg with IV Unasyn and worsened with lymphang itic streaking to proximal thigh while on IV cefazolin and clindamycin. Good clinical improvement on IV daptomycin 4 mg/kg q 24 and po levofloxacin, day 3. If h e continues to do well tomorrow, may transition to po doxycycline/levofloxacin for 10 days t otal antibiotic Rx -Leg elevation -Right lower extremity ultrasound negative for deep vein thrombosis HIV -Last CD4 count in February was 213 with low viremia -Records indicate patient had not been fully adherent in the past; he now reports that he has been taking Stribild daily. We will continue Stribild. We will continue Bactrim for now for PCP prophylaxis and arrange for patient to continue HIV follow-up care with Dr. Alex thomas outpatient Case discussed with Dr. Pacheco Code Status: Full Code KATHLEEN TIPTON MD 07/21/2017 alik, Angie thomas MD - 07/20/2017 8:15 AM PDT . Progress Notes by Angie Pacheco MD at 07/20/17814 Author: Angie Pacheco MD Service: Hospitalist Author Type: Physician Filed: 07/20/17 1003 Date of Service: 07/20/17814 Status: Signed Security Shift Supervisor: Angie Pacheco MD (Physician) [facility] Service: Hospitalist Progress Note Pt: Slava Anderson AGE/SEX: 51 y.o. male ROOM: [address] [place] [address] : 1965 PCP: Akin Matthews ADMIT DATE: 07/17/2017 TODAY'S DATE: 07/20/2017 Hospital Day/Hospital Course: LOS: 2 days From ID consult note on 07/18: The patient is a 51 y.o.malewith significant past medical history of HIV, follows with Dr. Johnson, from records had spotty medical adherence, on-and-off ART, supposed to be on Brenna trim but was not taking it, COPD, coronavirus URI in December. He reports that he is now t aking Stribild daily since December. He states that every 1-2 years, he gets cellulitis at various parts of his body. He denies prior history of MRSA. He denies trauma, cut or insect bites to the right leg. He started mercado ving malaise 3 days prior to admission but denies having fever, chills or diaphoresis. He wa s not in antibiotics prior to coming into the emergency room on 9/7. He was afebrile when he presented but was tachycardic. WBC was 13,180 with 68 percent neutrophils. Renal function w as normal. Albumin 3.1. MRSA nasal PCR was negative. 2 sets of blood cultures were obtained. Last CD4 count on 03/04 was 213, CD4 percent of 11.2. HIV viral load was 897. I advised for the patient to be admitted to the hospital for IV antibiotics. He was placed on IV Unasyn. Despite IV Unasyn, he reports continuing to have fiery redness at the right le g along with burning sensation. He has remained afebrile with heart rate improved. He has been continued on Stribild. He has been placed on Bactrim for prophylaxis. On 07/18, Unasyn changed to cefazolin/clindamycin SUBJECTIVE: Patient seen and examine. He said his leg pain has significantly improved. Low-grade fever has improved as well. No chest pain, SOB, MERCADO. No cough on recumbency. Had no orthopnea or P ND. No Abdominal pain, N/V or fever. Still feeling tired and fatigued. No dizziness or light headedness. Scheduled Medications: DAPTOmycin (CUBICIN) IV 4 mg/kg Intravenous Q24H Ufdajfh-Zhsos-Mqfqeedd-TenofDF 1 tablet Oral Daily enoxaparin 40 mg Subcutaneous Q24H lactobacillus 1 packet Oral BID levofloxacin 500 mg Oral QDQ lidocaine buffered 1% 0.5 mL Intradermal Once nicotine 1 patch Transdermal Daily nystatin 500,000 Units Oral TID sodium chloride 10 mL Intravenous Q8H [START ON 07/21/2017] sulfamethoxazole-trimethoprim 1 tablet Oral Once per day on Fri ed Fri Continuous Infusions PRN Medications acetaminophen OR acetaminophen, albuterol, ondansetron OR ondansetron, oxyCODONE-ac etaminophen OR oxyCODONE-acetaminophen, polyethylene glycol, zolpidem Allergy: No Known Allergies OBJECTIVE: Vitals: Patient Vitals for the past 24 hrs: BP Temp Temp src Pulse Resp SpO2 07/20/17 0713 127/82 99.5 F (37.5 C) Oral 98 20 95 % 07/20/17 0302 127/87 98.1 F (36.7 C) Oral 89 18 97 % 07/19/17 2315 106/67 98 F (36.7 C) Oral 93 20 96 % 07/19/17 1955 133/80 99.2 F (37.3 C) Oral 94 18 95 % 07/19/17 1610 119/81 97.9 F (36.6 C) Oral 92 20 99 % 07/19/17 1212 129/76 98.1 F (36.7 C) Oral 108 18 99 % 07/19/17 0824 140/82 98.4 F (36.9 C) Oral 104 18 99 % I&O Detailed Table: Intake/Output Summary (Last 24 hours) at 07/20/17 0815 Last data filed at 07/20/17 0716 Gross per 24 hour Intake 240 ml Output 1600 ml Net -1360 ml Patient Vitals for the past 96 hrs: Weight 07/18/17 0420 98 kg (216 lb) 07/18/17 0320 96.6 kg (212 lb 15.4 oz) 07/17/17 1542 96.6 kg (212 lb 15.4 oz) Hemodynamics Last 24hrs: Physical Examination: Constitutional: He is awake and alert and talking to me appropriately. HEENT: Neck supple, no JVD, non icteric sclera. Cardiovascular: Normal rate, regular rhythm, normal heart sounds with S1 and S2, and intact distal pulses. Exam reveals no gallop and no friction rub. No murmur heard. Pulmonary/Chest: Effort normal and breath sounds normal. No stridor. No respiratory distres s. no wheezes. no rales. exhibits no tenderness. Abdominal: Soft. Bowel sounds are normal. exhibits no distension and no mass. There is no t enderness. There is no rebound and no guarding. Extremeties/Musculoskeletal: Redness on the right leg. He had some wrinkles on the leg as w ell today. Neurological: Alert and oriented to person, place, and time. Has normal reflexes. No cran ial nerve deficit. Exhibits normal muscle tone. Coordination normal. Skin: Redness on the right leg. Psychiatric: Has a normal mood and affect. Behavior is normal. Judgment normal. Not suicida l LABS: Recent Labs Lab 07/20/17 0501 07/19/17 0844 07/18/17 0551 WBC 6.52 9.38 9.01 HGB 13.0* 13.5 13.1* HCT 39.5 40.6 39.0 PLT 203 206 212 NEUTOPHILPCT 64.14 73.46 73.29 MONOPCT 7.04 5.22 4.94 Recent Labs Lab 07/20/17 0501 07/19/17 0844 07/18/17 0551 07/17/17 1824 NA 134* 135 134* 133* K 4.5 4.1 3.2* 3.6 CL 99 102 100 97* CO2 26 24 27 29 BUN 14 12 16 23 CREATININE 0.8 0.96 0.94 1.0 PROT 8.0 8.0 -- 9.0* BILITOT 0.2 0.6 -- 0.4 ALT 92* 103* -- 55 AST 57* 160* -- 48* Phosphorus: Lab Results Component Value Date PHOS 3.0 07/18/2017 Recent Labs Lab 07/20/17 0501 07/19/17 0844 07/18/17 0551 MG 2.3 2.2 2.1 Results Procedure Component Value Units Date/Time Blood Culture Set 1 [[id number]] Collected: 07/17/17 1824 Specimen: Blood from Blood, peripheral draw Updated: 07/19/17732 Specimen Description BLOOD, PERIPHERAL DRAW SPECIAL REQUESTS RAC CULTURE NO GROWTH 2 DAYS Blood Culture Set 2 [[id number]] Collected: 07/17/17 1908 Specimen: Blood from Blood, peripheral draw Updated: 07/19/1733 Specimen Description BLOOD, PERIPHERAL DRAW SPECIAL REQUESTS LEFT HAND CULTURE NO GROWTH 2 DAYS MRSA by PCR [[id number]] Collected: 07/17/17 194 Specimen: Nasopharyngeal from Nares(Nose) Updated: 07/17/17 2225 SOURCE NARES(NOSE) MRSA PCR NEGATIVE PROBLEM LIST Principal Problem: Sepsis ([facility]) Active Problems: HIV (human immunodeficiency virus infection) ([facility]) Depression with anxiety Chronic back pain Hyperlipidemia Cellulitis and abscess of leg, except foot COPD (chronic obstructive pulmonary disease) ([facility]) ASSESSMENT & PLAN 51 y.o.malewith significant past medical history of HIV, follows with Dr. Johnson, from records had spotty medical adherence, on-and-off ART, supposed to be on Bactrim but was not taking it, COPD, coronavirus URI in December. Principal Problem: Sepsis ([facility]) due to right lower extremity cellulitis He was septic when he came to the hospital with fever, tachycardia and leukocytosis. He re ceived 2 days of cefazolin and clindamycin but according to the infectious diseases not gett ing better. Started on daptomycin and Levaquin day #2. It looks better today. HIV (human immunodeficiency virus infection) ([facility]) Last CD4 count was 213 in February this year. Management per Dr. Tipton Depression with anxiety He is not depressed at this time. Chronic back pain Well controlled Hyperlipidemia Unspecified not on statin at this time COPD (chronic obstructive pulmonary disease) ([facility]) Appropriately controlled Hypokalemia Improved Patient diagnosed with: , and I agree with the following nutritional recommendations: ANGIE PACHECO MD, FACP 07/20/2017 8:15 AM Dictation software, Flit, used which may contain error for similar sounding words even af ter review. Personal communication requested for any clarification. Portions of this chart may have been copied from previous notes for continuity of care purp ose aranada, Kathleen Mandujano MD - 07/20/2017 7:25 AM PDT . Progress Notes by Kathleen Tipton MD at 07/20/17724 Author: Kathleen Tipton MD Service: Infectious Disease Author Type: Physician Filed: 07/20/17 1545 Date of Service: 07/20/17724 Status: Signed Security Shift Supervisor: Kathleen Tipton MD (Physician) [facility] Service: Infectious Disease Progress Note Hospital Day: LOS: 2 days Post-Op Day: * No surgery found * SUBJECTIVE Patient Summary: RE: Right leg cellulitis From ID consult note on 07/18: The patient is a 51 y.o. male with significant past medical h istory of HIV, follows with Dr. Johnson, from records had spotty medical adherence, on-and-of f ART, supposed to be on Bactrim but was not taking it, COPD, coronavirus URI in December. He reports that he is now taking Stribild daily since December. He states that every 1-2 years, he gets cellulitis at various parts of his body. He denies prior history of MRSA. He denies trauma, cut or insect bites to the right leg. He started mercado ving malaise 3 days prior to admission but denies having fever, chills or diaphoresis. He wa s not in antibiotics prior to coming into the emergency room on 07/17. He was afebrile when he presented but was tachycardic. WBC was 13,180 with 68 percent neutrophils. Renal function w as normal. Albumin 3.1. MRSA nasal PCR was negative. 2 sets of blood cultures were obtained. Last CD4 count on 03/04 was 213, CD4 percent of 11.2. HIV viral load was 897. I advised for the patient to be admitted to the hospital for IV antibiotics. He was placed on IV Unasyn. Despite IV Unasyn, he reports continuing to have fiery redness at the right le g along with burning sensation. He has remained afebrile with heart rate improved. He has been continued on Stribild. He has been placed on Bactrim for prophylaxis. On 07/18, Unasyn changed to cefazolin/clindamycin Events Overnight: Fever, tachycardia better. Woke up shivering Mild pain at right leg No nausea, vomiting, diarrhea No myalgias Scheduled Medications DAPTOmycin (CUBICIN) IV 4 mg/kg Intravenous Q24H Kaiujkh-Fsgvr-Pjnxgqui-TenofDF 1 tablet Oral Daily enoxaparin 40 mg Subcutaneous Q24H lactobacillus 1 packet Oral BID levofloxacin 500 mg Oral QDQ lidocaine buffered 1% 0.5 mL Intradermal Once nicotine 1 patch Transdermal Daily nystatin 500,000 Units Oral TID sodium chloride 10 mL Intravenous Q8H [START ON 07/21/2017] sulfamethoxazole-trimethoprim 1 tablet Oral Once per day on Fri ed Fri Continuous Infusions PRN Medications acetaminophen OR acetaminophen, albuterol, ondansetron OR ondansetron, oxyCODONE-ac etaminophen OR oxyCODONE-acetaminophen, polyethylene glycol, zolpidem OBJECTIVE Vital Signs: BP 127/82 (BP Location: Left upper arm) | Pulse 98 | Temp 99.5 F (37.5 C) (Oral) | R joy 20 | Ht 1.727 m (5' 8") | Wt 98 kg (216 lb) | SpO2 95% | BMI 32.84 kg/m Temp: [97.9 F (36.6 C)-99.5 F (37.5 C)] 98.6 F (37 C) (07/20 1107) BP: (106-133)/(67-87) 124/85 (07/20 1107) Heart Rate: [89-98] 92 (07/20 1107) Resp: [18-20] 18 (07/20 1107) SpO2: [95 %-99 %] 96 % (07/20 1107) Physical Exam Vital signs have been reviewed Gen.: Pleasant male, not in acute distress HEENT: Normocephalic. Anicteric sclerae. No conjunctival lesions. No nasal mucosal secretio ns. No oral thrush or ulcers. Neck is supple with no cervical lymphadenopathy Lungs: No adventitious breath sounds Cardiovascular: Normal rate regular. No murmur or rubs Abdomen: No distention. Soft. No tenderness or palpable masses Skin: No diffuse rash Musculoskeletal: No inflamed looking joints Right leg: Swelling decreased. Circumferential erythema noted, slightly better from yesterd ay. Warm and tender to palpation. No vesicles, bullous secretions, drainage, open ulcers. Lymphangitic streaking to thigh noted on 07/19 - resolved Neurologic: Oriented 3, no focal weakness or numbness Psychiatric: Cooperative for the clinical evaluation DATA CBC: Lab Results Component Value Date WBC 6.52 07/20/2017 RBC 4.63 07/20/2017 HGB 13.0 (L) 07/20/2017 HCT 39.5 07/20/2017 MCV 85.4 07/20/2017 MCH 28.0 07/20/2017 MCHC 32.8 07/20/2017 RDW 44.6 07/20/2017 PLT 203 07/20/2017 MPV 8.9 07/20/2017 DIFFTYPE AUTOMATED 07/20/2017 WBC: Lab Results Component Value Date WBC 6.52 07/20/2017 NEUTABSMAN 2.13 03/04/2017 NEUTROABS 4.18 07/20/2017 NEUTROMAN 43 03/04/2017 LYMPHOABS 2.13 03/04/2017 LYMPHOMAN 43 03/04/2017 LYMPHSABS 1.63 07/20/2017 LYMPHOPCT 24.96 07/20/2017 MONOABSMAN 0.50 03/04/2017 MONOMAN 10 03/04/2017 MONOPCT 7.04 07/20/2017 EOSINOABS 0.20 03/04/2017 EOSINOMAN 4 03/04/2017 EOSABS 0.20 07/20/2017 EOSPCT 3.06 07/20/2017 BASOABSMAN 0.04 05/23/2015 BASOSABS 0.05 07/20/2017 BASOSMAN 1 05/23/2015 BASOPCT 0.80 07/20/2017 PLTEST ADEQUATE 05/23/2015 BANDSPCT 1 05/23/2015 METAABS 0.05 (H) 03/03/2017 METAPCT 1 03/03/2017 ATYLMPCT 8 04/19/2015 ATYLYMABS 0.48 (H) 04/19/2015 COMDIFF SLIDE SCANNED, AGREES WITH AUTOMATED RESULTS. 10/22/2014 CMP: Lab Results Component Value Date NA 134 (L) 07/20/2017 K 4.5 07/20/2017 CL 99 07/20/2017 CO2 26 07/20/2017 ANIONGAP 14 07/20/2017 GLUF 163 (H) 07/20/2017 BUN 14 07/20/2017 CREATININE 0.8 07/20/2017 BCR 18 07/20/2017 CA 9.0 07/20/2017 PROT 8.0 07/20/2017 ALB 2.5 (L) 07/20/2017 GLOB 5.5 (H) 07/20/2017 BILITOT 0.2 07/20/2017 ALP 200 (H) 07/20/2017 AST 57 (H) 07/20/2017 ALT 92 (H) 07/20/2017 EGFR >60 07/20/2017 CPK: Lab Results Component Value Date CKTOTAL 52 (L) 07/20/2017 Component Latest Ref Rng & Units 07/18/2017 5:51 AM PROCALCITONIN <0.5 ng/mL 0.88 (H) Microbiology Data: 07/17 Blood cultures with no growth to date 07/17 MRSA nasal PCR negative PROBLEM LIST Principal Problem: Sepsis ([facility]) Active Problems: HIV (human immunodeficiency virus infection) ([facility]) Depression with anxiety Chronic back pain Hyperlipidemia Cellulitis and abscess of leg, except foot COPD (chronic obstructive pulmonary disease) ([facility]) ASSESSMENT & PLAN Right leg cellulitis -Appearance is consistent with streptococcal erysipela; MRSA nasal PCR negative -Fever and tachycardia improved; WBC normal -There was not much improvement of the right leg with IV Unasyn and worsened with lymphang itic streaking to proximal thigh while on IV cefazolin and clindamycin. Lymphangitic streaking better today Monitor progress on IV daptomycin 4 mg/kg q 24 and po levofloxacin; will determine tomorr ow if he can go home on IV vs po antibiotics -Leg elevation -Right lower extremity ultrasound negative for deep vein thrombosis HIV -Last CD4 count in February was 213 with low viremia -Records indicate patient had not been fully adherent in the past; he now reports that he has been taking Stribild daily. We will continue Stribild. We will continue Bactrim for now for PCP prophylaxis and arrange for patient to continue HIV follow-up care with Dr. Alex thomas outpatient Code Status: Full Code KATHLEEN TIPTON MD 07/20/2017 onversion Tamayo saction, Provider Unknown - 07/19/2017 11:57 AM PDTFormatting of this note might be differen t from the original. Case Management by Trisha Ludwig RN at 07/19/17 1157 Author: Trisha Ludwig RN Service: (none) Author Type: Registered Nurse Filed: 07/19/17 1201 Date of Service: 07/19/17 1157 Status: Signed Security Shift Supervisor: Trisha Ludwig RN (Registered Nurse) 07/19/17 1132 Discharge Planning Evaluation Admitting Diagnosis R L Cellulitis Readmission No Living Arrangements Alone Support Systems Friends/neighbors Type of Residence Private residence Independent with ADL's Yes Independent with Mobility Yes Mental Status Oriented Prior functional status independent Anticipated Discharge Plan Post Acute Care Needs Other (comment) (awaiting MD decision on antibiotics either IV or PO) Plan communicated to patient/family Yes Resources Financial concerns No Transportation issues Yes;Comment (pt unsure if he will be able to coordinate ride, CM will [facility]) Patient/Family concerns No Prescription Plan Yes Previous home health equipment No Vascular access device No Ostomy/Drains/Appliances Comment (pt currently on IV antibiotics unsure if pt will transition ) Anticipated Disposition Facility Type Home Dealmaker Name and Phone Number [facility] [address] [facility] Unit Phone Number [phone] Met with pt and discussed discharge planning, Pt is a 51 y.o., male. Pt advised that prior to this admission pt was living independently. Pt lives alone and is ambulatory. Pt braun snot use DME home O2, dialysis or ati-coagulation. Pt is currently receiving IV antibiotics, uns ure if pt will transition to PO. Cm will continue to follow. Pt advises that he may leave on PO in the next few days. Pt also advised that he is unsure if his friend can transport on d /c. Pt does not use [facility], CM will check on P4P. Patient's PCP is: Patient's insurance:[employer] medicaid Coverage concerns: none at this time Medication coverage/concerns: none at this time Community resources utilized / needed: Assistance in transportation: CM will check if pt has P4P benefit Identification of any specific education / training: TBD Barriers to Discharge / Alternative housing needed: none at this time Anticipated DCP: home awaiting ID recommendations on IV infusion vs PO Summer R Oziel Kathleen Cyr MD - 07/19/2017 10:34 AM PDT Progress Notes by Kathleen Tipton MD at 07/19/17 1034 Author: Kathleen Tipton MD Service: Infectious Disease Author Type: Physician Filed: 07/19/17 1300 Date of Service: 07/19/17 1034 Status: Signed Security Shift Supervisor: Kathleen Tipton MD (Physician) [facility] Service: Infectious Disease Progress Note Hospital Day: LOS: 1 day Post-Op Day: * No surgery found * SUBJECTIVE Patient Summary: RE: Right leg cellulitis From ID consult note on 07/18: The patient is a 51 y.o. male with significant past medical h istory of HIV, follows with Dr. Johnson, from records had spotty medical adherence, on-and-of f ART, supposed to be on Bactrim but was not taking it, COPD, coronavirus URI in December. He reports that he is now taking Stribild daily since December. He states that every 1-2 years, he gets cellulitis at various parts of his body. He denies prior history of MRSA. He denies trauma, cut or insect bites to the right leg. He started mercado ving malaise 3 days prior to admission but denies having fever, chills or diaphoresis. He wa s not in antibiotics prior to coming into the emergency room on 07/17. He was afebrile when he presented but was tachycardic. WBC was 13,180 with 68 percent neutrophils. Renal function w as normal. Albumin 3.1. MRSA nasal PCR was negative. 2 sets of blood cultures were obtained. Last CD4 count on 03/04 was 213, CD4 percent of 11.2. HIV viral load was 897. I advised for the patient to be admitted to the hospital for IV antibiotics. He was placed on IV Unasyn. Despite IV Unasyn, he reports continuing to have fiery redness at the right le g along with burning sensation. He has remained afebrile with heart rate improved. He has been continued on Stribild. He has been placed on Bactrim for prophylaxis. On 07/18, Unasyn changed to cefazolin/clindamycin Events Overnight: Tmax 100.2F in 24 hours; afebrile this morning. Right leg pain - not worsening Redness has moved up to right thigh No cough; dyspnea No abdominal pain, nausea, vomiting, diarrhea No myalgias Scheduled Medications ceFAZolin 2 g Intravenous Q8H clindamycin 600 mg Intravenous Q8H Quahgwz-Jsufl-Jsfwhxok-TenofDF 1 tablet Oral Daily enoxaparin 40 mg Subcutaneous Q24H lactobacillus 1 packet Oral BID lidocaine buffered 1% 0.5 mL Intradermal Once nicotine 1 patch Transdermal Daily nystatin 500,000 Units Oral TID sodium chloride 10 mL Intravenous Q8H [START ON 07/21/2017] sulfamethoxazole-trimethoprim 1 tablet Oral Once per day on Fri ed Fri Continuous Infusions PRN Medications acetaminophen OR acetaminophen, albuterol, ondansetron OR ondansetron, oxyCODONE-ac etaminophen OR oxyCODONE-acetaminophen, polyethylene glycol, zolpidem OBJECTIVE Vital Signs: BP 140/82 (BP Location: Left upper arm) | Pulse 104 | Temp 98.4 F (36.9 C) (Oral) | Resp 18 | Ht 1.727 m (5' 8") | Wt 98 kg (216 lb) | SpO2 99% | BMI 32.84 kg/m Temp: [97.5 F (36.4 C)-100.2 F (37.9 C)] 98.4 F (36.9 C) (07/19 824) BP: (108-140)/(69-92) 140/82 (07/19 824) Heart Rate: [98-113] 104 (07/19 824) Resp: [18-20] 18 (07/19 824) SpO2: [94 %-100 %] 99 % (07/19 824) Physical Exam Vital signs have been reviewed Gen.: Pleasant male, not in acute distress HEENT: Normocephalic. Anicteric sclerae. No conjunctival lesions. No nasal mucosal secretio ns. No oral thrush or ulcers. Neck is supple with no cervical lymphadenopathy Lungs: No adventitious breath sounds Cardiovascular: Slightly tachycardic (HR better from admission), regular. No murmur or rubs Abdomen: No distention. Soft. No tenderness or palpable masses Skin: No diffuse rash Musculoskeletal: No inflamed looking joints Right leg: Moderately diffusely swollen. Circumferential erythema noted: Bright red/erysipe la appearance - not much change from yesterday. Warm and tender to palpation. No vesicles, bullous secretions, drainage, open ulcers. Erythema spread beyond marked area with lymphang itic streaking to thigh Neurologic: Oriented 3, no focal weakness or numbness Psychiatric: Cooperative for the clinical evaluation DATA CBC: Lab Results Component Value Date WBC 9.38 07/19/2017 RBC 4.73 07/19/2017 HGB 13.5 07/19/2017 HCT 40.6 07/19/2017 MCV 85.8 07/19/2017 MCH 28.6 07/19/2017 MCHC 33.3 07/19/2017 RDW 45.1 07/19/2017 PLT 206 07/19/2017 MPV 9.0 07/19/2017 DIFFTYPE AUTOMATED 07/19/2017 WBC: Lab Results Component Value Date WBC 9.38 07/19/2017 NEUTABSMAN 2.13 03/04/2017 NEUTROABS 6.89 07/19/2017 NEUTROMAN 43 03/04/2017 LYMPHOABS 2.13 03/04/2017 LYMPHOMAN 43 03/04/2017 LYMPHSABS 1.82 07/19/2017 LYMPHOPCT 19.45 07/19/2017 MONOABSMAN 0.50 03/04/2017 MONOMAN 10 03/04/2017 MONOPCT 5.22 07/19/2017 EOSINOABS 0.20 03/04/2017 EOSINOMAN 4 03/04/2017 EOSABS 0.13 07/19/2017 EOSPCT 1.41 07/19/2017 BASOABSMAN 0.04 05/23/2015 BASOSABS 0.04 07/19/2017 BASOSMAN 1 05/23/2015 BASOPCT 0.46 07/19/2017 PLTEST ADEQUATE 05/23/2015 BANDSPCT 1 05/23/2015 METAABS 0.05 (H) 03/03/2017 METAPCT 1 03/03/2017 ATYLMPCT 8 04/19/2015 ATYLYMABS 0.48 (H) 04/19/2015 COMDIFF SLIDE SCANNED, AGREES WITH AUTOMATED RESULTS. 10/22/2014 CMP: Lab Results Component Value Date NA 134 (L) 07/18/2017 K 3.2 (L) 07/18/2017 CL 100 07/18/2017 CO2 27 07/18/2017 ANIONGAP 11 07/18/2017 GLUF 132 (H) 07/18/2017 BUN 16 07/18/2017 CREATININE 0.94 07/18/2017 BCR 18 07/18/2017 CA 7.9 (L) 07/18/2017 PROT 9.0 (H) 07/17/2017 ALB 3.1 (L) 07/17/2017 GLOB 5.9 (H) 07/17/2017 BILITOT 0.4 07/17/2017 ALP 132 (H) 07/17/2017 AST 48 (H) 07/17/2017 ALT 55 07/17/2017 EGFR >60 07/18/2017 Microbiology Data: 07/17 Blood cultures with no growth to date 07/17 MRSA nasal PCR negative PROBLEM LIST Principal Problem: Sepsis (HCC) Active Problems: HIV (human immunodeficiency virus infection) ([facility]) Depression with anxiety Chronic back pain Hyperlipidemia Cellulitis and abscess of leg, except foot COPD (chronic obstructive pulmonary disease) ([facility]) ASSESSMENT & PLAN Right leg cellulitis -Appearance is consistent with streptococcal erysipela; MRSA nasal PCR negative -Patient was tachycardic but heart rate is better today. He has low grade fever with stabl e blood pressure and normal WBC -There has not been much improvement of the right leg with IV Unasyn and worse with IV cef azolin and clindamycin. Lymphangitic streaking noted today to proximal thigh. Nursing stachristiane grande will damaris current area of involvement Expand antibiotic Rx to IV daptomycin 4 mg/kg q 24 and levofloxacin 500 mg q 24 -Leg elevation -Right lower extremity ultrasound negative for deep vein thrombosis HIV -Last CD4 count in February was 213 with low viremia -Records indicate patient had not been fully adherent in the past; he now reports that he has been taking Stribild daily. We will continue Stribild. We will continue Bactrim for now for PCP prophylaxis and arrange for patient to continue HIV follow-up care with Dr. Alex thomas outpatient Case discussed with patient's nurse at time of encounter Message sent to Dr. Pacheco re antibiotic recommendations Code Status: Full Code KATHLEEN TIPTON MD 07/19/2017 alik, Angie thomas MD - 07/19/2017 8:09 AM PDT . Progress Notes by Angie Pacheco MD at 07/19/17 0809 Author: Angie Pacheco MD Service: Hospitalist Author Type: Physician Filed: 07/20/17 1003 Date of Service: 07/19/17 0809 Status: Addendum Security Shift Supervisor: Angie Pacheco MD (Physician) Related Notes: Original Note by Angie Pacheco MD (Physician) filed at 07/19/[address] [facility] Service: Hospitalist Progress Note Pt: Slava Anderson AGE/SEX: 51 y.o. male ROOM: 429/429-1 : 1965 PCP: Akin Matthews ADMIT DATE: 07/17/2017 TODAY'S DATE: 07/19/2017 Hospital Day/Hospital Course: LOS: 1 day From ID consult note on 07/18: The patient is a 51 y.o.malewith significant past medical history of HIV, follows with Dr. Johnson, from records had spotty medical adherence, on-and-off ART, supposed to be on Brenna trim but was not taking it, COPD, coronavirus URI in December. He reports that he is now t aking Stribild daily since December. He states that every 1-2 years, he gets cellulitis at various parts of his body. He denies prior history of MRSA. He denies trauma, cut or insect bites to the right leg. He started mercado ving malaise 3 days prior to admission but denies having fever, chills or diaphoresis. He wa s not in antibiotics prior to coming into the emergency room on 07/17. He was afebrile when he presented but was tachycardic. WBC was 13,180 with 68 percent neutrophils. Renal function w as normal. Albumin 3.1. MRSA nasal PCR was negative. 2 sets of blood cultures were obtained. Last CD4 count on 03/04 was 213, CD4 percent of 11.2. HIV viral load was 897. I advised for the patient to be admitted to the hospital for IV antibiotics. He was placed on IV Unasyn. Despite IV Unasyn, he reports continuing to have fiery redness at the right le g along with burning sensation. He has remained afebrile with heart rate improved. He has been continued on Stribild. He has been placed on Bactrim for prophylaxis. On 07/18, Unasyn changed to cefazolin/clindamycin SUBJECTIVE: Patient seen and examine. Still having redness on the right leg but no pain. No chest pain , SOB, MERCADO. No cough on recumbency. Had no orthopnea or PND. No Abdominal pain, N/V or fever. Still feeling tired and fatigued. No dizziness or lightheadedness. Scheduled Medications: ceFAZolin 2 g Intravenous Q8H clindamycin 600 mg Intravenous Q8H Edsgvjm-Jvbwx-Rlsfgxwk-TenofDF 1 tablet Oral Daily enoxaparin 40 mg Subcutaneous Q24H lactobacillus 1 packet Oral BID lidocaine buffered 1% 0.5 mL Intradermal Once nystatin 500,000 Units Oral TID sodium chloride 10 mL Intravenous Q8H sulfamethoxazole-trimethoprim 1 tablet Oral Daily Continuous Infusions PRN Medications acetaminophen OR acetaminophen, albuterol, ondansetron OR ondansetron, oxyCODONE-ac etaminophen OR oxyCODONE-acetaminophen, polyethylene glycol, zolpidem Allergy: No Known Allergies OBJECTIVE: Vitals: Patient Vitals for the past 24 hrs: BP Temp Temp src Pulse Resp SpO2 07/19/17 0341 108/69 97.6 F (36.4 C) Oral 98 18 97 % 07/18/17 2327 132/71 99.8 F (37.7 C) Oral 113 18 94 % 07/18/17 1905 116/75 100.2 F (37.9 C) Oral 109 18 98 % 07/18/17 1530 (!) 135/92 98.3 F (36.8 C) Oral 104 20 97 % 07/18/17 1110 128/86 97.5 F (36.4 C) Oral 98 20 100 % I&O Detailed Table: Intake/Output Summary (Last 24 hours) at 07/19/17 0809 Last data filed at 07/19/17 0343 Gross per 24 hour Intake 2175 ml Output 1375 ml Net 800 ml Patient Vitals for the past 96 hrs: Weight 07/18/17 0420 98 kg (216 lb) 07/18/17 0320 96.6 kg (212 lb 15.4 oz) 07/17/17 1542 96.6 kg (212 lb 15.4 oz) Hemodynamics Last 24hrs: Physical Examination: Constitutional: Alert and oriented to person, place, and time. Appears well-developed and w ell-nourished. HEENT: Neck supple, no JVD, non icteric sclera. Cardiovascular: Normal rate, regular rhythm, normal heart sounds with S1 and S2, and intact distal pulses. Exam reveals no gallop and no friction rub. No murmur heard. Pulmonary/Chest: Effort normal and breath sounds normal. No stridor. No respiratory distres s. no wheezes. no rales. exhibits no tenderness. Abdominal: Soft. Bowel sounds are normal. exhibits no distension and no mass. There is no t enderness. There is no rebound and no guarding. Extremeties/Musculoskeletal: Redness on the right leg Neurological: Alert and oriented to person, place, and time. Has normal reflexes. No cran ial nerve deficit. Exhibits normal muscle tone. Coordination normal. Skin: Redness on the right leg. Psychiatric: Has a normal mood and affect. Behavior is normal. Judgment normal. Not suicida l LABS: Recent Labs Lab 07/18/17 0551 07/17/171823 WBC 9.01 13.18* HGB 13.1* 14.9 HCT 39.0 44.3 PLT 212 229 NEUTOPHILPCT 73.29 67.60 MONOPCT 4.94 6.77 Recent Labs Lab 07/18/17 0551 07/17/171823 NA 134* 133* K 3.2* 3.6 CL 100 97* CO2 27 29 BUN 16 23 CREATININE 0.94 1.0 PROT -- 9.0* BILITOT -- 0.4 ALT -- 55 AST -- 48* Phosphorus: Lab Results Component Value Date PHOS 3.0 07/18/2017 Recent Labs Lab 07/18/17 0551 MG 2.1 Results Procedure Component Value Units Date/Time Blood Culture Set 1 [[id number]] Collected: 07/17/171823 Specimen: Blood from Blood, peripheral draw Updated: 07/19/17732 Specimen Description BLOOD, PERIPHERAL DRAW SPECIAL REQUESTS RAC CULTURE NO GROWTH 2 DAYS Blood Culture Set 2 [[id number]] Collected: 07/17/17 190 Specimen: Blood from Blood, peripheral draw Updated: 07/19/17732 Specimen Description BLOOD, PERIPHERAL DRAW SPECIAL REQUESTS LEFT HAND CULTURE NO GROWTH 2 DAYS MRSA by PCR [[id number]] Collected: 07/17/17 194 Specimen: Nasopharyngeal from Nares(Nose) Updated: 07/17/172224 SOURCE NARES(NOSE) MRSA PCR NEGATIVE PROBLEM LIST Principal Problem: Sepsis ([facility]) Active Problems: HIV (human immunodeficiency virus infection) ([facility]) Depression with anxiety Chronic back pain Hyperlipidemia Cellulitis and abscess of leg, except foot COPD (chronic obstructive pulmonary disease) ([facility]) ASSESSMENT & PLAN 51 y.o.malewith significant past medical history of HIV, follows with Dr. Johnson, from records had spotty medical adherence, on-and-off ART, supposed to be on Bactrim but was not taking it, COPD, coronavirus URI in December. Principal Problem: Sepsis ([facility]) due to right lower extremity cellulitis he was septic when he came to the hospital with fever, tachycardia and leukocytosis. Respo nded well to cefazolin and clindamycin day #2 Active Problems: HIV (human immunodeficiency virus infection) ([facility]) Last CD4 count was 213. Management per Dr. Tipton Depression with anxiety He is not depressed at this time. Chronic back pain Well controlled Hyperlipidemia Unspecified not on statin at this time COPD (chronic obstructive pulmonary disease) ([facility]) Appropriately controlled Hypokalemia Will replace potassium and will follow K level Patient diagnosed with: , and I agree with the following nutritional recommendations: ANGIE PACHECO MD, FACP 07/19/2017 8:09 AM Dictation software, Flit, used which may contain error for similar sounding words even af ter review. Personal communication requested for any clarification. Portions of this chart may have been copied from previous notes for continuity of care purp ose eth, Osmany connelly MD - 07/18/2017 4:18 PM PDTFormatting of this note might be different from the origin al. Progress Notes by Osmany Campos MD at 07/18/17 1618 Author: Osmany Campos MD Service: Hospitalist Author Type: Physician Filed: 07/18/172104 Date of Service: 07/18/17 1618 Status: Signed Security Shift Supervisor: Osmany Campos MD (Physician) Related Notes: Original Note by Osmany Campos MD (Physician) filed at 07/18/[address] [facility] Service: Hospitalist Progress Note Hospital Day: LOS: 0 days SUBJECTIVE Patient Summary: Events Overnight: Patient reports still having significant pain and swelling in R low er ext. No other complaints Scheduled Medications ampicillin-sulbactam 3 g Intravenous Q6H Dgxtook-Cemjj-Kzmbdvht-TenofDF 1 tablet Oral Daily enoxaparin 40 mg Subcutaneous Q24H lidocaine buffered 1% 0.5 mL Intradermal Once nystatin 500,000 Units Oral TID sodium chloride 10 mL Intravenous Q8H sulfamethoxazole-trimethoprim 1 tablet Oral Daily Continuous Infusions OBJECTIVE Vital Signs: BP (!) 135/92 (BP Location: Left upper arm) | Pulse 104 | Temp 98.3 F (36.8 C) (Oral) | Resp 20 | Ht 1.727 m (5' 8") | Wt 98 kg (216 lb) | SpO2 97% | BMI 32.84 kg/m Physical Exam General Appearance: awake, alert, oriented, in no acute distress Eyes: No gross abnormalities. Neck: neck- supple, no mass, non-tender Lungs: Normal expansion. Clear to auscultation. No rales, rhonchi, or wheezing. Extremities: RLE redness DATA Recent Labs Lab 07/18/17 0551 07/17/17 1824 WBC 9.01 13.18* HGB 13.1* 14.9 HCT 39.0 44.3 PLT 212 229 NEUTOPHILPCT 73.29 67.60 MONOPCT 4.94 6.77 Recent Labs Lab 07/18/17 0551 07/17/17 1824 NA 134* 133* K 3.2* 3.6 CL 100 97* CO2 27 29 BUN 16 23 CREATININE 0.94 1.0 PROT -- 9.0* BILITOT -- 0.4 ALT -- 55 AST -- 48* Phosphorus: Lab Results Component Value Date PHOS 3.0 07/18/2017 Invalid input(s): LABALBU Recent Labs Lab 07/18/17 0551 MG 2.1 No results for input(s): AMYLASE in the last 168 hours. No results for input(s): PHART, PO2ART, FMO6GTZ, D0JDQSNC, BEART in the last 168 hours. No results for input(s): APTT, INR, PTT in the last 168 hours. No results for input(s): TSH, T3FREE, FREET4 in the last 168 hours. No results for input(s): CKTOTAL, TROPONINI, TROPONINT, CKMBINDEX in the last 168 hours. Radiology No results found. PROBLEM LIST Principal Problem: Cellulitis and abscess of leg, except foot Active Problems: HIV (human immunodeficiency virus infection) ([facility]) Depression with anxiety Chronic back pain Hyperlipidemia COPD (chronic obstructive pulmonary disease) ([facility]) Resolved Problems: * No resolved hospital problems. * ASSESSMENT & PLAN 1. Cellulitis of the right leg in an immunocompromised individual. Continue Unasyn. ID cons ulted. Keep the legs elevated. Discontinue IV fluids as he is getting more swelling in that leg. 2. Check venous Doppler to rule out DVT. 3. HIV. Continue home regimen. 4. DVT prophylaxis. Heparin. 5. Hypokalemia. Replace potassium. Code Status: Full Code Osmany Campos MD 07/18/2017 4:18 PM onversion Tr ansaction, Provider Unknown - 07/18/2017 2:43 PM PDTFormatting of this note might be differ ent from the original. Case Management by LANDY Hernandez at 07/18/17 1443 Author: LANDY Hernandez Service: (none) Author Type: Chairman Of The Board Filed: 07/18/17 1513 Date of Service: 07/18/17 144 Status: Addendum Security Shift Supervisor: LANDY Hernandez (Chairman Of The Board) Related Notes: Original Note by LANDY Hernandez (Chairman Of The Board) filed at 07/18/17 1443 PFS has met with pt regarding no insurance. CM attempted to assess pt, but pt was unavailab le. CM will revisit. onver brett Transaction, Provider Unknown - 07/18/2017 3:34 AM PDT Progress Notes by Harpal Corado RPH at 07/18/17 033 Author: Harpal Corado RPH Service: Pharmacy Author Type: Pharmacist Filed: 07/18/17333 Date of Service: 07/18/17333 Status: Signed Security Shift Supervisor: Harpal Corado RPH (Pharmacist) Note ccl 99.6ml/min meds reviewed pharmacy will follow rdc 0334 docume nted in this encounter H&P Notes Jesse Gasca MD - 07/17/2017 9:51 PM PDTFormatting of this note might be different fr om the original. H&P by Jesse Gasca MD at 07/17/172150 Author: Jesse Gasca MD Service: Hospitalist Author Type: Physician Filed: 07/17/17 6627 Date of Service: 07/17/172150 Status: Signed Security Shift Supervisor: Jesse Gasca MD (Physician) [facility] Service: Hospitalist Admission History & Physical Date of Admission: 07/17/2017 Requesting Physician: Dr. Saucedo, Emergency Department Reason for Admission: Right lower extremity cellulitis History Obtained From: patient. Reliability fair. CHIEF COMPLAINT: 51-year-old male significant past medical history as listed below who pre sents with new skin lesions 6 days. HISTORY OF PRESENT ILLNESS The patient is 51 y.o. male with significant past medical history of HIV on therapy with la st CD4 count 213 (02/2017), COPD, history of hyperlipidemia and chronic pain presents to [facility] ER skin lesion 6 days. As per discussion with patient using otherwise his usual state of health until approximately 6 days ago, when the patient initially noted a erythematous rash that initially started in the left lower extremity and as per patient moved from the left l ower leg to the left thigh and then shifted to the right thigh and then now to its present l ocation of the right lower leg. The patient notes associated symptoms of tactile fever, chi lls and excessive fatigue. Notes the character of the pain to be sharp and of moderate inte nsity. Patient denies any prior episodes. The patient notes worsening of symptoms with act ivity and direct palpation. Denies any alleviating symptoms. Hospitalist was contacted for further care and management after ER physician had communicated with infectious disease phy sician for admission and IV antibiotics. REVIEW OF SYSTEMS Review of Systems Constitutional: Positive for activity change, chills and fever. Negative for appetite das e. HENT: Negative for sinus pain, sinus pressure and sneezing. Eyes: Negative for redness and visual disturbance. Respiratory: Negative for chest tightness and shortness of breath. Cardiovascular: Negative for chest pain and palpitations. Gastrointestinal: Negative for abdominal pain and nausea. Endocrine: Negative for heat intolerance. Genitourinary: Negative for difficulty urinating and dysuria. Musculoskeletal: Positive for joint swelling. Chronic Skin: Positive for rash and wound. Allergic/Immunologic: Positive for immunocompromised state. Neurological: Negative for seizures, syncope, speech difficulty and light-headedness. Psychiatric/Behavioral: Negative for behavioral problems. Past Medical History Diagnosis Date Blurred vision, bilateral Cholelithiasis Chronic mastoiditis COPD (chronic obstructive pulmonary disease) ([facility]) HIV (human immunodeficiency virus infection) ([facility]) Hyperlipidemia Multiple joint pain 05/14/2013 Muscle spasms of neck Neurosyphilis in male Other chronic pain Unspecified visual disturbance Past Surgical History Procedure Laterality Date ERCP N/A 05/24/2015 Procedure: ENDOSCOPIC RETROGRADE CHOLANGIOPANCREATOGRAPHY; Surgeon: Jin Arango MD; Loc ation: [facility] ENDOSCOPY; Service: Gastroenterology; Laterality: N/A; FINGER AMPUTATION Left middle finger amputated tip FISTULA REPAIR SPINE SURGERY TONSILLECTOMY TYMPANOPLASTY No Known Allergies (Not in a hospital admission) Family History Problem Relation Age of Onset Other (see comments) Mother adopted Other (see comments) Father adopted Social History Social History Marital status: Single Spouse name: N/A Number of children: 0 Years of education: N/A Occupational History Not on file. Social History Main Topics Smoking status: Current Every Day Smoker Packs/day: 1.00 Years: 30.00 Types: Cigarettes Smokeless tobacco: Never Used Alcohol use No Drug use: Types: Marijuana Comment: medical card Sexual activity: Not Currently Partners: Male control/ protection: Condom Other Topics Concern Not on file Social History Narrative Local resident , full code, no falls. PHYSICAL EXAM Vital Signs: BP 119/77 | Pulse 103 | Temp 98.2 F (36.8 C) (Oral) | Resp 18 | Wt 96.6 kg (212 lb 15.4 oz) | SpO2 98% | BMI 31.45 kg/m Physical Exam Constitutional: He is oriented to person, place, and time. He appears well-developed and we ll-nourished. No distress. HENT: Head: Normocephalic and atraumatic. Mouth/Throat: No oropharyngeal exudate. Poor oral dentition Eyes: EOM are normal. Pupils are equal, round, and reactive to light. No scleral icterus. Neck: Normal range of motion. Neck supple. No JVD present. Cardiovascular: Normal rate and normal heart sounds. Pulmonary/Chest: Effort normal. He has no wheezes. Abdomina/Gl: Soft. Bowel sounds are normal. Musculoskeletal: Normal range of motion. He exhibits tenderness. He exhibits no edema. Neurological: He is alert and oriented to person, place, and time. No cranial nerve deficit or sensory deficit. Skin: Skin is warm. Capillary refill takes 2 to 3 seconds. There is erythema. Right lower extremity erythematous, warm and pain on palpation. Psychiatric: His behavior is normal. DATA Labs, medications, allergies and other treating physician notes reviewed. PROBLEM LIST Principal Problem: Cellulitis and abscess of leg, except foot Active Problems: HIV (human immunodeficiency virus infection) ([facility]) Depression with anxiety Chronic back pain Hyperlipidemia COPD (chronic obstructive pulmonary disease) ([facility]) ASSESSMENT & PLAN 1. Right lower extremity erythema: Likely cellulitis versus related HIV complication. Inf ectious disease has been contacted by ER whose input is much appreciated. Recommends admitt ing patient and starting them on IV antibiotics (Unasyn). Will obtain blood cultures. We w ill obtain a pro-calcitonin. Start IV fluids at a rate of 150 cc per hour. 2. Hyponatremia: Likely hypoosmotic hypovolemic hyponatremia. As per point #1. 3. HIV: Last CD4 count as per records 213. Patient is presently on Stribild and Bactrim. We will continue with present therapy. Will follow-up ID recommendations. 4. Chronic obstructive pulmonary disease: Target inpatient oxygen saturation 90-94 percent . We will restart patient's home medication. 5. Hyperlipidemia: Patient is presently not on any statin therapy as per records. No repor leobardo allergies. We will obtain a panel for tomorrow morning to ascertain ASCVD risk score an d whether statin therapy is recommended. Deep vein thrombosis prophylaxis: Lovenox 40 mg q daily. Disposition: Inpatient Code Status: Prior Primary Care Physician: Akin Gasca MD 07/17/2017 documented in this encounter Consult Notes Kathleen Tipton MD - 07/18/2017 4:42 PM PDTFormatting of this note might be differen t from the original. Consult* by Kathleen Tipton MD at 07/18/17 1642 Author: Kathleen Tipton MD Service: Infectious Disease Author Type: Physician Filed: 07/18/17 2518 Date of Service: 07/18/17 1642 Status: Signed Security Shift Supervisor: Kathleen Tipton MD (Physician) [facility] Service: Infectious Disease Initial Consult Note Date of Admission: 07/17/2017 Reason for Consultation: Right leg cellulitis Requesting Physician: Dr. Rickey Saucedo, Emergency Department History Obtained From: patient, chart review CHIEF COMPLAINT: Right leg cellulitis HISTORY OF PRESENT ILLNESS The patient is a 51 y.o. male with significant past medical history of HIV, follows with Dr Anay Johnson, from records had spotty medical adherence, on-and-off ART, supposed to be on Bactr im but was not taking it, COPD, coronavirus URI in December. He reports that he is now taki ng Stribild daily since December. He states that every 1-2 years, he gets cellulitis at various parts of his body. He denies prior history of MRSA. He denies trauma, cut or insect bites to the right leg. He started mercado ving malaise 3 days prior to admission but denies having fever, chills or diaphoresis. He wa s not in antibiotics prior to coming into the emergency room on 07/17. He was afebrile when he presented but was tachycardic. WBC was 13,180 with 68 percent neutrophils. Renal function w as normal. Albumin 3.1. MRSA nasal PCR was negative. 2 sets of blood cultures were obtained. Last CD4 count on 03/04 was 213, CD4 percent of 11.2. HIV viral load was 897. I advised for the patient to be admitted to the hospital for IV antibiotics. He was placed on IV Unasyn. Despite IV Unasyn, he reports continuing to have fiery redness at the right le g along with burning sensation. He has remained afebrile with heart rate improved. He has been continued on Stribild. He has been placed on Bactrim for prophylaxis. REVIEW OF SYSTEMS Review of Systems Constitutional: Positive for fatigue. Negative for appetite change, chills, diaphoresis and fever. HENT: Negative for ear pain, rhinorrhea, sore throat and trouble swallowing. No oral thrush Eyes: No acute visual problems Respiratory: Negative for cough, shortness of breath and wheezing. Cardiovascular: Negative for chest pain and palpitations. Gastrointestinal: Negative for abdominal pain, constipation, diarrhea, nausea and vomiting. Endocrine: Negative for cold intolerance, heat intolerance, polydipsia, polyphagia and poly uria. Genitourinary: Negative for dysuria, frequency, hematuria and urgency. Musculoskeletal: Negative for joint swelling and myalgias. Skin: Positive for color change. Negative for rash and wound. Allergic/Immunologic: Positive for immunocompromised state. Negative for environmental brayan rgies and food allergies. Neurological: Negative for dizziness, tremors, syncope, weakness and headaches. Hematological: Negative for adenopathy. Does not bruise/bleed easily. Psychiatric/Behavioral: Negative for confusion. Past Medical History Diagnosis Date Blurred vision, bilateral Cholelithiasis Chronic mastoiditis COPD (chronic obstructive pulmonary disease) ([facility]) HIV (human immunodeficiency virus infection) ([facility]) Hyperlipidemia Multiple joint pain 05/14/2013 Muscle spasms of neck Neurosyphilis in male Other chronic pain Unspecified visual disturbance Past Surgical History Procedure Laterality Date ERCP N/A 05/24/2015 Procedure: ENDOSCOPIC RETROGRADE CHOLANGIOPANCREATOGRAPHY; Surgeon: Jin Arango MD; Loc ation: [facility] ENDOSCOPY; Service: Gastroenterology; Laterality: N/A; FINGER AMPUTATION Left middle finger amputated tip FISTULA REPAIR SPINE SURGERY TONSILLECTOMY TYMPANOPLASTY No Known Allergies Prescriptions Prior to Admission Medication Sig Dispense Refill Last Dose Ppkvpgx-Pdbpfas-Ctjlkmzg-Tenof (STRIBILD) 150-730-140-300 MG TABS Take by mouth. 07/17 at 0800 albuterol (PROVENTIL HFA;VENTOLIN HFA) 108 (90 Base) MCG/ACT inhaler Inhale 2 puffs int o the lungs every 4 (four) hours as needed for Wheezing. 1 Inhaler 1 More than a month at Un known time Fluticasone Furoate-Vilanterol 200-25 MCG/INH AEPB Inhale 1 puff into the lungs daily. 1 each 12 More than a month at Unknown time HYDROcodone-acetaminophen (NORCO) 5-325 MG per tablet Take 1-2 tablets by mouth every 6 (six) hours as needed for Pain. 10 tablet 0 nystatin (MYCOSTATIN) [id number] UNIT/ML suspension Take 500,000 Units by mouth 3 (three) t imes daily. Indications: Candidiasis Fungal Infection of the Oropharynx More than a month at Scheduled Medications ampicillin-sulbactam 3 g Intravenous Q6H Zdstpqs-Dhmwt-Amptjzvp-TenofDF 1 tablet Oral Daily enoxaparin 40 mg Subcutaneous Q24H lidocaine buffered 1% 0.5 mL Intradermal Once nystatin 500,000 Units Oral TID potassium chloride 40 mEq Oral Once sodium chloride 10 mL Intravenous Q8H sulfamethoxazole-trimethoprim 1 tablet Oral Daily Continuous Infusions PRN Medications acetaminophen OR acetaminophen, albuterol, ondansetron OR ondansetron, oxyCODONE-ac etaminophen OR oxyCODONE-acetaminophen, polyethylene glycol, zolpidem Family History Problem Relation Age of Onset Other (see comments) Mother adopted Other (see comments) Father adopted Social History Social History Marital status: Single Spouse name: N/A Number of children: 0 Years of education: N/A Occupational History Not on file. Social History Main Topics Smoking status: Current Every Day Smoker Packs/day: 1.00 Years: 30.00 Types: Cigarettes Smokeless tobacco: Never Used Alcohol use No Drug use: Types: Marijuana Comment: medical card Sexual activity: Not Currently Partners: Male control/ protection: Condom Other Topics Concern Not on file Social History Narrative Local resident , full code, no falls. PHYSICAL EXAM Vital Signs: BP (!) 135/92 (BP Location: Left upper arm) | Pulse 104 | Temp 98.3 F (36.8 C) (Oral) | Resp 20 | Ht 1.727 m (5' 8") | Wt 98 kg (216 lb) | SpO2 97% | BMI 32.84 kg/m Temp: [97.5 F (36.4 C)-99.2 F (37.3 C)] 98.3 F (36.8 C) (07/18 1530) BP: (118-135)/(68-98) 135/92 (07/18 1530) Heart Rate: [93-117] 104 (07/18 1530) Resp: [16-20] 20 (07/18 1530) SpO2: [97 %-100 %] 97 % (07/18 1530) Height: [172.7 cm (5' 8")] 172.7 cm (5' 8") (07/18 420) Weight: [96.6 kg (212 lb 15.4 oz)-98 kg (216 lb)] 98 kg (216 lb) (07/18 420) BMI (Calculated): [32.4-32.9] 32.9 (07/18 420) Physical Exam Vital signs have been reviewed Gen.: Pleasant male, not in acute distress HEENT: Normocephalic. Anicteric sclerae. No conjunctival lesions. No nasal mucosal secretio ns. No oral thrush or ulcers. Neck is supple with no cervical lymphadenopathy Lungs: No adventitious breath sounds Cardiovascular: Slightly tachycardic, regular. No murmur or rubs Abdomen: No distention. Soft. No tenderness or palpable masses Skin: No diffuse rash Musculoskeletal: No inflamed looking joints Right leg: Moderately diffusely swollen. Circumferential erythema noted: Bright red/erysipe la appearance. Warm and tender to palpation. No vesicles, bullous secretions, drainage, ope n ulcers Neurologic: Oriented 3, no focal weakness or numbness Psychiatric: Cooperative for the clinical evaluation DATA CBC: Lab Results Component Value Date WBC 9.01 07/18/2017 RBC 4.59 07/18/2017 HGB 13.1 (L) 07/18/2017 HCT 39.0 07/18/2017 MCV 85.0 07/18/2017 MCH 28.5 07/18/2017 MCHC 33.6 07/18/2017 RDW 42.9 07/18/2017 PLT 212 07/18/2017 MPV 9.2 07/18/2017 DIFFTYPE AUTOMATED 07/18/2017 WBC: Lab Results Component Value Date WBC 9.01 07/18/2017 NEUTABSMAN 2.13 03/04/2017 NEUTROABS 6.61 07/18/2017 NEUTROMAN 43 03/04/2017 LYMPHOABS 2.13 03/04/2017 LYMPHOMAN 43 03/04/2017 LYMPHSABS 1.73 07/18/2017 LYMPHOPCT 19.17 07/18/2017 MONOABSMAN 0.50 03/04/2017 MONOMAN 10 03/04/2017 MONOPCT 4.94 07/18/2017 EOSINOABS 0.20 03/04/2017 EOSINOMAN 4 03/04/2017 EOSABS 0.20 07/18/2017 EOSPCT 2.16 07/18/2017 BASOABSMAN 0.04 05/23/2015 BASOSABS 0.04 07/18/2017 BASOSMAN 1 05/23/2015 BASOPCT 0.44 07/18/2017 PLTEST ADEQUATE 05/23/2015 BANDSPCT 1 05/23/2015 METAABS 0.05 (H) 03/03/2017 METAPCT 1 03/03/2017 ATYLMPCT 8 04/19/2015 ATYLYMABS 0.48 (H) 04/19/2015 COMDIFF SLIDE SCANNED, AGREES WITH AUTOMATED RESULTS. 10/22/2014 CMP: Lab Results Component Value Date NA 134 (L) 07/18/2017 K 3.2 (L) 07/18/2017 CL 100 07/18/2017 CO2 27 07/18/2017 ANIONGAP 11 07/18/2017 GLUF 132 (H) 07/18/2017 BUN 16 07/18/2017 CREATININE 0.94 07/18/2017 BCR 18 07/18/2017 CA 7.9 (L) 07/18/2017 PROT 9.0 (H) 07/17/2017 ALB 3.1 (L) 07/17/2017 GLOB 5.9 (H) 07/17/2017 BILITOT 0.4 07/17/2017 ALP 132 (H) 07/17/2017 AST 48 (H) 07/17/2017 ALT 55 07/17/2017 EGFR >60 07/18/2017 Lab Results Component Value Date ESR 37 (H) 10/31/2014 Lab Results Component Value Date CRP 2.8 (H) 2015 Microbiology data: 07/17 MRSA nasal PCR negative 07/17 blood cultures in process Radiology data: Right leg ultrasound Impression 1. No evidence of lower extremity deep vein thrombosis. LEM LIST Principal Problem: Cellulitis and abscess of leg, except foot Active Problems: HIV (human immunodeficiency virus infection) ([facility]) Depression with anxiety Chronic back pain Hyperlipidemia COPD (chronic obstructive pulmonary disease) ([facility]) ASSESSMENT & PLAN Right leg cellulitis -Appearance is consistent with streptococcal erysipela; MRSA nasal PCR negative -Patient was tachycardic but heart rate is better today. He is afebrile with stable blood pressure and normal WBC -There has not been much improvement of the right leg with IV Unasyn. We will change antib iotics to IV cefazolin and clindamycin (latter is for toxin production). If patient shows cl inical improvement within the next 48 hours, we will plan to transition to po cephalexin and clindamycin -Leg elevation -Right lower extremity ultrasound negative for deep vein thrombosis HIV -Last CD4 count in February was 213 with low viremia -Records indicate patient had not been fully adherent in the past; he now reports that he has been taking Stribild daily. We will continue Stribild. We will continue Bactrim for now for PCP prophylaxis and arrange for patient to continue HIV follow-up care with Dr. Alex thomas outpatient Case discussed with Dr. Saucedo last night and with Dr. Sajnani today Code Status: Full Code Primary Care Physician: Akin Matthews Thank you for allowing me to participate in the care of this patient. KATHLEEN TIPTON MD 07/18/2017 documented in t his encounter ED Notes Conversion Transaction, Provider Unknown - 07/18/2017 3:30 AM PDTFormatting of this note m ight be different from the original. ED Notes by Ana Bunch RN at 07/18/17329 Author: Ana Bunch RN Service: (none) Author Type: Registered Nurse Filed: 07/18/17417 Date of Service: 07/18/17329 Status: Signed Security Shift Supervisor: Ana Bunch RN (Registered Nurse) Report given to KAREEM Mosher. Ana Bunch RN 07/18/17417 onver brett Transaction, Provider Unknown - 07/18/2017 3:27 AM PDT ED Notes by Vidhi Tian RN at 07/18/17326 Author: Vidhi Tian RN Service: (none) Author Type: Registered Nurse Filed: 07/18/17327 Date of Service: 07/18/17326 Status: Signed Security Shift Supervisor: Vidhi Tian RN (Registered Nurse) Report from KAREEM Perez RN 07/18/17327 onver brett Transaction, Provider Unknown - 07/18/2017 2:45 AM PDT ED Notes by Ana Bunch RN at 07/18/17244 Author: Ana Bunch RN Service: (none) Author Type: Registered Nurse Filed: 07/18/17244 Date of Service: 07/18/17244 Status: Signed Security Shift Supervisor: Ana Bunch RN (Registered Nurse) Pt provided with juice. Ana Bunch RN 07/18/17244 onver brett Transaction, Provider Unknown - 07/18/2017 2:28 AM PDT ED Notes by Ana Bunch RN at 07/18/17227 Author: Ana Bunch RN Service: (none) Author Type: Registered Nurse Filed: 07/18/17244 Date of Service: 07/18/17227 Status: Signed Security Shift Supervisor: Ana Bunch RN (Registered Nurse) Pt placed on hospital bed. Ana Bunch RN 07/18/17244 onver brett Transaction, Provider Unknown - 07/18/2017 2:17 AM PDT ED Notes by Ana Bunch RN at 07/18/17216 Author: Ana Bunch RN Service: (none) Author Type: Registered Nurse Filed: 07/18/17222 Date of Service: 07/18/17216 Status: Signed Security Shift Supervisor: Ana Bunch RN (Registered Nurse) Assumed care of pt, received report from KAREEM Carrero. Ana Bunch RN 07/18/17222 onver brett Transaction, Provider Unknown - 07/18/2017 12:15 AM PDT ED Notes by Paula Don RN at 07/18/1714 Author: Paula Don RN Service: (none) Author Type: Registered Nurse Filed: 07/18/1714 Date of Service: 07/18/1714 Status: Signed Security Shift Supervisor: Paula Don RN (Registered Nurse) Pt sleeping, resp calm and equal. onver brett Transaction, Provider Unknown - 07/17/2017 8:20 PM PDT ED Notes by Paula Don RN at 07/17/172019 Author: Paula Don RN Service: (none) Author Type: Registered Nurse Filed: 07/17/172019 Date of Service: 07/17/172019 Status: Signed Security Shift Supervisor: Paula Don RN (Registered Nurse) Pt presses call [facility] requesting medication for his headache. notified. onver brett Transaction, Provider Unknown - 07/17/2017 7:00 PM PDT ED Notes by Paula Don RN at 07/17/171899 Author: Paula Don RN Service: (none) Author Type: Registered Nurse Filed: 07/17/171899 Date of Service: 07/17/171899 Status: Signed Security Shift Supervisor: Paula Don RN (Registered Nurse) Lab called to draw second set of blood cultures. onver brett Transaction, Provider Unknown - 07/17/2017 6:40 PM PDT ED Notes by Paula Don RN at 07/17/171839 Author: Paula Don RN Service: (none) Author Type: Registered Nurse Filed: 07/17/171839 Date of Service: 07/17/171839 Status: Signed Security Shift Supervisor: Paula Don RN (Registered Nurse) Pt reports right lower leg redness x2 days. Pt reports fever x5 days, tmax 103. onver brett Transaction, Provider Unknown - 07/17/2017 6:32 PM PDT ED Notes by Paula Don RN at 07/17/171831 Author: Paula Don RN Service: (none) Author Type: Registered Nurse Filed: 07/17/171831 Date of Service: 07/17/171831 Status: Signed Security Shift Supervisor: Paula Don RN (Registered Nurse) Care assumed from Delfina SERNA at this time. ickey Mcmahon DO - 07/17/2017 5:59 PM PDTFormatting of this note might be different f rom the original. ED Provider Notes by Rickey Saucedo DO at 07/17/171758 Author: Rickey Saucedo DO Service: (none) Author Type: Physician Filed: 07/18/17 0247 Date of Service: 07/17/171758 Status: Signed Security Shift Supervisor: Rickey Saucedo DO (Physician) [facility] Department of Emergency Medicine 5:59 PM History of Present Illness Patient Identification Slava Anderson is a 51 y.o. male. Patient information was obtained from patient. History/Exam limitations: none. Patient presented to the Emergency Department by: Car Chief Complaint Chief Complaint Patient presents with Skin Complaint RLE " I am HIV positive and I have been getting lesions on my legs for months" The patient presents to ED with complaints of skin complaint secondary to HIV. The patient' s symptoms have been intermittent for 6 months, but have worsened in the past week. The symp toms are described to be of mild to moderate severity. The patient describes the quality and location of the symptoms as the following: lower R leg cellulitis that is painful. He repor ts that the cellulitis moved from his left upper leg, to his R upper leg, to his R lower leg where it currently is. Patient also complains of fever that onset 3 days ago. Patient kana es any other symptoms at this time. Care prior to arrival consisted of 500 mg Stribild daily , with minimal relief of symptoms. PMHx: HIV PCP: Akin Matthews Past Medical History Diagnosis Date Blurred vision, bilateral Cholelithiasis Chronic mastoiditis COPD (chronic obstructive pulmonary disease) ([facility]) HIV (human immunodeficiency virus infection) ([facility]) Hyperlipidemia Multiple joint pain 05/14/2013 Muscle spasms of neck Neurosyphilis in male Other chronic pain Unspecified visual disturbance Past Surgical History Procedure Laterality Date ERCP N/A 05/24/2015 Procedure: ENDOSCOPIC RETROGRADE CHOLANGIOPANCREATOGRAPHY; Surgeon: Jin Arango MD; Loc ation: [facility]; Service: Gastroenterology; Laterality: N/A; FINGER AMPUTATION Left middle finger amputated tip FISTULA REPAIR SPINE SURGERY TONSILLECTOMY TYMPANOPLASTY Prior to Admission medications Medication Sig Start Date End Date Taking? Authorizing Provider albuterol (PROVENTIL HFA;VENTOLIN HFA) 108 (90 Base) MCG/ACT inhaler Inhale 2 puffs into th e lungs every 4 (four) hours as needed for Wheezing. 03/04/17 Allison Grubbs MD Bpyhltm-Muiezbd-Vvslplwf-Tenof (STRIBILD) [phone] MG TABS Take by mouth. Histor ical Provider Fluticasone Furoate-Vilanterol 200-25 MCG/INH AEPB Inhale 1 puff into the lungs daily. 03/05 Allison Grubbs MD HYDROcodone-acetaminophen (NORCO) 5-325 MG per tablet Take 1-2 tablets by mouth every 6 (si x) hours as needed for Pain. 07/25/15 08/04/15 WANDA Marshall nystatin (MYCOSTATIN) [id number] UNIT/ML suspension Take 500,000 Units by mouth 3 (three) times daily. Indications: Candidiasis Fungal Infection of the Oropharynx Historical Provider sulfamethoxazole-trimethoprim (BACTRIM DS) 800-160 MG per tablet Take 1 tablet by mouth judy ly. Historical Provider No Known Allergies Social History Social History Marital status: Single Spouse name: N/A Number of children: 0 Years of education: N/A Occupational History Not on file. Social History Main Topics Smoking status: Current Every Day Smoker Packs/day: 1.00 Years: 30.00 Types: Cigarettes Smokeless tobacco: Never Used Alcohol use No Drug use: Types: Marijuana Comment: medical card Sexual activity: Not Currently Partners: Male control/ protection: Condom Other Topics Concern Not on file Social History Narrative Local resident , full code, no falls. Family History Problem Relation Age of Onset Other (see comments) Mother adopted Other (see comments) Father adopted Review of Systems Constitutional: Negative for fever, chills Eyes: Negative for vision changes Nose: Negative for congestion Throat: Negative for sore throat CV/Resp: Negative for chest pain, mllhrlgln-wn-geecyx, cough GI: Negative for abdominal pain, nausea, vomiting, or diarrhea : Negative for urinary problems Musculoskeletal: Negative for back pain, joint pain Skin: Positive for: skin complaint Neuro/Psych: Negative for headache Endo/heme/Lymph: Negative for easy bruising All other systems reviewed and negative except as noted. Physical Exam BP 142/87 (BP Location: Left upper arm) | Pulse 125 | Temp 99.1 F (37.3 C) (Temporal) | Resp 18 | Wt 96.6 kg (212 lb 15.4 oz) | SpO2 98% | BMI 31.45 kg/m Vital signs interpretation: hypertensive, tachycardic, otherwise WNL Pulse Oximetry interpretation: Normal General: Alert, in no apparent distress Eyes: Normal inspection ENT: MMM Neck: Normal inspection Cardiovascular: Rate and rhythm normal No murmurs Respiratory: Breath sounds normal bilaterally No rales, wheezing or rhonchi Abdomen: Soft, non-tender, non-distended No guarding or rebound Back: Normal inspection Extremities: No edema Distal pulses intact Skin: Moderate erythema and warmth that is tender to palpation on the R medial calf/thompson Neuro: Alert, no AMS No gross motor/sensory deficits Medical Decision Making and Emergency Department Course ED Department Course Patient presents to ED with skin complaint. My DDx includes, but is not limited to: celluli tis, HIV exacerbation/complication, abscess, dermatitis, vs other. Will order labs, and reev aluate the patient. Patient is stable appearing at this time. The patient's wound/lesion appears to be consistent with cellulitis. I will treat with IV a ntibiotics. We will start Unasyn. 6:54 PM CBC resulted with leukocytosis (13.18), and is otherwise unremarkable. CMP resulted with mild ALK Phos elevation, and is otherwise unremarkable. 8:32 PM Phone call with Dr. Tipton, Infectious Disease. We discussed the patient's case and she w ould like the patient to be admitted to the hospital in order to give him IV antibiotics. S he is concerned as the patient's last CD4 count was 213. 8:34 PM Patient rechecked and is stable at this time. 8:55 PM Phone call with Dr. Gasca, Hospitalist. We discussed the patient's case and they accept the patient for admission at this time. The patient was hypertensive on presentation. Differential for hypertension in the emergen cy department is extensive and not limited to pain, anxiety, established and uncontrolled hy pertension, poor medication compliance vs other. Patient will follow up with primary care [facility] for ongoing concerns. Medications sodium chloride 0.9 % flush 10 mL (not administered) sodium chloride 0.9 % infusion ( Intravenous New Bag 07/18/17 010) ampicillin-sulbactam (UNASYN) 3 g in sodium chloride (IV) 0.9 % 100 mL IVPB (0 g Intravenou s Stopped 07/17/172026) sodium chloride (bolus) 0.9 % 1,000 mL (0 mLs Intravenous Stopped 07/17/172102) acetaminophen (TYLENOL) tablet 1,000 mg (1,000 mg Oral Given 07/17/171941) ketorolac (TORADOL) injection 30 mg (30 mg Intravenous Given 07/17/172039) Vitals: 07/17/17 2103 07/17/17 2251 07/18/17 0111 07/18/17 0240 BP: 119/77 121/68 119/69 BP Location: Left upper arm Left upper arm Pulse: 103 99 97 99 Resp: Temp: 98.2 F (36.8 C) TempSrc: Oral SpO2: 98% 98% 97% Weight: Records Reviewed Old medical records. Nursing notes. Previous ED visits for similar and unrelated complaints. Laboratory Evaluation Results Procedure Component Value Ref Range Date/Time MRSA by PCR [[id number]] Collected: 07/17/171943 Order Status: Completed Specimen: Nasopharyngeal from Nares(Nose) Updated: 07/17/17 2 225 SOURCE NARES(NOSE) MRSA PCR NEGATIVE NEGATIVE Blood Culture Set 2 [[id number]] Collected: 07/17/171907 Order Status: Sent Specimen: Blood from Blood, peripheral draw Updated: 07/17/172212 Blood Culture Set 1 [[id number]] Collected: 07/17/171823 Order Status: Sent Specimen: Blood from Blood, peripheral draw Updated: 07/17/172212 Comprehensive metabolic panel [[id number]] (Abnormal) Collected: 07/17/171823 Order Status: Completed Specimen: Blood Updated: 07/17/171854 SODIUM 133 (L) 135 - 145 mmol/L POTASSIUM 3.6 3.5 - 4.9 mmol/L CHLORIDE 97 (L) 99 - 109 mmol/L CO2 29 23 - 32 mmol/L ANION GAP AGAP 11 5 - 20 mmol/L GLUCOSE 129 (H) 65 - 99 mg/dL BUN 23 8 - 25 mg/dL CREATININE 1.0 0.70 - 1.30 mg/dL BUN/CREAT 23 CALCIUM 8.7 8.5 - 10.5 mg/dL TOTAL PROTEIN 9.0 (H) 6.3 - 8.2 g/dL Albumin 3.1 (L) 3.6 - 5.0 g/dL GLOBULIN 5.9 (H) 1.3 - 4.9 g/dL A/G 0.5 (L) 1.0 - 2.4 TBIL 0.4 0.1 - 1.5 mg/dL ALK PHOS 132 (H) 35 - 115 U/L AST 48 (H) 10 - 45 U/L ALT 55 10 - 65 U/L EGFR >60 >60 mL/min/1.73m2 CBC with differential [[id number]] (Abnormal) Collected: 07/17/171823 Order Status: Completed Specimen: Blood Updated: 07/17/171853 WBC 13.18 (H) 3.80 - 11.00 K/uL RBC 5.25 4.20 - 5.70 M/uL HGB 14.9 13.2 - 17.0 g/dL HCT 44.3 39.0 - 50.0 % MCV 84.5 80.0 - 100.0 fl MCH 28.4 27.0 - 34.0 pg MCHC 33.6 32.0 - 35.5 g/dL RDW SD 44.6 37 - 53 fl PLT 229 150 - 400 K/uL MPV 8.9 fl DIFF TYPE AUTOMATED NEUTROPHILS 67.60 % LYMPHOCYTES 23.78 % MONOCYTES 6.77 % EOSINOPHILS 1.22 % BASOPHILS 0.63 % NEUTROPHILS ABS 8.91 (H) 1.90 - 7.40 K/uL LYMPHOCYTES ABS 3.13 1.00 - 3.90 K/uL MONOCYTES ABS 0.89 (H) 0.00 - 0.80 K/uL EOSINOPHILS ABS 0.16 0.00 - 0.50 K/uL BASOPHILS ABS 0.08 0.00 - 0.10 K/uL I personally reviewed the lab results and they have been posted to the chart. Pertinent po sitive and negative findings have been addressed appropriately. Radiology and EKG Evaluation Imaging Results None ED Diagnoses Final diagnoses Elevated blood pressure Cellulitis of right lower extremity HIV positive (HCC) Disposition: ED Disposition ED Disposition Condition Comment Admit/Observation Bed request special needs: None Diagnosis?: cellulitis RLE, HIV positive Follow-up Information None Discharge Medications: New Prescriptions No new medications Dictation software, Flit, used which may contain error for similar sounding words even af ter review. Personal communication requested for any clarification. Procedures Additional Documentation Procedures Attending Provider Note: I, Rickey Saucedo DO personally performed the services descri bed in this documentation, as scribed by Oscar Payan in my presence, and it is both accura te and complete. Chart Reviewed and Completed: 07/18/2017 2:45 AM Scribe: Alfa Marroquin, scribing for and in the presence of Rickey Saucedo DO. Signed by: Alfa Young 07/17/2017 8:38 PM Rickey Saucedo DO 07/18/17246 onversion Transaction, Provider Unknown - 07/17/2017 5:53 PM PDTFormatting of this note might be diff erent from the original. ED Notes by Paula Don RN at 07/17/171752 Author: Paula Don RN Service: (none) Author Type: Registered Nurse Filed: 07/17/171752 Date of Service: 07/17/171752 Status: Signed Security Shift Supervisor: Paula Don RN (Registered Nurse) Pt not in room. onver brett Transaction, Provider Unknown - 07/17/2017 5:49 PM PDT ED Notes by Kathy Tate RN at 07/17/171748 Author: Kathy Tate RN Service: (none) Author Type: Registered Nurse Filed: 07/17/171748 Date of Service: 07/17/171748 Status: Signed Security Shift Supervisor: Kathy Tate RN (Registered Nurse) Pt called for room. No answer at this time. Kathy Tate RN 07/17/171748 docume nted in this encounter Miscellaneous Notes Plan of Care - Conversion Transaction, Provider Unknown - 07/18/2017 9:57 PM PDT Plan of Care by Donna Bell RN at 07/18/172156 Author: Donna Bell RN Service: (none) Author Type: Registered Nurse Filed: 07/18/172156 Date of Service: 07/18/172156 Status: Signed Security Shift Supervisor: Donna Bell RN (Registered Nurse) Daily Care Daily care needs are met Progressing Discharge Barriers Patient's discharge needs are met Progressing Pain Patient's pain/discomfort is manageable Progressing Psychosocial Needs Demonstrates ability to cope with hospitalization/illness Progressing Collaborate with patient/family/caregiver to identify patient specific goals for this h ospitalization Progressing Safety Patient will be injury free during hospitalization Progressing lan o f Care - Conversion Transaction, Provider Unknown - 07/18/2017 5:31 AM PDTFormatting of thi s note might be different from the original. Plan of Care by Donna Bell RN at 07/18/17530 Author: Donna Bell RN Service: (none) Author Type: Registered Nurse Filed: 07/18/17530 Date of Service: 07/18/17530 Status: Signed Security Shift Supervisor: Donna Bell RN (Registered Nurse) Daily Care Daily care needs are met Progressing Discharge Barriers Patient's discharge needs are met Progressing Pain Patient's pain/discomfort is manageable Progressing Psychosocial Needs Demonstrates ability to cope with hospitalization/illness Progressing Collaborate with patient/family/caregiver to identify patient specific goals for this h ospitalization Progressing Safety Patient will be injury free during hospitalization Progressing docume nted in this encounter Plan of Treatment Not on filedocumented as of this encounter Procedures + +--------+ + + + | Procedure Name | Priori | Date/Time | Associated Diagnosis | Comments | | | ty | | | | + +--------+ + + + | EXTERNAL LAB: CBC | Routin | 07/22/2017 | | Results for this | | | e | 4:37 AM | | procedure are in the | | | | PDT | | results section. | + +--------+ + + + | MAGNESIUM | Routin | 07/22/2017 | | Results for this | | | e | 4:37 AM | | procedure are in the | | | | PDT | | results section. | + +--------+ + + + | COMPREHENSIVE | Routin | 07/22/2017 | | Results for this | | METABOLIC PANEL | e | 4:37 AM | | procedure are in the | | | | PDT | | results section. | + +--------+ + + + | EXTERNAL LAB: CBC | Routin | 07/21/2017 | | Results for this | | | e | 4:44 AM | | procedure are in the | | | | PDT | | results section. | + +--------+ + + + | SEDIMENTATION RATE, | Routin | 07/21/2017 | | Results for this | | AUTOMATED | e | 4:44 AM | | procedure are in the | | | | PDT | | results section. | + +--------+ + + + | C-REACTIVE PROTEIN | Routin | 07/21/2017 | | Results for this | | | e | 4:44 AM | | procedure are in the | | | | PDT | | results section. | + +--------+ + + + | MAGNESIUM | Routin | 07/21/2017 | | Results for this | | | e | 4:44 AM | | procedure are in the | | | | PDT | | results section. | + +--------+ + + + | COMPREHENSIVE | Routin | 07/21/2017 | | Results for this | | METABOLIC PANEL | e | 4:44 AM | | procedure are in the | | | | PDT | | results section. | + +--------+ + + + | EXTERNAL LAB: CBC | Routin | 07/20/2017 | | Results for this | | | e | 5:01 AM | | procedure are in the | | | | PDT | | results section. | + +--------+ + + + | MAGNESIUM | Routin | 07/20/2017 | | Results for this | | | e | 5:01 AM | | procedure are in the | | | | PDT | | results section. | + +--------+ + + + | CK TOTAL | Routin | 07/20/2017 | | Results for this | | | e | 5:01 AM | | procedure are in the | | | | PDT | | results section. | + +--------+ + + + | COMPREHENSIVE | Routin | 07/20/2017 | | Results for this | | METABOLIC PANEL | e | 5:01 AM | | procedure are in the | | | | PDT | | results section. | + +--------+ + + + | EXTERNAL LAB: CBC | Routin | 07/19/2017 | | Results for this | | | e | 8:44 AM | | procedure are in the | | | | PDT | | results section. | + +--------+ + + + | MAGNESIUM | Routin | 07/19/2017 | | Results for this | | | e | 8:44 AM | | procedure are in the | | | | PDT | | results section. | + +--------+ + + + | COMPREHENSIVE | Routin | 07/19/2017 | | Results for this | | METABOLIC PANEL | e | 8:44 AM | | procedure are in the | | | | PDT | | results section. | + +--------+ + + + | VAS LOWER EXTREMITY | Routin | 07/18/2017 | | Results for this | | VENOUS RIGHT | e | 6:15 PM | | procedure are in the | | | | PDT | | results section. | + +--------+ + + + | EXTERNAL LAB: CBC | Routin | 07/18/2017 | | Results for this | | | e | 5:51 AM | | procedure are in the | | | | PDT | | results section. | + +--------+ + + + | PROCALCITONIN, SERUM | Routin | 07/18/2017 | | Results for this | | | e | 5:51 AM | | procedure are in the | | | | PDT | | results section. | + +--------+ + + + | PHOSPHORUS | Routin | 07/18/2017 | | Results for this | | | e | 5:51 AM | | procedure are in the | | | | PDT | | results section. | + +--------+ + + + | MAGNESIUM | Routin | 07/18/2017 | | Results for this | | | e | 5:51 AM | | procedure are in the | | | | PDT | | results section. | + +--------+ + + + | BASIC METABOLIC | Routin | 07/18/2017 | | Results for this | | PANEL | e | 5:51 AM | | procedure are in the | | | | PDT | | results section. | + +--------+ + + + | MRSA NAAT | Timed | 07/17/2017 | | Results for this | | | | 7:44 PM | | procedure are in the | | | | PDT | | results section. | + +--------+ + + + | CULTURE, BLOOD, 2ND | STAT | 07/17/2017 | | Results for this | | SPECIMEN (NON-ORD) | | 7:08 PM | | procedure are in the | | | | PDT | | results section. | + +--------+ + + + | EXTERNAL LAB: CBC | Routin | 07/17/2017 | | Results for this | | | e | 6:24 PM | | procedure are in the | | | | PDT | | results section. | + +--------+ + + + | CULTURE, BLOOD | STAT | 07/17/2017 | | Results for this | | | | 6:24 PM | | procedure are in the | | | | PDT | | results section. | + +--------+ + + + | COMPREHENSIVE | Routin | 07/17/2017 | | Results for this | | METABOLIC PANEL | e | 6:24 PM | | procedure are in the | | | | PDT | | results section. | + +--------+ + + + documented in this encounter Results External Lab: CBC (07/22/2017 4:37 AM PDT) + + + + + + | Component | Value | Ref Range | Performed | Pathologist | | | | | At | Signature | + + + + + + | WBC | 6.84 | 3.80 - 11.00 | EXTERNAL | | | | | K/uL | LAB | | + + + + + + | Non- | 4.69 | 4.20 - 5.70 | EXTERNAL | | | Red Blood | | M/uL | LAB | | | Cells | | | | | | Counted | | | | | + + + + + + | Hemoglobin | 13.1 (L) | 13.2 - 17.0 | EXTERNAL | | | | | g/dL | LAB | | + + + + + + | Hematocrit, | 39.8 | 39.0 - 50.0 % | EXTERNAL | | | POC | | | LAB | | + + + + + + | MCV | 84.9 | 80.0 - 100.0 fl | EXTERNAL | | | | | | LAB | | + + + + + + | MCH | 28.0 | 27.0 - 34.0 pg | EXTERNAL | | | | | | LAB | | + + + + + + | MCHC | 33.0 | 32.0 - 35.5 | EXTERNAL | | | | | g/dL | LAB | | + + + + + + | RDW-CV | 43.3 | 37 - 53 fl | EXTERNAL | | | | | | LAB | | + + + + + + | Platelet | 328 | 150 - 400 K/uL | EXTERNAL | | | Count | | | LAB | | | Plasma | | | | | + + + + + + | MPV | 8.6 | fl | EXTERNAL | | | | | | LAB | | + + + + + + | Differentia | AUTOMATED | | EXTERNAL | | | l Type | | | LAB | | + + + + + + | % Segmented | 59.91 | % | EXTERNAL | | | | | | LAB | | | Neutrophils | | | | | + + + + + + | % | 27.90 | % | EXTERNAL | | | Lymphocytes | | | LAB | | + + + + + + | % Monocytes | 6.87 | % | EXTERNAL | | | | | | LAB | | + + + + + + | % | 4.51 | % | EXTERNAL | | | Eosinophils | | | LAB | | + + + + + + | % Basophils | 0.81 | % | EXTERNAL | | | | | | LAB | | + + + + + + | Absolute | 4.10 | 1.90 - 7.40 | EXTERNAL | | | Segmented | | K/uL | LAB | | | Neutrophils | | | | | + + + + + + | Absolute | 1.91 | 1.00 - 3.90 | EXTERNAL | | | Lymphocytes | | K/uL | LAB | | + + + + + + | Absolute | 0.47 | 0.00 - 0.80 | EXTERNAL | | | Monocytes | | K/uL | LAB | | + + + + + + | Absolute | 0.31 | 0.00 - 0.50 | EXTERNAL | | | Eosinophils | | K/uL | LAB | | + + + + + + | Absolute | 0.06Comment: Testing | 0.00 - 0.10 | EXTERNAL | | | Basophils | performed at [facility], [address] | [address] | LAB | | | | [address], | | | | | | [place] [address] | | | | + + + + + + + + | Specimen | + + | Blood specimen | | (specimen) | + + + +---------+ + + | Performing | Address | City/State/Zipcode | Phone Number | | Organization | | | | + +---------+ + + | EXTERNAL LAB | | | | + +---------+ + + Magnesium (07/22/2017 4:37 AM PDT) + + + + + + | Component | Value | Ref Range | Performed | Pathologist | | | | | At | Signature | + + + + + + | Magnesium | 2.1Comment: Testing | 1.7 - 2.4 mg/dL | EXTERNAL | | | | performed at [facility], [address] | | LAB | | | | [address], | | | | | | [place] [address] | | | | + + + [...] + +---------+ + + Comprehensive Metabolic Panel (07/22/2017 4:37 AM PDT) + + + + + + | Component | Value | Ref Range | Performed | Pathologist | | | | | At | Signature | + + + + + + | Na | 135 | 135 - 145 | EXTERNAL | | | | | mmol/L | LAB | | + + + + + + | K | 4.1 | 3.5 - 4.9 | EXTERNAL | [...] + + + | Anion Gap | 14 | 5 - 20 mmol/L | EXTERNAL | | | | | | LAB | | + + + + + + | Glucose, | 117 (H) | 65 - 99 mg/dL | EXTERNAL | | | Fasting | | | LAB | | + + + + + + | BUN | 19 | 8 - 25 mg/dL | EXTERNAL | | | | | | LAB | | + + + + + + | Creatinine | 0.9 | 0.70 - 1.30 | EXTERNAL | | | | | mg/dL | LAB | | + + + + + + | BUN/Creatin | 21 | | EXTERNAL | | | ine Ratio | | | LAB | | + + + + + + | Calcium | 9.1 | 8.5 - 10.5 | EXTERNAL | | | | | mg/dL | LAB | | + + + + + + | Protein, | 8.2 | 6.3 - 8.2 g/dL | EXTERNAL | | | Total | | | LAB | | + + + + + + | Albumin | 2.5 (L) | 3.6 - 5.0 g/dL | EXTERNAL | | | | | | LAB | | + + + + + + | Globulin | 5.7 (H) | 1.3 - 4.9 g/dL | EXTERNAL | | | | | | LAB | | + + + + + + | A/G Ratio | 0.4 (L) | 1.0 - 2.4 | EXTERNAL | | | | | | LAB | | + + + + + + | Bilirubin | 0.2 | 0.1 - 1.5 mg/dL | EXTERNAL | | | Total | | | LAB | | + + + + + + | ALP, | 169 (H) | 35 - 115 U/L | EXTERNAL | | | External | | | LAB | | + + + + + + | AST | 30 | 10 - 45 U/L | EXTERNAL | | | | | | LAB | | + + + + + + | ALT | 57 | 10 - 65 U/L | EXTERNAL [...] | | | | | | at [address], [address] | | | | | | [address], | | | | | | [place] [address] | | | | + + + [...] + +---------+ + + Sedimentation rate, automated (07/21/2017 4:44 AM PDT) + + + + + + | Component | Value | Ref Range | Performed | Pathologist | | | | | At | Signature | + + + + + + | Sed Rate | >130 (H)Comment: Testing | 0 - 20 mm/Hr | EXTERNAL | | | | performed at [facility], [address] | LAB | | | | [address], | | | | | | [place] [address] | | | | + + + [...] + +---------+ + + External Lab: CBC (07/21/2017 4:44 AM PDT) + + + + + + | Component | Value | Ref Range | Performed | Pathologist | | | | | At | Signature | + + + + + + | WBC | 6.73 | 3.80 - 11.00 | EXTERNAL | | | | | K/uL | LAB | | + + + + + + | Non- | 4.49 | 4.20 - 5.70 | EXTERNAL | | | Red Blood | | M/uL | LAB | | | Cells | | | | | | Counted | | | | | + + + + + + | Hemoglobin | 12.9 (L) | 13.2 - 17.0 | EXTERNAL | | | | | g/dL | LAB | | + + + + + + | Hematocrit, | 38.0 (L) | 39.0 - 50.0 % | EXTERNAL | | | POC | | | LAB | | + + + + + + | MCV | 84.5 | 80.0 - 100.0 fl | EXTERNAL | | | | | | LAB | | + + + + + + | MCH | 28.7 | 27.0 - 34.0 pg | EXTERNAL | | | | | | LAB | | + + + + + + | MCHC | 33.9 | 32.0 - 35.5 | EXTERNAL | | | | | g/dL | LAB | | + + + + + + | RDW-CV | 44.2 | 37 - 53 fl | EXTERNAL | | | | | | LAB | | + + + + + + | Platelet | 262 | 150 - 400 K/uL | EXTERNAL | | | Count | | | LAB | | | Plasma | | | | | + + + + + + | MPV | 8.7 | fl | EXTERNAL | | | | | | LAB | | + + + + + + | Differentia | AUTOMATED | | EXTERNAL | | | l Type | | | LAB | | + + + + + + | % Segmented | 62.13 | % | EXTERNAL | | | | | | LAB | | | Neutrophils | | | | | + + + + + + | % | 24.54 | % | EXTERNAL | | | Lymphocytes | | | LAB | | + + + + + + | % Monocytes | 8.02 | % | EXTERNAL | | | | | | LAB | | + + + + + + | % | 4.37 | % | EXTERNAL | | | Eosinophils | | | LAB | | + + + + + + | % Basophils | 0.94 | % | EXTERNAL | | | | | | LAB | | + + + + + + | Absolute | 4.18 | 1.90 - 7.40 | EXTERNAL | | | Segmented | | K/uL | LAB | | | Neutrophils | | | | | + + + + + + | Absolute | 1.65 | 1.00 - 3.90 | EXTERNAL | | | Lymphocytes | | K/uL | LAB | | + + + + + + | Absolute | 0.54 | 0.00 - 0.80 | EXTERNAL | | | Monocytes | | K/uL | LAB | | + + + + + + | Absolute | 0.29 | 0.00 - 0.50 | EXTERNAL | | | Eosinophils | | K/uL | LAB | | + + + + + + | Absolute | 0.06Comment: Testing | 0.00 - 0.10 | EXTERNAL | | | Basophils | performed at [facility], [address] | [address] | LAB | | | | [address], | | | | | | [place] [address] | | | | + + + + + + + + | Specimen | + + | Blood specimen | | (specimen) | + + + +---------+ + + | Performing | Address | City/State/Zipcode | Phone Number | | Organization | | | | + +---------+ + + | EXTERNAL LAB | | | | + +---------+ + + C-Reactive Protein (07/21/2017 4:44 AM PDT) + + + + + + | Component | Value | Ref Range | Performed | Pathologist | | | | | At | Signature | + + + + + + | CRP | 12.1 (H)Comment: Testing | mg/dL | EXTERNAL | | | | performed at [facility], [address] | | LAB | | | | [address], | | | | | | [place] [address] | | | | + + + + + + + + | Specimen | + + | Blood specimen | | (specimen) | + + + +---------+ + + | Performing | Address | City/State/Zipcode | Phone Number | | Organization | | | | + +---------+ + + | EXTERNAL LAB | | | | + +---------+ + + Magnesium (07/21/2017 4:44 AM PDT) + + + + + + | Component | Value | Ref Range | Performed | Pathologist | | | | | At | Signature | + + + + + + | Magnesium | 2.0Comment: Testing | 1.7 - 2.4 mg/dL | EXTERNAL | | | | performed at [facility], [address] | | LAB | | | | [address], | | | | | | [place] [address] | | | | + + + [...] + +---------+ + + Comprehensive Metabolic Panel (07/21/2017 4:44 AM PDT) + + + + + + | Component | Value | Ref Range | Performed | Pathologist | | | | | At | Signature | + + + + + + | Na | 132 (L) | 135 - 145 | EXTERNAL | | | | | mmol/L | LAB | | + + + + + + | K | 4.1 | 3.5 - 4.9 | EXTERNAL | | | | | mmol/L | LAB | | + + + + + + | Cl | 99 | 99 - 109 mmol/L | EXTERNAL | | | | | | LAB | | + + + + + + | CO2 | 24 | 23 - 32 mmol/L | EXTERNAL | | | | | | LAB | | + + + + + + | Anion Gap | 13 | 5 - 20 mmol/L | EXTERNAL | | | | | | LAB | | + + + + + + | Glucose, | 183 (H) | 65 - 99 mg/dL | EXTERNAL | | | Fasting | | | LAB | | + + + + + + | BUN | 15 | 8 - 25 mg/dL | EXTERNAL | | | | | | LAB | | + + + + + + | Creatinine | 0.8 | 0.70 - 1.30 | EXTERNAL | | | | | mg/dL | LAB | | + + + + + + | BUN/Creatin | 19 | | EXTERNAL | | | ine Ratio | | | LAB | | + + + + + + | Calcium | 8.7 | 8.5 - 10.5 | EXTERNAL | | | | | mg/dL | LAB | | + + + + + + | Protein, | 7.9 | 6.3 - 8.2 g/dL | EXTERNAL | | | Total | | | LAB | | + + + + + + | Albumin | 2.5 (L) | 3.6 - 5.0 g/dL | EXTERNAL | | | | | | LAB | | + + + + + + | Globulin | 5.4 (H) | 1.3 - 4.9 g/dL | EXTERNAL | | | | | | LAB | | + + + + + + | A/G Ratio | 0.5 (L) | 1.0 - 2.4 | EXTERNAL | | | | | | LAB | | + + + + + + | Bilirubin | 0.3 | 0.1 - 1.5 mg/dL | EXTERNAL | | | Total | | | LAB | | + + + + + + | ALP, | 178 (H) | 35 - 115 U/L | EXTERNAL | | | External | | | LAB | | + + + + + + | AST | 28 | 10 - 45 U/L | EXTERNAL | | | | | | LAB | | + + + + + + | ALT | 66 (H) | 10 - 65 U/L | EXTERNAL [...] | | | | | | at [facility], [address] | | | | | | [facility], | | | | | | [place] [address] | | | | + + + [...] + +---------+ + + External Lab: CBC (07/20/2017 5:01 AM PDT) + + + + + + | Component | Value | Ref Range | Performed | Pathologist | | | | | At | Signature | + + + + + + | WBC | 6.52 | 3.80 - 11.00 | EXTERNAL | | | | | K/uL | LAB | | + + + + + + | Non- | 4.63 | 4.20 - 5.70 | EXTERNAL | | | Red Blood | | M/uL | LAB | | | Cells | | | | | | Counted | | | | | + + + + + + | Hemoglobin | 13.0 (L) | 13.2 - 17.0 | EXTERNAL | | | | | g/dL | LAB | | + + + + + + | Hematocrit, | 39.5 | 39.0 - 50.0 % | EXTERNAL | | | POC | | | LAB | | + + + + + + | MCV | 85.4 | 80.0 - 100.0 fl | EXTERNAL | | | | | | LAB | | + + + + + + | MCH | 28.0 | 27.0 - 34.0 pg | EXTERNAL | | | | | | LAB | | + + + + + + | MCHC | 32.8 | 32.0 - 35.5 | EXTERNAL | | | | | g/dL | LAB | | + + + + + + | RDW-CV | 44.6 | 37 - 53 fl | EXTERNAL | | | | | | LAB | | + + + + + + | Platelet | 203 | 150 - 400 K/uL | EXTERNAL | | | Count | | | LAB | | | Plasma | | | | | + + + + + + | MPV | 8.9 | fl | EXTERNAL | | | | | | LAB | | + + + + + + | Differentia | AUTOMATED | | EXTERNAL | | | l Type | | | LAB | | + + + + + + | % Segmented | 64.14 | % | EXTERNAL | | | | | | LAB | | | Neutrophils | | | | | + + + + + + | % | 24.96 | % | EXTERNAL | | | Lymphocytes | | | LAB | | + + + + + + | % Monocytes | 7.04 | % | EXTERNAL | | | | | | LAB | | + + + + + + | % | 3.06 | % | EXTERNAL | | | Eosinophils | | | LAB | | + + + + + + | % Basophils | 0.80 | % | EXTERNAL | | | | | | LAB | | + + + + + + | Absolute | 4.18 | 1.90 - 7.40 | EXTERNAL | | | Segmented | | K/uL | LAB | | | Neutrophils | | | | | + + + + + + | Absolute | 1.63 | 1.00 - 3.90 | EXTERNAL | | | Lymphocytes | | K/uL | LAB | | + + + + + + | Absolute | 0.46 | 0.00 - 0.80 | EXTERNAL | | | Monocytes | | K/uL | LAB | | + + + + + + | Absolute | 0.20 | 0.00 - 0.50 | EXTERNAL | | | Eosinophils | | K/uL | LAB | | + + + + + + | Absolute | 0.05Comment: Testing | 0.00 - 0.10 | EXTERNAL | | | Basophils | performed at [facility], [address] | [address] | LAB | | | | [address], | | | | | | [place] [address] | | | | + + + + + + + + | Specimen | + + | Blood specimen | | (specimen) | + + + +---------+ + + | Performing | Address | City/State/Zipcode | Phone Number | | Organization | | | | + +---------+ + + | EXTERNAL LAB | | | | + +---------+ + + Magnesium (07/20/2017 5:01 AM PDT) + + + + + + | Component | Value | Ref Range | Performed | Pathologist | | | | | At | Signature | + + + + + + | Magnesium | 2.3Comment: Testing | 1.7 - 2.4 mg/dL | EXTERNAL | | | | performed at [facility], [address] | | LAB | | | | [address], | | | | | | [place] [address] | | | | + + + + + + + + | Specimen | + + | Blood specimen | | (specimen) | + + + +---------+ + + | Performing | Address | City/State/Zipcode | Phone Number | | Organization | | | | + +---------+ + + | EXTERNAL LAB | | | | + +---------+ + + CK Total (07/20/2017 5:01 AM PDT) + + + + + + | Component | Value | Ref Range | Performed | Pathologist | | | | | At | Signature | + + + + + + | CK, Total | 52 (L)Comment: Testing | 55 - 400 U/L | EXTERNAL | | | | performed at [facility] | | LAB | | | | [address];[place], [place] | | | | | | [address] | | | | + + + [...] + +---------+ + + Comprehensive Metabolic Panel (07/20/2017 5:01 AM PDT) + + + + + + | Component | Value | Ref Range | Performed | Pathologist | | | | | At | Signature | + + + + + + | Na | 134 (L) | 135 - 145 | EXTERNAL | | | | | mmol/L | LAB | | + + + + + + | K | 4.5 | 3.5 - 4.9 | EXTERNAL | [...] + + + | Anion Gap | 14 | 5 - 20 mmol/L | EXTERNAL | | | | | | LAB | | + + + + + + | Glucose, | 163 (H) | 65 - 99 mg/dL | EXTERNAL | | | Fasting | | | LAB | | + + + + + + | BUN | 14 | 8 - 25 mg/dL | EXTERNAL | | | | | | LAB | | + + + + + + | Creatinine | 0.8 | 0.70 - 1.30 | EXTERNAL | | | | | mg/dL | LAB | | + + + + + + | BUN/Creatin | 18 | | EXTERNAL | | | ine Ratio | | | LAB | | + + + + + + | Calcium | 9.0 | 8.5 - 10.5 | EXTERNAL | | | | | mg/dL | LAB | | + + + + + + | Protein, | 8.0 | 6.3 - 8.2 g/dL | EXTERNAL | | | Total | | | LAB | | + + + + + + | Albumin | 2.5 (L) | 3.6 - 5.0 g/dL | EXTERNAL | | | | | | LAB | | + + + + + + | Globulin | 5.5 (H) | 1.3 - 4.9 g/dL | EXTERNAL | | | | | | LAB | | + + + + + + | A/G Ratio | 0.5 (L) | 1.0 - 2.4 | EXTERNAL | | | | | | LAB | | + + + + + + | Bilirubin | 0.2 | 0.1 - 1.5 mg/dL | EXTERNAL | | | Total | | | LAB | | + + + + + + | ALP, | 200 (H) | 35 - 115 U/L | EXTERNAL | | | External | | | LAB | | + + + + + + | AST | 57 (H) | 10 - 45 U/L | EXTERNAL | | | | | | LAB | | + + + + + + | ALT | 92 (H) | 10 - 65 U/L | EXTERNAL [...] [address], | | | | | | [place] [address] | | | | + + + [...] + +---------+ + + External Lab: CBC (07/19/2017 8:44 AM PDT) + + + + + + | Component | Value | Ref Range | Performed | Pathologist | | | | | At | Signature | + + + + + + | WBC | 9.38 | 3.80 - 11.00 | EXTERNAL | | | | | K/uL | LAB | | + + + + + + | Non- | 4.73 | 4.20 - 5.70 | EXTERNAL | [...] + + + + | Hematocrit, | 40.6 | 39.0 - 50.0 % | EXTERNAL | | | POC | | | LAB | | + + + + + + | MCV | 85.8 | 80.0 - 100.0 fl | EXTERNAL | | | | | | LAB | | + + + + + + | MCH | 28.6 | 27.0 - 34.0 pg | EXTERNAL | | | | | | LAB | | + + + + + + | MCHC | 33.3 | 32.0 - 35.5 | EXTERNAL | | | | | g/dL | LAB | | + + + + + + | RDW-CV | 45.1 | 37 - 53 fl | EXTERNAL | | | | | | LAB | | + + + + + + | Platelet | 206 | 150 - 400 K/uL | EXTERNAL | | | Count | | | LAB | | | Plasma | | | | | + + + + + + | MPV | 9.0 | fl | EXTERNAL | | | | | | LAB | | + + + + + + | Differentia | AUTOMATED | | EXTERNAL | | | l Type | | | LAB | | + + + + + + | % Segmented | 73.46 | % | EXTERNAL | | | | | | LAB | | | Neutrophils | | | | | + + + + + + | % | 19.45 | % | EXTERNAL | | | Lymphocytes | | | LAB | | + + + + + + | % Monocytes | 5.22 | % | EXTERNAL | | | | | | LAB | | + + + + + + | % | 1.41 | % | EXTERNAL | | | Eosinophils | | | LAB | | + + + + + + | % Basophils | 0.46 | % | EXTERNAL | | | | | | LAB | | + + + + + + | Absolute | 6.89 | 1.90 - 7.40 | EXTERNAL | | | Segmented | | K/uL | LAB | | | Neutrophils | | | | | + + + + + + | Absolute | 1.82 | 1.00 - 3.90 | EXTERNAL | | | Lymphocytes | | K/uL | LAB | | + + + + + + | Absolute | 0.49 | 0.00 - 0.80 | EXTERNAL | | | Monocytes | | K/uL | LAB | | + + + + + + | Absolute | 0.13 | 0.00 - 0.50 | EXTERNAL | | | Eosinophils | | K/uL | LAB | | + + + + + + | Absolute | 0.04Comment: Testing | 0.00 - 0.10 | EXTERNAL | | | Basophils | performed at [facility], [address] | [address] | LAB | | | | [address], | | | | | | [place] [address] | | | | + + + + + + + + | Specimen | + + | Blood specimen | | (specimen) | + + + +---------+ + + | Performing | Address | City/State/Zipcode | Phone Number | | Organization | | | | + +---------+ + + | EXTERNAL LAB | | | | + +---------+ + + Magnesium (07/19/2017 8:44 AM PDT) + + + + + + | Component | Value | Ref Range | Performed | Pathologist | | | | | At | Signature | + + + + + + | Magnesium | 2.2Comment: Testing | 1.7 - 2.4 mg/dL | EXTERNAL | | | | performed at [facility] | | LAB | | | | [address];[place] | | | | | | [address] | | | | + + + [...] + +---------+ + + Comprehensive Metabolic Panel (07/19/2017 8:44 AM PDT) + + + + + + | Component | Value | Ref Range | Performed | Pathologist | | | | | At | Signature | + + + + + + | Na | 135 | 135 - 145 | EXTERNAL | | | | | mmol/L | LAB | | + + + + + + | K | 4.1 | 3.5 - 4.9 | EXTERNAL | | | | | mmol/L | LAB | | + + + + + + | Cl | 102 | 99 - 109 mmol/L | EXTERNAL | | | | | | LAB | | + + + + + + | CO2 | 24 | 23 - 32 mmol/L | EXTERNAL | | | | | | LAB | | + + + + + + | Anion Gap | 13 | 5 - 20 mmol/L | EXTERNAL | | | | | | LAB | | + + + + + + | Glucose, | 142 (H) | 65 - 99 mg/dL | EXTERNAL | | | Fasting | | | LAB | | + + + + + + | BUN | 12 | 8 - 25 mg/dL | EXTERNAL | | | | | | LAB | | + + + + + + | Creatinine | 0.96 | 0.70 - 1.30 | EXTERNAL | | | | | mg/dL | LAB | | + + + + + + | BUN/Creatin | 12 | | EXTERNAL | | | ine Ratio | | | LAB | | + + + + + + | Calcium | 8.5 | 8.5 - 10.5 | EXTERNAL | | | | | mg/dL | LAB | | + + + + + + | Protein, | 8.0 | 6.3 - 8.2 g/dL | EXTERNAL | | | Total | | | LAB | | + + + + + + | Albumin | 2.6 (L) | 3.6 - 5.0 g/dL | EXTERNAL | | | | | | LAB | | + + + + + + | Globulin | 5.4 (H) | 1.3 - 4.9 g/dL | EXTERNAL | | | | | | LAB | | + + + + + + | A/G Ratio | 0.5 (L) | 1.0 - 2.4 | EXTERNAL | | | | | | LAB | | + + + + + + | Bilirubin | 0.6 | 0.1 - 1.5 mg/dL | EXTERNAL | | | Total | | | LAB | | + + + + + + | ALP, | 182 (H) | 35 - 115 U/L | EXTERNAL | | | External | | | LAB | | + + + + + + | AST | 160 (H) | 10 - 45 U/L | EXTERNAL | | | | | | LAB | | + + + + + + | ALT | 103 (H) | 10 - 65 U/L | EXTERNAL [...] | | | | | | [place] [facility] [place] [place] [address] | | | | | | [facility];[place] [address] | | | | + + + + + + + + | Specimen | + + | Blood specimen | | (specimen) | + + + +---------+ + + | Performing | Address | City/State/Zipcode | Phone Number | | Organization | | | | + +---------+ + + | EXTERNAL LAB | | | | + +---------+ + + VAS Lower Extremity Venous Right (07/18/2017 6:15 PM PDT) + + | Specimen | + + | | + + + + + | Impressions | Performed At | + + + | 1. No evidence of lower extremity deep vein thrombosis. | | | | | + + + + + + | Narrative | Performed At | + + + | [facility] 1965 US LOWER EXTREMITY VENOUS DOPPLER RIGHT | | | 07/18/2017 6:15 PM HISTORY: Right-sided lower extremity pain and | | | swelling COMPARISON: Ultrasound, 06/25/2014 TECHNIQUE: Right | | | lower extremity venous duplex, villagomez scale, color flow and spectral | | | analysis performed FINDINGS: The deep venous system is normal on | | | grayscale imaging. Normal compressibility and augmentation is | | | demonstrated. The calf veins are patent on color flow assessment. | | | There is no Carrera's cyst. | | + + + + + | Procedure Note | + + | Melquiades, Amaury Trevino - 06/23/2019 10:51 PM [facility]1965US LOWER | | EXTREMITY VENOUS DOPPLER RIGHT07/18/2017 6:15 PM HISTORY: Right-sided lower extremity pain | | and swelling COMPARISON: Ultrasound, 06/25/2014 TECHNIQUE: Right lower extremity venous | | duplex, villagomez scale, color flow and spectral analysis performed FINDINGS: The deep venous | | system is normal on grayscale imaging. Normal compressibility and augmentation is | | demonstrated. The calf veins are patent on color flow assessment. There is no Carrera's | | cyst. IMPRESSION: 1. No evidence of lower extremity deep vein thrombosis. | | | | | |TECHNIQUE: Right lower extremity venous duplex, villagomez scale, color flow and spectral analysi s performed | | | |FINDINGS: The deep venous system is normal on grayscale imaging. Normal compressibility and augmentation is demonstrated. The calf veins are patent on color flow assessment. There is no Carrera's cyst. | | | |IMPRESSION: | |1. No evidence of lower extremity deep vein thrombosis. | | | | | + + Procalcitonin (07/18/2017 5:51 AM PDT) + + + + + + | Component | Value | Ref Range | Performed | Pathologist | | | | | At | Signature | + + + + + + | PROCALCITON | 0.88 (H)Comment: | ng/mL | EXTERNAL | | | IN | INTERPRETIVE | | LAB | | | | INFORMATION: | | | | | | PROCALCITONIN PCT <= | | | | | | 0.5 ng/mL: Low risk | | | | | | for progression to | | | | | | severe systemic | | | | | | bacterial infection | | | | | | (severe sepsis/septic | | | | | | shock). Does not | | | | | | exclude an infection, | | | | | | because localized | | | | | | infections may be | | | | | | associated with such low | | | | | | levels. If PCT is | | | | | | measured very early | | | | | | after bacterial | | | | | | challenge (usually <6 | | | | | | hours), results may | | | | | | still be low and | | | | | | should re-assess PCT | | | | | | 6-24 hours later. PCT | | | | | | >0.5 and <= 2 ng/mL: | | | | | | Moderate risk for | | | | | | progression to severe | | | | | | systemic infection | | | | | | (severe sepsis/septic | | | | | | shock). Other | | | | | | conditions are known | | | | | | to elevate PCT, patient | | | | | | should be closely | | | | | | monitored both | | | | | | clinically and by | | | | | | re-assessing PCT | | | | | | within 6-24 hours. PCT > | | | | | | 2 ng/mL: High | | | | | | likelihood for | | | | | | progression to severe | | | | | | systemic bacterial | | | | | | infection (severe | | | | | | sepsis/septic shock). | | | | | | PCT >= 10 ng/mL: | | | | | | High likelihood of | | | | | | severe sepsis or septic | | | | | | shock.Testing performed | | | | | | at [facility] [place] [address] | | | | | | [facility];[place] [address] | | | | + + + + + + + + | Specimen | + + | | + + + +---------+ + + | Performing | Address | City/State/Zipcode | Phone Number | | Organization | | | | + +---------+ + + | EXTERNAL LAB | | | | + +---------+ + + External Lab: CBC (07/18/2017 5:51 AM PDT) + + + + + + | Component | Value | Ref Range | Performed | Pathologist | | | | | At | Signature | + + + + + + | WBC | 9.01 | 3.80 - 11.00 | EXTERNAL | | | | | K/uL | LAB | | + + + + + + | Non- | 4.59 | 4.20 - 5.70 | EXTERNAL | | | Red Blood | | M/uL | LAB | | | Cells | | | | | | Counted | | | | | + + + + + + | Hemoglobin | 13.1 (L) | 13.2 - 17.0 | EXTERNAL | | | | | g/dL | LAB | | + + + + + + | Hematocrit, | 39.0 | 39.0 - 50.0 % | EXTERNAL | | | POC | | | LAB | | + + + + + + | MCV | 85.0 | 80.0 - 100.0 fl | EXTERNAL | | | | | | LAB | | + + + + + + | MCH | 28.5 | 27.0 - 34.0 pg | EXTERNAL | | | | | | LAB | | + + + + + + | MCHC | 33.6 | 32.0 - 35.5 | EXTERNAL | | | | | g/dL | LAB | | + + + + + + | RDW-CV | 42.9 | 37 - 53 fl | EXTERNAL | | | | | | LAB | | + + + + + + | Platelet | 212 | 150 - 400 K/uL | EXTERNAL | | | Count | | | LAB | | | Plasma | | | | | + + + + + + | MPV | 9.2 | fl | EXTERNAL | | | | | | LAB | | + + + + + + | Differentia | AUTOMATED | | EXTERNAL | | | l Type | | | LAB | | + + + + + + | % Segmented | 73.29 | % | EXTERNAL | | | | | | LAB | | | Neutrophils | | | | | + + + + + + | % | 19.17 | % | EXTERNAL | | | Lymphocytes | | | LAB | | + + + + + + | % Monocytes | 4.94 | % | EXTERNAL | | | | | | LAB | | + + + + + + | % | 2.16 | % | EXTERNAL | | | Eosinophils | | | LAB | | + + + + + + | % Basophils | 0.44 | % | EXTERNAL | | | | | | LAB | | + + + + + + | Absolute | 6.61 | 1.90 - 7.40 | EXTERNAL | | | Segmented | | K/uL | LAB | | | Neutrophils | | | | | + + + + + + | Absolute | 1.73 | 1.00 - 3.90 | EXTERNAL | | | Lymphocytes | | K/uL | LAB | | + + + + + + | Absolute | 0.45 | 0.00 - 0.80 | EXTERNAL | | | Monocytes | | K/uL | LAB | | + + + + + + | Absolute | 0.20 | 0.00 - 0.50 | EXTERNAL | | | Eosinophils | | K/uL | LAB | | + + + + + + | Absolute | 0.04Comment: Testing | 0.00 - 0.10 | EXTERNAL | | | Basophils | performed at [facility], [address] | K/uL | LAB | | | | [address], | | | | | | [place] [address] | | | | + + + + + + + + | Specimen | + + | Blood specimen | | (specimen) | + + + +---------+ + + | Performing | Address | City/State/Zipcode | Phone Number | | Organization | | | | + +---------+ + + | EXTERNAL LAB | | | | + +---------+ + + Phosphorus (07/18/2017 5:51 AM PDT) + + + + + + | Component | Value | Ref Range | Performed | Pathologist | | | | | At | Signature | + + + + + + | PHOSPHORUS | 3.0Comment: Testing | 2.3 - 4.8 mg/dL | EXTERNAL | | | | performed at [facility];[address] | | LAB | | | | [address];[place], [place] | | | | | | [address] | | | | + + + + + + + + | Specimen | + + | Blood specimen | | (specimen) | + + + +---------+ + + | Performing | Address | City/State/Zipcode | Phone Number | | Organization | | | | + +---------+ + + | EXTERNAL LAB | | | | + +---------+ + + Magnesium (07/18/2017 5:51 AM PDT) + + + + + + | Component | Value | Ref Range | Performed | Pathologist | | | | | At | Signature | + + + + + + | Magnesium | 2.1Comment: Testing | 1.7 - 2.4 mg/dL | EXTERNAL | | | | performed at [facility];[address] | | LAB | | | | [address];[place], [place] | | | | | | [address] | | | | + + + + + + + + | Specimen | + + | Blood specimen | | (specimen) | + + + +---------+ + + | Performing | Address | City/State/Zipcode | Phone Number | | Organization | | | | + +---------+ + + | EXTERNAL LAB | | | | + +---------+ + + Basic Metabolic Panel (07/18/2017 5:51 AM PDT) + + + + + + | Component | Value | Ref Range | Performed | Pathologist | | | | | At | Signature | + + + + + + | Na | 134 (L) | 135 - 145 | EXTERNAL | | | | | mmol/L | LAB | | + + + + + + | K | 3.2 (L) | 3.5 - 4.9 | EXTERNAL | | | | | mmol/L | LAB | | + + + + + + | Cl | 100 | 99 - 109 mmol/L | EXTERNAL | | | | | | LAB | | + + + + + + | CO2 | 27 | 23 - 32 mmol/L | EXTERNAL | | | | | | LAB | | + + + + + + | Anion Gap | 11 | 5 - 20 mmol/L | EXTERNAL | | | | | | LAB | | + + + + + + | Glucose, | 132 (H) | 65 - 99 mg/dL | EXTERNAL | | | Fasting | | | LAB | | + + + + + + | BUN | 16 | 8 - 25 mg/dL | EXTERNAL | | | | | | LAB | | + + + + + + | Creatinine | 0.94 | 0.70 - 1.30 | EXTERNAL | | | | | mg/dL | LAB | | + + + + + + | BUN/Creatin | 18 | | EXTERNAL | | | ine Ratio | | | LAB | | + + + + + + | Calcium | 7.9 (L) | 8.5 - 10.5 | EXTERNAL | [...] | | | | | | at [facility];[address] [place] [address] | | | | | | [facility];[place] [address] | | | | + + + + + + + + | Specimen | + + | Blood specimen | | (specimen) | + + + +---------+ + + | Performing | Address | City/State/Zipcode | Phone Number | | Organization | | | | + +---------+ + + | EXTERNAL LAB | | | | + +---------+ + + MRSA NAAT (07/17/2017 7:44 PM PDT) + + | Specimen | + + | | + + + + + | Narrative | Performed At | + + + | SOURCE NARES(NOSE) MRSA | EXTERNAL LAB | | PCR NEGATIVE Testing | | | performed at [facility];[address] [place] [address];[place] [address] | | + + + + +---------+ + + | Performing | Address | City/State/Zipcode | Phone Number | | Organization | | | | + +---------+ + + | EXTERNAL LAB | | | | + +---------+ + + Culture, Blood, 2nd Specimen (07/17/2017 7:08 PM PDT) + + | Specimen | + + | Blood specimen | | (specimen) | + + + + + | Narrative | Performed At | + + + | Specimen Description BLOOD, PERIPHERAL DRAW | EXTERNAL LAB | | SPECIAL REQUESTS LEFT HAND CULTURE | | | NO GROWTH 6 DAYS | | + + + + +---------+ + + | Performing | Address | City/State/Zipcode | Phone Number | | Organization | | | | + +---------+ + + | EXTERNAL LAB | | | | + +---------+ + + Culture, Blood (07/17/2017 6:24 PM PDT) + + | Specimen | + + | Blood specimen | | (specimen) | + + + + + | Narrative | Performed At | + + + | Specimen Description BLOOD, PERIPHERAL DRAW | EXTERNAL LAB | | SPECIAL REQUESTS RAC CULTURE | | | NO GROWTH 6 DAYS | | + + + + +---------+ + + | Performing | Address | City/State/Zipcode | Phone Number | | Organization | | | | + +---------+ + + | EXTERNAL LAB | | | | + +---------+ + + External Lab: CBC (07/17/2017 6:24 PM PDT) + + + + + + | Component | Value | Ref Range | Performed | Pathologist | | | | | At | Signature | + + + + + + | WBC | 13.18 (H) | 3.80 - 11.00 | EXTERNAL | | | | | K/uL | LAB | | + + + + + + | Non- | 5.25 | 4.20 - 5.70 | EXTERNAL | | | Red Blood | | M/uL | LAB | | | Cells | | | | | | Counted | | | | | + + + + + + | Hemoglobin | 14.9 | 13.2 - 17.0 | EXTERNAL | | | | | g/dL | LAB | | + + + + + + | Hematocrit, | 44.3 | 39.0 - 50.0 % | EXTERNAL | | | POC | | | LAB | | + + + + + + | MCV | 84.5 | 80.0 - 100.0 fl | EXTERNAL | | | | | | LAB | | + + + + + + | MCH | 28.4 | 27.0 - 34.0 pg | EXTERNAL | | | | | | LAB | | + + + + + + | MCHC | 33.6 | 32.0 - 35.5 | EXTERNAL | | | | | g/dL | LAB | | + + + + + + | RDW-CV | 44.6 | 37 - 53 fl | EXTERNAL | | | | | | LAB | | + + + + + + | Platelet | 229 | 150 - 400 K/uL | EXTERNAL | | | Count | | | LAB | | | Plasma | | | | | + + + + + + | MPV | 8.9 | fl | EXTERNAL | | | | | | LAB | | + + + + + + | Differentia | AUTOMATED | | EXTERNAL | | | l Type | | | LAB | | + + + + + + | % Segmented | 67.60 | % | EXTERNAL | | | | | | LAB | | | Neutrophils | | | | | + + + + + + | % | 23.78 | % | EXTERNAL | | | Lymphocytes | | | LAB | | + + + + + + | % Monocytes | 6.77 | % | EXTERNAL | | | | | | LAB | | + + + + + + | % | 1.22 | % | EXTERNAL | | | Eosinophils | | | LAB | | + + + + + + | % Basophils | 0.63 | % | EXTERNAL | | | | | | LAB | | + + + + + + | Absolute | 8.91 (H) | 1.90 - 7.40 | EXTERNAL | | | Segmented | | K/uL | LAB | | | Neutrophils | | | | | + + + + + + | Absolute | 3.13 | 1.00 - 3.90 | EXTERNAL | | | Lymphocytes | | K/uL | LAB | | + + + + + + | Absolute | 0.89 (H) | 0.00 - 0.80 | EXTERNAL | | | Monocytes | | K/uL | LAB | | + + + + + + | Absolute | 0.16 | 0.00 - 0.50 | EXTERNAL | | | Eosinophils | | K/uL | LAB | | + + + + + + | Absolute | 0.08Comment: Testing | 0.00 - 0.10 | EXTERNAL | | | Basophils | performed at [facility];[address] | K/uL | LAB | | | | [address];[place] | | | | | | [address] | | | | + + + [...] + +---------+ + + Comprehensive Metabolic Panel (07/17/2017 6:24 PM PDT) + + + + + + | Component | Value | Ref Range | Performed | Pathologist | | | | | At | Signature | + + + + + + | Na | 133 (L) | 135 - 145 | EXTERNAL | | | | | mmol/L | LAB | | + + + + + + | K | 3.6 | 3.5 - 4.9 | EXTERNAL | | | | | mmol/L | LAB | | + + + + + + | Cl | 97 (L) | 99 - 109 mmol/L | [...] + + + + | Glucose, | 129 (H) | 65 - 99 mg/dL | EXTERNAL | | | Fasting | | | LAB | | + + + + + + | BUN | 23 | 8 - 25 mg/dL | EXTERNAL | | | | | | LAB | | + + + + + + | Creatinine | 1.0 | 0.70 - 1.30 | EXTERNAL | | | | | mg/dL | LAB | | + + + + + + | BUN/Creatin | 23 | | EXTERNAL | | | ine Ratio | | | LAB | | + + + + + + | Calcium | 8.7 | 8.5 - 10.5 | EXTERNAL | | | | | mg/dL | LAB | | + + + + + + | Protein, | 9.0 (H) | 6.3 - 8.2 g/dL | EXTERNAL | | | Total | | | LAB | | + + + + + + | Albumin | 3.1 (L) | 3.6 - 5.0 g/dL | EXTERNAL | | | | | | LAB | | + + + + + + | Globulin | 5.9 (H) | 1.3 - 4.9 g/dL | EXTERNAL | | | | | | LAB | | + + + + + + | A/G Ratio | 0.5 (L) | 1.0 - 2.4 | EXTERNAL | | | | | | LAB | | + + + + + + | Bilirubin | 0.4 | 0.1 - 1.5 mg/dL | EXTERNAL | | | Total | | | LAB | | + + + + + + | ALP, | 132 (H) | 35 - 115 U/L | EXTERNAL | | | External | | | LAB | | + + + + + + | AST | 48 (H) | 10 - 45 U/L | EXTERNAL | | | | | | LAB | | + + + + + + | ALT | 55 | 10 - 65 U/L | EXTERNAL [...] | | | | | | at [facility];[address];[place] [address] | | | | + + + [...] + | Diagnosis | + + | Elevated blood pressure Elevated blood pressure reading without diagnosis of | | hypertension | + + | Cellulitis of right lower extremity Cellulitis and abscess of leg, except foot | + + | HIV positive (HCC) Asymptomatic human immunodeficiency virus (HIV) infection status | + + documented in this encounter [...]
--- OUTSIDE RECORDS SUMMARY | ~2020-06-05 | XMS | Encounter Summary ---
Demographics + + + | Address | [address] | | | [place] [address] | + + + | Home Phone [...] Organization | [facility] | | [...] Team Providers + +------+ + | Care Tool Setter Name | Role | Phone | + +------+ + PCP | Unavailable | + +------+ + Encounter Details +--------+ + + + + | Date | Type | Department | Care Team | Description | +--------+ + + + + | 11/13/ | [facility] | [facility] | Roberto Siu MD | | | 2010 | Encounter | [facility] | [address] | | | | | [address] | [address] | | | | | [place] | [place] [address] | | | | | [address] | [phone] | | | | | [phone] | | | +--------+ + + + [...]
--- OUTSIDE RECORDS SUMMARY | ~2020-06-05 | XMS | Encounter Summary ---
Demographics + + + | Address | [address] | | | [place] [address] | + + + | Home Phone [...] Organization | [facility] | | | and [...] Team Providers + +------+ + | Care Practice Director Name | Role | Phone | + +------+ + | Jerome Young MD | PCP | | + +------+ + Encounter Details +--------+ + + + + | Date | Type | Department | Care Team | Description | +--------+ + + + + | 05/05/ | Emergency | [facility] | [facility] | Abscess of axilla, | | 2013 | | [facility] | MD [address] | left; Abscess of | | | | [facility] | [place], | axilla, right | | | | [address] | [place] [address] | | | | | [place] | [phone] | | | | | [address] | | | | | | [phone] | | | +--------+ + + + [...] documented as of this encounter ED Notes Juwan Sanchez ARNP - 05/05/2014 9:17 PM PDT ED Provider Notes by WANDA Blanchard at 05/05/142116 Author: WANDA Blanchard Service: (none) Author Type: Nurse Practitioner Filed: 05/05/142134 Date of Service: 05/05/142116 Status: Signed Diesel Dragline Operator: WANDA Blanchard (Nurse Practitioner) Related Notes: Cosigned by Med Huntley MD (Physician) filed at 05/06/14 0201 Procedures [facility] Department of Emergency Medicine History of Present Illness Patient Identification Pavan Anderson is a 48 y.o. male. Patient information was obtained from patient. History/Exam limitations: none. Patient presented to the Emergency Department by: Car Chief Complaint Chief Complaint Patient presents with Skin Complaint rash to bilateral axilla. States used new deoderant earlier this week. The patient complains of rash under both arms. Onset of symptoms was 4 days ago, with a wor sening course since that time. The symptoms are described to be of moderate severity. The p atient also complains of pain. The patient describes the quality and location of the sympto ms as the following: Tender bumps under both arms. Care prior to arrival consisted of marcella valles, with no relief. The patient relates the following potential exposures: Patient reports using a new deodoran t 4 days ago. Patient reports developing bumps under arms. Patient denies any other sympto ms. Past Medical History Diagnosis Date HIV (human immunodeficiency virus infection) Muscle spasms of neck Hyperlipidemia Cholelithiasis COPD (chronic obstructive pulmonary disease) Chronic mastoiditis Multiple joint pain 05/14/2013 Other chronic pain Past Surgical History Procedure Date Tonsillectomy Fistula repair Tympanoplasty Prior to Admission medications Medication Sig Start Date End Date Taking? Authorizing Provider citalopram (CELEXA) 40 MG tablet Take 1 tablet by mouth daily. 05/14/13 Yes WANDA Lam clonazePAM (KLONOPIN) 0.5 MG tablet Take 0.5 mg by mouth 2 (two) times daily as needed. Y es Historical Provider Darunavir Ethanolate 800 MG TABS Take 800 mg by mouth daily. 03/16/14 03/16/15 Yes Zita basurto MD emtricitabine-tenofovir (TRUVADA) 200-300 MG per tablet Take 1 tablet by mouth daily. 4 03/16/15 Yes Zita Enriquez MD fluticasone (FLONASE) 50 MCG/ACT nasal 1 spray by Nasal route 2 (two) times daily. 09/28/13 09/28/14 Yes WANDA Cary fluticasone (FLOVENT HFA) 220 MCG/ACT [...] Shortness of Breath. 09/28/13 09/28/14 WANDA Wheatley HYDROcodone-acetaminophen (NORCO) 7.5-325 MG per tablet Take 1 tablet by mouth every 8 (eig ht) hours as needed. 03/31/14 04/05/14 WANDA Cary No Known Allergies History Social History Marital Status: Significant Other Spouse Name: N/A Number of Children: N/A Years of Education: N/A Occupational History Not on file. Social History Main Topics Smoking status: Current Every Day Smoker -- 1.0 packs/day for 30 years Types: Cigarettes Smokeless [...] Musculoskeletal: Negative for: myalgias and arthralgias Skin: Positive for painful bumps under both arms. Neuro and psych: Negative for: fainting, head injury, seizure, trouble walking Endocrine/Heme/Lymph: Negative for: swollen lymph nodes, easy bruising Physical Exam BP 150/106 | Pulse 122 | Temp 97.8 F (36.6 C) (Oral) | Resp 16 | Ht 1.727 m (5' 7.99") | Wt 97.1 kg (214 lb 1.1 oz) | BMI 32.56 kg/m2 | SpO2 97% Pulse Oximetry interpretation: Normal hypertensive and tachycardic, otherwise normal vital signs General: Alert, in no apparent distress Eyes: Normal inspection, pupils equal and round, non-icteric ENT: Ears normal Nose normal Pharynx normal Neck: Normal inspection Supple No lymphadenopathy No meningismus Cardiovascular: Rate and rhythm normal No murmurs Respiratory: Breath sounds normal bilaterally Abdomen: Soft, non-tender, non-distended No guarding or rebound Genitourinary: Deferred Rectal exam: Deferred Back: Normal inspection Skin: Lesions: Small tender lesions under both arms, skin intact, no drainage noted Rash: None Associated findings: No lymph node involvement Neuro: No motor deficit No sensory deficit Normal gait Medical Decision Making and Emergency Department Course ED Department Course After introducing myself to the patient, I have performed a careful history and physical ex amination. I have formulated the differential diagnosis that needs to be addressed during t his Emergency Room visit, briefly discussed this differential with the patient, and then dis cussed with them the plan of care. I have also addressed the risks and benefits of all diag nostic and treatment modalities planned for this ED visit. This patient presents with small, hard palpable abscess under both arms. The patient is an appropriate candidate for outpatient management. The patient is well appearing, non-toxic, has no systemic signs or symptoms (fever, vomiting, chills). Patient given instructions for abscess care and prescription for antibiotic. The patient will need to return here or to h is PCP for a re-check within the next 48 hours to assess for resolution or progression of th e abscess. Patient agrees to plan of care. I have discussed my clinical impression and treatment plan with the patient. We have speci fically discussed the signs and symptoms that would constitute the need for an immediate ret urn to the Emergency Department, the importance of continued outpatient follow up and furthe r testing (if deemed necessary by the patient's regular doctor) and the importance of compli ance with the discharge instructions. I have answered any questions that the patient has to the best of my ability. Based upon the patient s history, physical exam, emergency depar tment course, and any laboratory and diagnostic studies which may have been performed, I fee l that there is no current emergent medical condition that warrants admission, transfer, or further emergency department treatment at this time. Records Reviewed Nursing notes. Laboratory Evaluation Results None Radiology and EKG Evaluation Imaging Results None ED Diagnoses Final diagnoses Abscess of axilla, left Abscess of axilla, right Disposition: ED Disposition Orders Discharge Condition at discharge: Stable Follow-up Information Follow up With Details Comments Contact Info WANDA Cary Schedule an appointment as soon as possible for a visit in 2 days [address] [facility] [address] [facility] Emergency Department in [place] As needed if symptoms worsen [address] [facility] [address] Discharge Medications: New Prescriptions SULFAMETHOXAZOLE-TRIMETHOPRIM (BACTRIM DS,SEPTRA DS) 800-160 MG PER TABLET Take 1 table t by mouth 2 (two) times daily. WANDA Blanchard 05/05/142134 Ruchi Unger MD - 05/05/2014 9:17 PM PDT ED Provider Notes by Med Huntley MD at 05/05/142116 Author: Med Huntley MD Service: (none) Author Type: Physician Filed: 05/06/14200 Date of Service: 05/05/142116 Status: Signed Diesel Dragline Operator: Med Huntley MD (Physician) Related Notes: Related Note by WANDA Blanchard (Nurse Practitioner) filed at 05/05/14 21 35 I have discussed the patient with the midlevel provider and we have discussed and agreed on the patient's treatment. I have read and agree with the mid-level provider's documentation. Med Huntley MD 05/06/14200 documented in t his encounter Plan of Treatment Not on filedocumented as of this encounter Visit Diagnoses + + | Diagnosis | + + | Abscess of axilla, left Cellulitis and abscess of upper arm and forearm | + + | Abscess of axilla, right Cellulitis and abscess of upper arm and forearm | + + documented in this encounter [...]
--- OUTSIDE RECORDS SUMMARY | ~2020-06-05 | XMS | Encounter Summary ---
Demographics + + + | Address | [address] | | | [place] [address] | + + + | Home Phone [...] | Organization | [facility] | | | and [...] Team Providers + +------+ + | Care Key Account Director Name | Role | Phone | + +------+ + | Jerome Young MD | PCP | | + +------+ + Encounter Details +--------+ + + + + | Date | Type | Department | Care Team | Description | +--------+ + + + + | 03/02/ | [facility] | [facility] | Lili Miles DO | Chest pain, | | 2017 - | Encounter | [facility] | [address] | unspecified type; | | | | CARE FLOOR [address] | [place] [address] | Wheezing; Elevated | | 03/04/ | [address] | [phone] | blood pressure; | | 2017 | | [place], [place] | | Cough; Obesity, | | | | [address] | | unspecified | | | | [phone] | | | +--------+ + + + [...] + + + | Blood Pressure | 136/84 | 03/04/2017 3:28 PM | | | | | PDT | | + + + + + | Pulse | 75 | 03/04/2017 3:28 PM | | | | | PDT | | + + + + + | Temperature | 37 C (98.6 F) | 03/04/2017 3:28 PM | | | | | PDT | | + + + + + | Respiratory Rate | 18 | 03/04/2017 3:28 PM | | | | | PDT | | + + + + + | Oxygen Saturation | - | - | | + + + + + | Inhaled Oxygen | - | - | | | Concentration | | | | + + + + + | Weight | 95.9 kg (211 lb 6.7 | 03/04/2017 3:28 PM | | | | oz) | PDT | | + + + + + | Height | 175.3 cm (5' 9") | 03/04/2017 3:28 PM | | | | | PDT | | + + + + + | Body Mass Index | 31.22 | 03/04/2017 3:28 PM | | | | | PDT | | + + + + + documented in this encounter Discharge Summaries Allison Grubbs MD - 03/04/2017 5:33 PM PDTFormatting of this note might be different f rom the original. Discharge Summaries by Allison Grubbs MD at 03/04/17 1738 Author: Allison Grubbs MD Service: Hospitalist Author Type: Physician Filed: 03/07/172010 Date of Service: 03/04/171732 Status: Signed Community Arts Worker: Allison Grubbs MD (Physician) [facility] Service: Hospitalist Discharge Summary Date of Admission: 03/02/2017 Date of Discharge: 03/04/2017 Discharge Provider: Allison Grubbs MD Treatment Team: Consulting Physician: Abrahan Crowley MD Admitting Provider: Lili Miles DO Discharge Diagnoses: Principal Problem: Precordial pain Active Problems: COPD exacerbation (HCC) HIV (human immunodeficiency virus infection) (HCC) Cough Cellulitis of left finger Diarrhea of presumed infectious origin Resolved Problems: * No resolved hospital problems. * Procedures: * No surgery found * Chief Complaint: Chest Pain Hospital Course: Slava Anderson is a 51 y.o. male with significant past medical history of COPD,HIV, hyperlip idemia, cholelithiasis, arthritis and neurosyphilis who presents with chest pain associate d with cough for 5 days prior to admission, CT angio is negative for PE or infiltrate, seri al troponin and Stress test were negative, ECHO is normal , blood culture is negative. joy film array show rhino/entero virus, was consulted, advised outpatient follow up. Patient was initially on Levaquin that was stopped. Patient hadLeft hand 3 finger recent trauma and surgery at [facility]. He had Xray that is ne gative for osteomyelitis or infection, it is not tender and he will follow outpatient to rem ove sutures. HIV (human immunodeficiency virus infection), Viral load and CD 4 is pending to be followe d by Dr. Alvarez. COPD exacerbation, will continue bronchodilators after discharge. Outstanding Issues: Discharge Exam and Data: Vital Signs: BP 136/84 mmHg | Pulse 75 | Temp(Src) 98.6 F (37 C) (Oral) | Resp 18 | Ht 1.753 m (5' 9 ") | Wt 95.9 kg (211 lb 6.7 oz) | BMI 31.21 kg/m2 | SpO2 95% Physical Examination: Constitutional: Alert and oriented to person, place, and time. Appears well-developed and w ell-nourished. Cardiovascular: Normal rate, regular rhythm, normal heart [...] and no guarding. Musculoskeletal: Normal range of motion.exhibits no tenderness. exhibits no edema. Neurological: Alert and oriented to person, place, and time. Has normal reflexes. display s normal reflexes. No cranial nerve deficit. Exhibits normal muscle tone. Coordination norm al. Skin: Skin is warm. No pallor. Psychiatric: Has a normal mood and affect. Behavior is normal. Judgment normal. Labs: Recent Labs Lab 03/04/1743103/03/1745703/02/172124 WBC 4.96 4.92 5.93 HGB 13.9 13.3 14.3 HCT 40.6 38.2* 41.4 PLT 216 213 231 NEUTOPHILPCT -- -- 38.73 MONOPCT -- -- 6.13 Recent Labs Lab 03/04/172 03/03/1745703/02/172124 NA 139 138 138 K 4.1 4.1 4.3 CL 110* 107 104 CO2 25 25 27 BUN 16 18 20 CREATININE 0.8 0.7 0.91 PROT -- -- 8.8* BILITOT -- -- 0.2 ALT -- -- 27 AST -- -- 23 Invalid input(s): LABALBU Recent Labs Lab 03/03/17457 MG 2.1 No results for input(s): AMYLASE in the last 168 hours. No results for input(s): PHART, PO2ART, FMA8MWR, D9VFSWXU, BEART in the last 168 hours. Recent Labs Lab 03/02/172124 APTT 29 INR 1.0 Recent Labs Lab 03/03/17 0458 03/03/17 0108 03/02/172124 CKTOTAL 106 114 141 TROPONINI <0.020 <0.020 -- CKMBINDEX 1.9 2.0 1.9 Significant Diagnostic Studies: Xr Chest Pa And Lateral 03/02/2017 HISTORY: 51 years old Male, chest pain, shortness of breath TECHNIQUE: Frontal a nd lateral computer enhanced radiographic examination of the chest, 02 March 2017. Prior [facility] for comparison -- 25 July 2015 FINDINGS: Mediastinum -- unremarkable. Some vascular calcification. Lung markings are somewhat coarse. Similar to the prior examination however No focal infiltrate or evidence of advanced pulmonary venous hypertension. Lung volumes are symmetric and stable. Degenerative change the spine and shoulders with anterior osteophytosi s and multilevel disc space narrowing. 03/02/2017 1. No evidence of acute or new disease -- although chronic and senescent appear ing changes are noted as above which could contribute to some symptoms. Electronically paul d by Jason Seay MD on 03/02/2017 9:57 PM Nm Myocardial Perfusion Spect (stress And Rest) 03/04/2017 SLAVA ANDERSON NM MYOCARDIAL PERFUSION SPECT - STRESS AND REST 03/04/2017 HISTORY: Chest pain. TECHNIQUE: The patient was given 8.8 mCi of Tc 99m Cardiolite at rest and that was followed by a resting cardiac SPECT study. On the same day the patient was stressed usin g 0.4 mg Lexiscan IV under the direction of the mid level provider. At peak stress they wer e given 43.1 mCi of Tc 99m Cardiolite and that was followed by cardiac SPECT imaging. FINDIN GS: No prior comparison. The estimate of left ventricular ejection fraction is 58% at stress and 54% with rest. There are mildly reduced counts in the inferior wall at stress and rest but normalize on prone stress scans, consistent with attenuation artifact. No suspicious rev ersible defects are identified to suggest ischemia. 03/04/2017 1. No evidence of ischemia with pharmacologic stress. Risk stratification may b e performed from the criteria below (1). Note that this should be interfaced with clinical a nd other data, potentially affecting final categorization. 1. [place] [employer] an d [place] [employer] Scientific Statement. Circulation (2008); 118: p 6077-2273 Selection Text Definition Low Risk 1.Normal or small myocardial perfusion defect at rest or with stress.* 2. No change of resting wall motion abnormalities during stress* . * Although the published data are limited, patients with these findings will probably not be at low ri sk in the presence of either a high-risk treadmill score or severe resting left ventricular dysfunction (LVEF <35%). Low risk equates with a less than 1% annual mortality rate. Interme diate Risk 1. Mild/moderate resting left ventricular dysfunction (LVEF=35% to 49%). 2. Str ess-induced moderate perfusion defect without LV dilation or increased lung intake Intermedi ate risk equates with a 1%-3% annual mortality rate. High Risk 1. Severe resting left ventr icular dysfunction (exercise LVEF <35%) 2. Severe exercise left ventricular dysfunction (ex ercise LVEF <35%) 3. Stress-induced large perfusion defect (particularly if anterior) 4. S tress-induced multiple perfusion defects of moderate size 5. Large, fixed perfusion defect with LV dilation 6. Stress-induced moderate perfusion defect with LV dilation High risk equ ates with a greater than 3% annual mortality rate. X-ray Finger Left 2+ Views 03/03/2017 HISTORY: Foreign body left finger. COMPARISON: None. TECHNIQUE: AP left hand wit h oblique and lateral films of the left third digit. FINDINGS: Amputation of the distal soft tissues of the left third digit, and tuft of the left third distal phalanx. The nail has be en truncated, deformed. There is faint oval-shaped density ulnar to the bony amputation tone uring 2 x 1 mm, probably representing tiny bone fragment. No other opaque foreign bodies are seen. Mild osteoarthritic degenerative change of the DIP joints and left first MCP joint of the left hand, with moderate left first IP, left first CMC joint osteoarthritic degenerativ e change. 03/03/2017 1. Amputation of the tuft and distal soft tissues of the left third distal phal anx, probably with small chronic smooth bone fragment ulnar to the amputation site. 2. No o ther opaque foreign bodies. 3. Osteoarthritic degenerative change. Ct Chest Pe Protocol 03/03/2017 EXAM: CT ANGIOGRAM CHEST EXAM DATE: 03/03/2017 12:32 AM. CLINICAL HISTORY: Chest pain. COMPARISON: 03/02/2017. TECHNIQUE: Routine helical imaging was performed through the c hest in the pulmonary arterial phase. IV Contrast: 62 mL of Isovue 370. Reconstructions: Cor onal 3D MIP reconstructions.Sagittal and coronal. In accordance with CT protocol optimizatio n, one or more of the following dose reduction techniques were utilized for this exam: autom ated exposure control, adjustment of mA and/or KV based on patient size, or use of iterative reconstructive technique. FINDINGS: Pulmonary Arteries: Diagnostic quality: Adequate throug h the segmental arteries. No evidence for acute or chronic pulmonary emboli. RV/LV is within normal limits. There is no interventricular septal bowing. There is no reflux of contrast m aterial in the IVC. Lungs/Pleura: No consolidation, nodules, or edema. No effusions or pneum othorax. Mediastinum: Normal. No cardiac enlargement or adenopathy. Thoracic Aorta: Unremark able. Upper Abdomen: Small hiatal hernia. Other: No osteoblastic or lytic lesions. Diffuse d egenerative disk disease throughout the thoracic spine. 03/03/2017 1. No acute pulmonary process. 2. Normal pulmonary CT angiogram. No pulmonary em boli. RADIA Electronically signed by Isabel Cristina MD on Mar 03 2017 1:09AM Referring Provider Line: [phone] ID: [id number] Echo Cardiac Adult Complete 03/04/2017 Patient Name: SLAVA ANDERSON Date of : 1965 Per forming Physician: Hans Lee MD INDICATIONS CHEST PAIN, HX COPD/HIV CONCLUSIONS 1. Overall l eft ventricular systolic function is normal with, an EF between 55 - 60 %. 2. The diastolic filling pattern is normal for the age of the patient. 3. There is no evidence of pulmonary h ypertension. FINDINGS -------- ECG rhythm: Sinus rhythm. Study: A 2-dimensional transthoraci c echocardiogram with m-mode, spectral and color flow Doppler was perfomed. Study: This was a technically adequate study. Left Ventricle: Overall left ventricular systolic function is normal with, an EF between 55 - 60 %. Left Ventricle: The left ventricle cavity size is norm al. Left Ventricle: Left ventricular wall thickness is normal. Left Ventricle: No regional w all motion abnormalities. Left Ventricle: The diastolic filling pattern is normal for the ag e of the patient. Right Ventricle: The RV is normal in size and function. Left Atrium: The l eft atrium is normal in size. Right Atrium: The right atrium is normal in size. Aortic Valve : The aortic valve is trileaflet, and appears anatomically normal. No aortic stenosis or reg urgitation. Mitral Valve: There is trace mitral regurgitation. Mitral Valve: Mild thickening of the mitral valve leaflets. Tricuspid Valve: The tricuspid valve appears structurally nor mal. Tricuspid Valve: Mild tricuspid regurgitation present. Tricuspid Valve: There is no corey dence of pulmonary hypertension. Tricuspid Valve: The right ventricular systolic pressure (p ulmonary artery systolic pressure), as measured by Doppler, is 29.74mmHg. Pulmonic Valve: Th e pulmonic valve was not well visualized. Pulmonic Valve: Trace pulmonic regurgitation. Per icardium: There is no pericardial effusion. IVC/Hepatic Veins: The IVC is normal size (1.5-2 .5cm) and collapses >50% with sniff, consistent with central venous pressures of 5-10mmHg. A mack: The aortic root, ascending aorta sizes are normal. MEASUREMENTS Ao asc: 2.73 cm Ao sinus: 3.[address] junct: 2.51 cm IVC: 1.68 cm LA Major: 4.69 cm EDV( Teich): 78.97 ml IVSd: 0.85 cm LVIDd: 4.20 cm LVPWd: 1.00 cm LVOT Diam: 2.17 cm %F S: 26.73 % EF(Teich): 52.59 % ESV(Teich): 37.43 ml IVSs: 1.14 cm LVIDs: 3.08 cm LV PWs: 1.12 cm SV(Teich): 41.53 ml RA Major: 4.75 cm RVIDd: 3.31 cm LAESV(A-L): 30.7 7 ml LAESV Index (A-L): 14.51 ml/m2 LAAs A2C: 12.51 cm2 LAESV A-L A2C: 31.09 ml LALs A 2C: 4.27 cm LAAs A4C: 12.38 cm2 LAESV A-L A4C: 29.65 ml LALs A4C: 4.39 cm Ao Diam: 3.76 cm AV Cusp: 2.11 cm LA Diam: 2.82 cm LA/Ao: 0.75 %FS: 30.08 % EDV(Teich): 78 .79 ml EF(Teich): 57.72 % ESV(Teich): 33.31 ml IVSd: 0.75 cm IVSs: 1.02 cm LVIDd: 4.20 cm LVIDs: 2.94 cm LVPWd: 0.88 cm LVPWs: 1.23 cm SV(Teich): 45.48 ml TAPSE: 1. 36 cm IVC diameter: 2.14 cm IVC collapse: 0.73 cm IVC % collapse: 63.81 % HR: 61.05 BPM AV maxP.03 mmHg AV meanP.94 mmHg AV Vmax: 1.22 m/s AV Vmean: 0.95 m/s AV VTI: 26.97 cm FRANCY Vmax: 2.73 cm2 FRANCY (VTI): 2.68 cm2 AVAI Vmax: 0.00 cm2/m2 AVAI (V TI): 0.00 cm2/m2 LVCI Dopp: 2.15 l/minm2 LVCO Dopp: 4.56 l/min HR: 63.05 BPM LVOT ma xP.24 mmHg LVOT meanP.77 mmHg LVSI Dopp: 34.17 ml/m2 LVSV Dopp: 72.45 ml LVO T Vmax: 0.90 m/s LVOT Vmean: 0.63 m/s LVOT VTI: 19.43 cm MCO: 432.52 ms MV A Simone: 0.70 m/s MV DecT: 116.90 ms MV E Simone: 1.00 m/s MV E/A Ratio: 1.42 MV PHT: 47.99 ms M VA By PHT: 4.58 cm2 MV A Dur: 114.18 ms Septal e': 0.07 m/s Septal E/e': 13.96 Later al e': 0.12 m/s Lateral E/e': 7.80 P Vein A: 0.24 m/s P Vein A Dur: 96.88 ms P Vein D: 0.33 m/s P Vein S/D Ratio: 0.90 P Vein S: 0.30 m/s RAP: 5 mmHg RV S': 0.10 m/s RVSP: 29.73 mmHg TR maxP.73 mmHg TR Vmax: 2.48 m/s TV A Simone: 0.45 m/s TV Dec Sl ope: 2.98 m/s2 TV Dec Time: 180.49 ms TV E Simone: 0.53 m/s TV E/A Ratio: 1.19 Sonograp her: KVW Authenticated by: Hans Lee MD Report Date/Time: -- [id number] 03/04/2017 1. Overall left ventricular systolic function is normal with, an EF between 55 - 60 %. 2. The diastolic filling pattern is normal for the age of the patient. 3. There is no evidence of pulmonary hypertension. Discharge Information: Follow up: Akin Matthews NP [address] [facility] [address] Follow up in 2 week(s) Abrahan Crowley MD [address] [facility] [address] Schedule an appointment as soon as possible for a visit in 1 week(s) Medication List START taking these medications benzonatate 100 MG capsule QTY: 20 capsule Refills: 0 Commonly known as: TESSALON Take 1 capsule by mouth 3 (three) times daily as needed for Cough. CONTINUE taking these medications albuterol 108 (90 Base) MCG/ACT inhaler QTY: 1 Inhaler Refills: 1 Commonly known as: PROVENTIL HFA;VENTOLIN HFA Inhale 2 puffs into the lungs every 4 (four) hours as needed for Wheezing. HYDROcodone-acetaminophen 5-325 MG per tablet QTY: 10 tablet Refills: 0 Commonly known as: NORCO Take 1-2 tablets by mouth every 6 (six) hours as needed for Pain. nystatin 113577 UNIT/ML suspension Refills: 0 Commonly known as: MYCOSTATIN STRIBILD [phone] MG Tabs Refills: 0 Generic drug: Typmvob-Rmkyj-Bfurklsm-TenofDF sulfamethoxazole-trimethoprim 800-160 MG per tablet Refills: 0 Commonly known as: BACTRIM DS STOP taking these medications cephALEXin 500 MG capsule Commonly known as: KEFLEX Where to Get Your Medications These medications were sent to [address] [address] Hours: 24-hours - albuterol 108 (90 Base) MCG/ACT inhaler - benzonatate 100 MG capsule Disposition: Home Condition: Stable. Code Status: Prior Discharge took 35 minutes, to include final examination, discussion of admission, and prepa ration of prescriptions, instructions for on-going care, follow-up and documentation of disc harge summary. Allison Grubbs MD 7:54 PM 03/07/2017 documented in this encounter Medications at Time [...] Progress Notes Conversion Transaction, Provider Unknown - 03/04/2017 6:33 PM PDTFormatting of this note m ight be different from the original. Nurse Progress Note by Frank Cisse RN at 03/04/171832 Author: Frank Cisse RN Service: (none) Author Type: Registered Nurse Filed: 03/04/171834 Date of Service: 03/04/171832 Status: Signed Community Arts Worker: Frank Cisse RN (Registered Nurse) Discharge medications reviewed with patient with understanding verbalized to staff. Patient to discharge once ride arrives. onver brett Transaction, Provider Unknown - 03/03/2017 10:58 PM PDT Nurse Progress Note by Lauren Herron RN at 03/03/172257 Author: Lauren Herron RN Service: (none) Author Type: Registered Nurse Filed: 03/03/172258 Date of Service: 03/03/172257 Status: Signed Community Arts Worker: Lauren Herron RN (Registered Nurse) 24 hour chart check complete. Lauren Herron RN 03/03/172257 onver brett Transaction, Provider Unknown - 03/03/2017 2:24 PM PDT Case Management by Elaine Stevenson RN at 03/03/171423 Author: Elaine Stevenson RN Service: (none) Author Type: Registered Nurse Filed: 03/03/171423 Date of Service: 03/03/171423 Status: Signed Community Arts Worker: Elaine Stevenson RN (Registered Nurse) provided patient with HIV/AID resources. Elaine Stevenson onver brett Transaction, Provider Unknown - 03/03/2017 9:58 AM PDT Case Management by Elaine Stevenson RN at 03/03/1758 Author: Elaine Stevenson RN Service: (none) Author Type: Registered Nurse Filed: 03/03/17 1005 Date of Service: 03/03/17957 Status: Addendum Community Arts Worker: Elaine Stevenson RN (Registered Nurse) Related Notes: Original Note by Elaine Stevenson RN (Registered Nurse) filed at 03/03/17 1001 03/03/17 0956 Discharge Planning Evaluation Admitting Diagnosis Cough Living Arrangements Alone Support Systems Friends/neighbors Type of Residence Private residence House type Apartment Elevator available Yes Bathrooms on 1st Floor 1-Full Independent with ADL's Yes Independent with Mobility Yes Home Care Services No Caregiver after Discharge No Mental Status Oriented Prior functional status Independent Anticipated Discharge Plan Post Acute Care Needs None at this time Plan communicated to patient/family Yes Resources Financial concerns No Transportation issues No Patient/Family concerns No Prescription Plan Yes Name of Pharmacy [facility] on [address] [place] [address] Previous home health equipment No Vascular access device No Ostomy/Drains/Appliances No Anticipated Disposition Facility Type Home Met with patient and discussed discharge planning, Pt is a 51 y.o., male admitted with ches t pain. He lives alone in an apartment in [place]. No family in the area; he has a friend Rosendo vinson who helps with transportation for appointments, grocery shopping, etc as patient has no dr clifford's license currently. He doesn't use [employer] currently and denies any needs at this time. Friend Serge will drive home upon d/c. Patient's PCP is: Akin Matthews Patient's insurance: [employer] Medicaid Coverage concerns: no Medication coverage/concerns: no Rx Bedside Delivery: *YES* Community resources utilized / needed: no Assistance in transportation: no Identification of any specific education / training: no Barriers to Discharge / Alternative housing needed: none Anticipated DCP: home; CM will follow for any needs. Elaine Stevenson [phone] onver brett Marquez Provider Unknown - 03/03/2017 8:48 AM PDT Progress Notes by Valentina Stallworth RN at 03/03/1748 Author: Valentina Stallworth RN Service: (none) Author Type: Registered Nurse Filed: 03/03/17 0849 Date of Service: 03/03/17847 Status: Signed Community Arts Worker: Valentina Stallworth RN (Registered Nurse) Patient taken down for stress test. Valentina Stallworth RN 8:48 AM onver brett Transaction, Provider Unknown - 03/03/2017 1:21 AM PDT Progress Notes by Harpal Corado RPH at 03/03/17 0121 Author: Harpal Corado RPH Service: (none) Author Type: Pharmacist Filed: 03/03/17120 Date of Service: 03/03/17120 Status: Signed Community Arts Worker: Harpal Corado RPH (Pharmacist) Note ccl 111.3ml/min meds reviewed Pharmacy will follow rdc 0120 docume nted in this encounter H&P Notes Lili Miles DO - 03/02/2017 11:41 PM PDTFormatting of this note might be different from t he original. H&P by Lili Miles DO at 03/02/17 234 Author: Lili Miles DO Service: Hospitalist Author Type: Physician Filed: 03/03/17 0028 Date of Service: 03/02/172340 Status: Signed Community Arts Worker: Lili Miles DO (Physician) [facility] Service: Hospitalist Admission History & Physical Date of Admission: 03/02/2017 Reason for Admission: Chest pain History Obtained From: patient CHIEF COMPLAINT: Chief Complaint Patient presents with Chest Pain "I have HIV and I feel like an elephant is sitting on my chest and I'm out of breath" HISTORY OF PRESENT ILLNESS The patient is a 51 y.o. male with significant past medical history of COPD,HIV, hyperlipid emia, cholelithiasis, arthritis, neurosyphilis and other comorbid conditions who presents wi th chest pain associated with cough. Onset was 5 days ago, with worsening course since that time. The patient describes the pain as intermittent, pressure and sharp in nature, does not radiate. Patient rates pain as a 7/10 in intensity. Associated symptoms are near-syncope a nd productive plegm greenish. Aggravating factors are coughing. Alleviating factors are: ni troglycerin 1 tablets. Patient's cardiac risk factors are dyslipidemia, male gender, sedenta ry lifestyle and smoking/ tobacco exposure. Patient's risk factors for DVT/PE: none. Previo us cardiac testing: none. Patient reports subjective fever and diarrhea since initiating Kef alexandre and Bactrin. He denies any diaphoresis, chills, N/V, dysuria, blood in the urine or stoo l, HERNADEZ, dizziness, O2 use at home. Reports compliance with his medications sees Dr Johnson. On prophylactic Bactrim and Keflex for 3 finger left hand infection. Smoke 1/2 ppd and does no t drink any alcohol. Diarrhea x 6 in the last 24 hours ED findings: Left hand third finger tenderness, glucose 103, white blood cell 5.93 ED treatment: aspirin, nitro SL (caused hypotension) and duonebs REVIEW OF SYSTEMS As above, a total of 12 systems reviewed, o/w unremarkable Past Medical History Diagnosis Date HIV (human immunodeficiency virus infection) ([facility]) Muscle spasms of neck Hyperlipidemia Cholelithiasis COPD (chronic obstructive pulmonary disease) ([facility]) Chronic mastoiditis Multiple joint pain 05/14/2013 Other chronic pain Neurosyphilis in male Blurred vision, bilateral Unspecified visual disturbance Past Surgical History Procedure Laterality Date Tonsillectomy Fistula repair Tympanoplasty Spine surgery Ercp N/A 05/24/2015 Procedure: ENDOSCOPIC RETROGRADE CHOLANGIOPANCREATOGRAPHY; Surgeon: Jin Arango MD; Lo cation: [facility]; Service: Gastroenterology; Laterality: N/A; Finger amputation Left middle finger amputated tip No Known Allergies Prior to Admission medications Medication Sig Start Date End Date Taking? Authorizing Provider albuterol (PROVENTIL HFA;VENTOLIN HFA) 108 (90 Base) MCG/ACT inhaler Inhale 2 puffs into th e lungs every 4 (four) hours as needed for Wheezing. Yes Historical Provider cephALEXin (KEFLEX) 500 MG capsule Take 500 mg by mouth 3 (three) times daily. Indications: Skin and Soft Tissue Infection Yes Historical Provider Esibofz-Ggborkr-Faoucuny-Tenof (STRIBILD) [phone] MG TABS Take by mouth. Yes His torical Provider nystatin (MYCOSTATIN) 625459 UNIT/ML suspension Take 500,000 Units by mouth 3 (three) times daily. Indications: Candidiasis Fungal Infection of the Oropharynx Yes Historical Provide r sulfamethoxazole-trimethoprim (BACTRIM DS) 800-160 MG per tablet Take 1 tablet by mouth judy ly. Yes Historical Provider HYDROcodone-acetaminophen (NORCO) 5-325 MG per tablet Take 1-2 tablets by mouth every 6 (si x) hours as needed for Pain. 07/25/15 08/04/15 WANDA Marshall fluticasone (FLOVENT HFA) 220 MCG/ACT inhaler Inhale 1 puff into the lungs 2 (two) times da laverne. 03/02/17 Historical Provider VENTOLIN HFA 108 (90 BASE) MCG/ACT inhaler inhale 2 puffs by mouth INTO THE LUNGS every 4 h ours if needed for wheezing or shortness of breath 12/15/14 03/02/17 WANDA Cary Social History Social History Marital Status: Single Spouse Name: N/A Number of Children: 0 Years of Education: N/A Social History Main Topics Smoking status: Current Every Day Smoker -- 1.00 packs/day for 30 years Types: Cigarettes Smokeless tobacco: Never Used Alcohol Use: No Drug Use: Yes Special: Marijuana Comment: medical card Sexual Activity: Partners: Male Control/ Protection: Condom Other Topics Concern None Social History Narrative Local resident , full code, no falls. Family History Problem Relation Age of Onset Other (see comments) Mother adopted Other (see comments) Father adopted PHYSICAL EXAM BP 121/77 mmHg | Pulse 88 | Temp(Src) 97.3 F (36.3 C) | Resp 18 | Ht 1.753 m (5' 9") | Wt 96 kg (211 lb 10.3 oz) | BMI 31.24 kg/m2 | SpO2 97% General Appearance: A & O x 3, no distress, appears stated age. Continue Head: Normocephalic, without obvious abnormality, atraumatic Eyes: PERRL, conjunctiva/corneas clear, EOM's intact. Ears: Normal external ear canals, no otorrhea Nose: Nares normal, no drainage or sinus tenderness Throat: Lips, mucosa, and tongue normal; gums normal Neck: Supple, symmetrical, trachea; no carotid bruit or JVD Back: Symmetric, no curvature, ROM normal, no CVA tenderness Lungs: Clear to auscultation bilaterally, respirations unlabored Chest Wall: No tenderness or deformity Heart: Regular rate and rhythm, S1 and S2 normal, no murmur, rub or gallop Abdomen: Soft, non-tender, bowel sounds active all four quadrants, no masses, no organo megaly Genitalia: Deferred Rectal: Deferred Extremities: Upper extremities no clubbing/ cyanosis/ erythema Lower extremities atraum atic, no cyanosis or edema. Left hand 3 finger partially amputated erythematosus and tender to palpation Pulses: 2+ and symmetric all extremities Skin: Skin warm, texture and turgor normal, no rashes or lesions Lymph nodes: No gross lymphadenopathy. Neurologic: Psychiatric: CNII-XII intact, normal strength, sensation normal Affect/ mood normal, behavior and judgement normal DATA Results for orders placed or performed during the hospital encounter of 03/02/17 (from the past 24 hour(s)) Cardiac Panel Collection Time: 03/02/17 9:25 PM Result Value Ref Range WBC 5.93 3.80 - 11.00 K/uL RBC 4.79 4.20 - 5.70 M/uL HGB 14.3 13.2 - 17.0 g/dL HCT 41.4 39.0 - 50.0 % MCV 86.5 80.0 - 100.0 fl MCH 29.8 27.0 - 34.0 pg MCHC 34.4 32.0 - 35.5 g/dL RDW SD 43.8 37 - 53 fl PLT 231 150 - 400 K/uL MPV 7.8 fl DIFF TYPE AUTOMATED NEUTROPHILS 38.73 % LYMPHOCYTES 43.25 % MONOCYTES 6.13 % EOSINOPHILS 11.20 % BASOPHILS 0.69 % NEUTROPHILS ABS 2.30 1.90 - 7.40 K/uL LYMPHOCYTES ABS 2.57 1.00 - 3.90 K/uL MONOCYTES ABS 0.36 0.00 - 0.80 K/uL EOSINOPHILS ABS 0.67 (H) 0.00 - 0.50 K/uL BASOPHILS ABS 0.04 0.00 - 0.10 K/uL SODIUM 138 135 - 145 mmol/L POTASSIUM 4.3 3.5 - 4.9 mmol/L CHLORIDE 104 99 - 109 mmol/L CO2 27 23 - 32 mmol/L ANION GAP AGAP 11 5 - 20 mmol/L GLUCOSE 103 (H) 65 - 99 mg/dL BUN 20 8 - 25 mg/dL CREATININE 0.91 0.70 - 1.30 mg/dL BUN/CREAT 23 CALCIUM 8.6 8.5 - 10.5 mg/dL TOTAL PROTEIN 8.8 (H) 6.3 - 8.2 g/dL Albumin 3.5 (L) 3.6 - 5.0 g/dL GLOBULIN 5.3 (H) 1.3 - 4.9 g/dL A/G 0.7 (L) 1.0 - 2.4 TBIL 0.2 0.1 - 1.5 mg/dL ALK PHOS 96 35 - 115 U/L AST 23 10 - 45 U/L ALT 27 10 - 65 U/L EGFR >60 >60 mL/min/1.73m2 CPK 141 55 - 400 U/L INR 1.0 APTT 29 23 - 32 seconds MMB 2.7 0.5 - 3.6 ng/mL CK-MB Index 1.9 Lactic acid Collection Time: 03/02/17 9:25 PM Result Value Ref Range LACTIC ACID 1.2 0.4 - 2.0 mmol/L D Dimer,Quantitative Collection Time: 03/02/17 9:25 PM Result Value Ref Range D DIMER, QUANTITATIVE 0.64 (H) 0.19 - 0.50 mg/L FEU POC cardiac troponin Collection Time: 03/02/17 9:33 PM Result Value Ref Range POC CARDIAC TROPONIN 0.00 0.00 - 0.10 ng/mL ED INFORMATION EXCHANGE Collection Time: 03/02/17 11:19 PM Result Value Ref Range AMITA PRC AMITA CARE PLAN Results Procedure Component Value Units Date/Time Blood Culture Set 2 [[id number]] Collected: 03/02/172241 Specimen Information: Blood from Blood Updated: 03/02/172255 Blood Culture Set 1 [[id number]] Collected: 03/02/172124 Specimen Information: Blood from Blood Updated: 03/02/172154 Xr Chest Pa And Lateral 03/02/2017 1. No evidence of acute or new disease -- although chronic and senescent appear ing changes are noted as above which could contribute to some symptoms. Electronically paul d by Jason Seay MD on 03/02/2017 9:57 PM EKG: Normal sinus rhythm, ventricular rate 91, no ST or T-wave abnormalities. QTC 442. ASSESSMENT & PLAN Principal Problem: Precordial pain: -?Atypical but patient has risk factors. -Aspirin, Beta rusty if tolerated. -Cardiac Enzymes x 3 with troponin every 6 hours if negative will do Stress test -Lipid profile. Active Problems: Cough: -Unclear etiology viral vs CAP -Film array -CTA PE protocol order in the ED for Possible PE -Will start Levaquin -Order sputum and blood cultures, legionella and pneumoniae urinary antigens Left hand 3 finger: -Recent past trauma, now infected, being treated with Keflex -X-ray ordered to check osteomyelitis Diarrhea: -Since initiation of Keflex -Check c diff and stool HIV (human immunodeficiency virus infection) ([facility]): -Continue home medication -Sees Dr Johnson COPD exacerbation ([facility]): -Not in exacerbation but acute cough -Scheduled Nebs -PRN O2. GI and deep vein thrombosis prophylaxis Primary Care Physician: Akin MILES DO 03/03/2017 12:17 AM documented in this enco unter Procedure Notes Manav Bennett ARNP - 03/04/2017 1:44 PM PDTFormatting of this note might be different fr om the original. Procedures by WANDA Ching at 03/04/17 9133 Author: WANDA Ching Service: Radiology Author Type: Advanced Registered Nurse Kori parker Filed: 03/04/17 7614 Date of Service: 03/04/171343 Status: Signed Community Arts Worker: WANDA Ching (Camryn Registered Nurse [place]) Pre-procedure Diagnoses: 1. SOB (shortness of breath) [R06.02] Post-procedure Diagnoses: 1. SOB (shortness of breath) [R06.02] Procedures: 1. NM MYOCARDIAL PERFUSION SPECT - STRESS AND REST [JGG736 (Custom)] [facility] Service: Diagnostic Imaging/Nuclear Medicine Cardiac Stress Test Note Type of Stress Test performed (protocol): Pharmacologic stress test Wolfgang protocol time (if applicable): N/A Rhythm changes: None Ectopy: None Symptoms experienced during exam: None ST/T wave changes: ST depression upsloping Medications administered: Lexiscan 0.4 mg Fernandez Treadmill Score: N/A Comments: None Manav Grigsby ARN P - 03/03/2017 9:35 AM PDT Procedures by WANAD Ching at 03/03/17 0935 Author: WANDA Ching Service: Radiology Author Type: Advanced Registered Nurse Kori parker Filed: 03/03/17 0945 Date of Service: 03/03/17934 Status: Signed Community Arts Worker: WANDA Ching (Advanced Registered Nurse Practitioner) Pre-procedure Diagnoses: 1. Other chest pain [R07.89] Post-procedure Diagnoses: 1. Other chest pain [R07.89] Procedures: 1. NM TREADMILL STRESS NO IMAGING [[id number] (Custom)] [facility] Service: Diagnostic Imaging/Nuclear Medicine Cardiac Stress Test Note Type of Stress Test performed (protocol): Exercise stress test, Wolfgang protocol, treadmill o nly Wolfgang protocol time (if applicable): 48 seconds Rhythm changes: None Ectopy: None Symptoms experienced during exam: Dyspnea, weakness ST/T wave changes: None Medications administered: None Fernandez Treadmill Score: 0, intermediate risk Comments: None documented in this encounter Consult Notes Abrahan Waldrop MD - 03/03/2017 8:19 PM PDT Consults by Abrahan Crowley MD at 03/03/172018 Author: Abrahan Crowley MD Service: Infectious Disease Author Type: Physician Filed: 03/03/172030 Date of Service: 03/03/172018 Status: Signed Community Arts Worker: Abrahan Crowley MD (Physician) Consult Orders: 1. Inpatient consult to Infectious Diseases [[id number]] ordered by Jose G Henderson MD at 1131 [facility] Service: Infectious Diseases Initial Consult Note Date of Admission: 03/02/2017 Requesting Physician: Jose G Henderson MD, General Medicine REASON FOR CONSULT Evaluate HIV and antibiotic recommendations CHIEF COMPLAINT Cough and chest pain HISTORY OF PRESENT ILLNESS The patient is a 51 y.o.-year-old male with significant PMH of HIV, non compliance, on and off ART, last seen in Clinic this month for his HIV follow up. His ART was resumed approx 2 months ago. He was supposed to be on Bactrim prophylaxis as well but he did not take it. Patient had coronavirus URI diagnosed in December of this year. He presented now to the ER with chest pain and cough of approx 1 week duration. He was advi sed to come in by his friends. Denies fever or chills, denies sputum production. His cough w as dry. No new medications recently. He has also been dealing with a finger "cellulitis". He was on cephalexin before. He states he has been on cephalexin for a month. He had a traumatic fracture of distal phalanx. Most recent x-rays Amputation of the tuft and distal soft tissues of the left third distal phalanx. He was evaluated with troponin in the ER which was negative. Vital signs were otherwise sta ble. His CT of the chest was completely unremarkable, and so were his labs. He is going for a stress test tomorrow. He had a respiratory PCR panel which showed rhinovirus/enterovirus. Infectious Disease (ID) consult requested for further evaluation and management. Past Medical History Diagnosis Date HIV (human immunodeficiency virus infection) ([facility]) Muscle spasms of neck Hyperlipidemia Cholelithiasis COPD (chronic obstructive pulmonary disease) ([facility]) Chronic mastoiditis Multiple joint pain 05/14/2013 Other chronic pain Neurosyphilis in male Blurred vision, bilateral Unspecified visual disturbance Past Surgical History Procedure Laterality Date Tonsillectomy Fistula repair Tympanoplasty Spine surgery Ercp N/A 05/24/2015 Procedure: ENDOSCOPIC RETROGRADE CHOLANGIOPANCREATOGRAPHY; Surgeon: Jin Arango MD; Lo cation: [facility]; Service: Gastroenterology; Laterality: N/A; Finger amputation Left middle finger amputated tip Social History Social History Marital Status: Single Spouse [...] Mother adopted Other (see comments) Father adopted Current Facility-Administered Medications Medication Dose Route Frequency Provider Last Rate Last Dose acetaminophen (TYLENOL) tablet 650 mg 650 mg Oral Q6H PRN Lili Hercl, DO Or acetaminophen (TYLENOL) suppository 650 mg 650 mg Rectal Q6H PRN Lili Hercl, DO albuterol (PROVENTIL HFA;VENTOLIN HFA) inhaler 2 puff Inhalation Q4H PRN Lili Hercl, DO aspirin tablet 325 mg 325 mg Oral Daily with breakfast Lili Hercl, DO 325 mg at 0950 budesonide-formoterol (SYMBICORT) 160-4.5 MCG/ACT inhaler 2 puff 2 puff Inhalation 2 t imes daily Jose G Henderson MD 2 puff at 03/03/17 1208 cephALEXin (KEFLEX) capsule 500 mg 500 mg Oral TID Lili Hercl, DO 500 mg at 7 1535 Wonrgcc-Yvnjr-Yvtgkoso-TenofDF [phone] MG TABS 1 tablet 1 tablet Oral Daily Gr miles Hercl, DO 1 tablet at 03/03/17 0952 enoxaparin (LOVENOX) injection 40 mg 40 mg Subcutaneous Q24H Lili Hercl, DO ipratropium-albuterol (DUO-NEB) 0.5-2.5 mg/3mL nebulizer solution 3 mL 3 mL Nebulizati on Q4H WA Jose G Henderson MD 3 mL at 03/03/17 1511 metoprolol (LOPRESSOR) tablet 25 mg 25 mg Oral BID Lili Hercl, DO 25 mg at 03/03/17 1208 nitroGLYCERIN (NITROSTAT) SL tablet 0.4 mg 0.4 mg Sublingual Q5 Min PRN Lili Hercl, D O ondansetron (ZOFRAN) tablet 4 mg 4 mg Oral Q6H PRN Lili Hercl, DO Or ondansetron (ZOFRAN) injection 4 mg 4 mg Intravenous Q6H PRN Lili Hercl, DO phosphorus (K PHOS NEUTRAL) tablet 500 mg 500 mg Oral PRN Jose G Henderson MD Or sodium phosphate 20 mmol in sodium chloride (IV) 0.9 % 100 mL IVPB 20 mmol Intravenous PRN Jose G Henderson MD 20 mmol at 03/03/17 1028 Or sodium phosphate 45 mmol in sodium chloride (IV) 0.9 % 100 mL IVPB 45 mmol Intravenous PRN Jose G Henderson MD polyethylene glycol (GLYCOLAX) packet 17 g 17 g Oral Daily PRN Lili Hercl, DO sodium chloride (PF) 0.9 % flush 10 mL 10 mL Intravenous Q8H Lili Hercl, DO 10 mL a t 03/03/17 0953 sodium chloride 0.9 % infusion Intravenous Continuous Jose G Henderson MD 75 mL/hr at 02/09 02/24 1339 sulfamethoxazole-trimethoprim (BACTRIM DS) 800-160 MG per tablet 1 tablet 1 tablet Ora l Daily Lili Hercl, DO 1 tablet at 03/03/17 0950 zolpidem (AMBIEN) tablet 5 mg 5 mg Oral Nightly PRN Lili Hercl, DO No Known Allergies REVIEW OF SYSTEMS A comprehensive review of systems was negative except for those in the HPI. EXPOSURES/IMMUNIZATIONS: None recently. PHYSICAL EXAM Vital Signs: BP 137/76 mmHg | Pulse 78 | Temp(Src) 97.6 F (36.4 C) (Oral) | Resp 20 | Ht 1.753 m (5' 9") | Wt 96.4 kg (212 lb 8.4 oz) | BMI 31.37 kg/m2 | SpO2 97% Temp (24hrs), Av F (36.7 C), Min:97.3 F (36.3 C), Max:98.9 F (37.2 C) General Appearance: Alert, cooperative, no distress Head: Normocephalic, without obvious abnormality, atraumatic. Lips, mucosa, and tongue normal; dentition normal; no thrush present. Eyes: PERRL, conjunctiva/corneas clear, EOM's intact. Throat: Oropharynx without exudates. Neck: Supple, symmetrical, trachea midline, no adenopathy; thyroid: no enlargement/tenderness/nodules; no carotid bruit or JVD Back: Symmetric, no curvature, ROM normal, no CVA tenderness Lungs: Clear to auscultation bilaterally, respirations unlabored Chest Wall: Mid chest tenderness to palpation. Heart: Regular rate and rhythm, S1 and S2 normal, no murmur, rub or gallop Abdomen: Soft, non-tender, bowel sounds active all four quadrants, no masses, no organomegaly Extremities: Extremities normal, atraumatic, no cyanosis or edema Pulses: 2+ and symmetric all extremities Skin: Skin color, texture, turgor normal, no rashes or lesions Lymph nodes: Cervical, supraclavicular, and axillary nodes normal Neurologic: Alert and oriented to time, place and person. CNII-XII intact, normal strengt h, sensation and reflexes throughout. No focal neurological deficits Venous access: PIV No signs of infection. REVIEW OF LABS: All labs reviewed. CBC: Lab Results Component Value Date WBC 4.92 03/03/2017 RBC 4.47 03/03/2017 HGB 13.3 03/03/2017 HCT 38.2* 03/03/2017 MCV 85.5 03/03/2017 MCH 29.8 03/03/2017 MCHC 34.9 03/03/2017 RDW 42.9 03/03/2017 PLT 213 03/03/2017 MPV 8.4 03/03/2017 DIFFTYPE MANUAL 03/03/2017 CMP: Lab Results Component Value Date NA 138 03/03/2017 K 4.1 03/03/2017 CL 107 03/03/2017 CO2 25 03/03/2017 ANIONGAP 10 03/03/2017 GLUF 105* 03/03/2017 BUN 18 03/03/2017 CREATININE 0.7 03/03/2017 BCR 26 03/03/2017 CA 7.9* 03/03/2017 PROT 8.8* 03/02/2017 ALB 3.5* 03/02/2017 GLOB 5.3* 03/02/2017 BILITOT 0.2 03/02/2017 ALP 96 03/02/2017 AST 23 03/02/2017 ALT 27 03/02/2017 EGFR >60 03/03/2017 MICROBIOLOGY Results Procedure Component Value Units Date/Time C Difficile Only [[id number]] Collected: 03/03/172001 Specimen Information: Stool Updated: 03/03/172016 Stool Culture with Shiga Toxin [[id number]] Collected: 03/03/172001 Specimen Information: Stool from Stool Updated: 03/03/172016 Respiratory Filmarray [[id number]] (Abnormal) Collected: 03/03/17 0030 Specimen Information: Nares(Nose) Updated: 03/03/17 0432 ADENOVIRUS Not Detected CORONAVIRUS 229E Not Detected CORONAVIRUS HKU1 Not Detected CORONAVIRUS NL63 Not Detected CORONAVIRUS OC43 Not Detected HUMAN METAPNEUMOVIRUS Not Detected HUMAN RHINO/ENTERO DETECTED (A) INFLUENZA A Not Detected INFLUENZA B Not Detected PARAINFLUENZA 1 Not Detected PARAINFLUENZA 2 Not Detected PARAINFLUENZA 3 Not Detected PARAINFLUENZA 4 Not Detected RESP SYNCYTIAL VIRUS Not Detected BORDETELLA PERTUSSIS Not Detected CHLAMYDIAE PNEUMONIAE Not Detected MYCOPLASMA PNEUMONIAE Not Detected RESP PANEL INTERP Testing performed by Molecular Methodology Blood Culture Set 2 [[id number]] Collected: 03/02/172241 Specimen Information: Blood from Blood Updated: 03/03/1733 Blood Culture Set 1 [[id number]] Collected: 03/02/172124 Specimen Information: Blood from Blood Updated: 03/03/1733 IMAGING Reviewed images of CT chest My interpretation: No acute process, no lung infiltrates. PROBLEM LIST Principal Problem: Precordial pain Active Problems: COPD exacerbation (HCC) HIV (human immunodeficiency virus infection) (HCC) Cough Cellulitis of left finger Diarrhea of presumed infectious origin ASSESSMENT AND RECOMMENDATIONS The patient is a 51 y.o.-year-old male with the following problems 1. URI 2. Cough sec to 1 3. Chest pain likely costochondritis vs. atypical cardiac 4. Finger trauma: No signs of soft tissue infection, x-rays no evidence of osteomyelitis. Stop cephalexin. 5. Diarrhea associated with antibiotics: Check C diff. No antibiotics recommended at this time. Continue HIV therapy with Stribild. Will repeat his VL today as he did not complete his labs as outpatient. CD4 as well. Please call if condition changes or results indicate infection. Otherwise, will see in clin ic. Thank you for this consultation. Abrahan Crowley MD 03/03/2017 8:19 PM docutiffanie booth in this encounter ED Notes Gonzalez Farris DO - 03/02/2017 9:19 PM PDT ED Provider Notes by Gonzalez Farris DO at 03/02/172118 Author: Gonzalez Farris DO Service: Emergency Department Author Type: Physician Filed: 03/03/17 0135 Date of Service: 03/02/172118 Status: Signed Community Arts Worker: Gonzalez Farris DO (Physician) [facility] Department of Emergency Medicine 9:19 PM History of Present Illness Patient Identification Slava Anderson is a 51 y.o. male. Patient information was obtained from patient. History/Exam limitations: none. Patient presented to the Emergency Department by: Car Chief Complaint Chief Complaint Patient presents with Chest Pain "I have HIV and I feel like an elephant is sitting on my chest and I'm out of breath" The patient presents to ED with complaints of chest pain. Onset of symptoms was 5 days ago, with a constant course since that time. The symptoms are described to be of mild severity. The patient describes the quality and location of the symptoms as the following: "feels like an elephant is on my chest." Nothing makes the patient's symptoms better. Exacerbation ma kes the patient's symptoms worse. The patient also complains of cough, chills, diarrhea, and diaphoresis. Patient denies nausea, vomiting, fever, leg pain, sore throat. 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 Patient is HIV positive and was off his medication until about a month and half ago. His PCP put him on Bactrim to prevent pneumonia. He is also taking Keflex for a finger injur y that occurred over a month and a half ago. Patient was seen at [facility] for leg swelling a nd redness and was told it is due to poor circulation. The patient has no other complaints a t this time. PCP: Akin Matthews Past Medical History Diagnosis Date HIV (human immunodeficiency virus infection) ([facility]) Muscle spasms of neck Hyperlipidemia Cholelithiasis COPD (chronic obstructive pulmonary disease) ([facility]) Chronic mastoiditis Multiple joint pain 05/14/2013 Other chronic pain Neurosyphilis in male Blurred vision, bilateral Unspecified visual disturbance Past Surgical History Procedure Laterality Date Tonsillectomy Fistula repair Tympanoplasty Spine surgery Ercp N/A 05/24/2015 Procedure: ENDOSCOPIC RETROGRADE CHOLANGIOPANCREATOGRAPHY; Surgeon: Jin Arango MD; Lo cation: [facility]; Service: Gastroenterology; Laterality: N/A; Finger amputation Left middle finger amputated tip Prior to Admission medications Medication Sig Start Date End Date Taking? Authorizing Provider Wtlyank-Byombbl-Uhgblmsx-Tenof (STRIBILD) [phone] MG TABS Take by mouth. Histor ical Provider fluticasone (FLOVENT HFA) 220 MCG/ACT inhaler Inhale 1 puff into the lungs 2 (two) times da laverne. Historical Provider HYDROcodone-acetaminophen (NORCO) 5-325 MG per tablet Take 1-2 tablets by mouth every 6 (si x) hours as needed for Pain. 07/25/15 08/04/15 WANDA Marshall VENTOLIN HFA 108 (90 BASE) MCG/ACT inhaler inhale 2 puffs by mouth INTO THE LUNGS every 4 h ours if needed for wheezing or shortness of breath 12/15/14 WANDA Cary No Known Allergies Social History Social History Marital Status: Single Spouse [...] comments) Father adopted Review of Systems Constitutional: Positive for chills and diaphoresis Negative for fever Eyes: Negative for vision changes Nose: Negative for congestion, nosebleeds Throat: Negative for sore throat CV/Resp: Positive for chest pain and cough Negative for ltgjnzrzy-by-unyyvi GI: Positive for diarrhea Negative for abdominal pain, nausea, vomiting : Negative for urinary problems Musculoskeletal: Negative for back pain, joint pain Skin: Negative for rash Neuro/Psych: Negative for headache Endo/heme/Lymph: Negative for swollen lymph nodes, easy bruising All other systems reviewed and negative except as noted. Physical Exam BP 136/88 mmHg | Pulse 96 | Temp(Src) 97.3 F (36.3 C) | Resp 20 | Ht 1.753 m (5' 9") | Wt 96 kg (211 lb 10.3 oz) | BMI 31.24 kg/m2 | SpO2 98% Vital signs interpretation: Elevated blood pressure, otherwise WNL Pulse Oximetry interpretation: Normal General: Alert, in no apparent distress Eyes: Normal inspection, pupils equal and round, non-icteric ENT: Ears normal Nose normal Pharynx normal Neck: Normal inspection Supple Cardiovascular: Rate and rhythm normal No murmurs Respiratory: Breath sounds normal bilaterally No rales or rhonchi Faint wheezes in bilateral lungs Abdomen: Soft, non-tender, non-distended No guarding or rebound Extremities: Left finger partial amputation distally Genitourinary: Deferred Rectal exam: Deferred Back: Normal inspection Skin: Piercing of right nipple Chronic skin changes bilateral lower extremities Warm and dry No rash Neuro: Alert, no AMS No gross motor/sensory deficits Medical Decision Making and Emergency Department Course ED Department Course Patient presents to ED with complaints of chest pain. On exam the patient has faint wheezes bilaterally. My DDx includes, but is not limited to: pneumonia, viral illness, possible car diac but unlikely due to five day course. Will order lab work, XR chest, and reevaluate the patient. 9:59 PM XR is negative for acute or new disease. Will wait for labs. 10:19 PM Labs reviewed. Troponin is negative. Other lab work is unremarkable. Will continu e to treat symptomatically. 11:11 PM Patient reassessed. Patient is feeling better but is still experiencing some press ure, especially with exertion. Will consult hospitalist. 11:17 PM Discussed patient's case with Dr. Rdz, hospitalist, who accepted patient for adm ission. Will order d-dimer as Dr. Rdz requested one to rule out PE. 11:57 PM D-dimer is slightly elevated. Will order CT chest. 1:[address] chest is negative for PE. No acute pulmonary process noted. Patient care has bee n transferred to hospitalist service. Medications albuterol (PROVENTIL HFA;VENTOLIN HFA) inhaler (not administered) cephALEXin (KEFLEX) capsule 500 mg (not administered) sulfamethoxazole-trimethoprim (BACTRIM DS) 800-160 MG per tablet 1 tablet (not administered ) aspirin tablet 325 mg (not administered) metoprolol (LOPRESSOR) tablet 25 mg (not administered) nitroGLYCERIN (NITROSTAT) SL tablet 0.4 mg (not administered) acetaminophen (TYLENOL) tablet 650 mg (not administered) Or acetaminophen (TYLENOL) suppository 650 mg (not administered) ondansetron (ZOFRAN) tablet 4 mg (not administered) Or ondansetron (ZOFRAN) injection 4 mg (not administered) zolpidem (AMBIEN) tablet 5 mg (not administered) polyethylene glycol (GLYCOLAX) packet 17 g (not administered) sodium chloride (PF) 0.9 % flush 10 mL (not administered) enoxaparin (LOVENOX) injection 40 mg (not administered) Zdqlhzw-Ioaaa-Rkmmkqcq-TenofDF [phone] MG TABS 1 tablet (not administered) albuterol (PROVENTIL) nebulizer solution 2.5 mg (not administered) sodium chloride 0.9 % infusion (not administered) aspirin chewable tablet 324 mg (324 mg Oral Given 03/02/172210) ipratropium-albuterol (DUO-NEB) 0.5-2.5 mg/3mL nebulizer solution 3 mL (3 mLs Nebulization Given 03/02/172217) sodium chloride (bolus) 0.9 % 1,000 mL (1,000 mLs Intravenous New Bag 03/03/17 0005) iopamidol (ISOVUE-370) 76 % injection 100 mL (62 mLs Intravenous Given 03/03/17 0027) Filed Vitals: 03/02/17 2317 03/03/17 0002 03/03/17 0059 03/03/17 0114 BP: 115/60 121/77 121/79 Pulse: 92 88 93 Temp: 97.4 F (36.3 C) TempSrc: Oral Resp: 18 20 Height: 1.753 m (5' 9") Weight: 96.4 kg (212 lb 8.4 oz) SpO2: 96% 97% 96% Records Reviewed Old medical records. Nursing notes. History includes liver disease, hyperlipidemia, HIV, and pancreatitis. No prior stress test or heart catheters on file. Laboratory Evaluation Results Procedure Component Value Ref Range Date/Time Blood Culture Set 2 [[id number]] Collected: 03/02/172241 Order Status: Sent Specimen Information: Blood from Blood Updated: 03/03/1733 Blood Culture Set 1 [[id number]] Collected: 03/02/172124 Order Status: Sent Specimen Information: Blood from Blood Updated: 03/03/1733 D Dimer,Quantitative [[id number]] (Abnormal) Collected: 03/02/172124 Order Status: Completed Updated: 03/02/172346 D DIMER, QUANTITATIVE 0.64 (H) 0.19 - 0.50 mg/L FEU Lactic acid [[id number]] Collected: 03/02/172124 Order Status: Completed Specimen Information: Blood Updated: 03/02/172217 LACTIC ACID 1.2 0.4 - 2.0 mmol/L Cardiac Panel [[id number]] (Abnormal) Collected: 03/02/172124 Order Status: Completed Updated: 03/02/172206 WBC 5.93 3.80 - 11.00 K/uL RBC 4.79 4.20 - 5.70 M/uL HGB 14.3 13.2 - 17.0 g/dL HCT 41.4 39.0 - 50.0 % MCV 86.5 80.0 - 100.0 fl MCH 29.8 27.0 - 34.0 pg MCHC 34.4 32.0 - 35.5 g/dL RDW SD 43.8 37 - 53 fl PLT 231 150 - 400 K/uL MPV 7.8 fl DIFF TYPE AUTOMATED NEUTROPHILS 38.73 % LYMPHOCYTES 43.25 % MONOCYTES 6.13 % EOSINOPHILS 11.20 % BASOPHILS 0.69 % NEUTROPHILS ABS 2.30 1.90 - 7.40 K/uL LYMPHOCYTES ABS 2.57 1.00 - 3.90 K/uL MONOCYTES ABS 0.36 0.00 - 0.80 K/uL EOSINOPHILS ABS 0.67 (H) 0.00 - 0.50 K/uL BASOPHILS ABS 0.04 0.00 - 0.10 K/uL SODIUM 138 135 - 145 mmol/L POTASSIUM 4.3 3.5 - 4.9 mmol/L CHLORIDE 104 99 - 109 mmol/L CO2 27 23 - 32 mmol/L ANION GAP AGAP 11 5 - 20 mmol/L GLUCOSE 103 (H) 65 - 99 mg/dL BUN 20 8 - 25 mg/dL CREATININE 0.91 0.70 - 1.30 mg/dL BUN/CREAT 23 CALCIUM 8.6 8.5 - 10.5 mg/dL TOTAL PROTEIN 8.8 (H) 6.3 - 8.2 g/dL Albumin 3.5 (L) 3.6 - 5.0 g/dL GLOBULIN 5.3 (H) 1.3 - 4.9 g/dL A/G 0.7 (L) 1.0 - 2.4 TBIL 0.2 0.1 - 1.5 mg/dL ALK PHOS 96 35 - 115 U/L AST 23 10 - 45 U/L ALT 27 10 - 65 U/L EGFR >60 >60 mL/min/1.73m2 CPK 141 55 - 400 U/L INR 1.0 APTT 29 23 - 32 seconds MMB 2.7 0.5 - 3.6 ng/mL CK-MB Index 1.9 POC cardiac troponin [[id number]] Collected: 03/02/172132 Order Status: Completed Updated: 03/02/172146 POC CARDIAC TROPONIN 0.00 0.00 - 0.10 ng/mL I personally reviewed the lab results and they have been posted to the chart. Pertinent po sitive and negative findings have been addressed appropriately. Radiology and EKG Evaluation EKG at 2120 Normal sinus rhythm with rate of 91 CT interval 150 QTC [address] changes Unchanged from prior on 05/22/15. Interpreted by me, Gonzalez Farris DO, at time of clinical encounter. Imaging Results CT Chest PE Protocol (Final result) Result time: 03/03/17 01:09:58 Final result by Rad Results In [facility] (03/03/17 01:09:58) Impression: 1. No acute pulmonary process. 2. Normal pulmonary CT angiogram. No pulmonary emboli. RADIA Electronically signed by Isabel Cristina MD on Mar 03 2017 1:09AM Referring Provider Amaya ne: [phone] ID: [id number] Narrative: EXAM: CT ANGIOGRAM CHEST EXAM DATE: 03/03/2017 12:32 AM. CLINICAL HISTORY: Chest pain. COMPARISON: 03/02/2017. TECHNIQUE: Routine helical imaging was performed through the chest in the pulmonary arteria l phase. IV Contrast: 62 mL of Isovue 370. Reconstructions: Coronal 3D MIP reconstructions.S agittal and coronal. In accordance with CT protocol optimization, one or more of the following dose reduction te chniques were utilized for this exam: automated exposure control, adjustment of mA and/or KV based on patient size, or use of iterative reconstructive technique. FINDINGS: Pulmonary Arteries: Diagnostic quality: Adequate through the segmental arteries. No evidence for acute or chron ic pulmonary emboli. RV/LV is within normal limits. There is no interventricular septal bowing. There is no refl ux of contrast material in the IVC. Lungs/Pleura: No consolidation, nodules, or edema. No effusions or pneumothorax. Mediastinum: Normal. No cardiac enlargement or adenopathy. Thoracic Aorta: Unremarkable. Upper Abdomen: Small hiatal hernia. Other: No osteoblastic or lytic lesions. Diffuse degenerative disk disease throughout the t horacic spine. Preliminary result by Rad Results In [facility] (03/03/17 01:02:06) Impression: 1. No acute pulmonary process. 2. Normal pulmonary CT angiogram. No pulmonary emboli. RADIA Read by Isabel Cristina MD on Mar 03 2017 1:02AM XR chest PA and lateral (Final result) Result time: 03/02/17 21:57:29 Final result by Rad Results In [facility] (03/02/17 21:57:29) Impression: 1. No evidence of acute or new disease -- although chronic and senescent appearing changes are noted as above which could contribute to some symptoms. Narrative: HISTORY: 51 years old Male, chest pain, shortness of breath TECHNIQUE: Frontal and lateral computer enhanced radiographic examination of the chest, 02 March 2017. Prior study for comparison -- 25 July 2015 FINDINGS: Mediastinum -- unremarkable. Some vascular calcification. Lung markings are somewhat coarse. Similar to the prior examination however No focal infilt rate or evidence of advanced pulmonary venous hypertension. Lung volumes are symmetric and s table. Degenerative change the spine and shoulders with anterior osteophytosis and multilevel disc space narrowing. ED Diagnoses Final diagnoses Chest pain, unspecified type Wheezing Elevated blood pressure Disposition: ED Disposition Admit/Observation Bed request special needs: None Diagnosis?: chest pain Procedures Additional Documentation Procedures Attending Note: Documentation assistance provided by Steff Weaver (Alfa). Information recorded by the careyibe has been reviewed and validated by me. I rosa williamson with its contents. Signed by: Alfa Bonilla 03/02/2017, 1:29 AM DO Gonzalez Jeter DO 03/03/17 0135 documented in th is encounter Miscellaneous Notes Miscellaneous - Conversion Transaction, Provider Unknown - 03/04/2017 5:35 PM PDTFormattin g of this note might be different from the original. Discharge Instr - Activity by Frank Cisse RN at 03/04/171734 Author: Frank Cisse RN Service: (none) Author Type: Registered Nurse Filed: 03/04/171734 Date of Service: 03/04/171734 Status: Written Community Arts Worker: Frank Cisse RN (Registered Nurse) No restrictions iscel laneous - Conversion Transaction, Provider Unknown - 03/04/2017 5:35 PM PDTFormatting of th is note might be different from the original. Discharge Instr - Diet by Frank Cisse RN at 03/04/171734 Author: Frank Cisse RN Service: (none) Author Type: Registered Nurse Filed: 03/04/171734 Date of Service: 03/04/171734 Status: Written Community Arts Worker: Frank Cisse RN (Registered Nurse) Resume previous diet lan o f Care - Conversion Transaction, Provider Unknown - 03/03/2017 10:17 PM PDTFormatting of thi s note might be different from the original. Plan of Care by Lauren Herron RN at 03/03/172216 Author: Lauren Herron RN Service: (none) Author Type: Registered Nurse Filed: 03/03/172216 Date of Service: 03/03/172216 Status: Signed Community Arts Worker: Lauren Herron RN (Registered Nurse) Daily Care Daily care needs are met Progressing Discharge Barriers Patient's discharge needs are met Progressing Pain Patient's pain/discomfort is manageable Progressing Psychosocial Needs Demonstrates ability to cope with hospitalization/illness Progressing Collaborate with patient/family/caregiver to identify patient specific goals for this h ospitalization Progressing Safety Patient will be injury free during hospitalization Progressing lan o f Care - Jose G Henderson MD - 03/03/2017 1:40 PM PDT Plan of Care by Jose G Henderson MD at 03/03/17 2610 Author: Jose G Henderson MD Service: Hospitalist Author Type: Physician Filed: 04/24/17 1540 Date of Service: 03/03/17 1340 Status: Addendum Community Arts Worker: Jose G Henderson MD (Physician) Related Notes: Original Note by Jose G Henderson MD (Physician) filed at 03/03/17 2968 Patient seen and examined,he denies SOB or chest pressure no radiation,he could not tolerat e wolfgang protocol stress test as he exercised less than one minute,all his cardiac enzymes ar e negative,i noted resp film array show rhino/entero virus,also he reports loose stool,had a negative PE study,will order nuclear stress test to complete work up of chest pain,ECHO is pending ,i have d/w and consulted his ID and he will see patient for further recc. Results for [facility] ANDERSON ( ) as of 03/03/2017 13:40 Ref. Range 03/03/2017 00:30 CHLAMYDIAE PNEUMONIAE Latest Ref Range: Not Detected Not Detected CORONAVIRUS 229E Latest Ref Range: Not Detected Not Detected CORONAVIRUS HKU1 Latest Ref Range: Not Detected Not Detected CORONAVIRUS NL63 Latest Ref Range: Not Detected Not Detected CORONAVIRUS OC43 Latest Ref Range: Not Detected Not Detected HUMAN METAPNEUMOVIRUS Latest Ref Range: Not Detected Not Detected HUMAN RHINO/ENTERO Latest Ref Range: Not Detected DETECTED (A) MYCOPLASMA PNEUMONIAE Latest Ref Range: Not Detected Not Detected PARAINFLUENZA 1 Latest Ref Range: Not Detected Not Detected PARAINFLUENZA 2 Latest Ref Range: Not Detected Not Detected PARAINFLUENZA 3 Latest Ref Range: Not Detected Not Detected PARAINFLUENZA 4 Latest Ref Range: Not Detected Not Detected RESP PANEL INTERP Unknown Testing performed... RESP SYNCYTIAL VIRUS Latest Ref Range: Not Detected Not Detected Lab Results Component Value Date CKTOTAL 106 03/03/2017 CKMB 2.0 03/03/2017 CKMBINDEX 1.9 03/03/2017 TROPONINI <0.020 03/03/2017 Lab Results Component Value Date WBC 4.92 03/03/2017 HGB 13.3 03/03/2017 HCT 38.2* 03/03/2017 MCV 85.5 03/03/2017 PLT 213 03/03/2017 GLUCOSE Date Value Ref Range Status 03/03/2017 105* 65 - 99 mg/dL Final BUN Date Value Ref Range Status 03/03/2017 18 8 - 25 mg/dL Final CREATININE Date Value Ref Range Status 03/03/2017 0.7 0.70 - 1.30 mg/dL Final BUN/CREAT Date Value Ref Range Status 03/03/2017 26 Final TOTAL PROTEIN Date Value Ref Range Status 03/02/2017 8.8* 6.3 - 8.2 g/dL Final GLOBULIN Date Value Ref Range Status 03/02/2017 5.3* 1.3 - 4.9 g/dL Final TBIL Date Value Ref Range Status 03/02/2017 0.2 0.1 - 1.5 mg/dL Final ALT Date Value Ref Range Status 03/02/2017 27 10 - 65 U/L Final AST Date Value Ref Range Status 03/02/2017 23 10 - 45 U/L Final Comment: SLT HEMOLYSIS SODIUM Date Value Ref Range Status 03/03/2017 138 135 - 145 mmol/L Final POTASSIUM Date Value Ref Range Status 03/03/2017 4.1 3.5 - 4.9 mmol/L Final CHLORIDE Date Value Ref Range Status 03/03/2017 107 99 - 109 mmol/L Final CO2 Date Value Ref Range Status 03/03/2017 25 23 - 32 mmol/L Final ANION GAP AGAP Date Value Ref Range Status 03/03/2017 10 5 - 20 mmol/L Final documented in this encou nter Plan of Treatment Not on filedocumented as of this encounter Procedures + +--------+ + + + | Procedure Name | Priori | Date/Time | Associated Diagnosis | Comments | | | ty | | | | + +--------+ + + + | NM MYOCARDIAL | Routin | 03/04/2017 | | Results for this | | PERFUSION MULT SPECT | e | 3:40 PM | | procedure are in the | | | | PDT | | results section. | + +--------+ + + + | EXTERNAL LAB: CBC | Routin | 03/04/2017 | | Results for this | | | e | 4:32 AM | | procedure are in the | | | | PDT | | results section. | + +--------+ + + + | HIV RNA, | Routin | 03/04/2017 | | Results for this | | QUANTITATIVE, PCR | e | 4:32 AM | | procedure are in the | | | | PDT | | results section. | + +--------+ + + + | CD4 T CELL PANEL | Routin | 03/04/2017 | | Results for this | | | e | 4:32 AM | | procedure are in the | | | | PDT | | results section. | + +--------+ + + + | RENAL FUNCTION PANEL | Routin | 03/04/2017 | | Results for this | | | e | 4:32 AM | | procedure are in the | | | | PDT | | results section. | + +--------+ + + + | HISTORICAL | Timed | 03/03/2017 | | Results for this | | MICROBIOLOGY RESULT | | 8:02 PM | | procedure are in the | | | | PDT | | results section. | + +--------+ + + + | DEVIN, STOOL | Timed | 03/03/2017 | | Results for this | | | | 8:02 PM | | procedure are in the | | | | PDT | | results section. | + +--------+ + + + | ECHO COMPLETE | Routin | 03/03/2017 | | Results for this | | | e | 2:35 PM | | procedure are in the | | | | PDT | | results section. | + +--------+ + + + | ECG 12 LEAD | Routin | 03/03/2017 | | Results for this | | | e | 6:57 AM | | procedure are in the | | | | PDT | | results section. | + +--------+ + + + | STREPTOCOCCUS | Routin | 03/03/2017 | | Results for this | | PNEUMONIAE AG, URINE | e | 5:35 AM | | procedure are in the | | | | PDT | | results section. | + +--------+ + + + | LEGIONELLA AG, EIA, | Routin | 03/03/2017 | | Results for this | | QUAL, URINE | e | 5:34 AM | | procedure are in the | | | | PDT | | results section. | + +--------+ + + + | EXTERNAL LAB: CBC | Routin | 03/03/2017 | | Results for this | | | e | 4:58 AM | | procedure are in the | | | | PDT | | results section. | + +--------+ + + + | TROPONIN I | Routin | 03/03/2017 | | Results for this | | | e | 4:58 AM | | procedure are in the | | | | PDT | | results section. | + +--------+ + + + | CK-MB | Routin | 03/03/2017 | | Results for this | | | e | 4:58 AM | | procedure are in the | | | | PDT | | results section. | + +--------+ + + + | PHOSPHORUS | Routin | 03/03/2017 | | Results for this | | | e | 4:58 AM | | procedure are in the | | | | PDT | | results section. | + +--------+ + + + | MAGNESIUM | Routin | 03/03/2017 | | Results for this | | | e | 4:58 AM | | procedure are in the | | | | PDT | | results section. | + +--------+ + + + | CK TOTAL | Routin | 03/03/2017 | | Results for this | | | e | 4:58 AM | | procedure are in the | | | | PDT | | results section. | + +--------+ + + + | BASIC METABOLIC | Routin | 03/03/2017 | | Results for this | | PANEL | e | 4:58 AM | | procedure are in the | | | | PDT | | results section. | + +--------+ + + + | TROPONIN I | Routin | 03/03/2017 | | Results for this | | | e | 1:08 AM | | procedure are in the | | | | PDT | | results section. | + +--------+ + + + | CK-MB | Routin | 03/03/2017 | | Results for this | | | e | 1:08 AM | | procedure are in the | | | | PDT | | results section. | + +--------+ + + + | CK TOTAL | Routin | 03/03/2017 | | Results for this | | | e | 1:08 AM | | procedure are in the | | | | PDT | | results section. | + +--------+ + + + | XR FINGER LEFT 2 + | Routin | 03/03/2017 | | Results for this | | VW | e | 12:32 AM | | procedure are in the | | | | PDT | | results section. | + +--------+ + + + | CT ANGIOGRAM | Routin | 03/03/2017 | | Results for this | | PULMONARY | e | 12:31 AM | | procedure are in the | | | | PDT | | results section. | + +--------+ + + + | HISTORICAL | Timed | 03/03/2017 | | Results for this | | MICROBIOLOGY RESULT | | 12:30 AM | | procedure are in the | | | | PDT | | results section. | + +--------+ + + + | CULTURE, BLOOD, 2ND | STAT | 03/02/2017 | | Results for this | | SPECIMEN (NON-ORD) | | 10:42 PM | | procedure are in the | | | | PDT | | results section. | + +--------+ + + + | XR CHEST 2 VIEWS | Routin | 03/02/2017 | | Results for this | | | e | 9:46 PM | | procedure are in the | | | | PDT | | results section. | + +--------+ + + + | HISTORICAL LAB PANEL | Routin | 03/02/2017 | | Results for this | | RESULT | e | 9:25 PM | | procedure are in the | | | | PDT | | results section. | + +--------+ + + + | CULTURE, BLOOD | STAT | 03/02/2017 | | Results for this | | | | 9:25 PM | | procedure are in the | | | | PDT | | results section. | + +--------+ + + + | D-DIMER | Routin | 03/02/2017 | | Results for this | | | e | 9:25 PM | | procedure are in the | | | | PDT | | results section. | + +--------+ + + + | LACTIC ACID | Routin | 03/02/2017 | | Results for this | | | e | 9:25 PM | | procedure are in the | | | | PDT | | results section. | + +--------+ + + + | ECG 12 LEAD | Routin | 03/02/2017 | | Results for this | | | e | 9:20 PM | | procedure are in the | | | | PDT | | results section. | + +--------+ + + + documented in this encounter Results NM Myocardial Perfusion Mult SPECT (03/04/2017 3:40 PM PDT) + + | Specimen | + + | | + + + + + | Impressions | Performed At | + + + | 1. No evidence of ischemia with pharmacologic stress. | | | Risk stratification may be performed from the criteria below (1). | | | Note that this should be interfaced with clinical and other data, | | | potentially affecting final categorization. 1. [employer] | | | Association and [employer] Scientific Statement. | | | Circulation (2008); 118: p 2083-1275 Selection Text | | | Definition Low Risk 1.Normal or small myocardial perfusion | | | defect at rest or with stress.* 2. No change of resting wall | | | motion abnormalities during stress* . * Although the published | | | data are limited, patients with these findings will probably not be at | | | low risk in the presence of either a high-risk treadmill score or | | | severe resting left ventricular dysfunction (LVEF <35%). Low risk | | | equates with a less than 1% annual mortality rate. Intermediate | | | Risk 1. Mild/moderate resting left ventricular dysfunction | | | (LVEF=35% to 49%). 2. Stress-induced moderate perfusion defect | | | without LV dilation or increased lung intake Intermediate risk | | | equates with a 1%-3% annual mortality rate. High Risk 1. | | | Severe resting left ventricular dysfunction (exercise LVEF <35%) | | | 2. Severe exercise left ventricular dysfunction (exercise LVEF <35%) | | | 3. Stress-induced large perfusion defect (particularly if | | | anterior) 4. Stress-induced multiple perfusion defects of | | | moderate size 5. Large, fixed perfusion defect with LV dilation | | | 6. Stress-induced moderate perfusion defect with LV dilation | | | High risk equates with a greater than 3% annual mortality rate. | | | | | | 3:16 PM | | + + + + + + | Narrative | Performed At | + + + | [facility] MYOCARDIAL PERFUSION SPECT - STRESS AND REST | | | 03/04/2017 HISTORY: Chest pain. TECHNIQUE: The patient was | | | given 8.8 mCi of Tc 99m Cardiolite at rest and that was followed by a | | | resting cardiac SPECT study. On the same day the patient was stressed | | | using 0.4 mg Lexiscan IV under the direction of the mid level | | | provider. At peak stress they were given 43.1 mCi of Tc 99m | | | Cardiolite and that was followed by cardiac SPECT imaging. | | | FINDINGS: No prior comparison. The estimate of left ventricular | | | ejection fraction is 58% at stress and 54% with rest. There are mildly | | | reduced counts in the inferior wall at stress and rest but normalize | | | on prone stress scans, consistent with attenuation artifact. No | | | suspicious reversible defects are identified to suggest ischemia. | | + + + + + | Procedure Note | + + | Amaury Arnett Conversion - 06/23/2019 10:51 PM [facility] MYOCARDIAL PERFUSION | | SPECT - STRESS AND REST03/04/2017 HISTORY:Chest pain. TECHNIQUE:The patient was given 8.8 | | mCi of Tc 99m Cardiolite at rest and that was followed by a resting cardiac SPECT | | study. On the same day the patient was stressed using 0.4 mg Lexiscan IV under the | | direction of the mid level provider. At peak stress they were given 43.1 mCi of Tc 99m | | Cardiolite and that was followed by cardiac SPECT imaging. FINDINGS:No prior comparison. | | The estimate of left ventricular ejection fraction is 58% at stress and 54% with rest. | | There are mildly reduced counts in the inferior wall at stress and rest but normalize on | | prone stress scans, consistent with attenuation artifact. No suspicious reversible | | defects are identified to suggest ischemia. IMPRESSION: 1. No evidence of ischemia with | | pharmacologic stress. Risk stratification may be performed from the criteria below | | (1). Note that this should be interfaced with clinical and other data, potentially | | affecting final categorization. 1. [place] [employer] and [place] [employer] | | Cardiology Scientific Statement. Circulation (2008); 118: p 7171-4341 Selection Text | | Definition Low Risk 1.Normal or small myocardial perfusion defect at rest or with | | stress.* 2. No change of resting wall motion abnormalities during stress* . * Although | | the published data are limited, patients with these findings will probably not be at low | | risk in the presence of either a high-risk treadmill score or severe resting left | | ventricular dysfunction (LVEF <35%). Low risk equates with a less than 1% annual | | mortality rate. Intermediate Risk 1. Mild/moderate resting left ventricular | | dysfunction (LVEF=35% to 49%). 2. Stress-induced moderate perfusion defect without LV | | dilation or increased lung intake Intermediate risk equates with a 1%-3% annual | | mortality rate. High Risk 1. Severe resting left ventricular dysfunction (exercise | | LVEF <35%) 2. Severe exercise left ventricular dysfunction (exercise LVEF <35%) 3. | | Stress-induced large perfusion defect (particularly if anterior) 4. Stress-induced | | multiple perfusion defects of moderate size 5. Large, fixed perfusion defect with LV | | dilation 6. Stress-induced moderate perfusion defect with LV dilation High risk equates | | with a greater than 3% annual mortality rate. | |Selection Text Definition | | | |Low Risk | | | |1.Normal or small myocardial perfusion defect at rest or with stress.* | | | |2. No change of resting wall motion abnormalities during stress* . | | | |* Although the published data are limited, patients with these findings will probably not b e at low risk in the presence of either a high-risk treadmill score or severe resting left v entricular dysfunction (LVEF <35%). | | | |Low risk equates with a less than 1% annual mortality rate. | | | | | |Intermediate Risk 1. Mild/moderate resting left ventricular dysfunction (LVEF=35% to 49%). | | | |2. Stress-induced moderate perfusion defect without LV dilation or increased lung intake | | | |Intermediate risk equates with a 1%-3% annual mortality rate. | | | | | |High Risk 1. Severe resting left ventricular dysfunction (exercise LVEF <35%) | | | |2. Severe exercise left ventricular dysfunction (exercise LVEF <35%) | | | |3. Stress-induced large perfusion defect (particularly if anterior) | | | |4. Stress-induced multiple perfusion defects of moderate size | | | |5. Large, fixed perfusion defect with LV dilation | | | |6. Stress-induced moderate perfusion defect with LV dilation | | | |High risk equates with a greater than 3% annual mortality rate. | | | | | | | | | + + HIV RNA, quantitative, PCR (03/04/2017 4:32 AM PDT) + + + + + + | Component | Value | Ref Range | Performed | Pathologist | | | | | At | Signature | + + + + + + | HIV-1 VIRAL | 3.0 (A) | Log copies/mL | EXTERNAL | | | RESULT | | | LAB | | | (REF) | | | | | + + + + + + | HIV-1 VIRAL | 897 (A) | Copies/mL | EXTERNAL | | | LOAD | | | LAB | | | RESULT | | | | | + + [...] CLINICALLY | | | | | | SIGNIFICANT.IF THIS IS A | | | | | | NOTIFIABLE CONDITION IN | | | | | | YOUR STATE, THE | | | | | | PROVIDER,PLEASE ENSURE | | | | | | YOU FOLLOW ALL | | | | | | APPLICABLE LOCAL AND | | | | | | STATE | | | | | | REPORTINGREQUIREMENTS.Te | | | | | | sting performed at [facility], | | | | | | [address], | | | | | | [place] [address] | | | | + + + + + + + + | Specimen | + + | | + + + +---------+ + + | Performing | Address | City/State/Zipcode | Phone Number | | Organization | | | | + +---------+ + + | EXTERNAL LAB | | | | + +---------+ + + CD4 T Cell Panel (03/04/2017 4:32 AM PDT) + + + + + + | Component | Value | Ref Range | Performed | Pathologist | | | | | At | Signature | + + + + + + | Source | BLOODComment: Testing | | EXTERNAL | | | | performed by [facility], | | LAB | | | | [place] [address] | | | | + + + + + + | WBC | 5.2 | 3.8 - 11.0 K/uL | EXTERNAL | | | | | | LAB | | + + + + + + | Lymphocytes | 37.4 | 15.0 - 48.0 % | EXTERNAL | | | Manual | | | LAB | | + + + + + + | Absolute | 1.90 | 1.00 - 3.90 | EXTERNAL | | | Lymphocytes | | K/uL | LAB | | + + + + + + | CD4- | 11.2 (L)Comment: | 30.0 - 65.0 % | EXTERNAL | | | | ===NOTIFICATION | | LAB | | | | REQUIRED, REPORT SENT TO | | | | | | THE STATE | | | | | | HEALTHDEPARTMENT=== | | | | | | | | | | + + + + + + | Absolute | 213 (L)Comment: | 490 - 1400 /uL | EXTERNAL | | | CD4 ([place] | ===NOTIFICATION | | LAB | | | T) Cells | REQUIRED, REPORT SENT TO | | | | | | THE STATE | | | | | | HEALTHDEPARTMENT=== | | | | | | | [...] | | | | | | DETERMINEDBY [facility] | | | | | | [facility] | | | | | | [place]. IT HAS NOT BEEN | | | [...] | | | | | AMENDMENTS OF 1988 | | | | | | ("CLIA") ASQUALIFIED TO | | | | | | PERFORM HIGH COMPLEXITY | | | | | | CLINICAL TESTING.Testing | | | | | | performed at [facility] | | | | | | [facility], | | | | | | [address], [place] | | | | | | [address] | | | | + + + [...] + +---------+ + + External Lab: CBC (03/04/2017 4:32 AM PDT) + + + + + + | Component | Value | Ref Range | Performed | Pathologist | | | | | At | Signature | + + + + + + | WBC | 4.96 | 3.80 - 11.00 | EXTERNAL | [...] + + + + | Hemoglobin | 13.9 | 13.2 - 17.0 | EXTERNAL | | | | | g/dL | LAB | | + + + + + + | Hematocrit, | 40.6 | 39.0 - 50.0 % | EXTERNAL | | | POC | | | LAB | | + + + + + + | MCV | 87.4 | 80.0 - 100.0 fl | EXTERNAL | | | | | | LAB | | + + + + + + | MCH | 29.8 | 27.0 - 34.0 pg | EXTERNAL | | | | | | LAB | | + + + + + + | MCHC | 34.2 | 32.0 - 35.5 | EXTERNAL | | | | | g/dL | LAB | | + + + + + + | RDW-CV | 43.3 | 37 - 53 fl | EXTERNAL | | | | | | LAB | | + + + + + + | Platelet | 216 | 150 - 400 K/uL | EXTERNAL [...] + + + + | Segmented | 43 | % | EXTERNAL | | | Neutrophils | | | LAB | | | Manual | | | | | + + + + + + | Lymphocytes | 43 | % | EXTERNAL | | | Manual | | | LAB | | + + + + + + | Monocytes | 10 | % | EXTERNAL | | | Manual | | | LAB | | + + + + + + | Eosinophils | 4 | % | EXTERNAL | | | Manual | | | LAB | | + + + + + + | Absolute | 2.13 | 1.90 - 7.40 | EXTERNAL | | | Neutrophils | | K/uL | LAB | | + + + + + + | Absolute | 2.13 | 1.00 - 3.90 | EXTERNAL | | | Lymphocytes | | K/uL | LAB | | + + + + + + | Absolute | 0.50 | 0.00 - 0.80 | EXTERNAL | [...] | | | | [facility], [address] [facility] | | | | | | [place] | | | | | | [address] | | | | + + + + + + + + | Specimen | + + | Blood specimen | | (specimen) | + + + +---------+ + + | Performing | Address | City/State/Zipcode | Phone Number | | Organization | | | | + +---------+ + + | EXTERNAL LAB | | | | + +---------+ + + Renal Function Panel (03/04/2017 4:32 AM PDT) + + + + + [...] + + + + | Cl | 110 (H) | 99 - 109 mmol/L | EXTERNAL | | | | | | LAB | | + + + + + + | CO2 | 25 | 23 - 32 mmol/L | EXTERNAL | | | | | | LAB | | + + + + + + | Anion Gap | 8 | 5 - 20 mmol/L | EXTERNAL | | | | | | LAB | | + + + + + + | Glucose, | 102 (H) | 65 - 99 mg/dL | [...] + + + + | PHOSPHORUS | 2.9 | 2.3 - 4.8 mg/dL | EXTERNAL [...] | | | | | | at [facility], [address] | | | | | | [place], | | | | | | [place] [address] | | | | + + + + + + + + | Specimen | + + | | + + + +---------+ + + | Performing | Address | City/State/Zipcode | Phone Number | | Organization | | | | + +---------+ + + | EXTERNAL LAB | | | | + +---------+ + + HISTORICAL MICROBIOLOGY RESULT (03/03/2017 8:02 PM PDT) + + | Specimen | + + | | + + + + + | Narrative | Performed At | + + + | [facility] ANTIGEN NEGATIVE TOXIN A | EXTERNAL LAB | | NEGATIVE C DIFF | | | INTERPRETATION Negative for toxigenic C.difficile. | | | Testing performed at [facility];[address] [place] [address];[place] [address] | | + + + + +---------+ + + | Performing | Address | City/State/Zipcode | Phone Number | | Organization | | | | + +---------+ + + | EXTERNAL LAB | | | | + +---------+ + + Culture, Stool (03/03/2017 8:02 PM PDT) + + | Specimen | + + | Stool specimen | | (specimen) | + + + + + | Narrative | Performed At | + + + | Specimen Description STOOL CULTURE | EXTERNAL LAB | | NEGATIVE FOR SHIGA TOXIN TYPE 1 | | | AND 2. NEGATIVE | | | FOR SALMONELLA, SHIGELLA AND CAMPYLOBACTER | | | IF A YERSINIA OR VIBRIO IS SUSPECTED, | | | PLEASE CONTACT THE MICRO LAB FOR SPECIAL TESTING. | | + + + + +---------+ + + | Performing | Address | City/State/Zipcode | Phone Number | | Organization | | | | + +---------+ + + | EXTERNAL LAB | | | | + +---------+ + + ECHO Complete (03/03/2017 2:35 PM PDT) + + | Specimen | + + | | + + + + + | Impressions | Performed At | + + + | 1. Overall left ventricular systolic function is normal with, an EF | | | between 55 - 60 %. 2. The diastolic filling pattern is normal for the | | | age of the patient. 3. There is no evidence of pulmonary | | | hypertension. | | + + + + + + | Narrative | Performed At | + + + | Patient Name: SLAVA ANDERSON Date of : 1965 | | | Performing Physician: Hans Lee MD | | | | | | INDICATIONS CHEST PAIN, HX COPD/HIV CONCLUSIONS | | | 1. Overall left ventricular systolic function is normal | | | with, an EF between 55 - 60 %. 2. The diastolic filling pattern is | | | normal for the age of the patient. 3. There is no evidence of | | | pulmonary hypertension. FINDINGS -------- ECG rhythm: Sinus | | | rhythm. Study: A 2-dimensional transthoracic echocardiogram with | | | m-mode, spectral and color flow Doppler was perfomed. Study: This was | | | a technically adequate study. Left Ventricle: Overall left | | | ventricular systolic function is normal with, an EF between 55 - 60 %. | | | Left Ventricle: The left ventricle cavity size is normal. Left | | | Ventricle: Left ventricular wall thickness is normal. Left Ventricle: | | | No regional wall motion abnormalities. Left Ventricle: The diastolic | | | filling pattern is normal for the age of the patient. Right | | | Ventricle: The RV is normal in size and function. Left Atrium: The | | | left atrium is normal in size. Right Atrium: The right atrium is | | | normal in size. Aortic Valve: The aortic valve is trileaflet, and | | | appears anatomically normal. No aortic stenosis or regurgitation. | | | Mitral Valve: There is trace mitral regurgitation. Mitral Valve: Mild | | | thickening of the mitral valve leaflets. Tricuspid Valve: The | | | tricuspid valve appears structurally normal. Tricuspid Valve: Mild | | | tricuspid regurgitation present. Tricuspid Valve: There is no | | | evidence of pulmonary hypertension. Tricuspid Valve: The right | | | ventricular systolic pressure (pulmonary artery systolic pressure), as | | | measured by Doppler, is 29.74mmHg. Pulmonic Valve: The pulmonic | | | valve was not well visualized. Pulmonic Valve: Trace pulmonic | | | regurgitation. Pericardium: There is no pericardial effusion. | | | IVC/Hepatic Veins: The IVC is normal size (1.5-2.5cm) and collapses | | | >50% with sniff, consistent with central venous pressures of 5-10mmHg. | | | Aorta: The aortic root, ascending aorta sizes are normal. | | | MEASUREMENTS Ao asc: 2.73 cm Ao sinus: 3.31 cm | | | Ao st junct: 2.51 cm IVC: 1.68 cm LA Major: 4.69 cm | | | EDV(Teich): 78.97 ml IVSd: 0.85 cm LVIDd: 4.20 cm LVPWd: | | | 1.00 cm LVOT Diam: 2.17 cm %FS: 26.73 % EF(Teich): | | | 52.59 % ESV(Teich): 37.43 ml IVSs: 1.14 cm LVIDs: 3.08 cm | | | LVPWs: 1.12 cm SV(Teich): 41.53 ml RA Major: 4.75 cm | | | RVIDd: 3.31 cm LAESV(A-L): 30.77 ml LAESV Index (A-L): | | | 14.51 ml/m2 LAAs A2C: 12.51 cm2 LAESV A-L A2C: 31.09 ml LALs | | | A2C: 4.27 cm LAAs A4C: 12.38 cm2 LAESV A-L A4C: 29.65 ml | | | LALs A4C: 4.39 cm Ao Diam: 3.76 cm AV Cusp: 2.11 cm LA | | | Diam: 2.82 cm LA/Ao: 0.75 %FS: 30.08 % EDV(Teich): | | | 78.79 ml EF(Teich): 57.72 % ESV(Teich): 33.31 ml IVSd: | | | 0.75 cm IVSs: 1.02 cm LVIDd: 4.20 cm LVIDs: 2.94 cm | | | LVPWd: 0.88 cm LVPWs: 1.23 cm SV(Teich): 45.48 ml TAPSE: | | | 1.36 cm IVC diameter: 2.14 cm IVC collapse: 0.73 cm IVC % | | | collapse: 63.81 % HR: 61.05 BPM AV maxP.03 mmHg AV | | | meanP.94 mmHg AV Vmax: 1.22 m/s AV Vmean: 0.95 m/s AV | | | VTI: 26.97 cm FRANCY Vmax: 2.73 cm2 FRANCY (VTI): 2.68 cm2 AVAI | | | Vmax: 0.00 cm2/m2 AVAI (VTI): 0.00 cm2/m2 LVCI Dopp: 2.15 | | | l/minm2 LVCO Dopp: 4.56 l/min HR: 63.05 BPM LVOT maxPG: | | | 3.24 mmHg LVOT meanP.77 mmHg LVSI Dopp: 34.17 ml/m2 LVSV | | | Dopp: 72.45 ml LVOT Vmax: 0.90 m/s LVOT Vmean: 0.63 m/s | | | LVOT VTI: 19.43 cm MCO: 432.52 ms MV A Simone: 0.70 m/s MV | | | DecT: 116.90 ms MV E Simone: 1.00 m/s MV E/A Ratio: 1.42 MV | | | PHT: 47.99 ms MVA By PHT: 4.58 cm2 MV A Dur: 114.18 ms | | | Septal e': 0.07 m/s Septal E/e': 13.96 Lateral e': 0.12 m/s | | | Lateral E/e': 7.80 P Vein A: 0.24 m/s P Vein A Dur: 96.88 | | | ms P Vein D: 0.33 m/s P Vein S/D Ratio: 0.90 P Vein S: | | | 0.30 m/s RAP: 5 mmHg RV S': 0.10 m/s RVSP: 29.73 mmHg TR | | | maxP.73 mmHg TR Vmax: 2.48 m/s TV A Simone: 0.45 m/s TV | | | Dec Evans: 2.98 m/s2 TV Dec Time: 180.49 ms TV E Simone: 0.53 | | | m/s TV E/A Ratio: 1.19 Respite Coordinator: BHAKTI Authenticated by: | | | Hans Lee MD Report Date/Time: -- [id number] | | + + + + + | Procedure Note | + + | Amaury Arnett Conversion - 06/23/2019 10:51 PM PDT Patient Name: Abisai ANDERSON of | | : 1965 Performing Physician: Hans Lee | | INDICATIONS C | | HEST PAIN, HX COPD/HIV CONCLUSIONS 1. Overall left ventricular systolic | | function is normal with, an EF between 55 - 60 %.2. The diastolic filling pattern is | | normal for the age of the patient.3. There is no evidence of pulmonary hypertension. | | FINDINGS--------ECG rhythm: Sinus rhythm.Study: A 2-dimensional transthoracic | | echocardiogram with m-mode, spectral and color flow Doppler was perfomed.Study: This was | | a technically adequate study.Left Ventricle: Overall left ventricular systolic function | | is normal with, an EF between 55 - 60 %.Left Ventricle: The left ventricle cavity size | | is normal.Left Ventricle: Left ventricular wall thickness is normal.Left Ventricle: No | | regional wall motion abnormalities.Left Ventricle: The diastolic filling pattern is | | normal for the age of the patient.Right Ventricle: The RV is normal in size and | | function.Left Atrium: The left atrium is normal in size.Right Atrium: The right atrium | | is normal in size.Aortic Valve: The aortic valve is trileaflet, and appears anatomically | | normal. No aortic stenosis or regurgitation.Mitral Valve: There is trace mitral | | regurgitation.Mitral Valve: Mild thickening of the mitral valve leaflets.Tricuspid | | Valve: The tricuspid valve appears structurally normal.Tricuspid Valve: Mild tricuspid | | regurgitation present.Tricuspid Valve: There is no evidence of pulmonary | | hypertension.Tricuspid Valve: The right ventricular systolic pressure (pulmonary artery | | systolic pressure), as measured by Doppler, is 29.74mmHg.Pulmonic Valve: The pulmonic | | valve was not well visualized.Pulmonic Valve: Trace pulmonic regurgitation.Pericardium: | | There is no pericardial effusion.IVC/Hepatic Veins: The IVC is normal size (1.5-2.5cm) | | and collapses >50% with sniff, consistent with central venous pressures of | | 5-10mmHg.Aorta: The aortic root, ascending aorta sizes are normal. | | MEASUREMENTS Ao asc: 2.73 cmAo sinus: 3.[address] junct: 2.51 cmIVC: | | 1.68 cmLA Major: 4.69 cmEDV(Teich): 78.97 mlIVSd: 0.85 cmLVIDd: 4.20 cmLVPWd: | | 1.00 cmLVOT Diam: 2.17 cm%FS: 26.73 %EF(Teich): 52.59 %ESV(Teich): 37.43 | | mlIVSs: 1.14 cmLVIDs: 3.08 cmLVPWs: 1.12 cmSV(Teich): 41.53 mlRA Major: 4.75 | | cmRVIDd: 3.31 cmLAESV(A-L): 30.77 mlLAESV Index (A-L): 14.51 ml/m2LAAs A2C: | | 12.51 [id number] A-L A2C: 31.09 mlLALs A2C: 4.27 cmLAAs A4C: 12.38 [id number] A-L A4C: | | 29.65 mlLALs A4C: 4.39 cmAo Diam: 3.76 cmAV Cusp: 2.11 cmLA Diam: 2.82 | | cmLA/Ao: 0.75%FS: 30.08 %EDV(Teich): 78.79 mlEF(Teich): 57.72 %ESV(Teich): | | 33.31 mlIVSd: 0.75 cmIVSs: 1.02 cmLVIDd: 4.20 cmLVIDs: 2.94 cmLVPWd: 0.88 | | cmLVPWs: 1.23 cmSV(Teich): 45.48 mlTAPSE: 1.36 cmIVC diameter: 2.14 cmIVC | | collapse: 0.73 cmIVC % collapse: 63.81 %HR: 61.05 BPMAV maxP.03 mmHgAV | | meanP.94 mmHgAV Vmax: 1.22 m/Juan Vmean: 0.95 m/Juan VTI: 26.97 cmAVA Vmax: | | 2.73 cm2AVA (VTI): 2.68 [id number] Vmax: 0.00 cm2/m2AVAI (VTI): 0.00 cm2/m2LVCI Dopp: | | 2.15 [id number] Dopp: 4.56 l/minHR: 63.05 BPMLVOT maxP.24 mmHgLVOT meanPG: | | 1.77 mmHgLVSI Dopp: 34.17 ml/m2LVSV Dopp: 72.45 mlLVOT Vmax: 0.90 m/sLVOT | | Vmean: 0.63 m/sLVOT VTI: 19.43 cmMCO: 432.52 msMV A Simone: 0.70 m/sMV DecT: | | 116.90 msMV E Simone: 1.00 m/sMV E/A Ratio: 1.42MV PHT: 47.99 msMVA By PHT: 4.58 | | cm2MV A Dur: 114.18 msSeptal e': 0.07 m/sSeptal E/e': 13.96Lateral e': 0.12 | | m/sLateral E/e': 7.80P Vein A: 0.24 m/sP Vein A Dur: 96.88 msP Vein D: 0.33 m/sP | | Vein S/D Ratio: 0.90P Vein S: 0.30 m/sRAP: 5 mmHgRV S': 0.10 m/sRVSP: 29.73 | | mmHgTR maxP.73 mmHgTR Vmax: 2.48 m/sTV A Simone: 0.45 m/sTV Dec Evans: 2.98 | | m/s2TV Dec Time: 180.49 msTV E Simone: 0.53 m/sTV E/A Ratio: 1.19 Respite Coordinator: | | KVWAuthenticated by: Hans Lee MDReport Date/Time: -[id number] | | IMPRESSION: 1. Overall left ventricular systolic function is normal with, an EF between | | 55 - 60 %.2. The diastolic filling pattern is normal for the age of the patient.3. There | | is no evidence of pulmonary hypertension. | |EDV(Teich): 78.97 ml | |IVSd: 0.85 cm | |LVIDd: 4.20 cm | |LVPWd: 1.00 cm | |LVOT Diam: 2.17 cm | |%FS: 26.73 % | |EF(Teich): 52.59 % | |ESV(Teich): 37.43 ml | |IVSs: 1.14 cm | |LVIDs: 3.08 cm | |LVPWs: 1.12 cm | |SV(Teich): 41.53 ml | |RA Major: 4.75 cm | |RVIDd: 3.31 cm | |LAESV(A-L): 30.77 ml | |LAESV Index (A-L): 14.51 ml/m2 | |LAAs A2C: 12.51 cm2 | |LAESV A-L A2C: 31.09 ml | |LALs A2C: 4.27 cm | |LAAs A4C: 12.38 cm2 | |LAESV A-L A4C: 29.65 ml | |LALs A4C: 4.39 cm | |Ao Diam: 3.76 cm | |AV Cusp: 2.11 cm | |LA Diam: 2.82 cm | |LA/Ao: 0.75 | |%FS: 30.08 % | |EDV(Teich): 78.79 ml | |EF(Teich): 57.72 % | |ESV(Teich): 33.31 ml | |IVSd: 0.75 cm | |IVSs: 1.02 cm | |LVIDd: 4.20 cm | |LVIDs: 2.94 cm | |LVPWd: 0.88 cm | |LVPWs: 1.23 cm | |SV(Teich): 45.48 ml | |TAPSE: 1.36 cm | |IVC diameter: 2.14 cm | |IVC collapse: 0.73 cm | |IVC % collapse: 63.81 % | |HR: 61.05 BPM | |AV maxP.03 mmHg | |AV meanP.94 mmHg | |AV Vmax: 1.22 m/s | |AV Vmean: 0.95 m/s | |AV VTI: 26.97 cm | |FRANCY Vmax: 2.73 cm2 | |FRANCY (VTI): 2.68 cm2 | |AVAI Vmax: 0.00 cm2/m2 | |AVAI (VTI): 0.00 cm2/m2 | |LVCI Dopp: 2.15 l/minm2 | |LVCO Dopp: 4.56 l/min | |HR: 63.05 BPM | |LVOT maxP.24 mmHg | |LVOT meanP.77 mmHg | |LVSI Dopp: 34.17 ml/m2 | |LVSV Dopp: 72.45 ml | |LVOT Vmax: 0.90 m/s | |LVOT Vmean: 0.63 m/s | |LVOT VTI: 19.43 cm | |MCO: 432.52 ms | |MV A Simone: 0.70 m/s | |MV DecT: 116.90 ms | |MV E Simone: 1.00 m/s | |MV E/A Ratio: 1.42 | |MV PHT: 47.99 ms | |MVA By PHT: 4.58 cm2 | |MV A Dur: 114.18 ms | |Septal e': 0.07 m/s | |Septal E/e': 13.96 | |Lateral e': 0.12 m/s | |Lateral E/e': 7.80 | |P Vein A: 0.24 m/s | |P Vein A Dur: 96.88 ms | |P Vein D: 0.33 m/s | |P Vein S/D Ratio: 0.90 | |P Vein S: 0.30 m/s | |RAP: 5 mmHg | |RV S': 0.10 m/s | |RVSP: 29.73 mmHg | |TR maxP.73 mmHg | |TR Vmax: 2.48 m/s | |TV A Simone: 0.45 m/s | |TV Dec Evans: 2.98 m/s2 | |TV Dec Time: 180.49 ms | |TV E Simone: 0.53 m/s | |TV E/A Ratio: 1.19 | | | |Respite Coordinator: KVW | |Authenticated by: Hans Lee MD | |Report Date/Time: -- [id number] | | | |IMPRESSION: | |1. Overall left ventricular systolic function is normal with, an EF between 55 - 60 %. | |2. The diastolic filling pattern is normal for the age of the patient. | |3. There is no evidence of pulmonary hypertension. | + + ECG 12 lead (03/03/2017 6:57 AM PDT) + + + + + [...] of | | | | | | 02-MAR-2017 21:20,No | | | | | | significant change was | | | | | | foundConfirmed by | | | | | | HANS LEE ([id number]) on | | | | | | 03/03/2017 12:54:55 PM | | | | + + + + + + + + | Specimen | + + | | + + + + + | Narrative | Performed At | + + + | Historically converted procedure from [facility] Epic environment | EXTERNAL LAB | + + + + +---------+ + + | Performing | Address | City/State/Zipcode | Phone Number | | Organization | | | | + +---------+ + + | EXTERNAL LAB | | | | + +---------+ + + Streptococcus Pneumoniae Ag, Urine (03/03/2017 5:35 AM PDT) + + | Specimen | + + | | + + + + + | Narrative | Performed At | + + + | S PNEUMONIAE AG, UR NEGATIVE A NEGATIVE | EXTERNAL LAB | | S. PNEUMONIAE URINARY ANTIGEN TEST RESULT DOES NOT EXCLUDE INFECTION | | | WITH S. PNEUMONIAE. CLINICAL CORRELATION IS RECOMMENDED. Testing | | | performed at [address] [address] | | + + + + +---------+ + + | Performing | Address | City/State/Zipcode | Phone Number | | Organization | | | | + +---------+ + + | EXTERNAL LAB | | | | + +---------+ + + Legionella, Ag, EIA, Qual, Urine (03/03/2017 5:34 AM PDT) + + + + + + | Component | Value | Ref Range | Performed | Pathologist | | | | | At | Signature | + + + + + + | LEGIONELLA | NEGATIVEComment: THIS | | EXTERNAL | | | AG,U INTERP | ASSAY DETECTS LEGIONELLA | | LAB | | | | PNEUMOPHILA SEROGROUP | | | | | | ONE (1) ANTIGEN.A | | | | | | NEGATIVE TEST RESULT | | | | | | DOES NOT RULE OUT THE | | | | | | POSSIBILITY OF | | | | | | LEGIONELLAINFECTION DUE | | | | | | TO OTHER SEROGROUPS OR | | | | | | SPECIES OF | | | | | | LEGIONELLA.Testing | | | | | | performed at [facility], [address] | | | | | | [facility] | | | | | | [place] [address] | | | | + + + + + + + + | Specimen | + + | Urine specimen | | (specimen) | + + + +---------+ + + | Performing | Address | City/State/Zipcode | Phone Number | | Organization | | | | + +---------+ + + | EXTERNAL LAB | | | | + +---------+ + + CK-MB (03/03/2017 4:58 AM PDT) + + + + + -+ | Component | Value | Ref Range | Performed | Pathologist | | | | | At | Signature | + + + + + -+ | CK-MB | 2.0 | 0.5 - 3.6 ng/mL | EXTERNAL | | | | | | LAB | | + + + + + -+ | CK-MB Index | 1.9Comment: CK INDEX | | EXTERNAL | | [...] | + +---------+ + + Troponin I (03/03/2017 4:58 AM PDT) + + + + + [...] | | | | | | ACUTE AL Testing | | | | | | performed at [facility];[address] | | | | | [address] [facility];[place], [place] | | | | | | [address] | | | | + + + [...] + +---------+ + + External Lab: CBC (03/03/2017 4:58 AM PDT) + + + + + + | Component | Value | Ref Range | Performed | Pathologist | | | | | At | Signature | + + + + + + | WBC | 4.92 | 3.80 - 11.00 | EXTERNAL | | | | | K/uL | LAB | | + + + + + + | Non- | 4.47 | 4.20 - 5.70 | EXTERNAL | | | Red Blood | | M/uL | LAB | | | Cells | | | | | | Counted | | | | | + + + + + + | Hemoglobin | 13.3 | 13.2 - 17.0 | EXTERNAL | | | | | g/dL | LAB | | + + + + + + | Hematocrit, | 38.2 (L) | 39.0 - 50.0 % | EXTERNAL | | | POC | | | LAB | | + + + + + + | MCV | 85.5 | 80.0 - 100.0 fl | EXTERNAL | | | | | | LAB | | + + + + + + | MCH | 29.8 | 27.0 - 34.0 pg | EXTERNAL | | | | | | LAB | | + + + + + + | MCHC | 34.9 | 32.0 - 35.5 | EXTERNAL | | | | | g/dL | LAB | | + + + + + + | RDW-CV | 42.9 | 37 - 53 fl | EXTERNAL | | | | | | LAB | | + + + + + + | Platelet | 213 | 150 - 400 K/uL | EXTERNAL | | | Count | | | LAB | | | Plasma | | | | | + + + + + + | MPV | 8.4 | fl | EXTERNAL | | | | | | LAB | | + + + + + + | Differentia | MANUAL | | EXTERNAL | | | l Type | | | LAB | | + + + + + + | Segmented | 32 | % | EXTERNAL | | | Neutrophils | | | LAB | | | Manual | | | | | + + + + + + | % | 1 | % | EXTERNAL | | | Metamyelocy | | | LAB | | | sandra | | | | | + + + + + + | Lymphocytes | 43 | % | EXTERNAL | | | Manual | | | LAB | | + + + + + + | Reactive | 2 | % | EXTERNAL | | | Lymphocytes | | | LAB | | + + + + + + | Monocytes | 7 | % | EXTERNAL | | | Manual | | | LAB | | + + + + + + | Eosinophils | 15 | % | EXTERNAL | | | Manual | | | LAB | | + + + + + + | Absolute | 1.57 (L) | 1.90 - 7.40 | EXTERNAL | | | Neutrophils | | K/uL | LAB | | + + + + + + | Absolute | 0.05 (H) | K/uL | EXTERNAL | | | Metamyelocy | | | LAB | | | sandra | | | | | + + + + + + | Absolute | 2.12 | 1.00 - 3.90 | EXTERNAL | | | Lymphocytes | | K/uL | LAB | | + + + + + + | Reactive | 0.10 | K/uL | EXTERNAL | | | Lymphocytes | | | LAB | | + + + + + + | Absolute | 0.34 | 0.00 - 0.80 | EXTERNAL | | | Monocytes | | K/uL | LAB | | + + + + + + | Absolute | 0.74 (H) | 0.00 - 0.50 | EXTERNAL | | | Eosinophils | | K/uL | LAB | | + + + + + + | RBC | RBC AND PLT MORPHOLOGY | | EXTERNAL | | | Morphology | APPEAR NORMALComment: | | LAB | | | | Testing performed at | | | | | | [facility], [address] | | | | | | [place] | | | | | | [address] | | | | + + + + + + + + | Specimen | + + | Blood specimen | | (specimen) | + + + +---------+ + + | Performing | Address | City/State/Zipcode | Phone Number | | Organization | | | | + +---------+ + + | EXTERNAL LAB | | | | + +---------+ + + Phosphorus (03/03/2017 4:58 AM PDT) + + + + + + | Component | Value | Ref Range | Performed | Pathologist | | | | | At | Signature | + + + + + + | PHOSPHORUS | 2.2 (L)Comment: Testing | 2.3 - 4.8 mg/dL | EXTERNAL | | | | performed at [facility], [address] | | LAB | | | | [place], | | | | | | [place] [address] | | | | + + + + + + + + | Specimen | + + | Blood specimen | | (specimen) | + + + +---------+ + + | Performing | Address | City/State/Zipcode | Phone Number | | Organization | | | | + +---------+ + + | EXTERNAL LAB | | | | + +---------+ + + Magnesium (03/03/2017 4:58 AM PDT) + + + + + + | Component | Value | Ref Range | Performed | Pathologist | | | | | At | Signature | + + + + + + | Magnesium | 2.1Comment: Testing | 1.7 - 2.4 mg/dL | EXTERNAL | | | | performed at [facility], [address] | | LAB | | | | [place], | | | | | | [place] [address] | | | | + + + + + + + + | Specimen | + + | Blood specimen | | (specimen) | + + + +---------+ + + | Performing | Address | City/State/Zipcode | Phone Number | | Organization | | | | + +---------+ + + | EXTERNAL LAB | | | | + +---------+ + + CK Total (03/03/2017 4:58 AM PDT) + + + + + + | Component | Value | Ref Range | Performed | Pathologist | | | | | At | Signature | + + + + + + | CK, Total | 106Comment: Testing | 55 - 400 U/L | EXTERNAL | | | | performed at [facility] [place];[address] | | LAB | | | | [facility];[place], [place] | | | | | | [address] | | | | + + + [...] + +---------+ + + Basic Metabolic Panel (03/03/2017 4:58 AM PDT) + + + + + + | Component | Value | Ref Range | Performed | Pathologist | | | | | At | Signature | + + + + + + | Na | 138 | 135 - 145 | EXTERNAL | | | | | mmol/L | LAB | | + + + + + + | K | 4.1 | 3.5 - 4.9 | EXTERNAL | | | | | mmol/L | LAB | | + + + + + + | Cl | 107 | 99 - 109 mmol/L | EXTERNAL | | | | | | LAB | | + + + + + + | CO2 | 25 | 23 - 32 mmol/L | EXTERNAL | | | | | | LAB | | + + + + + + | Anion Gap | 10 | 5 - 20 mmol/L | EXTERNAL | | | | | | LAB | | + + + + + + | Glucose, | 105 (H) | 65 - 99 mg/dL | EXTERNAL | | | Fasting | | | LAB | | + + + + + + | BUN | 18 | 8 - 25 mg/dL | EXTERNAL | | | | | | LAB | | + + + + + + | Creatinine | 0.7 | 0.70 - 1.30 | EXTERNAL | | | | | mg/dL | LAB | | + + + + + + | BUN/Creatin | 26 | | EXTERNAL | | | ine [...] | | | | | | at [facility], [address] | | | | | | [address], | | | | | | [place] [address] | | | | + + + + + + + + | Specimen | + + | Blood specimen | | (specimen) | + + + +---------+ + + | Performing | Address | City/State/Zipcode | Phone Number | | Organization | | | | + +---------+ + + | EXTERNAL LAB | | | | + +---------+ + + CK-MB (03/03/2017 1:08 AM PDT) + + + + + -+ | Component | Value | Ref Range | Performed | Pathologist | | | | | At | Signature | + + + + + -+ | CK-MB | 2.3 | 0.5 - 3.6 ng/mL | EXTERNAL | | | | | [...] | + +---------+ + + Troponin I (03/03/2017 1:08 AM PDT) + + + + + [...] | | | | | | ACUTE AL Testing | | | | | | performed at [facility];[address] | | | | | | [facility];[place], [place] | | | | | | [address] | | | | + + + + + + + + | Specimen | + + | Blood specimen | | (specimen) | + + + +---------+ + + | Performing | Address | City/State/Zipcode | Phone Number | | Organization | | | | + +---------+ + + | EXTERNAL LAB | | | | + +---------+ + + CK Total (03/03/2017 1:08 AM PDT) + + + + + + | Component | Value | Ref Range | Performed | Pathologist | | | | | At | Signature | + + + + + + | CK, Total | 114Comment: Testing | 55 - 400 U/L | EXTERNAL | | | | performed at [facility];[address] | | LAB | | | | Dhiraj Lovell;[place] | | | | | | [address] | | | | + + + + + + + + | Specimen | + + | Blood specimen | | (specimen) | + + + +---------+ + + | Performing | Address | City/State/Zipcode | Phone Number | | Organization | | | | + +---------+ + + | EXTERNAL LAB | | | | + +---------+ + + XR Finger Left 2 + Vw (03/03/2017 12:32 AM PDT) + + | Specimen | + + | | + + + + + | Impressions | Performed At | + + + | 1. Amputation of the tuft and distal soft tissues of the left | | | third distal phalanx, probably with small chronic smooth bone fragment | | | ulnar to the amputation site. 2. No other opaque foreign bodies. | | | 3. Osteoarthritic degenerative change. | | + + + + + + | Narrative | Performed At | + + + | HISTORY: Foreign body left finger. COMPARISON: None. | | | TECHNIQUE: AP left hand with oblique and lateral films of the left | | | third digit. FINDINGS: Amputation of the distal soft tissues of | | | the left third digit, and tuft of the left third distal phalanx. The | | | nail has been truncated, deformed. There is faint oval-shaped density | | | ulnar to the bony amputation measuring 2 x 1 mm, probably representing | | | tiny bone fragment. No other opaque foreign bodies are seen. Mild | | | osteoarthritic degenerative change of the DIP joints and left first | | | MCP joint of the left hand, with moderate left first IP, left first | | | CMC joint osteoarthritic degenerative change. | | + + + + + | Procedure Note | + + | Amaury Arnett Conversion - 06/23/2019 10:51 PM PDT HISTORY:Foreign body left finger. | | COMPARISON:None. TECHNIQUE:AP left hand with oblique and lateral films of the left third | | digit. FINDINGS:Amputation of the distal soft tissues of the left third digit, and tuft | | of the left third distal phalanx. The nail has been truncated, deformed. There is faint | | oval-shaped density ulnar to the bony amputation measuring 2 x 1 mm, probably | | representing tiny bone fragment. No other opaque foreign bodies are seen. Mild | | osteoarthritic degenerative change of the DIP joints and left first MCP joint of the | | left hand, with moderate left first IP, left first CMC joint osteoarthritic degenerative | | change. IMPRESSION: 1. Amputation of the tuft and distal soft tissues of the left | | third distal phalanx, probably with small chronic smooth bone fragment ulnar to the | | amputation site.2. No other opaque foreign bodies.3. Osteoarthritic degenerative | | change. | | | |IMPRESSION: | |1. Amputation of the tuft and distal soft tissues of the left third distal phalanx, probab ly with small chronic smooth bone fragment ulnar to the amputation site. | |2. No other opaque foreign bodies. | |3. Osteoarthritic degenerative change. | | | | | + + CT Angiogram Pulmonary w Contrast (03/03/2017 12:31 AM PDT) + + | Specimen | + + | | + + + + + | Impressions | Performed At | + + + | 1. No acute pulmonary process. 2. Normal pulmonary CT angiogram. | | | No pulmonary emboli. RADIA Electronically signed by Isabel | | | MD Jonnie on Mar 03 2017 1:09AM Referring Provider Line: | | | [phone] ID: [id number] | | + + + + + + | Narrative | Performed At | + + + | EXAM: CT ANGIOGRAM CHEST EXAM DATE: 03/03/2017 12:32 AM. | | | CLINICAL HISTORY: Chest pain. COMPARISON: 03/02/2017. | | | TECHNIQUE: Routine helical imaging was performed through the chest in | | | the pulmonary arterial phase. IV Contrast: 62 mL of Isovue 370. | | | Reconstructions: Coronal 3D MIP reconstructions.Sagittal and coronal. | | | In accordance with CT protocol optimization, one or more of the | | | following dose reduction techniques were utilized for this exam: | | | automated exposure control, adjustment of mA and/or KV based on | | | patient size, or use of iterative reconstructive technique. | | | FINDINGS: Pulmonary Arteries: Diagnostic quality: Adequate through | | | the segmental arteries. No evidence for acute or chronic pulmonary | | | emboli. RV/LV is within normal limits. There is no | | | interventricular septal bowing. There is no reflux of contrast | | | material in the IVC. Lungs/Pleura: No consolidation, nodules, or | | | edema. No effusions or pneumothorax. Mediastinum: Normal. No | | | cardiac enlargement or adenopathy. Thoracic Aorta: Unremarkable. | | | Upper Abdomen: Small hiatal hernia. Other: No osteoblastic or | | | lytic lesions. Diffuse degenerative disk disease throughout the | | | thoracic spine. | | + + + + + | Procedure Note | + + | Amaury Arnett Conversion - 06/23/2019 10:51 PM PDT EXAM:CT ANGIOGRAM CHEST EXAM DATE: | | 03/03/2017 12:32 AM. CLINICAL HISTORY: Chest pain. COMPARISON: 03/02/2017. TECHNIQUE: | | Routine helical imaging was performed through the chest in the pulmonary arterial phase. | | IV Contrast: 62 mL of Isovue 370. Reconstructions: Coronal 3D MIP | | reconstructions.Sagittal and coronal. In accordance with CT protocol optimization, one | | or more of the following dose reduction techniques were utilized for this exam: | | automated exposure control, adjustment of mA and/or KV based on patient size, or use of | | iterative reconstructive technique. FINDINGS:Pulmonary Arteries:Diagnostic quality: | | Adequate through the segmental arteries. No evidence for acute or chronic pulmonary | | emboli. RV/LV is within normal limits. There is no interventricular septal bowing. There | | is no reflux of contrast material in the IVC. Lungs/Pleura: No consolidation, nodules, | | or edema. No effusions or pneumothorax. Mediastinum: Normal. No cardiac enlargement or | | adenopathy. Thoracic Aorta: Unremarkable. Upper Abdomen: Small hiatal hernia. Other: No | | osteoblastic or lytic lesions. Diffuse degenerative disk disease throughout the thoracic | | spine. IMPRESSION: 1. No acute pulmonary process.2. Normal pulmonary CT angiogram. No | | pulmonary emboli. RADIA Electronically signed by Isabel Cristina MD on Mar 03 2017 | | 1:09AM Referring Provider Line: [phone] ID: [id number] | |RV/LV is within normal limits. There is no interventricular septal bowing. There is no refl ux of contrast material in the IVC. | | | |Lungs/Pleura: No consolidation, nodules, or edema. No effusions or pneumothorax. | | | |Mediastinum: Normal. No cardiac enlargement or adenopathy. | | | |Thoracic Aorta: Unremarkable. | | | |Upper Abdomen: Small hiatal hernia. | | | |Other: No osteoblastic or lytic lesions. Diffuse degenerative disk disease throughout the t horacic spine. | | | |IMPRESSION: | | | |1. No acute pulmonary process. | |2. Normal pulmonary CT angiogram. No pulmonary emboli. | | | |RADIA | | | | Electronically signed by Isabel Cristina MD on Mar 03 2017 1:09AM Referring Provider Amaya ne: [phone] ID: [id number] | + + HISTORICAL MICROBIOLOGY RESULT (03/03/2017 12:30 AM PDT) + + | Specimen | + + | | + + + + + | Narrative | Performed At | + + + | ADENOVIRUS Not Detected | EXTERNAL LAB | | CORONAVIRUS 229E Not Detected CORONAVIRUS | | | HKU1 Not Detected CORONAVIRUS NL63 | | | Not Detected CORONAVIRUS OC43 | | | Not Detected HUMAN METAPNEUMOVIRUS Not | | | Detected HUMAN RHINO/ENTERO DETECTED | | | Abnormal Due to the genetic similarity between Human Rhinovirus and | | | Enterovirus, the assay cannot reliably differentiate them. A positive | | | FilmArray RP Rhinovirus/Enterovirus result should be followed-up | | | using an alternate method. INFLUENZA A | | | Not Detected INFLUENZA B Not | | | Detected PARAINFLUENZA 1 Not Detected | | | PARAINFLUENZA 2 Not Detected | | | PARAINFLUENZA 3 Not Detected | | | PARAINFLUENZA 4 Not Detected RESP | | | SYNCYTIAL VIRUS Not Detected BORDETELLA | | | PERTUSSIS Not Detected CHLAMYDIAE PNEUMONIAE | | | Not Detected MYCOPLASMA PNEUMONIAE | | | Not Detected RESP PANEL INTERP Testing | | | performed by Molecular Methodology Testing performed at [facility], [address] | | | [place] [address] | | + + + + +---------+ + + | Performing | Address | City/State/Zipcode | Phone Number | | Organization | | | | + +---------+ + + | EXTERNAL LAB | | | | + +---------+ + + Culture, Blood, 2nd Specimen (03/02/2017 10:42 PM PDT) + + | Specimen | + + | Blood specimen | | (specimen) | + + + + + | Narrative | Performed At | + + + | Specimen Description BLOOD SPECIAL | EXTERNAL LAB | | REQUESTS R HAND CULTURE | | | NO GROWTH 6 DAYS | | + + + + +---------+ + + | Performing | Address | City/State/Zipcode | Phone Number | | Organization | | | | + +---------+ + + | EXTERNAL LAB | | | | + +---------+ + + XR Chest 2 Vws (03/02/2017 9:46 PM PDT) + + | Specimen | + + | | + + + + + | Impressions | Performed At | + + + | 1. No evidence of acute or new disease -- although chronic and | | | senescent appearing changes are noted as above which could | | | contribute to some symptoms. | | + + + + + + | Narrative | Performed At | + + + | HISTORY: 51 years old Male, chest pain, shortness of breath | | | TECHNIQUE: Frontal and lateral computer enhanced radiographic | | | examination of the chest, 02 March 2017. Prior study for comparison | | | -- 25 July 2015 FINDINGS: Mediastinum -- unremarkable. | | | Some vascular calcification. Lung markings are somewhat coarse. | | | Similar to the prior examination however No focal infiltrate or | | | evidence of advanced pulmonary venous hypertension. Lung volumes are | | | symmetric and stable. Degenerative change the spine and shoulders | | | with anterior osteophytosis and multilevel disc space narrowing. | | + + + + + | Procedure Note | + + | Melquiades, Rad Conversion - 06/23/2019 10:51 PM PDT HISTORY: 51 years old Male, chest pain, | | shortness of breath TECHNIQUE: Frontal and lateral computer enhanced radiographic | | examination of the chest, 02 March 2017. Prior study for comparison -- 25 July | | 2014 FINDINGS: Mediastinum -- unremarkable. Some vascular calcification. Lung markings | | are somewhat coarse. Similar to the prior examination however No focal infiltrate or | | evidence of advanced pulmonary venous hypertension. Lung volumes are symmetric and | | stable. Degenerative change the spine and shoulders with anterior osteophytosis and | | multilevel disc space narrowing. IMPRESSION: 1. No evidence of acute or new disease -- | | although chronic and senescent appearing changes are noted as above which could | | contribute to some symptoms. Electronically signed by Jason Seay MD on | | 03/02/2017 9:57 PM | | | |IMPRESSION: | | | |1. No evidence of acute or new disease -- although chronic and senescent appearing changes are noted as above which could contribute to some symptoms. | | | | | | | | | + + Culture, Blood (03/02/2017 9:25 PM PDT) + + | Specimen | + + | Blood specimen | | (specimen) | + + + + + | Narrative | Performed At | + + + | Specimen Description BLOOD CULTURE | EXTERNAL LAB | | NO GROWTH 6 DAYS | | + + + + +---------+ + + | Performing | Address | City/State/Zipcode | Phone Number | | Organization | | | | + +---------+ + + | EXTERNAL LAB | | | | + +---------+ + + HISTORICAL LAB PANEL RESULT (03/02/2017 9:25 PM PDT) + + + + + -+ | Component | Value | Ref Range | Performed | Pathologist | | | | | At | Signature | + + + + + -+ | WBC | 5.93 | 3.80 - 11.00 | EXTERNAL | | | | | K/uL | LAB | | + + + + + -+ | Non- | 4.79 | 4.20 - 5.70 | EXTERNAL | | | Red Blood | | M/uL | LAB | | | Cells | | | | | | Counted | | | | | + + + + + -+ | Hemoglobin | 14.3 | 13.2 - 17.0 | EXTERNAL | | | | | g/dL | LAB | | + + + + + -+ | Hematocrit, | 41.4 | 39.0 - 50.0 % | EXTERNAL | | | POC | | | LAB | | + + + + + -+ | MCV | 86.5 | 80.0 - 100.0 fl | EXTERNAL | | | | | | LAB | | + + + + + -+ | MCH | 29.8 | 27.0 - 34.0 pg | EXTERNAL | | | | | | LAB | | + + + + + -+ | MCHC | 34.4 | 32.0 - 35.5 | EXTERNAL | | | | | g/dL | LAB | | + + + + + -+ | RDW-CV | 43.8 | 37 - 53 fl | EXTERNAL | | | | | | LAB | | + + + + + -+ | Platelet | 231 | 150 - 400 K/uL | EXTERNAL | | | Count | | | LAB | | | Plasma | | | | | + + + + + -+ | MPV | 7.8 | fl | EXTERNAL | | | | | | LAB | | + + + + + -+ | Differentia | AUTOMATED | | EXTERNAL | | | l Type | | | LAB | | + + + + + -+ | % Segmented | 38.73 | % | EXTERNAL | | | | | | LAB | | | Neutrophils | | | | | + + + + + -+ | % | 43.25 | % | EXTERNAL | | | Lymphocytes | | | LAB | | + + + + + -+ | % Monocytes | 6.13 | % | EXTERNAL | | | | | | LAB | | + + + + + -+ | % | 11.20 | % | EXTERNAL | | | Eosinophils | | | LAB | | + + + + + -+ | % Basophils | 0.69 | % | EXTERNAL | | | | | | LAB | | + + + + + -+ | Absolute | 2.30 | 1.90 - 7.40 | EXTERNAL | | | Segmented | | K/uL | LAB | | | Neutrophils | | | | | + + + + + -+ | Absolute | 2.57 | 1.00 - 3.90 | EXTERNAL | | | Lymphocytes | | K/uL | LAB | | + + + + + -+ | Absolute | 0.36 | 0.00 - 0.80 | EXTERNAL | | | Monocytes | | K/uL | LAB | | + + + + + -+ | Absolute | 0.67 (H) | 0.00 - 0.50 | EXTERNAL | | | Eosinophils | | K/uL | LAB | | + + + + + -+ | Absolute | 0.04 | 0.00 - 0.10 | EXTERNAL | | | Basophils | | K/uL | LAB | | + + + + + -+ | Na | 138 | 135 - 145 | EXTERNAL | | | | | mmol/L | LAB | | + + + + + -+ | K | 4.3Comment: SLT | 3.5 - 4.9 | EXTERNAL | | | | HEMOLYSIS | mmol/L | LAB | | + + + + + -+ | Cl | 104 | 99 - 109 mmol/L | EXTERNAL | | | | | | LAB | | + + + + + -+ | CO2 | 27 | 23 - 32 mmol/L | EXTERNAL | | | | | | LAB | | + + + + + -+ | Anion Gap | 11 | 5 - 20 mmol/L | EXTERNAL | | | | | | LAB | | + + + + + -+ | Glucose, | 103 (H) | 65 - 99 mg/dL | EXTERNAL | | | Fasting | | | LAB | | + + + + + -+ | BUN | 20 | 8 - 25 mg/dL | EXTERNAL | | | | | | LAB | | + + + + + -+ | Creatinine | 0.91 | 0.70 - 1.30 | EXTERNAL | | | | | mg/dL | LAB | | + + + + + -+ | BUN/Creatin | 23 | | EXTERNAL | | | ine Ratio | | | LAB | | + + + + + -+ | Calcium | 8.6 | 8.5 - 10.5 | EXTERNAL | | | | | mg/dL | LAB | | + + + + + -+ | Protein, | 8.8 (H) | 6.3 - 8.2 g/dL | EXTERNAL | | | Total | | | LAB | | + + + + + -+ | Albumin | 3.5 (L) | 3.6 - 5.0 g/dL | EXTERNAL | | | | | | LAB | | + + + + + -+ | Globulin | 5.3 (H) | 1.3 - 4.9 g/dL | EXTERNAL | | | | | | LAB | | + + + + + -+ | A/G Ratio | 0.7 (L) | 1.0 - 2.4 | EXTERNAL | | | | | | LAB | | + + + + + -+ | Bilirubin | 0.2 | 0.1 - 1.5 mg/dL | EXTERNAL | | | Total | | | LAB | | + + + + + -+ | ALP, | 96 | 35 - 115 U/L | EXTERNAL | | | External | | | LAB | | + + + + + -+ | AST | 23Comment: SLT HEMOLYSIS | 10 - 45 U/L | EXTERNAL | | | | | | LAB | | + + + + + -+ | ALT | 27 | 10 - 65 U/L | EXTERNAL | | | | | | LAB | | + + + + + -+ | Estimated | >60Comment: GFR <60: | [...] | | | | CALCULATED GFR BY 1.210. | | | | | | | | | | + + + + + -+ | CK, Total | 141 | 55 - 400 U/L | EXTERNAL | | | | | | LAB | | + + + + + -+ | INR | 1.0Comment: REFERENCE | | [...] SYSTEMIC | | | | | | EMBOLISM | | | | + + + + + -+ | aPTT, | 29 | 23 - 32 seconds | EXTERNAL | | | Patient | | | LAB | | + + + + + -+ | CK-MB | 2.7 | 0.5 - 3.6 ng/mL | EXTERNAL | | | | | | LAB | | + + + + + -+ | CK-MB Index | 1.9Comment: CK INDEX | | EXTERNAL | | [...] | | + +---------+ + + D-Dimer (03/02/2017 9:25 PM PDT) + + + + + + | Component | Value | Ref Range | Performed | Pathologist | | | | | At | Signature | + + + + + + | D-DIMER, | 0.64 (H)Comment: D Dimer | 0.19 - 0.50 [...] | | | | performed at [facility] | | | | | | [facility];[place], [place] | | | | | | [address] | | | | + + + + + + + + | Specimen | + + | | + + + +---------+ + + | Performing | Address | City/State/Zipcode | Phone Number | | Organization | | | | + +---------+ + + | EXTERNAL LAB | | | | + +---------+ + + Lactic Acid (03/02/2017 9:25 PM PDT) + + + + + + | Component | Value | Ref Range | Performed | Pathologist | | | | | At | Signature | + + + + + + | Lactate | 1.2Comment: Testing | 0.4 - 2.0 | EXTERNAL | | | | performed at [facility];[address] | mmol/L | LAB | | | | Dhiraj Lovell;[place], [place] | | | | | | [address] | | | | + + + [...] + +---------+ + + ECG 12 lead (03/02/2017 9:20 PM PDT) + + + + + [...] of | | | | | | 22-MAY-2015 22:12,No | | | | | | significant [...] (500), | | | | | | design editor FARHEEN KU | | | | | | (125) on 03/03/2017 | | | | | | 3:28:07 AM | | | | + + + + + + + + | Specimen | + + | | + + + + + | Narrative | Performed At | + + + | [facility] | EXTERNAL LAB | + + + + +---------+ + + | Performing | Address | City/State/Zipcode | Phone Number | | Organization | | | | + +---------+ + + | EXTERNAL LAB | | | | + +---------+ + + documented in this encounter Visit Diagnoses + + | Diagnosis | + + | Chest pain, unspecified type | + + | Wheezing | + + | Elevated blood pressure Elevated blood pressure reading without diagnosis of | | hypertension | + + | Cough | + + | Obesity, unspecified | + + documented in this [...]
--- OUTSIDE RECORDS SUMMARY | ~2020-06-05 | XMS | Encounter Summary ---
Demographics + + + | Address | [address] | | | [place] [address] | + + + | Home Phone [...] + + + | Author | [facility] | + + + | Organization | [facility] | + + + | Address | Unknown | + + + | Phone | Unavailable | + + + Support + + +---------+ + | Name | Relationship | Address | Phone | + + +---------+ + | Skyler Todd | ECON | Unknown | | + + +---------+ + Care Team Providers + +------+ + | Care Pipe Chipper Name | Role | Phone | + [...] | [address] | [address] [place], | medication (young | | | | Mailcode: [id number] | [place] [address] | pt-medication side | | | | [facility] | [phone] | effects) | | | | [place], [place] | | | | | | [address] | | | | | | [phone] | | | +--------+ + + + [...]
--- OUTSIDE RECORDS SUMMARY | ~2020-06-05 | XMS | Encounter Summary ---
Demographics + + + | Address | [address] | | | [place] [address] | + + + | Home Phone [...] Team Providers + +------+ + | Care Process Validation Engineer Name | Role | Phone | [...] Medicine | Faustina Henao MD | Appointment (daarsh | | 2011 | | [facility] | [address] | pt-appointment) | | | | [address] | Reena Carrasco [place], | | | | | Mailcode: [id number] | [place] [address] | | | | | [facility] | [phone] | | | | | [place], [place] | | | | | | [address] | | | | | | [phone] | | | +--------+ + + + [...]
--- OUTSIDE RECORDS SUMMARY | ~2020-06-05 | XMS | Encounter Summary ---
Demographics + + + | Address | [address] | | | [place] [address] | + + + | Home Phone [...] Providers + +------+ + | Care Supervisor Acoustical Tile Carpenters Name | Role | Phone | + [...] | | | [address] | [facility], | | | | | Mailcode: [id number] | [place] [address] | | | | | [facility] | [phone] | | | | | [place], [place] | | | | | | [address] | | | | | | [phone] | | | +--------+--------+ + + + [...]
--- OUTSIDE RECORDS SUMMARY | ~2020-06-05 | XMS | Encounter Summary ---
Demographics + + + | Address | [address] | | | [place] [address] | + + + | Home Phone [...] Team Providers + +------+ + | Care Blender Name | Role | Phone | + [...] | immunodefici | [address] | [address] [facility] | | | | | ency virus | [address] | Eben Valles | | | | | (HIV) | Jaleesa Lazcano, | [place], | | | | | disease | [place] [address] | [place] | | | | | (HCC) | Phone: | [address] | | | | | | [phone] | Phone: | | | | | | Fax: | [phone] | | | | | | [phone] | Fax: | | | | | | | [phone] | +--------+ + + + + + Encounter Details +--------+---------+ + + + | Date | Type | Department | Care Team | Description | +--------+---------+ + + + | 01/01/ | Office | Internal Medicine | Faustina Henao MD | HIV (human | | 2010 | Visit | [facility] | [address] [facility] | immunodeficiency | | | | [address] | [place], | virus infection) | | | | Mailcode: [id number] | [place] [address] | (HCC) (Primary Dx); | | | | [facility] | [phone] | Unspecified asthma; | | | | [place], [place] | | Insomnia; Anxiety | | | | [address] | | state, unspecified; | | | | [phone] | | Hyperlipidemia LDL | | | [...] gait. Labs: Lab Results Component Value Date [id number] 156* 09/04/2010 [id number] 9.0* 09/04/2010 HIVPCR 54 09/04/2010 Lab Results Component Value Date RPR Non-Reactive 09/04/2010 Lab Results Component Value Date CHOL 245 09/04/2010 LDL 142 09/04/2010 HDL 28 09/04/2010 TRI 406 09/04/2010 Lab Results Component Value Date [id number] 31 09/04/2010 Last CBC, CMP reviewed with [...]
[~2020-06-05 10:25] MED LIST changes: +BACTRIM DS TAB1 EACH PO; +NORCO 5-325 TA1 EACH PO; +ODEFSEY TABLET1 EACH PO; +PREDNISONE20 MG PO; +TIVICAY50 MG PO
--- OUTSIDE RECORDS SUMMARY | 2020-06-05 10:28 | XMS ---
PreManage Notification: SLAVA AMES Security Security Chief Museum Events No recent Security Events currently on file CRITERIA MET - Group Notification - [facility] - Has Care Guidelines CARE PROVIDERS JASBIR MCCOY [facility] Current PHONE: Unknown Kodi has no Care Guidelines for this patient. Care History Medical/Surgical 08/31/2019 [facility] EOIPA CASE MANAGEMENT REFERRAL MADE- PATIENT HAS EOCCO AND NO PCP. 01/11/2019 [facility] - PATIENT HAS AN APT ON 02/25/19 @ 9:00AM TO ESTABLISH CARE WITH DR ARANDA. - W AND PATIENT DISCUSSED THE 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 - PATIENT STATED HE MIGHT BE MOVING TO [facility] AND WILL MORE THAN LIKELY LOOK FOR AN EYE PHYSICIAN IN [place] UNTIL HE CAN SWITCH INSURANCE IF NEEDED. E.D. VISIT COUNT (12 MO.) 3 [facility]. TOTAL 3 NOTE: Visits indicate total known visits. ED/UCC VISIT TRACKING (12 MO.) 06/05/2020 10:26 [facility] [place] TYPE: Emergency COMPLAINT: - RIGHT FOOT PAIN, WOUND CHECK 10/28/2019 01:48 [facility] [place] TYPE: Emergency COMPLAINT: - CHEST PAIN DIAGNOSES: - Chest pain, unspecified - Nicotine dependence, unspecified, uncomplicated - Zoster without complications 08/31/2019 03:46 [facility] [place] TYPE: Emergency COMPLAINT: - SOB DIAGNOSES: - Nicotine dependence, unspecified, uncomplicated - Shortness of breath - Unspecified asthma with (acute) exacerbation INPATIENT VISIT TRACKING (12 MO.) No inpatient visits to display in this time frame [email or web address]
[2020-06-05] MEDS ORDERED: AZITHROMYCIN600 MG PO (10:54)
[2020-06-05] MEDS ORDERED: TERBINAFINE HC250 MG PO (10:55)
== END 2020-06-05 11:03 | disposition home or self-care (01) ==
LOC: ED 10:25
DX: M79.671 Pain in right foot (principal)

== ENCOUNTER 2020-09-19 17:36 | Emergency (ER) | payer OTHER ==
[~2020-09-19] VITALS: Ht 172.7 cm; Wt 102.1 kg
[~2020-09-19 17:36] MED LIST changes: +AZITHROMYCIN600 MG PO; +TERBINAFINE HC250 MG PO
--- OUTSIDE RECORDS SUMMARY | 2020-09-19 17:44 | XMS ---
PreManage Notification: SLAVA AMES Security Optical Model Maker And Tester Events No recent Security Events currently on file CRITERIA MET - Group Notification - - Has Care Guidelines CARE PROVIDERS There are no care providers on record at this time. Kodi has no Care Guidelines for this patient. Care History Medical/Surgical 08/31/2019 [facility] EO[facility] CASE MANAGEMENT REFERRAL MADE- PATIENT HAS E[facility]CC[facility] AND NO PCP. 01/11/2019 [facility] - PATIENT HAS AN APT ON 02/25/19 @ 9:00AM TO ESTABLISH CARE WITH DR ARANDA. 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 - PATIENT STATED HE MIGHT BE MOVING TO [facility] AND WILL MORE THAN LIKELY LOOK FOR AN EYE PHYSICIAN IN [place] UNTIL HE CAN SWITCH INSURANCE IF NEEDED. EEdmundo. VISIT COUNT (12 MO.) 3 [facility]. TOTAL 3 NOTE: Visits indicate total known visits. ED/UCC VISIT TRACKING (12 MO.) 2020 17:42 [facility] [place] TYPE: Emergency COMPLAINT: - REMOVE STITCHES 06/05/2020 10:26 [facility] [place] TYPE: Emergency COMPLAINT: - RIGHT FOOT PAIN, WOUND CHECK DIAGNOSES: - Pain in right foot 10/28/2019 01:48 [facility] [place] TYPE: Emergency COMPLAINT: - CHEST PAIN DIAGNOSES: - Chest pain, unspecified - Nicotine dependence, unspecified, uncomplicated - Zoster without complications INPATIENT VISIT TRACKING (12 MO.) No inpatient visits to display in this time frame [email or web address]
== END 2020-09-19 18:00 | disposition home or self-care (01) ==
LOC: ED 17:36
DX: S61.412D Laceration without foreign body of left hand, subsequent encounter (principal)

== ENCOUNTER 2021-02-23 18:41 | Emergency (ER) | payer OTHER ==
[~2021-02-23] VITALS: Ht 172.7 cm; Wt 100.2 kg
--- OUTSIDE RECORDS SUMMARY | 2021-02-23 18:44 | XMS ---
PreManage Notification: SLAVA AMES Security Safety Spec Events No recent Security Events currently on file CRITERIA MET - Group Notification CARE PROVIDERS JASBIR MCCOY [facility] Current PHONE: Unknown Kodi has no Care Guidelines for this patient. EMargaret VISIT COUNT (12 MO.) 3 [facility] Monge TOTAL 3 NOTE: Visits indicate total known visits. ED/UCC VISIT TRACKING (12 MO.) 02/23/2021 18:41 [facility] [place] TYPE: Emergency COMPLAINT: - SHAKING, WEAKNESS 2020 17:42 [facility] [place] TYPE: Emergency COMPLAINT: - REMOVE STITCHES,/MSE HOME DIAGNOSES: - Laceration without foreign body of left hand, subsequent encounter 06/05/2020 10:26 [facility] [place] TYPE: Emergency COMPLAINT: - RIGHT FOOT PAIN, WOUND CHECK DIAGNOSES: - Pain in right foot INPATIENT VISIT TRACKING (12 MO.) No inpatient visits to display in this time frame [id number]
[2021-02-23] MEDS ORDERED: METFORMIN HCL500 MG PO (21:36)
== END 2021-02-23 22:12 | disposition home or self-care (01) ==
LOC: ED 18:41
DX: E11.65 Type 2 diabetes mellitus with hyperglycemia (principal); Z21 Asymptomatic human immunodeficiency virus [HIV] infection status; G47.30 Sleep apnea, unspecified; F17.200 Nicotine dependence, unspecified, uncomplicated; Z79.899 Other long term (current) drug therapy
CPT/HCPCS: 80053; 81001; 82010; 82803; 83036; 85025; 99284; J7030

== ENCOUNTER 2021-06-14 12:25 | Emergency (ER) | payer OTHER ==
[~2021-06-14] VITALS: Ht 172.7 cm; Wt 107.0 kg
[~2021-06-14 12:25] MED LIST changes: +METFORMIN HCL500 MG PO
--- OUTSIDE RECORDS SUMMARY | 2021-06-14 13:52 | XMS ---
PreManage Notification: SLAVA AMES Security Barrel Washer Events No recent Security Events currently on file CRITERIA MET - Group Notification CARE PROVIDERS JASBIR MCCOY [facility] Current PHONE: Unknown Kodi has no Care Guidelines for this patient. EMargaret VISIT COUNT (12 MO.) 3 CHELSEA Monge TOTAL 3 NOTE: Visits indicate total known visits. ED/UCC VISIT TRACKING (12 MO.) 06/14/2021 12:25 CHELSEA Silva OR TYPE: Emergency COMPLAINT: - L KNEE PAIN/INJURY 02/23/2021 18:41 CHELSEA Silva OR TYPE: Emergency COMPLAINT: - WEAKNESS DIAGNOSES: - Type 2 diabetes mellitus with hyperglycemia - Nicotine dependence, unspecified, uncomplicated - Other chcf (current) drug therapy - Sleep apnea, unspecified 2020 17:42 CHELSEA Silva OR TYPE: Emergency COMPLAINT: - REMOVE STITCHES,/MSE HOME DIAGNOSES: - Laceration without foreign body of left hand, subsequent encounter INPATIENT VISIT TRACKING (12 MO.) No inpatient visits to display in this time frame [email or web address]
[2021-06-14] MEDS ORDERED: GLIPIZIDE ER10 MG PO (14:40)
[2021-06-14] MEDS ORDERED: FREESTYLE LITE1 EAC1 MISC (14:41)
[2021-06-14] MEDS ORDERED: EDURANT25 MG PO (14:41)
[2021-06-14] MEDS ORDERED: SULFAMETHOXAZO1 EACH PO (14:41)
[2021-06-14] MEDS ORDERED: PIOGLITAZONE HC30 MG PO (14:41)
[2021-06-14] MEDS ORDERED: BIKTARVY 50-201 EACH PO (14:41)
[2021-06-14] MEDS ORDERED: ODEFSEY TABLET1 EACH PO (14:42)
== END 2021-06-14 15:53 | disposition home or self-care (01) ==
LOC: ED 12:25
DX: S80.02XA Contusion of left knee, initial encounter (principal); Z21 Asymptomatic human immunodeficiency virus [HIV] infection status; W01.10XA Fall on same level from slipping, tripping and stumbling with subsequent striking against unspecified object, initial encounter; G47.30 Sleep apnea, unspecified; F17.200 Nicotine dependence, unspecified, uncomplicated; Z79.899 Other long term (current) drug therapy
CPT/HCPCS: 73560; 73562; 99283-25

== ENCOUNTER 2021-12-15 16:27 | Inpatient (IN) | payer OTHER ==
[~2021-12-15] VITALS: Ht 172.7 cm; Wt 108.6 kg
[~2021-12-15 16:27] MED LIST changes: +BIKTARVY 50-201 EACH PO; +EDURANT25 MG PO; +FREESTYLE LITE1 EAC1 MISC; +GLIPIZIDE ER10 MG PO; +PIOGLITAZONE HC30 MG PO; +SULFAMETHOXAZO1 EACH PO
--- OUTSIDE RECORDS SUMMARY | 2021-12-15 16:34 | XMS ---
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 EMargaret VISIT COUNT (12 MO.) 3 CHELSEA Monge TOTAL 3 NOTE: Visits indicate total known visits. ED/C VISIT TRACKING (12 MO.) 12/15/2021 16:28 CHELSEA Silva OR TYPE: Emergency COMPLAINT: - CHEST PAIN 06/14/2021 12:25 CHELSEA Silva OR TYPE: Emergency COMPLAINT: - L KNEE PAIN/INJURY DIAGNOSES: - Other terminologist (current) drug therapy - Nicotine dependence, unspecified, uncomplicated - Sleep apnea, unspecified - Fall on same level from slipping, tripping and stumbling with subsequent striking against unspecified object, initial encounter - Contusion of left knee, initial encounter - Effusion, left knee 02/23/2021 18:41 CHELSEA Silva OR TYPE: Emergency COMPLAINT: - WEAKNESS DIAGNOSES: - Type 2 diabetes mellitus with hyperglycemia - Nicotine dependence, unspecified, uncomplicated - Other terminologist (current) drug therapy - Sleep apnea, unspecified INPATIENT VISIT TRACKING (12 MO.) No inpatient visits to display in this time frame [email or web address]
[2021-12-15] MEDS ORDERED: PRAVASTATIN SOD40 MG PO (16:43)
--- NOTE | 2021-12-15 19:53 | NUR ---
TELEPHONE REPORT RECEIVED FROM ED RN MOHINI, AWAITING pt's ARRIVAL TO MEDSUR FLOOR AFTER COVID RESULTS ARE KNOWN.
--- NOTE | 2021-12-15 22:16 | NUR ---
PT ARRIVED AT 2114 VIA STRETCHER AND MOVED OVER TO BED ON HIS OWN. PT REPORTS ABD PAIN AT 9/10 AT THIS TIME AND STATES THE DILAUDID HE GOT EARLIER WORE OFF TO FAST. ADMINISTERED DILAUDID 0.6MG IV. COMPLETED ADMISSION HX WITH PT. OREINTED PT TO CALL LIGHT AND ROOM. IV IS INFUSING PER ORDERS. ZOSYN WAS ADMINISTERED IN ED, 2199 ORDER NOT GIVEN PER DUPLICATE ORDER. PT HAS NICOTINE PATCH IN PLACE AND DENIES FURTHER NEEDS AT THIS TIME. CALL LIGHT IS CLOSE.
--- NOTE | 2021-12-15 23:30 | NUR ---
ASSESSMENT COMPLETE, NO SCHEDULED MEDS AT THIS TIME. pt REPORTS PAIN IS TOLERABLE BUT BORDERLINE, 6/10 PAIN IN ABD. ABD FIRM AND TENDER IN RUQ, ABD GUARDED. pt REPORTS FEELING DISTENDED. IV SITE WNL, FLUIDS INFUSING DIRECTED. NICOTINE PATCH ALREADY IN PLACE. pt DENIES FURTHER NEEDS, CALL LIGHT IN REACH.
--- NOTE | 2021-12-15 23:55 | NUR ---
pt REPORTS PAIN IS TOLERABLE AT 610- PREVIOUSLY 07/20. pt ALSO REPORTS HEARTBURN, CALL MADE FROM THIS RN TO MD SANTIAGO. TELEPHONE ORDER READ BACK FOR NEW ORDER IV DILAUDID 1MG Q2H PRN AND FOR 20MG IV PEPCID BID TO START NOW. PER MD SANTIAGO, pt TO BE MADE NPO AT MIDNIGHT, REMOVE ICE CHIPS AT THIS TIME.
--- NOTE | 2021-12-16 00:21 | NUR ---
SCHEDULED PEPCID FOR HEARTBURN GIVEN, SEE EMAR. NO FURTHER NEEDS, CALL LIGHT IN REACH. IV SITE WNL, FLUIDS INFUSING DIRECTED.
--- NOTE | 2021-12-16 03:17 | NUR ---
ACCUCHECK RESULT OF 255, 6 UNITS REGULAR INSULIN SS GIVEN, SEE EMAR ALONG WITH PRN PAIN AND NAUSEA MEDICATION. ASSESSMENT COMPLETE, NO ACUTE CHANGES. CALL LIGHT IN REACH.
--- NOTE | 2021-12-16 05:28 | NUR ---
PT CALLED TO USE THE URINAL. PT STATES HE IS FEELING WHEEZY THIS AM AND HAS AN INHAILER AT HOME. CHECKED VS AND SPO2 BETWEEN 92-95%. PT REPORTS BREATHING BETTER AFTER SITTING UP IN BED. PT WOULD LIKE SOME PAIN MEDS SOON, ADVISED PT HIS PRIMARY RN WILL BE IN SOON WITH HIS IV ABX. PT DENIES FURTHER NEEDS, CALL LIGHT IS CLOSE.
--- NOTE | 2021-12-16 06:02 | NUR ---
NEW BAG IV FLUIDS HUNG AND INFUSING DIRECTED, IV SITE WNL. BRISK BLOOD RETURN NOTED. pt REPORTS PAIN 06/19. KILN FURNITURE CASTER TO MIX SCHEDULED AM IV ABX.
--- NOTE | 2021-12-16 06:28 | NUR ---
SCHEDULED IV ABX INFUSING, SEE EMAR. IV SITE WNL. NO FURTHER NEEDS, CALL LIGHT IN REACH.
--- NOTE | 2021-12-16 07:35 | NUR ---
Patient awake resting in bed, a&ox4. Patient reports his abdominal pain is tolerable at this time. IV patent. Patient has no current needs. Personal supplies and call light within reach.
--- NOTE | 2021-12-16 08:02 | NUR ---
PT UP TO BATHROOM AND BACK TO BED INDEPENDENTLY. CALL LIGHT WITHIN REACH. WHITE BOARD UDPATED. NO FURTHER NEEDS AT THIS TIME.
--- NOTE | 2021-12-16 09:58 | NUR ---
Patient in surgery at this time.
--- NOTE | 2021-12-16 11:27 | NUR ---
12/16/21 1127 OMAR CARO 1122-PATIENT TO PACU ON 10L VIA MASK. PATIENT IS NONAROUSABLE TO PAINFUL SITMULI. ORAL AIRWAY IN PLACE. RN DOING JAW THRUST TO MAINTAIN PATENT AIRWAY.
--- NOTE | 2021-12-16 13:12 | NUR ---
Patient to medical floor from surgery. Patient drowsy, arousable to verbal stimuli. Patient report pain is well controlled at this time. Vital stable, afebrile. Patient is on 2L oxygen per nc, respirations non labored. CPOX intact, sp02 92% at this time. Patient recently voided per reports. Surgical lap sites to abd x4, dressings are CDI. Patient's iv fluids started per provider order. Bed alarm intact. Instructed patient to call for help when needed.
--- NOTE | 2021-12-16 14:23 | NUR ---
Patient awake, tolerating clear liquids well. Patient reports his abd pain is tolerable. Lap sites unchanged, dressings are CDI. IV site is patent. Vital signs are stable. Patient now on room air, respirations even and non labored.
--- NOTE | 2021-12-16 15:41 | NUR ---
Patient resting in bed, eyes closed, respirations even and non labored. Patient's vital signs stable, afebrile. Patient tolerating clear liquids well. Lap sites unchanged, dressings CDI. Patient has no needs. Personal supplies and call light within reach.
--- NOTE | 2021-12-16 16:01 | NUR ---
BAMBI from Dr. Nava to advance patient's diet to 60g carb as tolerated. Obtained order to change current dilaudid frequency to prn as well as saline lock patient when tolerating po. Orders also obtained to change current blood sugar checks with sliding scale insulin to ac/hs schedule.
--- NOTE | 2021-12-16 17:12 | NUR ---
Admin dilaudid 1mg ivp for reports of 5/10 abd pain.
--- NOTE | 2021-12-16 17:51 | EKG ---
[facility] [address] [facility] [place] [address] Signed Sinus rhythm with occasional premature ventricular complexes Otherwise normal ECG When compared with ECG of 28-OCT-2019 01:53, premature ventricular complexes are now present Confirmed by RADHA BENÍTEZ MD ([id number]) on 12/16/2021 5:51:13 PM Electronically Signed By: RADHA BENÍTEZ MD 12/16/21 1751 PATIENT NAME: KWAKUSLAVA ELVIS Electrocardiogram DATE OF : 67 PHYSICIAN: RADHA BENÍTEZ MD REPORT #: [id number] REPORT IS CONFIDENTIAL AND NOT TO BE RELEASED WITHOUT AUTHORIZATION
--- NOTE | 2021-12-16 18:21 | NUR ---
Patient vomited while up walking with this RN in hallway. Patient assisted back to bed. Patient reports feeling much better after back in bed. Patient declined antiemetic. Encouraged patient to decrease po intake for next hour to calm his stomach, pt receptive.
--- NOTE | 2021-12-16 19:15 | NUR ---
[facility] RE[facility] ABBASI AT BEDSIDE. pt AWAKE AND RESTING IN BED, CPOX IN PLACE. SPO2 93%, HR WNL. RR EVEN AND UNLABORED, NO DISTRESS NOTED. LAP SITES X4 WNL, DINNER TRAY REMAINS AT BEDSIDE. NO NEEDS AT THIS TIME, CALL LIGHT IN REACH.
--- NOTE | 2021-12-16 22:30 | NUR ---
ASSESSMENT COMPLETE, SCHEDULED MEDS GIVEN (SEE EMAR). pt DENIES NAUSEA, REPORTS PAIN TOLERABLE. LAP SITES X4 UNCHANGED AND WNL. IV SITE WNL, IV ABX INFUSING DIRECTED. CPOX IN PLACE, pt ON RA. RR EVEN AND UNLABORED. CALL LIGHT IN REACH.
--- NOTE | 2021-12-16 23:50 | NUR ---
CALL LIGHT ANSWERED, pt REPORTS INCREASED PAIN W/ COUGH R/T WHEEZES. AUDIBLE WHEEZES NOTED, NO DISTRESS. pt ABLE TO HOLD CONVERSATION. CPOX REMAINS AT BEDSIDE, pt PLACED ON 1LNC FOR COMFORT AND AFTER DESAT WITH PAIN MEDICATION GIVEN AT THIS TIME. SEE EMAR. SPO2 88-90% ON RA. CALL MADE TO DR BENÍTEZ AND UPDATED ON pt's WHEEZES AND COUGH. TELEPHONE ORDERS RECIEVED FOR DUONEB Q2HPRN INHALATION AND 100MG PO TESSALON PERLES Q8HPRN. PRN COUGH MEDICATION GIVEN, RT DIMITRY TO GIVE PRN BREATHING TREATMENT. NO FURTHER NEEDS, CALL LIGHT IN REACH.
--- NOTE | 2021-12-17 01:30 | NUR ---
pt RESTING IN BED, EYES CLOSED. RR EVEN AND UNLABORED, SPO2 UPPER80'S ON 1LNC, TITRATED TO 2LNC- POSSIBLE SLEEP APNEA. CPOX REMAINS AT BEDSIDE. SPO2 LOW 90'S. pt ALLOWED TO REST, CALL LIGHT IN REACH.
--- NOTE | 2021-12-17 02:15 | NUR ---
BED ALARM GOING OFF, pt STANDING IN ROOM HEADING TO BATHROOM TO VOID. pt STATES, "OH I THOUGHT I HIT THE CALL LIGHT". pt SBA TO BATHROOM TO VOID AND BACK IN BED. ASSESSMENT COMPLETE, NO ACUTE CHANGES. CPOX IN PLACE, VSS AND I&O'S COMPLETE. 2LNC REMAINS IN PLACE, WHEEZES NO LONGER NOTED. pt STATES, "OH I FEEL SO MUCH BETTER THANK YOU". FRESH WATER PROVIDED, CALL LIGHT IN REACH.
--- NOTE | 2021-12-17 04:13 | NUR ---
CALL LIGHT ON. pt REPORTED THAT HE ROLLED OVER AND "SOMETHING PULLED" TENDERNESS IN UPPER ABD NEW LAP SITES. NO BRUISING NOTED. PROVIDED AN ICE PACK. WILL CALL IF PAIN INCREASES. CALL LIGHT WITHIN REACH.
--- NOTE | 2021-12-17 04:30 | NUR ---
prn toradol given for 910 pain in abd, see emar. PT recently called and reported increased pain in ruq after turning in bed, PT states, "i hope i didn't pull something" no change to lap sites, no bruising or increased shadowing noted. ice pack at bedside, no further needs. call light in reach.
--- NOTE | 2021-12-17 05:00 | NUR ---
call light answered, pt reports pain not improved, prn dilaudid given, see emar. no further needs, call light in reach.
--- NOTE | 2021-12-17 06:08 | NUR ---
VSS, I&O'S COMPLETE. pt ON RA, SPO2 WNL. IV ABX INFUSING DIRECTED, SITE WNL. CALL LIGHT IN REACH.
--- NOTE | 2021-12-17 07:42 | NUR ---
Shift report received from KAREEM Chen, pt resting safely in bed w/ call light in reach, pt denies any pain, nausea, or needs at this time.
[2021-12-17] MEDS ORDERED: VENTOLIN HFA18 GM INH (07:53)
[2021-12-17] MEDS ORDERED: METFORMIN HCL500 MG PO (07:57)
--- NOTE | 2021-12-17 09:41 | NUR ---
PT CALL LIGHT ON. PT REQUESTS PAIN MEDICATION. DR. SANTIAGO ON FLOOR AND STATES HE WOULD LIKE PT TO HAVE ORAL PAIN MEDICATION. PT REPORTS 10 PAIN IN ABDOMEN "IT STARTED AFTER I FINISHED EATING." SEE MAR FOR MEDICATION GIVEN. PT RESTING ON LEFT SIDE. AMBULATION ENCOURAGED. PT REPORTS "MAYBE LATER." BED RAILS UP. CALL LIGHT DARRION NAVARRO. PTS PRIMARY RN UPDATED.
--- NOTE | 2021-12-17 10:38 | NUR ---
Pt sitting up in bed w/ call light in reach. Morning assesment complete and scheduled meds given per provider order. Pt denies any pain or nasuea at this time.
--- NOTE | 2021-12-17 12:00 | NUR ---
Pt c/o continuing pain in abd not relieved by PRN oral pain meds, PRN IV pain meds given per pt request and as ordered by attending physician. Pt resting in bed safely w/ call light in reach. Pt denies any nausea or further needs at this time
--- NOTE | 2021-12-17 14:00 | NUR ---
Pt reports pain is relieved w/ PRN IV pain meds. Pt ambulating in hallway ind, pt denies any needs at this time
--- NOTE | 2021-12-17 14:24 | NUR ---
PATIENT IN BED RESTING AT THIS TIME. VITALS AND I&O'S CHARTED. CALL LIGHT IN REACH. NO FURTHER NEEDS AT THIS TIME
[2021-12-17] MEDS ORDERED: SULFAMETHOXAZO1 EACH PO (14:27)
--- NOTE | 2021-12-17 16:30 | NUR ---
Pt c/o 07/20 pain in abd but denies any nausea, PRN pain meds given, see EMAR. Pt denies any furhter needs at this time. pt resting safely in bed w/ call light in reach
--- NOTE | 2021-12-17 18:10 | NUR ---
Pt ambulated in hallway ind 3 full laps, pt reports having gas but no BM yet. Pt now back in bed resting safely w/ call light in reach, IV abx infusing per provider order, pt denies any pain, nausea, or needs at this time
--- NOTE | 2021-12-17 19:53 | NUR ---
REPORT RECEIVED FROM DAY SHIFT RN. PT LYING IN BED RESTING WITH EYES CLOSED. RESPIRATIONS EVEN. CALL LIGHT IN REACH. WHITE BOARD UPDATED.
--- NOTE | 2021-12-17 21:00 | NUR ---
PT REQUESTING PRN FOR PAIN. REPORTS CURRENT PRN FOR PAIN IS NOT EFFECTIVE. NOTIFIED. NEW TELEPHONE ORDERS RECEIVED. VERIFIED WITH READ BACK METHOD. EVENING ASSESSMENT COMPLETE. SCHEDULED MEDS ADMINSITERED PER EMAR. PRN FOR 810 ABD PAIN ADMINISTERED. PT DENIES NAUSEA. ABD FIRM AND DISTENDED. PT STATES ABD IS " A LITTLE" BIGGER THAN NORMAL. LAP SITES X 4 WITH STERI STRIPS AND BANDAIDS INTACT WITH OLD DRAINAGE. FRESH WATER AND SNACK PROVIDED. PT DENIES QUESTIONS OR CONCERNS. CALL LIGHT IN REACH.
--- NOTE | 2021-12-17 22:40 | NUR ---
IN ROOM TO START IV ABX. IV IN RAC NOT PATENT. DC'D WNL. NEW IV PLACED IN RFA PER PROTOCOL. PT JUHI WELL. IV ABX INFUSING. PT REPORTS PAIN MUCH IMPROVED WITH MEDICATION CHANGES. DENIES NAUSEA. MILK PROVIDED PER REQUEST.
--- NOTE | 2021-12-18 01:25 | NUR ---
PT RESTING IN BED WITH EYES CLOSED. RESPIRATIONS EVEN. CALL LIGHT IN REACH.
--- NOTE | 2021-12-18 03:00 | NUR ---
CALL LIGHT ANSWERED. PT REPORTS ABD PAIN 07/20. PRN FOR PAIN ADMINISTERED PER EMAR. ASSESSMENT COMPLETE. PT REPORTS FLATUS. BOWEL TONES ACTIVE. ABD FIRM AND DISTENDED. LAP SITES X 4 WITH BANDAIDS. OLD DRAINAGE NOTED. FRESH WATER PROVIDED. URINAL EMPTIED. NO FURTHER NEEDS.
--- NOTE | 2021-12-18 05:40 | NUR ---
VS AND I&O COMPLETE. IV ABX INFUSING WNL. PT REPORTS PAIN IS TOLERABLE. DENIES NAUSEA. FRESH WATER PROVIDED. NO FURTHER NEEDS AT THIS TIME.
--- NOTE | 2021-12-18 07:32 | NUR ---
Shift report received from RN Zakiya, pt resting in bed w/ call light in reach and eyes closed, RR even and unlabored on RA
--- NOTE | 2021-12-18 09:11 | NUR ---
PT IS REPORTING "MORE PAIN THAN BEFORE" AND IS LAYING ON HIS RIGHT SIDE, BREATHING HEAVILY AND MOANING. KAREEM BORRERO NOTIFIED. CALL LIGHT IN REACH. NO FURTHER NEEDS AT THIS TIME.
--- NOTE | 2021-12-18 10:00 | NUR ---
Pt sitting up in bed w/ call light in reach. Pt c/o 10/10 pain in abd/epigastric, PRN IV pain medication given due to pt being NPO. Morning assesment completed and only scheduled IV meds given all other PO morning medications held at this time, due to NPO status for MRCP this afternoon. Pt denies any other needs at this time
--- NOTE | 2021-12-18 11:35 | PATH ---
[facility] [address] [place], [place] [address] Signed SPECIMEN(S): A GALLBLADDER SPECIMEN SOURCE: A. GALLBLADDER CLINICAL HISTORY: Cholecystitis. FINAL PATHOLOGIC DIAGNOSIS: Gallbladder, cholecystectomy: - Chronic cholecystitis with intestinal metaplasia; negative for dysplasia. BRP:cml:C2NR MICROSCOPIC EXAMINATION: Histologic sections of all submitted blocks are examined by light microscopy. These findings, together with the gross examination, support the pathologic diagnosis. GROSS DESCRIPTION: The specimen, labeled "TH, gallbladder," is received in formalin and consists of Specimen: Previously opened gallbladder. Dimensions: 6.7 cm in length and 6.2 cm in inner circumference. Serosa: Violaceous, smooth and focally congested. Cystic Duct: Unobstructed. Calculi: Calculi are not grossly identified within the container or within the gallbladder. Mucosa: [place]-ibrahim and velvety. Wall thickness: 0.3 cm. Lymph node: No pericystic lymph nodes are grossly identified. Additional: None. Computer Information Science Professor sections are submitted in cassette (A1). JS (under the direct supervision of a pathologist) The Gross Description was prepared using a voice recognition system. The report was reviewed for accuracy; however, sound-alike word errors, addition and/or deletions may occur. If there is any question about this report, please contact Client Services. PERFORMING LABORATORY: The technical component was performed by [employer], [address] [place] [id number] (Personnel Records Clerk: Madison Prather MD; CLIA# [id number]). PATIENT NAME: SLAVA AMES PATHOLOGY DATE OF : 67 REPORT #: [id number] PHYSICIAN: DANIA PATHOLOGY PCP: JASBIR MCCOY MD REPORT IS CONFIDENTIAL AND NOT TO BE RELEASED WITHOUT AUTHORIZATION [facility] [address] [place], [place] [address] Signed [facility], [address] [place] [id number] (CLIA# [id number]). Diagnostician: Boni Julio MD Pathologist Electronically Signed 12/18/2021 Copies: ~ PATIENT NAME: SLAVA AMES PATHOLOGY DATE OF : 67 REPORT #: [id number] PHYSICIAN: DANIA PATHOLOGY PCP: JASBIR MCCOY MD REPORT IS CONFIDENTIAL AND NOT TO BE RELEASED WITHOUT AUTHORIZATION
--- NOTE | 2021-12-18 12:00 | NUR ---
Pt resting in bed safely w/ call light in reach. Pt c/o continuing pain, PRN pain meds given see EMAR.
--- NOTE | 2021-12-18 12:48 | NUR ---
PATIENT HEADED DOWN TO MRI AT THIS TIME.
--- NOTE | 2021-12-18 13:00 | NUR ---
Pt taken to have MRCP completed
--- NOTE | 2021-12-18 14:00 | NUR ---
Pt returned from imaging, pt c/o abd/epigastric pain, PRN IV pain meds given. Pt denies any nausea or other needs at this time
--- NOTE | 2021-12-18 14:20 | NUR ---
PATIENT IN BED RESTING AT THIS TIME. VITALS AND I&O'S CHARTED. CALL LIGHT IN REACH. NO FURTHER NEEDS AT THIS TIME.
--- NOTE | 2021-12-18 14:20 | NUR ---
KAREEM BORRERO REQUESTED I NOT DISTURB PT AT THIS TIME. WILL FOLLOW
[2021-12-18] MEDS ORDERED: VARENICLINE TART1 MG PO (14:29)
--- NOTE | 2021-12-18 15:20 | NUR ---
Pt states he lives alone. He has 0 issues gettin in and out of his home. He does not use any DME. He wants Sharmaine Velasco to be his medical represen tatchuy. He gives her authority to speak for him is he can no longer speak for himself. Sharmaine is out of town for 2 weeks and is not able to complete paperwork of a POA. Kate cupola charger to room and witnessed pt requesting above. Pt denies other needs and plans on dc to home when he is cleared medically. He states he is very painful and is going trevor to the OR as there may be a stone in his common bile duct. He denies other needs or requests.
--- NOTE | 2021-12-18 16:15 | NUR ---
MED REC COMPLETE
--- NOTE | 2021-12-18 19:21 | NUR ---
PATIENT SHOWERED IND. PATIENT NOW BACK TO BED. VITALS AND I&O'S CHARTED. CALL LIGHT IN REACH. NO FURTHER NEEDS AT THIS TIME.
--- NOTE | 2021-12-18 19:40 | NUR ---
REPORT RECEIVED FROM DAY SHIFT RN. PT LYING IN BED ALERT AND ORIENTED. DENIES NEEDS AT THIS TIME. WHITE BOARD UPDATED. CALL LIGHT IN REACH.
--- NOTE | 2021-12-18 21:15 | NUR ---
EVENING ASSESSMENT COMPLETE. SCHEDULED MEDS ADMINISTERED PER EMAR. PT REPORTS ABD PAIN 04/19. PRN FOR PAIN ADMINISTERED. CLEAR LIQUIDS PROVIDED. LAP SITES X 4 WITH BANDAIDS AND STERI STRIPS INTACT. OLD DRAINAGE NOTED. ABD FIRM AND DISTENDED, MORE SO ON THE RIGHT SIDE. PT DENIES NAUSEA. IV ABX INFUSING WNL. PT DENIES QUESTIONS OR CONCERNS. CALL LIGHT IN REACH.
--- NOTE | 2021-12-18 23:30 | NUR ---
PT RESTING ON RIGHT SIDE. EYES CLOSED. RESPIRATIONS EVEN. CALL LIGHT IN REACH.
--- NOTE | 2021-12-19 02:57 | NUR ---
IV PUMP ALARMING. ISSUE RESOLVED. PT REPORTS ABD PAIN 06/19. PRN FOR PAIN ADMINISTERED PER EMAR. PT UP TO VOID INDEPENDENTLY. NO FURTHER NEEDS. CALL LIGHT IN REACH.
--- NOTE | 2021-12-19 06:57 | NUR ---
VS AND I&O COMPLETE. IV ABX INFUSING WNL. PT REPORTS PAIN MUCH IMPROVED THIS MORNING. FRESH WATER PROVIDED. NO FURTHER NEEDS. CALL LIGHT IN REACH.
--- NOTE | 2021-12-19 07:16 | NUR ---
CALL LIGHT ANSWERED. PATIENT STATED "PAIN IN HIS BELLY IS COMING BACK". THIS JOURNEYMAN OPERATOR ASSISTANT TOLD PATIENT THAT WILL NOTIFY THE NURSE AND RIGHT AT THE MOMENT NIGHT NURSE ROBIN REPORTS TO DAY SHIFT NURSE. PATIENT UNDERSTOOD. KAREEM ESTEBAN AND KAREEM BORRERO NOTIFIED.
--- NOTE | 2021-12-19 07:37 | NUR ---
Shift report recieved from KAREEM Sigala, pt resting in bed w/ call light in reach. Pt c/o abd pain, KAREEM Sigala to medicate pt.
--- NOTE | 2021-12-19 07:45 | NUR ---
PT C/O UPPER ABD GAS PAIN, NOT RELATED TO INCISION SITES. DENIES NEED FOR PAIN MEDICATIONS. ENCOURAGED TO CHANGE POSITIONS AND AMBULATE TO ENCOURAGE PASSING GAS. PT STATED, 'NOT AT THIS TIME, I WILL IN A LITTLE BIT'.
--- NOTE | 2021-12-19 10:00 | NUR ---
Pt sitting up on sode of bed eating breakfast, w/ call light in reach. Morning assesment complete, scheduled meds given, and IV abx infusing per provider order. Pt denies any pain, nausea, or needs at this time.
--- NOTE | 2021-12-19 12:00 | NUR ---
Pt ambulating in hallway ind. Pt denies any pain, nausea, or needs at this time
--- NOTE | 2021-12-19 14:00 | NUR ---
Pt sitting up on side of bed w/ call light in reach. Pt denies any pain or nausea at this time, ice water and juice given upon request.
--- NOTE | 2021-12-19 14:40 | NUR ---
Spoke with pt. He states he is feeling much better today. Denies needs.
--- NOTE | 2021-12-19 15:43 | NUR ---
1535-DR. RODRIGUEZ AT BEDSIDE, PATIENT LAYING AT LEFT SIDE REPORTING PAIN TO ABDOMEN 8/10 MEDICATED PER EMAR WITH NORCO. PATIENT SHIVERING TEMPERATURE TAKEN 98.4 WARM BLANKETS APPLIED.
--- NOTE | 2021-12-19 16:00 | NUR ---
in room to evaluate pt, denies any pain or nausea at this time.
--- NOTE | 2021-12-19 16:45 | NUR ---
Notified by Erika and charge nurse, they have received calls from [place] Jorge requesting an update about pt. Spoke with Pavan and asked if he knows this person and he states she is a resident care aid for him and I can give an update. Called [place] and received a message she works for [employer] in [employer] which is a disability and support service organization. I was able to reach her and updated. She states she is a returned case inspector for Pavan and will transport him home from the hospital when he is discharged. She can also help him with other needs. She is concerned as he told her he is being transferred. Updated he is not transferring. [place] Jorge [employer] [phone] x [phone] Work cell [phone]. UPdated pt wants to complete a POA with his friend and she states she will fern picker the form for him.
--- NOTE | 2021-12-19 18:00 | NUR ---
Pt c/o pain in abd, PRN pain meds given. Pt denies any nausea or further needs at this time
--- NOTE | 2021-12-19 19:40 | NUR ---
REPORT FROM ADAIR - PT VOMITING - DIRECTOR LONG TERM CARE CALLING DR. BORRERO GAVE ZOFRAN. PT ABD DISTENED SCOPE SITES WNL, PT SITTING AT SIDE OF BED, THEN AMB TO BR TO TRY FOR BM - NO RESULTS.
--- NOTE | 2021-12-19 19:45 | NUR ---
CALLED WITH PT UPDATE, PT HAS SIGNIFICANT INCREASE IN PAIN THIS LATE AFTERNOON, REQUIRING IV DILAUDID FOR 10/10 PAIN ABD. PT SHAKING/GRIMACE AND MOANING, THIS DID IMPROVE PAIN FOR A SHORT TIME, ROUNDING AT SHIFT CHANGE PT SITTING AT SIDE OF BED VOMITING WITH EXTREME FORCE, GRUNTING ALSO. PT WAS ADMINISTERED ZOFRAN 4MG IV PRN AT THIS TIME. GAVE ORDER TO MAKE NPO AND IF PT HAS ANOTHER VOMIT ISSUE PLACE AN NGT TO LOW INTERMITTEN SUCTION. TO REASSESS LABS AND IMAGING IN AM.
--- NOTE | 2021-12-19 22:40 | NUR ---
ASSESSMENT COMPLETE - PT AMB IN ROOM, REPORTS FEELING BETTER - POSSIBLE GAS BUBBLE? PT NOTED FLATUS BUT NO BM. TOLL MIRALAX AND PO PAIN MEDS - OTHERWISE NPO.
--- NOTE | 2021-12-20 01:12 | NUR ---
PT EYES CLOSED RESP RATE EVEN.
--- NOTE | 2021-12-20 02:19 | NUR ---
pt amb in [place] - toll well - reports passing miky and feeling better.
--- NOTE | 2021-12-20 05:20 | NUR ---
reminded pt he is npo and bowel rest - tried to have bm - no success again. reports feeling better - passed gas void x1
--- NOTE | 2021-12-20 08:10 | NUR ---
PT RESTING IN BED ALERT AND PLEASANT THIS AM.
--- NOTE | 2021-12-20 08:49 | NUR ---
PT RESTING IN BED REPORTS PAIN 8/10, AT ABD/BACK. HE IS ALERT AND ORIENTED.
--- NOTE | 2021-12-20 08:49 | NUR ---
IN MORNING MEETING ADRESSED ORAL BLOOD SUGAR MEDS WITH DR FIGUEROA. VERBAL ORDER TO HOLD PO DIABETIC MEDICATIONS. ALSO ADREESED NEED TO SWITCH TO DEXTROSE FLUID. DR FIGUEROA WOULD LIKE TO WAIT AND KEEP FLUIDS THE SAME.
--- NOTE | 2021-12-20 10:26 | NUR ---
rounded for assessment this am, pt reports increase pain, liver labs this am improved, bt improved this am. fleets enima administered, suppository not effective.
--- NOTE | 2021-12-20 11:35 | NUR ---
PT OFF FLOOR TO IMAGING. IV ANTIBIOTICS WENT WITH PT. POTASSIUM ON STAND BY. PT REPORTS PAIN STILL 06/19. WILL NOTIFY PRIMARY NURSE.
--- NOTE | 2021-12-20 13:46 | NUR ---
PT BACK IN ROOM FROM IMAGING, HE HAD MED LOOSE STOOL IN BATHROOM, HE REPORTS PAIN HAS IMPROVED, DISCUSSED PAIN MEDICATION AVAILABLE AT 1400, THEN AMBULATE IN HALLS WOULD BE GOOD, PT AGREED. NOTED BT INCREASED IN RIGHT UPPER QUADS AND RIGHT LOWER QUAD, SAME IN LEFT LOWER QUAD. PT REQUEST FOOD AT THIS TIME, DISCUSSED PLAN OF CARE AND NEED TO CONTINUE BOWEL REST FOR NOW. PT VERBALIZED UNDERSTANDING.
--- NOTE | 2021-12-20 14:52 | NUR ---
PT UP AMBULATING IN HALLS, THEN CHIKA WITH IMAGING UP TO UNIT. PT REQUESTED TO AMBULATE TO IMAGING DEPT. CHIKA AND THIS RN SAID OK, BUT SHOULD TAKE A WHEELCHAIR IN CASE PT GETS TIRED OR PAINFUL.
--- NOTE | 2021-12-20 15:52 | NUR ---
PT PAINFUL THIS AM, SUPPOSITORY WITH NO RESULTS, ENEMA WITH FOUR SMALL FORMED HARD STOOL. HE HAS HAD KUB AND HIDA SCAN TODAY, HE REQUIRED A DOSE OF IV DILAUDID DURING SCAN, HE THEN CAME BACK HAD A MED/LARGE LIQUID STOOL, HE THEN REPORTED IMPROVED PAIN AFTER, HE THEN AMBULATED IN HALLS, HE REMAINS NPO FOR NOW FOR BOWEL REST. HE HAS BEEN ALERT ORIENTED AND PLEASANT THIS AFTERNOON. HE HAS POTASSIUM RIDER TODAY, IV ABX, HE IS ALLOWED TO TAKE HOME MEDICATIONS WITH SIPS OF WATER, NO DM MEDICATIONS HE IS NPO, MONITORING BG WITH Q6 ACCU CHECKS AND S/S. VOIDING QUANTITY SUFFICIENT. LIVER LABS IMPROVING.
--- NOTE | 2021-12-20 16:30 | NUR ---
Spoke with pt and he denies new needs. Pt has complained of increased pain. Dr. Hong evaluated and pt now NPO.
--- NOTE | 2021-12-20 16:48 | NUR ---
CALLED WITH RESULTS FROM HIDA SCAN, READ RESULTS TO AT THIS TIME.
--- NOTE | 2021-12-20 17:33 | NUR ---
PT UP AT BEDSIDE TO VOID IN URINAL, HE SAID HIS PAIN IS STILL SIGNIFICANT, BUT MORE TOLERABLE AT THIS TIME. HE WAS INTERESTED IN KNOWING MORE ABOUT HIS LAP JOSIE, EXPLAINED PROCEDURE AND PROVIDED PT COPY OF PHOTO, PT VERY EXCITED ABOUT HAVING PHOTO HE SAID HE IS INTERESTED IN THIS KIND OF THING "I THINK THAT IS SO COOL.
--- NOTE | 2021-12-20 18:00 | NUR ---
FACESHEET FAXED TO [facility] FAX NUMBER [phone].
--- NOTE | 2021-12-20 18:24 | NUR ---
pt off the unit at this time with imaging to have ct scan.
--- NOTE | 2021-12-20 20:49 | NUR ---
pt ambulating in room. on room air, gets nebs. lungs clear with crackles r side, cleared with cough. IVF infusing RFA, Abd large firm, tender, very hypoactive bowel tones, had several bms this am. 4 lap sites ss with old drainage. umbilical area. medicated with dilaudid IV c/o abd pain. cooperative with assessment. uses call light, on clear liquids
--- NOTE | 2021-12-21 01:25 | NUR ---
EYES CLOSED, NO RESP DISTRESS, ON ROOM AIR, IVF INFUSING, NO C/O ADVERSE REACTION TO ABX, F/C PATENT. CALL LIGHT AT BEDSIDE, NPO, WAITING FOR TRANSFER BED PLACEMENT
--- NOTE | 2021-12-21 01:42 | NUR ---
C/O 05/19 ABD PAIN, MEDICATED WITH DILAUDID 1MG IV, CBG 136, NO COVERAGE NEEDED. AWAKE, ALERT AND ORIENTED, USES CALL LIGHT, NPO, ORAL SPONGES AT BEDSIDE
--- NOTE | 2021-12-21 03:13 | NUR ---
transfer center called this facility, that they have a bed for pt. Dr Hong was notified nad transfer process started by office machine service supervisor
--- NOTE | 2021-12-21 03:42 | NUR ---
c/o h/a nad abd pain 05/19, medicated with Dilaudid 1mg Iv and ice pack to back of head
--- NOTE | 2021-12-21 06:28 | NUR ---
Pt has slept off and on this shift. On room air, independent in room. NPO, does own mouth care. IVF infusing w/o problems. tolerataing IV abx. Has been medicated with Dilaudid 1mg IV several times with good pain relief for abd pain and h/a, ice pack to back of head. Abd large firm tender, had a bm this shift. R abd 3 lap sites and 1 over umbilical area with old drainage and blisters around ss. hypoactive bowel tones. voiding QS urine. Aware of being transported to [place] this am. uses call light
--- NOTE | 2021-12-21 06:38 | NUR ---
Dr Hong here to see pt and sign transfer paperwork, aware of low K, will order med
--- NOTE | 2021-12-21 07:00 | NUR ---
DR RODRIGUEZ IN ROOM. MAG MCKEON STARTED MED TEACHING DONE WITH PT.
--- NOTE | 2021-12-21 07:46 | NUR ---
REPORT FROM RAS SERNA, PT WILL BE TRANSFERED THIS EARLY AM BY EMS TO [facility].
--- NOTE | 2021-12-21 08:01 | NUR ---
REPORT CALLED TO ANA THOREP RN AT [facility] AT THIS TIME.
--- NOTE | 2021-12-21 08:11 | DS ---
[facility] [address], [place] [address] Signed ADMISSION DATE: 12/15/2021 DISCHARGE DATE: 12/21/2021 FINAL DIAGNOSES: 1. Small bile leak. 2. Laparoscopic cholecystectomy without intraoperative cholangiogram with Dr. Blas Edwards. 3. Multiple x-rays including abdominal x-rays, abdominal ultrasound, MRCP, multiphase CT scan. HISTORY OF PRESENT ILLNESS: Pavan is a 56-year-old gentleman, who was admitted to the , Dr. Blas Nava with acute cholecystitis. There was some concern about sludge in his gallbladder on the ultrasound. He was taken to surgery the following day. He had a very deep intrahepatic gallbladder. He has fatty liver and it was very difficult to elevate his liver. Therefore, the standard dissection of the triangle of Calot was difficult. The cystic artery had been clipped and divided. The cystic duct had been divided with the linear stapler. There was a small amount of injury along the liver as well that had to be clipped. Overall, postoperatively Pavan was doing okay. As expected, his liver function test increase and his white count did not. He is HIV positive on two antivirals. He developed an ileus with some nausea and vomiting, and he had to be made n.p.o. An MRCP was done the following morning and the left and right hepatic ducts along with the common bile duct were all intact. The common bile duct was a little dilated as was the pancreatic duct. However, they both tapered nicely through the head of pancreas. No obvious stone or mass in the head of the pancreas. I have been asked to take over Dr. Nava's absence. We had ordered a HIDA scan and it showed just a small leak around the area of the gallbladder fossa. This could be a duct of Luschka or small leak from his cystic duct. At that point, he had some fevers and chills and I had added the cefepime and Flagyl. By morning, he was better in that regard. We felt he was best served with an ERCP with an endobiliary stent and allow this small leak to heal. Therefore, I contacted our tertiary referral center at [facility] in [place], [place]. Dr. Matthew Barber was kind enough to accept him in transfer. Those arrangements have been made and a bed is now available. I explained all this to Pavan in great detail. We reviewed the anatomy and ERCP as well. Of course, I am more than happy to see him when he returns to [place], [place] in office followup. He has expressed understanding and agrees with the above plan. DISCHARGE PLANS AND MEDICATIONS: He will be discharged down to [facility] under the care Dr. Matthew Barber and his team. Upon his return to [place], I will be happy to see him in office followup. No new medications given currently. Electronically Signed By: EDI RODRIGUEZ MD 12/21/21 0811 PATIENT NAME: PAVAN AMES DISCHARGE SUMMARY DATE OF : 67 REPORT #: [id number] PHYSICIAN: EDI RODRIGUEZ MD PCP: JASBIR MCCOY MD REPORT IS CONFIDENTIAL AND NOT TO BE RELEASED WITHOUT AUTHORIZATION [facility] [address], [place] [address] Signed Edi Rodriguez MD ALB/MODL /[id number] cc: MD Dr. Matthew Granados Copies: EDI RODRIGUEZ MD ~ Electronically Signed By: EDI RODRIGUEZ MD 12/21/21810 PATIENT NAME: PAVAN AMES DISCHARGE SUMMARY DATE OF : 67 REPORT #: [id number] PHYSICIAN: EDI RODRIGUEZ MD PCP: JASBIR MCCOY MD REPORT IS CONFIDENTIAL AND NOT TO BE RELEASED WITHOUT AUTHORIZATION
--- NOTE | 2021-12-21 08:23 | NUR ---
EMS ARRIVED FOR PT TRANSPORT
== END 2021-12-21 08:34 | disposition short-term general hospital (02) | DRG 418 ==
LOC: ED 16:27 → MS 16:29
PROVIDERS: ADMIT Surgery; ATTEND Surgery
PROC: 0FT44ZZ Resection of Gallbladder, Percutaneous Endoscopic Approach (ICD-10-PCS; principal; 2021-12-16 09:00)
DX: K81.0 Acute cholecystitis (principal); B20 Human immunodeficiency virus [HIV] disease; K56.7 Ileus, unspecified; K91.840 Postprocedural hemorrhage of a digestive system organ or structure following a digestive system procedure; J44.9 Chronic obstructive pulmonary disease, unspecified; B02.9 Zoster without complications; Z20.822 Contact with and (suspected) exposure to COVID-19; Z79.84 Long term (current) use of oral hypoglycemic drugs; E66.9 Obesity, unspecified; Z79.899 Other long term (current) drug therapy; M13.852 Other specified arthritis, left hip; M13.851 Other specified arthritis, right hip; F17.210 Nicotine dependence, cigarettes, uncomplicated; E11.65 Type 2 diabetes mellitus with hyperglycemia; K59.00 Constipation, unspecified; E87.6 Hypokalemia; E83.42 Hypomagnesemia; Z68.36 Body mass index [BMI] 36.0-36.9, adult
CPT/HCPCS: 00790; 36415; 74018; 74170; 74181; 76705; 78226; 80053; 80076; 81001; 83036; 83690; 83735; 84100; 84484; 85025; 88304; 93005; 93010; 94640; 94667; 94668; 94760; 94762; 96374; 96375; 99285-25; 99406; A9270; A9537; C9803; J0131; J0330; J0692; J1100; J1170; J1815; J1885; J2250; J2270; J2370; J2405; J2543; J2704; J2765; J3010; J3475; J3480; J7060; J7121; U0003

== ENCOUNTER 2022-01-13 20:58 | Emergency (ER) | payer OTHER ==
[~2022-01-13] VITALS: Ht 172.7 cm; Wt 101.6 kg
[~2022-01-13 20:58] MED LIST changes: +PRAVASTATIN SOD40 MG PO; +VARENICLINE TART1 MG PO; +VENTOLIN HFA18 GM INH
--- OUTSIDE RECORDS SUMMARY | 2022-01-13 21:02 | XMS ---
PreManage Notification: SLAVA AMES Security Product Safety Head Events No recent Security Events currently on file CRITERIA MET - Group Notification - PDMP - [facility] - 2 Visits in 30 Days CARE PROVIDERS JASBIR MCCOY [facility] Current PHONE: Unknown Kodi has no Care Guidelines for this patient. Vidhi VISIT COUNT (12 MO.) 4 [facility] TOTAL 4 NOTE: Visits indicate total known visits. ED/C VISIT TRACKING (12 MO.) 01/13/2022 20:59 [facility] [place] TYPE: Emergency COMPLAINT: - WOUND CARE 12/15/2021 16:28 [facility] [place] TYPE: Emergency COMPLAINT: - CHEST PAIN 06/14/2021 12:25 [facility] [place] TYPE: Emergency COMPLAINT: - L KNEE PAIN/INJURY DIAGNOSES: - Other skilled nursing (current) drug therapy - Nicotine dependence, unspecified, [...] - Nicotine dependence, unspecified, uncomplicated - Other termite exterminator helper (current) drug therapy - Sleep apnea, unspecified INPATIENT VISIT TRACKING (12 MO.) 12/21/2021 11:56 [facility] [place] TYPE: Surgical Services DIAGNOSES: - Acute pancreatitis without necrosis or infection, unspecified - Other postprocedural complications and disorders of digestive system - Other specified disorders of peritoneum - Injury of bile duct, initial encounter - Disease of biliary tract, unspecified - Other specified diseases of biliary tract - Type 2 diabetes mellitus without complications - Acute cholecystitis 12/17/2021 12:05 [facility] [place] TYPE: Medical Surgical COMPLAINT: - CHOLECYSTISIS DIAGNOSES: - Chronic obstructive pulmonary disease, unspecified - Body mass index [BMI] 36.0-36.9, adult - Ileus, unspecified - Acute cholecystitis - correction (current) use of oral hypoglycemic drugs - Type 2 diabetes mellitus without complications - Hypokalemia - Type 2 diabetes mellitus with hyperglycemia - Nicotine dependence, cigarettes, uncomplicated - Hypomagnesemia - Zoster without complications - Constipation, unspecified - Obesity, unspecified - Other skilled nursing (current) drug therapy - Other specified arthritis, right hip - Other specified arthritis, left hip [email or web address]
== END 2022-01-13 23:33 | disposition home or self-care (01) ==
LOC: ED 20:58
DX: K83.9 Disease of biliary tract, unspecified (principal); K82.9 Disease of gallbladder, unspecified; Z21 Asymptomatic human immunodeficiency virus [HIV] infection status; J44.9 Chronic obstructive pulmonary disease, unspecified; G47.30 Sleep apnea, unspecified; M16.0 Bilateral primary osteoarthritis of hip; F17.200 Nicotine dependence, unspecified, uncomplicated; Z79.84 Long term (current) use of oral hypoglycemic drugs; Z79.899 Other long term (current) drug therapy
CPT/HCPCS: 36415; 74177; 80053; 83690; 85025; 99284-25

== ENCOUNTER 2022-01-21 12:17 | Emergency (ER) | payer OTHER ==
[~2022-01-21] VITALS: Ht 172.7 cm; Wt 101.6 kg
--- OUTSIDE RECORDS SUMMARY | 2022-01-21 12:20 | XMS ---
PreManage Notification: SLAVA AMES Security Presiding Judge Events No recent Security Events currently on file CRITERIA MET - Group Notification - PDMP - [facility] - 2 Visits in 30 Days CARE PROVIDERS JASBIR MCCOY [facility] Current PHONE: Unknown Kodi has no Care Guidelines for this patient. Vidhi VISIT COUNT (12 MO.) 5 [facility] TOTAL 5 NOTE: Visits indicate total known visits. ED/C VISIT TRACKING (12 MO.) 01/21/2022 12:18 [facility] [place] TYPE: Emergency COMPLAINT: - POST SURGICAL PROBLEM 01/13/2022 20:59 [facility] [place] TYPE: Emergency COMPLAINT: - WOUND CARE DIAGNOSES: - Nicotine dependence, unspecified, uncomplicated - Other mechanical complication of other specified internal prosthetic devices, implants and grafts, initial encounter - Bilateral primary osteoarthritis of hip - Other nursing home (current) drug therapy - Chronic obstructive pulmonary disease, unspecified - manager long term care (current) use of oral hypoglycemic drugs - Sleep apnea, unspecified - Disease of biliary tract, unspecified - Disease of gallbladder, unspecified 12/15/2021 16:28 [facility] [place] TYPE: Emergency COMPLAINT: - CHEST PAIN 06/14/2021 12:25 [facility] [place] TYPE: Emergency COMPLAINT: - L KNEE PAIN/INJURY DIAGNOSES: - Other terminal gauger (current) drug therapy - Nicotine dependence, unspecified, [...] - Nicotine dependence, unspecified, uncomplicated - Other terminal gauger (current) drug therapy - Sleep apnea, unspecified INPATIENT VISIT TRACKING (12 MO.) 12/21/2021 11:56 [facility] [place] TYPE: Surgical Services DIAGNOSES: - Acute [...] Medical Surgical COMPLAINT: - CHOLECYSTISIS DIAGNOSES: - Type 2 diabetes mellitus with hyperglycemia - Other specified arthritis, left hip - Other specified arthritis, right hip - Constipation, unspecified - Type 2 diabetes mellitus with hyperglycemia - Body mass index [BMI] 36.0-36.9, adult - Chronic obstructive pulmonary disease, unspecified - Hypokalemia - Other terminal gauger (current) drug therapy - Obesity, unspecified - Constipation, unspecified - Other specified arthritis, left hip - Zoster without complications - Other specified arthritis, right hip - Hypomagnesemia - Nicotine dependence, cigarettes, uncomplicated - Chronic obstructive pulmonary disease, unspecified - Postprocedural hemorrhage of a digestive system organ or structure following a digestive system procedure - Nicotine dependence, cigarettes, uncomplicated - Hypokalemia - Type 2 diabetes mellitus without complications - Zoster without complications - Obesity, unspecified - Hypomagnesemia - manager long term care (current) use of oral hypoglycemic drugs - Other nursing home (current) drug therapy - Acute cholecystitis - Ileus, unspecified - Ileus, unspecified - Body mass index [BMI] 36.0-36.9, adult - longterm (current) use of oral hypoglycemic drugs [email or web address]
[2022-01-21] MEDS ORDERED: METFORMIN HCL500 MG PO (16:46)
--- NOTE | 2022-01-22 09:35 | EKG ---
[facility] [address] [facility] [place] [address] Signed Sinus tachycardia Otherwise normal ECG When compared with ECG of 15-DEC-2021 16:34, premature ventricular complexes are no longer present Confirmed by RADHA BENÍTEZ MD ([id number]) on 01/22/2022 9:35:41 AM Electronically Signed By: RADHA BENÍTEZ MD 01/22/22 0935 PATIENT NAME: KWAKUSLAVA ELVIS Electrocardiogram DATE OF : 67 PHYSICIAN: RADHA BENÍTEZ MD REPORT #: [id number] REPORT IS CONFIDENTIAL AND NOT TO BE RELEASED WITHOUT AUTHORIZATION
== END 2022-01-21 17:05 | disposition home or self-care (01) ==
LOC: ED 12:17
DX: R10.11 Right upper quadrant pain (principal); E11.65 Type 2 diabetes mellitus with hyperglycemia; Z21 Asymptomatic human immunodeficiency virus [HIV] infection status; J44.9 Chronic obstructive pulmonary disease, unspecified; M19.90 Unspecified osteoarthritis, unspecified site; G47.30 Sleep apnea, unspecified; F17.200 Nicotine dependence, unspecified, uncomplicated; Z79.84 Long term (current) use of oral hypoglycemic drugs; Z79.899 Other long term (current) drug therapy
CPT/HCPCS: 36415; 71045; 74177; 80053; 81001; 83605; 83690; 85025; 87088; 93005; 93010; 96375; 96376; 99284-25; J1170; J2405; J7030; Q9967

== ENCOUNTER 2022-01-28 14:52 | Emergency (ER) | payer OTHER ==
[~2022-01-28] VITALS: Ht 172.7 cm; Wt 101.6 kg
--- OUTSIDE RECORDS SUMMARY | 2022-01-28 14:54 | XMS ---
PreManage Notification: SLAVA AMES Security Pattern Chart Writer Events No recent Security Events currently on file CRITERIA MET - PDMP - Group Notification - [facility] - 2 Visits in 30 Days CARE PROVIDERS AJSBIR MCCOY [facility] Current PHONE: Unknown Kodi has no Care Guidelines for this patient. EMargaret VISIT COUNT (12 MO.) 6 [facility] TOTAL 6 NOTE: Visits indicate total known visits. ED/C VISIT TRACKING (12 MO.) 01/28/2022 14:52 [facility] [place] TYPE: Emergency COMPLAINT: - CHEST PAIN 01/21/2022 12:18 [facility] [place] TYPE: Emergency COMPLAINT: - POST SURGICAL PROBLEM DIAGNOSES: - Type 2 diabetes mellitus with hyperglycemia - Unspecified osteoarthritis, unspecified site - Chronic obstructive pulmonary disease, unspecified - Sleep apnea, unspecified - Nicotine dependence, unspecified, uncomplicated - longterm (current) use of oral hypoglycemic drugs - Other group home (current) drug therapy - Right upper quadrant pain 01/13/2022 20:59 [facility] [place] TYPE: Emergency COMPLAINT: - WOUND CARE DIAGNOSES: - Nicotine dependence, unspecified, uncomplicated - Other mechanical complication of other specified internal prosthetic devices, implants and grafts, initial encounter - Bilateral primary osteoarthritis of hip - Other group home (current) drug therapy - Chronic obstructive pulmonary disease, unspecified - longterm (current) use of oral hypoglycemic drugs - Sleep apnea, unspecified - Disease of biliary tract, unspecified - Disease of gallbladder, unspecified 12/15/2021 16:28 [facility] [place] TYPE: Emergency COMPLAINT: - CHEST PAIN 06/14/2021 12:25 [facility] [place] TYPE: Emergency COMPLAINT: - L KNEE PAIN/INJURY DIAGNOSES: - Other group home (current) drug therapy - Nicotine dependence, unspecified, uncomplicated - Sleep apnea, unspecified - Fall on same level from slipping, tripping and stumbling with subsequent striking against unspecified object, initial encounter - Contusion of left knee, initial encounter - Effusion, left knee 02/23/2021 18:41 [facility] [place] TYPE: Emergency COMPLAINT: - WEAKNESS DIAGNOSES: - Type 2 diabetes mellitus with hyperglycemia - Nicotine dependence, unspecified, uncomplicated - Other terminal clerk (current) drug therapy - Sleep apnea, unspecified INPATIENT VISIT TRACKING (12 MO.) 12/21/2021 11:56 [facility] TYPE: Surgical Services DIAGNOSES: - Acute [...] pulmonary disease, unspecified - Hypokalemia - Other group home (current) drug therapy - Obesity, unspecified - [...] complications - Obesity, unspecified - Hypomagnesemia - medical terminologist (current) use of oral hypoglycemic drugs - Other terminal clerk (current) drug therapy - Acute cholecystitis - Ileus, unspecified - Ileus, unspecified - Body mass index [BMI] 36.0-36.9, adult - medical terminologist (current) use of oral hypoglycemic drugs [email or web address]
[2022-01-28] MEDS ORDERED: HYDROCODON-ACE1 EA11 PO (19:34)
[2022-01-28] MEDS ORDERED: ONDANSETRON ODT8 MG PO (19:34)
--- NOTE | 2022-01-29 12:37 | EKG ---
[facility] [address] [facility] [place] [address] Signed Sinus tachycardia Otherwise normal ECG When compared with ECG of 21-JAN-2022 12:32, No significant change was found Confirmed by RADHA BENÍTEZ MD ([id number]) on 01/29/2022 12:37:13 PM Electronically Signed By: RADHA BENÍTEZ MD 01/29/22 1237 PATIENT NAME: SLAVA AMES ELVIS Electrocardiogram DATE OF : 67 PHYSICIAN: RADHA BENÍTEZ MD REPORT #: [id number] REPORT IS CONFIDENTIAL AND NOT TO BE RELEASED WITHOUT AUTHORIZATION
== END 2022-01-28 19:56 | disposition home or self-care (01) ==
LOC: ED 14:52
DX: R10.13 Epigastric pain (principal); Z21 Asymptomatic human immunodeficiency virus [HIV] infection status; J44.9 Chronic obstructive pulmonary disease, unspecified; G47.30 Sleep apnea, unspecified; M16.0 Bilateral primary osteoarthritis of hip; F17.200 Nicotine dependence, unspecified, uncomplicated; Z79.84 Long term (current) use of oral hypoglycemic drugs; Z79.899 Other long term (current) drug therapy
CPT/HCPCS: 36415; 71045; 80053; 83690; 84484; 85025; 93005; 93010; 96374; 96375; 99284-25; A9270; J1170; J1790; J7030

== ENCOUNTER 2022-02-10 17:52 | Emergency (ER) | payer OTHER ==
[~2022-02-10] VITALS: Ht 172.7 cm; Wt 99.9 kg
[~2022-02-10 17:52] MED LIST changes: +HYDROCODON-ACE1 EA11 PO; +ONDANSETRON ODT8 MG PO
--- OUTSIDE RECORDS SUMMARY | 2022-02-10 17:54 | XMS ---
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 Vidhi VISIT COUNT (12 MO.) [address] [place] [address] TOTAL 7 NOTE: Visits indicate total known visits. ED/C VISIT TRACKING (12 MO.) 02/10/2022 17:52 [facility] [place] TYPE: Emergency COMPLAINT: - CHEST PAIN 01/28/2022 14:52 [facility] [place] TYPE: Emergency COMPLAINT: - CHEST PAIN DIAGNOSES: - Other general operations manager (current) drug therapy - Bilateral primary osteoarthritis of hip - Epigastric pain - Nicotine dependence, unspecified, uncomplicated - Sleep apnea, unspecified - Chronic obstructive pulmonary disease, unspecified - penitentiary (current) use of oral hypoglycemic drugs - Nausea with vomiting, unspecified 01/21/2022 12:18 [facility] [place] TYPE: Emergency COMPLAINT: - POST SURGICAL PROBLEM DIAGNOSES: - Type 2 diabetes mellitus with hyperglycemia - Unspecified osteoarthritis, unspecified site - Chronic obstructive pulmonary disease, unspecified - Sleep apnea, unspecified - Nicotine dependence, unspecified, uncomplicated - penitentiary (current) use of oral hypoglycemic drugs - Other retirement (current) drug therapy - Right upper quadrant pain 01/13/2022 20:59 [facility] [place] TYPE: Emergency COMPLAINT: - WOUND CARE DIAGNOSES: - Nicotine dependence, unspecified, uncomplicated - Other mechanical complication of other specified internal prosthetic devices, implants and grafts, initial encounter - Bilateral primary osteoarthritis of hip - Other retirement (current) drug therapy - Chronic obstructive pulmonary disease, unspecified - analytical lab technician (current) use of oral hypoglycemic drugs - Sleep apnea, unspecified - Disease of biliary tract, unspecified - Disease of gallbladder, unspecified 12/15/2021 16:28 [facility] [place] TYPE: Emergency COMPLAINT: - CHEST PAIN 06/14/2021 12:25 [facility] [place] TYPE: Emergency COMPLAINT: - L KNEE PAIN/INJURY DIAGNOSES: - Other retirement (current) drug therapy - Nicotine dependence, unspecified, uncomplicated - Sleep apnea, unspecified - Fall on same level from slipping, tripping and stumbling with subsequent striking against unspecified object, initial encounter - Contusion of left knee, initial encounter - Effusion, left knee 02/23/2021 18:41 [facility] [place] TYPE: Emergency COMPLAINT: - WEAKNESS DIAGNOSES: - Type 2 diabetes mellitus with hyperglycemia - Nicotine dependence, unspecified, uncomplicated - Other general operations manager (current) drug therapy - Sleep apnea, unspecified INPATIENT VISIT TRACKING (12 MO.) 12/21/2021 11:56 [facility] [place] TYPE: Surgical Services DIAGNOSES: - Acute [...] pulmonary disease, unspecified - Hypokalemia - Other retirement (current) drug therapy - Obesity, unspecified - [...] complications - Obesity, unspecified - Hypomagnesemia - analytical lab technician (current) use of oral hypoglycemic drugs - Other retirement (current) drug therapy - Acute cholecystitis - Ileus, unspecified - Ileus, unspecified - Body mass index [BMI] 36.0-36.9, adult - penitentiary (current) use of oral hypoglycemic drugs [email or web address]
[2022-02-10] MEDS ORDERED: SULFAMETHOXAZO1 EACH PO (18:03)
--- NOTE | 2022-02-10 22:20 | EKG ---
[facility] [address] [place], [place] [address] Signed Sinus tachycardia Otherwise normal ECG When compared with ECG of 28-JAN-2022 14:55, No significant change was found Confirmed by SAEED PITTMAN MD ([id number]) on 02/10/2022 10:20:12 PM Electronically Signed By: SAEED PITTMAN MD 02/10/222219 PATIENT NAME: SLAVA AMES Electrocardiogram DATE OF : 67 PHYSICIAN: SAEED PITTMAN MD REPORT #: [id number] REPORT IS CONFIDENTIAL AND NOT TO BE RELEASED WITHOUT AUTHORIZATION
== END 2022-02-11 21:35 | disposition short-term general hospital (02) ==
LOC: ED 17:52
DX: K85.90 Acute pancreatitis without necrosis or infection, unspecified (principal); Z96.89 Presence of other specified functional implants; Z21 Asymptomatic human immunodeficiency virus [HIV] infection status; J44.9 Chronic obstructive pulmonary disease, unspecified; G47.30 Sleep apnea, unspecified; M16.0 Bilateral primary osteoarthritis of hip; F17.200 Nicotine dependence, unspecified, uncomplicated; Z79.899 Other long term (current) drug therapy; Z79.84 Long term (current) use of oral hypoglycemic drugs; Z20.822 Contact with and (suspected) exposure to COVID-19
CPT/HCPCS: 36415; 71045; 74177; 80053; 83690; 83735; 84484; 85025; 93005; 93010; 96375; 96376; 99285-25; C9803; J1170; J2405; J7030; Q9967; U0003

== ENCOUNTER 2023-07-26 21:25 | Emergency (ER) | payer OTHER ==
[~2023-07-26] VITALS: Ht 172.7 cm; Wt 110.3 kg
--- OUTSIDE RECORDS SUMMARY | 2023-07-26 21:26 | XMS ---
PreManage Notification: SLAVA AMES Security Line Assembly Utility Worker Events No recent Security Events currently on file CRITERIA MET - Group Notification - PDMP CARE PROVIDERS JASBIR MCCOY [facility] Current PHONE: Unknown Kodi has no Care Guidelines for this patient. EMargaret VISIT COUNT (12 MO.) 1 [facility] TOTAL 1 NOTE: Visits indicate total known visits. ED/UCC VISIT TRACKING (12 MO.) 07/26/2023 21:26 [facility] [place] TYPE: Emergency COMPLAINT: - HIGH BLOOD SUGAR INPATIENT VISIT TRACKING (12 MO.) No inpatient visits to display in this time frame [email or web address]
[2023-07-26 23:14] LABS: BASOPHILS 1.9 % (0-2); BILIRUBIN, URINE NEGATIVE (negative); BLOOD/HGB, URINE TRACE-I (Negative); EOSINOPHILS 3.1 % (0-6); HEMOGLOBIN 15.5 g/dL (12.0-18.0); KETONE, URINE NEGATIVE (Negative); LEUK ESTERASE, URINE NEGATIVE (negative); LYMPHOCYTES 34.7 % (24-44); MCH 30.6 (27-36); MCHC 33.7 g/dl (30-36); MCV 90.9 fl (81-99); MONOCYTES 5.3 % (0-12); NITRITE, URINE NEGATIVE (negative); PLATELET COUNT 195 K/uL (140-440); RBC 5.06 M/ul (4.3-5.7); RDW 13.8 (10.5-15.0)
[2023-07-26 23:25] LABS: BACTERIA, URINE NONE SEEN /hpf (negative); CASTS, URINE NONE SEEN \\lpf; COLLECTION TYPE, URINE CLEAN CATCH; CRYSTALS, URINE NONE SEEN (0-1+); EPITHELIAL CELLS, URINE SQUAMOUS 1+ /lpf (0-1+); RED BLOOD CELLS, URINE 0-1 /hpf (0-5); REFLEX CULTURE, URINE No (No); WHITE BLOOD CELLS, URINE 0-1 /HPF (0-5)
[2023-07-26 23:26] LABS: ALBUMIN 3.8 g/dL (3.4-5.0); ALBUMIN/GLOBULIN RATIO 0.86 (1.1-2.4); BILIRUBIN, TOTAL 0.5 ng/dL (0.2-1.0); BUN/CREATININE RATIO 24.5 (6.0-28.6); CALCIUM 8.9 mg/dL (8.5-10.1); CREATININE, SERUM 1.02 mg/dL (0.70-1.30); PROTEIN, TOTAL 8.2 g/dL (6.4-8.2)
[2023-07-26 23:49] LABS: INFLUENZA B NAA NEGATIVE (NEGATIVE); RESPIRATORY SYNCYTIAL VIR NAA NEGATIVE (NEGATIVE)
[2023-07-27 01:24] VITALS: BP 132/91
== END 2023-07-27 01:28 | disposition home or self-care (01) ==
LOC: ED 21:25
PROVIDERS: Emergency Medicine
DX: E11.65 Type 2 diabetes mellitus with hyperglycemia (principal); E86.0 Dehydration; J44.9 Chronic obstructive pulmonary disease, unspecified; F17.200 Nicotine dependence, unspecified, uncomplicated; Z21 Asymptomatic human immunodeficiency virus [HIV] infection status; Z20.822 Contact with and (suspected) exposure to COVID-19; Z79.4 Long term (current) use of insulin; Z79.84 Long term (current) use of oral hypoglycemic drugs
CPT/HCPCS: 36415; 80053; 81001; 82010; 82800; 85025; 87502; 99284; C9803; U0002

== ENCOUNTER 2025-05-28 16:55 | Emergency (ER) | payer OTHER ==
[~2025-05-28] VITALS: Ht 172.7 cm; Wt 121.7 kg
[~2025-05-28 16:55] MED LIST changes: +FLUCONAZOLE150 MG PO; +GABAPENTIN100 MG PO; +HYDROXYZINE HCL50 MG PO; +INSULIN GL100 UNIT/2 SUB-Q; +VICTOZA 3-0.6 MG/0.1 SUB-Q
--- OUTSIDE RECORDS SUMMARY | 2025-05-28 16:58 | XMS ---
PreManage Notification: SLAVA AMES Security Beauty Operator Apprentice Events No recent Security Events currently on file CRITERIA MET - Group Notification CARE PROVIDERS -, [facility]ist: Clinical Services Manager Current [place] PHONE: [phone] [place], [facility]/Center: [facility] ([facility]) PHONE: [phone] BETTYE DAVIDSON Physician Addictions Recovery Specialist Current PHONE: [phone] [place] has no Care Guidelines for this patient. E.D. VISIT COUNT (12 MO.) 1 CHELSEA Monge TOTAL 1 NOTE: Visits indicate total known visits. ED/UCC VISIT TRACKING (12 MO.) 05/28/2025 16:56 CHELSEA Silva [place] TYPE: Emergency COMPLAINT: - CHEST PAIN,SOB INPATIENT VISIT TRACKING (12 MO.) No inpatient visits to display in this time frame [id number]
[2025-05-28] MEDS ORDERED: ALBUTEROL/IPRATROPIUM 3 ML NEB ONE (17:04)
[2025-05-28] MEDS ORDERED: TRULICITY1.5 MG/0.5 SQ (17:07)
[2025-05-28] MEDS ORDERED: DEXCOM G7 SENS1 EACH MC (17:07)
[2025-05-28] MEDS ORDERED: ASPIRIN 81 MG CHEW PO ONE (17:15)
[2025-05-28] MEDS ORDERED: ALBUTEROL/IPRATROPIUM 3 ML NEB INH ONE (17:15)
[2025-05-28 17:28] LABS: BASOPHILS 0.5 % (0.2-1.2); EOSINOPHILS 2.4 % (0.8-7.0); LYMPHOCYTES 40.1 % (21.8-53.1); MCH 28.8 PG (25.7-32.2); MCHC 33.0 g/dL (32.3-36.5); MCV 87.4 fL (79.0-92.2); MONOCYTES 7.1 % (5.3-12.2); NEUTROPHILS 49.6 % (34.0-67.9); RBC 5.31 M/uL (4.63-6.08)
[2025-05-28 17:54] LABS: ALT (SGPT) 35 U/L (14-59); AST (SGOT) 16 U/L (15-37); GLOMERULAR FILTRATION RATE,EST 100 mL/min (>60); PROTEIN, TOTAL 7.5 g/dL (6.4-8.2); UREA NITROGEN 15 mg/dL (7-18)
[2025-05-28] MEDS ORDERED: KETOROLAC TROMETHAMINE 15 MG/ML VIAL IM ONE (18:15)
[2025-05-28 18:30] VITALS: BP 127/81
--- NOTE | 2025-05-29 13:45 | EKG ---
[facility] [address] [facility] [place] [address] Signed Normal sinus rhythm with sinus arrhythmia Normal ECG When compared with ECG of 10-Feb-2022 17:53:19 No significant change was found Confirmed by Carlo Metcalf MD ([id number]) on 05/29/2025 1:45:05 PM Electronically Signed By: CARLO METCALF MD 05/29/25 1345 PATIENT NAME: KWAKUSLAVA ELVIS Electrocardiogram DATE OF : 67 PHYSICIAN: CARLO METCALF MD REPORT #: [id number] REPORT IS CONFIDENTIAL AND NOT TO BE RELEASED WITHOUT AUTHORIZATION
== END 2025-05-28 18:47 | disposition home or self-care (01) ==
LOC: ED 16:55
PROVIDERS: Emergency Medicine
DX: R07.9 Chest pain, unspecified (principal); J44.89 Other specified chronic obstructive pulmonary disease; J45.901 Unspecified asthma with (acute) exacerbation; E11.65 Type 2 diabetes mellitus with hyperglycemia; G47.30 Sleep apnea, unspecified; F17.200 Nicotine dependence, unspecified, uncomplicated; Z79.899 Other long term (current) drug therapy; Z79.4 Long term (current) use of insulin
CPT/HCPCS: 36415; 71045; 80053; 83880; 84484; 85025; 93005; 93010; 94640; 96372; 99285-25; A9270; J1885

== ENCOUNTER 2025-06-03 16:37 | Emergency (ER) | payer OTHER ==
[~2025-06-03] VITALS: Ht 172.7 cm; Wt 120.5 kg
[~2025-06-03 16:37] MED LIST changes: +DEXCOM G7 SENS1 EACH MC; +TRULICITY1.5 MG/0.5 SQ
--- OUTSIDE RECORDS SUMMARY | 2025-06-03 16:44 | XMS ---
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 E.D. VISIT COUNT (12 MO.) 2 CHELSEA Monge TOTAL 2 NOTE: Visits indicate total known visits. 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
[2025-06-03] MEDS ORDERED: INSULIN GL300 UNIT/1 SQ (16:47)
[2025-06-03 16:54] LABS: BASOPHILS 0.6 % (0.2-1.2); EOSINOPHILS 2.7 % (0.8-7.0); LYMPHOCYTES 39.7 % (21.8-53.1); MCH 28.5 PG (25.7-32.2); MCHC 32.8 g/dL (32.3-36.5); MCV 87.1 fL (79.0-92.2); MONOCYTES 6.9 % (5.3-12.2); NEUTROPHILS 49.8 % (34.0-67.9); RBC 5.64 M/uL (4.63-6.08)
[2025-06-03] MEDS ORDERED: ASPIRIN 81 MG CHEW PO ONE (17:00)
[2025-06-03 17:16] LABS: ALT (SGPT) 27.0 U/L (14-59); AST (SGOT) 4.0 U/L (15-37); GLOMERULAR FILTRATION RATE,EST 100.0 mL/min (>60); PROTEIN, TOTAL 8.2 g/dL (6.4-8.2); UREA NITROGEN 17.0 mg/dL (7-18)
[2025-06-03 17:58] VITALS: BP 138/78
--- NOTE | 2025-06-04 22:34 | EKG ---
[facility] [address] [facility] [facility] [place] [address] Signed Normal sinus rhythm Normal ECG When compared with ECG of 28-MAY-2025 16:52, No significant change was found Confirmed by Ar Stevenson MD () on 06/04/2025 10:33:54 PM Electronically Signed By: AR STEVENSON MD 06/04/25 2234 PATIENT NAME: SLAVA AMES Electrocardiogram DATE OF : 67 PHYSICIAN: AR STEVENSON MD REPORT #: [id number] REPORT IS CONFIDENTIAL AND NOT TO BE RELEASED WITHOUT AUTHORIZATION
== END 2025-06-03 17:58 | disposition home or self-care (01) ==
LOC: ED 16:37
PROVIDERS: Emergency Medicine
DX: R07.9 Chest pain, unspecified (principal); G47.30 Sleep apnea, unspecified; J44.89 Other specified chronic obstructive pulmonary disease; J45.909 Unspecified asthma, uncomplicated; F17.200 Nicotine dependence, unspecified, uncomplicated; Z79.4 Long term (current) use of insulin; Z79.899 Other long term (current) drug therapy
CPT/HCPCS: 36415; 71045; 80053; 83735; 84484; 85025; 93005; 93010; 99285-25; A9270